=== PATIENT | male | born 1955 | race Caucasian/White ===

== ENCOUNTER 2017-03-25 19:41 | Inpatient (IN) ==
--- NOTE | 2017-03-25 19:48 | Emergency Department Note ---
Disposition Clinical Impression: Non-STEMI (non-ST elevated myocardial infarction) Disposition: Admitted As Inpatient Condition: Serious Referrals: Zackary Hale MD [Primary Care Provider] - Forms: Work/School Release, ED Satisfaction Letter Time of Disposition: 20:56 General Adult HPI - General Chief complaint: ED Abdominal Pain Stated complaint: Abdominal pain Time Seen by Provider: 03/25/17 19:43 Source: patient Mode of arrival: ambulatory Limitations: no limitations Nursing Notes Reviewed: Yes Vital Signs Reviewed: Yes - History of Present Illness HPI Narrative: 61-year-old male who comes in complaining of diaphoresis and cough and thinks he may have pneumonia. Patient also complains of abdominal pain however he says he's had that since 2004. Patient's had 3 hernia operations in the early 1999 and states he's had intermittent crampy abdominal pain since then. Patient was actually seen last PM and had a CT scan which was negative lab work was negative. Her for further evaluation. Pt Subjective Complaint: Diaphoresis cough Onset (ago): day(s) Pain Scale: 0 Consistency: constant Improves with: nothing Associated symptoms: Reports: fever/chills - Related Data Home Medications Medication Instructions Recorded Confirmed Albuterol Sulfate [Albuterol 0 puff IH Q4HR PRN 05/17/15 09/28/15 Inhaler] Amlodipine [Norvasc] 5 mg PO DAILY 05/17/15 09/28/15 Atorvastatin Calcium [Lipitor] 80 mg PO HS 05/17/15 09/28/15 Cholestyramine 4 gm PO BIDAC 05/17/15 09/28/15 Ezetimibe [Zetia] 10 mg PO DAILY 05/17/15 09/28/15 GlipiZIDE XL (24 HR) [Glucotrol XL] 10 mg PO BID 05/17/15 09/28/15 Lisinopril [Zestril] 20 mg PO DAILY 05/17/15 09/28/15 Metformin HCl [Glucophage] 1,000 mg PO BID 05/17/15 09/28/15 Pioglitazone [Actos] 45 mg PO 0800 05/17/15 09/28/15 Saxagliptin HCl [Onglyza] 5 mg PO DAILY 05/17/15 09/28/15 Tiotropium [Spiriva] 18 mcg IH 0700 05/17/15 09/28/15 Cyclobenzaprine [Flexeril] 10 mg PO BID PRN 09/28/15 09/28/15 Perphenazine [Trilafon] 8 mg PO DAILY 09/28/15 09/28/15 Previous Rx's Medication Instructions Recorded Cyclobenzaprine [Flexeril] 10 mg PO BID #10 tablet 05/02/15 Dicyclomine [Bentyl] 10 mg PO QID PRN #20 capsule 05/02/15 OxyCODONE/APAP 5/325 [Percocet 1 each PO Q6HR PRN #10 tablet 05/17/15 5/325 MG] Perphenazine [Trilafon] 8 mg PO HS #30 tablet 05/29/15 Azithromycin [Zithromax] 500 mg PO DAILY #10 tablet 10/01/15 Albuterol Sulfate [Albuterol 2 puff IH QID 2 Days 12/03/15 Inhaler] Azithromycin [Azithromycin 6-Tab 250 mg PO DAILY 5 Days 12/03/15 Pack] Benzonatate [Tessalon] 200 mg PO TID PRN #20 capsule 12/03/15 predniSONE [PredniSONE] 20 mg PO BID 5 Days 12/03/15 Allergies Allergy/AdvReac Type Severity Reaction Status Date / Time loxapine [From Loxitane] Allergy See Verified 09/27/15 23:44 Comments betamethasone AdvReac Hives Verified 09/27/15 23:44 [From Lotrisone] clotrimazole [From Lotrisone] AdvReac Hives Verified 09/27/15 23:44 Sulfa (Sulfonamide AdvReac Hives Verified 09/27/15 23:44 Antibiotics) All systems ED: reviewed and negative except as stated. Constitutional: Reports: fever, chills. Denies: weakness, weight change Eyes: Denies: eye pain, eye discharge, vision change ENT ED: Denies: ear pain, throat pain, dental pain, hearing loss, epistaxis, congestion, dysphagia Cardiovascular: Denies: chest pain, palpitations, dyspnea on exertion, edema, syncope Respiratory: Reports: cough. Denies: dyspnea, wheezes, hemoptysis, stridor Gastrointestinal: Reports: abdominal pain. Denies: nausea, vomiting, diarrhea, constipation, hematemesis, melena, hematochezia Genitourinary: Denies: urgency, dysuria, frequency, hematuria Musculoskeletal: Denies: back pain, neck pain, arthralgia, myalgia Integumentary: Denies: rash, abrasion, lesions Neurological: Denies: headache, weakness, numbness, paresthesias, confusion, abnormal gait, vertigo Psychiatric: Denies: anxiety, depression, suicidal thoughts, homicidal thoughts , auditory hallucinations, visual hallucinations Endocrine: Denies: fatigue Hematological/Lymphatic: Denies: easy bleeding, easy bruising Allergic/Immunologic: Denies: facial swelling, urticaria Past Medical History - Past Medical History Medical history: Reports: cancer, diabetes, other Surgical history: Reports: herniorrhaphy, other (orchiectomy) Psychiatric history: Reports: schizophrenia, other - Social History Smoking Status: Never smoker Smokeless Tobacco Status: No Alcohol use: Reports: none Drug use: Reports: none Physical Exam - General Limitations: no limitations General appearance: alert, in no apparent distress, other (Diaphoretic) - Head Head exam: atraumatic, normocephalic, normal inspection - Eye Eye exam: Present: normal appearance, PERRL, EOMI - ENT ENT exam: normal exam, normal oropharynx, mucous membranes moist - Neck Neck exam: Present: normal inspection, full ROM, trachea midline - Chest Chest inspection: Present: normal inspection, symmetric chest wall rise - Respiratory Respiratory exam: Present: normal lung sounds bilaterally - Cardiovascular Cardiovascular exam: Present: regular rate, normal rhythm, normal heart sounds - Abdominal Exam Abdominal exam: Present: soft, Non-Tender. Absent: tenderness, distention, guarding, rebound, rigidity - Extremities Exam Extremities exam: Present: normal inspection, full ROM. Absent: tenderness, pedal edema - Expanded Lower Extremity Exam Neurovascular/Tendon exam: Absent: motor deficit, sensory deficit, tendon deficit Gait: observed and normal - Back Exam Back exam: Present: normal inspection, full ROM. Absent: tenderness - Neurological Exam Neurological exam: Present: alert, oriented X3 - Psychiatric Psychiatric exam: Present: normal affect, normal mood - Skin Skin exam: Present: warm, intact, normal color, diaphoresis Course - Reevaluation(s) Reevaluation #1: 61-year-old who came in complaining of upper abdominal pain and thinking that he may have pneumonia with a cough and he he's been real sweaty and feeling like he's having a fever. Patient denied any chest pain EKG shows no acute change however his troponin came back at 11.7. Consultation obtained from cardiology who recommends heparin and admission for possible catheter. Time: 20:49 - Consultations Consultation #1: Discussed with Dr. Engle, heparinize if no contraindications admit to hospitalist. Time: 20:53 Consultation #2: Discussed with , admit. Time: 21:07 Vital Signs Temperature 98.3 F 03/25/17 19:44 Pulse Rate 92 03/25/17 19:44 Respiratory Rate 20 03/25/17 19:44 Blood Pressure 156/103 03/25/17 19:44 O2 Sat by Pulse Oximetry 95 03/25/17 19:44 Temperature 98.3 F 03/25/17 19:44 Pulse Rate 93 03/25/17 20:30 Respiratory Rate 20 03/25/17 20:30 Blood Pressure 131/70 03/25/17 20:30 O2 Sat by Pulse Oximetry 94 03/25/17 20:30 Oxygen Delivery Oxygen Delivery Room Air Medical Decision Making - Lab Data Lab results reviewed: Yes I reviewed the patient's lab results. Result diagrams: 03/25/17 20:03 03/25/17 20:03 Lab Results 03/25/17 03/25/17 03/25/17 Range/Units 20:03 20:03 20:03 WBC 15.3 H (4.3-11.1) K/mcL RBC 5.25 (4.19-5.50) M/mcL Hgb 16.4 (12.9-16.9) g/dL Hct 49.6 (37.5-50.1) % MCV 94.5 (83.0-100.0) fL MCH 31.2 (28.0-33.3) pg MCHC 33.1 (31.6-35.5) g/dL RDW 11.9 (11.5-14.5) % Plt Count 235 (140-400) K/mcL MPV 10.2 (9.4-12.4) fL Immature Gran % 0.4 (0-4) % Seg Neutrophils % 81.2 % Lymphocytes % 10.4 % Monocytes % 7.1 % Eosinophils % 0.6 % Basophils % 0.3 % Neutrophils # 12.4 H (1.6-8.9) K/mcL Lymphocytes # 1.6 (0.6-4.6) K/mcL Monocytes # 1.1 (0.0-1.3) K/mcL Eosinophils # 0.1 (0.0-0.6) K/mcL Basophils # 0.1 (0.0-0.2) K/mcL Sodium 135 L (136-145) mEq/L Potassium 4.3 (3.5-4.5) mEq/L Chloride 101 (98-109) mEq/L Carbon Dioxide 23 (19-29) mEq/L BUN 10 (8-26) mg/dL Creatinine 0.80 (0.72-1.25) mg/dL Est GFR ( Amer) > 60 (> 60) Est GFR (Non-Af Amer) > 60 (> 60) BUN/Creatinine Ratio 13 (6-26) Glucose 239 H (70-99) mg/dL Calculated Osmolality 287 (280-300) Lactic Acid 2.2 (0.5-2.2) mmol/L Calcium 9.2 (8.6-10.8) mg/dL Troponin I (0-0.03) ng/mL 03/25/17 Range/Units 20:03 WBC (4.3-11.1) K/mcL RBC (4.19-5.50) M/mcL Hgb (12.9-16.9) g/dL Hct (37.5-50.1) % MCV (83.0-100.0) fL MCH (28.0-33.3) pg MCHC (31.6-35.5) g/dL RDW (11.5-14.5) % Plt Count (140-400) K/mcL MPV (9.4-12.4) fL Immature Gran % (0-4) % Seg Neutrophils % % Lymphocytes % % Monocytes % % Eosinophils % % Basophils % % Neutrophils # (1.6-8.9) K/mcL Lymphocytes # (0.6-4.6) K/mcL Monocytes # (0.0-1.3) K/mcL Eosinophils # (0.0-0.6) K/mcL Basophils # (0.0-0.2) K/mcL Sodium (136-145) mEq/L Potassium (3.5-4.5) mEq/L Chloride (98-109) mEq/L Carbon Dioxide (19-29) mEq/L BUN (8-26) mg/dL Creatinine (0.72-1.25) mg/dL Est GFR ( Amer) (> 60) Est GFR (Non-Af Amer) (> 60) BUN/Creatinine Ratio (6-26) Glucose (70-99) mg/dL Calculated Osmolality (280-300) Lactic Acid (0.5-2.2) mmol/L Calcium (8.6-10.8) mg/dL Troponin I 11.73 H* (0-0.03) ng/mL - Radiology Data Radiology results reviewed: Yes I reviewed the patient's radiology results. Chest X-Ray 03/25/17 19:44 IMPRESSION: No evidence of acute cardiopulmonary disease. Mild bibasilar atelectasis. D/ / Kole Villatoro MD / Kole Villatoro MD Interpreting Provider: Kole Villatoro MD - EKG Data EKG #1 EKG attestation: Yes I reviewed and interpreted this EKG. EKG shows normal: sinus rhythm Rate: normal Rhythm: NSR Interpretation: no acute changes Critical Care Time Critical Care Time: Yes Total Critical Care Time: 30 Attestation: The high probability of a clinically significant, sudden or life threatening deterioration of the [cardiovascular] system(s) required my full and direct attention, intervention and personal management. The aggregate critical care time was [] minutes. This time is in addition to time spent performing reported procedures but includes the following: [x] Data Review and interpretation [x] Patient assessment and monitoring of vital signs [x] Documentation [x] Medication orders and management
[2017-03-25 20:12] LABS: Basophils # 0.1 K/mcL (0.0-0.2); Basophils % 0.3 %; Eosinophils # 0.1 K/mcL (0.0-0.6); Eosinophils % 0.6 %; Hematocrit 49.6 % (37.5-50.1); Hemoglobin 16.4 g/dL (12.9-16.9); Immature Granulocytes % 0.4 % (0-4); Lymphocytes # 1.6 K/mcL (0.6-4.6); Lymphocytes % 10.4 %; Mean Corpuscular HGB Conc 33.1 g/dL (31.6-35.5); Mean Corpuscular Hemoglobin 31.2 pg (28.0-33.3); Mean Corpuscular Volume 94.5 fL (83.0-100.0); Mean Platelet Volume 10.2 fL (9.4-12.4); Monocytes # 1.1 K/mcL (0.0-1.3); Monocytes % 7.1 %; Neutrophils # 12.4 K/mcL (1.6-8.9); Platelet Count 235 K/mcL (140-400); Red Blood Count 5.25 M/mcL (4.19-5.50); Red Cell Distribution Width 11.9 % (11.5-14.5); Segmented Neutrophils % 81.2 %
[2017-03-25 20:26] LABS: BUN/Creatinine Ratio 13 (6-26); Blood Urea Nitrogen 10 mg/dL (8-26); Calcium 9.2 mg/dL (8.6-10.8); Carbon Dioxide 23 mEq/L (19-29); Chloride 101 mEq/L (98-109); Glucose 239 mg/dL (70-99); Osmolality,Calculated 287 (280-300); Potassium 4.3 mEq/L (3.5-4.5); Sodium 135 mEq/L (136-145); eGFR For African Americans > 60 (> 60); eGFR For Non-African Americans > 60 (> 60)
[2017-03-25] MEDS ORDERED: *HR* Heparin 5,000 UNIT/ML VIAL IVP ONE (20:54)
[2017-03-25] MEDS ORDERED: *HR* Heparin 5,000 UNIT/ML VIAL IVP PRN (20:54)
[2017-03-25 21:14] LABS: Prothrombin Time 10.7 Seconds (9.4-12.1)
[2017-03-25 21:16] LABS: Activated Partial Thrombo Time 30.4 Seconds (26.0-36.0)
[2017-03-25] MEDS: Heparin 25,000 UNIT/500 ML D5W 25,000 UNIT/500 ML MLS IVC SCH (21:43)
[2017-03-25] MEDS ORDERED: Naloxone 0.4 MG/ML INJ IVP PRN (22:15)
[2017-03-25] MEDS ORDERED: *HR* HYDROcodone/Acet 5/325 mg TABLET PO PRN (22:15)
[2017-03-25] MEDS ORDERED: Acetaminophen 325 MG TABLET PO PRN (22:15)
[2017-03-25] MEDS ORDERED: Dextrose Gel 15 GM PO PRN ×2 (22:19)
[2017-03-25] MEDS ORDERED: *HR* Dextrose 50 % in Water (Syg) 50 ML SYRINGE IVP PRN (22:19)
[2017-03-25] MEDS ORDERED: D5% in Water 1,000 ML IVC PRN (22:19)
[2017-03-25] MEDS ORDERED: Ipratropium/Albuterol Neb 3 ML IH PRN (22:22)
[2017-03-25] MEDS: 0.9 % Sodium Chloride 1,000 ML IVC SCH (23:29)
[2017-03-25] MEDS: Insulin LISPRO 300 UNITS/3 ML VIAL SQ SCH (23:31)
[2017-03-26] MEDS: *HR* Morphine 2 MG/ML SYRINGE IVP PRN ×2 (01:57→06:28)
--- NOTE | 2017-03-26 05:22 | Internal Med History&Physical ---
Date of Encounter: 03/25/17 Time of Encounter: 21:00 Assessment and Plan (1) Non-STEMI (non-ST elevated myocardial infarction) Current visit: Yes Status: Acute Patient presented with abdominal pain, nausea, mild chest pain with shortness of breath. EKG shows no ST elevation. - Abdominal CT negative, patient does not have significant abdominal tenderness , rebound, or guarding. - Troponin dynamically increased. Consider NSTEMI. - Cardiology was consulted by ER. Recommend to start heparin drip. - Also placed pain medication for pain control. - Continuous cardiac monitoring. - Keep nothing by mouth at this point for possible a.m. procedure. Patient is at high risk because of his heparin drip, need close monitoring. (2) COPD (chronic obstructive pulmonary disease) Current visit: Yes Status: Acute Stable. Continue home medications 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 - Other emphysema (3) Diabetes Current visit: Yes Status: Acute We will cover patient with a sliding scale. 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 Emmanuel is a 61 year old male with history of COPD, diabetes, presented to emergency room for abdominal pain. Patient had abdominal CT, which is unremarkable. Patient was discharged home initially but still has pain. However, the pain persists and the patient came back to emergency room again. He has nausea but no vomiting. He has a mild chest pain with shortness of breath. Patient has diaphoresis. He was also found elevated troponin. He was admitted as NSTEMI. Past Med Surg Social Fam HX - Past Medical History Medical history: cancer, diabetes Psychiatric history: schizophrenia - Past Surgical History Surgical History: herniorrhaphy, other - Social History Smoking Status: Current every day smoker Packs per day: 1 Smokeless Tobacco Status: No Alcohol use: none Drug use: none - Family History Father Adopted: No Living Status: Age at : 64 Hx Family Cardiac Disorders: Yes Mother Living Status: Hx Family Cardiac Disorders: No Hx Family Respiratory Disorders: No Hx Family Cancer: Yes Internal Medicine - H&P: Meds Albuterol Sulfate [Albuterol Inhaler] 2 puff IH Q4HR PRN 05/17/15 [History] Amlodipine [Norvasc] 5 mg PO DAILY 05/17/15 [History] Atorvastatin Calcium [Lipitor] 80 mg PO HS 05/17/15 [History] Cholestyramine 4 gm PO BIDAC 05/17/15 [History] Ezetimibe [Zetia] 10 mg PO DAILY 05/17/15 [History] Lisinopril [Zestril] 20 mg PO DAILY 05/17/15 [History] Metformin HCl [Glucophage] 1,000 mg PO BID 05/17/15 [History] Pioglitazone [Actos] 45 mg PO 0800 05/17/15 [History] Tiotropium [Spiriva] 18 mcg IH 0700 05/17/15 [History] Perphenazine [Trilafon] 8 mg PO DAILY 09/28/15 [History] Fluticasone Propionate [Flovent Hfa] 1 puff IH DAILY 03/25/17 [History] SitaGLIPtin [Januvia] 100 mg PO DAILY 03/25/17 [History] glipiZIDE [Glipizide] 10 mg PO BID 03/25/17 [History] 3 Allergy/AdvReac Type Severity Reaction Status Date / Time loxapine [From Loxitane] Allergy See Verified 09/27/15 23:44 Comments betamethasone AdvReac Hives Verified 09/27/15 23:44 [From Lotrisone] clotrimazole [From Lotrisone] AdvReac Hives Verified 09/27/15 23:44 Sulfa (Sulfonamide AdvReac Hives Verified 09/27/15 23:44 Antibiotics) All Systems PM: A 10-system review of systems was performed and is negative for pertinent findings except as documented above in the HPI. - Constitutional Vitals: Temp Pulse Resp BP Pulse Ox 97.9 F 84 16 141/91 97 03/25/17 22:59 03/25/17 22:59 03/25/17 22:59 03/25/17 22:59 03/25/17 23:11 General appearance: Present: A&O X 3, no acute distress, answers questions appropriately - Head Head exam: Present: atraumatic, normocephalic - Eye Eye exam: Present: PERRL, conjuntiva pink, sclera anicteric Pupils: Present: PERRL - Neck Neck exam general surgery: Present: supple, trachea midline. Absent: lymphadenopathy - Respiratory Respiratory exam: Present: CTAB. Absent: accessory muscle use, rales, rhonchi, wheezes - Cardiovascular Cardiovascular exam: Present: RRR, +S1, +S2. Absent: diastolic murmur, gallop, rubs, systolic murmur - GI/Abdominal GI/Abdominal exam: Present: normal bowel sounds, soft, no peritoneal signs. Absent: distended, tenderness - Extremities Exam Extremities exam: Present: warm, radial pulses palpable and symmetrical. Absent : calf tenderness, cyanotic, pedal edema - Neurological Exam Neurological exam: Present: CN II-XII intact, oriented X3, no focal deficits. Absent: pronater drift, facial droop, speech deficit - Skin Skin exam: Present: dry, intact Internal Med - H&P Results - Labs CBC & Chem 7: 03/25/17 20:03 03/25/17 20:03 Labs: Cardiac Enzymes 03/25/17 Range/Units 22:49 Troponin I 20.83 H* (0-0.03) ng/mL - EKG Data -: EKG Interpreted by Myself EKG shows normal: sinus rhythm Rate: normal
[2017-03-26 05:42] LABS: Basophils % 0.3 %; Eosinophils # 0.1 K/mcL (0.0-0.6); Hematocrit 49.4 % (37.5-50.1); Hemoglobin 16.1 g/dL (12.9-16.9); Immature Granulocytes % 0.5 % (0-4); Lymphocytes % 15.9 %; Mean Corpuscular HGB Conc 32.6 g/dL (31.6-35.5); Mean Corpuscular Hemoglobin 31.1 pg (28.0-33.3); Mean Corpuscular Volume 95.4 fL (83.0-100.0); Mean Platelet Volume 10.8 fL (9.4-12.4); Monocytes # 1.4 K/mcL (0.0-1.3); Monocytes % 11.1 %; Neutrophils # 8.8 K/mcL (1.6-8.9); Platelet Count 203 K/mcL (140-400); Red Blood Count 5.18 M/mcL (4.19-5.50); Segmented Neutrophils % 71.2 %
[2017-03-26 05:55] LABS: BUN/Creatinine Ratio 10 (6-26); Blood Urea Nitrogen 8 mg/dL (8-26); Calcium 9.1 mg/dL (8.6-10.8); Carbon Dioxide 29 mEq/L (19-29); Chloride 100 mEq/L (98-109); Glucose 152 mg/dL (70-99); Magnesium 1.9 mg/dL (1.6-2.6); Osmolality,Calculated 287 (280-300); Sodium 138 mEq/L (136-145); eGFR For African Americans > 60 (> 60); eGFR For Non-African Americans > 60 (> 60)
[2017-03-26 05:56] LABS: Potassium 4.1 mEq/L (3.5-4.5)
[2017-03-26] MEDS: Insulin LISPRO 300 UNITS/3 ML VIAL SQ SCH ×4 (06:24→23:24)
[2017-03-26] MEDS: *HR* Heparin 5,000 UNIT/ML VIAL IVP PRN ×3 (06:34→23:27)
[2017-03-26 08:30] LABS: Cholesterol 223 mg/dL (< 200); HDL Cholesterol 37 mg/dL (40-59); Hemoglobin A1C 9.2 %; LDL Cholesterol,Calculated 149 mg/dL (0-99); Triglycerides 184 mg/dL (< 150)
[2017-03-26] MEDS: Aspirin Enteric Coated 81 MG Tablet PO SCH (09:48)
--- NOTE | 2017-03-26 11:04 | Internal Med Progress Note ---
<MonicaspencerpaulinaTucker moon - Last Filed: 03/26/17 16:39> Date of Encounter: 03/26/17 Time of Encounter: 09:15 - Assessment and plan (1) Non-STEMI (non-ST elevated myocardial infarction) Current Visit: Yes Status: Acute Assessment and plan: Patient has elevated troponins of 11.73, 20.83, 49.12, and >50. ST-depression in lateral leads of current ECG which can indicate lateral ischemia. Cardiology consult has been ordered. Plan to cath. Continue aspirin, metoprolol, and statin. Patient has risk factors for CAD including hyperlipidemia, diabetes, and history of smking. His ASVCD score is 36.6. His JOSUE score is 3. (2) COPD (chronic obstructive pulmonary disease) Current Visit: Yes Status: Acute Assessment and plan: Patient currently denies any shortness of breath. Admits to intermittent coughing. Continue with Duoneb. 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 - Other emphysema (3) Diabetes Current Visit: Yes Status: Acute Assessment and plan: On sliding scale. Qualifiers: Diabetes mellitus type: type 2 Diabetes mellitus complication status: without complication Diabetes mellitus half-way insulin use: without half-way use Qualified Code(s): E11.9 - Type 2 diabetes mellitus without complications (4) DVT prophylaxis Current Visit: Yes Status: Acute Assessment and plan: on heparin. - Subjective Interval history: Patient is a 62 YO M with a PMH of COPD and diabetes that came into the Ed yesterday for upper abdominal pain. He said that the pain was non-constant, non- radiating, lasted about a day before he came to the ED, and rates it as a 8/10. He said it occurred when he was taking out the trash yesterday. He says this had never happened before. He notes that for the past month, he has been having shortness of breath with exertion. He admits to productive coughing for the past month as well. He denies any fever, chills, or hematemesis. He describes numbness/tingling in his L arm at the time of his abdominal pain. On arrival to the ED, patient had an elevated troponin of 11.73 and an EKG with signs of ST- depression in the lateral leads consistent with possible lateral ischemia. He was admitted for an NSTEMI. When spoken to today, patient currently denies chest pain, shortness of breath, headaches, dizziness, syncope, nausea, or vomiting. - Constitutional Vitals: Temp Pulse Resp BP Pulse Ox 97.5 F L 70 20 118/73 93 03/26/17 06:51 03/26/17 06:51 03/26/17 06:51 03/26/17 06:51 03/26/17 06:51 General appearance: Present: A&O X 3, no acute distress, answers questions appropriately - Respiratory Respiratory exam: Present: CTAB. Absent: respiratory distress, rhonchi, wheezes , tachypnea - Cardiovascular Cardiovascular exam: Present: RRR, +S1, +S2. Absent: diastolic murmur, systolic murmur, tachycardia - GI/Abdominal GI/Abdominal exam: Present: normal bowel sounds, soft. Absent: guarding, pulsatile mass, rebound, tenderness - Extremities Exam Extremities exam: Present: radial pulses palpable and symmetrical. Absent: pedal edema Additional comments: Pedal pulses intact bilaterally. Internal Medicine: Result - Labs CBC & Chem 7: 03/26/17 04:44 03/26/17 04:44 Labs: Short CBC 03/26/17 Range/Units 04:44 WBC 12.4 H (4.3-11.1) K/mcL Hgb 16.1 (12.9-16.9) g/dL Hct 49.4 (37.5-50.1) % Plt Count 203 (140-400) K/mcL Neutrophils # 8.8 (1.6-8.9) K/mcL BMP 03/26/17 04:44 Sodium 138 Potassium 4.1 Chloride 100 Carbon Dioxide 29 BUN 8 Creatinine 0.79 Glucose 152 H Calcium 9.1 Cardiac Enzymes 03/25/17 03/25/17 03/26/17 20:03 22:49 04:44 Troponin I 11.73 H* 20.83 H* 49.12 H* 03/26/17 10:30 Troponin I > 50.00 H* - ABG Interpretation ABG results: PT/INR, D-dimer PT 10.7 Seconds (9.4-12.1) 03/25/17 20:03 - Prior EKG Data Prior EKG available for review: yes When compared to previous EKG: there are significant changes EKG comments: 03/26/17 11:17 ST depression in lateral leads of V4-V6 that were not present in EKG from 2016. Consult Discharge Plan - Plan Referrals: Zackary Hale MD [Primary Care Provider] - 04/06/17 9:00 am <Jad Mtaa - Last Filed: 03/26/17 17:29> Date of Encounter: 03/26/17 - Constitutional Vitals: Temp Pulse Resp BP Pulse Ox 97.8 F 75 16 114/62 96 03/26/17 16:30 03/26/17 16:30 03/26/17 16:30 03/26/17 16:30 03/26/17 16:30 Internal Medicine: Result - Labs CBC & Chem 7: 03/26/17 04:44 03/26/17 04:44 Labs: Short CBC 03/26/17 Range/Units 04:44 WBC 12.4 H (4.3-11.1) K/mcL Hgb 16.1 (12.9-16.9) g/dL Hct 49.4 (37.5-50.1) % Plt Count 203 (140-400) K/mcL Neutrophils # 8.8 (1.6-8.9) K/mcL BMP 03/26/17 04:44 Sodium 138 Potassium 4.1 Chloride 100 Carbon Dioxide 29 BUN 8 Creatinine 0.79 Glucose 152 H Calcium 9.1 Cardiac Enzymes 03/25/17 03/26/17 03/26/17 Range/Units 22:49 04:44 10:30 Troponin I 20.83 H* 49.12 H* > 50.00 H* (0-0.03) ng/mL - ABG Interpretation ABG results: PT/INR, D-dimer PT 10.7 Seconds (9.4-12.1) 03/25/17 20:03 - Attending Attestation I have independently seen and examined this patient on 03/26/17, reviewed the EMR and discussed plan of care with the patient and resident physician 61 M with Obesity, Uncontrolled DM, Tobacco abuse, HTN. He is admitted following complains of abdominal discomfort, nausea Work up on admission revealed ST depression in anteroseptal leads and peak troponi n>50 At time of review, patient denies chest pain, but has SOB and epigastric discomfort Cardiology had been consulted, and patient had been started on BB, ASA, Heparin , Statin, awaiting [facility] Physical exam: VSS, sitting up in bed, speaks full sentences appeared anxious, obese. Conjunctiva is not pale, oral mucosa is moist, no cyanosis, S1, S2, no m/ g/r, abdomen is soft and not tender, he has no pedal edema labs and Imaging reviewed: CBC WNL, Chem WNL, A1C 9.2, Lipid panel with elevated LDl, low HDL, EKG with ST depression and TWI in V4-V6, TWI in V2-V3. CXR is unremarkable A/P: NSTEMI. CMP. Cardio eval. Continue ASA, Heparin, BB, obtain ECHO, add ACEI. For [facility] today. Rest of details as in resident physician's documentaion
--- NOTE | 2017-03-26 12:39 | Cardiology Consult Note ---
Date of Encounter: 03/26/17 Time of Encounter: 12:30 Assessment and Plan (1) Non-STEMI (non-ST elevated myocardial infarction) Current Visit: Yes Status: Acute A/R/B of C discussed with him and he is aware and wishes to proceed. EF assessment to be completed and cardiac rehab consult. Symptoms are stable at this point. (2) HTN (hypertension) Current Visit: Yes Status: Acute Continue antiHTN Qualifiers: Hypertension type: essential hypertension Qualified Code(s): I10 - Essential (primary) hypertension (3) Diabetes Current Visit: Yes Status: Acute SSI QID FS Qualifiers: Diabetes mellitus type: type 2 Diabetes mellitus complication status: without complication Diabetes mellitus intermodal dispatcher insulin use: without intermodal dispatcher use Qualified Code(s): E11.9 - Type 2 diabetes mellitus without complications Discussion w patient/family: The assessment and plan as outlined above was discussed with the patient and/or family members who expressed understanding and agreement. All questions were answered. Thank you for involving us in the care of your patient. Please call with any questions. History of Present Illness Consult date: 03/26/17 History of present illness: Mr. Emmanuel is a 61 year old male smoker with no previous cardiac history with diabetes and HTN. He presented a couple of days with generalized abdominal pain to the ED ruled out for intraabdominal process with CT. He later developed left finger tingling and informed by his PCP to return to ED where his troponin was elevated. No acute EKG changes. He has associated dyspnea. Symptoms improved overnight with medical management and on heparin drip/oxygen. Past Med Surg Social Fam HX - Past Medical History Medical history: cancer, diabetes Psychiatric history: schizophrenia - Past Surgical History Surgical History: herniorrhaphy, other - Social History Smoking Status: Current every day smoker Packs per day: 1 Smokeless Tobacco Status: No Alcohol use: none Drug use: none - Family History Father Adopted: No Living Status: Age at : 66 Hx Family Cardiac Disorders: Yes Mother Living Status: Hx Family Cardiac Disorders: No Hx Family Respiratory Disorders: No Hx Family Cancer: Yes Medications and Allergies Albuterol Sulfate [Albuterol Inhaler] 2 puff IH Q4HR PRN 05/17/15 [History] Amlodipine [Norvasc] 5 mg PO DAILY 05/17/15 [History] Atorvastatin Calcium [Lipitor] 80 mg PO HS 05/17/15 [History] Cholestyramine 4 gm PO BIDAC 05/17/15 [History] Ezetimibe [Zetia] 10 mg PO DAILY 05/17/15 [History] Lisinopril [Zestril] 20 mg PO DAILY 05/17/15 [History] Metformin HCl [Glucophage] 1,000 mg PO BID 05/17/15 [History] Pioglitazone [Actos] 45 mg PO 0800 05/17/15 [History] Tiotropium [Spiriva] 18 mcg IH 0700 05/17/15 [History] Perphenazine [Trilafon] 8 mg PO DAILY 09/28/15 [History] Fluticasone Propionate [Flovent Hfa] 1 puff IH DAILY 03/25/17 [History] SitaGLIPtin [Januvia] 100 mg PO DAILY 03/25/17 [History] glipiZIDE [Glipizide] 10 mg PO BID 03/25/17 [History] 3 Allergy/AdvReac Type Severity Reaction Status Date / Time loxapine [From Loxitane] Allergy See Verified 09/27/15 23:44 Comments betamethasone AdvReac Hives Verified 09/27/15 23:44 [From Lotrisone] clotrimazole [From Lotrisone] AdvReac Hives Verified 09/27/15 23:44 Sulfa (Sulfonamide AdvReac Hives Verified 09/27/15 23:44 Antibiotics) All Systems Review: A 10-system review of systems was performed and is negative for pertinent findings except as documented above in the HPI. - Constitutional Constitutional: no chills, no fever(s) - EENT Eyes: no blurred vision, no loss of vision Nose, mouth and throat: no bleeding gums, no epistaxis - Cardiovascular Cardiovascular: no chest pain at rest, no chest pain with exertion - Respiratory Respiratory: dyspnea, no hemoptysis - Gastrointestinal Gastrointestinal: no hematemesis, no hematochezia - Genitourinary Genitourinary: no hematuria, no nocturia - Musculoskeletal Musculoskeletal: no arthralgias, no myalgias - Integumentary Integumentary: no rash, no unusual bruising - Neurological Neurological: no dizziness, no memory loss - Psychiatric Psychiatric: no hallucinations, no panic attacks - Hematological/Lymphatic Hematologic/Lymphatic: no easy bleeding, no easy bruising Physical Examination General: Conversant HEENT: Atraumatic Neck: No JVD Cardiac: Reg Rate and Rhythm Lungs: Other (bibasilar crackles) Neuro: Alert and responsive Abdomen: Soft Skin: No rashes noted on visualized skin Musculoskeletal: No Chest Wall Tenderness Extremities: No Edema Results 03/26/17 04:44 03/26/17 04:44 Lab Results 03/25/17 03/26/17 03/26/17 22:49 04:44 04:44 WBC 12.4 H Hgb 16.1 Hct 49.4 Plt Count 203 APTT Sodium 138 Potassium 4.1 Chloride 100 Carbon Dioxide 29 BUN 8 Creatinine 0.79 Glucose 152 H Calcium 9.1 Magnesium 1.9 Troponin I 20.83 H* 03/26/17 03/26/17 03/26/17 04:44 04:44 10:30 WBC Hgb Hct Plt Count APTT 57.9 H D Sodium Potassium Chloride Carbon Dioxide BUN Creatinine Glucose Calcium Magnesium Troponin I 49.12 H* > 50.00 H* - EKG Interpretation EKG results cardiology: personally reviewed, sinus rhythm, no diagnostic ischemia Consult Discharge Plan - Plan Referrals: Zackary Hale MD [Primary Care Provider] -
--- NOTE | 2017-03-26 13:01 | Pre-Sedation Evaluation ---
Pre-sedation evaluation - Pre-sedation checklist Date of procedure: 03/26/17 Procedure: LEFT HEART CATHETERIZATION Recent Vitals: Last Vital Signs Temp 97.5 F L 03/26/17 06:51 Pulse 70 03/26/17 06:51 Resp 20 03/26/17 06:51 BP 118/73 03/26/17 06:51 Pulse Ox 93 03/26/17 06:51 H&P (including ROS) documented in medical record: Yes Previous reaction to sedatives/anesthetics: No Dietary Status: NPO after Midnight Airway Assessment: Patient can open mouth completely, TMJ function normal, Micrognathia (under-bite, receding chin) absent, Neck with adequate range of motion Dentition: dentures removed Possible difficult airway: No ASA Classification *see protocol: CLASS II-Mild systemic disease Plan of Care: Pt appropriate candidate for procedure/moderate/conscious sedation , Risks/benefits of procedure/sedation discussed w/ patient/family
[2017-03-26] MEDS ORDERED: 0.9 % Sodium Chloride 1,000 ML ONE (13:43)
[2017-03-26] MEDS ORDERED: *HR* Midazolam HCl 5 MG/5 ML VIAL IVP ONE (13:43)
[2017-03-26] MEDS ORDERED: *HR* FentaNYL (PF) 100 MCG/2 ML VIAL ONE (13:43)
[2017-03-26] MEDS ORDERED: *HR* Heparin 10,000 UNIT/10 ML VIAL ONE (13:44)
[2017-03-26] MEDS ORDERED: Heparin 1,000 UNITS/500 mL NS 500 ML ONE (13:44)
[2017-03-26] MEDS ORDERED: Nitroglycerin 1,000 MCG/10 ML VIAL IV ONE (13:49)
[2017-03-26] MEDS ORDERED: Nitroglycerin 0.4 MG TAB.SUBL SL PRN (15:02)
--- NOTE | 2017-03-26 16:12 | Cardiothoracic Consult Note ---
Date of Encounter: 03/26/17 Time of Encounter: 16:09 Assessment and Plan (1) Non-STEMI (non-ST elevated myocardial infarction) Current Visit: Yes Status: Acute The assessment and plan as outlined above was discussed with the patient and/or family members who expressed understanding and agreement. All questions were answered. The patient has severe coronary artery disease with an ejection fraction of 10% . He is not a candidate for coronary artery bypass grafting at this time in my opinion. It is unclear whether the circumflex could be bypassed. The LAD could probably be bypassed but is quite a small vessel. Risks of surgery would be prohibitive due to the extremely poor ventricular function. If bypass surgery is planned, it would need to be done in [place] with LVAD backup. The prognosis is extremely guarded. - History of Present Illness Consult date: 03/26/17 History of present illness: Mr. Emmanuel is a 61 year old male History of present illness. The patient is a 61-year-old gentleman who originally presented with abdominal pain. Abdominal CT scan was negative. He came back with chest pain and shortness of breath. Troponin is presently over 50. No previous history of myocardial infarction. He has had some shortness of breath and dyspnea on exertion. Cardiac catheterization done today revealed an ejection fraction of 10%. He has a small nondominant right coronary artery which is free of disease. He has a subtotal occlusion of his LAD with a small distal vessel. He has 100% block in the obtuse marginal branch of the circumflex. The obtuse marginal branch fills very faintly. Past medical history is notable for diabetes. He takes oral agents, but has been recommended to go on insulin. He has a history of hypertension and hypercholesterolemia. He had testicular cancer many years ago. He had a diagnosis of schizophrenia many years ago but no problems recently. Social history. He lives in [place] with his who is had 2 strokes. He continues to smoke one pack of cigarettes per day AGAINST MEDICAL ADVICE. He does have history of COPD and has used oxygen in the past. Does not drink alcohol. Family history is positive for coronary artery disease in her brother. Review of systems is negative for stroke or TIA in the patient. Past Med Surg Social Fam HX - Past Medical History Medical history: cancer, diabetes Psychiatric history: schizophrenia - Past Surgical History Surgical History: herniorrhaphy, other - Social History Smoking Status: Current every day smoker Packs per day: 1 Smokeless Tobacco Status: No Alcohol use: none Drug use: none - Family History Father Adopted: No Living Status: Age at : 66 Hx Family Cardiac Disorders: Yes Mother Living Status: Hx Family Cardiac Disorders: No Hx Family Respiratory Disorders: No Hx Family Cancer: Yes Medications and Allergies Albuterol Sulfate [Albuterol Inhaler] 2 puff IH Q4HR PRN 05/17/15 [History] Amlodipine [Norvasc] 5 mg PO DAILY 05/17/15 [History] Atorvastatin Calcium [Lipitor] 80 mg PO HS 05/17/15 [History] Cholestyramine 4 gm PO BIDAC 05/17/15 [History] Ezetimibe [Zetia] 10 mg PO DAILY 05/17/15 [History] Lisinopril [Zestril] 20 mg PO DAILY 05/17/15 [History] Metformin HCl [Glucophage] 1,000 mg PO BID 05/17/15 [History] Pioglitazone [Actos] 45 mg PO 0800 05/17/15 [History] Tiotropium [Spiriva] 18 mcg IH 0700 05/17/15 [History] Perphenazine [Trilafon] 8 mg PO DAILY 09/28/15 [History] Fluticasone Propionate [Flovent Hfa] 1 puff IH DAILY 03/25/17 [History] SitaGLIPtin [Januvia] 100 mg PO DAILY 03/25/17 [History] glipiZIDE [Glipizide] 10 mg PO BID 03/25/17 [History] 3 Allergy/AdvReac Type Severity Reaction Status Date / Time loxapine [From Loxitane] Allergy See Verified 09/27/15 23:44 Comments betamethasone AdvReac Hives Verified 09/27/15 23:44 [From Lotrisone] clotrimazole [From Lotrisone] AdvReac Hives Verified 09/27/15 23:44 Sulfa (Sulfonamide AdvReac Hives Verified 09/27/15 23:44 Antibiotics) All Systems Review: A 10-system review of systems was performed and is negative for pertinent findings except as documented above in the HPI. Physical Examination The patient has bilateral cataracts. He is edentulous. Neck is supple. Trachea in the midline. No thyromegaly or carotid bruits. Lungs are clear to percussion and auscultation. Heart is in a regular rate and rhythm. No murmurs, gallops or rubs. Abdomen is benign. No tenderness, rebound or guarding. He is status post bilateral inguinal hernia repair. Extremities have 2+ pitting edema. Cranial nerves, motor and sensory are intact. Results 03/26/17 04:44 03/26/17 04:44 Lab Results, Last 24 hours 03/25/17 03/26/17 03/26/17 22:49 04:44 04:44 WBC 12.4 H Hgb 16.1 Hct 49.4 Plt Count 203 APTT Sodium 138 Potassium 4.1 Chloride 100 Carbon Dioxide 29 BUN 8 Creatinine 0.79 Glucose 152 H Calcium 9.1 Magnesium 1.9 Troponin I 20.83 H* 03/26/17 03/26/17 03/26/17 04:44 04:44 10:30 WBC Hgb Hct Plt Count APTT 57.9 H D Sodium Potassium Chloride Carbon Dioxide BUN Creatinine Glucose Calcium Magnesium Troponin I 49.12 H* > 50.00 H* 03/26/17 12:29 WBC Hgb Hct Plt Count APTT 69.3 H Sodium Potassium Chloride Carbon Dioxide BUN Creatinine Glucose Calcium Magnesium Troponin I Consult Discharge Plan - Plan Referrals: Alexia,Zackary Barth MD [Primary Care Provider] - 04/06/17 9:00 am
[2017-03-26] MEDS: 0.9 % Sodium Chloride 1,000 ML IVC SCH (16:58)
[2017-03-26] MEDS: Isosorbide MONOnitrate (24 HR) 30 MG TAB.ER.24H PO SCH (17:00)
--- NOTE | 2017-03-26 17:09 | Discharge Summary ---
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 Qualified Code(s): E11.9 - Type 2 diabetes mellitus without complications (4) DVT prophylaxis Priority: Primary Status: Acute - Discharge Medications Home Medications: Albuterol Sulfate [Albuterol Inhaler] 2 puff IH Q4HR PRN 05/17/15 [History] Amlodipine [Norvasc] 5 mg PO DAILY 05/17/15 [History] Atorvastatin Calcium [Lipitor] 80 mg PO HS 05/17/15 [History] Cholestyramine 4 gm PO BIDAC 05/17/15 [History] Ezetimibe [Zetia] 10 mg PO DAILY 05/17/15 [History] Lisinopril [Zestril] 20 mg PO DAILY 05/17/15 [History] Metformin HCl [Glucophage] 1,000 mg PO BID 05/17/15 [History] Pioglitazone [Actos] 45 mg PO 0800 05/17/15 [History] Tiotropium [Spiriva] 18 mcg IH 0700 05/17/15 [History] Perphenazine [Trilafon] 8 mg PO DAILY 09/28/15 [History] Fluticasone Propionate [Flovent Hfa] 1 puff IH DAILY 03/25/17 [History] SitaGLIPtin [Januvia] 100 mg PO DAILY 03/25/17 [History] glipiZIDE [Glipizide] 10 mg PO BID 03/25/17 [History] Allergies/Adverse Reactions: 3 Allergy/AdvReac Type Severity Reaction Status Date / Time loxapine [From Loxitane] Allergy See Verified 09/27/15 23:44 Comments betamethasone AdvReac Hives Verified 09/27/15 23:44 [From Lotrisone] clotrimazole [From Lotrisone] AdvReac Hives Verified 09/27/15 23:44 Sulfa (Sulfonamide AdvReac Hives Verified 09/27/15 23:44 Antibiotics) Procedures/tests Complete & Pending: Procedures Performed prior 72 hours Category Date Time Status Left Heart Cath [CL Cardiac Catheterization] [CL] Social Contact Worker 03/26/17 12:19 Ordered Routine ECG 12 lead ECG [ECG] Routine Y 03/26/17 12:12 Completed EV echocardiogram Routine Y 03/26/17 12:44 Ordered Date of admission: 03/25/17 21:33 Primary care physician: Zackary Hale MD Consults: 03/25/17 23:21 Consult to [facility] [CONS] Routine Reason for SW Consult: CURRENT [facility] 03/26/17 10:50 Consult to Cardiology [CONS] Stat Comment: Consulting Provider: Cardiology Silvia Reason for Consult: Elevated troponins x3 with ST-depression in lateral leads. Call Completed: No 03/26/17 15:38 Consult to Cardiothoracic Surgery [CONS] Routine Consulting Provider: Cardiothoracic Surgery Silvia Reason for Consult: eval for CABG Call Completed: Yes Discharging clinician: Jad Mata - Patient Status Disposition: Transfer Other Condition: Good - Discharge Instructions Instructions: Myocardial Infarction (DC), Heart Healthy Diet, Ship Loader ( GEN) Follow Up With: Zackary Hale MD [Primary Care Provider] - 04/06/17 9:00 am Additional Instructions: per [facility] - Diet and Activity Activity: as per the cardiac rehab Diet: low salt diet Interval History: Mr. Emmanuel is a 61 year old M with a PMH of COPD and diabetes that came into the Ed yesterday for upper abdominal pain. Hospital course: Mr. Emmanuel is a 61 year old M with a PMH of COPD and diabetes that came into the ED yesterday for upper abdominal pain. He said that the pain was non- constant, non-radiating, lasted about a day before he came to the ED, and rates it as a 8/10. He said it occurred when he was taking out the trash yesterday. He says this had never happened before. He notes that for the past month, he has been having shortness of breath with exertion. He admits to productive coughing for the past month as well. He denies any fever, chills, or hematemesis. He describes numbness/tingling in his L arm at the time of his abdominal pain. On arrival to the ED, patient had an elevated troponin of 11.73 and an EKG with signs of ST-depression in the lateral leads consistent with possible lateral ischemia. His follow-up troponins were 20.83, 49.12, and > 50. He was admitted for an NSTEMI. He subsequently underwent a cardiac catheterization procedure which revealed a double vessel coronary artery disease , subtotal chronic of ostial/proximal LAD, and an EF of 10%. Per cardiology, he is not a candidate for coronary artery bypass grafting. The risk of surgery would be very prohibitive given the due to the extremely poor ventricular function. If bypass is planned, it would need to be performed at a facility with LVAD backup. We have contacted [facility] and they have agreed to accept the patient as a transfer for possible CABG surgery either tonight or tomorrow. - Time Spent with Patient Total time spent providing and/or coordinating discharge services: Less than 30 minutes - Constitutional Vitals: Temp Pulse Resp BP Pulse Ox 97.8 F 75 16 114/62 96 03/26/17 16:30 03/26/17 16:30 03/26/17 16:30 03/26/17 16:30 03/26/17 16:30 General appearance: Present: A&O X 3, no acute distress, answers questions appropriately - Respiratory Respiratory exam: Present: CTAB. Absent: chest wall tenderness, respiratory distress, rhonchi, wheezes, tachypnea - Cardiovascular Cardiovascular exam: Present: RRR, +S1, +S2. Absent: diastolic murmur, systolic murmur, tachycardia - GI/Abdominal GI/Abdominal exam: Present: normal bowel sounds, soft. Absent: guarding, rebound, tenderness - Extremities Exam Extremities exam: Present: radial pulses palpable and symmetrical. Absent: cyanotic, pedal edema Additional comments: Pedal pulses intact bilaterally. <Jad Mata - Last Filed: 03/27/17 13:14> Date of Encounter: 03/27/17 - Discharge Diagnosis (1) Cardiomyopathy Priority: Primary Status: Acute Qualifiers: Cardiomyopathy type: ischemic Qualified Code(s): I25.5 - Ischemic cardiomyopathy (2) CHF (congestive heart failure) Priority: Primary Status: Acute Qualifiers: Congestive heart failure type: combined Congestive heart failure chronicity : acute Qualified Code(s): I50.41 - Acute combined systolic (congestive) and diastolic (congestive) heart failure (3) Non-STEMI (non-ST elevated myocardial infarction) Priority: Primary Status: Acute (4) COPD (chronic obstructive pulmonary disease) Priority: Secondary Status: Chronic 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 - Other emphysema (5) Diabetes Priority: Secondary Status: Chronic Qualifiers: Diabetes mellitus type: type 2 Diabetes mellitus complication status: without complication 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 insulin use: without longterm use Qualified Code(s): E11.9 - Type 2 diabetes mellitus without complications (6) DVT prophylaxis Status: Acute (7) HTN (hypertension) Status: Acute Qualifiers: Hypertension type: essential hypertension Qualified Code(s): I10 - Essential (primary) hypertension Procedures/tests Complete & Pending: Procedures Performed prior 72 hours Category Date Time Status Left Heart Cath [CL Cardiac Catheterization] [CL] Social Contact Worker 03/26/17 12:19 Ordered Routine ECG 12 lead ECG [ECG] Routine Y 03/26/17 12:12 Completed EV echocardiogram Routine Y 03/26/17 12:44 Completed Date of admission: 03/25/17 21:33 Primary care physician: Zackary Hale MD Consults: 03/25/17 23:21 Consult to [facility]eler [CONS] Routine Reason for SW Consult: CURRENT [facility] 03/26/17 10:50 Consult to Cardiology [CONS] Stat Comment: Consulting Provider: Cardiology Silvia Reason for Consult: Elevated troponins x3 with ST-depression in lateral leads. Call Completed: No 03/26/17 15:38 Consult to Cardiothoracic Surgery [CONS] Routine Consulting Provider: Cardiothoracic Surgery Silvia Reason for Consult: eval for CABG Call Completed: Yes Hospital course: Mr. Emmanuel is a 61 year old male Time spent discussing smoking cessation with patient: 3 to 10 minutes - Time Spent with Patient Total time spent providing and/or coordinating discharge services: Greater than 30 minutes (>50 minutes spent on patient encounter, med rec, arranging transfer, education and documentation) - Constitutional Vitals: Temp Pulse Resp BP Pulse Ox 98.4 F 72 16 96/57 93 03/27/17 07:52 03/27/17 07:52 03/27/17 07:52 03/27/17 07:52 03/27/17 07:52 - Head Head exam: Present: atraumatic, normocephalic - Eye Eye exam: Present: PERRL, conjuntiva pink, sclera anicteric Pupils: Present: PERRL - Attending Attestation Patient seen at the bedside with spouse this morning He denies chest pain Endorsed SOB, he is meant to be on home O2, but not complaint because he doesnt want to "blow up the house" He was admitted with NSTEMI with Ischemic CMP, CHFrEF, HLD, DM, HTN, Morbid Obesity LHC revealed severe disease and CTS had recommended transfer to [facility] for evaluation for CABG with LVAD due to severe low EF-10-15% On exam he is sitting up in bed, not in distress, speaks full sentences. Chest is CTAB, HS S1, S2 only, no m/g/r, abdomen is obese and not tender. LHC site on R groin is clean and dry, no hematoma. Extremities with no pedal edema Labs and Imaging reviewed Plan is to feed the patient and transfer to [facility] as soon as a bed is available Smoking cessation counselling done for 3 minutes
[2017-03-26] MEDS: Heparin 25,000 UNIT/500 ML D5W 25,000 UNIT/500 ML MLS IVC SCH (17:21)
[2017-03-27] MEDS: 0.9 % Sodium Chloride 1,000 ML IVC SCH (01:21)
[2017-03-27 05:52] LABS: BUN/Creatinine Ratio 12 (6-26); Basophils % 0.3 %; Blood Urea Nitrogen 8 mg/dL (8-26); Calcium 8.3 mg/dL (8.6-10.8); Carbon Dioxide 28 mEq/L (19-29); Chloride 102 mEq/L (98-109); Eosinophils % 0.3 %; Glucose 170 mg/dL (70-99); Hematocrit 42.3 % (37.5-50.1); Hemoglobin 13.9 g/dL (12.9-16.9); Immature Granulocytes % 0.3 % (0-4); Lymphocytes # 1.6 K/mcL (0.6-4.6); Lymphocytes % 13.4 %; Mean Corpuscular HGB Conc 32.9 g/dL (31.6-35.5); Mean Corpuscular Hemoglobin 31.5 pg (28.0-33.3); Mean Corpuscular Volume 95.9 fL (83.0-100.0); Mean Platelet Volume 10.4 fL (9.4-12.4); Monocytes # 1.5 K/mcL (0.0-1.3); Monocytes % 12.8 %; Neutrophils # 8.5 K/mcL (1.6-8.9); Osmolality,Calculated 286 (280-300); Platelet Count 171 K/mcL (140-400); Red Blood Count 4.41 M/mcL (4.19-5.50); Segmented Neutrophils % 72.9 %; Sodium 137 mEq/L (136-145); eGFR For African Americans > 60 (> 60); eGFR For Non-African Americans > 60 (> 60)
[2017-03-27] MEDS: Insulin LISPRO 300 UNITS/3 ML VIAL SQ SCH ×2 (05:57→12:18)
[2017-03-27] MEDS: Isosorbide MONOnitrate (24 HR) 30 MG TAB.ER.24H PO SCH (07:48)
[2017-03-27] MEDS: Aspirin Enteric Coated 81 MG Tablet PO SCH (07:49)
[2017-03-27] MEDS ORDERED: Spironolactone 25 MG TABLET PO SCH (09:00)
--- NOTE | 2017-03-27 09:41 | Event Note ---
Date of Encounter: 03/27/17 Time of Encounter: 09:41
[2017-03-27] MEDS: Heparin 25,000 UNIT/500 ML D5W 25,000 UNIT/500 ML MLS IVC SCH (10:31)
--- NOTE | 2017-03-27 10:32 | Cardiology Progress Note ---
Date of Encounter: 03/27/17 Time of Encounter: 10:15 Assessment and Plan (1) Non-STEMI (non-ST elevated myocardial infarction) Current Visit: Yes Status: Acute Per Cardiology: NSTEMI with peak trop over 50. S/p [facility] and seen by CT surgery with rec for CT eval at [facility]. DC pending today to [facility]. CP free, On asa, statin, BB, ACEI, Hep gtt. All questions answered. Cardiology will s/o, re-consult PRN, f/u scheduled. Has SW consult already for family needs. (2) Cardiomyopathy Current Visit: Yes Status: Acute Per Cardiology: Ef 15-20%, moderate diastolic dysfxn, no significant valvular dysfxn. IVF now off. Qualifiers: Cardiomyopathy type: ischemic Qualified Code(s): I25.5 - Ischemic cardiomyopathy Discussion w patient/family: The assessment and plan as outlined above was discussed with the patient and/or family members who expressed understanding and agreement. All questions were answered. Thank you for involving us in the care of your patient. Please call with any questions. Subjective Principal diagnosis: NSTEMI, CAD Interval history: Patient denies any chest pain overnight. Reports some mild shortness of breath. Denies any discomfort from his right groin site. Objective Vital Signs, Last 4 Hours Temp Pulse Resp BP Pulse Ox 03/27/17 07:52 98.4 F 72 16 96/57 93 General: Conversant, No Apparent Distress HEENT: Atraumatic, Normocephaly, Mucus Membranes Moist Neck: No JVD, Normal carotid pulses Cardiac: Reg Rate and Rhythm, Normal S1 and S2, No Murmur Lungs: Normal Breath Sounds, No Wheeze, Rales, Rhonchi, Other (diminished to bases) Neuro: Alert and responsive, No focal deficits noted Abdomen: Soft, Non-Tender Skin: No rashes noted on visualized skin, Other (Right groin site dry and intact , no hematoma, no ecchymosis, right dorsal pedis and posterior tibial pulses 1+ palpable) Musculoskeletal: No Chest Wall Tenderness Extremities: No Clubbing, No Cyanosis, No Edema, Normal Pulses Results 03/27/17 05:36 03/27/17 05:36 Lab Results Laboratory Tests 03/25/17 03/25/17 03/26/17 20:03 22:49 04:44 Troponin I 11.73 H* 20.83 H* LDL Cholesterol, Calc 149 H 03/26/17 03/26/17 04:44 10:30 Troponin I 49.12 H* > 50.00 H* LDL Cholesterol, Calc ITS Impressions Chest X-Ray 03/25/17 19:44 IMPRESSION: No evidence of acute cardiopulmonary disease. Mild bibasilar atelectasis. D/ / Kole Villatoro MD / Kole Villatoro MD Interpreting Provider: Kole Villatoro MD Active Medications Acetaminophen (Tylenol) 650 mg PO Q6HR PRN PRN Reason: Mild Pain (1-3) Stop: 09/24/17 22:16 Hydrocodone Bitart/Acetaminophen ([place] 5-325 Mg) 1 tab PO Q4HR PRN PRN Reason: Moderate Pain (4-6) Stop: 09/24/17 22:16 Last Admin: 03/25/17 23:32 Dose: 1 tab Albuterol/Ipratropium (Duoneb) 3 ml IH [id number] PRN PRN Reason: Shortness Of Breath/Wheezing Stop: 09/24/17 22:23 Aspirin (Aspirin Ec) 81 mg PO DAILY [facility] Stop: 09/25/17 09:01 Last Admin: 03/27/17 07:49 Dose: 81 mg Atorvastatin Calcium (Lipitor) 80 mg PO HS [facility] Stop: 09/25/17 21:01 Last Admin: 03/26/17 20:46 Dose: Not Given Carvedilol (Coreg) 3.125 mg PO BIDWM CHARMAINE PRN Reason: Protocol Stop: 09/25/17 17:01 Last Admin: 03/27/17 07:49 Dose: 3.125 mg Dextrose/Water (Dextrose 50% (Syg)) 25 ml IVP AD PRN PRN Reason: Hypoglycemia Stop: 09/24/17 22:20 Glucagon (Glucagen) 1 mg IM ONCE PRN PRN Reason: Hypoglycemia Stop: 09/24/17 22:20 Glucose (Gluctose) 15 gm PO ONCE PRN PRN Reason: Hypoglycemia Stop: 09/24/17 22:20 Glucose (Gluctose) 30 gm PO ONCE PRN PRN Reason: Hypoglycemia Stop: 09/24/17 22:20 Heparin Sodium (Porcine) (Heparin) 4,000 unit IVP Q6HR PRN PRN Reason: SEE COMMENTS Stop: 09/24/17 20:55 Heparin Sodium (Porcine) (Heparin) 2,000 unit IVP Q6H PRN PRN Reason: SEE COMMENTS Stop: 09/24/17 20:55 Last Admin: 03/26/17 23:27 Dose: 2,000 unit Heparin Sodium/Dextrose (Heparin 25,000 Unit/500 Ml D5w) 25,000 unit in 500 mls @ 27.216 mls/hr IVC .[id number] CHARMAINE; 12 UNIT/KG/HR PRN Reason: Protocol Stop: 09/24/17 21:01 Last Titration: 03/27/17 05:52 Dose: 14.55 unit/kg/hr, 33 mls/hr Dextrose (Dextrose 5%) 1,000 mls @ 100 mls/hr IVC .Q10H PRN PRN Reason: HYPOGLYCEMIA Stop: 09/24/17 22:20 Insulin Human Lispro (Humalog) 0 units SQ Q6HR CHARMAINE PRN Reason: Protocol Stop: 09/25/17 00:01 Last Admin: 03/27/17 05:57 Dose: 2 units Isosorbide Mononitrate (Imdur) 30 mg PO DAILY [facility] Stop: 09/25/17 15:16 Last Admin: 03/27/17 07:48 Dose: 30 mg Lisinopril (Zestril) 2.5 mg PO DAILY [facility] PRN Reason: Protocol Stop: 09/26/17 09:01 Last Admin: 03/27/17 07:49 Dose: 2.5 mg Morphine Sulfate (Morphine Sulfate) 2 mg IVP Q4HR PRN PRN Reason: Severe Pain (7-10) Stop: 09/24/17 22:16 Last Admin: 03/26/17 06:28 Dose: 2 mg Naloxone HCl (Narcan) 0.4 mg IVP Q2MIN PRN PRN Reason: Opioid Reversal Stop: 09/24/17 22:16 Nitroglycerin (Nitroglycerin) 0.4 mg SL Q5MIN PRN PRN Reason: Chest Pain Stop: 09/25/17 15:03 Spironolactone (Aldactone) 12.5 mg PO DAILY [facility] Stop: 09/26/17 09:01 Last Admin: 03/27/17 07:48 Dose: 12.5 mg - Imaging and Cardiology Echo: report reviewed Cardiac cath: report reviewed - EKG Interpretation EKG results cardiology: other (SR on tele) Consult Discharge Plan - Plan Referrals: Zackary Hale MD [Primary Care Provider] - 04/06/17 9:00 am
[2017-03-27 11:50] VITALS: BP 96/53
--- NOTE | 2017-03-30 07:55 | Electrocardiograph Report ---
[place] [address] Test Date: 2017-03-25 Pat Name: Deuce Emmanuel Department: 104 Room: 2N03 Gender: M Ux Designer: MELISSA : 1955 Requested By: Diony Larsen Order Number: [id number] Reading MD: Allen Chambers DO Measurements Intervals [place] Rate: 88 P: -49 SD: 155 QRS: 41 QRSD: 98 T: 91 QT: 357 QTc: 402 Interpretive Statements Sinus rhythm LOW QRS VOLTAGE ANTEROSEPTAL MYOCARDIAL INFARCTION, OF INDETERMINATE AGE Electronically Signed On 03-26-2017 16:58:38 EDT by Allen Chambers DO
--- NOTE | 2017-03-30 07:56 | Electrocardiograph Report ---
[address] [place] [address] Test Date: 2017-03-26 Pat Name: Deuce Emmanuel Department: 111 Room: 2N03 Gender: M Certified Coder: YESIKA : 1955 Requested By: Ry Evangelista Order Number: [id number] Reading MD: Allen Chambers DO Measurements Intervals [place] Rate: 68 P: 50 SC: 207 QRS: 5 QRSD: 119 T: 120 QT: 398 QTc: 415 Interpretive Statements SINUS RHYTHM LOW QRS VOLTAGE IN PRECORDIAL LEADS POSSIBLE ANTEROSEPTAL INFARCTION, AGE UNDETERMINED LATERAL ST-T CHANGES POSSIBLY DUE TO ISCHEMIA Electronically Signed On 03-26-2017 17:12:53 EDT by Allen Chambers DO
--- NOTE | 2017-03-30 14:41 | Invasive Diagnostic Lab Proc ---
Name: Deuce Emmanuel Date of Study: 03/26/2017 Date: 1955 Ht: 66.9in Medical Record#: [id number] Age: 61 Wt: 249.12lb Gender: Male BSA: 2.22 Order #: [id number] BMI: 39.1 Physicians Procedure Physician: Nancy Alejandro MD, [facility] Referring MD: Zackary Hale MD Referring MD: Staff Name Position Time In Jay Esparza RN Monitor 02:00 PM Will Mcclain RN City Maintenance Manager 02:00 PM Jay Esparza RN Monitor 02:00 PM Indications Indication Non-Stemi Procedures Performed Procedure L HRT ARTERY/VENTRICLE ANGIO Pre-Procedure Checklist Informed consent is complete signed and on chart. H&P is on chart. ID band is on and ID verified with patient. Patient NPO for procedure The procedure was described for the patient and questions were answered. Blood Pressure: 118/73 ECG is on chart. Rhythm: NSR Plan of Care Patient will tolerate the procedure without complications. Adequate level of comfort will be maintained. Hemodynamics will remain stable Patient will recover from procedure without complications. Respiratory function will be maintained. Cardiac rhythm will remain stable. Patient temperature will be maintained. Patient and/or family have verbalized understanding of the procedure. Patient Education Intravenous Access Time IV Size Location DC'd Fluid/Drip Rate Units RN 01:57 PM 20g 1 07/29" Patent On Arrival Lt Antecubital 0.9NaCl 25 ml/hr Will Mcclain RN Allergies loxapine Sulfa (Sulfonamide Antibiotics) betamethasone clotrimazole Vital Signs Time BP (mmHg) HR (bpm) O2 Sat. RR (bpm) LOC 01:57 PM 113 / 79 70 93 % 20 5 = Fully awake and oriented or at pre-proc level 02:04 PM / % 5 = Fully awake and oriented or at pre-proc level 02:04 PM / % 4 = Oriented but drowsy 02:00 PM 139 / 83 78 96 % 26 02:05 PM 133 / 80 70 96 % 38 02:10 PM 138 / 83 73 96 % 21 02:15 PM 127 / 74 73 94 % 25 02:20 PM 127 / 83 77 93 % 31 02:25 PM 132 / 74 74 95 % 23 02:19 PM / % 4 = Oriented but drowsy 02:42 PM 114 / 73 76 91 % 20 5 = Fully awake and oriented or at pre-proc level 02:55 PM 106 / 60 69 93 % 22 5 = Fully awake and oriented or at pre-proc level 03:04 PM 103 / 63 78 94 % 20 5 = Fully awake and oriented or at pre-proc level 03:15 PM 93 / 65 79 94 % 18 5 = Fully awake and oriented or at pre-proc level 03:29 PM 113 / 60 79 94 % 18 5 = Fully awake and oriented or at pre-proc level 03:52 PM 117 / 68 79 93 % 20 5 = Fully awake and oriented or at pre-proc level 04:04 PM 110 / 66 84 93 % 22 5 = Fully awake and oriented or at pre-proc level Procedural Medications Time Medication Dose Units Method Given By 02:00 PM Oxygen 2 L/min nasal cannula Will Mcclain RN 02:00 PM Versed 2 mg Intravenous Will Mcclain RN 02:00 PM Fentanyl 50 mcg Intravenous Will Mcclain RN 02:11 PM Lidocaine 2% 18 ml Subcutaneous Nancy Alejandro MD, [facility] ASA Classification: CLASS II- Mild systemic disease (i.e. well-controlled diabetes, hypertension, asthma, cigarette smoking) Paul Score Preprocedure Postprocedure Activity 2- Moves 4 extremities sustained head lift Activity 2- Moves 4 extremities sustained head lift Circulation 2- SBP +/= 20 points of pre-anesthetic level Circulation 2- SBP +/= 20 points of pre-anesthetic level Consciousness 2- Awake and alert oriented x 3 Consciousness 2- Awake and alert oriented x 3 O2 Saturation 2- Able to maintain O2 satruation of 92% on room air O2 Saturation 2- Able to maintain O2 satruation of 92% on room air Respiratory 2- Able to deep breathe and cough well Respiratory 2- Able to deep breathe and cough well Total Score 10 Total Score 10 Contrast Agent: Isovue Diagnostic Contrast: 61 ml Total Contrast: 61 ml Fluoro Dose: 348 mGy Procedure Log Time Note Enter By 01:56 PM CathStat 01:59 PM Case Start 01:59 PM Vitals capture started with the following parameters, Patient=Adult, Interval=5 min, Initial Ibcsekgc=024 mmHg, Deflation Rate=5 mmHg, Cuff placed on Right Arm 02:00 PM Pt arrived to labor trainer 2 at 14:00 csmith 02:00 PM Esparza, Jay RN Position: Monitor Time in: 14:00 csmith 02:00 PM Will Mcclain RN Position: City Maintenance Manager Time in: 14:00 csmith 02:00 PM Jay Esparza RN Position: Monitor Time in: 14:00 csmith 02:00 PM Patient charges- Angio tray pack, Navilyst 3mm J, Pulse Oximetry and ACIST tubing and transducer csmith 02:00 PM Hair removed from procedure site in procedure lab using clippers. Bilateral groin prepped with Chloraprep by Yecenia Cortes (R), safety strap applied then patient was draped. Skin intact. csmith 02:00 PM Physician arrived 14:00 csmith 02:00 PM ASA Class CLASS II- Mild systemic disease (i.e. well-controlled diabetes, hypertension, asthma, cigarette smoking) csmith 02:00 PM Meet and greet completed csmith 02:00 PM Sign in performed according to hospital policy. csmith 02:00 PM Procedure start 14:00 csmith 02:00 PM HR=78 bpm, KSPS=400/83 mmhg, SpO2=96.0 %, Resp=26 B/min, Comment=sr 02:00 PM Time: 14:00 Oxygen on at 2 L/min per nasal cannula by Will Mcclain RN csmith 02:00 PM Time: 14:00 Versed 2 mg Intravenous Given by Will Mcclain RN csmith 02:00 PM Time: 14:00 Fentanyl 50 mcg Intravenous Given by Will Mcclain RN csmith 02:02 PM Recorded ECG: HR=77 Condition=Condition 1 02:04 PM Time: 14:04 Patient comfortable and pain free: Yes csmith 02:04 PM Time: 14:04LOC: 5 = Fully awake and oriented or at pre-proc level csmith 02:05 PM HR=70 bpm, DOMB=614/80 mmhg, SpO2=96.0 %, Resp=38 B/min, Comment=sr 02:08 PM Time out performed according to hospital policy csmith 02:09 PM Pressure channel 3 zeroed. 02:10 PM HR=73 bpm, OJXT=204/83 mmhg, SpO2=96.0 %, Resp=21 B/min, Comment=sr 02:12 PM Time: 14:11 18 ml Lidocaine 2% to right groin Subcutaneous Given by Nancy Alejandro MD, [facility] csmith 02:12 PM Access obtained by percutaneous puncture. 5Fr 10cm Terumo [place] sheath placed in right Femoral artery. [id number] csmith 02:14 PM 5Fr FL 4 catheter inserted over the wire [facility] 02:14 PM 0.035 145cm Navilyst 3mmJ wire [id number] csmith 02:15 PM Recorded Pressure: Ao, HR=74, Condition=Condition 1 (Aorta) Ao 101/72/85 02:15 PM HR=73 bpm, IPBN=864/74 mmhg, SpO2=94.0 %, Resp=25 B/min, Comment=sr 02:15 PM LCA angiography performed in multiple views. csmith 02:17 PM Catheter removed csmith 02:17 PM 5Fr FR 4 catheter inserted over the wire [facility] 02:18 PM Recorded Pressure: Ao, HR=79, Condition=Condition 1 (Aorta) Ao 109/80/95 02:18 PM RCA angiography performed in [place]. csmith 02:19 PM [facility]ter [facility] 02:19 PM Time: 14:04 Patient comfortable and pain free: Yes csmith 02:19 PM Time: 14:04LOC: 4 = Oriented but drowsy csmith 02:20 PM HR=77 bpm, YXYV=187/83 mmhg, SpO2=93.0 %, Resp=31 B/min, Comment=sr 02:20 PM Pressure channel 3 zero failed. 02:20 PM Pressure channel 3 zeroed. 02:20 PM Recorded Pressure: LV, HR=79, Condition=Condition 1 (Left Ventricle) LV 92/31/32 02:21 PM Recorded Pressure: LV, Ao, HR=78, Condition=Condition 1 (Left Ventricle) LV 91/39/42, (Aorta) Ao 92/67/79 02:22 PM 5Fr Pigtail catheter inserted over the wire [facility] csmith 02:22 PM Catheter selectively placed in left ventricle csmith 02:22 PM Bolus angiogram of left Ventricle complete: 8 ml/sec for a total of 24 mls csmith 02:22 PM Catheter removed csmith 02:22 PM Wire removed csmith 02:24 PM Bolus angiogram of right Femoral complete: 4 ml/sec for a total of 7 mls csmith 02:25 PM HR=74 bpm, WKHJ=322/74 mmhg, SpO2=95.0 %, Resp=23 B/min, Comment=sr 02:27 PM Procedure completed at 14:27 csmith 02:29 PM Sign out completed: Radiation Dose 348 mGy Fluoro Time: 1.8 Isovue 370 - 200ml contrast 61 ml given by Nancy Alejandro MD, [facility]. Complications: NoneCardiac Rehab Consult needed: NoConfirmed administered medications: Yes csmith 02:29 PM Isovue 370 - 200ml,1 Bottle(s) used. csmith 02:29 PM Arterial sheath pulled, Mynx closure device used and was Successful [id number] S/N. csmith 02:30 PM Post ECG NSR csmith 02:30 PM Post Blood Pressure 132/74 csmith 02:30 PM 14:30 Post Pulses Bilateral DP 1+ csmith 02:30 PM Information taught Cardiac Cath and Mynx csmith 02:30 PM Education needs Responsibilities of Patient in Care csmith 02:30 PM Learning barriers :None csmith 02:30 PM Education Methods Verbal csmith 02:30 PM Education evaluation Needs further instruction csmith 02:31 PM Site status No bleeding/hematoma - Rt Groin as reported by Yecenia Cortes RT (R) at 14:30 csmith 02:31 PM Plavix, Effient or Brilinta given No csmith 02:31 PM Family placed in consult room. csmith 02:34 PM Time: 14:19LOC: 4 = Oriented but drowsy csmith 02:34 PM Time: 14:19 Patient comfortable and pain free: Yes csmith 02:36 PM Lesion found in Proximal LAD. Pre Stenosis: 99 Pre JOSUE Flow: 1: Slow Penetration without Perfusion csmith 02:36 PM Lesion found in Proximal Circumflex. Pre Stenosis: 30 Pre JOSUE Flow: 3: Complete and Brisk Flow/Perfusion csmith 02:36 PM Lesion found in Mid Circumflex. Pre Stenosis: 30 Pre JOSUE Flow: 3: Complete and Brisk Flow/Perfusion csmith 02:36 PM Lesion found in 1st Marginal. Pre Stenosis: 100 Pre JOSUE Flow: 0: No Flow/No perfusion csmith 02:36 PM Lesion found in Ramus. Pre Stenosis: 99 Pre JOSUE Flow: csmith 02:43 PM Pt resting comfortably, no complaints of pain. Has been instructed to hold pressure on groin if coughing. [email or web address] 03:53 PM Pt talking with Dr John banda 04:05 PM Pt resting comfortably, no complaints of pain. solo Complications Complication None Hemodynamics Pressures Site Systolic/A Wave Diastolic/V Wave Mean AO 101 72 85 AO 109 80 95 LV 92 31 32 LV 91 39 42 AO 92 67 79 Post Procedure Information Blood Pressure: 132/74 mmHg Rhythm: NSR Post procedural instructions were given Closure Device Time Device Success/Fail 03/26/2017 2:36:00 PM MynxGrip Successful Site Checks Time Location Status Staff Sheath In? Note 02:30 PM Rt Groin No bleeding/hematoma Yecenia Cortes RT (R) 02:42 PM Rt Groin No bleeding/ No Hematoma Yecenia Cortes RT (R) 02:54 PM Rt Groin No bleeding/ No Hematoma Nuzhat Vazquez RT 03:03 PM Rt Groin No bleeding/ No Hematoma Nuzhat Vazquez RT 03:03 PM Rt Groin No bleeding/ No Hematoma 03:14 PM Rt Groin No bleeding/ No Hematoma Sena Montes RN 03:52 PM Rt Groin No bleeding/ No Hematoma Yecenia Cortes RT (R) 04:04 PM Rt Groin No bleeding/ No Hematoma Yecenia Cortes RT (R) Pulses Time Site Pre-Procedure Post-Procedure Note 03/26/2017 1:57:00 PM Bilateral DP 2+ 2:30:00 PM Bilateral DP 1+ 03/26/2017 2:54:00 PM Bilateral DP 1+ 03/26/2017 3:03:00 PM Bilateral DP 1+ 03/26/2017 3:15:00 PM Bilateral DP 1+ 03/26/2017 3:29:00 PM Bilateral DP 1+ Updated by Veronica Shahid, RT(R) on 03/30/2017 2:34:51 PM electronically signed on 03/30/2017 2:35:43 PM with status of Final
== END 2017-03-27 12:45 | disposition other institution (70) | DRG 280 ==
LOC: EMEROO 19:41 → 2NENU 21:33 → 2NNU 03-26 16:06
PROVIDERS: ADMIT Internal Medicine; ATTEND Internal Medicine Sleep Medicine

== ENCOUNTER 2017-10-27 00:02 | Observation (INO) ==
[2017-10-27] MEDS ORDERED: *HR* HYDROcodone/Acet 5/325 mg TABLET PO ONE (00:44)
[2017-10-27] MEDS ORDERED: 0.9 % Sodium Chloride 500 ML IVC ONE (00:45)
--- NOTE | 2017-10-27 00:46 | Emergency Department Note ---
Disposition Clinical Impression: Acute pancreatitis Qualifiers: Pancreatitis type: unspecified pancreatitis type Acute pancreatitis complication: unspecified Qualified Code(s): K85.90 - Acute pancreatitis without necrosis or infection, unspecified Abdominal pain Qualifiers: Abdominal location: unspecified location Qualified Code(s): R10.9 - Unspecified abdominal pain Disposition: Admitted As Inpatient Condition: Fair Referrals: Zackary Hale MD [Primary Care Provider] - Forms: ED Satisfaction Letter, Work/School Release Time of Disposition: 03:48 General Adult HPI - General Chief complaint: ED Abdominal Pain Stated complaint: weakness Time Seen by Provider: 10/27/17 00:18 Source: patient, EMS Mode of arrival: ambulatory Limitations: no limitations Nursing Notes Reviewed: Yes Vital Signs Reviewed: Yes - History of Present Illness HPI Narrative: 62-year-old male with a history of COPD, CAD, diabetes presents for evaluation of weakness. Patient states he has been having weakness as well as abdominal pain for the past couple weeks. Abdominal pain is primarily lower abdomen. Patient states he has had hernia repair in 2004. Patient states he does not want any more hernia repairs or surgeries. Patient states he has been feeling nauseous without any vomiting. Denies any change in bowels or bladder. Patient urinating okay. Patient does note some shortness of breath. Patient denies any fevers or cough. Patient states that he does have nursing assistance at home and intermittently uses oxygen. Pain Scale: 0 - Related Data Home Medications Medication Instructions Recorded Confirmed Albuterol Sulfate [Albuterol 2 puff IH Q4HR PRN 05/17/15 03/25/17 Inhaler] Amlodipine [Norvasc] 5 mg PO DAILY 05/17/15 03/25/17 Atorvastatin Calcium [Lipitor] 80 mg PO HS 05/17/15 03/25/17 Cholestyramine 4 gm PO BIDAC 05/17/15 03/25/17 Ezetimibe [Zetia] 10 mg PO DAILY 05/17/15 03/25/17 Lisinopril [Zestril] 20 mg PO DAILY 05/17/15 03/25/17 Metformin HCl [Glucophage] 1,000 mg PO BID 05/17/15 03/25/17 Pioglitazone [Actos] 45 mg PO 0800 05/17/15 03/25/17 Tiotropium [Spiriva] 18 mcg IH 0700 05/17/15 03/25/17 Perphenazine [Trilafon] 8 mg PO DAILY 09/28/15 03/25/17 Fluticasone Propionate [Flovent 1 puff IH DAILY 03/25/17 03/25/17 Hfa] SitaGLIPtin [Januvia] 100 mg PO DAILY 03/25/17 03/25/17 glipiZIDE [Glipizide] 10 mg PO BID 03/25/17 03/25/17 Previous Rx's Medication Instructions Recorded Azithromycin [Azithromycin 6-Tab 250 mg PO PER PKG DI #6 tab 07/02/17 Pack] predniSONE [PredniSONE] 60 mg PO DAILY #15 tablet 08/14/17 Allergies Allergy/AdvReac Type Severity Reaction Status Date / Time loxapine [From Loxitane] Allergy See Verified 10/27/17 00:11 Comments betamethasone AdvReac Hives Verified 10/27/17 00:11 [From Lotrisone] clotrimazole [From Lotrisone] AdvReac Hives Verified 10/27/17 00:11 Sulfa (Sulfonamide AdvReac Hives Verified 10/27/17 00:11 Antibiotics) All systems ED: reviewed and negative except as stated. Constitutional: Denies: fever, chills Cardiovascular: Denies: chest pain Respiratory: Reports: cough, dyspnea Gastrointestinal: Reports: abdominal pain, nausea. Denies: vomiting, diarrhea, constipation Past Medical History - Past Medical History Source: patient Medical history: Reports: cancer, COPD, coronary artery disease, diabetes, myocardial infarction Surgical history: Reports: herniorrhaphy, other Psychiatric history: Reports: no psych history - Social History Smoking Status: Current some day smoker Smokeless Tobacco Status: No Alcohol use: Reports: none Drug use: Reports: none Physical Exam - General Limitations: no limitations General appearance: alert, in no apparent distress - Head Head exam: atraumatic, normocephalic, normal inspection - Eye Eye exam: Present: normal appearance, PERRL, EOMI - ENT ENT exam: normal exam, normal oropharynx, mucous membranes moist - Neck Neck exam: Present: normal inspection - Chest Chest inspection: Present: normal inspection, symmetric chest wall rise - Respiratory Respiratory exam: Present: normal lung sounds bilaterally. Absent: respiratory distress - Cardiovascular Cardiovascular exam: Present: regular rate, normal rhythm - Abdominal Exam Abdominal exam: Present: soft, Non-Tender, scar. Absent: distention, guarding, rebound - Extremities Exam Extremities exam: Present: normal inspection. Absent: pedal edema - Neurological Exam Neurological exam: Present: alert, oriented X3, CN II-XII intact - Skin Skin exam: Present: warm, dry, intact, normal color Course Course Narrative: Patient will get CT imaging of the chest abdomen and pelvis. Patient also get basic labs. Disposition pending. - Reevaluation(s) Reevaluation #1: Patient seen and examined. Patient sitting up in the chair. Patient's pain appears controlled. Patient was updated on likely pancreatitis. Patient denies history of call use. Says he still believes he has his gallbladder. Awaiting CT imaging. Time: 02:14 Reevaluation #2: Patient seen and examined. Patient appears resting comfortably. Patient denies any need for pain medication at this time. Time: 03:47 Vital Signs Temperature 98.0 F 10/27/17 00:11 Pulse Rate 97 10/27/17 00:11 Respiratory Rate 20 10/27/17 00:11 Blood Pressure 132/81 10/27/17 00:11 O2 Sat by Pulse Oximetry 92 10/27/17 00:11 Temperature 98.0 F 10/27/17 00:11 Pulse Rate 74 10/27/17 02:30 Respiratory Rate 16 10/27/17 02:30 Blood Pressure 105/69 10/27/17 02:30 O2 Sat by Pulse Oximetry 94 10/27/17 02:30 Oxygen Delivery Oxygen Delivery Room Air Medical Decision Making - [facility] Narrative Medical decision making narrative: Patient presents with concerns of generalized weakness as well as abdominal pain. Patient noted abdominal pain primarily in the lower abdomen or the past couple weeks. Patient prior hernias. Patient denies history of alcohol use. Patient states he still has his gallbladder. Patient was noted have a mild elevation in his lipase with imaging confirmation of pancreatitis. Patient also had CT of the chest which does not reveal any acute pulmonary embolism. Noted to be cardiomegaly. Patient's troponin was also noted to be mildly elevated at the patient denies any specific chest pain. Patient was given an aspirin. Patient symptoms like this with pancreatitis. Patient will need further evaluation with gallbladder ultrasound as well as symptom and treatment with antiemetics pain control and IV fluids. Disposition admission. - Lab Data Lab results reviewed: Yes I reviewed the patient's lab results. Result diagrams: 10/27/17 00:42 10/27/17 00:42 Lab Results 10/27/17 10/27/17 10/27/17 Range/Units 00:42 00:42 01:07 WBC 11.0 (4.3-11.1) K/mcL RBC 4.96 (4.19-5.50) M/mcL Hgb 15.2 (12.9-16.9) g/dL Hct 45.3 (37.5-50.1) % MCV 91.3 (83.0-100.0) fL MCH 30.6 (28.0-33.3) pg MCHC 33.6 (31.6-35.5) g/dL RDW 13.5 (11.5-14.5) % Plt Count 211 (140-400) K/mcL MPV 10.2 (9.4-12.4) fL Immature Gran % 0.5 (0-4) % Seg Neutrophils % 71.7 % Lymphocytes % 15.5 % Monocytes % 9.5 % Eosinophils % 2.3 % Basophils % 0.5 % Neutrophils # 7.9 (1.6-8.9) K/mcL Lymphocytes # 1.7 (0.6-4.6) K/mcL Monocytes # 1.0 (0.0-1.3) K/mcL Eosinophils # 0.3 (0.0-0.6) K/mcL Basophils # 0.1 (0.0-0.2) K/mcL Sodium 131 L (136-145) mEq/L Potassium 4.4 (3.5-5.1) mEq/L Chloride 98 (98-107) mEq/L Carbon Dioxide 28 (23-29) mEq/L BUN 12 (8-23) mg/dL Creatinine 0.80 (0.70-1.30) mg/dL Est GFR ( Amer) > 60 (> 60) Est GFR (Non-Af Amer) > 60 (> 60) BUN/Creatinine Ratio 15 (6-26) Glucose 230 H (70-105) mg/dL Calculated Osmolality 279 L (280-300) Lactic Acid 0.8 (0.5-2.2) mmol/L Calcium 9.1 (8.6-10.3) mg/dL Total Bilirubin 0.7 (0.3-1.0) mg/dL Direct Bilirubin 0.3 H (0.0-0.2) mg/dL Indirect Bilirubin 0.4 (0.0-1.2) mg/dL AST 11 L (13-39) Units/L ALT 8 (7-52) Units/L Alkaline Phosphatase 73 (34-104) Units/L Troponin I 0.05 H* (< 0.04) ng/mL Serum Total Protein 6.9 (6.4-8.9) g/dL Albumin 4.1 (3.5-5.7) g/dL Globulin 2.8 (2.4-3.5) g/dL Albumin/Globulin Ratio 1.5 (1.1-2.2) Triglycerides 100 (< 150) mg/dL Cholesterol 143 (< 200) mg/dL LDL Cholesterol, Calc 88 (0-99) mg/dL VLDL Cholesterol, Calc 20 (< 31) mg/dL HDL Cholesterol 35 L (40-59) mg/dL Cholesterol/HDL Ratio 4.1 (0-4.9) Lipase 338 H (11-82) Units/L Urine Color (Yellow) Urine Clarity (Clear) Urine pH (5.0-8.0) pH Units Ur Specific [place] (1.010-1.025) Urine Protein (Neg-Trace) mg/dL Urine Glucose (UA) (Normal) mg/dL Urine Ketones (Negative) mg/dL Urine Blood (Negative) Urine Nitrite (Negative) Urine Bilirubin (Negative) Urine Urobilinogen (Normal) mg/dL Ur Leukocyte Esterase (Negative) Ur Culture Indicated? (NO) 10/27/17 Range/Units 01:10 WBC (4.3-11.1) K/mcL RBC (4.19-5.50) M/mcL Hgb (12.9-16.9) g/dL Hct (37.5-50.1) % MCV (83.0-100.0) fL MCH (28.0-33.3) pg MCHC (31.6-35.5) g/dL RDW (11.5-14.5) % Plt Count (140-400) K/mcL MPV (9.4-12.4) fL Immature Gran % (0-4) % Seg Neutrophils % % Lymphocytes % % Monocytes % % Eosinophils % % Basophils % % Neutrophils # (1.6-8.9) K/mcL Lymphocytes # (0.6-4.6) K/mcL Monocytes # (0.0-1.3) K/mcL Eosinophils # (0.0-0.6) K/mcL Basophils # (0.0-0.2) K/mcL Sodium (136-145) mEq/L Potassium (3.5-5.1) mEq/L Chloride (98-107) mEq/L Carbon Dioxide (23-29) mEq/L BUN (8-23) mg/dL Creatinine (0.70-1.30) mg/dL Est GFR ( Amer) (> 60) Est GFR (Non-Af Amer) (> 60) BUN/Creatinine Ratio (6-26) Glucose (70-105) mg/dL Calculated Osmolality (280-300) Lactic Acid (0.5-2.2) mmol/L Calcium (8.6-10.3) mg/dL Total Bilirubin (0.3-1.0) mg/dL Direct Bilirubin (0.0-0.2) mg/dL Indirect Bilirubin (0.0-1.2) mg/dL AST (13-39) Units/L ALT (7-52) Units/L Alkaline Phosphatase (34-104) Units/L Troponin I (< 0.04) ng/mL Serum Total Protein (6.4-8.9) g/dL Albumin (3.5-5.7) g/dL Globulin (2.4-3.5) g/dL Albumin/Globulin Ratio (1.1-2.2) Triglycerides (< 150) mg/dL Cholesterol (< 200) mg/dL LDL Cholesterol, Calc (0-99) mg/dL VLDL Cholesterol, Calc (< 31) mg/dL HDL Cholesterol (40-59) mg/dL Cholesterol/HDL Ratio (0-4.9) Lipase (11-82) Units/L Urine Color Yellow (Yellow) Urine Clarity Clear (Clear) Urine pH 6.0 (5.0-8.0) pH Units Ur Specific [place] 1.012 (1.010-1.025) Urine Protein Negative (Neg-Trace) mg/dL Urine Glucose (UA) Normal (Normal) mg/dL Urine Ketones Negative (Negative) mg/dL Urine Blood Negative (Negative) Urine Nitrite Negative (Negative) Urine Bilirubin Negative (Negative) Urine Urobilinogen Normal (Normal) mg/dL Ur Leukocyte Esterase Negative (Negative) Ur Culture Indicated? NO (NO) - Radiology Data Radiology results reviewed: Yes I reviewed the patient's radiology results. Chest CTA 10/27/17 00:43 IMPRESSION: 1. No evidence of pulmonary embolism or acute pulmonary abnormality. 2. Findings suggestive pancreatitis. No loculated fluid collection. 3. Cardiomegaly. D/ / Ajay Alvarado MD / Ajay Alvarado MD Interpreting Provider: Ajay Alvarado MD Abdomen/Pelvis CT 10/27/17 00:47 IMPRESSION: 1. No evidence of pulmonary embolism or acute pulmonary abnormality. 2. Findings suggestive pancreatitis. No loculated fluid collection. 3. Cardiomegaly. D/ / Ajay Alvarado MD / Ajay Alvarado MD Interpreting Provider: Ajay Alvarado MD - EKG Data EKG #1 EKG attestation: Yes I reviewed and interpreted this EKG. EKG shows normal: sinus rhythm Rate: normal Rhythm: NSR [place]/QRS: normal Ectopy: PAC Interpretation: no acute changes, nonspecific ST-T wave changes S.B.A.R. - S.B.A.RMae Situation: Demographics Background: Presenting Complaint Assessment: Vital Signs Recommendation: Barrier(s) to disposition, Recommendation based on pending studies, treatments, or consults S.B.A.RMae Report Given to: Dr. Maldonado S.B.ANaz Repor Time: 04:02 Attestation Statement - Attestation Attestation: I examined this patient and my medical decision-making was reviewed with the Resident Physician. I agree with the documented findings, disposition and treatment plan as described except to the extent set forth below. Findings consistent with pancreatitis. IV fluids, will admit for further workup and US of gallbladder. LFTs and bilirubin are normal. White blood cell count is not elevated. Patient has not peritoneal abdominal examination.
[2017-10-27] MEDS ORDERED: *HR* FentaNYL (PF) 100 MCG/2 ML VIAL IVP ONE (00:48)
[2017-10-27 01:19] LABS: Basophils # 0.1 K/mcL (0.0-0.2); Basophils % 0.5 %; Eosinophils # 0.3 K/mcL (0.0-0.6); Eosinophils % 2.3 %; Hematocrit 45.3 % (37.5-50.1); Hemoglobin 15.2 g/dL (12.9-16.9); Immature Granulocytes % 0.5 % (0-4); Lymphocytes # 1.7 K/mcL (0.6-4.6); Lymphocytes % 15.5 %; Mean Corpuscular HGB Conc 33.6 g/dL (31.6-35.5); Mean Corpuscular Hemoglobin 30.6 pg (28.0-33.3); Mean Corpuscular Volume 91.3 fL (83.0-100.0); Mean Platelet Volume 10.2 fL (9.4-12.4); Monocytes % 9.5 %; Neutrophils # 7.9 K/mcL (1.6-8.9); Platelet Count 211 K/mcL (140-400); Red Blood Count 4.96 M/mcL (4.19-5.50); Red Cell Distribution Width 13.5 % (11.5-14.5); Segmented Neutrophils % 71.7 %
[2017-10-27 01:24] LABS: Bilirubin,Urine Negative (Negative); Blood,Urine Negative (Negative); Clarity,Urine Clear (Clear); Color,Urine Yellow (Yellow); Glucose,Urine (UA) Normal (Normal); Ketones,Urine Negative (Negative); Leukocyte Esterase,Urine Negative (Negative); Nitrite,Urine Negative (Negative); Protein,Urine Negative (Neg-Trace); Specific Gravity,Urine 1.012 (1.010-1.025); Urobilinogen,Urine Normal (Normal)
[2017-10-27 01:39] LABS: Alanine Aminotransferase 8 Units/L (7-52); Albumin 4.1 g/dL (3.5-5.7); Albumin/Globulin Ratio 1.5 (1.1-2.2); Alkaline Phosphatase 73 Units/L (34-104); Aspartate Amino Transferase 11 Units/L (13-39); BUN/Creatinine Ratio 15 (6-26); Bilirubin,Direct 0.3 mg/dL (0.0-0.2); Bilirubin,Indirect 0.4 mg/dL (0.0-1.2); Bilirubin,Total 0.7 mg/dL (0.3-1.0); Blood Urea Nitrogen 12 mg/dL (8-23); Calcium 9.1 mg/dL (8.6-10.3); Carbon Dioxide 28 mEq/L (23-29); Chloride 98 mEq/L (98-107); Globulin 2.8 g/dL (2.4-3.5); Glucose 230 mg/dL (70-105); Lipase 338 Units/L (11-82); Osmolality,Calculated 279 (280-300); Potassium 4.4 mEq/L (3.5-5.1); Sodium 131 mEq/L (136-145); Total Protein 6.9 g/dL (6.4-8.9); eGFR For African Americans > 60 (> 60); eGFR For Non-African Americans > 60 (> 60)
[2017-10-27 01:48] LABS: Troponin I 0.05 ng/mL (< 0.04)
[2017-10-27] MEDS ORDERED: Aspirin 81 MG TAB.CHEW PO ONE (02:07)
[2017-10-27 04:00] LABS: Chol/HDL Ratio 4.1 (0-4.9); Cholesterol 143 mg/dL (< 200); HDL Cholesterol 35 mg/dL (40-59); LDL Cholesterol,Calculated 88 mg/dL (0-99); Triglycerides 100 mg/dL (< 150)
[2017-10-27] MEDS ORDERED: *HR* HYDROcodone/Acet 5/325 mg TABLET PO PRN (04:01)
[2017-10-27] MEDS ORDERED: Naloxone 0.4 MG/ML INJ IVP PRN (04:01)
[2017-10-27] MEDS ORDERED: *HR* OxyCODONE Immed Rel 5 MG TABLET PO PRN (04:01)
[2017-10-27] MEDS ORDERED: Acetaminophen 325 MG TABLET PO PRN (04:01)
--- NOTE | 2017-10-27 04:58 | Internal Med History&Physical ---
Date of Encounter: 10/27/17 Time of Encounter: 04:30 Internal Medicine - H&P: HPI Chief complaint: Abdominal pain Admitted From: Emergency Dept Plans for Post Hospital Care: Home History of present illness: Mr. Emmanuel is a 62 year old male with known past medical history of COPD, CAD , and diabetes presented to ER with lower abdomen pain and generalized weakness. Patient states he has been having weakness as well as abdominal pain for the past couple weeks. He does have nausea, but denied any active vomiting. Abdominal pain is primarily lower abdomen. Patient states he has had hernia repair in 2004. He denied any constipation / diarrhea. Denied any CP Past Med Surg Social Fam HX - Past Medical History Medical history: cancer, COPD, coronary artery disease, diabetes, myocardial infarction Psychiatric history: no psych history - Past Surgical History Surgical History: herniorrhaphy, other - Social History Smoking Status: Current some day smoker Smokeless Tobacco Status: No Alcohol use: none Drug use: none - Family History Father Adopted: No Living Status: Hx Family Cardiac Disorders: Yes Mother Living Status: Hx Family Cardiac Disorders: No Hx Family Respiratory Disorders: No Hx Family Cancer: Yes Internal Medicine - H&P: Meds Albuterol Sulfate [Albuterol Inhaler] 2 puff IH Q4HR PRN 05/17/15 [History] Amlodipine [Norvasc] 5 mg PO DAILY 05/17/15 [History] Atorvastatin Calcium [Lipitor] 80 mg PO HS 05/17/15 [History] Cholestyramine 4 gm PO BIDAC 05/17/15 [History] Ezetimibe [Zetia] 10 mg PO DAILY 05/17/15 [History] Lisinopril [Zestril] 20 mg PO DAILY 05/17/15 [History] Metformin HCl [Glucophage] 1,000 mg PO BID 05/17/15 [History] Pioglitazone [Actos] 45 mg PO 0800 05/17/15 [History] Tiotropium [Spiriva] 18 mcg IH 0700 05/17/15 [History] Perphenazine [Trilafon] 8 mg PO DAILY 09/28/15 [History] Fluticasone Propionate [Flovent Hfa] 1 puff IH DAILY 03/25/17 [History] SitaGLIPtin [Januvia] 100 mg PO DAILY 03/25/17 [History] glipiZIDE [Glipizide] 10 mg PO BID 03/25/17 [History] Azithromycin [Azithromycin 6-Tab Pack] 250 mg PO PER PKG DI #6 tab 07/02/17 [Rx] predniSONE [PredniSONE] 60 mg PO DAILY #15 tablet 08/14/17 [Rx] 3 Allergy/AdvReac Type Severity Reaction Status Date / Time loxapine [From Loxitane] Allergy See Verified 10/27/17 00:11 Comments betamethasone AdvReac Hives Verified 10/27/17 00:11 [From Lotrisone] clotrimazole [From Lotrisone] AdvReac Hives Verified 10/27/17 00:11 Sulfa (Sulfonamide AdvReac Hives Verified 10/27/17 00:11 Antibiotics) All Systems PM: A 10-system review of systems was performed and is negative for pertinent findings except as documented above in the HPI. Review of systems: All the systems are reviewed everything is benign except the systems and symptoms I mentioned in the history of present illness - Constitutional Vitals: Temp Pulse Resp BP Pulse Ox 98.0 F 74 18 93/61 94 10/27/17 00:11 10/27/17 02:30 10/27/17 04:51 10/27/17 04:51 10/27/17 02:30 General appearance: Present: cooperative, A&O X 3, answers questions appropriately - Head Head exam: Present: atraumatic, normal inspection - Neck Neck exam general surgery: Present: supple - Respiratory Respiratory exam: Present: decreased breath sounds. Absent: rales, respiratory distress, rhonchi, wheezes - Cardiovascular Cardiovascular exam: Present: RRR, +S1, +S2. Absent: tachycardia - GI/Abdominal GI/Abdominal exam: Present: normal bowel sounds, soft, tenderness (mild discomfort in lower abdomen region where he had hernia repair before. ). Absent : rebound, rigid - Extremities Exam Extremities exam: Absent: calf tenderness, pedal edema, tenderness - Back Exam Back exam: Absent: CVA tenderness (L), CVA tenderness (R) - Neurological Exam Neurological exam: Present: alert, oriented X3 - Psychiatric Psychiatric exam: Present: normal affect, normal mood - Skin Skin exam: Absent: rash Internal Med - H&P Results - Labs CBC & Chem 7: 10/27/17 00:42 10/27/17 00:42 - Assessment and plan (1) Acute pancreatitis Current Visit: Yes Status: Acute Assessment and plan: place the pt into Med Surg for observation Reviewed CT of Abd showed acute pancreatitis His Lipase level elevated @ 338 No cholelithiasis noticed on Ct of Abd no clear etiology for pancreatitis will check FLP now Clear liquid diet Analgesics PRN trend on Lipase IV hydration will get U/S of RUQ Qualifiers: Pancreatitis type: unspecified pancreatitis type Acute pancreatitis complication: unspecified Qualified Code(s): K85.90 - Acute pancreatitis without necrosis or infection, unspecified (2) Abdominal pain Current Visit: Yes Status: Acute Assessment and plan: no signs of incarcerated hernia could be msuculoskeletal cont close monitoring Qualifiers: Abdominal location: lower abdomen, unspecified Qualified Code(s): R10.30 - Lower abdominal pain, unspecified (3) HTN (hypertension) Current Visit: No Status: Acute Assessment and plan: resumed all home meds Qualifiers: Hypertension type: essential hypertension Qualified Code(s): I10 - Essential (primary) hypertension (4) COPD (chronic obstructive pulmonary disease) Current Visit: No Status: Chronic Assessment and plan: stable not in exacerbation resumed all home regimen 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 - Other emphysema (5) Diabetes Current Visit: No Status: Chronic Assessment and plan: Held PO meds on ISS Qualifiers: Diabetes mellitus type: type 2 Diabetes mellitus lobsterman insulin use: without lobsterman use Diabetes mellitus complication status: without complication Qualified Code(s): E11.9 - Type 2 diabetes mellitus without complications - Time Spent With Patient Total time spent is greater than 50% in coordination of care (as documented) at patient's floor/unit and/or counseling patient:
[2017-10-27] MEDS: 0.9 % Sodium Chloride 1,000 ML IVC SCH ×2 (06:01→20:22)
--- NOTE | 2017-10-27 12:40 | Internal Med Progress Note ---
Date of Encounter: 10/27/17 Time of Encounter: 12:40 - Assessment and plan (1) COPD (chronic obstructive pulmonary disease) Current Visit: Yes Status: Chronic Assessment and plan: stable not in exacerbation continue current management 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 - Other emphysema (2) Diabetes Current Visit: Yes Status: Chronic Assessment and plan: Continue to hold po meds, resume insulin, correctional dose Qualifiers: Diabetes mellitus type: type 2 Diabetes mellitus jail insulin use: without jail use Diabetes mellitus complication status: without complication Qualified Code(s): E11.9 - Type 2 diabetes mellitus without complications (3) HTN (hypertension) Current Visit: Yes Status: Chronic Assessment and plan: continue home meds Qualifiers: Hypertension type: essential hypertension Qualified Code(s): I10 - Essential (primary) hypertension (4) Acute pancreatitis Current Visit: Yes Status: Suspected Assessment and plan: CT of Abd showed acute pancreatitis His Lipase level elevated @ 338 No cholelithiasis noticed on Ct of Abd no clear etiology for pancreatitis Lipid panel WNL RUQ USS WNL Patient is asymptomatic Advance diet, ambulate Qualifiers: Pancreatitis type: unspecified pancreatitis type Acute pancreatitis complication: unspecified Qualified Code(s): K85.90 - Acute pancreatitis without necrosis or infection, unspecified (5) Abdominal pain Current Visit: Yes Status: Acute Assessment and plan: no signs of incarcerated hernia could be msuculoskeletal cont close monitoring Qualifiers: Abdominal location: lower abdomen, unspecified Qualified Code(s): R10.30 - Lower abdominal pain, unspecified - Time Spent With Patient Total time spent is greater than 50% in coordination of care (as documented) at patient's floor/unit and/or counseling patient: - Subjective Interval history: Seen and evaluated at the bedside He presented with RL groin region pain, he denies epigastric or upper abdominal pain. He has had hernia repairs in the past and didnt want any more. Work up showed pancreatitis on CT scan, Lipid panel negative, no gall stones on USS, no cholecystitis Patient is completely asymptomatic at this time of review - Constitutional Vitals: Temp Pulse Resp BP Pulse Ox 98 F 85 16 112/78 95 10/27/17 11:40 10/27/17 11:40 10/27/17 11:40 10/27/17 11:40 10/27/17 11:40 General appearance: Present: cooperative, A&O X 3, pleasant, obese, answers questions appropriately - Head Head exam: Present: atraumatic, normocephalic - Eye Eye exam: Present: PERRL, conjuntiva pink, sclera anicteric Pupils: Present: PERRL - Neck Neck exam general surgery: Present: supple, trachea midline. Absent: lymphadenopathy - Respiratory Respiratory exam: Present: CTAB. Absent: accessory muscle use, rales, rhonchi, wheezes - Cardiovascular Cardiovascular exam: Present: RRR, +S1, +S2. Absent: diastolic murmur, gallop, rubs, systolic murmur - GI/Abdominal GI/Abdominal exam: Present: normal bowel sounds, soft, no peritoneal signs. Absent: distended, tenderness - Extremities Exam Extremities exam: Present: warm, radial pulses palpable and symmetrical. Absent : calf tenderness, cyanotic, pedal edema - Neurological Exam Neurological exam: Present: alert, CN II-XII intact, oriented X3, no focal deficits. Absent: pronater drift, facial droop, speech deficit - Skin Skin exam: Present: dry, intact Internal Medicine: Result - Labs CBC & Chem 7: 10/27/17 00:42 10/27/17 00:42 - Impressions Impressions Abdomen Ultrasound 10/27/17 08:00 IMPRESSION: Unremarkable right upper quadrant ultrasound. D/ / Ramiro Chaves MD / Ramiro Chaves MD Interpreting Provider: Ramiro Chaves MD Consult Discharge Plan - Plan Referrals: [facility] [place],Zackary Barth MD [Primary Care Provider] -
[2017-10-27] MEDS ORDERED: Dextrose Gel 15 GM/37.5 ML TUBE PO PRN ×2 (14:06)
[2017-10-27] MEDS ORDERED: D5% in Water 1,000 ML IVC PRN (14:06)
[2017-10-27] MEDS ORDERED: *HR* Dextrose 50 % in Water (Syg) 50 ML SYRINGE IVP PRN (14:06)
[2017-10-27] MEDS: Insulin LISPRO 300 UNITS/3 ML VIAL SQ SCH (17:09)
[2017-10-27] MEDS: *HR* Heparin 5,000 UNIT/ML VIAL SQ SCH (18:47)
--- NOTE | 2017-10-27 20:00 | Electrocardiograph Report ---
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
[2017-10-27] MEDS ORDERED: Insulin LISPRO 300 UNITS/3 ML VIAL SQ SCH (21:00)
[2017-10-28] MEDS: *HR* Heparin 5,000 UNIT/ML VIAL SQ SCH (05:11)
[2017-10-28 06:11] LABS: Basophils % 0.4 %; Eosinophils # 0.3 K/mcL (0.0-0.6); Eosinophils % 3.2 %; Hematocrit 44.4 % (37.5-50.1); Hemoglobin 14.6 g/dL (12.9-16.9); Immature Granulocytes % 0.2 % (0-4); Lymphocytes # 1.5 K/mcL (0.6-4.6); Lymphocytes % 15.6 %; Mean Corpuscular HGB Conc 32.9 g/dL (31.6-35.5); Mean Corpuscular Hemoglobin 30.5 pg (28.0-33.3); Mean Corpuscular Volume 92.7 fL (83.0-100.0); Mean Platelet Volume 10.3 fL (9.4-12.4); Monocytes # 0.8 K/mcL (0.0-1.3); Monocytes % 8.5 %; Neutrophils # 6.9 K/mcL (1.6-8.9); Platelet Count 197 K/mcL (140-400); Red Blood Count 4.79 M/mcL (4.19-5.50); Red Cell Distribution Width 13.5 % (11.5-14.5); Segmented Neutrophils % 72.1 %
[2017-10-28 06:23] LABS: Alanine Aminotransferase 8 Units/L (7-52); Albumin 3.6 g/dL (3.5-5.7); Albumin/Globulin Ratio 1.3 (1.1-2.2); Alkaline Phosphatase 69 Units/L (34-104); Aspartate Amino Transferase 11 Units/L (13-39); BUN/Creatinine Ratio 13 (6-26); Bilirubin,Total 0.9 mg/dL (0.3-1.0); Blood Urea Nitrogen 8 mg/dL (8-23); Calcium 8.7 mg/dL (8.6-10.3); Carbon Dioxide 29 mEq/L (23-29); Chloride 105 mEq/L (98-107); Globulin 2.7 g/dL (2.4-3.5); Glucose 191 mg/dL (70-105); Lipase 175 Units/L (11-82); Magnesium 2.1 mg/dL (1.6-2.6); Osmolality,Calculated 285 (280-300); Potassium 4.5 mEq/L (3.5-5.1); Sodium 136 mEq/L (136-145); Total Protein 6.3 g/dL (6.4-8.9); eGFR For African Americans > 60 (> 60); eGFR For Non-African Americans > 60 (> 60)
[2017-10-28] MEDS ORDERED: Perphenazine 8 MG TABLET PO SCH (09:00)
[2017-10-28] MEDS: Insulin LISPRO 300 UNITS/3 ML VIAL SQ SCH (09:17)
[2017-10-28] MEDS ORDERED: Tiotropium 18 MCG inhalation IH SCH (10:00)
--- NOTE | 2017-10-28 10:31 | Discharge Summary ---
- NOTES TO OUTPATIENT PROVIDER Notes to Outpatient Provider: Admitted for L groin pain, negative work up, except slightly elevated lipase levels. Patient has been stable and is ready to be discharged home. No change in his medications. Date of Encounter: 10/28/17 Time of Encounter: 09:10 - Discharge Diagnosis (1) COPD (chronic obstructive pulmonary disease) Priority: Secondary Status: Chronic 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 - Other emphysema (2) Diabetes Priority: Secondary Status: Chronic Qualifiers: Diabetes mellitus type: type 2 Diabetes mellitus snf insulin use: without snf use Diabetes mellitus complication status: without complication Qualified Code(s): E11.9 - Type 2 diabetes mellitus without complications (3) HTN (hypertension) Priority: Secondary Status: Chronic Qualifiers: Hypertension type: essential hypertension Qualified Code(s): I10 - Essential (primary) hypertension (4) Acute pancreatitis Priority: Primary Status: Resolved Qualifiers: Pancreatitis type: unspecified pancreatitis type Acute pancreatitis complication: unspecified Qualified Code(s): K85.90 - Acute pancreatitis without necrosis or infection, unspecified (5) Abdominal pain Priority: Primary Status: Resolved Qualifiers: Abdominal location: lower abdomen, unspecified Qualified Code(s): R10.30 - Lower abdominal pain, unspecified (6) Obesity (BMI 35.0-39.9 without comorbidity) Priority: Secondary Status: Chronic Hospital course: Mr. Emmanuel is a 62 year old male with medical hx of COPD, coronary artery disease, diabetes, hypertension, and obesity. The patient presented to the ER with generalized weakness as well as right lower groin pain He has had hernia repairs in the past and didn't want any more. However, he had no signs or symptoms of incarcerated hernia. He did have nausea but denied any vomiting. No constipation or diarrhea, no chest pain. Work up showed pancreatitis on CT scan,No cholelithiasis noticed on Ct of Abd, Lipid panel negative, no gall stones on USS, no cholecystitis, admitting Lipase level elevated @ 338. Patient is completely asymptomatic at the time of review by the secondd ay after supportive care. His abdominal pain is resolved since admission. He is tolerating regular diet and denies epigastric or RUQ pain. He is ambulatory without assistance, denies any CP or SOB. His Troponin was midly elevated at 0.05, adynamic, no EKG changes-EKG was sinus rhythm with frequent PVCs ST segment changes. He has an appointment with his primary care doctor on 11/03/17, and is recommended to follow up with the same. 3 mins spent on tobacco cessation counseling. Discharge discussed with: patient, nurse, case management Time spent discussing smoking cessation with patient: 3 to 10 minutes - Time Spent with Patient Total time spent providing and/or coordinating discharge services: Less than 30 minutes - Discharge Medications Home Medications: Albuterol Sulfate [Albuterol Inhaler] 2 puff IH Q4HR PRN 05/17/15 [History] Atorvastatin Calcium [Lipitor] 80 mg PO HS 05/17/15 [History] Cholestyramine 4 gm PO BIDAC 05/17/15 [History] Ezetimibe [Zetia] 10 mg PO DAILY 05/17/15 [History] Metformin HCl [Glucophage] 1,000 mg PO BID 05/17/15 [History] Tiotropium [Spiriva] 18 mcg IH 0700 05/17/15 [History] Perphenazine [Trilafon] 8 mg PO DAILY 09/28/15 [History] glipiZIDE [Glipizide] 10 mg PO BID 03/25/17 [History] Clopidogrel [Plavix] 75 mg PO DAILY 10/27/17 [History] Furosemide [Lasix] 20 mg PO DAILY 10/27/17 [History] Lisinopril [Zestril] 2.5 mg PO DAILY 10/27/17 [History] Metoprolol Succinate [Toprol Xl] 25 mg PO DAILY 10/27/17 [History] amLODIPine [Norvasc] 5 mg PO DAILY 10/27/17 [History] Allergies/Adverse Reactions: 3 Allergy/AdvReac Type Severity Reaction Status Date / Time loxapine [From Loxitane] Allergy See Verified 10/27/17 10:42 Comments betamethasone AdvReac Hives Verified 10/27/17 10:42 [From Lotrisone] clotrimazole [From Lotrisone] AdvReac Hives Verified 10/27/17 10:42 Sulfa (Sulfonamide AdvReac Hives Verified 10/27/17 10:42 Antibiotics) Date of admission: 10/27/17 04:36 Primary care physician: Zackary Hale MD Consults: 10/27/17 08:19 Consult to Nurse Navigator [CONS] Routine Comment: CHF education Discharging clinician: Jad Mata Anticipated date of discharge: 10/28/17 - Constitutional Vitals: Temp Pulse Resp BP Pulse Ox 97.9 F 83 18 157/89 97 10/28/17 07:18 10/28/17 07:18 10/28/17 07:18 10/28/17 07:18 10/28/17 07:18 General appearance: Present: cooperative, A&O X 3, pleasant, obese, answers questions appropriately - Head Head exam: Present: atraumatic, normocephalic - Eye Eye exam: Present: PERRL, conjuntiva pink, sclera anicteric Pupils: Present: PERRL - Neck Neck exam general surgery: Present: supple, trachea midline. Absent: lymphadenopathy - Respiratory Respiratory exam: Present: CTAB. Absent: accessory muscle use, rales, rhonchi, wheezes - Cardiovascular Cardiovascular exam: Present: RRR, +S1, +S2. Absent: diastolic murmur, gallop, rubs, systolic murmur - GI/Abdominal GI/Abdominal exam: Present: normal bowel sounds, soft, no peritoneal signs. Absent: distended, tenderness - Extremities Exam Extremities exam: Present: warm, radial pulses palpable and symmetrical. Absent : calf tenderness, cyanotic, pedal edema - Neurological Exam Neurological exam: Present: alert, CN II-XII intact, oriented X3, no focal deficits. Absent: pronater drift, facial droop, speech deficit - Skin Skin exam: Present: dry, intact - Patient Status Disposition: Home Health Service Condition: Fair Functional capacity at discharge: independent ambulation Overall status at discharge: patient is back to baseline - Discharge Instructions Follow Up With: Zackary Hale MD [Primary Care Provider] - - Diet and Activity Activity: resume usual activities as tolerated Diet: diabetic diet, low fat, low cholesterol, low salt diet
--- NOTE | 2017-10-28 10:33 | Physician Discharge Referral ---
Home Health/Hosp Referral Info Transfer to: Home Health Attending Provider: Kolton Mata Provider in Charge Post Discharge: PCP - Diagnosis (1) COPD (chronic obstructive pulmonary disease) Priority: Secondary Status: Chronic (2) Diabetes Priority: Secondary Status: Chronic (3) HTN (hypertension) Priority: Secondary Status: Chronic (4) Acute pancreatitis Status: Resolved (5) Abdominal pain Priority: Primary Status: Resolved - Respiratory Orders Smoking Cessation: Smoking cessation has been advised. For more information, call the [place] Tobacco Quit Line at 2-350-DZHR-NOW. - Diet/Nutrition Diet/Nutrition Orders: Cardiac, No Concentrated Sweets - Activity Activity Orders: Up ad karthik - Services Needed Following services are medically necessary services: Home Health Aide - Transfer Medications Home Medications: Albuterol Sulfate [Albuterol Inhaler] 2 puff IH Q4HR PRN 05/17/15 [History] Atorvastatin Calcium [Lipitor] 80 mg PO HS 05/17/15 [History] Cholestyramine 4 gm PO BIDAC 05/17/15 [History] Ezetimibe [Zetia] 10 mg PO DAILY 05/17/15 [History] Metformin HCl [Glucophage] 1,000 mg PO BID 05/17/15 [History] Tiotropium [Spiriva] 18 mcg IH 0700 05/17/15 [History] Perphenazine [Trilafon] 8 mg PO DAILY 09/28/15 [History] glipiZIDE [Glipizide] 10 mg PO BID 03/25/17 [History] Clopidogrel [Plavix] 75 mg PO DAILY 10/27/17 [History] Furosemide [Lasix] 20 mg PO DAILY 10/27/17 [History] Lisinopril [Zestril] 2.5 mg PO DAILY 10/27/17 [History] Metoprolol Succinate [Toprol Xl] 25 mg PO DAILY 10/27/17 [History] amLODIPine [Norvasc] 5 mg PO DAILY 10/27/17 [History] Allergies/Adverse Reactions: 3 Allergy/AdvReac Type Severity Reaction Status Date / Time loxapine [From Loxitane] Allergy See Verified 10/27/17 10:42 Comments betamethasone AdvReac Hives Verified 10/27/17 10:42 [From Lotrisone] clotrimazole [From Lotrisone] AdvReac Hives Verified 10/27/17 10:42 Sulfa (Sulfonamide AdvReac Hives Verified 10/27/17 10:42 Antibiotics) Certification: Further, I certify that my clinical findings support that this patient is homebound (i.e. absences from home require considerable and taxing effort and are for medical reasons or moravian services or infrequently or short duration when for other reasons) because: Homebound Reason: Patient requires assistance of a person or device to safely leave home Attestation: My signature below is to certify that this patient is under my care and that I, or nurse practitioner, or a physician's occupational therapy assistant working with me, has a face-to -face encounter with this patient.
[2017-10-28 10:37] VITALS: BP 104/64
== END 2017-10-28 12:57 | disposition home health service (06) ==
LOC: 3ANU 00:02 → EMEROO 00:02 → 3ANU 04:52
PROVIDERS: ADMIT Family Medicine; ATTEND Internal Medicine

== ENCOUNTER 2017-10-30 12:42 | Observation (INO) ==
[2017-10-30] MEDS ORDERED: 0.9 % Sodium Chloride 1,000 ML IVC ONE (13:13)
[2017-10-30] MEDS ORDERED: Pantoprazole 40 MG VIAL IVP ONE (13:14)
[2017-10-30] MEDS ORDERED: Ondansetron 4 MG/2 ML VIAL IVP ONE (13:14)
[2017-10-30] MEDS ORDERED: *HR* FentaNYL (PF) 100 MCG/2 ML VIAL IVP ONE (13:14)
[2017-10-30 14:18] LABS: Basophils % 0.4 %; Eosinophils # 0.1 K/mcL (0.0-0.6); Eosinophils % 1.3 %; Hematocrit 44.4 % (37.5-50.1); Immature Granulocytes % 0.4 % (0-4); Lymphocytes # 0.8 K/mcL (0.6-4.6); Mean Corpuscular HGB Conc 33.8 g/dL (31.6-35.5); Mean Corpuscular Hemoglobin 30.9 pg (28.0-33.3); Mean Corpuscular Volume 91.5 fL (83.0-100.0); Mean Platelet Volume 10.8 fL (9.4-12.4); Monocytes # 0.8 K/mcL (0.0-1.3); Monocytes % 7.3 %; Neutrophils # 8.6 K/mcL (1.6-8.9); Platelet Count 211 K/mcL (140-400); Red Blood Count 4.85 M/mcL (4.19-5.50); Red Cell Distribution Width 13.3 % (11.5-14.5); Segmented Neutrophils % 82.6 %
[2017-10-30 14:26] LABS: Alanine Aminotransferase 11 Units/L (7-52); Albumin 3.8 g/dL (3.5-5.7); Albumin/Globulin Ratio 1.2 (1.1-2.2); Alkaline Phosphatase 77 Units/L (34-104); Aspartate Amino Transferase 11 Units/L (13-39); BUN/Creatinine Ratio 13 (6-26); Bilirubin,Direct 0.3 mg/dL (0.0-0.2); Bilirubin,Indirect 0.3 mg/dL (0.0-1.2); Bilirubin,Total 0.6 mg/dL (0.3-1.0); Blood Urea Nitrogen 9 mg/dL (8-23); Calcium 9.4 mg/dL (8.6-10.3); Carbon Dioxide 29 mEq/L (23-29); Chloride 96 mEq/L (98-107); Globulin 3.1 g/dL (2.4-3.5); Glucose 314 mg/dL (70-105); Lipase 399 Units/L (11-82); Osmolality,Calculated 289 (280-300); Potassium 3.9 mEq/L (3.5-5.1); Sodium 134 mEq/L (136-145); Total Protein 6.9 g/dL (6.4-8.9); eGFR For African Americans > 60 (> 60); eGFR For Non-African Americans > 60 (> 60)
[2017-10-30 14:32] LABS: Troponin I 0.04 ng/mL (< 0.04)
--- NOTE | 2017-10-30 15:10 | Emergency Department Note ---
Disposition Clinical Impression: Pancreatitis Qualifiers: Chronicity: acute Pancreatitis type: unspecified pancreatitis type Acute pancreatitis complication: unspecified Qualified Code(s): K85.90 - Acute pancreatitis without necrosis or infection, unspecified Disposition: Admitted As Inpatient Condition: Fair Referrals: Zackary Hale MD [Primary Care Provider] - Forms: ED Satisfaction Letter, Work/School Release Time of Disposition: 15:15 General Adult HPI - General Chief complaint: ED Abdominal Pain Stated complaint: abd pain-dx pancreatitis Time Seen by Provider: 10/30/17 12:58 Source: patient, EMS Mode of arrival: ambulatory Limitations: no limitations Nursing Notes Reviewed: Yes Vital Signs Reviewed: Yes - History of Present Illness HPI Narrative: Patient is a 62-year-old male with a past medical history of COPD, CAD, DM, [place] and pancreatitis presenting to the emergency department with presentation of epigastric abdominal pain has been going on for the past week. The patient states that this is associated with nausea and vomiting. He describes the pain as a constant moderate stabbing pain. No radiation. States he has not had any vomiting just nausea. He denies any diarrhea, hematochezia or melena. Patient states he was recently discharged from the hospital which she was admitted for pancreatitis. Pain Scale: 10 - Related Data Home Medications Medication Instructions Recorded Confirmed Albuterol Sulfate [Albuterol 2 puff IH Q4HR PRN 05/17/15 10/27/17 Inhaler] Atorvastatin Calcium [Lipitor] 80 mg PO HS 05/17/15 10/27/17 Cholestyramine 4 gm PO BIDAC 05/17/15 10/27/17 Ezetimibe [Zetia] 10 mg PO DAILY 05/17/15 10/27/17 Metformin HCl [Glucophage] 1,000 mg PO BID 05/17/15 10/27/17 Tiotropium [Spiriva] 18 mcg IH 0700 05/17/15 10/27/17 Perphenazine [Trilafon] 8 mg PO DAILY 09/28/15 10/27/17 glipiZIDE [Glipizide] 10 mg PO BID 03/25/17 10/27/17 Clopidogrel [Plavix] 75 mg PO DAILY 10/27/17 10/27/17 Furosemide [Lasix] 20 mg PO DAILY 10/27/17 10/27/17 Lisinopril [Zestril] 2.5 mg PO DAILY 10/27/17 10/27/17 Metoprolol Succinate [Toprol Xl] 25 mg PO DAILY 10/27/17 10/27/17 amLODIPine [Norvasc] 5 mg PO DAILY 10/27/17 10/27/17 Allergies Allergy/AdvReac Type Severity Reaction Status Date / Time loxapine [From Loxitane] Allergy See Verified 10/30/17 12:49 Comments betamethasone AdvReac Hives Verified 10/30/17 12:49 [From Lotrisone] clotrimazole [From Lotrisone] AdvReac Hives Verified 10/30/17 12:49 Sulfa (Sulfonamide AdvReac Hives Verified 10/30/17 12:49 Antibiotics) All systems ED: reviewed and negative except as stated. Review of Systems: As Per HPI Constitutional: Denies: fever, chills Cardiovascular: Denies: chest pain, palpitations Respiratory: Denies: cough, dyspnea Gastrointestinal: Reports: abdominal pain, nausea. Denies: vomiting, diarrhea, hematemesis, melena, hematochezia Genitourinary: Denies: urgency, dysuria Musculoskeletal: Denies: back pain, neck pain Integumentary: Denies: rash Neurological: Denies: headache Past Medical History - Past Medical History Attestation: Yes The following information was validated with the patient. Medical history: Reports: cancer, COPD, coronary artery disease, diabetes, myocardial infarction, other Surgical history: Reports: herniorrhaphy, other Psychiatric history: Reports: no psych history - Social History Smoking Status: Current every day smoker Smokeless Tobacco Status: No Alcohol use: Reports: none Drug use: Reports: none Physical Exam CONSTITUTIONAL: Alert and oriented X3, well-nourished, well appearing, in no apparent distress HEAD: Normocephalic; atraumatic. EYES: PERRL, no scleral icterus. NOSE: The nose is normal in appearance without rhinorrhea RESP: Normal chest excursion with respiration; breath sounds clear and equal bilaterally; no wheezes, rhonchi, or rales CARD: Regular rhythm, without murmurs, rub or gallop ABD: Non-distended; moderate epigastric tenderness without rigidity, rebound or guarding SKIN: Normal for age and race; warm and dry; no apparent lesions - General Limitations: no limitations General appearance: alert Course Course Narrative: Patient was recently discharged from the hospital after he is being treated for respiratory complaints as well as acute pancreatitis. Patient states that since being discharged he has had a progressing epigastric abdominal pain that feels similar to when he was recently in the hospital for his pancreatitis. The patient denies any alcohol use. Denies any bilious vomiting. Plan at this time is to treat the patient's pain we will also order a CT of abdomen and pelvis as well as basic labs to evaluate for possible gallstones versus pancreatitis and etiology of the patient's pain. Given that his pain is epigastric and he does have a history of stents we will also order a troponin, EKG and chest x-ray to make sure that this pain is not of a cardiac etiology. - Reevaluation(s) Reevaluation #1: Patient CT scan does show evidence according to radiologist's report of acute pancreatitis with surrounding fat stranding and inflammation that is worsened from prior study. Patient also has an elevation of his lipase that is 399 which is the highest level and he has had on record here at this hospital. Does appear that the patient did have a thorough workup for his pancreatitis on his prior visit with no obvious etiology. Plan at this time is to continue the patient with nothing by mouth, IV fluids the patient states his pain is currently well controlled with the pain medication administered. Patient will be admitted to the hospital for pancreatitis. He did have a slight elevation in his troponin however given his pain symptoms and his prior troponins this is not appear to be in acute elevation. Most likely his baseline and his EKG does not show ischemic changes at this time. Time: 15:14 Reevaluation #2: Patient accepted to Dr. Schulte for acute pancreatitis. Time: 15:19 Vital Signs Temperature 98.1 F 10/30/17 12:50 Pulse Rate 97 10/30/17 12:50 Respiratory Rate 20 10/30/17 12:50 Blood Pressure 131/97 10/30/17 12:50 O2 Sat by Pulse Oximetry 97 10/30/17 12:50 Temperature 98.1 F 10/30/17 12:50 Pulse Rate 97 10/30/17 12:50 Respiratory Rate 20 10/30/17 12:50 Blood Pressure 131/97 10/30/17 12:50 O2 Sat by Pulse Oximetry 97 10/30/17 12:50 Oxygen Delivery Oxygen Delivery Room Air Medical Decision Making - Medical Records Medical records reviewed: Yes I reviewed the patient's medical records. - Lab Data Lab results reviewed: Yes I reviewed the patient's lab results. Result diagrams: 10/30/17 13:32 10/30/17 13:32 Lab Results 10/30/17 10/30/17 Range/Units 13:32 13:32 WBC 10.4 (4.3-11.1) K/mcL RBC 4.85 (4.19-5.50) M/mcL Hgb 15.0 (12.9-16.9) g/dL Hct 44.4 (37.5-50.1) % MCV 91.5 (83.0-100.0) fL MCH 30.9 (28.0-33.3) pg MCHC 33.8 (31.6-35.5) g/dL RDW 13.3 (11.5-14.5) % Plt Count 211 (140-400) K/mcL MPV 10.8 (9.4-12.4) fL Immature Gran % 0.4 (0-4) % Seg Neutrophils % 82.6 % Lymphocytes % 8.0 % Monocytes % 7.3 % Eosinophils % 1.3 % Basophils % 0.4 % Neutrophils # 8.6 (1.6-8.9) K/mcL Lymphocytes # 0.8 (0.6-4.6) K/mcL Monocytes # 0.8 (0.0-1.3) K/mcL Eosinophils # 0.1 (0.0-0.6) K/mcL Basophils # 0.0 (0.0-0.2) K/mcL Sodium 134 L (136-145) mEq/L Potassium 3.9 (3.5-5.1) mEq/L Chloride 96 L (98-107) mEq/L Carbon Dioxide 29 (23-29) mEq/L BUN 9 (8-23) mg/dL Creatinine 0.71 (0.70-1.30) mg/dL Est GFR ( Amer) > 60 (> 60) Est GFR (Non-Af Amer) > 60 (> 60) BUN/Creatinine Ratio 13 (6-26) Glucose 314 H (70-105) mg/dL Calculated Osmolality 289 (280-300) Calcium 9.4 (8.6-10.3) mg/dL Total Bilirubin 0.6 (0.3-1.0) mg/dL Direct Bilirubin 0.3 H (0.0-0.2) mg/dL Indirect Bilirubin 0.3 (0.0-1.2) mg/dL AST 11 L (13-39) Units/L ALT 11 (7-52) Units/L Alkaline Phosphatase 77 (34-104) Units/L Troponin I 0.04 H* (< 0.04) ng/mL Serum Total Protein 6.9 (6.4-8.9) g/dL Albumin 3.8 (3.5-5.7) g/dL Globulin 3.1 (2.4-3.5) g/dL Albumin/Globulin Ratio 1.2 (1.1-2.2) Lipase 399 H (11-82) Units/L - Radiology Data Radiology results reviewed: Yes I reviewed the patient's radiology results. Abdomen/Pelvis CT 10/30/17 13:15 IMPRESSION: Evidence of acute pancreatitis ; peripancreatic fat stranding/ inflammation is slightly increased since the prior study. D/ / Helena Adams Cha, MD / Helena Adams Cha, MD Interpreting Provider: Helena Adams Cha, MD Chest X-Ray 10/30/17 13:15 IMPRESSION: Stable chest with cardiomegaly. No acute cardiopulmonary process. D/ / Alex Becerra MD / Alex Becerra MD Interpreting Provider: Alex Becerra MD - EKG Data EKG #1 EKG attestation: Yes I reviewed and interpreted this EKG. EKG results narrative: EKG done at 13:23 shows sinus rhythm at a rate of 88 bpm. Normal axis. [place] is 135, QRS is 102, QT is 350 and QTc is 396 and these are within normal limits. No signs of ST elevation, ST depression or Q waves present at this time. No old EKG for comparison. Critical Care Time Critical Care Time: Yes Total Critical Care Time: 35 Attestation: Critical care time 35 minutes managing patient's acute pancreatitis and elevated troponin. Attestation Statement - Attestation Attestation: Patient was seen with resident physician. I reviewed the history, physical, assessment and plan, and agree with the findings. I also personally evaluated this patient and had [id number] time with this patient. 62-year-old male presents emergency department with worsening mid epigastric abdominal pain. Patient describes it as a sharp nagging pain that has been going for approximately a week. He was in the hospital for pancreatitis recently and he says it feels very similar to that. He has had nausea without vomiting no diarrhea or other complaints. No chest pain. On exam vital signs were stable ENT is unremarkable. Heart regular rhythm and rate. Lungs clear. Abdomen obese tender in the midepigastric and left and right upper quadrants. There is no guarding rigidity. No palpable masses. Extremities unremarkable. Neurologically alert and oriented. Skin no rashes. Psych normal. ED course patient was worked up for pancreatitis and found to have a slightly elevated troponin, but more concerning was the lipase which was almost 400. This is the highest it has been. EKG did not show any acute ischemic changes. CT scan the abdomen and pelvis also demonstrated acute pancreatitis The patient was started on IV fluids. We will manage his discomfort and will admit to the hospitalist service for further evaluation and treatment. We did contact the hospitalist agreed to accept the patient for admission. Critical care time for this patient was 35 minutes.
[2017-10-30 15:49] LABS: Bilirubin,Urine Negative (Negative); Blood,Urine Negative (Negative); Clarity,Urine Cloudy (Clear); Color,Urine Yellow (Yellow); Glucose,Urine (UA) 500 mg/dL (Normal); Ketones,Urine Negative (Negative); Leukocyte Esterase,Urine Negative (Negative); Nitrite,Urine Negative (Negative); PH,Urine 5.5 pH Units (5.0-8.0); Protein,Urine Trace mg/dL (Neg-Trace); Specific Gravity,Urine 1.022 (1.010-1.025); Urobilinogen,Urine Normal (Normal)
[2017-10-30 15:52] LABS: Bacteria,Urine None Seen per hpf (None-Few); Hyaline Casts,Urine None Seen per lpf (None-Few); Squamous Epithelial Cell,Urine Few per lpf (None-Few); WBC,Urine 0-3 per hpf (0-3)
[2017-10-30] MEDS ORDERED: Ketorolac 15 MG/ML VIAL IVP PRN (17:17)
[2017-10-30] MEDS ORDERED: *HR* FentaNYL (PF) 100 MCG/2 ML VIAL IVP PRN (17:19)
[2017-10-30] MEDS ORDERED: *HR* Promethazine 25 MG/ML VIAL IVP PRN (17:20)
[2017-10-30] MEDS ORDERED: D5% in Water 1,000 ML IVC PRN (17:25)
[2017-10-30] MEDS ORDERED: Dextrose Gel 15 GM/37.5 ML TUBE PO PRN ×2 (17:25)
[2017-10-30] MEDS ORDERED: *HR* Dextrose 50 % in Water (Syg) 50 ML SYRINGE IVP PRN (17:25)
--- NOTE | 2017-10-30 17:30 | Internal Med History&Physical ---
Date of Encounter: 10/30/17 Time of Encounter: 17:00 Internal Medicine - H&P: HPI History of present illness: Mr. Emmanuel is a 62 year old male Past Med Surg Social Fam HX - Past Medical History Medical history: cancer, COPD, coronary artery disease, diabetes, myocardial infarction, other Psychiatric history: no psych history - Past Surgical History Surgical History: herniorrhaphy, other - Social History Smoking Status: Current every day smoker Smokeless Tobacco Status: No Alcohol use: none Drug use: none - Family History Father Adopted: No Living Status: Hx Family Cardiac Disorders: Yes Mother Living Status: Hx Family Cardiac Disorders: No Hx Family Respiratory Disorders: No Hx Family Cancer: Yes Internal Medicine - H&P: Meds Albuterol Sulfate [Albuterol Inhaler] 2 puff IH Q4HR PRN 05/17/15 [History] Atorvastatin Calcium [Lipitor] 80 mg PO HS 05/17/15 [History] Cholestyramine 4 gm PO BIDAC 05/17/15 [History] Ezetimibe [Zetia] 10 mg PO DAILY 05/17/15 [History] Metformin HCl [Glucophage] 1,000 mg PO BID 05/17/15 [History] Tiotropium [Spiriva] 18 mcg IH DAILY 05/17/15 [History] Perphenazine [Trilafon] 8 mg PO DAILY 09/28/15 [History] glipiZIDE [Glipizide] 10 mg PO BID 03/25/17 [History] Clopidogrel [Plavix] 75 mg PO DAILY 10/27/17 [History] Furosemide [Lasix] 20 mg PO DAILY 10/27/17 [History] Lisinopril [Zestril] 2.5 mg PO DAILY 10/27/17 [History] Metoprolol Succinate [Toprol Xl] 25 mg PO DAILY 10/27/17 [History] SitaGLIPtin [Januvia] 100 mg PO DAILY 10/30/17 [History] 3 Allergy/AdvReac Type Severity Reaction Status Date / Time loxapine [From Loxitane] Allergy See Verified 10/30/17 12:49 Comments betamethasone AdvReac Hives Verified 10/30/17 12:49 [From Lotrisone] clotrimazole [From Lotrisone] AdvReac Hives Verified 10/30/17 12:49 Sulfa (Sulfonamide AdvReac Hives Verified 10/30/17 12:49 Antibiotics) All Systems PM: A 10-system review of systems was performed and is negative for pertinent findings except as documented above in the HPI. - Constitutional Constitutional: no chills, no fever(s), no lethargy - EENT Eyes: no change in vision, no diplopia, no itchy eyes Nose, mouth and throat: no bleeding gums, no dry mouth, no nasal discharge, no sinus pressure - Cardiovascular Cardiovascular ROS IM: no chest pain, no irregular heart rhythm, no syncope - Respiratory Respiratory: no cough, no dyspnea, no snoring - Gastrointestinal Gastrointestinal: abdominal pain, constipation, no diarrhea, no dysphagia, no hematemesis, no hematochezia, no melena, no odynophagia - Musculoskeletal Musculoskeletal ROS IM: no atrophy, no muscle cramps, no muscle weakness - Neurological Neurological ROS: no confusion, no convulsions, no dizziness, no paresthesias, no radicular pain - Constitutional Vitals: Temp Pulse Resp BP Pulse Ox 98.1 F 97 20 131/97 97 10/30/17 12:50 10/30/17 12:50 10/30/17 12:50 10/30/17 12:50 10/30/17 12:50 General appearance: Present: cooperative, A&O X 3, pleasant, obese - Head Head exam: Present: atraumatic, normocephalic - Eye Eye exam: Present: EOMI, PERRL, conjuntiva pink, sclera anicteric Pupils: Present: PERRL - Neck Neck exam general surgery: Present: supple, trachea midline. Absent: lymphadenopathy - Respiratory Respiratory exam: Present: CTAB. Absent: accessory muscle use, rales, rhonchi, wheezes - Cardiovascular Cardiovascular exam: Present: RRR, +S1, +S2. Absent: diastolic murmur, gallop, rubs, systolic murmur - GI/Abdominal GI/Abdominal exam: Present: normal bowel sounds, soft, no peritoneal signs. Absent: distended, tenderness - Extremities Exam Extremities exam: Present: warm, radial pulses palpable and symmetrical. Absent : calf tenderness, cyanotic, pedal edema - Neurological Exam Neurological exam: Present: CN II-XII intact, oriented X3, no focal deficits. Absent: facial droop, speech deficit - Skin Skin exam: Present: dry, intact Internal Med - H&P Results - Labs CBC & Chem 7: 10/30/17 13:32 10/30/17 13:32 Labs: Short CBC 10/30/17 Range/Units 13:32 WBC 10.4 (4.3-11.1) K/mcL Hgb 15.0 (12.9-16.9) g/dL Hct 44.4 (37.5-50.1) % Plt Count 211 (140-400) K/mcL Neutrophils # 8.6 (1.6-8.9) K/mcL BMP 10/30/17 13:32 Sodium 134 L Potassium 3.9 Chloride 96 L Carbon Dioxide 29 BUN 9 Creatinine 0.71 Glucose 314 H Calcium 9.4 Cardiac Enzymes 10/30/17 Range/Units 13:32 Troponin I 0.04 H* (< 0.04) ng/mL Liver Function 10/30/17 Range/Units 13:32 Total Bilirubin 0.6 (0.3-1.0) mg/dL Direct Bilirubin 0.3 H (0.0-0.2) mg/dL AST 11 L (13-39) Units/L ALT 11 (7-52) Units/L Alkaline Phosphatase 77 (34-104) Units/L Albumin 3.8 (3.5-5.7) g/dL Urine 10/30/17 Range/Units 15:30 Urine Color Yellow (Yellow) Urine Clarity Cloudy A (Clear) Urine pH 5.5 (5.0-8.0) pH Units Ur Specific [place] 1.022 (1.010-1.025) Urine Protein Trace (Neg-Trace) mg/dL Urine Glucose (UA) 500 H (Normal) mg/dL - Impressions ITS Impressions Abdomen/Pelvis CT 10/30/17 13:15 IMPRESSION: Evidence of acute pancreatitis ; peripancreatic fat stranding/ inflammation is slightly increased since the prior study. D/ / Helena Adams Cha, MD / Helena Adams Cha, MD Interpreting Provider: Helena Adams Cha, MD Chest X-Ray 10/30/17 13:15 IMPRESSION: Stable chest with cardiomegaly. No acute cardiopulmonary process. D/ / Alex Becerra MD / Alex Becerra MD Interpreting Provider: Alex Becerra MD - Assessment and plan (1) Acute pancreatitis Current Visit: Yes Status: Acute Assessment and plan: Discharge yesterday after extensive negative w/u for cause of pancreatitis Pt. advanced his diet from clears to general diet and then began have recurrence of his previous symptoms Lipase is higher than previous admission RUQ now very tender. Previous RUQ U/S unrevealing. Given severe RUQ pain a RUQ U/S will be repeated NPO IVF LR at 125 Toradol and Fentanyl for pain Recent (days ago) RUQ U/S, CT-ABd/Pelvis and TG (lipid panel) were all unrevealing as to etiology ETOH level checked Repeat Lipase and CMP in am Zofran and phenergan for n/v Qualifiers: Acute pancreatitis complication: unspecified Qualified Code(s): K85.90 - Acute pancreatitis without necrosis or infection, unspecified (2) Abdominal pain Current Visit: Yes Status: Acute Assessment and plan: Secondary to acute on chronic pancreatitis Pain mgt as noted above Qualifiers: Abdominal location: right upper quadrant Qualified Code(s): R10.11 - Right upper quadrant pain (3) COPD without exacerbation Current Visit: No Status: Chronic Assessment and plan: Continue home bronchodilators (4) Diabetes Current Visit: Yes Status: Acute Assessment and plan: Hold oral antihyperglycemic while NPO and start Q6 low-SSI AccuChecks q6 while NPO Qualifiers: Diabetes mellitus type: type 2 Diabetes mellitus mcfp insulin use: without mcfp use Diabetes mellitus complication status: with other specified complication Qualified Code(s): E11.69 - Type 2 diabetes mellitus with other specified complication (5) DVT prophylaxis Current Visit: No Status: Chronic Assessment and plan: sq heparin (6) HTN (hypertension) Current Visit: No Status: Chronic Assessment and plan: Continue home medications. Qualifiers: Hypertension type: essential hypertension Qualified Code(s): I10 - Essential (primary) hypertension - Time Spent With Patient Total time spent is greater than 50% in coordination of care (as documented) at patient's floor/unit and/or counseling patient:
[2017-10-30 19:10] LABS: Amphetamine Screen,Urine Negative ng/mL (Cutoff=1000); Barbiturate Screen,Urine Negative ng/mL (Cutoff=200); Benzodiazepines Screen,Urine Negative ng/mL (Cutoff=200); Cannabinoid Screen,Urine Negative ng/mL (Cutoff = 50); Cocaine Screen,Urine Negative ng/mL (Cutoff= 300); Opiate Screen,Urine Negative ng/mL (Cutoff=300); Phencyclidine Screen,Urine Negative ng/mL (Cutoff=25)
[2017-10-30] MEDS: Ringers Solution, Lactated 1,000 ML IVC SCH (20:00)
[2017-10-30] MEDS: Insulin LISPRO 300 UNITS/3 ML VIAL SQ SCH (20:01)
[2017-10-30] MEDS: Tiotropium 18 MCG inhalation IH SCH (20:24)
[2017-10-30] MEDS ORDERED: OXYCODONE Oral CONC 10 MG/0.5 ML ORAL.SYG SL PRN (23:42)
[2017-10-31] MEDS: Insulin LISPRO 300 UNITS/3 ML VIAL SQ SCH ×5 (02:54→23:38)
[2017-10-31] MEDS: Ringers Solution, Lactated 1,000 ML IVC SCH ×2 (03:46→09:00)
[2017-10-31 05:04] LABS: Basophils # 0.1 K/mcL (0.0-0.2); Basophils % 0.6 %; Eosinophils # 0.3 K/mcL (0.0-0.6); Hematocrit 45.2 % (37.5-50.1); Hemoglobin 14.4 g/dL (12.9-16.9); Immature Granulocytes % 0.4 % (0-4); Lymphocytes # 1.4 K/mcL (0.6-4.6); Lymphocytes % 16.8 %; Mean Corpuscular HGB Conc 31.9 g/dL (31.6-35.5); Mean Corpuscular Hemoglobin 30.4 pg (28.0-33.3); Mean Corpuscular Volume 95.4 fL (83.0-100.0); Mean Platelet Volume 10.4 fL (9.4-12.4); Monocytes # 0.8 K/mcL (0.0-1.3); Monocytes % 9.2 %; Neutrophils # 5.9 K/mcL (1.6-8.9); Platelet Count 202 K/mcL (140-400); Red Blood Count 4.74 M/mcL (4.19-5.50); Red Cell Distribution Width 13.5 % (11.5-14.5)
[2017-10-31 05:09] LABS: Alanine Aminotransferase 9 Units/L (7-52); Albumin 3.7 g/dL (3.5-5.7); Albumin/Globulin Ratio 1.4 (1.1-2.2); Alkaline Phosphatase 71 Units/L (34-104); Aspartate Amino Transferase 10 Units/L (13-39); BUN/Creatinine Ratio 10 (6-26); Bilirubin,Total 0.7 mg/dL (0.3-1.0); Blood Urea Nitrogen 8 mg/dL (8-23); Calcium 9.3 mg/dL (8.6-10.3); Carbon Dioxide 35 mEq/L (23-29); Chloride 99 mEq/L (98-107); Globulin 2.6 g/dL (2.4-3.5); Glucose 143 mg/dL (70-105); Lipase 162 Units/L (11-82); Osmolality,Calculated 285 (280-300); Potassium 4.5 mEq/L (3.5-5.1); Sodium 137 mEq/L (136-145); Total Protein 6.3 g/dL (6.4-8.9); eGFR For African Americans > 60 (> 60); eGFR For Non-African Americans > 60 (> 60)
[2017-10-31] MEDS: Tiotropium 18 MCG inhalation IH SCH (07:48)
[2017-10-31] MEDS ORDERED: 0.9 % Sodium Chloride 1,000 ML IVC SCH (08:30)
[2017-10-31] MEDS ORDERED: Furosemide 20 MG TABLET PO SCH (09:00)
[2017-10-31] MEDS: *HR* SitaGLIPtin 100 MG TABLET PO SCH (09:06)
[2017-10-31] MEDS: Metoprolol XL (24 HR) Succ 25 MG TAB.ER.24H PO SCH (09:07)
[2017-10-31] MEDS: Cholestyramine 4 GM POWD.PACK PO SCH ×2 (09:07→17:41)
[2017-10-31] MEDS: (Ezetimibe [Zetia] 10 MG) PO SCH (09:07)
--- NOTE | 2017-10-31 12:51 | Internal Med Progress Note ---
Date of Encounter: 10/31/17 Time of Encounter: 10:50 - Assessment and plan (1) DVT prophylaxis Current Visit: Yes Status: Chronic Assessment and plan: sq heparin (2) HTN (hypertension) Current Visit: Yes Status: Chronic Assessment and plan: Continue home medications. Qualifiers: Hypertension type: essential hypertension Qualified Code(s): I10 - Essential (primary) hypertension (3) Acute pancreatitis Current Visit: Yes Status: Acute Assessment and plan: Recurrent Discharged 10/29 after extensive negative w/u for cause of pancreatitis He was discharged tolerating regular diet He however represented with abdominal pain in his LLq , and with lipase is higher than previous admission RUQ was tender. Previous RUQ U/S unrevealing. RUQ USS was unremarkable in prior admission, repeated, report is pending LFT is WNL Patient denies alcohol intake Continue pain control , Keep NPO for now Zofran and phenergan for n/v Qualifiers: Acute pancreatitis complication: unspecified Qualified Code(s): K85.90 - Acute pancreatitis without necrosis or infection, unspecified (4) Abdominal pain Current Visit: Yes Status: Acute Assessment and plan: Secondary to acute on chronic pancreatitis Pain mgt as noted above Qualifiers: Abdominal location: right upper quadrant Qualified Code(s): R10.11 - Right upper quadrant pain (5) COPD without exacerbation Current Visit: Yes Status: Chronic Assessment and plan: Continue home bronchodilators (6) Diabetes Current Visit: Yes Status: Chronic Assessment and plan: FS q6h KEep NPO Sliding scale Q6H Qualifiers: Diabetes mellitus type: type 2 Diabetes mellitus joint terminal attack controller insulin use: without joint terminal attack controller use Diabetes mellitus complication status: with other specified complication Qualified Code(s): E11.69 - Type 2 diabetes mellitus with other specified complication (7) Obesity Current Visit: Yes Status: Chronic Assessment and plan: lifestyle modification Qualifiers: Obesity classification: adult class 3 (BMI >= 40) Serious obesity comorbidity presence: without serious comorbidity Body mass index: BMI 40.0- 44.9 Qualified Code(s): E66.9 - Obesity, unspecified; Z68.41 - Body mass index (BMI) 40.0-44.9, adult; Z68.41 - Body mass index (BMI) 40.0-44.9, adult; Z68.41 - Body mass index (BMI) 40.0-44.9, adult; Z68.41 - Body mass index (BMI) 40.0-44.9, adult (8) CHF (congestive heart failure) Current Visit: Yes Status: Chronic Assessment and plan: EF 20-25% ECHO from 07/2017 noted CMP due to IHD Euvolemic at this time Discontinue IVF Monitor resp status Qualifiers: Heart failure type: systolic Heart failure chronicity: chronic Qualified Code(s): I50.22 - Chronic systolic (congestive) heart failure (9) Elevated troponin Current Visit: Yes Status: Acute Assessment and plan: chronic on trend no chest pain continue to monitor - Time Spent With Patient Total time spent is greater than 50% in coordination of care (as documented) at patient's floor/unit and/or counseling patient: - Subjective Interval history: 62 M readmitted for recurrent pancreatitis He reports his abdominal pain is minimally imprved And requesting for something to drink or eat He is hemodynamically stable - Constitutional Vitals: Temp Pulse Resp BP Pulse Ox 98.0 F 66 16 99/70 97 10/31/17 12:12 10/31/17 12:12 10/31/17 12:12 10/31/17 12:12 10/31/17 12:12 General appearance: Present: cooperative, A&O X 3, morbidly obese, pleasant - Head Head exam: Present: atraumatic, normocephalic - Eye Eye exam: Present: PERRL, conjuntiva pink, sclera anicteric Pupils: Present: PERRL - Neck Neck exam general surgery: Present: supple, trachea midline. Absent: lymphadenopathy - Respiratory Respiratory exam: Present: CTAB. Absent: accessory muscle use, rales, rhonchi, wheezes - Cardiovascular Cardiovascular exam: Present: RRR, +S1, +S2. Absent: diastolic murmur, gallop, rubs, systolic murmur - GI/Abdominal GI/Abdominal exam: Present: normal bowel sounds, soft, no peritoneal signs. Absent: distended, tenderness - Extremities Exam Extremities exam: Present: warm, radial pulses palpable and symmetrical. Absent : calf tenderness, cyanotic, pedal edema - Neurological Exam Neurological exam: Present: alert, CN II-XII intact, oriented X3, no focal deficits. Absent: pronater drift, facial droop, speech deficit - Skin Skin exam: Present: dry, intact Internal Medicine: Result - Labs CBC & Chem 7: 10/31/17 04:00 10/31/17 04:00 Labs: Short CBC 10/31/17 Range/Units 04:00 WBC 8.4 (4.3-11.1) K/mcL Hgb 14.4 (12.9-16.9) g/dL Hct 45.2 (37.5-50.1) % Plt Count 202 (140-400) K/mcL Neutrophils # 5.9 (1.6-8.9) K/mcL BMP 10/31/17 04:00 Sodium 137 Potassium 4.5 Chloride 99 Carbon Dioxide 35 H BUN 8 Creatinine 0.77 Glucose 143 H Calcium 9.3 Cardiac Enzymes 10/30/17 10/31/17 Range/Units 22:32 04:00 Troponin I 0.05 H* 0.04 H* (< 0.04) ng/mL Liver Function 10/31/17 Range/Units 04:00 Total Bilirubin 0.7 (0.3-1.0) mg/dL AST 10 L (13-39) Units/L ALT 9 (7-52) Units/L Alkaline Phosphatase 71 (34-104) Units/L Albumin 3.7 (3.5-5.7) g/dL Consult Discharge Plan - Plan Referrals: Zackary Hale MD [Primary Care Provider] -
[2017-11-01] MEDS: Insulin LISPRO 300 UNITS/3 ML VIAL SQ SCH ×3 (05:58→18:02)
[2017-11-01] MEDS: (Ezetimibe [Zetia] 10 MG) PO SCH (08:03)
[2017-11-01] MEDS: Tiotropium 18 MCG inhalation IH SCH (08:16)
[2017-11-01] MEDS: Cholestyramine 4 GM POWD.PACK PO SCH (08:33)
[2017-11-01] MEDS: *HR* SitaGLIPtin 100 MG TABLET PO SCH (08:34)
[2017-11-01] MEDS: Metoprolol XL (24 HR) Succ 25 MG TAB.ER.24H PO SCH (10:19)
--- NOTE | 2017-11-01 13:09 | Internal Med Progress Note ---
<CarlitosadelinaJonathan Campos - Last Filed: 11/01/17 14:03> Date of Encounter: 11/01/17 Time of Encounter: 11:00 - Assessment and plan (1) Acute pancreatitis Current Visit: Yes Status: Acute Assessment and plan: Recurrent CT abdomen has findings of Acute Pancreatitis RUQ was tender. Previous RUQ U/S unrevealing. RUQ u/s demonstrated no significant findings LFT is WNL Lipase trending down from 399->162 Patient denies alcohol intake, hx of gallstones or drug use. - No prior episodes of pancreatitis prior to the last month. Continue pain control Discontinue Sitagliptin (Januvia) which increases risk for pancreatitis. Clear liquids with advances in diet slowly Zofran and phenergan for n/v Qualifiers: Acute pancreatitis complication: unspecified Qualified Code(s): K85.90 - Acute pancreatitis without necrosis or infection, unspecified (2) Systolic heart failure Current Visit: Yes Status: Acute Assessment and plan: EF 20-25% ECHO from 07/2017: LVEF 20-25%, Small mobile thrombus in LV apex measuring 1.0x1.0cm, improved from 10% in 04/11 Euvolemic at this time No need for IV fluids at this time. Monitor resp status - Continue Atorvastatin, Plavix, Toprolol XL, ACEI (3) Type II diabetes mellitus Current Visit: Yes Status: Acute Assessment and plan: Type II DM with complications - Hold Januvia - Continue inpatient sliding scale - Monitor Q4hrs (4) Obesity (BMI 35.0-39.9 without comorbidity) Current Visit: No Status: Chronic Assessment and plan: Likely contributing to the patients multiple medical problems. Recommend dietary and exercise improvements. - Time Spent With Patient Total time spent is greater than 50% in coordination of care (as documented) at patient's floor/unit and/or counseling patient: - Subjective Interval history: Mr. Emmanuel has been seen and evaluated at patient bedside. He has some mild abdominal pain, denies n/v/d/c. He would like to advance his diet if tolerated. Denies any other concerning symptoms at this time. - Constitutional Vitals: Temp Pulse Resp BP Pulse Ox 97.6 F 71 20 103/67 98 11/01/17 10:52 11/01/17 10:52 11/01/17 10:52 11/01/17 10:52 11/01/17 10:52 General appearance: Present: cooperative, A&O X 3, morbidly obese, pleasant Exam: HEENT: NC/AT, PERRLA, Moist mucous membranes. Chest: symmetric bilateral correlating with respiratory effort Resp: CTABL Cardiac: RRR, +S1,+S2. Abdomen: distended, mild tenderness to palpation, + BS, no bruising or eccymosis Extremities: trace edema in bilateral LE Internal Medicine: Result - Labs CBC & Chem 7: 10/31/17 04:00 10/31/17 04:00 - Impressions Impressions Gallbladder Ultrasound 11/01/17 10:00 IMPRESSION: 1. Coarse liver echotexture, nonspecific. Recommend correlation with LFTs. 2. Otherwise unremarkable right upper quadrant ultrasound. D/ / 11/01/2017 10:24:40 Jessica Velez MD / gerald Interpreting Provider: Jessica Velez MD Consult Discharge Plan - Plan [facility] [place] [facility] - <Jad Mata T - Last Filed: 11/01/17 16:05> Date of Encounter: 11/01/17 - Assessment and plan (1) DVT prophylaxis Current Visit: Yes Status: Chronic (2) HTN (hypertension) Current Visit: Yes Status: Chronic Qualifiers: Hypertension type: essential hypertension Qualified Code(s): I10 - Essential (primary) hypertension (3) Acute pancreatitis Current Visit: Yes Status: Acute Qualifiers: Acute pancreatitis complication: unspecified Qualified Code(s): K85.90 - Acute pancreatitis without necrosis or infection, unspecified (4) Abdominal pain Current Visit: Yes Status: Acute Qualifiers: Abdominal location: right upper quadrant Qualified Code(s): R10.11 - Right upper quadrant pain (5) COPD without exacerbation Current Visit: Yes Status: Chronic (6) Diabetes Current Visit: Yes Status: Chronic Qualifiers: Diabetes mellitus type: type 2 Diabetes mellitus senior living insulin use: without long term care social worker use Diabetes mellitus complication status: with other specified complication Qualified Code(s): E11.69 - Type 2 diabetes mellitus with other specified complication (7) Obesity Current Visit: Yes Status: Chronic Qualifiers: Obesity classification: adult class 3 (BMI >= 40) Serious obesity comorbidity presence: without serious comorbidity Body mass index: BMI 40.0- 44.9 Qualified Code(s): E66.9 - Obesity, unspecified; Z68.41 - Body mass index (BMI) 40.0-44.9, adult; Z68.41 - Body mass index (BMI) 40.0-44.9, adult; Z68.41 - Body mass index (BMI) 40.0-44.9, adult; Z68.41 - Body mass index (BMI) 40.0-44.9, adult (8) CHF (congestive heart failure) Current Visit: Yes Status: Chronic Qualifiers: Heart failure type: systolic Heart failure chronicity: chronic Qualified Code(s): I50.22 - Chronic systolic (congestive) heart failure (9) Elevated troponin Current Visit: Yes Status: Acute - Time Spent With Patient Total time spent is greater than 50% in coordination of care (as documented) at patient's floor/unit and/or counseling patient: - Constitutional Vitals: Temp Pulse Resp BP Pulse Ox 98.6 F 71 18 116/72 98 11/01/17 14:58 11/01/17 14:58 11/01/17 14:58 11/01/17 14:58 11/01/17 14:58 Internal Medicine: Result - Labs CBC & Chem 7: 10/31/17 04:00 10/31/17 04:00 - Impressions Impressions Gallbladder Ultrasound 11/01/17 10:00 IMPRESSION: 1. Coarse liver echotexture, nonspecific. Recommend correlation with LFTs. 2. Otherwise unremarkable right upper quadrant ultrasound. D/ / 11/01/2017 10:24:40 Jessica Velez MD / nury Interpreting Provider: Jessica Velez MD - Attending Attestation Seen and examined at the bedside Fully dressed , asking to be given something to eat, and asking to be discharged He is just s/p RUQ USS: Unremarkable Physical exam is unremarkable It is likely his pancreatitis is due to medications, discontinue Januvia If recurrent after this episode consider autoimmune pancreatitis Patient with severly decreased EF-20%, refusing AICD-educated , follow up with PCP Continue other management
[2017-11-01] MEDS ORDERED: Sennosides/Docusate Sodium TABLET PO PRN (19:16)
[2017-11-01] MEDS ORDERED: Insulin DETEMIR 100 UNIT/ML X5UNITS SQ SCH (21:00)
[2017-11-02] MEDS: Insulin LISPRO 300 UNITS/3 ML VIAL SQ SCH ×2 (01:15→05:24)
[2017-11-02] MEDS: Metoprolol XL (24 HR) Succ 25 MG TAB.ER.24H PO SCH (07:48)
[2017-11-02] MEDS: Tiotropium 18 MCG inhalation IH SCH (07:55)
[2017-11-02] MEDS ORDERED: Furosemide 20 MG TABLET PO SCH (09:00)
[2017-11-02] MEDS ORDERED: Perphenazine 8 MG TABLET PO SCH (09:00)
--- NOTE | 2017-11-02 09:04 | Discharge Summary ---
<Jonathan Major - Last Filed: 11/02/17 10:36> Date of Encounter: 11/02/17 Time of Encounter: 08:56 - Discharge Diagnosis (1) Acute pancreatitis Priority: Primary Status: Acute Qualifiers: Acute pancreatitis complication: unspecified (2) Systolic heart failure Priority: Secondary Status: Acute (3) Type II diabetes mellitus Priority: Secondary Status: Acute (4) Obesity (BMI 35.0-39.9 without comorbidity) Priority: Secondary Status: Chronic Hospital course: Mr. Emmanuel is a 62 year old male with significant past medical history of systolic heart failure with ejection fraction 30-35%, uncontrolled type 2 diabetes, hypertension, DE, recent admission for pancreatitis was admitted for pancreatitis on 10/30/2017. In the emergency department he had a CT of the abdomen performed that demonstrated pancreatitis with surrounding fat stranding. He will lipase of 399 was started on IV fluids, kept nothing by mouth and admitted to the general medical floor. His symptoms steadily improved resolution of his abdominal pain and he was started on clear liquid diet on 11/11/2017. He underwent ultrasound of his right upper quadrant that did not demonstrate any cholelithiasis or choledocholithiasis. Patient denies any alcohol abuse. Review of his home medications demonstrates Januvia which she started roughly one month ago. He has no history of prior pancreatitis prior to the last month and this medication was stopped and patient. Symptoms steadily improved throughout inpatient stay, he tolerated advancement in his diet. 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 Mr. Emmanuel was seen and evaluated on 11/02/2017 deemed stable for discharge home, recommended bland diet and improvement in his overall dietary intake. His Januvia and glipizide were held he was started on Amaryl and Glucophage. He is to follow-up with his primary care provider for reevaluation. - Time Spent with Patient Total time spent providing and/or coordinating discharge services: - Discharge Medications Prescriptions: Glimepiride [Amaryl] 2 mg PO 0800 15 Days #15 tablet Home Medications: Albuterol Sulfate [Albuterol Inhaler] 2 puff IH Q4HR PRN 05/17/15 [History] Atorvastatin Calcium [Lipitor] 80 mg PO HS 05/17/15 [History] Cholestyramine 4 gm PO BIDAC 05/17/15 [History] Ezetimibe [Zetia] 10 mg PO DAILY 05/17/15 [History] Metformin HCl [Glucophage] 1,000 mg PO BID 05/17/15 [History] Tiotropium [Spiriva] 18 mcg IH DAILY 05/17/15 [History] Perphenazine [Trilafon] 8 mg PO DAILY 09/28/15 [History] Clopidogrel [Plavix] 75 mg PO DAILY 10/27/17 [History] Furosemide [Lasix] 20 mg PO DAILY 10/27/17 [History] Lisinopril [Zestril] 2.5 mg PO DAILY 10/27/17 [History] Metoprolol Succinate [Toprol Xl] 25 mg PO DAILY 10/27/17 [History] Glimepiride [Amaryl] 2 mg PO 0800 15 Days #15 tablet 11/02/17 [Rx] Allergies/Adverse Reactions: 3 Allergy/AdvReac Type Severity Reaction Status Date / Time loxapine [From Loxitane] Allergy See Verified 10/30/17 12:49 Comments betamethasone AdvReac Hives Verified 10/30/17 12:49 [From Lotrisone] clotrimazole [From Lotrisone] AdvReac Hives Verified 10/30/17 12:49 Sulfa (Sulfonamide AdvReac Hives Verified 10/30/17 12:49 Antibiotics) Date of admission: 10/30/17 18:18 Primary care physician: Zackary Hale MD Discharging clinician: Jonathan Major Anticipated date of discharge: 11/02/17 - Constitutional Vitals: Temp Pulse Resp BP Pulse Ox 98.3 F 98 16 105/68 97 11/02/17 07:07 11/02/17 07:07 11/02/17 07:07 11/02/17 07:07 11/02/17 07:51 General appearance: Present: cooperative, A&O X 3, morbidly obese, pleasant Exam: General: Patient alert, awake, oriented 3, interactive, in no acute distress HEENT: Normocephalic, atraumatic, oral mucosa moist, uvula midline, neck supple trachea midline no palpable lymphadenopathy, no thyromegaly. Chest: Symmetric bilateral correlating with respiratory effort, effort nonlabored. Cardiac: Regular rate and rhythm, positive S1 and S2. no bruits appreciated bilateral carotids, Radial pulses 2+ bilateral, posterior tibial and dorsal pedal pulses 2+ bilateral. Respiratory: Clear to auscultation all lung ball Abdomen: Soft, obese, nontender, positive bowel sounds, no palpable masses appreciated on examination Extremities: Symmetric bilateral, bilateral lower extremities without erythema or edema patient moving all 4 extremities spontaneously. Neurologic: No focal deficits appreciated on examination. Face symmetric, muscle strength symmetric bilateral upper and lower extremities. - Patient Status Disposition: Home, Self-Care Condition: Fair Functional capacity at discharge: independent ambulation Overall status at discharge: patient is progressing back to baseline - Discharge Instructions Instructions: Glimepiride (By mouth), Pacemaker (DC), Pancreatitis (DC), Diabetes Mellitus Type 2 in Adults (DC), Chronic Hypertension (DC) Follow Up With: Zackary Hale MD [Primary Care Provider] - 11/05/17 3:30 pm Additional Instructions: 1. Follow-up with your primary care provider in the next 3-5 days 2. Take all prescriptions as prescribed, any concerns or questions contact her primary care provider. 3. Return to the emergency department if: Recurrent abdominal pain, abdominal distention, fevers, chills, diaphoresis or any other concerning medical signs or symptoms. - Diet and Activity Activity: increase activity as tolerated Diet: diabetic diet, low fat, low cholesterol, low salt diet <Kareem Tobias H - Last Filed: 11/02/17 12:52> Date of Encounter: 11/02/17 - Discharge Diagnosis (1) DVT prophylaxis Status: Chronic (2) HTN (hypertension) Status: Chronic Qualifiers: Hypertension type: essential hypertension Qualified Code(s): I10 - Essential (primary) hypertension (3) Acute pancreatitis Status: Acute Qualifiers: Acute pancreatitis complication: unspecified (4) Abdominal pain Status: Acute Qualifiers: Abdominal location: right upper quadrant Qualified Code(s): R10.11 - Right upper quadrant pain (5) COPD without exacerbation Status: Chronic (6) Diabetes Status: Chronic Qualifiers: Diabetes mellitus type: type 2 Diabetes mellitus senior living insulin use: without computer terminal operator use Diabetes mellitus complication status: with other specified complication Qualified Code(s): E11.69 - Type 2 diabetes mellitus with other specified complication (7) Obesity Status: Chronic Qualifiers: Obesity classification: adult class 3 (BMI >= 40) Serious obesity comorbidity presence: without serious comorbidity Body mass index: BMI 40.0- 44.9 Qualified Code(s): E66.9 - Obesity, unspecified; Z68.41 - Body mass index (BMI) 40.0-44.9, adult; Z68.41 - Body mass index (BMI) 40.0-44.9, adult; Z68.41 - Body mass index (BMI) 40.0-44.9, adult; Z68.41 - Body mass index (BMI) 40.0-44.9, adult (8) CHF (congestive heart failure) Status: Chronic Qualifiers: Heart failure type: systolic Heart failure chronicity: chronic Qualified Code(s): I50.22 - Chronic systolic (congestive) heart failure (9) Elevated troponin Status: Acute Hospital course: Mr. Emmanuel is a 62 year old male - Time Spent with Patient Total time spent providing and/or coordinating discharge services: Date of admission: 10/30/17 18:18 Primary care physician: Zackary Hale MD - Constitutional Vitals: Temp Pulse Resp BP Pulse Ox 98.2 F 71 16 106/69 94 11/02/17 10:12 11/02/17 10:12 11/02/17 10:12 11/02/17 10:12 11/02/17 10:12 - Attending Attestation acute pancreatitis likely caused by Januvia time spent : 40 min I examined this patient and my medical decision-making was reviewed with the Resident Physician. I agree with the documented findings, disposition and treatment plan as described except to the extent set forth below.
[2017-11-02 10:17] VITALS: BP 106/69
--- NOTE | 2017-11-03 00:32 | Electrocardiograph Report ---
[place] [id number] Test Date: 2017-10-30 Pat Name: Deuce Emmanuel Department: 102 Room: 3A45 Gender: M Director Call: : [id number] Requested By: Solo Madera Order Number: [id number] Reading MD: Nancy Alejandro Measurements Intervals [place] Rate: 88 P: 20 LA: 185 QRS: 76 QRSD: 102 T: 111 QT: 350 QTc: 396 Interpretive Statements SINUS RHYTHM WITH OCCASIONAL SUPRAVENTRICULAR PREMATURE COMPLEXES POOR R WAVE PROGRESSION IN PRECORDIAL LEADS Electronically Signed On 11-03-2017 0:30:24 EDT by Nancy Alejandro
== END 2017-11-02 11:41 | disposition home health service (06) ==
LOC: 3ANU 12:42 → EMEROO 12:42 → 3ANU 18:28
PROVIDERS: ADMIT Internal Medicine; ATTEND Internal Medicine

== ENCOUNTER 2017-11-10 03:09 | Inpatient (IN) ==
[2017-11-10 03:52] LABS: Basophils # 0.1 K/mcL (0.0-0.2); Basophils % 0.5 %; Eosinophils # 0.2 K/mcL (0.0-0.6); Eosinophils % 2.4 %; Immature Granulocytes % 0.2 % (0-4); Lymphocytes # 1.4 K/mcL (0.6-4.6); Lymphocytes % 14.7 %; Mean Corpuscular HGB Conc 32.6 g/dL (31.6-35.5); Mean Corpuscular Hemoglobin 30.4 pg (28.0-33.3); Mean Corpuscular Volume 93.1 fL (83.0-100.0); Mean Platelet Volume 9.9 fL (9.4-12.4); Monocytes # 0.8 K/mcL (0.0-1.3); Monocytes % 8.5 %; Neutrophils # 7.2 K/mcL (1.6-8.9); Platelet Count 251 K/mcL (140-400); Red Blood Count 4.94 M/mcL (4.19-5.50); Red Cell Distribution Width 13.4 % (11.5-14.5); Segmented Neutrophils % 73.7 %
[2017-11-10 04:17] LABS: Alanine Aminotransferase 9 Units/L (7-52); Albumin 3.9 g/dL (3.5-5.7); Albumin/Globulin Ratio 1.3 (1.1-2.2); Alkaline Phosphatase 76 Units/L (34-104); Amylase 95 Units/L (29-103); Aspartate Amino Transferase 11 Units/L (13-39); BUN/Creatinine Ratio 13 (6-26); Bilirubin,Direct 0.3 mg/dL (0.0-0.2); Bilirubin,Indirect 0.4 mg/dL (0.0-1.2); Bilirubin,Total 0.7 mg/dL (0.3-1.0); Blood Urea Nitrogen 9 mg/dL (8-23); Calcium 9.4 mg/dL (8.6-10.3); Carbon Dioxide 31 mEq/L (23-29); Chloride 97 mEq/L (98-107); Globulin 3.1 g/dL (2.4-3.5); Glucose 264 mg/dL (70-105); Lipase 323 Units/L (11-82); Osmolality,Calculated 284 (280-300); Potassium 4.2 mEq/L (3.5-5.1); Sodium 133 mEq/L (136-145); eGFR For African Americans > 60 (> 60); eGFR For Non-African Americans > 60 (> 60)
--- NOTE | 2017-11-10 04:50 | Emergency Department Note ---
Disposition Clinical Impression: Pancreatitis Qualifiers: Chronicity: chronic Pancreatitis type: unspecified pancreatitis type Qualified Code(s): K86.1 - Other chronic pancreatitis Abdominal pain Qualifiers: Abdominal location: generalized Qualified Code(s): R10.84 - Generalized abdominal pain Disposition: Admitted As Inpatient Condition: Good Referrals: Zackary Hale MD [Primary Care Provider] - Forms: ED Satisfaction Letter, Work/School Release Time of Disposition: 06:15 Abdominal Pain HPI - General Chief Complaint: ED Abdominal Pain Stated Complaint: abdominal pain Time Seen by Provider: 11/10/17 03:11 Source: patient Nursing Notes Reviewed: Yes Vital Signs Reviewed: Yes - History of Present Illness HPI Narrative: 62-year-old male presents with pain that he relates his pancreatitis. He mentions he has been evaluated before, pain is been some been unable to sleep and he denies any fevers, chills, chest pain, shortness of breath. Pain Scale: 10 - Related Data Home Medications Medication Instructions Recorded Confirmed Albuterol Sulfate [Albuterol 2 puff IH Q4HR PRN 05/17/15 10/30/17 Inhaler] Atorvastatin Calcium [Lipitor] 80 mg PO HS 05/17/15 10/30/17 Cholestyramine 4 gm PO BIDAC 05/17/15 10/30/17 Ezetimibe [Zetia] 10 mg PO DAILY 05/17/15 10/30/17 Metformin HCl [Glucophage] 1,000 mg PO BID 05/17/15 10/30/17 Tiotropium [Spiriva] 18 mcg IH DAILY 05/17/15 10/30/17 Perphenazine [Trilafon] 8 mg PO DAILY 09/28/15 10/30/17 Clopidogrel [Plavix] 75 mg PO DAILY 10/27/17 10/30/17 Furosemide [Lasix] 20 mg PO DAILY 10/27/17 10/30/17 Lisinopril [Zestril] 2.5 mg PO DAILY 10/27/17 10/30/17 Metoprolol Succinate [Toprol Xl] 25 mg PO DAILY 10/27/17 10/30/17 Previous Rx's Medication Instructions Recorded Glimepiride [Amaryl] 2 mg PO 0800 15 Days #15 tablet 11/02/17 Allergies Allergy/AdvReac Type Severity Reaction Status Date / Time loxapine [From Loxitane] Allergy See Verified 10/30/17 12:49 Comments betamethasone AdvReac Hives Verified 10/30/17 12:49 [From Lotrisone] clotrimazole [From Lotrisone] AdvReac Hives Verified 10/30/17 12:49 Sulfa (Sulfonamide AdvReac Hives Verified 10/30/17 12:49 Antibiotics) Review of Systems: All systems ED: reviewed and negative except as stated. Constitutional: Denies: fever, chills ENT ED: Denies: throat pain Cardiovascular: Denies: chest pain, palpitations Respiratory: Denies: dyspnea, wheezes Gastrointestinal: Denies: nausea, vomiting Musculoskeletal: Denies: back pain, neck pain Integumentary: Denies: rash Neurological: Denies: headache, weakness Endocrine: Denies: fatigue Hematological/Lymphatic: Denies: easy bleeding Allergic/Immunologic: Denies: facial swelling All systems ED: reviewed and negative except as stated. Review of Systems: As Per HPI Abdominal Pain PMH - Past Medical History Medical history: Reports: cancer, COPD, coronary artery disease, diabetes, myocardial infarction, other Male Surgical History: Reports: angioplasty/stent, herniorrhaphy, other Psychiatric history: Reports: no psych history - Social History Smoking status: Current every day smoker Alcohol use: Reports: none Drug use: Reports: none Physical Exam - General Limitations: no limitations General appearance: alert, in no apparent distress - Head Head exam: normocephalic - Eye Eye exam: Present: EOMI - ENT ENT exam: mucous membranes moist - Neck Neck exam: Present: full ROM - Chest Chest inspection: Present: symmetric chest wall rise - Respiratory Respiratory exam: Present: normal lung sounds bilaterally. Absent: respiratory distress - Cardiovascular Cardiovascular exam: Present: regular rate, normal rhythm - Abdominal Exam Abdominal exam: Present: soft, tenderness Abdominal tenderness: Present: diffuse - Extremities Exam Extremities exam: Present: normal inspection, full ROM, normal capillary refill - Neurological Exam Neurological exam: Present: alert - Psychiatric Psychiatric exam: Present: normal affect, normal mood - Skin Skin exam: Present: warm, dry, intact, normal color. Absent: rash, cyanosis, diaphoresis Course - Reevaluation(s) Reevaluation #1: CT findings consistent with acute pancreatitis or possible cholecystitis. Patient will likely benefit from a gallbladder ultrasound. Patient was discussed with Dr. Hunter who had face time with patient and agreed with workup and advised for admission. Patient's symptoms did not improve after [place]. His vitals remain stable. Patient was discussed with dayshift provider Radha Cardoza CNP, who due to shift change, will take over care of the patient and will arrange for admission.. Please see her documentation for details. Time: 06:14 Vital Signs Temperature 97.3 F L 11/10/17 03:16 Pulse Rate 115 11/10/17 03:16 Respiratory Rate 20 11/10/17 03:16 Blood Pressure 153/106 11/10/17 03:16 O2 Sat by Pulse Oximetry 93 11/10/17 03:16 Temperature 97.3 F L 11/10/17 03:16 Pulse Rate 82 11/10/17 06:01 Respiratory Rate 20 11/10/17 06:01 Blood Pressure 103/81 11/10/17 06:01 O2 Sat by Pulse Oximetry 93 11/10/17 03:16 Oxygen Delivery Oxygen Delivery Room Air Abdominal Pain - MDM Narrative Medical decision making narrative: Laboratory Tests 11/10/17 11/10/17 11/10/17 03:40 03:40 04:56 WBC 9.7 RBC 4.94 Hgb 15.0 Hct 46.0 MCV 93.1 MCH 30.4 MCHC 32.6 RDW 13.4 Plt Count 251 MPV 9.9 Immature Gran % 0.2 Seg Neutrophils % 73.7 Lymphocytes % 14.7 Monocytes % 8.5 Eosinophils % 2.4 Basophils % 0.5 Neutrophils # 7.2 Lymphocytes # 1.4 Monocytes # 0.8 Eosinophils # 0.2 Basophils # 0.1 Sodium 133 L Potassium 4.2 Chloride 97 L Carbon Dioxide 31 H BUN 9 Creatinine 0.72 Est GFR ( Amer) > 60 Est GFR (Non-Af Amer) > 60 BUN/Creatinine Ratio 13 Glucose 264 H Calculated Osmolality 284 Calcium 9.4 Total Bilirubin 0.7 Direct Bilirubin 0.3 H Indirect Bilirubin 0.4 AST 11 L ALT 9 Alkaline Phosphatase 76 Serum Total Protein 7.0 Albumin 3.9 Globulin 3.1 Albumin/Globulin Ratio 1.3 Triglycerides 96 Cholesterol 114 LDL Cholesterol, Calc 60 VLDL Cholesterol, Calc 19 HDL Cholesterol 35 L Cholesterol/HDL Ratio 3.3 Amylase 95 Lipase 323 H Urine Color Yellow Urine Clarity Clear Urine pH 6.0 Ur Specific [place] 1.021 Urine Protein Trace Urine Glucose (UA) 100 H Urine Ketones Negative Urine Blood Negative Urine Nitrite Negative Urine Bilirubin Negative Urine Urobilinogen Normal Ur Leukocyte Esterase Negative Urine Microscopic RBC 0-3 Urine Microscopic WBC 0-3 Ur Squamous Epith Cells Few Calcium Oxalate Crystal Present Urine Bacteria Few Hyaline Casts None Seen Urine Mucus Few Urine Yeast Few H Ur Culture Indicated? NO Abdomen/Pelvis CT 11/10/17 04:56 IMPRESSION: Acute pancreatitis. Inflammatory stranding adjacent to the gallbladder could also be due to pancreatitis though acute cholecystitis would have a similar appearance. D/ / Hola Bello MD / Hola Bello MD Interpreting Provider: Hola Bello MD - Medical Records Medical records reviewed: Yes I reviewed the patient's medical records. - Lab Data Lab results reviewed: Yes I reviewed the patient's lab results. Result diagrams: 11/10/17 03:40 11/10/17 03:40 Lab Results 11/10/17 11/10/17 11/10/17 Range/Units 03:40 03:40 04:56 WBC 9.7 (4.3-11.1) K/mcL RBC 4.94 (4.19-5.50) M/mcL Hgb 15.0 (12.9-16.9) g/dL Hct 46.0 (37.5-50.1) % MCV 93.1 (83.0-100.0) fL MCH 30.4 (28.0-33.3) pg MCHC 32.6 (31.6-35.5) g/dL RDW 13.4 (11.5-14.5) % Plt Count 251 (140-400) K/mcL MPV 9.9 (9.4-12.4) fL Immature Gran % 0.2 (0-4) % Seg Neutrophils % 73.7 % Lymphocytes % 14.7 % Monocytes % 8.5 % Eosinophils % 2.4 % Basophils % 0.5 % Neutrophils # 7.2 (1.6-8.9) K/mcL Lymphocytes # 1.4 (0.6-4.6) K/mcL Monocytes # 0.8 (0.0-1.3) K/mcL Eosinophils # 0.2 (0.0-0.6) K/mcL Basophils # 0.1 (0.0-0.2) K/mcL Sodium 133 L (136-145) mEq/L Potassium 4.2 (3.5-5.1) mEq/L Chloride 97 L (98-107) mEq/L Carbon Dioxide 31 H (23-29) mEq/L BUN 9 (8-23) mg/dL Creatinine 0.72 (0.70-1.30) mg/dL Est GFR ( Amer) > 60 (> 60) Est GFR (Non-Af Amer) > 60 (> 60) BUN/Creatinine Ratio 13 (6-26) Glucose 264 H (70-105) mg/dL Calculated Osmolality 284 (280-300) Calcium 9.4 (8.6-10.3) mg/dL Total Bilirubin 0.7 (0.3-1.0) mg/dL Direct Bilirubin 0.3 H (0.0-0.2) mg/dL Indirect Bilirubin 0.4 (0.0-1.2) mg/dL AST 11 L (13-39) Units/L ALT 9 (7-52) Units/L Alkaline Phosphatase 76 (34-104) Units/L Serum Total Protein 7.0 (6.4-8.9) g/dL Albumin 3.9 (3.5-5.7) g/dL Globulin 3.1 (2.4-3.5) g/dL Albumin/Globulin Ratio 1.3 (1.1-2.2) Triglycerides 96 (< 150) mg/dL Cholesterol 114 (< 200) mg/dL LDL Cholesterol, Calc 60 (0-99) mg/dL VLDL Cholesterol, Calc 19 (< 31) mg/dL HDL Cholesterol 35 L (40-59) mg/dL Cholesterol/HDL Ratio 3.3 (0-4.9) Amylase 95 (29-103) Units/L Lipase 323 H (11-82) Units/L Urine Color Yellow (Yellow) Urine Clarity Clear (Clear) Urine pH 6.0 (5.0-8.0) pH Units Ur Specific [place] 1.021 (1.010-1.025) Urine Protein Trace (Neg-Trace) mg/dL Urine Glucose (UA) 100 H (Normal) mg/dL Urine Ketones Negative (Negative) mg/dL Urine Blood Negative (Negative) Urine Nitrite Negative (Negative) Urine Bilirubin Negative (Negative) Urine Urobilinogen Normal (Normal) mg/dL Ur Leukocyte Esterase Negative (Negative) Urine Microscopic RBC 0-3 (0-3) per hpf Urine Microscopic WBC 0-3 (0-3) per hpf Ur Squamous Epith Cells Few (None-Few) per lpf Calcium Oxalate Crystal Present Urine Bacteria Few (None-Few) per hpf Hyaline Casts None Seen (None-Few) per lpf Urine Mucus Few (Few) Urine Yeast Few H (None Seen) per hpf Ur Culture Indicated? NO (NO) - Radiology Data Radiology results reviewed: Yes I reviewed the patient's radiology results.
[2017-11-10] MEDS ORDERED: *HR* HYDROcodone/Acet 5/325 mg TABLET PO ONE (05:09)
[2017-11-10 05:11] LABS: Bilirubin,Urine Negative (Negative); Blood,Urine Negative (Negative); Clarity,Urine Clear (Clear); Color,Urine Yellow (Yellow); Glucose,Urine (UA) 100 mg/dL (Normal); Ketones,Urine Negative (Negative); Leukocyte Esterase,Urine Negative (Negative); Nitrite,Urine Negative (Negative); Protein,Urine Trace mg/dL (Neg-Trace); Specific Gravity,Urine 1.021 (1.010-1.025); Urobilinogen,Urine Normal (Normal)
[2017-11-10 05:14] LABS: Hyaline Casts,Urine None Seen per lpf (None-Few); RBC,Urine 0-3 per hpf (0-3); Squamous Epithelial Cell,Urine Few per lpf (None-Few); WBC,Urine 0-3 per hpf (0-3)
[2017-11-10 05:26] LABS: Bacteria,Urine Few per hpf (None-Few); Calcium Oxalate Crystals,Urine Present; Mucus,Urine Few (Few); Yeast,Urine Few per hpf (None Seen)
[2017-11-10 05:46] LABS: Chol/HDL Ratio 3.3 (0-4.9); Cholesterol 114 mg/dL (< 200); HDL Cholesterol 35 mg/dL (40-59); LDL Cholesterol,Calculated 60 mg/dL (0-99); Triglycerides 96 mg/dL (< 150)
--- NOTE | 2017-11-10 06:14 | Emergency Department Note ---
Disposition Clinical Impression: Pancreatitis Qualifiers: Chronicity: chronic Pancreatitis type: unspecified pancreatitis type Qualified Code(s): K86.1 - Other chronic pancreatitis Disposition: Home, Self-Care Referrals: Zackary Hale MD [Primary Care Provider] - Forms: ED Satisfaction Letter, Work/School Release General Adult HPI - General Chief complaint: ED Abdominal Pain Stated complaint: abdominal pain Time Seen by Provider: 11/10/17 03:11 Source: patient - History of Present Illness Pain Scale: 10 - Related Data Home Medications Medication Instructions Recorded Confirmed Albuterol Sulfate [Albuterol 2 puff IH Q4HR PRN 05/17/15 10/30/17 Inhaler] Atorvastatin Calcium [Lipitor] 80 mg PO HS 05/17/15 10/30/17 Cholestyramine 4 gm PO BIDAC 05/17/15 10/30/17 Ezetimibe [Zetia] 10 mg PO DAILY 05/17/15 10/30/17 Metformin HCl [Glucophage] 1,000 mg PO BID 05/17/15 10/30/17 Tiotropium [Spiriva] 18 mcg IH DAILY 05/17/15 10/30/17 Perphenazine [Trilafon] 8 mg PO DAILY 09/28/15 10/30/17 Clopidogrel [Plavix] 75 mg PO DAILY 10/27/17 10/30/17 Furosemide [Lasix] 20 mg PO DAILY 10/27/17 10/30/17 Lisinopril [Zestril] 2.5 mg PO DAILY 10/27/17 10/30/17 Metoprolol Succinate [Toprol Xl] 25 mg PO DAILY 10/27/17 10/30/17 Previous Rx's Medication Instructions Recorded Glimepiride [Amaryl] 2 mg PO 0800 15 Days #15 tablet 11/02/17 Allergies Allergy/AdvReac Type Severity Reaction Status Date / Time loxapine [From Loxitane] Allergy See Verified 10/30/17 12:49 Comments betamethasone AdvReac Hives Verified 10/30/17 12:49 [From Lotrisone] clotrimazole [From Lotrisone] AdvReac Hives Verified 10/30/17 12:49 Sulfa (Sulfonamide AdvReac Hives Verified 10/30/17 12:49 Antibiotics) Past Medical History - Past Medical History Medical history: Reports: cancer, COPD, coronary artery disease, diabetes, myocardial infarction, other Surgical history: Reports: cataract, herniorrhaphy, other Psychiatric history: Reports: no psych history - Social History Smoking Status: Current every day smoker Smokeless Tobacco Status: No Alcohol use: Reports: none Drug use: Reports: none Physical Exam - General General appearance: alert, in no apparent distress Course Vital Signs Temperature 97.3 F L 11/10/17 03:16 Pulse Rate 115 11/10/17 03:16 Respiratory Rate 20 11/10/17 03:16 Blood Pressure 153/106 11/10/17 03:16 O2 Sat by Pulse Oximetry 93 11/10/17 03:16 Temperature 97.3 F L 11/10/17 03:16 Pulse Rate 82 11/10/17 06:01 Respiratory Rate 20 11/10/17 06:01 Blood Pressure 103/81 11/10/17 06:01 O2 Sat by Pulse Oximetry 93 11/10/17 03:16 Oxygen Delivery Oxygen Delivery Room Air Medical Decision Making - Lab Data Result diagrams: 11/10/17 03:40 11/10/17 03:40 Lab Results 11/10/17 11/10/17 11/10/17 Range/Units 03:40 03:40 04:56 WBC 9.7 (4.3-11.1) K/mcL RBC 4.94 (4.19-5.50) M/mcL Hgb 15.0 (12.9-16.9) g/dL Hct 46.0 (37.5-50.1) % MCV 93.1 (83.0-100.0) fL MCH 30.4 (28.0-33.3) pg MCHC 32.6 (31.6-35.5) g/dL RDW 13.4 (11.5-14.5) % Plt Count 251 (140-400) K/mcL MPV 9.9 (9.4-12.4) fL Immature Gran % 0.2 (0-4) % Seg Neutrophils % 73.7 % Lymphocytes % 14.7 % Monocytes % 8.5 % Eosinophils % 2.4 % Basophils % 0.5 % Neutrophils # 7.2 (1.6-8.9) K/mcL Lymphocytes # 1.4 (0.6-4.6) K/mcL Monocytes # 0.8 (0.0-1.3) K/mcL Eosinophils # 0.2 (0.0-0.6) K/mcL Basophils # 0.1 (0.0-0.2) K/mcL Sodium 133 L (136-145) mEq/L Potassium 4.2 (3.5-5.1) mEq/L Chloride 97 L (98-107) mEq/L Carbon Dioxide 31 H (23-29) mEq/L BUN 9 (8-23) mg/dL Creatinine 0.72 (0.70-1.30) mg/dL Est GFR ( Amer) > 60 (> 60) Est GFR (Non-Af Amer) > 60 (> 60) BUN/Creatinine Ratio 13 (6-26) Glucose 264 H (70-105) mg/dL Calculated Osmolality 284 (280-300) Calcium 9.4 (8.6-10.3) mg/dL Total Bilirubin 0.7 (0.3-1.0) mg/dL Direct Bilirubin 0.3 H (0.0-0.2) mg/dL Indirect Bilirubin 0.4 (0.0-1.2) mg/dL AST 11 L (13-39) Units/L ALT 9 (7-52) Units/L Alkaline Phosphatase 76 (34-104) Units/L Serum Total Protein 7.0 (6.4-8.9) g/dL Albumin 3.9 (3.5-5.7) g/dL Globulin 3.1 (2.4-3.5) g/dL Albumin/Globulin Ratio 1.3 (1.1-2.2) Triglycerides 96 (< 150) mg/dL Cholesterol 114 (< 200) mg/dL LDL Cholesterol, Calc 60 (0-99) mg/dL VLDL Cholesterol, Calc 19 (< 31) mg/dL HDL Cholesterol 35 L (40-59) mg/dL Cholesterol/HDL Ratio 3.3 (0-4.9) Amylase 95 (29-103) Units/L Lipase 323 H (11-82) Units/L Urine Color Yellow (Yellow) Urine Clarity Clear (Clear) Urine pH 6.0 (5.0-8.0) pH Units Ur Specific [place] 1.021 (1.010-1.025) Urine Protein Trace (Neg-Trace) mg/dL Urine Glucose (UA) 100 H (Normal) mg/dL Urine Ketones Negative (Negative) mg/dL Urine Blood Negative (Negative) Urine Nitrite Negative (Negative) Urine Bilirubin Negative (Negative) Urine Urobilinogen Normal (Normal) mg/dL Ur Leukocyte Esterase Negative (Negative) Urine Microscopic RBC 0-3 (0-3) per hpf Urine Microscopic WBC 0-3 (0-3) per hpf Ur Squamous Epith Cells Few (None-Few) per lpf Calcium Oxalate Crystal Present Urine Bacteria Few (None-Few) per hpf Hyaline Casts None Seen (None-Few) per lpf Urine Mucus Few (Few) Urine Yeast Few H (None Seen) per hpf Ur Culture Indicated? NO (NO) Attestation Statement - Attestation Attestation: I examined this patient and my medical decision-making was reviewed with the Resident Physician. I agree with the documented findings, disposition and treatment plan as described except to the extent set forth below. Findings consistent with acute pancreatitis. We will admit for gallbladder ultrasound, pain control, IV fluids, further management of pancreatitis.
[2017-11-10 07:14] LABS: Troponin I 0.05 ng/mL (< 0.04)
--- NOTE | 2017-11-10 08:32 | Emergency Department Note ---
Disposition Clinical Impression: Pancreatitis Qualifiers: Chronicity: chronic Pancreatitis type: unspecified pancreatitis type Qualified Code(s): K86.1 - Other chronic pancreatitis Abdominal pain Qualifiers: Abdominal location: generalized Qualified Code(s): R10.84 - Generalized abdominal pain Disposition: Admitted As Inpatient Condition: Good Referrals: Zackary Hale MD [Primary Care Provider] - Forms: ED Satisfaction Letter, Work/School Release General Adult HPI - General Chief complaint: ED Abdominal Pain Stated complaint: abdominal pain Time Seen by Provider: 11/10/17 03:11 Source: patient Limitations: no limitations - History of Present Illness Pain Scale: 10 - Related Data Home Medications Medication Instructions Recorded Confirmed Albuterol Sulfate [Albuterol 2 puff IH Q4HR PRN 05/17/15 11/10/17 Inhaler] Atorvastatin Calcium [Lipitor] 80 mg PO HS 05/17/15 11/10/17 Cholestyramine 4 gm PO BIDAC 05/17/15 11/10/17 Ezetimibe [Zetia] 10 mg PO DAILY 05/17/15 11/10/17 Metformin HCl [Glucophage] 1,000 mg PO BID 05/17/15 11/10/17 Tiotropium [Spiriva] 18 mcg IH DAILY 05/17/15 11/10/17 Perphenazine [Trilafon] 8 mg PO DAILY 09/28/15 11/10/17 Clopidogrel [Plavix] 75 mg PO DAILY 10/27/17 11/10/17 Furosemide [Lasix] 20 mg PO DAILY 10/27/17 11/10/17 Lisinopril [Zestril] 2.5 mg PO DAILY 10/27/17 11/10/17 Metoprolol Succinate [Toprol Xl] 25 mg PO DAILY 10/27/17 11/10/17 Lipase/Protease/Amylase [Creon Dr 1 cap PO BID 11/10/17 11/10/17 12,000 Units Capsule] Promethazine [Phenergan] 25 mg PO BID 11/10/17 11/10/17 Warfarin [Coumadin] 7.5 mg PO DAILY 11/10/17 11/10/17 Previous Rx's Medication Instructions Recorded Glimepiride [Amaryl] 2 mg PO 0800 15 Days #15 tablet 11/02/17 Allergies Allergy/AdvReac Type Severity Reaction Status Date / Time loxapine [From Loxitane] Allergy See Verified 10/30/17 12:49 Comments betamethasone AdvReac Hives Verified 10/30/17 12:49 [From Lotrisone] clotrimazole [From Lotrisone] AdvReac Hives Verified 10/30/17 12:49 Sulfa (Sulfonamide AdvReac Hives Verified 10/30/17 12:49 Antibiotics) Past Medical History - Past Medical History Medical history: Reports: cancer, COPD, coronary artery disease, diabetes, myocardial infarction, other Surgical history: Reports: cataract, herniorrhaphy, other Psychiatric history: Reports: no psych history - Social History Smoking Status: Current every day smoker Smokeless Tobacco Status: No Alcohol use: Reports: none Drug use: Reports: none Physical Exam - General Limitations: no limitations General appearance: alert, in no apparent distress Course Vital Signs Temperature 97.3 F L 11/10/17 03:16 Pulse Rate 115 11/10/17 03:16 Respiratory Rate 20 11/10/17 03:16 Blood Pressure 153/106 11/10/17 03:16 O2 Sat by Pulse Oximetry 93 11/10/17 03:16 Temperature 97.3 F L 11/10/17 03:16 Pulse Rate 82 11/10/17 07:57 Respiratory Rate 18 11/10/17 07:57 Blood Pressure 108/72 11/10/17 07:57 O2 Sat by Pulse Oximetry 95 11/10/17 07:57 Oxygen Delivery Oxygen Delivery Nasal Cannula Medical Decision Making - [facility] Narrative Medical decision making narrative: 62 year old male with history of diabetes and PA presents with constant upper abdominal pain since this morning. Physical exam: upper abd tender. Labs: slightly elevated lipase, slightly elevated Troponin. EKG unremarkable. Abdomen ct indicated acute pancreatitis. Pt will be admit to hospital for acute pancreatitis, cardiology consulted, will see the patient in hospital. - Lab Data Lab results reviewed: Yes I reviewed the patient's lab results. Result diagrams: 11/10/17 03:40 11/10/17 03:40 Lab Results 11/10/17 11/10/17 11/10/17 Range/Units 03:40 03:40 04:56 WBC 9.7 (4.3-11.1) K/mcL RBC 4.94 (4.19-5.50) M/mcL Hgb 15.0 (12.9-16.9) g/dL Hct 46.0 (37.5-50.1) % MCV 93.1 (83.0-100.0) fL MCH 30.4 (28.0-33.3) pg MCHC 32.6 (31.6-35.5) g/dL RDW 13.4 (11.5-14.5) % Plt Count 251 (140-400) K/mcL MPV 9.9 (9.4-12.4) fL Immature Gran % 0.2 (0-4) % Seg Neutrophils % 73.7 % Lymphocytes % 14.7 % Monocytes % 8.5 % Eosinophils % 2.4 % Basophils % 0.5 % Neutrophils # 7.2 (1.6-8.9) K/mcL Lymphocytes # 1.4 (0.6-4.6) K/mcL Monocytes # 0.8 (0.0-1.3) K/mcL Eosinophils # 0.2 (0.0-0.6) K/mcL Basophils # 0.1 (0.0-0.2) K/mcL Sodium 133 L (136-145) mEq/L Potassium 4.2 (3.5-5.1) mEq/L Chloride 97 L (98-107) mEq/L Carbon Dioxide 31 H (23-29) mEq/L BUN 9 (8-23) mg/dL Creatinine 0.72 (0.70-1.30) mg/dL Est GFR ( Amer) > 60 (> 60) Est GFR (Non-Af Amer) > 60 (> 60) BUN/Creatinine Ratio 13 (6-26) Glucose 264 H (70-105) mg/dL Calculated Osmolality 284 (280-300) Calcium 9.4 (8.6-10.3) mg/dL Total Bilirubin 0.7 (0.3-1.0) mg/dL Direct Bilirubin 0.3 H (0.0-0.2) mg/dL Indirect Bilirubin 0.4 (0.0-1.2) mg/dL AST 11 L (13-39) Units/L ALT 9 (7-52) Units/L Alkaline Phosphatase 76 (34-104) Units/L Troponin I 0.05 H* (< 0.04) ng/mL Serum Total Protein 7.0 (6.4-8.9) g/dL Albumin 3.9 (3.5-5.7) g/dL Globulin 3.1 (2.4-3.5) g/dL Albumin/Globulin Ratio 1.3 (1.1-2.2) Triglycerides 96 (< 150) mg/dL Cholesterol 114 (< 200) mg/dL LDL Cholesterol, Calc 60 (0-99) mg/dL VLDL Cholesterol, Calc 19 (< 31) mg/dL HDL Cholesterol 35 L (40-59) mg/dL Cholesterol/HDL Ratio 3.3 (0-4.9) Amylase 95 (29-103) Units/L Lipase 323 H (11-82) Units/L Urine Color Yellow (Yellow) Urine Clarity Clear (Clear) Urine pH 6.0 (5.0-8.0) pH Units Ur Specific [place] 1.021 (1.010-1.025) Urine Protein Trace (Neg-Trace) mg/dL Urine Glucose (UA) 100 H (Normal) mg/dL Urine Ketones Negative (Negative) mg/dL Urine Blood Negative (Negative) Urine Nitrite Negative (Negative) Urine Bilirubin Negative (Negative) Urine Urobilinogen Normal (Normal) mg/dL Ur Leukocyte Esterase Negative (Negative) Urine Microscopic RBC 0-3 (0-3) per hpf Urine Microscopic WBC 0-3 (0-3) per hpf Ur Squamous Epith Cells Few (None-Few) per lpf Calcium Oxalate Crystal Present Urine Bacteria Few (None-Few) per hpf Hyaline Casts None Seen (None-Few) per lpf Urine Mucus Few (Few) Urine Yeast Few H (None Seen) per hpf Ur Culture Indicated? NO (NO) - Radiology Data Radiology results reviewed: Yes I reviewed the patient's radiology results.
[2017-11-10] MEDS ORDERED: Naloxone 0.4 MG/ML INJ IVP PRN (09:44)
[2017-11-10] MEDS ORDERED: D5% in Water 1,000 ML IVC PRN (09:51)
[2017-11-10] MEDS ORDERED: Dextrose Gel 15 GM/37.5 ML TUBE PO PRN ×2 (09:51)
[2017-11-10] MEDS ORDERED: *HR* Dextrose 50 % in Water (Syg) 50 ML SYRINGE IVP PRN (09:51)
[2017-11-10] MEDS ORDERED: 0.9 % Sodium Chloride 1,000 ML IVC SCH (10:00)
[2017-11-10 10:26] LABS: INR 1.3; Prothrombin Time 13.7 Seconds (9.4-12.1)
[2017-11-10] MEDS: Insulin LISPRO 300 UNITS/3 ML VIAL SQ SCH ×2 (13:56→17:55)
[2017-11-10] MEDS: Cholestyramine 4 GM POWD.PACK PO SCH ×2 (13:56→16:08)
[2017-11-10] MEDS: Metoprolol XL (24 HR) Succ 25 MG TAB.ER.24H PO SCH (14:22)
[2017-11-10] MEDS: *HR* HYDROcodone/Acet 5/325 mg TABLET PO PRN ×2 (14:22→23:09)
--- NOTE | 2017-11-10 14:33 | Internal Med History&Physical ---
Date of Encounter: 11/10/17 Time of Encounter: 10:00 Internal Medicine - H&P: HPI Chief complaint: Abdominal pain Admitted From: Emergency Dept History of present illness: Mr. Emmanuel is a 62 year old male with past medical history of diabetes mellitus, hypertension, history of prior myocardial infarction and history of prior pancreatitis episode who presents to the ER with chief complaint of diffuse abdominal that started bothering him over the last 24-48 hours. Patient states that he has had multiple abdominal surgeries including hernia repairs in the past and this abdominal pain reminds him of pancreatitis. The patient states that the patient's pain is diffuse and is about 8/10 in severity , described as sharp and colicky, does not radiate to the back, was not relieved with [id number] Tylenol or Motrin and hence he decided to come into the hospital. He states that he has felt some nausea but has not really thrown up and has been able to keep oral medications down. He feels he got in or call in the ER department which really helped his pain and he would like to continue the same. He denies any fever or chills. The ER the patient had an elevated lipase of [address] scan evidence of acute pancreatitis. He has been admitted for further management of this diagnosis Past Med Surg Social Fam HX - Past Medical History Medical history: cancer, COPD, coronary artery disease, diabetes, myocardial infarction, other Psychiatric history: no psych history - Past Surgical History Surgical History: angioplasty/stent, cataract, herniorrhaphy, other - Social History Smoking Status: Current every day smoker Packs per day: 1 pack/day Smokeless Tobacco Status: No Alcohol use: none Drug use: none - Family History Father Adopted: No Living Status: Hx Family Cardiac Disorders: Yes Mother Living Status: Hx Family Cardiac Disorders: No Hx Family Respiratory Disorders: No Hx Family Cancer: Yes Internal Medicine - H&P: Meds Albuterol Sulfate [Albuterol Inhaler] 2 puff IH Q4HR PRN 05/17/15 [History] Atorvastatin Calcium [Lipitor] 80 mg PO HS 05/17/15 [History] Cholestyramine 4 gm PO BIDAC 05/17/15 [History] Ezetimibe [Zetia] 10 mg PO DAILY 05/17/15 [History] Metformin HCl [Glucophage] 1,000 mg PO BID 05/17/15 [History] Tiotropium [Spiriva] 18 mcg IH DAILY 05/17/15 [History] Perphenazine [Trilafon] 8 mg PO DAILY 09/28/15 [History] Clopidogrel [Plavix] 75 mg PO DAILY 10/27/17 [History] Furosemide [Lasix] 20 mg PO DAILY 10/27/17 [History] Lisinopril [Zestril] 2.5 mg PO DAILY 10/27/17 [History] Metoprolol Succinate [Toprol Xl] 25 mg PO DAILY 10/27/17 [History] Glimepiride [Amaryl] 2 mg PO 0800 15 Days #15 tablet 11/02/17 [Rx] Lipase/Protease/Amylase [Omid Dr 12,000 Units Capsule] 1 cap PO BID 11/10/17 [ History] Promethazine [Phenergan] 25 mg PO BID 11/10/17 [History] Warfarin [Coumadin] 7.5 mg PO DAILY 11/10/17 [History] 3 Allergy/AdvReac Type Severity Reaction Status Date / Time loxapine [From Loxitane] Allergy See Verified 10/30/17 12:49 Comments betamethasone AdvReac Hives Verified 10/30/17 12:49 [From Lotrisone] clotrimazole [From Lotrisone] AdvReac Hives Verified 10/30/17 12:49 Sulfa (Sulfonamide AdvReac Hives Verified 10/30/17 12:49 Antibiotics) All Systems PM: A 10-system review of systems was performed and is negative for pertinent findings except as documented above in the HPI. - Constitutional Vitals: Temp Pulse Resp BP Pulse Ox 97.3 F L 85 14 104/72 98 11/10/17 03:16 11/10/17 10:26 11/10/17 10:26 11/10/17 10:26 11/10/17 10:40 Exam: GENERAL: Alert, moderate distress, cooperative EYES: PERRLA, EOMI EARS: External ears normal, canals clear OROPHARYNX: Lips, mucosa, and tongue normal. Teeth and gums normal. Oropharynx normal. NECK: No jugulovenous distention, No carotid bruits, Carotid pulse normal contour, Supple LUNGS: Lungs clear to auscultation, Good diaphragmatic excursion CARDIAC: Normal S1 and S2; no rubs, murmurs, or gallops ABDOMEN: Abdomen soft, diffusely tender to palpation but no guarding or rigidity. Bowel sounds heard., Does have left inguinal hernia which is reducible EXTREMITIES: Extremities normal, no deformities, edema, clubbing or skin discoloration. Good capillary refill., No ulcers NEURO: Gait normal. Reflexes normal and symmetric. Sensation grossly intact, Cranial nerves II-XII intact PULSES: 2+ radial, 2+ carotid Rest of the exam is non contributory Internal Med - H&P Results - Labs CBC & Chem 7: 11/10/17 03:40 11/10/17 03:40 Labs: Cardiac Enzymes 11/10/17 Range/Units 10:09 Troponin I 0.05 H* (< 0.04) ng/mL - Impressions ITS Impressions Gallbladder Ultrasound 11/10/17 10:50 IMPRESSION: Sludge within the gallbladder. No sonographic evidence of acute cholecystitis. D/ / 11/10/2017 12:47:11 Franco Dodd MD / [facility] Interpreting Provider: Franco Dodd MD - VTE Reasons for not Prescribing Prophylaxis: Not indicated-Anticoagulated or INR therapeutic - Assessment and plan (1) Acute pancreatitis Current Visit: Yes Status: Acute Assessment and plan: Most likely acute pancreatitis from gallbladder etiology. There is some evidence of pericholecystic inflammation as well on the CAT scan and we will obtain a gallbladder ultrasound to better delineate this. He may benefit from a surgical opinion should there be evidence of gallbladder stones The patient nothing by mouth at this time except medications. Continue hydration with normal saline. We will start with clear liquids later on tonight or tomorrow depending on how his pain is tolerated. Pain control seems appropriate with oral opiates and we will continue the same at this point. Qualifiers: Pancreatitis type: unspecified pancreatitis type Acute pancreatitis complication: unspecified Qualified Code(s): K85.90 - Acute pancreatitis without necrosis or infection, unspecified (2) Type II diabetes mellitus Current Visit: Yes Status: Acute Assessment and plan: Hold oral hypoglycemics. 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 insulin use: with termite renewal inspector use Diabetes mellitus complication status: without complication Qualified Code(s): E11.9 - Type 2 diabetes mellitus without complications; Z79.4 - termite treater helper (current) use of insulin; Z79.4 - [facility] (current) use of insulin; Z79.4 - [facility] ( current) use of insulin; Z79.4 - termite treater helper (current) use of insulin (3) Obesity (BMI 35.0-39.9 without comorbidity) Current Visit: No Status: Chronic Assessment and plan: Dietary education given to the patient (4) CAD (coronary artery disease) Current Visit: Yes Status: Acute Assessment and plan: Stable coronary artery disease history. Continue anticoagulation, Plavix aspirin Initial troponin was 0.05 and repeat is also the same. Doubt acute coronary syndrome going on at this point. Patient denies any chest pain, shortness of breath at this point. Qualifiers: Coronary Disease-Associated Artery/Lesion type: [place] artery [place] vs. transplanted heart: [place] heart Associated angina: without angina Qualified Code(s): I25.10 - Atherosclerotic heart disease of [place] coronary artery without angina pectoris - Time Spent With Patient Total time spent is greater than 50% in coordination of care (as documented) at patient's floor/unit and/or counseling patient: Greater than 35 minutes
[2017-11-10] MEDS ORDERED: *HR* Warfarin 7.5 MG TABLET PO SCH (18:00)
[2017-11-10 20:08] LABS: Estimated Average Glucose 209 mg/dl; Hemoglobin A1C 8.9 %
[2017-11-11] MEDS: Insulin LISPRO 300 UNITS/3 ML VIAL SQ SCH ×3 (00:10→17:29)
[2017-11-11 01:28] LABS: Hematocrit 42.2 % (37.5-50.1); Hemoglobin 13.5 g/dL (12.9-16.9); Mean Corpuscular Volume 93.8 fL (83.0-100.0); Mean Platelet Volume 10.1 fL (9.4-12.4); Platelet Count 234 K/mcL (140-400); Red Cell Distribution Width 13.6 % (11.5-14.5)
[2017-11-11 01:49] LABS: BUN/Creatinine Ratio 14 (6-26); Blood Urea Nitrogen 9 mg/dL (8-23); Calcium 8.8 mg/dL (8.6-10.3); Carbon Dioxide 30 mEq/L (23-29); Chloride 101 mEq/L (98-107); Glucose 125 mg/dL (70-105); Osmolality,Calculated 284 (280-300); Potassium 4.2 mEq/L (3.5-5.1); Sodium 137 mEq/L (136-145); eGFR For African Americans > 60 (> 60); eGFR For Non-African Americans > 60 (> 60)
[2017-11-11] MEDS: Tiotropium 18 MCG inhalation IH SCH (08:17)
[2017-11-11] MEDS: Furosemide 20 MG TABLET PO SCH (08:18)
[2017-11-11] MEDS: Metoprolol XL (24 HR) Succ 25 MG TAB.ER.24H PO SCH (08:18)
[2017-11-11] MEDS: Cholestyramine 4 GM POWD.PACK PO SCH ×2 (08:18→17:34)
[2017-11-11 08:40] LABS: Amylase 55 Units/L (29-103); Lipase 138 Units/L (11-82)
[2017-11-11] MEDS ORDERED: Insulin LISPRO 300 UNITS/3 ML VIAL SQ SCH ×3 (11:30→21:00)
[2017-11-11] MEDS: *HR* HYDROcodone/Acet 5/325 mg TABLET PO PRN ×2 (15:31→21:10)
--- NOTE | 2017-11-11 16:21 | Internal Med Progress Note ---
Date of Encounter: 11/11/17 Time of Encounter: 16:19 - Assessment and plan (1) Acute pancreatitis Current Visit: Yes Status: Acute Assessment and plan: Improving clinically. Pain is better controlled. Will start patient on clears and advance diet as tolerated. Ultrasound of the gallbladder does not show any gallstones. Mild biliary sludge present. Discussed with surgery. Given that he does not have any gallstones, they did not recommend any urgent laparoscopic cholecystectomy. Patient can be evaluated as outpatient. Will place referral at time of discharge. Other possible cause for acute pancreatitis include chronic statin therapy. Patient is on Lipitor. His lipid profile shows a total cholesterol of 114 with LDL of 60. As such recommend stopping Lipitor as it can cause pancreatitis. Qualifiers: Pancreatitis type: idiopathic Acute pancreatitis complication: no infection or necrosis Qualified Code(s): K85.00 - Idiopathic acute pancreatitis without necrosis or infection (2) Obesity (BMI 35.0-39.9 without comorbidity) Current Visit: Yes Status: Chronic (3) Type II diabetes mellitus Current Visit: Yes Status: Chronic Assessment and plan: Blood sugars were well controlled this morning. As the patient is started on diet, will place him diabetic diet. We will increase insulin regimen accordingly. Qualifiers: Diabetes mellitus terminal block assembler insulin use: without longterm use Diabetes mellitus complication status: without complication Qualified Code(s): E11.9 - Type 2 diabetes mellitus without complications (4) CAD (coronary artery disease) Current Visit: Yes Status: Chronic Assessment and plan: Continue Plavix, Toprol Qualifiers: Coronary Disease-Associated Artery/Lesion type: [place] artery [place] vs. transplanted heart: [place] heart Associated angina: without angina Qualified Code(s): I25.10 - Atherosclerotic heart disease of [place] coronary artery without angina pectoris - Time Spent With Patient Total time spent is greater than 50% in coordination of care (as documented) at patient's floor/unit and/or counseling patient: - Subjective Interval history: Patient is awake and alert. He evaluated him earlier today and he was feeling better. Pain in his abdomen had improved. No longer having nausea or vomiting. He was requiring oral pain medications to control his pain. - Constitutional Vitals: Temp Pulse Resp BP Pulse Ox 97.7 F 67 18 118/77 98 11/11/17 15:31 11/11/17 15:31 11/11/17 15:31 11/11/17 15:31 11/11/17 15:31 General appearance: Present: cooperative, A&O X 3, pleasant, obese, answers questions appropriately - Neck Neck exam general surgery: Present: supple, trachea midline. Absent: lymphadenopathy - Respiratory Respiratory exam: Present: CTAB. Absent: accessory muscle use, rales, rhonchi, wheezes - Cardiovascular Cardiovascular exam: Present: RRR, +S1, +S2. Absent: diastolic murmur, gallop, rubs, systolic murmur - GI/Abdominal GI/Abdominal exam: Present: normal bowel sounds, soft, no peritoneal signs. Absent: distended, tenderness - Extremities Exam Extremities exam: Present: warm, radial pulses palpable and symmetrical. Absent : calf tenderness, cyanotic, pedal edema - Neurological Exam Neurological exam: Present: CN II-XII intact, oriented X3, no focal deficits. Absent: facial droop, speech deficit - Skin Skin exam: Present: dry, intact Internal Medicine: Result - Labs CBC & Chem 7: 11/11/17 00:49 11/11/17 00:49 Labs: Short CBC 11/11/17 Range/Units 00:49 WBC 8.4 (4.3-11.1) K/mcL Hgb 13.5 D (12.9-16.9) g/dL Hct 42.2 (37.5-50.1) % Plt Count 234 (140-400) K/mcL [facility] 11/11/17 00:49 Sodium 137 Potassium 4.2 Chloride 101 Carbon Dioxide 30 H BUN 9 Creatinine 0.65 L Glucose 125 H Calcium 8.8 Cardiac Enzymes 11/10/17 11/10/17 Range/Units 15:53 22:21 Troponin I 0.05 H* 0.04 H* (< 0.04) ng/mL - ABG Interpretation ABG results: PT/INR, D-dimer PT 13.7 Seconds (9.4-12.1) H 11/10/17 10:09 - VTE Reasons for not Prescribing Prophylaxis: Not indicated-Anticoagulated or INR therapeutic Consult Discharge Plan - Plan Referrals: Zackary Hale MD [Primary Care Provider] -
[2017-11-11] MEDS ORDERED: Warfarin perPT PO PRN (18:00)
[2017-11-11 18:25] LABS: INR 1.4; Prothrombin Time 15.5 Seconds (9.4-12.1)
[2017-11-11] MEDS ORDERED: Insulin DETEMIR 100 UNIT/ML X5UNITS SQ SCH (21:00)
[2017-11-11] MEDS ORDERED: *HR* Warfarin 7.5 MG TABLET PO ONE (22:30)
[2017-11-12 06:02] LABS: INR 1.5; Prothrombin Time 16.6 Seconds (9.4-12.1)
[2017-11-12] MEDS: Tiotropium 18 MCG inhalation IH SCH (07:43)
[2017-11-12] MEDS: Furosemide 20 MG TABLET PO SCH (08:51)
[2017-11-12] MEDS: Cholestyramine 4 GM POWD.PACK PO SCH (08:52)
[2017-11-12] MEDS: Metoprolol XL (24 HR) Succ 25 MG TAB.ER.24H PO SCH (08:52)
[2017-11-12] MEDS: Insulin LISPRO 300 UNITS/3 ML VIAL SQ SCH ×2 (08:52→11:18)
[2017-11-12 11:08] VITALS: BP 104/71
--- NOTE | 2017-11-12 11:46 | Discharge Summary ---
- NOTES TO OUTPATIENT PROVIDER Notes to Outpatient Provider: Patient admitted with acute pancreatitis. Etiology uncertain. Patient is on statin with normal lipid profile. As such we will hold this medication as it can cause pancreatitis. Patient will follow- up with surgery as outpatient as this is his second bout of pancreatitis within this past month. No gallstones. Orders not resulted at time of discharge: Pending orders 11/13/17 04:00 INR/PT [Prothrombin Time INR] [COAG] AM 0400 11/14/17 04:00 INR/PT [Prothrombin Time INR] [COAG] AM 0400 Date of Encounter: 11/12/17 Time of Encounter: 11:43 - Discharge Diagnosis (1) Acute pancreatitis Priority: Primary Status: Acute Qualifiers: Pancreatitis type: idiopathic Acute pancreatitis complication: no infection or necrosis Qualified Code(s): K85.00 - Idiopathic acute pancreatitis without necrosis or infection (2) Obesity (BMI 35.0-39.9 without comorbidity) Priority: Secondary Status: Chronic (3) Type II diabetes mellitus Priority: Secondary Status: Chronic Qualifiers: Diabetes mellitus ad terminal makeup operator insulin use: without ad terminal makeup operator use Diabetes mellitus complication status: without complication Qualified Code(s): E11.9 - Type 2 diabetes mellitus without complications (4) CAD (coronary artery disease) Priority: Secondary Status: Chronic Qualifiers: Coronary Disease-Associated Artery/Lesion type: [place] artery [place] vs. transplanted heart: [place] heart Associated angina: without angina Qualified Code(s): I25.10 - Atherosclerotic heart disease of [place] coronary artery without angina pectoris Hospital course: Mr. Emmanuel is a 62 year old male Patient with history of diabetes mellitus, hypertension, prior [place] and was admitted here with acute pancreatitis. Etiology uncertain. This is his second episode within the past month. He may have underlying chronic pancreatitis with intermittent flareup. Patient does take statin for coronary artery disease. Statins can cause acute pancreatitis answer as such I will hold this medication at this time. He does have a normal lipid profile. Ultrasound of the gallbladder did not show any gallstones. However I discussed his case with surgery and they recommended outpatient follow -up as this is his second bout of pancreatitis within this past month. Patient does take cholestyramine which can interact and decrease absorption of common in. As such I recommend taking Coumadin at least 1-2 hours prior to taking cholestyramine. Discharge discussed with: patient, nurse - Time Spent with Patient Total time spent providing and/or coordinating discharge services: Less than 30 minutes (25 min) - Discharge Medications Home Medications: Albuterol Sulfate [Albuterol Inhaler] 2 puff IH Q4HR PRN 05/17/15 [History] Cholestyramine 4 gm PO BIDAC 05/17/15 [History] Ezetimibe [Zetia] 10 mg PO DAILY 05/17/15 [History] Metformin HCl [Glucophage] 1,000 mg PO BID 05/17/15 [History] Tiotropium [Spiriva] 18 mcg IH DAILY 05/17/15 [History] Perphenazine [Trilafon] 8 mg PO DAILY 09/28/15 [History] Clopidogrel [Plavix] 75 mg PO DAILY 10/27/17 [History] Furosemide [Lasix] 20 mg PO DAILY 10/27/17 [History] Lisinopril [Zestril] 2.5 mg PO DAILY 10/27/17 [History] Metoprolol Succinate [Toprol Xl] 25 mg PO DAILY 10/27/17 [History] Glimepiride [Amaryl] 2 mg PO 0800 15 Days #15 tablet 11/02/17 [Rx] Lipase/Protease/Amylase [Creon Dr 12,000 Units Capsule] 1 cap PO BID 11/10/17 [ History] Promethazine [Phenergan] 25 mg PO BID 11/10/17 [History] Warfarin [Coumadin] 7.5 mg PO DAILY #0 11/12/17 [Rx] Allergies/Adverse Reactions: 3 Allergy/AdvReac Type Severity Reaction Status Date / Time loxapine [From Loxitane] Allergy See Verified 10/30/17 12:49 Comments betamethasone AdvReac Hives Verified 10/30/17 12:49 [From Lotrisone] clotrimazole [From Lotrisone] AdvReac Hives Verified 10/30/17 12:49 Sulfa (Sulfonamide AdvReac Hives Verified 10/30/17 12:49 Antibiotics) Date of admission: 11/11/17 16:25 Primary care physician: Zackary Hale MD Consults: 11/12/17 10:28 Consult to Fire Assistant [CONS] Routine Reason for SW Consult: discharge planning Discharging clinician: Srujan Ameda Anticipated date of discharge: 11/12/17 - Constitutional Vitals: Temp Pulse Resp BP Pulse Ox 98.3 F 71 16 104/71 99 11/12/17 11:04 11/12/17 11:04 11/12/17 11:04 11/12/17 11:04 11/12/17 11:04 General appearance: Present: cooperative, A&O X 3, pleasant, obese, answers questions appropriately - Neck Neck exam general surgery: Present: supple, trachea midline. Absent: lymphadenopathy - Respiratory Respiratory exam: Present: CTAB. Absent: accessory muscle use, rales, rhonchi, wheezes - Cardiovascular Cardiovascular exam: Present: RRR, +S1, +S2. Absent: diastolic murmur, gallop, rubs, systolic murmur - GI/Abdominal GI/Abdominal exam: Present: normal bowel sounds, soft, no peritoneal signs. Absent: distended, tenderness - Extremities Exam Extremities exam: Present: warm, radial pulses palpable and symmetrical. Absent : calf tenderness, cyanotic, pedal edema - Neurological Exam Neurological exam: Present: CN II-XII intact, oriented X3, no focal deficits. Absent: facial droop, speech deficit - Patient Status Disposition: Home, Self-Care Condition: Good Functional capacity at discharge: independent ambulation Overall status at discharge: patient is progressing back to baseline - Discharge Instructions Instructions: Pancreatitis (DC) Follow Up With: Zackary Hale MD [Primary Care Provider] - (in 1-2 weeks. office closed 4-20 ) Hesham Ventura MD [Partnered Physician] - (Follow-up with surgery in 1-2 weeks for possible elective cholecystectomy regarding recurrent pancreatitis) - Diet and Activity Activity: increase activity as tolerated Diet: diabetic diet, low fat, low cholesterol, low salt diet - VTE Reasons for not Prescribing Prophylaxis: Not indicated-Anticoagulated or INR therapeutic
[2017-11-12] MEDS ORDERED: *HR* Warfarin 7.5 MG TABLET PO ONE (18:00)
== END 2017-11-12 13:20 | disposition home or self-care (01) | DRG 440 ==
LOC: SUATTDRO → EMEROO 03:09 → 2SOUTHHOLD 03:09 → SUATTDRO 09:22 → 3NENU 11:31
PROVIDERS: ADMIT Internal Medicine; ATTEND Internal Medicine

== ENCOUNTER 2018-01-24 19:19 | Inpatient (IN) ==
[2018-01-24] MEDS ORDERED: methylPREDNISolone 125 MG/2 ML VIAL IVP ONE (19:32)
[2018-01-24] MEDS ORDERED: Ipratropium/Albuterol Neb 3 ML IH ONE (19:32)
--- NOTE | 2018-01-24 19:35 | Emergency Department Note ---
Disposition Clinical Impression: CHF (congestive heart failure) Qualifiers: Heart failure type: systolic Heart failure chronicity: chronic Qualified Code(s ): I50.22 - Chronic systolic (congestive) heart failure Pulmonary embolism Qualifiers: Pulmonary embolism type: other Chronicity: acute Acute cor pulmonale presence: without acute cor pulmonale Qualified Code(s): I26.99 - Other pulmonary embolism without acute cor pulmonale Disposition: Admitted As Inpatient Condition: Fair Time of Disposition: 23:30 General Adult HPI - General Chief complaint: ED Shortness of Breath/Dyspnea Stated complaint: SoB Time Seen by Provider: 01/24/18 19:29 Source: patient, EMS Mode of arrival: ambulatory Limitations: no limitations Nursing Notes Reviewed: Yes Vital Signs Reviewed: Yes - History of Present Illness HPI Narrative: Patient is a 62-year-old male with a past medical history of diabetes, hypertension, CAD, cardiac stents, CHF and COPD requiring 2 L nasal cannula since emergency Department department for evaluation of shortness of breath has been going on for the past 3 days and worsening. Patient mixed a productive sputum. Denies fevers, chest pain, back pain, abdominal pain, nausea, vomiting or calf tenderness. The patient states he feels that his legs are retaining fluid. He thinks his symptoms at this time related to CHF. He takes 40 mg of Lasix by mouth daily. Is also a chronic coagulation with Coumadin patient states because of a blood clot near his heart. Patient goes to [facility] for cardiac care. - Related Data Home Medications Medication Instructions Recorded Confirmed Albuterol Sulfate [Albuterol 2 puff IH Q4HR PRN 05/17/15 01/24/18 Inhaler] Ezetimibe [Zetia] 10 mg PO DAILY 05/17/15 01/24/18 Metformin HCl [Glucophage] 1,000 mg PO BID 05/17/15 01/24/18 Tiotropium [Spiriva] 18 mcg IH DAILY 05/17/15 01/24/18 Clopidogrel [Plavix] 75 mg PO DAILY 10/27/17 01/24/18 Furosemide [Lasix] 20 mg PO DAILY 10/27/17 01/24/18 Lisinopril [Zestril] 2.5 mg PO DAILY 10/27/17 01/24/18 Metoprolol Succinate [Toprol Xl] 25 mg PO DAILY 10/27/17 01/24/18 Lipase/Protease/Amylase [Omid Dr 1 cap PO BID 11/10/17 01/24/18 12,000 Units Capsule] Promethazine [Phenergan] 25 mg PO BID 11/10/17 01/24/18 Cholestyramine [Cholestyramine] 4 g PO BID 01/24/18 01/24/18 Perphenazine [Trilafon] 8 mg PO DAILY 01/24/18 01/24/18 Warfarin Sodium [Warfarin Sodium] 9 mg PO DAILY 01/24/18 01/24/18 Previous Rx's Medication Instructions Recorded Glimepiride [Amaryl] 2 mg PO 0800 15 Days #15 tablet 11/02/17 Morphine Immed Rel [Morphine 15 mg PO Q4HR PRN 3 Days #10 tab 11/13/17 Sulfate] Allergies Allergy/AdvReac Type Severity Reaction Status Date / Time loxapine [From Loxitane] Allergy See Verified 01/24/18 19:21 Comments betamethasone AdvReac Hives Verified 01/24/18 19:21 [From Lotrisone] clotrimazole [From Lotrisone] AdvReac Hives Verified 01/24/18 19:21 Sulfa (Sulfonamide AdvReac Hives Verified 01/24/18 19:21 Antibiotics) All systems ED: reviewed and negative except as stated. Review of Systems: As Per HPI Constitutional: Denies: fever, chills ENT ED: Denies: congestion Cardiovascular: Reports: chest pain, dyspnea on exertion, edema. Denies: palpitations, syncope Respiratory: Reports: cough, dyspnea, wheezes, sputum production Gastrointestinal: Denies: abdominal pain, nausea, vomiting Genitourinary: Denies: dysuria Musculoskeletal: Denies: back pain Integumentary: Denies: rash Neurological: Denies: weakness, numbness, paresthesias Past Medical History - Past Medical History Attestation: Yes The following information was validated with the patient. Medical history: Reports: cancer, COPD, coronary artery disease, diabetes, myocardial infarction, other Surgical history: Reports: angioplasty/stent, cataract, herniorrhaphy, other Psychiatric history: Reports: no psych history - Social History Smoking Status: Current every day smoker Smokeless Tobacco Status: No Alcohol use: Reports: none Drug use: Reports: none Physical Exam CONSTITUTIONAL: Obese male that appears to be in mild respiratory distress; A&O X 3, oxygen saturation is 98% on 3 L nasal cannula. Patient is tachycardic and afebrile. HEAD: Normocephalic; atraumatic EYES: PERRL, no scleral icterus NOSE: The nose is normal in appearance without rhinorrhea NECK: No JVD or distended neck veins RESP: Breath sounds are diminished bilaterally. Mild inspiratory and expiratory wheezing bilaterally. Slight rales in the bases bilaterally. CARD: Regular rhythm, without murmurs, rub or gallop ABD: Non-distended; non-tender, soft, without rigidity, rebound or guarding,no pulsatile mass CHEST: No pain with palpation SKIN: Normal for age and race; warm and dry without diaphoresis ; no apparent lesions. Patient has what appears to be chronic skin changes over his bilateral lower extremities consistent with chronic edema with mild erythema and small blistering. EXTREMITIES: Pulses are 2 plus and equal times 4 extremities, +1 pitting edema bilaterally. Course Course Narrative: Plan at this time is to evaluate the patient for his shortness of breath which will include a d-dimer for PE, chest x-ray EKG and troponin for cardiac ideology as well as BNP to evaluate for CHF exacerbation. Patient will be treated with a breathing treatment. We will reevaluate patient after the breathing treatments and pending treatments will depend further results from labs and plain films. - Reevaluation(s) Reevaluation #1: Patient's d-dimer was elevated greater than 1000. His BNP was also greater than 1000 which is a new finding for him. His last echo did show an ejection fraction of about 25%. He also had an intramural thrombus which is currently Y is anticoagulated with Coumadin. The patient's chest x-ray shows a new right- sided pleural effusion with superimposed mild pulmonary vascular congestion with concerns for pneumonia versus pneumonitis. Patient will undergo a CT of the chest to rule out pulmonary embolism and we initiated on IV antibiotics pneumonia. Patient remains stable at this time is sitting up in a chair in his room in no acute distress. Time: 20:46 Reevaluation #2: Patient's CTA of the chest came back with concerns for indeterminate whether there is a PE present or not. Discussed this with the hospitalist on-call decided to go forward with heparinization given that he is subtherapeutic on his Coumadin at this time as well. Patient will be admitted to the hospital. Time: 23:30 Vital Signs Temperature 97.4 F L 01/24/18 19:26 Pulse Rate 101 01/24/18 19:26 Respiratory Rate 20 01/24/18 19:26 Blood Pressure 134/84 01/24/18 19:26 O2 Sat by Pulse Oximetry 95 01/24/18 19:26 Temperature 98.1 F 01/25/18 04:36 Pulse Rate 77 01/25/18 04:36 Respiratory Rate 16 01/25/18 04:36 Blood Pressure 107/63 01/25/18 04:36 O2 Sat by Pulse Oximetry 93 01/25/18 04:36 Oxygen Delivery Oxygen Delivery Nasal Cannula Medical Decision Making - Medical Records Medical records reviewed: Yes I reviewed the patient's medical records. - Lab Data Lab results reviewed: Yes I reviewed the patient's lab results. Result diagrams: 01/24/18 19:36 01/24/18 19:36 Lab Results 01/24/18 01/24/18 01/24/18 Range/Units 19:36 19:36 19:36 WBC 9.2 (4.3-11.1) K/mcL RBC 4.73 (4.19-5.50) M/mcL Hgb 14.1 (12.9-16.9) g/dL Hct 45.0 (37.5-50.1) % MCV 95.1 (83.0-100.0) fL MCH 29.8 (28.0-33.3) pg MCHC 31.3 L (31.6-35.5) g/dL RDW 14.5 (11.5-14.5) % Plt Count 260 (140-400) K/mcL MPV 9.9 (9.4-12.4) fL Immature Gran % 0.3 (0-4) % Seg Neutrophils % 71.1 % Lymphocytes % 15.0 % Monocytes % 10.7 % Eosinophils % 2.2 % Basophils % 0.7 % Neutrophils # 6.5 (1.6-8.9) K/mcL Lymphocytes # 1.4 (0.6-4.6) K/mcL Monocytes # 1.0 (0.0-1.3) K/mcL Eosinophils # 0.2 (0.0-0.6) K/mcL Basophils # 0.1 (0.0-0.2) K/mcL PT 14.0 H (9.4-12.1) Seconds INR 1.2 APTT 28.2 (26.0-36.0) Seconds D-Dimer 1021 H (0-500) ng/mLFEU Sodium 130 L (136-145) mEq/L Potassium 4.8 (3.5-5.1) mEq/L Chloride 95 L (98-107) mEq/L Carbon Dioxide 26 (23-29) mEq/L BUN 26 H (8-23) mg/dL Creatinine 1.04 (0.70-1.30) mg/dL Est GFR ( Amer) > 60 (> 60) Est GFR (Non-Af Amer) > 60 (> 60) BUN/Creatinine Ratio 25 (6-26) Glucose 189 H (70-105) mg/dL Calculated Osmolality 280 (280-300) Lactic Acid (0.5-2.2) mmol/L Calcium 9.4 (8.6-10.3) mg/dL Total Bilirubin 0.8 (0.3-1.0) mg/dL Direct Bilirubin 0.3 H (0.0-0.2) mg/dL Indirect Bilirubin 0.5 (0.0-1.2) mg/dL AST 14 (13-39) Units/L ALT 12 (7-52) Units/L Alkaline Phosphatase 87 (34-104) Units/L Troponin I 0.05 H* (< 0.04) ng/mL B-Natriuretic Peptide (Less than 100) pg/mL Serum Total Protein 6.8 (6.4-8.9) g/dL Albumin 3.9 (3.5-5.7) g/dL Globulin 2.9 (2.4-3.5) g/dL Albumin/Globulin Ratio 1.3 (1.1-2.2) Urine Color (Yellow) Urine Clarity (Clear) Urine pH (5.0-8.0) pH Units Ur Specific [place] (1.010-1.025) Urine Protein (Neg-Trace) mg/dL Urine Glucose (UA) (Normal) mg/dL Urine Ketones (Negative) mg/dL Urine Blood (Negative) Urine Nitrite (Negative) Urine Bilirubin (Negative) Urine Urobilinogen (Normal) mg/dL Ur Leukocyte Esterase (Negative) Urine Microscopic RBC (0-3) per hpf Urine Microscopic WBC (0-3) per hpf Ur Squamous Epith Cells (None-Few) per lpf Urine Bacteria (None-Few) per hpf Hyaline Casts (None-Few) per lpf Ur Culture Indicated? (NO) 01/24/18 01/24/18 01/24/18 Range/Units 19:36 19:36 19:58 WBC (4.3-11.1) K/mcL RBC (4.19-5.50) M/mcL Hgb (12.9-16.9) g/dL Hct (37.5-50.1) % MCV (83.0-100.0) fL MCH (28.0-33.3) pg MCHC (31.6-35.5) g/dL RDW (11.5-14.5) % Plt Count (140-400) K/mcL MPV (9.4-12.4) fL Immature Gran % (0-4) % Seg Neutrophils % % Lymphocytes % % Monocytes % % Eosinophils % % Basophils % % Neutrophils # (1.6-8.9) K/mcL Lymphocytes # (0.6-4.6) K/mcL Monocytes # (0.0-1.3) K/mcL Eosinophils # (0.0-0.6) K/mcL Basophils # (0.0-0.2) K/mcL PT (9.4-12.1) Seconds INR APTT (26.0-36.0) Seconds D-Dimer (0-500) ng/mLFEU Sodium (136-145) mEq/L Potassium (3.5-5.1) mEq/L Chloride (98-107) mEq/L Carbon Dioxide (23-29) mEq/L BUN (8-23) mg/dL Creatinine (0.70-1.30) mg/dL Est GFR ( Amer) (> 60) Est GFR (Non-Af Amer) (> 60) BUN/Creatinine Ratio (6-26) Glucose (70-105) mg/dL Calculated Osmolality (280-300) Lactic Acid 1.2 (0.5-2.2) mmol/L Calcium (8.6-10.3) mg/dL Total Bilirubin (0.3-1.0) mg/dL Direct Bilirubin (0.0-0.2) mg/dL Indirect Bilirubin (0.0-1.2) mg/dL AST (13-39) Units/L ALT (7-52) Units/L Alkaline Phosphatase (34-104) Units/L Troponin I (< 0.04) ng/mL B-Natriuretic Peptide 1191 H (Less than 100) pg/mL Serum Total Protein (6.4-8.9) g/dL Albumin (3.5-5.7) g/dL Globulin (2.4-3.5) g/dL Albumin/Globulin Ratio (1.1-2.2) Urine Color Dark Yellow (Yellow) Urine Clarity Cloudy A (Clear) Urine pH 5.5 (5.0-8.0) pH Units Ur Specific [place] 1.023 (1.010-1.025) Urine Protein 30 H (Neg-Trace) mg/dL Urine Glucose (UA) Normal (Normal) mg/dL Urine Ketones Negative (Negative) mg/dL Urine Blood Negative (Negative) Urine Nitrite Negative (Negative) Urine Bilirubin Small H (Negative) Urine Urobilinogen 2.0 H (Normal) mg/dL Ur Leukocyte Esterase Negative (Negative) Urine Microscopic RBC 0-3 (0-3) per hpf Urine Microscopic WBC 3-5 H (0-3) per hpf Ur Squamous Epith Cells Moderate H (None-Few) per lpf Urine Bacteria None Seen (None-Few) per hpf Hyaline Casts Few (None-Few) per lpf Ur Culture Indicated? NO (NO) - Radiology Data Radiology results reviewed: Yes I reviewed the patient's radiology results. Chest X-Ray 01/24/18 19:32 IMPRESSION: 1. Right-sided pleural effusion with associated airspace disease may reflect atelectasis or pneumonia. Dedicated two view chest x-ray when patient can tolerate is recommended for further evaluation. 2. Findings appear to be superimposed on mild vascular congestion and/or chronic interstitial and emphysematous changes. A component of atypical pneumonitis is not excluded. Nonemergent pulmonary function testing is recommended. D/ / Mariano Nelson / Mariano Nelson Interpreting Provider: Mariano Neslon Chest CTA 01/24/18 20:44 IMPRESSION: Limited exam due to motion related artifact. The right middle lower lung zone pulmonary arterial branches to not opacify as well at the same level arteries on the left however there are no discrete filling defects on comparison chest CT exams, these vessels did opacify. . Pulmonary emboli in these branches should be considered although no discrete filling defects are noted. There is reflux of contrast into the inferior vena cava and hepatic veins raising the question of right heart pressure elevation Right-sided pleural effusion with multifocal airspace disease. This is indeterminate may represent atelectasis or pneumonia. Ascites Stranding in the fat near the splenic flexure. This is likely due to the ascites. Peritoneal implants would be difficult to exclude Multiple small retroperitoneal and retrocrural nodes. D/ / Bronson Ornelas / Bronson Ornelas Interpreting Provider: Bronson Ornelas - EKG Data EKG #1 EKG attestation: Yes I reviewed and interpreted this EKG. EKG results narrative: EKG done in 19:27 shows sinus tachycardia rate 107 bpm. Normal axis. [place] is 198 , QRS is 97, QT is 367 and QTc is 430 these are within normal limits. No signs of ST elevation, ST depression or Q waves. Patient does have 2 PVC's. No signs of ischemia.
[2018-01-24 20:00] LABS: Basophils # 0.1 K/mcL (0.0-0.2); Basophils % 0.7 %; Eosinophils # 0.2 K/mcL (0.0-0.6); Eosinophils % 2.2 %; Hemoglobin 14.1 g/dL (12.9-16.9); Immature Granulocytes % 0.3 % (0-4); Lymphocytes # 1.4 K/mcL (0.6-4.6); Mean Corpuscular HGB Conc 31.3 g/dL (31.6-35.5); Mean Corpuscular Hemoglobin 29.8 pg (28.0-33.3); Mean Corpuscular Volume 95.1 fL (83.0-100.0); Mean Platelet Volume 9.9 fL (9.4-12.4); Monocytes % 10.7 %; Neutrophils # 6.5 K/mcL (1.6-8.9); Platelet Count 260 K/mcL (140-400); Red Blood Count 4.73 M/mcL (4.19-5.50); Red Cell Distribution Width 14.5 % (11.5-14.5); Segmented Neutrophils % 71.1 %
[2018-01-24 20:07] LABS: Bilirubin,Urine Small (Negative); Blood,Urine Negative (Negative); Clarity,Urine Cloudy (Clear); Color,Urine Dark Yellow (Yellow); Glucose,Urine (UA) Normal (Normal); Ketones,Urine Negative (Negative); Leukocyte Esterase,Urine Negative (Negative); Nitrite,Urine Negative (Negative); PH,Urine 5.5 pH Units (5.0-8.0); Protein,Urine 30 mg/dL (Neg-Trace); Specific Gravity,Urine 1.023 (1.010-1.025)
[2018-01-24 20:09] LABS: Bacteria,Urine None Seen per hpf (None-Few); Hyaline Casts,Urine Few per lpf (None-Few); Squamous Epithelial Cell,Urine Moderate per lpf (None-Few)
[2018-01-24 20:09] LABS: INR 1.2
[2018-01-24 20:17] LABS: Alanine Aminotransferase 12 Units/L (7-52); Albumin 3.9 g/dL (3.5-5.7); Albumin/Globulin Ratio 1.3 (1.1-2.2); Alkaline Phosphatase 87 Units/L (34-104); Aspartate Amino Transferase 14 Units/L (13-39); BUN/Creatinine Ratio 25 (6-26); Bilirubin,Direct 0.3 mg/dL (0.0-0.2); Bilirubin,Indirect 0.5 mg/dL (0.0-1.2); Bilirubin,Total 0.8 mg/dL (0.3-1.0); Blood Urea Nitrogen 26 mg/dL (8-23); Calcium 9.4 mg/dL (8.6-10.3); Carbon Dioxide 26 mEq/L (23-29); Chloride 95 mEq/L (98-107); Globulin 2.9 g/dL (2.4-3.5); Glucose 189 mg/dL (70-105); Osmolality,Calculated 280 (280-300); Potassium 4.8 mEq/L (3.5-5.1); Sodium 130 mEq/L (136-145); Total Protein 6.8 g/dL (6.4-8.9); eGFR For African Americans > 60 (> 60); eGFR For Non-African Americans > 60 (> 60)
[2018-01-24 20:18] LABS: Troponin I 0.05 ng/mL (< 0.04)
[2018-01-24 20:19] LABS: RBC,Urine 0-3 per hpf (0-3)
[2018-01-24] MEDS ORDERED: Furosemide 40 MG in 0.9 % Sodium Chloride 50 ML IVPB ONE (20:40)
--- NOTE | 2018-01-24 20:41 | Emergency Department Note ---
Disposition Clinical Impression: CHF (congestive heart failure), Pulmonary embolism Disposition: Admitted As Inpatient Condition: Fair General Adult HPI - General Chief complaint: ED Shortness of Breath/Dyspnea Stated complaint: SoB Time Seen by Provider: 01/24/18 19:29 Source: patient, EMS Mode of arrival: ambulatory Limitations: no limitations Nursing Notes Reviewed: Yes Vital Signs Reviewed: Yes - History of Present Illness Pain Scale: 0 - Related Data Home Medications Medication Instructions Recorded Confirmed Albuterol Sulfate [Albuterol 2 puff IH Q4HR PRN 05/17/15 01/24/18 Inhaler] Ezetimibe [Zetia] 10 mg PO DAILY 05/17/15 01/24/18 Metformin HCl [Glucophage] 1,000 mg PO BID 05/17/15 01/24/18 Tiotropium [Spiriva] 18 mcg IH DAILY 05/17/15 01/24/18 Clopidogrel [Plavix] 75 mg PO DAILY 10/27/17 01/24/18 Furosemide [Lasix] 20 mg PO DAILY 10/27/17 01/24/18 Lisinopril [Zestril] 2.5 mg PO DAILY 10/27/17 01/24/18 Metoprolol Succinate [Toprol Xl] 25 mg PO DAILY 10/27/17 01/24/18 Lipase/Protease/Amylase [[place] Dr 1 cap PO BID 11/10/17 01/24/18 12,000 Units Capsule] Promethazine [Phenergan] 25 mg PO BID 11/10/17 01/24/18 Cholestyramine [Cholestyramine] 4 g PO BID 01/24/18 01/24/18 Perphenazine [Trilafon] 8 mg PO DAILY 01/24/18 01/24/18 Warfarin Sodium [Warfarin Sodium] 9 mg PO DAILY 01/24/18 01/24/18 Previous Rx's Medication Instructions Recorded Glimepiride [Amaryl] 2 mg PO 0800 15 Days #15 tablet 11/02/17 Morphine Immed Rel [Morphine 15 mg PO Q4HR PRN 3 Days #10 tab 11/13/17 Sulfate] Allergies Allergy/AdvReac Type Severity Reaction Status Date / Time loxapine [From Loxitane] Allergy See Verified 01/24/18 19:21 Comments betamethasone AdvReac Hives Verified 01/24/18 19:21 [From Lotrisone] clotrimazole [From Lotrisone] AdvReac Hives Verified 01/24/18 19:21 Sulfa (Sulfonamide AdvReac Hives Verified 01/24/18 19:21 Antibiotics) Constitutional: Denies: fever, chills ENT ED: Denies: congestion Cardiovascular: Reports: chest pain, dyspnea on exertion, edema. Denies: palpitations, syncope Respiratory: Reports: cough, dyspnea, wheezes, sputum production Gastrointestinal: Denies: abdominal pain, nausea, vomiting Genitourinary: Denies: dysuria Musculoskeletal: Denies: back pain Integumentary: Denies: rash Neurological: Denies: weakness, numbness, paresthesias Past Medical History - Past Medical History Medical history: Reports: cancer, COPD, coronary artery disease, diabetes, myocardial infarction, other Surgical history: Reports: angioplasty/stent, cataract, herniorrhaphy, other Psychiatric history: Reports: no psych history - Social History Smoking Status: Current every day smoker Smokeless Tobacco Status: No Alcohol use: Reports: none Drug use: Reports: none Physical Exam - General Limitations: no limitations General appearance: alert Course Vital Signs Temperature 97.4 F L 01/24/18 19:26 Pulse Rate 101 01/24/18 19:26 Respiratory Rate 20 01/24/18 19:26 Blood Pressure 134/84 01/24/18 19:26 O2 Sat by Pulse Oximetry 95 01/24/18 19:26 Temperature 98.2 F 01/25/18 00:32 Pulse Rate 83 01/25/18 00:32 Respiratory Rate 16 01/25/18 00:32 Blood Pressure 104/76 01/25/18 00:32 O2 Sat by Pulse Oximetry 94 01/25/18 00:45 Oxygen Delivery Oxygen Delivery Nasal Cannula Medical Decision Making - Lab Data Result diagrams: 01/24/18 19:36 01/24/18 19:36 Lab Results 01/24/18 01/24/18 01/24/18 Range/Units 19:36 19:36 19:36 WBC 9.2 (4.3-11.1) K/mcL RBC 4.73 (4.19-5.50) M/mcL Hgb 14.1 (12.9-16.9) g/dL Hct 45.0 (37.5-50.1) % MCV 95.1 (83.0-100.0) fL MCH 29.8 (28.0-33.3) pg MCHC 31.3 L (31.6-35.5) g/dL RDW 14.5 (11.5-14.5) % Plt Count 260 (140-400) K/mcL MPV 9.9 (9.4-12.4) fL Immature Gran % 0.3 (0-4) % Seg Neutrophils % 71.1 % Lymphocytes % 15.0 % Monocytes % 10.7 % Eosinophils % 2.2 % Basophils % 0.7 % Neutrophils # 6.5 (1.6-8.9) K/mcL Lymphocytes # 1.4 (0.6-4.6) K/mcL Monocytes # 1.0 (0.0-1.3) K/mcL Eosinophils # 0.2 (0.0-0.6) K/mcL Basophils # 0.1 (0.0-0.2) K/mcL PT 14.0 H (9.4-12.1) Seconds INR 1.2 APTT 28.2 (26.0-36.0) Seconds D-Dimer 1021 H (0-500) ng/mLFEU Sodium 130 L (136-145) mEq/L Potassium 4.8 (3.5-5.1) mEq/L Chloride 95 L (98-107) mEq/L Carbon Dioxide 26 (23-29) mEq/L BUN 26 H (8-23) mg/dL Creatinine 1.04 (0.70-1.30) mg/dL Est GFR ( Amer) > 60 (> 60) Est GFR (Non-Af Amer) > 60 (> 60) BUN/Creatinine Ratio 25 (6-26) Glucose 189 H (70-105) mg/dL Calculated Osmolality 280 (280-300) Lactic Acid (0.5-2.2) mmol/L Calcium 9.4 (8.6-10.3) mg/dL Total Bilirubin 0.8 (0.3-1.0) mg/dL Direct Bilirubin 0.3 H (0.0-0.2) mg/dL Indirect Bilirubin 0.5 (0.0-1.2) mg/dL AST 14 (13-39) Units/L ALT 12 (7-52) Units/L Alkaline Phosphatase 87 (34-104) Units/L Troponin I 0.05 H* (< 0.04) ng/mL B-Natriuretic Peptide (Less than 100) pg/mL Serum Total Protein 6.8 (6.4-8.9) g/dL Albumin 3.9 (3.5-5.7) g/dL Globulin 2.9 (2.4-3.5) g/dL Albumin/Globulin Ratio 1.3 (1.1-2.2) Urine Color (Yellow) Urine Clarity (Clear) Urine pH (5.0-8.0) pH Units Ur Specific [place] (1.010-1.025) Urine Protein (Neg-Trace) mg/dL Urine Glucose (UA) (Normal) mg/dL Urine Ketones (Negative) mg/dL Urine Blood (Negative) Urine Nitrite (Negative) Urine Bilirubin (Negative) Urine Urobilinogen (Normal) mg/dL Ur Leukocyte Esterase (Negative) Urine Microscopic RBC (0-3) per hpf Urine Microscopic WBC (0-3) per hpf Ur Squamous Epith Cells (None-Few) per lpf Urine Bacteria (None-Few) per hpf Hyaline Casts (None-Few) per lpf Ur Culture Indicated? (NO) 01/24/18 01/24/18 01/24/18 Range/Units 19:36 19:36 19:58 WBC (4.3-11.1) K/mcL RBC (4.19-5.50) M/mcL Hgb (12.9-16.9) g/dL Hct (37.5-50.1) % MCV (83.0-100.0) fL MCH (28.0-33.3) pg MCHC (31.6-35.5) g/dL RDW (11.5-14.5) % Plt Count (140-400) K/mcL MPV (9.4-12.4) fL Immature Gran % (0-4) % Seg Neutrophils % % Lymphocytes % % Monocytes % % Eosinophils % % Basophils % % Neutrophils # (1.6-8.9) K/mcL Lymphocytes # (0.6-4.6) K/mcL Monocytes # (0.0-1.3) K/mcL Eosinophils # (0.0-0.6) K/mcL Basophils # (0.0-0.2) K/mcL PT (9.4-12.1) Seconds INR APTT (26.0-36.0) Seconds D-Dimer (0-500) ng/mLFEU Sodium (136-145) mEq/L Potassium (3.5-5.1) mEq/L Chloride (98-107) mEq/L Carbon Dioxide (23-29) mEq/L BUN (8-23) mg/dL Creatinine (0.70-1.30) mg/dL Est GFR ( Amer) (> 60) Est GFR (Non-Af Amer) (> 60) BUN/Creatinine Ratio (6-26) Glucose (70-105) mg/dL Calculated Osmolality (280-300) Lactic Acid 1.2 (0.5-2.2) mmol/L Calcium (8.6-10.3) mg/dL Total Bilirubin (0.3-1.0) mg/dL Direct Bilirubin (0.0-0.2) mg/dL Indirect Bilirubin (0.0-1.2) mg/dL AST (13-39) Units/L ALT (7-52) Units/L Alkaline Phosphatase (34-104) Units/L Troponin I (< 0.04) ng/mL B-Natriuretic Peptide 1191 H (Less than 100) pg/mL Serum Total Protein (6.4-8.9) g/dL Albumin (3.5-5.7) g/dL Globulin (2.4-3.5) g/dL Albumin/Globulin Ratio (1.1-2.2) Urine Color Dark Yellow (Yellow) Urine Clarity Cloudy A (Clear) Urine pH 5.5 (5.0-8.0) pH Units Ur Specific [place] 1.023 (1.010-1.025) Urine Protein 30 H (Neg-Trace) mg/dL Urine Glucose (UA) Normal (Normal) mg/dL Urine Ketones Negative (Negative) mg/dL Urine Blood Negative (Negative) Urine Nitrite Negative (Negative) Urine Bilirubin Small H (Negative) Urine Urobilinogen 2.0 H (Normal) mg/dL Ur Leukocyte Esterase Negative (Negative) Urine Microscopic RBC 0-3 (0-3) per hpf Urine Microscopic WBC 3-5 H (0-3) per hpf Ur Squamous Epith Cells Moderate H (None-Few) per lpf Urine Bacteria None Seen (None-Few) per hpf Hyaline Casts Few (None-Few) per lpf Ur Culture Indicated? NO (NO) Critical Care Time Critical Care Time: Yes Total Critical Care Time: 40 Attestation: Critical care performed: Time is exclusive of separately billable procedures. Time includes: direct patient care, patient reassessment, coordination of patient care, interpretation of data (laboratory data, radiology data, and respiratory data), review of patient's medical records, medical consultation and documentation of patient care. Procedures included in critical care time: Procedures excluded from critical care time: Attestation Statement - Attestation Attestation: I, Raul Grayson MD, personally evaluated this patient and discussed their management with the resident physician. I reviewed the resident's note and agree with the documented findings, medical decision making, and plan of care. 62-year-old male presents to the emergency department by EMS for a complaint of increasing shortness of breath over the past 3 days. Patient has a history of CHF as well as COPD. He is on home oxygen at 2 L/m by nasal cannula. EMS reports his oxygen saturation on their arrival was 77% on room air. He was placed on a nonrebreather at 10 L and increased up to the mid 90s. On arrival here patient was placed back on nasal cannula at 3 L/m and maintained an oxygen saturation in the upper 90s. Patient denies any chest pain. He does admit to some cough with some thick white sputum production. No fever. Shortness of breath is worse with exertion. He also complains of increased swelling of his abdomen and lower extremities. He complains of weight gain. On examination patient is a well-developed obese male in no acute distress. He is mildly tachypneic but speaks in full sentences. There is no cyanosis or diaphoresis. He is alert and oriented 3. Chest is nontender to palpation. Breath sounds are markedly decreased bilaterally with a few moist rales in the bases bilaterally. Heart is regular with a mild tachycardia. Abdomen is distended but soft and nontender with present bowel bilaterally as well as the abdominal wall. EKG shows a sinus tachycardia with ventricular rate of 107 with a PVC. No acute ST segment elevation or depression. Chest x-ray shows a right pleural effusion and pulmonary vascular congestion. Some right lower lobe air space disease, atelectasis versus pneumonia. Labs reviewed. D-dimer 1021. BNP 1191. Previous BNP was less than 100. Troponin 0.05 but this appears to be patient's baseline. CTA of the chest obtained and inconclusive as to pulmonary emboli. No definite filling defects. Patient was started on heparin infusion at the request of the hospitalist. The hospitalist, Dr. Webb, was consulted and accepted admission of the patient.
[2018-01-24] MEDS ORDERED: Isovue-370 500 ML INFUS..BTL IV ONE (20:44)
[2018-01-24] MEDS ORDERED: Furosemide 40 MG TABLET PO ONE (20:58)
[2018-01-24] MEDS: Levofloxacin 750 MG/150 ML 750 MG/150 ML BAG IVPB SCH (21:41)
--- NOTE | 2018-01-24 23:20 | Internal Med History&Physical ---
Date of Encounter: 01/24/18 Time of Encounter: 10:55 Internal Medicine - H&P: HPI History of present illness: Patient is a 62-year-old male with a past medical history of diabetes, hypertension, CAD, cardiac stents, CHF and COPD requiring 2 L nasal cannula presented to emergency Department for evaluation of 3 days history of shortness of breath has been going on for the past 3 days associated with productive cough sputum. Denies any chest pain. He stated that he follow-up with [facility] for his cardiac care, he believes that he is been active bleeding fluid lately and that his home dose of diuretics which is 40 mg of Lasix daily is not diuresing him. He stated that lately he noted progressive worsening over lower extremity edema. He was admitted for further evaluation and management of congestive heart failure exacerbation Past Med Surg Social Fam HX - Past Medical History Medical history: cancer, COPD, coronary artery disease, diabetes, myocardial infarction, other Additional medical history: pancreatitis Psychiatric history: no psych history - Past Surgical History Surgical History: angioplasty/stent, cataract, herniorrhaphy, other Additional surgical history: x3 stents - Social History Smoking Status: Current every day smoker Smokeless Tobacco Status: No Alcohol use: none Drug use: none - Family History Father Adopted: No Living Status: Hx Family Cardiac Disorders: Yes Hx Family Respiratory Disorders: Yes Hx Family Cancer: Yes Hx Family GI Disorders: No Hx Family Endocrine Disorder: No Hx Family Neuromuscular Disorders: No Hx Family Neurologic Disorders: No Hx Family HEENT Disorders: No Hx Family Autoimmune Disorders: No Mother Adopted: No Family Member Ethnicity: Non- Living Status: Hx Family Cardiac Disorders: No Hx Family Respiratory Disorders: Yes Hx Family Cancer: Yes Hx Family GI Disorders: No Hx Family Endocrine Disorder: Yes Hx Family Neuromuscular Disorders: No Hx Family Neurologic Disorders: No Hx Family HEENT Disorders: No Hx Family Autoimmune Disorders: No Internal Medicine - H&P: Meds Albuterol Sulfate [Albuterol Inhaler] 2 puff IH Q4HR PRN 05/17/15 [History] Ezetimibe [Zetia] 10 mg PO DAILY 05/17/15 [History] Metformin HCl [Glucophage] 1,000 mg PO BID 05/17/15 [History] Tiotropium [Spiriva] 18 mcg IH DAILY 05/17/15 [History] Clopidogrel [Plavix] 75 mg PO DAILY 10/27/17 [History] Furosemide [Lasix] 20 mg PO DAILY 10/27/17 [History] Lisinopril [Zestril] 2.5 mg PO DAILY 10/27/17 [History] Metoprolol Succinate [Toprol Xl] 25 mg PO DAILY 10/27/17 [History] Glimepiride [Amaryl] 2 mg PO 0800 15 Days #15 tablet 11/02/17 [Rx] Lipase/Protease/Amylase [Creon Dr 12,000 Units Capsule] 1 cap PO BID 11/10/17 [ History] Promethazine [Phenergan] 25 mg PO BID 11/10/17 [History] Morphine Immed Rel [Morphine Sulfate] 15 mg PO Q4HR PRN 3 Days #10 tab 11/13/17 [Rx] Cholestyramine [Cholestyramine] 4 g PO BID 01/24/18 [History] Perphenazine [Trilafon] 8 mg PO DAILY 01/24/18 [History] Warfarin Sodium [Warfarin Sodium] 9 mg PO DAILY 01/24/18 [History] 3 Allergy/AdvReac Type Severity Reaction Status Date / Time loxapine [From Loxitane] Allergy See Verified 01/24/18 19:21 Comments betamethasone AdvReac Hives Verified 01/24/18 19:21 [From Lotrisone] clotrimazole [From Lotrisone] AdvReac Hives Verified 01/24/18 19:21 Sulfa (Sulfonamide AdvReac Hives Verified 01/24/18 19:21 Antibiotics) All Systems PM: A 10-system review of systems was performed and is negative for pertinent findings except as documented above in the HPI. - Constitutional Vitals: Temp Pulse Resp BP Pulse Ox 97.4 F L 81 17 115/73 97 01/24/18 19:26 01/24/18 22:50 01/24/18 22:50 01/24/18 22:50 01/24/18 22:50 Internal Med - H&P Results - Labs CBC & Chem 7: 01/24/18 19:36 01/24/18 19:36 - Assessment and plan (1) Acute exacerbation of congestive heart failure Current Visit: Yes Status: Acute Assessment and plan: ASSESSMENT: - SOB due to *CHF exacerbation PLAN: - CPP x 1 more, 8 hr after the 1st one - EKG in AM - ASA - O2 to keep SpO2 > 92% - Lasix 40 mg IV BID - 2D Echo - CBCD, BMP in AM - Fasting lipids - Tylenol 650 mg PO q 4-6 hr PRN pain - Home meds - Heparin 5000 U SQ BID (2) Diabetes Current Visit: No Status: Chronic Assessment and plan: We will continue home medication and start insulin sliding scale with moderate coverage Qualifiers: Diabetes mellitus type: type 2 Diabetes mellitus halfway insulin use: without halfway use Diabetes mellitus complication status: without complication Qualified Code(s): E11.9 - Type 2 diabetes mellitus without complications (3) HTN (hypertension) Current Visit: No Status: Chronic Qualifiers: Hypertension type: essential hypertension Qualified Code(s): I10 - Essential (primary) hypertension (4) Obesity Current Visit: No Status: Chronic Qualifiers: Obesity classification: adult class 3 (BMI >= 40) Serious obesity comorbidity presence: without serious comorbidity Body mass index: BMI 40.0- 44.9 (5) CAD (coronary artery disease) Current Visit: No Status: Chronic Assessment and plan: Patient has history of coronary artery disease and follow-up with [facility] for his cardiac care Qualifiers: Coronary Disease-Associated Artery/Lesion type: [place] artery [place] vs. transplanted heart: [place] heart Associated angina: without angina Qualified Code(s): I25.10 - Atherosclerotic heart disease of [place] coronary artery without angina pectoris (6) DVT prophylaxis Current Visit: No Status: Acute (7) COPD (chronic obstructive pulmonary disease) Current Visit: No Status: Chronic 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 - Other emphysema - Time Spent With Patient Total time spent is greater than 50% in coordination of care (as documented) at patient's floor/unit and/or counseling patient:
[2018-01-24] MEDS ORDERED: *HR* Heparin 5,000 UNIT/ML VIAL IVP ONE (23:28)
[2018-01-24] MEDS ORDERED: *HR* Heparin 5,000 UNIT/ML VIAL IVP PRN (23:28)
[2018-01-24 23:54] LABS: Activated Partial Thrombo Time 28.2 Seconds (26.0-36.0)
[2018-01-25] MEDS: Heparin 25,000 UNIT/500 ML D5W 25,000 UNIT/500 ML BAG IVC SCH ×2 (00:04→18:55)
[2018-01-25] MEDS ORDERED: *HR* Morphine Immed Rel 30 MG TABLET PO PRN (00:31)
[2018-01-25] MEDS: Cholestyramine 4 GM POWD.PACK PO SCH ×2 (06:18→15:48)
[2018-01-25 06:55] LABS: Activated Partial Thrombo Time 151.8 Seconds (26.0-36.0); Heparin anti-factor XA UFH 1.13 IU/mL (0.30-0.70)
[2018-01-25] MEDS: Tiotropium 18 MCG inhalation IH SCH (07:56)
[2018-01-25] MEDS ORDERED: *HR* Glimepiride 2 MG TABLET PO SCH (08:00)
[2018-01-25] MEDS ORDERED: *HR* Metformin 500 MG TABLET PO SCH (08:00)
[2018-01-25] MEDS: Levofloxacin 750 MG/150 ML 750 MG/150 ML BAG IVPB SCH (09:16)
[2018-01-25] MEDS: Metoprolol XL (24 HR) Succ 25 MG TAB.ER.24H PO SCH (09:16)
[2018-01-25] MEDS: Perphenazine 8 MG TABLET PO SCH (09:23)
[2018-01-25] MEDS ORDERED: *HR* Dextrose 50 % in Water (Syg) 50 ML SYRINGE IVP PRN (11:18)
[2018-01-25] MEDS ORDERED: Dextrose Gel 15 GM/37.5 ML TUBE PO PRN ×2 (11:18)
[2018-01-25] MEDS ORDERED: D5% in Water 1,000 ML IVC PRN (11:18)
[2018-01-25] MEDS: Furosemide 40 MG/4 ML VIAL IVP SCH (12:10)
[2018-01-25] MEDS: Insulin LISPRO 300 UNITS/3 ML VIAL SQ SCH ×3 (12:10→23:05)
--- NOTE | 2018-01-25 17:04 | Internal Med Progress Note ---
<AlexanderSanti Rocio - Last Filed: 01/25/18 18:05> Date of Encounter: 01/25/18 Time of Encounter: 17:02 - Assessment and plan (1) Pulmonary embolism Current Visit: Yes Status: Acute Assessment and plan: Can not rule out pulmonary embolism based on CTA at admission. The patient is not currently in respiratory distress. I will attempt to schedule the patient for a VQ scan, or if not repeat a CTA once the patient has had some of his CHF fluid pulled off. Qualifiers: Pulmonary embolism type: other Chronicity: acute Acute cor pulmonale presence: without acute cor pulmonale Qualified Code(s): I26.99 - Other pulmonary embolism without acute cor pulmonale (2) COPD (chronic obstructive pulmonary disease) Current Visit: No Status: Chronic Assessment and plan: The patients chronic COPD is currently controlled with albuterol and spiriva. 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 - Other emphysema (3) Diabetes Current Visit: No Status: Chronic Assessment and plan: Patients chronic diabetes is currently controlled with sliding scale insulin. Qualifiers: Diabetes mellitus type: type 2 Diabetes mellitus terminal worker insulin use: without penitentiary use Diabetes mellitus complication status: without complication Qualified Code(s): E11.9 - Type 2 diabetes mellitus without complications (4) HTN (hypertension) Current Visit: No Status: Chronic Assessment and plan: Patient has controlled chronic hypertension, we have continued his home lisinopril. Qualifiers: Hypertension type: essential hypertension Qualified Code(s): I10 - Essential (primary) hypertension (5) DVT prophylaxis Current Visit: No Status: Acute Assessment and plan: Patient is currently on heparin drip. (6) Obesity Current Visit: No Status: Chronic Qualifiers: Obesity classification: adult class 3 (BMI >= 40) Serious obesity comorbidity presence: without serious comorbidity Body mass index: BMI 40.0- 44.9 Qualified Code(s): E66.9 - Obesity, unspecified; Z68.41 - Body mass index (BMI) 40.0-44.9, adult (7) CAD (coronary artery disease) Current Visit: No Status: Chronic Assessment and plan: Patient has controlled chronic coronary artery disease, he is currently on heparin drip. Qualifiers: Coronary Disease-Associated Artery/Lesion type: [place] artery [place] vs. transplanted heart: [place] heart Associated angina: without angina Qualified Code(s): I25.10 - Atherosclerotic heart disease of [place] coronary artery without angina pectoris (8) Acute exacerbation of congestive heart failure Current Visit: Yes Status: Acute Assessment and plan: This is an acute exacerbation of this patient's chronic congestive heart failure. The patient's Lasix was increased in the hospital to attempt to decrease his fluid overload. The patient had an echocardiogram in July of this year showing 20-25% EF left systolic dysfunction. I will consult cardiology in the morning to question what more can be done for this patients CHF. Qualifiers: Heart failure type: systolic Qualified Code(s): I50.23 - Acute on chronic systolic (congestive) heart failure - Time Spent With Patient Total time spent is greater than 50% in coordination of care (as documented) at patient's floor/unit and/or counseling patient: - Subjective Interval history: Patient seen and examined this morning. Sitting comfortably in chair. Denies shortness of breath or chest pain or headache, nausea, vomiting. He is satting at 100% on 2 L nasal cannula. - Constitutional Vitals: Temp Pulse Resp BP Pulse Ox 98.6 F 87 16 95/60 99 01/25/18 11:21 01/25/18 15:58 01/25/18 15:58 01/25/18 15:58 01/25/18 15:58 General appearance: Present: cooperative, A&O X 3, pleasant, no acute distress, answers questions appropriately - Head Head exam: Present: atraumatic, normocephalic - Respiratory Respiratory exam: Present: decreased breath sounds, CTAB Additional comments: Breath sounds are distant but without adventitia. - Cardiovascular Cardiovascular exam: Present: RRR, +S1, +S2. Absent: diastolic murmur, gallop, rubs, systolic murmur - GI/Abdominal GI/Abdominal exam: Present: normal bowel sounds, tenderness Additional comments: Patient tender to palpation in lower abdomen where he states he has had multiple herniorrhaphies. Patient is otherwise nontender - Extremities Exam Extremities exam: Present: pedal edema Additional comments: Bilateral lower extremities exhibit nonpitting edema. Legs were not erythematous or tender. Negative Carmen signs bilaterally. Internal Medicine: Result - Labs CBC & Chem 7: 01/24/18 19:36 01/24/18 19:36 Labs: Cardiac Enzymes 01/25/18 Range/Units 07:40 Troponin I 0.04 H* (< 0.04) ng/mL - ABG Interpretation ABG results: PT/INR, D-dimer PT 14.0 Seconds (9.4-12.1) H 01/24/18 19:36 D-Dimer 1021 ng/mLFEU (0-500) H 01/24/18 19:36 - Diagnostic Studies CT scan - chest Additional comments: CT/CT angio chest IMPRESSION: Limited exam due to motion related artifact. The right middle lower lung zone pulmonary arterial branches to not opacify as well at the same level arteries on the left however there are no discrete filling defects on comparison chest CT exams, these vessels did opacify. . Pulmonary emboli in these branches should be considered although no discrete filling defects are noted. I discussed this chest CT with radiology. They stated that they could not confidently rule out pulmonary embolism. Consult Discharge Plan - 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 - Other emphysema (2) Diabetes Current Visit: No Status: Chronic Qualifiers: Diabetes mellitus type: type 2 Diabetes mellitus terminal worker insulin use: without penitentiary use Diabetes mellitus complication status: without complication Qualified Code(s): E11.9 - Type 2 diabetes mellitus without complications (3) HTN (hypertension) Current Visit: No Status: Chronic Qualifiers: Hypertension type: essential hypertension Qualified Code(s): I10 - Essential (primary) hypertension (4) DVT prophylaxis Current Visit: No Status: Acute (5) Obesity Current Visit: No Status: Chronic Qualifiers: Obesity classification: adult class 3 (BMI >= 40) Serious obesity comorbidity presence: without serious comorbidity Body mass index: BMI 40.0- 44.9 Qualified Code(s): E66.9 - Obesity, unspecified; Z68.41 - Body mass index (BMI) 40.0-44.9, adult (6) CAD (coronary artery disease) Current Visit: No Status: Chronic Qualifiers: Coronary Disease-Associated Artery/Lesion type: [place] artery [place] vs. transplanted heart: [place] heart Associated angina: without angina Qualified Code(s): I25.10 - Atherosclerotic heart disease of [place] coronary artery without angina pectoris (7) Pulmonary embolism Current Visit: Yes Status: Acute Qualifiers: Pulmonary embolism type: other Chronicity: acute Acute cor pulmonale presence: without acute cor pulmonale Qualified Code(s): I26.99 - Other pulmonary embolism without acute cor pulmonale (8) Acute exacerbation of congestive heart failure Current Visit: Yes Status: Acute Qualifiers: Heart failure type: systolic Qualified Code(s): I50.23 - Acute on chronic systolic (congestive) heart failure - Time Spent With Patient Total time spent is greater than 50% in coordination of care (as documented) at patient's floor/unit and/or counseling patient: - Constitutional Vitals: Temp Pulse Resp BP Pulse Ox 98.2 F 83 16 105/68 97 01/25/18 19:43 01/25/18 19:43 01/25/18 19:43 01/25/18 19:43 01/25/18 19:43 Internal Medicine: Result - Labs CBC & Chem 7: 01/24/18 19:36 01/24/18 19:36 Labs: Cardiac Enzymes 01/25/18 Range/Units 07:40 Troponin I 0.04 H* (< 0.04) ng/mL - ABG Interpretation ABG results: PT/INR, D-dimer PT 14.0 Seconds (9.4-12.1) H 01/24/18 19:36 D-Dimer 1021 ng/mLFEU (0-500) H 01/24/18 19:36 - Attending Attestation I examined this patient and my medical decision-making was reviewed with the Resident Physician. I agree with the documented findings, disposition and treatment plan as described except to the extent set forth below. Patient is currently in no acute distress, sitting in chair conversing without issue. Abdomen appears soft but distended with normal bowel sounds, bipedal 2+ pitting edema, poor air exchange of lung bases with poor inspiratory effort, no wheezing. CVS: RRR, no murmurs. EF in Jul 2017 was 20-25%, Cardiac cath in 2017 showed EF 10% with global LV dysfunction. Sodium 130, INR is < 2.0. Unsure why patient is on coumadin at home. Will need outside records, he was recently seen by [facility]. Continue heparin drip until then. Will need to evaluate echocardiogram and continue to try to rule out PE since CTA was not able to clearly rule in or rule out PE. If patient were more stable, could consider a V /Q scan or repeating CTA chest. Echocardiogram pending. Subtherapeutic INR questions compliance. If this patient needs anticoagulation upon discharge, will need to consider other anticoagulant vs resuming coumadin. In regards to acute decompensated heart failure, he will need aggressive diuresis, he is on MARILYNN inh and BB. Cardiology will be consulted in AM, appreciate recommendations.
--- NOTE | 2018-01-25 19:57 | Electrocardiograph Report ---
[address] [address] Test Date: 2018-01-24 Pat Name: Deuce Emmanuel Department: 103 Room: 2NE24 Gender: M Sfdc Consultant: DAWNA : [id number] Requested By: Solo Madera Order Number: [id number] Reading MD: Dilip Hooker Measurements Intervals [place] Rate: 107 P: 85 ME: 198 QRS: -29 QRSD: 97 T: 100 QT: 367 QTc: 430 Interpretive Statements SINUS TACHYCARDIA WITH 1ST AV BLOCK WITH OCCASIONAL VENTRICULAR PREMATURE COMPLEXES INDETERMINATE AXIS LOW QRS VOLTAGE IN PRECORDIAL LEADS Poor R wave progression Electronically Signed On 01-25-2018 19:56:02 EDT by Dilip Hooker
[2018-01-26 04:01] LABS: Basophils # 0.1 K/mcL (0.0-0.2); Basophils % 0.8 %; Eosinophils # 0.3 K/mcL (0.0-0.6); Eosinophils % 2.8 %; Hematocrit 42.6 % (37.5-50.1); Hemoglobin 13.2 g/dL (12.9-16.9); Immature Granulocytes % 0.3 % (0-4); Lymphocytes # 1.6 K/mcL (0.6-4.6); Mean Corpuscular Hemoglobin 29.4 pg (28.0-33.3); Mean Corpuscular Volume 94.9 fL (83.0-100.0); Monocytes # 1.1 K/mcL (0.0-1.3); Monocytes % 12.7 %; Neutrophils # 5.8 K/mcL (1.6-8.9); Platelet Count 211 K/mcL (140-400); Red Blood Count 4.49 M/mcL (4.19-5.50); Red Cell Distribution Width 14.6 % (11.5-14.5); Segmented Neutrophils % 65.4 %
[2018-01-26 04:26] LABS: BUN/Creatinine Ratio 28 (6-26); Blood Urea Nitrogen 26 mg/dL (8-23); Calcium 9.2 mg/dL (8.6-10.3); Carbon Dioxide 32 mEq/L (23-29); Chloride 95 mEq/L (98-107); Glucose 94 mg/dL (70-105); Osmolality,Calculated 281 (280-300); Potassium 4.5 mEq/L (3.5-5.1); Sodium 133 mEq/L (136-145); eGFR For African Americans > 60 (> 60); eGFR For Non-African Americans > 60 (> 60)
[2018-01-26] MEDS: *HR* Heparin 5,000 UNIT/ML VIAL IVP PRN ×2 (04:49→19:34)
[2018-01-26] MEDS: Perphenazine 8 MG TABLET PO SCH (08:23)
[2018-01-26] MEDS: Metoprolol XL (24 HR) Succ 25 MG TAB.ER.24H PO SCH (08:23)
[2018-01-26] MEDS: Levofloxacin 750 MG/150 ML 750 MG/150 ML BAG IVPB SCH (08:23)
[2018-01-26] MEDS: Insulin LISPRO 300 UNITS/3 ML VIAL SQ SCH ×4 (08:24→22:42)
[2018-01-26] MEDS: Cholestyramine 4 GM POWD.PACK PO SCH ×2 (08:24→17:36)
[2018-01-26] MEDS: Tiotropium 18 MCG inhalation IH SCH (10:56)
[2018-01-26] MEDS: Furosemide 40 MG/4 ML VIAL IVP SCH (11:49)
[2018-01-26 12:04] LABS: Activated Partial Thrombo Time 114.7 Seconds (26.0-36.0)
[2018-01-26 12:24] LABS: Heparin anti-factor XA UFH 0.6 IU/mL (0.30-0.70)
--- NOTE | 2018-01-26 14:29 | Internal Med Progress Note ---
<Santi Alexander - Last Filed: 01/26/18 14:25> Date of Encounter: 01/26/18 Time of Encounter: 14:30 - Assessment and plan (1) Pulmonary embolism Current Visit: Yes Status: Suspected Assessment and plan: Pulmonary embolism could not be ruled out on patients CTA, however he is not clinically significant for this. Patient is currently on heparin drip, which we will transition to warfarin which the patient takes at home for blood clot prophylaxis. We will also order a lower extremity doppler. Qualifiers: Pulmonary embolism type: other Chronicity: acute Acute cor pulmonale presence: without acute cor pulmonale Qualified Code(s): I26.99 - Other pulmonary embolism without acute cor pulmonale (2) COPD (chronic obstructive pulmonary disease) Current Visit: No Status: Chronic Assessment and plan: chronic controlled COPD, we have the patient on his home meds 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 - Other emphysema (3) Diabetes Current Visit: No Status: Chronic Assessment and plan: chronic controlled diabetes, patient is on sliding scale insulin here Qualifiers: Diabetes mellitus type: type 2 Diabetes mellitus long term care social worker insulin use: without nursing home use Diabetes mellitus complication status: without complication Qualified Code(s): E11.9 - Type 2 diabetes mellitus without complications (4) HTN (hypertension) Current Visit: No Status: Chronic Assessment and plan: chronic controlled hypertension, on home metoprolol and lisinopril during admission Qualifiers: Hypertension type: essential hypertension Qualified Code(s): I10 - Essential (primary) hypertension (5) DVT prophylaxis Current Visit: No Status: Acute Assessment and plan: patient on heparin but will transition to warfarin (6) Obesity Current Visit: No Status: Chronic Assessment and plan: education Qualifiers: Obesity classification: adult class 3 (BMI >= 40) Serious obesity comorbidity presence: without serious comorbidity Body mass index: BMI 40.0- 44.9 Qualified Code(s): E66.9 - Obesity, unspecified; Z68.41 - Body mass index (BMI) 40.0-44.9, adult (7) CAD (coronary artery disease) Current Visit: No Status: Chronic Assessment and plan: chronic CAD controlled on metoprolol/lisinopril Qualifiers: Coronary Disease-Associated Artery/Lesion type: grindstone artery [place] vs. transplanted heart: grindstone heart Associated angina: without angina Qualified Code(s): I25.10 - Atherosclerotic heart disease of grindstone coronary artery without angina pectoris (8) Acute exacerbation of congestive heart failure Current Visit: Yes Status: Acute Assessment and plan: This patient presented for an acute exacerbation of his chronic systolic dysfunction EF20-25% CHF. He is still retaining fluid, we are going to increase his lasix and consult cardiology. He has been seen for this at [facility], he has refused surgical intervention. Qualifiers: Heart failure type: systolic Qualified Code(s): I50.23 - Acute on chronic systolic (congestive) heart failure - Time Spent With Patient Total time spent is greater than 50% in coordination of care (as documented) at patient's floor/unit and/or counseling patient: - Subjective Interval history: Patient sitting comfortably, denies shortness of breath, chest pain, dysuria, constipation, headache fever or chills. No acute events overnight. - Constitutional Vitals: Temp Pulse Resp BP Pulse Ox 97.7 F 71 18 93/60 98 01/26/18 11:13 01/26/18 11:13 01/26/18 11:13 01/26/18 11:13 01/26/18 12:08 General appearance: Present: cooperative, A&O X 3, pleasant, no acute distress, answers questions appropriately Exam: On exam patient is sitting in chair with nasal cannula. Alert and oriented x3 heart regular rate and rhythm with systolic ejection murmur but no rub or ping lungs clear to auscultation bilaterally abdomen soft and non tender except over site of previous herniorraphy, regular bowel sounds Bilateral lower extremities are significantly edematous without pitting with edema extending up to the groin, no signs of erythema or cellulitis Internal Medicine: Result - Labs CBC & Chem 7: 01/26/18 03:23 01/26/18 03:23 Labs: Short CBC 01/26/18 Range/Units 03:23 WBC 8.8 (4.3-11.1) K/mcL Hgb 13.2 (12.9-16.9) g/dL Hct 42.6 (37.5-50.1) % Plt Count 211 (140-400) K/mcL Neutrophils # 5.8 (1.6-8.9) K/mcL BMP 01/26/18 03:23 Sodium 133 L Potassium 4.5 Chloride 95 L Carbon Dioxide 32 H BUN 26 H Creatinine 0.94 Glucose 94 Calcium 9.2 - ABG Interpretation ABG results: PT/INR, D-dimer PT 14.0 Seconds (9.4-12.1) H 01/24/18 19:36 D-Dimer 1021 ng/mLFEU (0-500) H 01/24/18 19:36 Consult Discharge Plan - Plan Referrals: Zackary Hael MD [Primary Care Provider] - <Ag Fletcher - Last Filed: 01/26/18 18:17> Date of Encounter: 01/26/18 - Assessment and plan (1) COPD (chronic obstructive pulmonary disease) Current Visit: No Status: Chronic 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 - Other emphysema (2) Diabetes Current Visit: No Status: Chronic Qualifiers: Diabetes mellitus type: type 2 Diabetes mellitus long term care social worker insulin use: without long term care social worker use Diabetes mellitus complication status: without complication Qualified Code(s): E11.9 - Type 2 diabetes mellitus without complications (3) HTN (hypertension) Current Visit: No Status: Chronic Qualifiers: Hypertension type: essential hypertension Qualified Code(s): I10 - Essential (primary) hypertension (4) DVT prophylaxis Current Visit: No Status: Acute (5) Obesity Current Visit: No Status: Chronic Qualifiers: Obesity classification: adult class 3 (BMI >= 40) Serious obesity comorbidity presence: without serious comorbidity Body mass index: BMI 40.0- 44.9 Qualified Code(s): E66.9 - Obesity, unspecified; Z68.41 - Body mass index (BMI) 40.0-44.9, adult (6) CAD (coronary artery disease) Current Visit: No Status: Chronic Qualifiers: Coronary Disease-Associated Artery/Lesion type: grindstone artery [place] vs. transplanted heart: grindstone heart Associated angina: without angina Qualified Code(s): I25.10 - Atherosclerotic heart disease of [place]stone coronary artery without angina pectoris (7) Pulmonary embolism Current Visit: Yes Status: Suspected Qualifiers: Pulmonary embolism type: other Chronicity: acute Acute cor pulmonale presence: without acute cor pulmonale Qualified Code(s): I26.99 - Other pulmonary embolism without acute cor pulmonale (8) Acute exacerbation of congestive heart failure Current Visit: Yes Status: Acute Qualifiers: Heart failure type: systolic Qualified Code(s): I50.23 - Acute on chronic systolic (congestive) heart failure - Time Spent With Patient Total time spent is greater than 50% in coordination of care (as documented) at patient's floor/unit and/or counseling patient: - Constitutional Vitals: Temp Pulse Resp BP Pulse Ox 97.8 F 76 18 81/56 98 01/26/18 15:51 01/26/18 15:51 01/26/18 15:51 01/26/18 15:51 01/26/18 15:51 Internal Medicine: Result - Labs CBC & Chem 7: 01/26/18 03:23 01/26/18 03:23 Labs: Short CBC 01/26/18 Range/Units 03:23 WBC 8.8 (4.3-11.1) K/mcL Hgb 13.2 (12.9-16.9) g/dL Hct 42.6 (37.5-50.1) % Plt Count 211 (140-400) K/mcL Neutrophils # 5.8 (1.6-8.9) K/mcL BMP 01/26/18 03:23 Sodium 133 L Potassium 4.5 Chloride 95 L Carbon Dioxide 32 H BUN 26 H Creatinine 0.94 Glucose 94 Calcium 9.2 - ABG Interpretation ABG results: PT/INR, D-dimer PT 14.0 Seconds (9.4-12.1) H 01/24/18 19:36 D-Dimer 1021 ng/mLFEU (0-500) H 01/24/18 19:36 - Attending Attestation I examined this patient and my medical decision-making was reviewed with the Resident Physician. I agree with the documented findings, disposition and treatment plan as described except to the extent set forth below. Today patient breathing and edema relatively unchanged. He states he is in no acute distress. I appreciate bipedal pitting edema bilaterally on exam, 2+ and only slightly better since yesterdays exam 1. Acute decompensated systolic heart failure 2. Acute respiratory failure - likely heart failure, rule out PE. 3. History of LV thrombus - on coumadin which is subtherapeutic 4. CAD 5. DM type II 6. history of AK 7. Essential hypertension (history of) 8. COPD - not in acute exacerbation - continue fluid restriction, currently on IV Lasix but he is hypotensive currently. Will need to hold tomorrow dose of Lasix IV if no improvement in BP. - Patient has BP running 81/56 w HR 76. Hold parameters for Toprol. Discontinue Lisinopril. - Cardiology consulted, recommendations apprecaited - Echocardiogram pending. - Bridge coumadin to therapeutic level while on heparin drip - If this is thought to be from pulmonary embolism, will need echo verify no heart strain. May need repeat CTA chest when edema in lungs improve. He cannot tolerate laying flat for V/Q scan. Lower extremity U/S now to eval for DVT. - BIPAP prn dyspnea
[2018-01-26] MEDS ORDERED: Warfarin perPT PO PRN (18:00)
[2018-01-26] MEDS ORDERED: *HR* Warfarin 3 MG TABLET PO ONE (18:00)
[2018-01-26] MEDS: Heparin 25,000 UNIT/500 ML D5W 25,000 UNIT/500 ML BAG IVC SCH (18:11)
[2018-01-27 01:54] LABS: Basophils # 0.1 K/mcL (0.0-0.2); Basophils % 0.8 %; Eosinophils # 0.3 K/mcL (0.0-0.6); Eosinophils % 4.3 %; Hematocrit 40.4 % (37.5-50.1); Hemoglobin 12.4 g/dL (12.9-16.9); Immature Granulocytes % 0.1 % (0-4); Lymphocytes # 1.3 K/mcL (0.6-4.6); Mean Corpuscular HGB Conc 30.7 g/dL (31.6-35.5); Mean Corpuscular Hemoglobin 29.2 pg (28.0-33.3); Mean Corpuscular Volume 95.1 fL (83.0-100.0); Mean Platelet Volume 9.8 fL (9.4-12.4); Monocytes % 12.7 %; Platelet Count 182 K/mcL (140-400); Red Blood Count 4.25 M/mcL (4.19-5.50); Red Cell Distribution Width 14.6 % (11.5-14.5); Segmented Neutrophils % 65.1 %
[2018-01-27 02:13] LABS: BUN/Creatinine Ratio 31 (6-26); Blood Urea Nitrogen 25 mg/dL (8-23); Calcium 9.2 mg/dL (8.6-10.3); Carbon Dioxide 30 mEq/L (23-29); Chloride 96 mEq/L (98-107); Glucose 138 mg/dL (70-105); Osmolality,Calculated 277 (280-300); Potassium 4.6 mEq/L (3.5-5.1); Sodium 130 mEq/L (136-145); eGFR For African Americans > 60 (> 60); eGFR For Non-African Americans > 60 (> 60)
[2018-01-27 03:17] LABS: Activated Partial Thrombo Time 108.8 Seconds (26.0-36.0); INR 1.4; Prothrombin Time 15.2 Seconds (9.4-12.1)
[2018-01-27] MEDS ORDERED: Perflutren Lipid Microsphere 1.3 ML in 0.9 % Sodium Chloride 8.7 ML IVP ONE (07:53)
[2018-01-27] MEDS: Insulin LISPRO 300 UNITS/3 ML VIAL SQ SCH ×4 (09:44→20:11)
[2018-01-27] MEDS: Perphenazine 8 MG TABLET PO SCH (09:49)
[2018-01-27] MEDS: Metoprolol XL (24 HR) Succ 25 MG TAB.ER.24H PO SCH (09:49)
[2018-01-27] MEDS: Furosemide 40 MG/4 ML VIAL IVP SCH ×2 (09:49→20:09)
[2018-01-27] MEDS: Cholestyramine 4 GM POWD.PACK PO SCH ×2 (09:49→16:27)
[2018-01-27] MEDS: Tiotropium 18 MCG inhalation IH SCH (10:32)
--- NOTE | 2018-01-27 11:23 | Cardiology Consult Note ---
Date of Encounter: 01/27/18 Time of Encounter: 10:30 Assessment and Plan (1) Systolic heart failure Current Visit: Yes Status: Acute Acute on chronic CHF; reports NYHA class III-IV symptoms. Suspect possible fluid /dietary non-compliance. Hx of ICMP. LHC at [facility] 03/2017--s/p high risk PCI to prox and mid LAD and PTCA of diag. Repeat TTE this admission shows LVEF, 20-20%. 24 I&O: +900 mL; reports nearly 40 lb weight gain over the past 2 months. Patient reports abdominal distention has worsened since admission. Will increase Lasix to 40 mg BID, may need to continue to increase throughout hospitalization. Monitor kidney function/electrolytes closely. Continue betablocker, will hold MARILYNN-i given marginal BP as we are diuresing. Strict I&Os, daily weights (Standing), and Na/fluid restriction diet. Wrap LE with marilynn bandages. Will continue to follow. Has followed with EP in the outpatient setting, refused AICD; continues to refuse today. Recommend palliative care consult to discuss CODE status. Qualifiers: Heart failure chronicity: acute on chronic Qualified Code(s): I50.23 - Acute on chronic systolic (congestive) heart failure (2) Ischemic cardiomyopathy Current Visit: Yes Status: Acute As above. Hx of NSTEMI 03/2017--transfer to [facility] for CABG vs. high risk PCI given CMP. s/p high-risk PCI to LAD, PTCA diagonal. Continue plavix, BB, statin. (3) LV (left ventricular) mural thrombus Current Visit: Yes Status: Acute On Coumadin, INR followed by PCP. Continue heparin gtt for goal INR 2-3. (4) CAD (coronary artery disease) Current Visit: No Status: Chronic As above. No chest pain reported. Qualifiers: Coronary Disease-Associated Artery/Lesion type: resighini artery [place] vs. transplanted heart: res[place]ini heart Associated angina: without angina Qualified Code(s): I25.10 - Atherosclerotic heart disease of [place] coronary artery without angina pectoris Discussion w patient/family: The assessment and plan as outlined above was discussed with the patient and/or family members who expressed understanding and agreement. All questions were answered. Thank you for involving us in the care of your patient. Please call with any questions. The patient will be discussed and reviewed with Dr. Zackary Alejandro; changes to be made accordingly. History of Present Illness Consult date: 01/27/18 Requesting physician: Ag Fletcher Consult reason: CHF Chief complaint: Shortness of breath, LE edema History of present illness: Mr. Emmanuel is a 62 year old male with PMHx significant for ischemic cardiomyopathy with LVEF ~15-20%, LV thrombus on Coumadin, CAD s/p PCI, COPD, HTN, and DMII who presented to the ED with complaints of worsening shortness of breath, lower extremity edema, and increase in abdominal girth that has been ongoing for the past 2 months. Reports 40 lb weight gain as well in that time. States he follows strict diet at home including Na and fluid restricted. Reports compliance with all medications including coumadin (followed by PCP) and plavix. He denies chest pain or discomfort; denies dizziness or syncope. Cardiology consulted today for CHF. Has been admitted for several days, felt to have a possible PE. Prior CV testing: [facility] 03/2017: severe double vessel CAD, EF 10%--transferred to [facility] for high risk PCI TTE 07/2017: LVEF 20-25%, moderately dilated LV, severe global and segmental LV dysfunction, mobile thrombus seen in LV apex TTE 01/27/18: LVEF 20-25%, severe global diastolic dysfunction, severe global systolic dysfunction, mild PH Past Med Surg Social Fam HX - Past Medical History Attestation: Yes The following information was validated with the patient. Source: patient Medical history: cancer, COPD, coronary artery disease, diabetes, myocardial infarction, other Additional medical history: pancreatitis Psychiatric history: no psych history - Past Surgical History Surgical History: angioplasty/stent, cataract, herniorrhaphy, other Additional surgical history: x3 stents - Social History Smoking Status: Current every day smoker Smokeless Tobacco Status: No Alcohol use: none Drug use: none - Family History Father Adopted: No Living Status: Hx Family Cardiac Disorders: Yes Hx Family Respiratory Disorders: Yes Hx Family Cancer: Yes Hx Family GI Disorders: No Hx Family Endocrine Disorder: No Hx Family Neuromuscular Disorders: No Hx Family Neurologic Disorders: No Hx Family HEENT Disorders: No Hx Family Autoimmune Disorders: No Mother Adopted: No Family Member Ethnicity: Non- Living Status: Hx Family Cardiac Disorders: No Hx Family Respiratory Disorders: Yes Hx Family Cancer: Yes Hx Family GI Disorders: No Hx Family Endocrine Disorder: Yes Hx Family Neuromuscular Disorders: No Hx Family Neurologic Disorders: No Hx Family HEENT Disorders: No Hx Family Autoimmune Disorders: No Medications and Allergies Albuterol Sulfate [Albuterol Inhaler] 2 puff IH Q4HR PRN 05/17/15 [History] Ezetimibe [Zetia] 10 mg PO DAILY 05/17/15 [History] Metformin HCl [Glucophage] 1,000 mg PO BID 05/17/15 [History] Tiotropium [Spiriva] 18 mcg IH DAILY 05/17/15 [History] Clopidogrel [Plavix] 75 mg PO DAILY 10/27/17 [History] Furosemide [Lasix] 20 mg PO DAILY 10/27/17 [History] Lisinopril [Zestril] 2.5 mg PO DAILY 10/27/17 [History] Metoprolol Succinate [Toprol Xl] 25 mg PO DAILY 10/27/17 [History] Glimepiride [Amaryl] 2 mg PO 0800 15 Days #15 tablet 11/02/17 [Rx] Lipase/Protease/Amylase [Creon Dr 12,000 Units Capsule] 1 cap PO BID 11/10/17 [ History] Promethazine [Phenergan] 25 mg PO BID 11/10/17 [History] Morphine Immed Rel [Morphine Sulfate] 15 mg PO Q4HR PRN 3 Days #10 tab 11/13/17 [Rx] Cholestyramine [Cholestyramine] 4 g PO BID 01/24/18 [History] Perphenazine [Trilafon] 8 mg PO DAILY 01/24/18 [History] Warfarin Sodium [Warfarin Sodium] 9 mg PO DAILY 01/24/18 [History] 3 Allergy/AdvReac Type Severity Reaction Status Date / Time loxapine [From Loxitane] Allergy See Verified 01/24/18 19:21 Comments betamethasone AdvReac Hives Verified 01/24/18 19:21 [From Lotrisone] clotrimazole [From Lotrisone] AdvReac Hives Verified 01/24/18 19:21 Sulfa (Sulfonamide AdvReac Hives Verified 01/24/18 19:21 Antibiotics) All Systems Review: The remainder of the systems were reviewed and are negative - Cardiovascular Cardiovascular: as per HPI Physical Examination Vital Signs, Last 4 Hours Pulse Resp BP Pulse Ox 01/27/18 07:29 70 15 100/79 97 General: Conversant, No Apparent Distress HEENT: Atraumatic, Normocephaly, Mucus Membranes Moist Cardiac: Reg Rate and Rhythm, Normal S1 and S2 Lungs: Other (Decreased) Neuro: Alert and responsive Abdomen: Soft, Other (distended) Skin: No rashes noted on visualized skin Musculoskeletal: No Chest Wall Tenderness Extremities: Other (significant LE edema +2-3 ) Results 01/27/18 01:36 01/27/18 01:36 Lab Results 01/26/18 01/26/18 01/27/18 11:11 17:54 01:36 WBC 7.7 Hgb 12.4 L Hct 40.4 Plt Count 182 INR APTT 114.7 H* D 51.4 H D Sodium Potassium Chloride Carbon Dioxide BUN Creatinine Glucose Calcium 01/27/18 01/27/18 01:36 02:44 WBC Hgb Hct Plt Count INR 1.4 APTT 108.8 H D Sodium 130 L Potassium 4.6 Chloride 96 L Carbon Dioxide 30 H BUN 25 H Creatinine 0.81 Glucose 138 H Calcium 9.2 Active Medications Albuterol Sulfate (Albuterol Inhaler) 2 puff IH Q4HR PRN PRN Reason: Shortness Of Breath Stop: 07/27/18 00:32 Lipase/Protease/Amylase (Creon Dr 6,000 Units Capsule) 2 each PO BID [facility] Stop: 07/27/18 09:01 Last Admin: 01/27/18 09:49 Dose: 2 each Cholestyramine Resin (Cholestyramine) 4 gm PO BIDAC [facility] Stop: 07/27/18 07:31 Last Admin: 01/27/18 09:49 Dose: 4 gm Clopidogrel Bisulfate (Plavix) 75 mg PO DAILY [facility] Stop: 07/27/18 09:01 Last Admin: 01/27/18 09:49 Dose: 75 mg Dextrose/Water (Dextrose 50% (Syg)) 25 ml IVP AD PRN PRN Reason: Hypoglycemia Stop: 07/27/18 11:19 Furosemide (Lasix) 40 mg IVP BID [facility] Stop: 07/29/18 21:01 Glucagon (Glucagen) 1 mg IM ONCE PRN PRN Reason: Hypoglycemia Stop: 07/27/18 11:19 Glucose (Gluctose) 15 gm PO ONCE PRN PRN Reason: Hypoglycemia Stop: 07/27/18 11:19 Glucose (Gluctose) 30 gm PO ONCE PRN PRN Reason: Hypoglycemia Stop: 07/27/18 11:19 Heparin Sodium (Porcine) (Heparin) 8,800 unit 70 unit/kg (8800 unit) IVP Q6HR PRN PRN Reason: SEE COMMENTS Stop: 07/26/18 23:29 Heparin Sodium (Porcine) (Heparin) 4,400 unit 35 unit/kg (4400 unit) IVP Q6H PRN PRN Reason: SEE COMMENTS Stop: 07/26/18 23:29 Last Admin: 01/27/18 12:23 Dose: 4,400 unit Heparin Sodium/Dextrose (Heparin 25,000 Unit/500 Ml D5w) 25,000 unit in 500 mls @ 35.053 mls/hr IVC .[id number] CHARMAINE; 14 UNIT/KG/HR PRN Reason: Protocol Stop: 07/26/18 23:31 Last Titration: 01/27/18 12:24 Dose: 9.94 unit/kg/hr, 24.9 mls/hr Dextrose (Dextrose 5%) 1,000 mls @ 100 mls/hr IVC .Q10H PRN PRN Reason: HYPOGLYCEMIA Stop: 07/27/18 11:19 Insulin Human Lispro (Humalog) 0 units SQ HS CHARMAINE PRN Reason: Protocol Stop: 07/27/18 21:01 Last Admin: 01/26/18 22:42 Dose: Not Given Insulin Human Lispro (Humalog) 0 units SQ TIDAC [facility] PRN Reason: Protocol Stop: 07/27/18 11:31 Last Admin: 01/27/18 12:18 Dose: Not Given Metoprolol Succinate (Toprol Xl) 25 mg PO DAILY [facility] Stop: 07/27/18 09:01 Last Admin: 01/27/18 09:49 Dose: 25 mg Morphine Sulfate (Morphine Sulfate) 15 mg PO Q4HR PRN PRN Reason: Pain Stop: 07/27/18 00:32 Perphenazine (Trilafon) 8 mg PO DAILY [facility] Stop: 07/27/18 09:01 Last Admin: 01/27/18 09:49 Dose: 8 mg Pharmacy Profile Note (Patient Taking Own Medication) 1 each PO DAILY [facility] Stop: 07/27/18 09:01 Last Admin: 01/27/18 09:50 Dose: Not Given Promethazine HCl (Phenergan) 25 mg PO BID [facility] Stop: 07/27/18 09:01 Last Admin: 01/27/18 09:49 Dose: 25 mg Tiotropium [place] (Spiriva) 18 mcg IH DAILYR [facility] Stop: 07/27/18 10:01 Last Admin: 01/27/18 10:32 Dose: 18 mcg Warfarin Sodium (Coumadin Perpt) 1 each PO DAILY@1800 PRN PRN Reason: SEE COMMENTS Stop: 07/28/18 18:01 - Imaging and Cardiology Echo: report reviewed Other Results: 12 hour tele: avg HR=75 SR. - EKG Interpretation EKG results cardiology: personally reviewed Consult Discharge Plan - Plan Referrals: Ucci,Zackary Barth MD [Primary Care Provider] -
[2018-01-27] MEDS: *HR* Heparin 5,000 UNIT/ML VIAL IVP PRN (12:23)
--- NOTE | 2018-01-27 14:42 | Internal Med Progress Note ---
<Santi Alexander - Last Filed: 01/27/18 15:06> Date of Encounter: 01/27/18 Time of Encounter: 14:37 - Assessment and plan (1) Acute exacerbation of congestive heart failure Current Visit: Yes Status: Acute Assessment and plan: Patient is being diuresed with lasix 40mg, cardiology is involved, patient looking much better today, echocardiogram showed EF 20-25% severe diastolic and systolic failure, we will continue to stabilize and monitor fluid status Qualifiers: Heart failure type: systolic Qualified Code(s): I50.23 - Acute on chronic systolic (congestive) heart failure (2) Pulmonary embolism Current Visit: Yes Status: Suspected Assessment and plan: Venous doppler was negative for thrombus lowering suspicion of PE, patient is not having any clinical signs or symptoms of PE, he cannot lay flat for a VQ scan and CTA on admission was inconclusive, will continue to monitor at this time Qualifiers: Pulmonary embolism type: other Chronicity: acute Acute cor pulmonale presence: without acute cor pulmonale Qualified Code(s): I26.99 - Other pulmonary embolism without acute cor pulmonale (3) COPD (chronic obstructive pulmonary disease) Current Visit: No Status: Chronic Assessment and plan: chronic and controlled, home meds continued 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 - Other emphysema (4) Diabetes Current Visit: No Status: Chronic Assessment and plan: chronic and controlled, sliding scale insulin Qualifiers: Diabetes mellitus type: type 2 Diabetes mellitus intermission coordinator insulin use: without skilled nursing use Diabetes mellitus complication status: without complication Qualified Code(s): E11.9 - Type 2 diabetes mellitus without complications (5) HTN (hypertension) Current Visit: No Status: Chronic Assessment and plan: chronic and controlled on home medications, home meds discontinued for the time being due to hypotension during diuresis Qualifiers: Hypertension type: essential hypertension Qualified Code(s): I10 - Essential (primary) hypertension (6) DVT prophylaxis Current Visit: No Status: Acute Assessment and plan: patient is being bridged to warfarin, he has been covered by heparin since admission (7) Obesity Current Visit: No Status: Chronic Assessment and plan: patient educated on diabetic and heart failure diet Qualifiers: Obesity classification: adult class 3 (BMI >= 40) Serious obesity comorbidity presence: without serious comorbidity Body mass index: BMI 40.0- 44.9 Qualified Code(s): E66.9 - Obesity, unspecified (8) CAD (coronary artery disease) Current Visit: No Status: Chronic Assessment and plan: chronic and controlled on home meds, patient has refused AICD and surgical intervention Qualifiers: Coronary Disease-Associated Artery/Lesion type: [place] artery [place] vs. transplanted heart: [place] heart Associated angina: without angina Qualified Code(s): I25.10 - Atherosclerotic heart disease of [place] coronary artery without angina pectoris (9) Intertriginous dermatitis associated with moisture Current Visit: Yes Status: Acute Assessment and plan: Communicated with nurse about hygiene assisstance, Nystatin powder ordered - Time Spent With Patient Total time spent is greater than 50% in coordination of care (as documented) at patient's floor/unit and/or counseling patient: - Subjective Interval history: Patient has no acute complaints this morning, nursing reports no acute events overnight. He denies shortness of breath or chest pain, nausea or vomiting. He does complain of intertriginous pannus irritation which he normally treats at home. - Constitutional Vitals: Temp Pulse Resp BP Pulse Ox 97.7 F 70 16 100/79 98 01/27/18 05:14 01/27/18 07:29 01/27/18 10:32 01/27/18 07:29 01/27/18 10:32 General appearance: Present: cooperative, A&O X 3, pleasant, no acute distress, answers questions appropriately Exam: Patient in no acute distress alert and oriented x3 heart regular rate and rhythm with systolic ejection murmur lungs clear to auscultation bilaterally abdomen soft, tender inferiorly due to hernia/previous hernia surgery intertriginous area under pannus is erythematous and tender but not open bilateral lower extremity edema without tenderness or excessive warmth Internal Medicine: Result - Labs CBC & Chem 7: 01/27/18 01:36 01/27/18 01:36 Labs: Short CBC 01/27/18 Range/Units 01:36 WBC 7.7 (4.3-11.1) K/mcL Hgb 12.4 L (12.9-16.9) g/dL Hct 40.4 (37.5-50.1) % Plt Count 182 (140-400) K/mcL Neutrophils # 5.0 (1.6-8.9) K/mcL BMP 01/27/18 01:36 Sodium 130 L Potassium 4.6 Chloride 96 L Carbon Dioxide 30 H BUN 25 H Creatinine 0.81 Glucose 138 H Calcium 9.2 - ABG Interpretation ABG results: PT/INR, D-dimer PT 15.2 Seconds (9.4-12.1) H 01/27/18 02:44 D-Dimer 1021 ng/mLFEU (0-500) H 01/24/18 19:36 - Impressions Impressions Echocardiogram 01/27/18 16:35 Impressions: LVEF 20-25%. Severe left ventricular diastolic dysfunction. Severe global left ventricular systolic dysfunction. Mild pulmonary hypertension. Moderately dilated left atrium. Findings: Right Atrium * Normal right atrial size. Interatrial Septum * No evidence of PFO by color Doppler. Aorta * Normally sized aortic root. Pericardium * The pericardium appears normal. Study Quality * Technically sub-optimal due to body habitus. Left Ventricle * Mild concentric left ventricular hypertrophy. * Severe left ventricular diastolic dysfunction. * LVEF 20-25%. * Severe global left ventricular systolic dysfunction. * There is no LV thrombus. * Definity echo contrast was used. Pulmonic Valve * No pulmonic stenosis. * Pulmonic valve not well visualized. * Mild pulmonic regurgitation. Aortic Valve * No aortic regurgitation. * No aortic stenosis. * Aortic valve not well visualized. Tricuspid Valve * Estimated RVSP is 37 mmHg. * Estimated RA pressure is 0-5 mmHg. * Mild pulmonary hypertension. * Trace tricuspid regurgitation. * No tricuspid stenosis. Mitral Valve * Normal mitral valve structure. * No mitral stenosis. * Mild mitral regurgitation. Left Atrium * Moderately dilated left atrium. Right Ventricle * poorly visualized, appears to be hypokinetic IVC * Normal IVC dimensions and inspiratory collapse. - Diagnostic Studies Venous US Additional comments: Findings Venous Duplex Results: Right: Venous imaging of the lower extremity reveals full patency and normal vessel compressibility of the right distal iliac, right common femoral, right superficial femoral, right popliteal, right posterior tibial, right peroneal, right great saphenous and right lesser saphenous. Doppler signals in the evaluated veins were normal. Left: Venous imaging of the lower extremity reveals full patency and normal vessel compressibility of the left distal iliac, left common femoral, left superficial femoral, left popliteal, left posterior tibial, left peroneal, left great saphenous and left lesser saphenous. Doppler signals in the evaluated veins were normal. Other Images Additional comments: EV/EV echocardiogram w enhance Impressions: LVEF 20-25%. Severe left ventricular diastolic dysfunction. Severe global left ventricular systolic dysfunction. Mild pulmonary hypertension. Moderately dilated left atrium. Consult Discharge Plan - Plan Referrals: Zackary Hale MD [Primary Care Provider] - <Ag Fletcher - Last Filed: 01/27/18 17:34> Date of Encounter: 01/27/18 - Assessment and plan (1) COPD (chronic obstructive pulmonary disease) Current Visit: No Status: Chronic 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 - Other emphysema (2) Diabetes Current Visit: No Status: Chronic Qualifiers: Diabetes mellitus type: type 2 Diabetes mellitus skilled nursing insulin use: without intermission coordinator use Diabetes mellitus complication status: without complication Qualified Code(s): E11.9 - Type 2 diabetes mellitus without complications (3) HTN (hypertension) Current Visit: No Status: Chronic Qualifiers: Hypertension type: essential hypertension Qualified Code(s): I10 - Essential (primary) hypertension (4) DVT prophylaxis Current Visit: No Status: Acute (5) Obesity Current Visit: No Status: Chronic Qualifiers: Obesity classification: adult class 3 (BMI >= 40) Serious obesity comorbidity presence: without serious comorbidity Body mass index: BMI 40.0- 44.9 (6) CAD (coronary artery disease) Current Visit: No Status: Chronic Qualifiers: Coronary Disease-Associated Artery/Lesion type: [place] artery [place] vs. transplanted heart: [place] heart Associated angina: without angina Qualified Code(s): I25.10 - Atherosclerotic heart disease of [place] coronary artery without angina pectoris (7) Pulmonary embolism Current Visit: Yes Status: Suspected Qualifiers: Pulmonary embolism type: other Chronicity: acute Acute cor pulmonale presence: without acute cor pulmonale Qualified Code(s): I26.99 - Other pulmonary embolism without acute cor pulmonale (8) Acute exacerbation of congestive heart failure Current Visit: Yes Status: Acute Qualifiers: Heart failure type: systolic Qualified Code(s): I50.23 - Acute on chronic systolic (congestive) heart failure (9) Intertriginous dermatitis associated with moisture Current Visit: Yes Status: Acute - Time Spent With Patient Total time spent is greater than 50% in coordination of care (as documented) at patient's floor/unit and/or counseling patient: - Constitutional Vitals: Temp Pulse Resp BP Pulse Ox 97.7 F 70 16 100/79 98 01/27/18 05:14 01/27/18 07:29 01/27/18 10:32 01/27/18 07:29 01/27/18 10:32 Internal Medicine: Result - Labs CBC & Chem 7: 01/27/18 01:36 01/27/18 01:36 Labs: Short CBC 01/27/18 Range/Units 01:36 WBC 7.7 (4.3-11.1) K/mcL Hgb 12.4 L (12.9-16.9) g/dL Hct 40.4 (37.5-50.1) % Plt Count 182 (140-400) K/mcL Neutrophils # 5.0 (1.6-8.9) K/mcL BMP 01/27/18 01:36 Sodium 130 L Potassium 4.6 Chloride 96 L Carbon Dioxide 30 H BUN 25 H Creatinine 0.81 Glucose 138 H Calcium 9.2 - ABG Interpretation ABG results: PT/INR, D-dimer PT 15.2 Seconds (9.4-12.1) H 01/27/18 02:44 D-Dimer 1021 ng/mLFEU (0-500) H 01/24/18 19:36 - Impressions Impressions Echocardiogram 01/27/18 16:35 Impressions: LVEF 20-25%. Severe left ventricular diastolic dysfunction. Severe global left ventricular systolic dysfunction. Mild pulmonary hypertension. Moderately dilated left atrium. Findings: Right Atrium * Normal right atrial size. Interatrial Septum * No evidence of PFO by color Doppler. Aorta * Normally sized aortic root. Pericardium * The pericardium appears normal. Study Quality * Technically sub-optimal due to body habitus. Left Ventricle * Mild concentric left ventricular hypertrophy. * Severe left ventricular diastolic dysfunction. * LVEF 20-25%. * Severe global left ventricular systolic dysfunction. * There is no LV thrombus. * Definity echo contrast was used. Pulmonic Valve * No pulmonic stenosis. * Pulmonic valve not well visualized. * Mild pulmonic regurgitation. Aortic Valve * No aortic regurgitation. * No aortic stenosis. * Aortic valve not well visualized. Tricuspid Valve * Estimated RVSP is 37 mmHg. * Estimated RA pressure is 0-5 mmHg. * Mild pulmonary hypertension. * Trace tricuspid regurgitation. * No tricuspid stenosis. Mitral Valve * Normal mitral valve structure. * No mitral stenosis. * Mild mitral regurgitation. Left Atrium * Moderately dilated left atrium. Right Ventricle * poorly visualized, appears to be hypokinetic IVC * Normal IVC dimensions and inspiratory collapse. - Attending Attestation I examined this patient and my medical decision-making was reviewed with the Resident Physician. I agree with the documented findings, disposition and treatment plan as described except to the extent set forth below. Patient states he is feeling better. Edema today does show improvement from my exam yesterday. Resp exam shows rales and poor inspiratory effort with decreased breath sounds at bases. Sodium level noted 130, was 133 yesterday, possibly from fluid overload. BP more stable today. Continue Diuresis with caution to BP Cardiology consulted and recommendations appreciated Continue to bridge to heparin History of LV thrombus - on coumadin Possible PE (though not absolutely certain) - on coumadin DC heparin drip with therapeutic
[2018-01-27] MEDS: Heparin 25,000 UNIT/500 ML D5W 25,000 UNIT/500 ML BAG IVC SCH (16:27)
[2018-01-27] MEDS: Nystatin POWDER 30 GM BOTTLE TP SCH ×2 (16:28→20:12)
[2018-01-27] MEDS ORDERED: *HR* Warfarin 3 MG TABLET PO ONE (18:00)
[2018-01-28 01:08] LABS: Basophils % 0.5 %; Eosinophils # 0.3 K/mcL (0.0-0.6); Hematocrit 41.8 % (37.5-50.1); Immature Granulocytes % 0.3 % (0-4); Lymphocytes # 1.2 K/mcL (0.6-4.6); Lymphocytes % 15.2 %; Mean Corpuscular HGB Conc 31.1 g/dL (31.6-35.5); Mean Corpuscular Volume 96.3 fL (83.0-100.0); Mean Platelet Volume 9.9 fL (9.4-12.4); Monocytes % 12.7 %; Neutrophils # 5.1 K/mcL (1.6-8.9); Platelet Count 185 K/mcL (140-400); Red Blood Count 4.34 M/mcL (4.19-5.50); Red Cell Distribution Width 14.5 % (11.5-14.5); Segmented Neutrophils % 67.3 %
[2018-01-28 01:15] LABS: INR 1.4; Prothrombin Time 16.1 Seconds (9.4-12.1)
[2018-01-28 01:18] LABS: Activated Partial Thrombo Time 68.1 Seconds (26.0-36.0)
[2018-01-28 05:04] LABS: BUN/Creatinine Ratio 28 (6-26); Blood Urea Nitrogen 22 mg/dL (8-23); Calcium 8.7 mg/dL (8.6-10.3); Carbon Dioxide 33 mEq/L (23-29); Chloride 97 mEq/L (98-107); Glucose 138 mg/dL (70-105); Osmolality,Calculated 282 (280-300); Potassium 4.5 mEq/L (3.5-5.1); Sodium 133 mEq/L (136-145); eGFR For African Americans > 60 (> 60); eGFR For Non-African Americans > 60 (> 60)
[2018-01-28] MEDS: Tiotropium 18 MCG inhalation IH SCH (07:57)
[2018-01-28] MEDS: Insulin LISPRO 300 UNITS/3 ML VIAL SQ SCH ×4 (09:48→21:54)
[2018-01-28] MEDS: Metoprolol XL (24 HR) Succ 25 MG TAB.ER.24H PO SCH (09:56)
[2018-01-28] MEDS: Nystatin POWDER 30 GM BOTTLE TP SCH ×2 (09:56→22:09)
[2018-01-28] MEDS: Perphenazine 8 MG TABLET PO SCH (09:56)
[2018-01-28] MEDS: Cholestyramine 4 GM POWD.PACK PO SCH ×2 (09:56→16:45)
[2018-01-28] MEDS: Furosemide 40 MG/4 ML VIAL IVP SCH ×2 (09:57→21:53)
--- NOTE | 2018-01-28 10:23 | Cardiology Progress Note ---
Date of Encounter: 01/28/18 Time of Encounter: 08:30 Assessment and Plan (1) Systolic heart failure Current Visit: Yes Status: Acute Acute on chronic CHF; reports NYHA class III-IV symptoms. Suspect possible fluid /dietary non-compliance. Hx of ICMP. [facility] 03/2017--s/p high risk PCI to prox and mid LAD and PTCA of diag. Repeat TTE this admission shows LVEF, 20-20%. 24 I&O: +1094 mL; weight up 0.5 kg per I&Os. Still with significant volume overload on exam. reports nearly 40 lb weight gain over the past 2 months. Patient reports abdominal distention has worsened since admission. Continue BID IV Lasix, discussed with Dr. Elkins, will add Zaroxolyn x1 dose today, may need to continue to increase throughout hospitalization. Monitor kidney function/electrolytes closely. Continue betablocker, will hold MARILYNN-i given marginal BP as we are diuresing. Strict I&Os, daily weights (Standing), and Na/fluid restriction diet. Wrap LE with marilynn bandages. Will continue to follow. Has followed with EP in the outpatient setting, refused AICD; continues to refuse today. Recommend palliative care consult to discuss CODE status. Qualifiers: Heart failure chronicity: acute on chronic Qualified Code(s): I50.23 - Acute on chronic systolic (congestive) heart failure (2) Ischemic cardiomyopathy Current Visit: Yes Status: Acute As above. Hx of NSTEMI 03/2017--transfer to [facility] for CABG vs. high risk PCI given CMP. s/p high-risk PCI to LAD, PTCA diagonal. Continue plavix, BB, statin. (3) LV (left ventricular) mural thrombus Current Visit: Yes Status: Acute On Coumadin, INR followed by PCP. Continue heparin gtt for goal INR 2-3. (4) CAD (coronary artery disease) Current Visit: No Status: Chronic As above. No chest pain reported. Qualifiers: Coronary Disease-Associated Artery/Lesion type: [place] artery [place] vs. transplanted heart: [place] heart Associated angina: without angina Qualified Code(s): I25.10 - Atherosclerotic heart disease of [place] coronary artery without angina pectoris Discussion w patient/family: The assessment and plan as outlined above was discussed with the patient and/or family members who expressed understanding and agreement. All questions were answered. Thank you for involving us in the care of your patient. Please call with any questions. The patient will be discussed and reviewed with Dr. Elkins; changes to be made accordingly. Subjective Principal diagnosis: ICMP Interval history: Seen and examined. Reports he feels better today. Still with significant volume overload upon exam. No chest pain reported. Objective Vital Signs, Last 4 Hours Temp Pulse Resp BP Pulse Ox 01/28/18 07:58 18 96 01/28/18 07:20 97.6 F 72 18 94/59 97 General: Conversant, No Apparent Distress, Other (morbidly obese) Cardiac: Reg Rate and Rhythm, Normal S1 and S2 Lungs: Other (Decreased bibasilar) Neuro: Alert and responsive Abdomen: Other (large, distended) Skin: No rashes noted on visualized skin Musculoskeletal: No Chest Wall Tenderness Extremities: Other (+2-3 BLE edema to knees) Results 01/28/18 00:50 01/28/18 04:10 Lab Results 01/27/18 01/27/18 01/28/18 11:16 18:17 00:50 WBC 7.6 Hgb 13.0 Hct 41.8 Plt Count 185 INR APTT 44.9 H D 66.2 H Sodium Potassium Chloride Carbon Dioxide BUN Creatinine Glucose Calcium 01/28/18 01/28/18 00:50 04:10 WBC Hgb Hct Plt Count INR 1.4 APTT 68.1 H Sodium 133 L Potassium 4.5 Chloride 97 L Carbon Dioxide 33 H BUN 22 Creatinine 0.79 Glucose 138 H Calcium 8.7 Active Medications Albuterol Sulfate (Albuterol Inhaler) 2 puff IH Q4HR PRN PRN Reason: Shortness Of Breath Stop: 07/27/18 00:32 Lipase/Protease/Amylase (Omid Chakraborty 6,000 Units Capsule) 2 each PO BID CHARMAINE Stop: 07/27/18 09:01 Last Admin: 01/28/18 09:56 Dose: 2 each Cholestyramine Resin (Cholestyramine) 4 gm PO BIDAC CHARMAINE Stop: 07/27/18 07:31 Last Admin: 01/28/18 09:56 Dose: 4 gm Clopidogrel Bisulfate (Plavix) 75 mg PO DAILY CHARMAINE Stop: 07/27/18 09:01 Last Admin: 01/28/18 09:56 Dose: 75 mg Dextrose/Water (Dextrose 50% (Syg)) 25 ml IVP AD PRN PRN Reason: Hypoglycemia Stop: 07/27/18 11:19 Furosemide (Lasix) 40 mg IVP BID CHARMAINE Stop: 07/29/18 21:01 Last Admin: 01/28/18 09:57 Dose: 40 mg Glucagon (Glucagen) 1 mg IM ONCE PRN PRN Reason: Hypoglycemia Stop: 07/27/18 11:19 Glucose (Gluctose) 15 gm PO ONCE PRN PRN Reason: Hypoglycemia Stop: 07/27/18 11:19 Glucose (Gluctose) 30 gm PO ONCE PRN PRN Reason: Hypoglycemia Stop: 07/27/18 11:19 Heparin Sodium (Porcine) (Heparin) 8,800 unit 70 unit/kg (8800 unit) IVP Q6HR PRN PRN Reason: SEE COMMENTS Stop: 07/26/18 23:29 Heparin Sodium (Porcine) (Heparin) 4,400 unit 35 unit/kg (4400 unit) IVP Q6H PRN PRN Reason: SEE COMMENTS Stop: 07/26/18 23:29 Last Admin: 01/27/18 12:23 Dose: 4,400 unit Heparin Sodium/Dextrose (Heparin 25,000 Unit/500 Ml D5w) 25,000 unit in 500 mls @ 35.053 mls/hr IVC .[id number] CHARMAINE; 14 UNIT/KG/HR PRN Reason: Protocol Stop: 07/26/18 23:31 Last Titration: 01/27/18 19:07 Dose: 9.94 unit/kg/hr, 24.9 mls/hr Dextrose (Dextrose 5%) 1,000 mls @ 100 mls/hr IVC .Q10H PRN PRN Reason: HYPOGLYCEMIA Stop: 07/27/18 11:19 Insulin Human Lispro (Humalog) 0 units SQ HS [facility] PRN Reason: Protocol Stop: 07/27/18 21:01 Last Admin: 01/27/18 20:11 Dose: Not Given Insulin Human Lispro (Humalog) 0 units SQ TIDAC [facility] PRN Reason: Protocol Stop: 07/27/18 11:31 Last Admin: 01/28/18 09:48 Dose: Not Given Metolazone (Zaroxolyn) 2.5 mg PO ONCE ONE Stop: 01/28/18 10:31 Metoprolol Succinate (Toprol Xl) 25 mg PO DAILY [facility] Stop: 07/27/18 09:01 Last Admin: 01/28/18 09:56 Dose: 25 mg Morphine Sulfate (Morphine Sulfate) 15 mg PO Q4HR PRN PRN Reason: Pain Stop: 07/27/18 00:32 Nystatin (Nystop) 1 appl TP BID [facility] Stop: 07/29/18 13:31 Last Admin: 01/28/18 09:56 Dose: 1 appl Perphenazine (Trilafon) 8 mg PO DAILY CHARMAINE Stop: 07/27/18 09:01 Last Admin: 01/28/18 09:56 Dose: 8 mg Pharmacy Profile Note (Patient Taking Own Medication) 1 each PO DAILY [facility] Stop: 07/27/18 09:01 Last Admin: 01/27/18 09:50 Dose: Not Given Promethazine HCl (Phenergan) 25 mg PO BID [facility] Stop: 07/27/18 09:01 Last Admin: 01/28/18 09:56 Dose: 25 mg Tiotropium [place] (Spiriva) 18 mcg IH DAILYR [facility] Stop: 07/27/18 10:01 Last Admin: 01/28/18 07:57 Dose: 18 mcg Warfarin Sodium (Coumadin Perpt) 1 each PO DAILY@1800 PRN PRN Reason: SEE COMMENTS Stop: 07/28/18 18:01 - Imaging and Cardiology Echo: report reviewed Cardiac cath: report reviewed Other Results: 12 hour tele: avg HR=76 SR. - EKG Interpretation EKG results cardiology: personally reviewed Consult Discharge Plan - Plan Referrals: [facility] – [place], [place],Zackary Barth MD [Primary Care Provider] -
[2018-01-28] MEDS ORDERED: metOLazone 2.5 MG TABLET PO ONE (10:30)
[2018-01-28 10:48] LABS: Magnesium 1.8 mg/dL (1.6-2.6)
--- NOTE | 2018-01-28 13:49 | Internal Med Progress Note ---
<Santi Alexander - Last Filed: 01/28/18 13:46> Date of Encounter: 01/28/18 Time of Encounter: 13:46 - Assessment and plan (1) Acute exacerbation of congestive heart failure Current Visit: Yes Status: Acute Assessment and plan: The plan is to continue to diurese this patient with iv Lasix 40mg BID to relieve his fluid overload. He has made significant progress but will likely need several more days of diuresis. Cardiology has been involved as well as palliative care, to determine with the patient his care goals. His lisinopril is being held because of issues with hypotension during his diuresis. We are getting daily labs to monitor his electrolytes and kidney function. Qualifiers: Heart failure type: systolic Qualified Code(s): I50.23 - Acute on chronic systolic (congestive) heart failure (2) Pulmonary embolism Current Visit: Yes Status: Suspected Assessment and plan: Pulmonary embolism was suspected in this patient based on unspecific filling defects on CTA at admission. The patient could not lie flat for VQ scan, but he had negative bilateral lower extremity dopplers and is currently anticoagulated on heparin, bridging to warfarin. He does not exhibit PE symtoms and is not clinically significant for PE signs. We will continue to monitor. Qualifiers: Pulmonary embolism type: other Chronicity: acute Acute cor pulmonale presence: without acute cor pulmonale Qualified Code(s): I26.99 - Other pulmonary embolism without acute cor pulmonale (3) COPD (chronic obstructive pulmonary disease) Current Visit: No Status: Chronic Assessment and plan: Chronic and controlled on home meds. The patient has been well maintained on 2L nasal cannula during admission without issues. 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 - Other emphysema (4) Diabetes Current Visit: No Status: Chronic Assessment and plan: chronic, patient is on sliding scale insulin during admission Qualifiers: Diabetes mellitus type: type 2 Diabetes mellitus terminal press operator insulin use: without terminal press operator use Diabetes mellitus complication status: without complication Qualified Code(s): E11.9 - Type 2 diabetes mellitus without complications (5) HTN (hypertension) Current Visit: No Status: Chronic Assessment and plan: Chronic and controlled on home meds, lisinopril is being held here due to hypotension during diuresis Qualifiers: Hypertension type: essential hypertension Qualified Code(s): I10 - Essential (primary) hypertension (6) DVT prophylaxis Current Visit: No Status: Acute Assessment and plan: Patient anticoagulated on heparin, bridging to warfarin (7) Obesity Current Visit: No Status: Chronic Assessment and plan: Chronic, patient has difficulty with diet education Qualifiers: Obesity classification: adult class 3 (BMI >= 40) Serious obesity comorbidity presence: without serious comorbidity Body mass index: BMI 40.0- 44.9 Qualified Code(s): E66.9 - Obesity, unspecified; Z68.41 - Body mass index (BMI) 40.0-44.9, adult (8) CAD (coronary artery disease) Current Visit: No Status: Chronic Assessment and plan: chronic and controlled on home medications Qualifiers: Coronary Disease-Associated Artery/Lesion type: [place] artery [place] vs. transplanted heart: [place] heart Associated angina: without angina Qualified Code(s): I25.10 - Atherosclerotic heart disease of [place] coronary artery without angina pectoris (9) Intertriginous dermatitis associated with moisture Current Visit: Yes Status: Chronic Assessment and plan: Patient chronically has this issue at home, we are treating with nystatin powder BID - Time Spent With Patient Total time spent is greater than 50% in coordination of care (as documented) at patient's floor/unit and/or counseling patient: - Subjective Interval history: No acute events overnight. Had long discussion with patient about his disease process and attempted to educate him about his course of care. He seemed to understand the severity of his heart failure, and agreed to a palliative care consult.. Cardiology has also discussed this with him and recommended a palliative care consult, and discussed the idea of AICD implantation, which he still seems to refuse. He denied any chest pain, shortness of breath, nausea/ vomiting/diarrhea today. - Constitutional Vitals: Temp Pulse Resp BP Pulse Ox 97.8 F 71 18 88/59 98 01/28/18 11:49 01/28/18 11:49 01/28/18 11:49 01/28/18 11:49 01/28/18 11:49 General appearance: Present: cooperative, A&O X 3, pleasant, no acute distress, answers questions appropriately Exam: Patient in no acute distress Alert and oriented x 3 Mucous membranes moist Skin warm and dry heart regualr rate and rhythm, no murmur lungs clear to auscultation abdomen obese, soft, tender to lower midline lower extremities edematous, skin tight, no new erythema, non tender to palpation, not indicative of cellulitis Internal Medicine: Result - Labs CBC & Chem 7: 01/28/18 00:50 01/28/18 04:10 Labs: Short CBC 01/28/18 Range/Units 00:50 WBC 7.6 (4.3-11.1) K/mcL Hgb 13.0 (12.9-16.9) g/dL Hct 41.8 (37.5-50.1) % Plt Count 185 (140-400) K/mcL Neutrophils # 5.1 (1.6-8.9) K/mcL BMP 01/28/18 04:10 Sodium 133 L Potassium 4.5 Chloride 97 L Carbon Dioxide 33 H BUN 22 Creatinine 0.79 Glucose 138 H Calcium 8.7 - ABG Interpretation ABG results: PT/INR, D-dimer PT 16.1 Seconds (9.4-12.1) H 01/28/18 00:50 D-Dimer 1021 ng/mLFEU (0-500) H 01/24/18 19:36 Consult Discharge Plan - Plan [facility] [place] [facility] Provider[facility] - <Ag Fletcher - Last Filed: 01/28/18 18:44> Date of Encounter: 01/28/18 - Assessment and plan (1) COPD (chronic obstructive pulmonary disease) Current Visit: No Status: Chronic 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 - Other emphysema (2) Diabetes Current Visit: No Status: Chronic Qualifiers: Diabetes mellitus type: type 2 Diabetes mellitus terminal press operator insulin use: without longterm use Diabetes mellitus complication status: without complication Qualified Code(s): E11.9 - Type 2 diabetes mellitus without complications (3) HTN (hypertension) Current Visit: No Status: Chronic Qualifiers: Hypertension type: essential hypertension Qualified Code(s): I10 - Essential (primary) hypertension (4) DVT prophylaxis Current Visit: No Status: Acute (5) Obesity Current Visit: No Status: Chronic Qualifiers: Obesity classification: adult class 3 (BMI >= 40) Serious obesity comorbidity presence: without serious comorbidity Body mass index: BMI 40.0- 44.9 Qualified Code(s): E66.9 - Obesity, unspecified; Z68.41 - Body mass index (BMI) 40.0-44.9, adult (6) CAD (coronary artery disease) Current Visit: No Status: Chronic Qualifiers: Coronary Disease-Associated Artery/Lesion type: [place] artery [place] vs. transplanted heart: [place] heart Associated angina: without angina Qualified Code(s): I25.10 - Atherosclerotic heart disease of [place] coronary artery without angina pectoris (7) Pulmonary embolism Current Visit: Yes Status: Suspected Qualifiers: Pulmonary embolism type: other Chronicity: acute Acute cor pulmonale presence: without acute cor pulmonale Qualified Code(s): I26.99 - Other pulmonary embolism without acute cor pulmonale (8) Acute exacerbation of congestive heart failure Current Visit: Yes Status: Acute Qualifiers: Heart failure type: systolic Qualified Code(s): I50.23 - Acute on chronic systolic (congestive) heart failure (9) Intertriginous dermatitis associated with moisture Current Visit: Yes Status: Chronic - Time Spent With Patient Total time spent is greater than 50% in coordination of care (as documented) at patient's floor/unit and/or counseling patient: - Constitutional Vitals: Temp Pulse Resp BP Pulse Ox 98.5 F 76 18 104/67 98 01/28/18 15:49 01/28/18 15:49 01/28/18 15:49 01/28/18 15:49 01/28/18 15:49 Internal Medicine: Result - Labs CBC & Chem 7: 01/28/18 00:50 01/28/18 04:10 Labs: Short CBC 01/28/18 Range/Units 00:50 WBC 7.6 (4.3-11.1) K/mcL Hgb 13.0 (12.9-16.9) g/dL Hct 41.8 (37.5-50.1) % Plt Count 185 (140-400) K/mcL Neutrophils # 5.1 (1.6-8.9) K/mcL BMP 01/28/18 04:10 Sodium 133 L Potassium 4.5 Chloride 97 L Carbon Dioxide 33 H BUN 22 Creatinine 0.79 Glucose 138 H Calcium 8.7 - ABG Interpretation ABG results: PT/INR, D-dimer PT 16.1 Seconds (9.4-12.1) H 01/28/18 00:50 D-Dimer 1021 ng/mLFEU (0-500) H 01/24/18 19:36 - Attending Attestation I examined this patient and my medical decision-making was reviewed with the Resident Physician. I agree with the documented findings, disposition and treatment plan as described except to the extent set forth below. We had extensive discussion over past several days of the severity of heart failure and risks with non-compliance. Today patient was open to a Palliative consult to aid with establishing goals of care during this time of treatment.
[2018-01-28] MEDS: Heparin 25,000 UNIT/500 ML D5W 25,000 UNIT/500 ML BAG IVC SCH (14:03)
[2018-01-28] MEDS: Magnesium Oxide 400 MG TABLET PO SCH ×2 (14:03→21:53)
--- NOTE | 2018-01-28 16:59 | Palliative - Consult Note ---
Date of Encounter: 01/28/18 Time of Encounter: 17:00 - Assessment and Plan (1) Dyspnea Current Visit: Yes Status: Acute Assessment and plan: He continues on diuretic therapy per cardiology. as well as beta blockers/ oxygen support, received Zaroxolyn today. Cardiology notes reviewed. Evaluate again on Wednesday and continue goals of care discussion. Qualifiers: Dyspnea type: unspecified Qualified Code(s): R06.00 - Dyspnea, unspecified (2) Advance care planning Current Visit: Yes Status: Acute Assessment and plan: Discussed with pt at length. He lives with and 24 y/o grandson with bipolar disorder. Has oxygen at home through company in [place], but does not utilize any other DME's. [employer] provides services for him and his (she had CVA) and they receive 2 hours of care a week, and 6 hours on Wednesday. He understands that his heart is very weak, and that this is life limiting. He also enjoys eating and drinking what he wants and struggles with diet compliance. He states that he does not desire life prolonging interventions, and "when its my time to go, just let me go". He does not want cardiac resuscitation, and does not want to be placed on life support. Discussed that he is a candidate for hospice, if he desires comfort care only, and wants to be managed at home, rather than continuing to come back to hospital. He verbalized understanding, but wants to speak with his . He struggles some with comprehension of medical information. I spoke with his over the phone , she also struggles with medical information. She plans on contacting me Wednesday to hopefully meet. I did inform her of pt wishes to not have cardiac resuscitation and intubation, and she acknowledged understanding. Code status change to DNR/DNI at this time, but will require ongoing discussions. Palliative does not have coverage this weekend, is supposed to call me Wednesday am with meeting time. (3) COPD (chronic obstructive pulmonary disease) Current Visit: No Status: Chronic 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 - Other emphysema (4) Cardiomyopathy Current Visit: No Status: Chronic Qualifiers: Cardiomyopathy type: ischemic Qualified Code(s): I25.5 - Ischemic cardiomyopathy (5) CHF (congestive heart failure) Current Visit: No Status: Chronic Qualifiers: Qualified Code(s): I50.41 - Acute combined systolic (congestive) and diastolic (congestive) heart failure Palliative-CN HPI - Data of Consult Requesting Physician: Ethel Webb Primary Care Provider: Zackary Hale MD - Consult Narrative History of present illness: Mr. Emmanuel is a 62 year old male who presented to ED with increasing shortness of breath, increasing lower extremity edema, and abdominal distention. He has PMH pertinent for ischemic cardiomyopathy, LV thrombus, CAD s/p PCI, COPD, HTN, and DM type II. Cardiology has been consulted and their noted reviewed. Patient has been resistant to consider AICD. PE was suspected , however, he was unable to lie flat for imaging. Cardiology consulted today for CHF. Has been admitted for several days, felt to have a possible PE. Echocardiogram completed yesterday demonstrated LVEF 20-25% , Severe left ventricular diastolic dysfunction, Severe global left ventricular systolic dysfunction, mild pulmonary hypertension, and moderately dilated left atrium. Upon my visit, he is up in chair, watching television. Denies pain, but states distended abd is causing some discomfort, and appears short of breath with conversation. Appetite is good. States feels little better than on admission. CC: Ethel Webb Past Med Surg Social Fam HX - Past Medical History Medical history: cancer, COPD, coronary artery disease, diabetes, myocardial infarction, other Additional medical history: pancreatitis Psychiatric history: no psych history - Past Surgical History Surgical History: angioplasty/stent, cataract, herniorrhaphy, other Additional surgical history: x3 stents - Social History Smoking Status: Current every day smoker Smokeless Tobacco Status: No Alcohol use: none Drug use: none - Family History Father Adopted: No Living Status: Hx Family Cardiac Disorders: Yes Hx Family Respiratory Disorders: Yes Hx Family Cancer: Yes Hx Family GI Disorders: No Hx Family Endocrine Disorder: No Hx Family Neuromuscular Disorders: No Hx Family Neurologic Disorders: No Hx Family HEENT Disorders: No Hx Family Autoimmune Disorders: No Mother Adopted: No Family Member Ethnicity: Non- Living Status: Hx Family Cardiac Disorders: No Hx Family Respiratory Disorders: Yes Hx Family Cancer: Yes Hx Family GI Disorders: No Hx Family Endocrine Disorder: Yes Hx Family Neuromuscular Disorders: No Hx Family Neurologic Disorders: No Hx Family HEENT Disorders: No Hx Family Autoimmune Disorders: No Medications and Allergies Albuterol Sulfate [Albuterol Inhaler] 2 puff IH Q4HR PRN 05/17/15 [History] Ezetimibe [Zetia] 10 mg PO DAILY 05/17/15 [History] Metformin HCl [Glucophage] 1,000 mg PO BID 05/17/15 [History] Tiotropium [Spiriva] 18 mcg IH DAILY 05/17/15 [History] Clopidogrel [Plavix] 75 mg PO DAILY 10/27/17 [History] Furosemide [Lasix] 20 mg PO DAILY 10/27/17 [History] Lisinopril [Zestril] 2.5 mg PO DAILY 10/27/17 [History] Metoprolol Succinate [Toprol Xl] 25 mg PO DAILY 10/27/17 [History] Glimepiride [Amaryl] 2 mg PO 0800 15 Days #15 tablet 11/02/17 [Rx] Lipase/Protease/Amylase [Creon Dr 12,000 Units Capsule] 1 cap PO BID 11/10/17 [ History] Promethazine [Phenergan] 25 mg PO BID 11/10/17 [History] Morphine Immed Rel [Morphine Sulfate] 15 mg PO Q4HR PRN 3 Days #10 tab 11/13/17 [Rx] Cholestyramine [Cholestyramine] 4 g PO BID 01/24/18 [History] Perphenazine [Trilafon] 8 mg PO DAILY 01/24/18 [History] Warfarin Sodium [Warfarin Sodium] 9 mg PO DAILY 01/24/18 [History] 3 Allergy/AdvReac Type Severity Reaction Status Date / Time loxapine [From Loxitane] Allergy See Verified 01/24/18 19:21 Comments betamethasone AdvReac Hives Verified 01/24/18 19:21 [From Lotrisone] clotrimazole [From Lotrisone] AdvReac Hives Verified 01/24/18 19:21 Sulfa (Sulfonamide AdvReac Hives Verified 01/24/18 19:21 Antibiotics) All systems: reviewed and no additional remarkable complaints except as stated ( shortness of breath, edematous legs, abd swelling, weakness) Palliative Care-Exam - Constitutional Vitals: Temp Pulse Resp BP Pulse Ox 98.5 F 76 18 104/67 98 01/28/18 15:49 01/28/18 15:49 01/28/18 15:49 01/28/18 15:49 01/28/18 15:49 General appearance: Present: morbidly obese - Head Head Exam: Present: normal inspection, normocephalic - Eye Eye exam: Present: normal appearance, PERRL - Respiratory Respiratory exam: Present: decreased breath sounds, CTAB - Cardiovascular Cardiovascular exam: Present: +S1, +S2 - GI/Abdominal Exam GI/Abdominal exam: Present: distended, normal bowel sounds, soft - Extremities Exam Additional comments: 3+ edema to bilateral lower extremities - Neurological Exam Neurological exam: Present: alert, oriented X3, strengths equal and symetr throughout - Skin Skin exam: Present: dry, pallor, warm Internal Medicine - CN: Reslt - Labs CBC & Chem 7: 01/28/18 00:50 01/28/18 04:10 Labs: Short CBC 01/28/18 Range/Units 00:50 WBC 7.6 (4.3-11.1) K/mcL Hgb 13.0 (12.9-16.9) g/dL Hct 41.8 (37.5-50.1) % Plt Count 185 (140-400) K/mcL Neutrophils # 5.1 (1.6-8.9) K/mcL BMP 01/28/18 04:10 Sodium 133 L Potassium 4.5 Chloride 97 L Carbon Dioxide 33 H BUN 22 Creatinine 0.79 Glucose 138 H Calcium 8.7 - ABG Interpretation ABG results: PT/INR, D-dimer PT 16.1 Seconds (9.4-12.1) H 01/28/18 00:50 D-Dimer 1021 ng/mLFEU (0-500) H 01/24/18 19:36 Consult Discharge Plan - Plan Referrals: [facility] [place],Zackary Barth MD [Primary Care Provider] - Palliative Quality Palliative Quality: Screen for Code Status: Yes, Screen for Goals of Care: Yes, Screen for Pain: Yes, If Pain Regimen Started, Initiate Bowel Regimen: NA, Screen for Nausea/Vomitting: Yes
[2018-01-28] MEDS ORDERED: *HR* Warfarin 10 MG TABLET PO ONE (18:00)
[2018-01-29 01:07] LABS: INR 1.8; Prothrombin Time 20.4 Seconds (9.4-12.1)
[2018-01-29] MEDS ORDERED: Regadenoson 0.4 MG/5 ML SYRINGE IVP ONE (07:35)
[2018-01-29] MEDS: Tiotropium 18 MCG inhalation IH SCH (07:50)
[2018-01-29] MEDS: Perphenazine 8 MG TABLET PO SCH (08:30)
[2018-01-29] MEDS: Cholestyramine 4 GM POWD.PACK PO SCH ×2 (08:30→17:49)
[2018-01-29] MEDS: Insulin LISPRO 300 UNITS/3 ML VIAL SQ SCH ×3 (08:30→17:50)
[2018-01-29] MEDS: Furosemide 40 MG/4 ML VIAL IVP SCH ×2 (08:30→17:49)
[2018-01-29] MEDS: Nystatin POWDER 30 GM BOTTLE TP SCH ×2 (08:31→20:22)
[2018-01-29 08:34] LABS: Basophils % 0.5 %; Eosinophils # 0.4 K/mcL (0.0-0.6); Eosinophils % 4.7 %; Hematocrit 40.5 % (37.5-50.1); Hemoglobin 12.7 g/dL (12.9-16.9); Immature Granulocytes % 0.3 % (0-4); Lymphocytes % 12.4 %; Mean Corpuscular HGB Conc 31.4 g/dL (31.6-35.5); Mean Corpuscular Hemoglobin 30.2 pg (28.0-33.3); Mean Corpuscular Volume 96.4 fL (83.0-100.0); Mean Platelet Volume 10.5 fL (9.4-12.4); Neutrophils # 5.3 K/mcL (1.6-8.9); Platelet Count 181 K/mcL (140-400); Red Cell Distribution Width 14.7 % (11.5-14.5); Segmented Neutrophils % 69.1 %
[2018-01-29 08:38] LABS: BUN/Creatinine Ratio 25 (6-26); Blood Urea Nitrogen 23 mg/dL (8-23); Calcium 9.1 mg/dL (8.6-10.3); Carbon Dioxide 31 mEq/L (23-29); Chloride 94 mEq/L (98-107); Glucose 185 mg/dL (70-105); Osmolality,Calculated 282 (280-300); Potassium 4.5 mEq/L (3.5-5.1); Sodium 132 mEq/L (136-145); eGFR For African Americans > 60 (> 60); eGFR For Non-African Americans > 60 (> 60)
[2018-01-29] MEDS: Heparin 25,000 UNIT/500 ML D5W 25,000 UNIT/500 ML BAG IVC SCH (08:38)
[2018-01-29] MEDS: Metoprolol XL (24 HR) Succ 25 MG TAB.ER.24H PO SCH (11:38)
--- NOTE | 2018-01-29 12:45 | Cardiology Progress Note ---
Date of Encounter: 01/29/18 Time of Encounter: 08:45 Assessment and Plan (1) Systolic heart failure Current Visit: Yes Status: Acute Per caridology: -Acute on chronic CHF; reports NYHA class III-IV symptoms. Suspect possible fluid/dietary non-compliance. -Hx of ICMP. LHC at [facility] 03/2017--s/p high risk PCI to prox and mid LAD and PTCA of diag. -Repeat TTE this admission shows LVEF, 20-20%. -Net positive 2500ml since admission. -Still with significant volume overload on exam. reports nearly 40 lb weight gain over the past 2 months. Patient reports abdominal distention has worsened since admission. -Continue betablocker, will hold MARILYNN-i given marginal BP as we are diuresing. -Discussed and reviewed with , will increase IV lasix and will start metalazone daily. -Strict I&Os, daily weights (Standing), and Na/fluid restriction diet. Wrap LE with marilynn bandages. -Will continue to follow. Qualifiers: Heart failure chronicity: acute on chronic Qualified Code(s): I50.23 - Acute on chronic systolic (congestive) heart failure (2) Ischemic cardiomyopathy Current Visit: Yes Status: Acute Per cardiology: -As above. -Hx of NSTEMI 03/2017--transfer to [facility] for CABG vs. high risk PCI given CMP. -s/p high-risk PCI to LAD, PTCA diagonal. -Continue plavix, BB, statin. -OF note, had been recommended for ICD in outpateint setting, patient refused. Discussed at length with patient who is now agreeable for re-evaluation for ICD, -PLan for EP consult Wednesday. (3) CAD (coronary artery disease) Current Visit: No Status: Chronic Per cardiology: -As above. No chest pain reported. -Stress with Medium sized, moderate-severe intensity partially fixed perfusion defect involving the mid to distal anterior wall, apex and apical inferior wall. There is worsening of perfusion in this area during stress. Findings likely represent infarct with dalton-infarct ischemia. Perfusion defect involving the inferolateral wall representing infarct. -Discussed with , stress results correlate to last [facility]. -Continue current regimen. Qualifiers: Coronary Disease-Associated Artery/Lesion type: [place] artery [place] vs. transplanted heart: [place] heart Associated angina: angina presence unspecified Qualified Code(s): I25.10 - Atherosclerotic heart disease of [place] coronary artery without angina pectoris (4) Non-sustained ventricular tachycardia Current Visit: Yes Status: Acute Per cardiology: -Had episode of long non-sustained VT on Wednesday. -On BB, unable to titrate further due to hypotension. -Keep K >4, Mg > 2. -No significant non-sustained runs of VT overnight. -PLan for EP evaluation Wednesday for possible ICD. -Continue close telemetry monitoring. (5) LV (left ventricular) mural thrombus Current Visit: Yes Status: Acute Per cardiology: -On Coumadin, INR followed by PCP. -Continue heparin gtt for goal INR 2-3. Discussion w patient/family: The assessment and plan as outlined above was discussed with the patient who expressed understanding and agreement. All questions were answered. Thank you for involving us in the care of your patient. Please call with any questions. Discussed and reviewed with . Subjective Principal diagnosis: ICMP Interval history: Patient states still short of breath. Reports edema is about the same. Denies chest pain. Denies palpitations or fluttering. Objective Vital Signs Temperature 97.4 F L 01/24/18 19:26 Pulse Rate 101 01/24/18 19:26 Respiratory Rate 20 01/24/18 19:26 Blood Pressure 134/84 01/24/18 19:26 O2 Sat by Pulse Oximetry 95 01/24/18 19:26 Temperature 98.8 F 01/29/18 07:07 Pulse Rate 66 01/29/18 07:07 Respiratory Rate 20 01/29/18 07:50 Blood Pressure 97/64 01/29/18 07:07 O2 Sat by Pulse Oximetry 99 01/29/18 07:50 Oxygen Delivery Oxygen Delivery Nasal Cannula General: Conversant, No Apparent Distress HEENT: Atraumatic, Normocephaly, Mucus Membranes Moist Neck: No JVD, Normal carotid pulses Cardiac: Reg Rate and Rhythm, Normal S1 and S2, No Murmur Lungs: Normal Breath Sounds, No Wheeze, Rales, Rhonchi Neuro: Alert and responsive, No focal deficits noted Abdomen: Soft, Non-Tender Skin: No rashes noted on visualized skin Musculoskeletal: No Chest Wall Tenderness Extremities: No Clubbing, No Cyanosis, Normal Pulses, Other (3+ bilateral pitting edema noted to bilateral lower extremities. Noted up to thighs. ) Results 01/29/18 00:39 01/29/18 00:39 Lab Results Active Medications Albuterol Sulfate (Albuterol Inhaler) 2 puff IH Q4HR PRN PRN Reason: Shortness Of Breath Stop: 07/27/18 00:32 Lipase/Protease/Amylase (Creon Dr 6,000 Units Capsule) 2 each PO BID [facility] Stop: 07/27/18 09:01 Last Admin: 01/29/18 08:29 Dose: 2 each Cholestyramine Resin (Cholestyramine) 4 gm PO BIDAC [facility] Stop: 07/27/18 07:31 Last Admin: 01/29/18 08:30 Dose: 4 gm Clopidogrel Bisulfate (Plavix) 75 mg PO DAILY [facility] Stop: 07/27/18 09:01 Last Admin: 01/29/18 08:30 Dose: 75 mg Dextrose/Water (Dextrose 50% (Syg)) 25 ml IVP AD PRN PRN Reason: Hypoglycemia Stop: 07/27/18 11:19 Furosemide (Lasix) 60 mg IVP BID [facility] Stop: 07/31/18 21:01 Glucagon (Glucagen) 1 mg IM ONCE PRN PRN Reason: Hypoglycemia Stop: 07/27/18 11:19 Glucose (Gluctose) 15 gm PO ONCE PRN PRN Reason: Hypoglycemia Stop: 07/27/18 11:19 Glucose (Gluctose) 30 gm PO ONCE PRN PRN Reason: Hypoglycemia Stop: 07/27/18 11:19 Heparin Sodium (Porcine) (Heparin) 8,800 unit 70 unit/kg (8800 unit) IVP Q6HR PRN PRN Reason: SEE COMMENTS Stop: 07/26/18 23:29 Heparin Sodium (Porcine) (Heparin) 4,400 unit 35 unit/kg (4400 unit) IVP Q6H PRN PRN Reason: SEE COMMENTS Stop: 07/26/18 23:29 Last Admin: 01/27/18 12:23 Dose: 4,400 unit Heparin Sodium/Dextrose (Heparin 25,000 Unit/500 Ml D5w) 25,000 unit in 500 mls @ 35.053 mls/hr IVC .[id number] [facility]MAINE; 14 UNIT/KG/HR PRN Reason: Protocol Stop: 07/26/18 23:31 Last Admin: 07/07/18 08:38 Dose: 9.94 unit/kg/hr, 24.9 mls/hr Dextrose (Dextrose 5%) 1,000 mls @ 100 mls/hr IVC .Q10H PRN PRN Reason: HYPOGLYCEMIA Stop: 07/27/18 11:19 Insulin Human Lispro (Humalog) 0 units SQ HS [facility] PRN Reason: Protocol Stop: 07/27/18 21:01 Last Admin: 01/28/18 21:54 Dose: Not Given Insulin Human Lispro (Humalog) 0 units SQ TIDAC [facility] PRN Reason: Protocol Stop: 07/27/18 11:31 Last Admin: 01/29/18 12:25 Dose: Not Given Metolazone (Zaroxolyn) 5 mg PO DAILY [facility] Stop: 07/31/18 12:46 Metoprolol Succinate (Toprol Xl) 25 mg PO DAILY [facility] Stop: 07/27/18 09:01 Last Admin: 01/29/18 11:38 Dose: 25 mg Morphine Sulfate (Morphine Sulfate) 15 mg PO Q4HR PRN PRN Reason: Pain Stop: 07/27/18 00:32 Nystatin (Nystop) 1 appl TP BID [facility] Stop: 07/29/18 13:31 Last Admin: 01/29/18 08:31 Dose: 1 appl Perphenazine (Trilafon) 8 mg PO DAILY [facility] Stop: 07/27/18 09:01 Last Admin: 01/29/18 08:30 Dose: 8 mg Pharmacy Profile Note (Patient Taking Own Medication) 1 each PO DAILY [facility] Stop: 07/27/18 09:01 Last Admin: 01/29/18 08:14 Dose: Not Given Promethazine HCl (Phenergan) 25 mg PO BID [facility] Stop: 07/27/18 09:01 Last Admin: 01/29/18 08:30 Dose: 25 mg Tiotropium [place] (Spiriva) 18 mcg IH DAILYR [facility] Stop: 07/27/18 10:01 Last Admin: 01/29/18 07:50 Dose: 18 mcg Warfarin Sodium (Coumadin Perpt) 1 each PO DAILY@1800 PRN PRN Reason: SEE COMMENTS Stop: 07/28/18 18:01 Laboratory Tests 01/29/18 01/29/18 01/29/18 00:39 00:39 00:39 Hgb 12.7 L INR 1.8 Potassium 4.5 Creatinine 0.91 - Imaging and Cardiology Chest Xray: report reviewed Stress Test: report reviewed Echo: report reviewed - EKG Interpretation EKG results cardiology: other (Telemetry reviewed with averager HR previous 12 hours noted to be 80, SR. PVCs, couplets noted. PAC noted.) - VTE Documentation of Mechanical Device: Graduated compression elastic hosiery Consult Discharge Plan - Plan Referrals: Alexia,Zackary Barth MD [Primary Care Provider] -
[2018-01-29] MEDS: metOLazone 5 MG TABLET PO SCH (13:36)
--- NOTE | 2018-01-29 16:08 | Internal Med Progress Note ---
Date of Encounter: 01/29/18 Time of Encounter: 16:08 - Assessment and plan (1) Acute exacerbation of congestive heart failure Current Visit: Yes Status: Acute Assessment and plan: The plan is to continue to diurese this patient with iv Lasix 40mg BID to relieve his fluid overload. He has made significant progress but will likely need several more days of diuresis. Cardiology has been involved as well as palliative care, to determine with the patient his care goals. His lisinopril is being held because of issues with hypotension during his diuresis. We are getting daily labs to monitor his electrolytes and kidney function. Continue diuresis with IV Lasix, and metolazone will be added as well BIPAP prn dyspnea fluid restriction Qualifiers: Heart failure type: systolic Qualified Code(s): I50.23 - Acute on chronic systolic (congestive) heart failure (2) COPD (chronic obstructive pulmonary disease) Current Visit: No Status: Chronic Assessment and plan: Chronic and controlled on home meds. The patient has been well maintained on 2L nasal cannula during admission without issues. 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 - Other emphysema (3) Diabetes Current Visit: No Status: Chronic Assessment and plan: Continue ISS and cardiac/diabetic diet Qualifiers: Diabetes mellitus type: type 2 Diabetes mellitus shelter insulin use: without grounds manager use Diabetes mellitus complication status: without complication Qualified Code(s): E11.9 - Type 2 diabetes mellitus without complications (4) HTN (hypertension) Current Visit: No Status: Chronic Assessment and plan: Chronic and controlled on home meds, lisinopril is being held here due to hypotension Qualifiers: Hypertension type: essential hypertension Qualified Code(s): I10 - Essential (primary) hypertension (5) DVT prophylaxis Current Visit: No Status: Acute Assessment and plan: Patient anticoagulated on heparin, bridging to warfarin (6) Obesity Current Visit: No Status: Chronic Assessment and plan: Chronic, patient has difficulty with diet education Qualifiers: Obesity type: due to excess calories Obesity classification: adult class 3 (BMI >= 40) Serious obesity comorbidity presence: without serious comorbidity Body mass index: BMI 40.0-44.9 Qualified Code(s): E66.01 - Morbid (severe) obesity due to excess calories; Z68.41 - Body mass index (BMI) 40.0-44.9, adult (7) CAD (coronary artery disease) Current Visit: No Status: Chronic Assessment and plan: chronic and controlled on home medications Qualifiers: Coronary Disease-Associated Artery/Lesion type: [place] artery [place] vs. transplanted heart: [place] heart Associated angina: angina presence unspecified Qualified Code(s): I25.10 - Atherosclerotic heart disease of [place] coronary artery without angina pectoris (8) Intertriginous dermatitis associated with moisture Current Visit: Yes Status: Chronic - Time Spent With Patient Total time spent is greater than 50% in coordination of care (as documented) at patient's floor/unit and/or counseling patient: - Subjective Interval history: Patient has no acute events overnight, no acute SOB or chest pain. - Constitutional Vitals: Temp Pulse Resp BP Pulse Ox 98.8 F 66 20 97/64 99 01/29/18 07:07 01/29/18 07:07 01/29/18 07:50 01/29/18 07:07 01/29/18 07:50 General appearance: Present: cooperative, A&O X 3, morbidly obese, pleasant, no acute distress, answers questions appropriately - Head Head exam: Present: atraumatic, normocephalic - Eye Eye exam: Present: PERRL, conjuntiva pink, sclera anicteric Pupils: Present: PERRL - Neck Neck exam general surgery: Present: supple, trachea midline. Absent: lymphadenopathy - Respiratory Respiratory exam: Present: decreased breath sounds, rales. Absent: accessory muscle use, rhonchi, wheezes - Cardiovascular Cardiovascular exam: Present: RRR, +S1, +S2. Absent: diastolic murmur, gallop, rubs, systolic murmur - GI/Abdominal GI/Abdominal exam: Present: normal bowel sounds, soft, no peritoneal signs. Absent: distended, tenderness - Extremities Exam Extremities exam: Present: pedal edema, warm, radial pulses palpable and symmetrical. Absent: calf tenderness, cyanotic - Neurological Exam Neurological exam: Present: CN II-XII intact, oriented X3, no focal deficits. Absent: pronater drift, facial droop, speech deficit - Skin Skin exam: Present: dry, intact Internal Medicine: Result - Labs CBC & Chem 7: 01/29/18 00:39 01/29/18 00:39 Labs: Short CBC 01/29/18 Range/Units 00:39 WBC 7.7 (4.3-11.1) K/mcL Hgb 12.7 L (12.9-16.9) g/dL Hct 40.5 (37.5-50.1) % Plt Count 181 (140-400) K/mcL Neutrophils # 5.3 (1.6-8.9) K/mcL BMP 01/29/18 00:39 Sodium 132 L Potassium 4.5 Chloride 94 L Carbon Dioxide 31 H BUN 23 Creatinine 0.91 Glucose 185 H Calcium 9.1 - ABG Interpretation ABG results: PT/INR, D-dimer PT 20.4 Seconds (9.4-12.1) H 01/29/18 00:39 D-Dimer 1021 ng/mLFEU (0-500) H 01/24/18 19:36 - VTE Documentation of Mechanical Device: Graduated compression elastic hosiery Consult Discharge Plan - Plan Referrals: Zackary Hale MD [Primary Care Provider] -
[2018-01-29] MEDS ORDERED: *HR* Warfarin 4 MG TABLET PO ONE (18:00)
[2018-01-30] MEDS: Insulin LISPRO 300 UNITS/3 ML VIAL SQ SCH ×5 (00:14→22:16)
[2018-01-30 01:33] LABS: Basophils % 0.6 %; Eosinophils # 0.4 K/mcL (0.0-0.6); Eosinophils % 6.2 %; Hemoglobin 12.6 g/dL (12.9-16.9); Immature Granulocytes % 0.1 % (0-4); Lymphocytes # 1.1 K/mcL (0.6-4.6); Mean Corpuscular HGB Conc 31.5 g/dL (31.6-35.5); Mean Corpuscular Hemoglobin 29.9 pg (28.0-33.3); Mean Corpuscular Volume 94.8 fL (83.0-100.0); Mean Platelet Volume 10.1 fL (9.4-12.4); Monocytes # 0.9 K/mcL (0.0-1.3); Monocytes % 13.3 %; Neutrophils # 4.6 K/mcL (1.6-8.9); Platelet Count 157 K/mcL (140-400); Red Blood Count 4.22 M/mcL (4.19-5.50); Red Cell Distribution Width 14.4 % (11.5-14.5); Segmented Neutrophils % 64.8 %
[2018-01-30 01:40] LABS: INR 2.4; Prothrombin Time 26.7 Seconds (9.4-12.1)
[2018-01-30 01:50] LABS: BUN/Creatinine Ratio 28 (6-26); Blood Urea Nitrogen 22 mg/dL (8-23); Calcium 9.1 mg/dL (8.6-10.3); Carbon Dioxide 40 mEq/L (23-29); Chloride 89 mEq/L (98-107); Glucose 171 mg/dL (70-105); Osmolality,Calculated 283 (280-300); Potassium 4.3 mEq/L (3.5-5.1); Sodium 133 mEq/L (136-145); eGFR For African Americans > 60 (> 60); eGFR For Non-African Americans > 60 (> 60)
[2018-01-30] MEDS: Heparin 25,000 UNIT/500 ML D5W 25,000 UNIT/500 ML BAG IVC SCH (05:15)
[2018-01-30] MEDS: Tiotropium 18 MCG inhalation IH SCH (08:06)
[2018-01-30] MEDS: Furosemide 40 MG/4 ML VIAL IVP SCH ×2 (08:41→22:17)
[2018-01-30] MEDS: Perphenazine 8 MG TABLET PO SCH (08:41)
[2018-01-30] MEDS: Cholestyramine 4 GM POWD.PACK PO SCH ×2 (08:41→17:27)
[2018-01-30] MEDS: Metoprolol XL (24 HR) Succ 25 MG TAB.ER.24H PO SCH (08:41)
[2018-01-30] MEDS: metOLazone 5 MG TABLET PO SCH (08:41)
[2018-01-30] MEDS: Nystatin POWDER 30 GM BOTTLE TP SCH ×2 (08:42→22:17)
--- NOTE | 2018-01-30 12:14 | Internal Med Progress Note ---
Date of Encounter: 01/30/18 Time of Encounter: 12:14 - Assessment and plan (1) Acute exacerbation of congestive heart failure Current Visit: Yes Status: Acute Qualifiers: Heart failure type: systolic Qualified Code(s): I50.23 - Acute on chronic systolic (congestive) heart failure (2) COPD (chronic obstructive pulmonary disease) Current Visit: No Status: Chronic 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 - Other emphysema (3) Diabetes Current Visit: No Status: Chronic Qualifiers: Diabetes mellitus type: type 2 Diabetes mellitus shelter insulin use: without generating plant superintendent use Diabetes mellitus complication status: without complication Qualified Code(s): E11.9 - Type 2 diabetes mellitus without complications (4) HTN (hypertension) Current Visit: No Status: Chronic Qualifiers: Hypertension type: essential hypertension Qualified Code(s): I10 - Essential (primary) hypertension (5) DVT prophylaxis Current Visit: No Status: Acute (6) Obesity Current Visit: No Status: Chronic Qualifiers: Obesity type: due to excess calories Obesity classification: adult class 3 (BMI >= 40) Serious obesity comorbidity presence: without serious comorbidity Body mass index: BMI 40.0-44.9 Qualified Code(s): E66.01 - Morbid (severe) obesity due to excess calories; Z68.41 - Body mass index (BMI) 40.0-44.9, adult (7) CAD (coronary artery disease) Current Visit: No Status: Chronic Qualifiers: Coronary Disease-Associated Artery/Lesion type: [place] artery [place] vs. transplanted heart: [place] heart Associated angina: angina presence unspecified Qualified Code(s): I25.10 - Atherosclerotic heart disease of [place] coronary artery without angina pectoris (8) Intertriginous dermatitis associated with moisture Current Visit: Yes Status: Chronic - Time Spent With Patient Total time spent is greater than 50% in coordination of care (as documented) at patient's floor/unit and/or counseling patient: - Subjective Interval history: Patient has no acute events overnight, no acute SOB or chest pain. - Constitutional Vitals: Temp Pulse Resp BP Pulse Ox 98.1 F 85 18 103/64 98 01/30/18 03:15 01/30/18 07:07 01/30/18 08:06 01/30/18 07:07 01/30/18 08:06 General appearance: Present: cooperative, A&O X 3, morbidly obese, pleasant, no acute distress, answers questions appropriately Internal Medicine: Result - Labs CBC & Chem 7: 01/30/18 01:03 01/30/18 01:03 Labs: Short CBC 01/30/18 Range/Units 01:03 WBC 7.1 (4.3-11.1) K/mcL Hgb 12.6 L (12.9-16.9) g/dL Hct 40.0 (37.5-50.1) % Plt Count 157 (140-400) K/mcL Neutrophils # 4.6 (1.6-8.9) K/mcL BMP 01/30/18 01:03 Sodium 133 L Potassium 4.3 Chloride 89 L Carbon Dioxide 40 H* BUN 22 Creatinine 0.80 Glucose 171 H Calcium 9.1 - ABG Interpretation ABG results: PT/INR, D-dimer PT 26.7 Seconds (9.4-12.1) H 01/30/18 01:03 D-Dimer 1021 ng/mLFEU (0-500) H 01/24/18 19:36 - VTE Documentation of Mechanical Device: Graduated compression elastic hosiery Consult Discharge Plan - Plan Referrals: Zackary Hale MD [Primary Care Provider] -
--- NOTE | 2018-01-30 13:41 | Cardiology Progress Note ---
Date of Encounter: 01/30/18 Time of Encounter: 10:00 Assessment and Plan (1) Systolic heart failure Current Visit: Yes Status: Acute Per caridology: -Acute on chronic CHF; reports NYHA class III-IV symptoms. Suspect possible fluid/dietary non-compliance. -Hx of ICMP. LHC at [facility] 03/2017--s/p high risk PCI to prox and mid LAD and PTCA of diag. -Repeat TTE this admission shows LVEF, 20-20%. -Net positive 215ml since admission, much improved from yesterday. -Still with significant volume overload on exam. reports nearly 40 lb weight gain over the past 2 months. -Continue betablocker, will hold MARILYNN-i given marginal BP as we are diuresing. -ON IV lasix 60mg BID and metalazone 5mg daily. -Discussed and reviewed with , will increase IV lasix. -Strict I&Os, daily weights (Standing), and Na/fluid restriction diet. Wrap LE with marilynn bandages. -Will continue to follow. Qualifiers: Heart failure chronicity: acute on chronic Qualified Code(s): I50.23 - Acute on chronic systolic (congestive) heart failure (2) Ischemic cardiomyopathy Current Visit: Yes Status: Acute Per cardiology: -As above. -Hx of NSTEMI 03/2017--transfer to [facility] for CABG vs. high risk PCI given CMP. -s/p high-risk PCI to LAD, PTCA diagonal. -Continue plavix, BB, statin. -OF note, had been recommended for ICD in outpateint setting, patient refused. Discussed at length with patient who is now agreeable for re-evaluation for ICD, -PLan for EP consult Wednesday. (3) CAD (coronary artery disease) Current Visit: No Status: Chronic Per cardiology: -As above. No chest pain reported. -Stress with Medium sized, moderate-severe intensity partially fixed perfusion defect involving the mid to distal anterior wall, apex and apical inferior wall. There is worsening of perfusion in this area during stress. Findings likely represent infarct with dal[place]-infarct ischemia. Perfusion defect involving the inferolateral wall representing infarct. -Discussed with , stress results correlate to last [facility]. -Continue current regimen. Qualifiers: Coronary Disease-Associated Artery/Lesion type: [place] artery [place] vs. transplanted heart: [place] heart Associated angina: angina presence unspecified Qualified Code(s): I25.10 - Atherosclerotic heart disease of [place] coronary artery without angina pectoris (4) Non-sustained ventricular tachycardia Current Visit: Yes Status: Acute Per cardiology: -Had episode of long non-sustained VT on Wednesday. -On BB, unable to titrate further due to hypotension. -Keep K >4, Mg > 2. -No significant non-sustained runs of VT overnight. -PLan for EP evaluation Wednesday for possible ICD. -Continue close telemetry monitoring. (5) LV (left ventricular) mural thrombus Current Visit: Yes Status: Acute Per cardiology: -On Coumadin, INR followed by PCP. -INR therpeutic today. Discussion w patient/family: The assessment and plan as outlined above was discussed with the patient who expressed understanding and agreement. All questions were answered. Thank you for involving us in the care of your patient. Please call with any questions. Discussed and reviewed with . Subjective Principal diagnosis: ICMP Interval history: Patient states he feels mildly better than yesterday. States he was able to lay in bed some last night. Objective Vital Signs Temperature 97.4 F L 01/24/18 19:26 Pulse Rate 101 01/24/18 19:26 Respiratory Rate 20 01/24/18 19:26 Blood Pressure 134/84 01/24/18 19:26 O2 Sat by Pulse Oximetry 95 01/24/18 19:26 Temperature 98.1 F 01/30/18 03:15 Pulse Rate 85 01/30/18 07:07 Respiratory Rate 18 01/30/18 08:06 Blood Pressure 103/64 01/30/18 07:07 O2 Sat by Pulse Oximetry 98 01/30/18 08:06 Oxygen Delivery Oxygen Delivery Nasal Cannula General: Conversant, No Apparent Distress HEENT: Atraumatic, Normocephaly, Mucus Membranes Moist Neck: No JVD, Normal carotid pulses Cardiac: Reg Rate and Rhythm, Normal S1 and S2, No Murmur Lungs: Normal Breath Sounds, No Wheeze, Rales, Rhonchi Neuro: Alert and responsive, No focal deficits noted Abdomen: Soft, Non-Tender Skin: No rashes noted on visualized skin Musculoskeletal: No Chest Wall Tenderness Extremities: No Clubbing, No Cyanosis, Normal Pulses, Other (3+ bilateral lower extremity pitting edema noted. ) Results 01/30/18 01:03 07/08/18 01:03 Lab Results Active Medications Albuterol Sulfate (Albuterol Inhaler) 2 puff IH Q4HR PRN PRN Reason: Shortness Of Breath Stop: 07/27/18 00:32 Lipase/Protease/Amylase (Creon Dr 6,000 Units Capsule) 2 each PO BID [facility] Stop: 07/27/18 09:01 Last Admin: 01/30/18 08:41 Dose: 2 each Cholestyramine Resin (Cholestyramine) 4 gm PO BIDAC [facility] Stop: 07/27/18 07:31 Last Admin: 01/30/18 08:41 Dose: 4 gm Clopidogrel Bisulfate (Plavix) 75 mg PO DAILY [facility] Stop: 07/27/18 09:01 Last Admin: 01/30/18 08:41 Dose: 75 mg Dextrose/Water (Dextrose 50% (Syg)) 25 ml IVP AD PRN PRN Reason: Hypoglycemia Stop: 07/27/18 11:19 Furosemide (Lasix) 80 mg IVP BID [facility] Stop: 08/01/18 21:01 Glucagon (Glucagen) 1 mg IM ONCE PRN PRN Reason: Hypoglycemia Stop: 07/27/18 11:19 Glucose (Gluctose) 15 gm PO ONCE PRN PRN Reason: Hypoglycemia Stop: 07/27/18 11:19 Glucose (Gluctose) 30 gm PO ONCE PRN PRN Reason: Hypoglycemia Stop: 07/27/18 11:19 Heparin Sodium (Porcine) (Heparin) 8,800 unit 70 unit/kg (8800 unit) IVP Q6HR PRN PRN Reason: SEE COMMENTS Stop: 07/26/18 23:29 Dextrose (Dextrose 5%) 1,000 mls @ 100 mls/hr IVC .Q10H PRN PRN Reason: HYPOGLYCEMIA Stop: 07/27/18 11:19 Insulin Human Lispro (Humalog) 0 units SQ HS [facility] PRN Reason: Protocol Stop: 07/27/18 21:01 Last Admin: 01/30/18 00:14 Dose: Not Given Insulin Human Lispro (Humalog) 0 units SQ TIDAC [facility] PRN Reason: Protocol Stop: 07/27/18 11:31 Last Admin: 01/30/18 11:53 Dose: 4 units Metolazone (Zaroxolyn) 5 mg PO DAILY [facility] Stop: 07/31/18 12:46 Last Admin: 01/30/18 08:41 Dose: 5 mg Metoprolol Succinate (Toprol Xl) 25 mg PO DAILY [facility] Stop: 07/27/18 09:01 Last Admin: 01/30/18 08:41 Dose: 25 mg Morphine Sulfate (Morphine Sulfate) 15 mg PO Q4HR PRN PRN Reason: Pain Stop: 07/27/18 00:32 Nystatin (Nystop) 1 appl TP BID [facility] Stop: 07/29/18 13:31 Last Admin: 01/30/18 08:42 Dose: 1 appl Perphenazine (Trilafon) 8 mg PO DAILY [facility] Stop: 07/27/18 09:01 Last Admin: 01/30/18 08:41 Dose: 8 mg Pharmacy Profile Note (Patient Taking Own Medication) 1 each PO DAILY [facility] Stop: 07/27/18 09:01 Last Admin: 01/30/18 08:44 Dose: Not Given Promethazine HCl (Phenergan) 25 mg PO BID [facility] Stop: 07/27/18 09:01 Last Admin: 01/30/18 08:41 Dose: 25 mg Tiotropium [place] (Spiriva) 18 mcg IH DAILYR [facility] Stop: 07/27/18 10:01 Last Admin: 01/30/18 08:06 Dose: 18 mcg Warfarin Sodium (Coumadin Perpt) 1 each PO DAILY@1800 PRN PRN Reason: SEE COMMENTS Stop: 07/28/18 18:01 Laboratory Tests 01/30/18 01/30/18 01/30/18 01:03 01:03 01:03 Hgb 12.6 L INR 2.4 Creatinine 0.80 - Imaging and Cardiology Chest Xray: report reviewed Stress Test: report reviewed Echo: report reviewed - EKG Interpretation EKG results cardiology: other (Telemetry reviewed with average HR previous 12 hours noted to be 84, SR. PVCs, couplets, and PACs noted.) - VTE Documentation of Mechanical Device: Graduated compression elastic hosiery Consult Discharge Plan - Plan Referrals: Ucci,Zackary Barth MD [Primary Care Provider] -
--- NOTE | 2018-01-30 15:20 | Internal Med Progress Note ---
<Santi Alexander - Last Filed: 01/30/18 15:17> Date of Encounter: 01/30/18 Time of Encounter: 15:17 - Assessment and plan (1) Acute exacerbation of congestive heart failure Current Visit: Yes Status: Acute Assessment and plan: Patient is making progress with diuresis, will continue with lasix and metolazone Will increase lasix per cardiology recommendation BIPAP prn dyspnea fluid restriction Qualifiers: Heart failure type: systolic Qualified Code(s): I50.23 - Acute on chronic systolic (congestive) heart failure (2) COPD (chronic obstructive pulmonary disease) Current Visit: No Status: Chronic Assessment and plan: Chronic and controlled on home meds. The patient has been well maintained on 2L nasal cannula during admission without issues. 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: without detention use Diabetes mellitus complication status: without complication Qualified Code(s): E11.9 - Type 2 diabetes mellitus without complications (4) HTN (hypertension) Current Visit: No Status: Chronic Assessment and plan: Chronic and controlled on home meds, lisinopril is being held here due to hypotension Qualifiers: Hypertension type: essential hypertension Qualified Code(s): I10 - Essential (primary) hypertension (5) DVT prophylaxis Current Visit: No Status: Acute Assessment and plan: Patient anticoagulated on heparin, bridging to warfarin (6) Obesity Current Visit: No Status: Chronic Assessment and plan: Chronic, patient has difficulty with diet education Qualifiers: Obesity type: due to excess calories Obesity classification: adult class 3 (BMI >= 40) Serious obesity comorbidity presence: without serious comorbidity Body mass index: BMI 40.0-44.9 Qualified Code(s): E66.01 - Morbid (severe) obesity due to excess calories; Z68.41 - Body mass index (BMI) 40.0-44.9, adult (7) CAD (coronary artery disease) Current Visit: No Status: Chronic Assessment and plan: chronic and controlled on home medications Qualifiers: Coronary Disease-Associated Artery/Lesion type: [place] artery [place] vs. transplanted heart: [place] heart Associated angina: angina presence unspecified Qualified Code(s): I25.10 - Atherosclerotic heart disease of [place] coronary artery without angina pectoris (8) Intertriginous dermatitis associated with moisture Current Visit: Yes Status: Chronic Assessment and plan: Patient chronically has this issue at home, we are treating with nystatin powder BID (9) Metabolic alkalosis Current Visit: Yes Status: Suspected Assessment and plan: Patient CO2 increased to 40, Chloride decreased to 89 Likely contraction alkalosis due to diuresis Patient not currently symptomatic Will continue to monitor with labs Will monitor patient clinical disposition for compensation - Time Spent With Patient Total time spent is greater than 50% in coordination of care (as documented) at patient's floor/unit and/or counseling patient: - Subjective Interval history: No acute events overnight. Patient informed that he is still being diuresed and the plan of care is to do that until he is stable. Patient denies chest pain, shortness of breath, fever or chills, nausea, vomiting, or diarrhea. He does complain of his remaining abdominal swelling. - Constitutional Vitals: Temp Pulse Resp BP Pulse Ox 98.1 F 85 18 103/64 98 01/30/18 03:15 01/30/18 07:07 01/30/18 08:06 01/30/18 07:07 01/30/18 08:06 General appearance: Present: cooperative, A&O X 3, morbidly obese, pleasant, no acute distress, answers questions appropriately Exam: No acute distress Alert and Oriented x3 Skin warm and dry Heart regular rate and rhythm Lungs clear to auscultation Abdomen obese and soft, mildly tender to palpation Legs edematous but compressible, without tenderness or heat Internal Medicine: Result - Labs CBC & Chem 7: 01/30/18 01:03 01/30/18 01:03 Labs: Short CBC 01/30/18 Range/Units 01:03 WBC 7.1 (4.3-11.1) K/mcL Hgb 12.6 L (12.9-16.9) g/dL Hct 40.0 (37.5-50.1) % Plt Count 157 (140-400) K/mcL Neutrophils # 4.6 (1.6-8.9) K/mcL BMP 01/30/18 01:03 Sodium 133 L Potassium 4.3 Chloride 89 L Carbon Dioxide 40 H* BUN 22 Creatinine 0.80 Glucose 171 H Calcium 9.1 - ABG Interpretation ABG results: PT/INR, D-dimer PT 26.7 Seconds (9.4-12.1) H 01/30/18 01:03 D-Dimer 1021 ng/mLFEU (0-500) H 01/24/18 19:36 - Diagnostic Studies Other Images Additional comments: Stress Test Impression: Medium sized, moderate-severe intensity partially fixed perfusion defect involving the mid to distal anterior wall, apex and apical inferior wall. There is worsening of perfusion in this area during stress. Findings likely represent infarct with [place]-infarct ischemia. Perfusion defect involving the inferolateral wall representing infarct. Pharmacologic stress ECG is negative for ischemia at level of heart rate achieved. No appreciable change from baseline ECG. Occasional PACs, occasional PVCs during testing. Infrequent short runs of NSVT. Low blood pressure starting the test, 92/52 mmHg. Very mild decrease with pharmacologic stress which can be a normal finding. Gated EF = 33%. The left ventricle is dilated. Findings communicated to ordering provider. 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 use: without detention use Diabetes mellitus complication status: without complication Qualified Code(s): E11.9 - Type 2 diabetes mellitus without complications (3) HTN (hypertension) Current Visit: No Status: Chronic Qualifiers: Hypertension type: essential hypertension Qualified Code(s): I10 - Essential (primary) hypertension (4) DVT prophylaxis Current Visit: No Status: Acute (5) Obesity Current Visit: No Status: Chronic Qualifiers: Obesity type: due to excess calories Obesity classification: adult class 3 (BMI >= 40) Serious obesity comorbidity presence: without serious comorbidity Body mass index: BMI 40.0-44.9 Qualified Code(s): E66.01 - Morbid (severe) obesity due to excess calories; Z68.41 - Body mass index (BMI) 40.0-44.9, adult (6) CAD (coronary artery disease) Current Visit: No Status: Chronic Qualifiers: Coronary Disease-Associated Artery/Lesion type: [place] artery [place] vs. transplanted heart: [place] heart Associated angina: angina presence unspecified Qualified Code(s): I25.10 - Atherosclerotic heart disease of [place] coronary artery without angina pectoris (7) Acute exacerbation of congestive heart failure Current Visit: Yes Status: Acute Qualifiers: Heart failure type: systolic Qualified Code(s): I50.23 - Acute on chronic systolic (congestive) heart failure (8) Intertriginous dermatitis associated with moisture Current Visit: Yes Status: Chronic (9) Metabolic alkalosis Current Visit: Yes Status: Suspected - Time Spent With Patient Total time spent is greater than 50% in coordination of care (as documented) at patient's floor/unit and/or counseling patient: - Constitutional Vitals: Temp Pulse Resp BP Pulse Ox 98.2 F 87 18 95/77 96 01/30/18 15:31 01/30/18 15:31 01/30/18 15:31 01/30/18 15:31 01/30/18 15:31 Internal Medicine: Result - Labs CBC & Chem 7: 01/30/18 01:03 01/30/18 01:03 Labs: Short CBC 01/30/18 Range/Units 01:03 WBC 7.1 (4.3-11.1) K/mcL Hgb 12.6 L (12.9-16.9) g/dL Hct 40.0 (37.5-50.1) % Plt Count 157 (140-400) K/mcL Neutrophils # 4.6 (1.6-8.9) K/mcL BMP 01/30/18 01:03 Sodium 133 L Potassium 4.3 Chloride 89 L Carbon Dioxide 40 H* BUN 22 Creatinine 0.80 Glucose 171 H Calcium 9.1 - ABG Interpretation ABG results: PT/INR, D-dimer PT 26.7 Seconds (9.4-12.1) H 01/30/18 01:03 D-Dimer 1021 ng/mLFEU (0-500) H 01/24/18 19:36 - Attending Attestation I examined this patient and my medical decision-making was reviewed with the Resident Physician. I agree with the documented findings, disposition and treatment plan as described except to the extent set forth below.
--- NOTE | 2018-01-30 18:09 | Event Note ---
Date of Encounter: 01/30/18 Time of Encounter: 18:08 Patient has changed his code status to full code.
[2018-01-31 05:17] LABS: Basophils % 0.6 %; Eosinophils # 0.4 K/mcL (0.0-0.6); Eosinophils % 5.5 %; Hematocrit 39.7 % (37.5-50.1); Hemoglobin 12.7 g/dL (12.9-16.9); Immature Granulocytes % 0.2 % (0-4); Lymphocytes # 0.9 K/mcL (0.6-4.6); Lymphocytes % 13.8 %; Mean Corpuscular Hemoglobin 30.1 pg (28.0-33.3); Mean Corpuscular Volume 94.1 fL (83.0-100.0); Mean Platelet Volume 10.1 fL (9.4-12.4); Monocytes % 14.7 %; Neutrophils # 4.3 K/mcL (1.6-8.9); Platelet Count 148 K/mcL (140-400); Red Blood Count 4.22 M/mcL (4.19-5.50); Red Cell Distribution Width 14.6 % (11.5-14.5); Segmented Neutrophils % 65.2 %
[2018-01-31 05:24] LABS: INR 1.9; Prothrombin Time 21.5 Seconds (9.4-12.1)
[2018-01-31 05:34] LABS: BUN/Creatinine Ratio 29 (6-26); Blood Urea Nitrogen 19 mg/dL (8-23); Calcium 9.1 mg/dL (8.6-10.3); Carbon Dioxide 40 mEq/L (23-29); Chloride 89 mEq/L (98-107); Glucose 128 mg/dL (70-105); Osmolality,Calculated 280 (280-300); Potassium 4.2 mEq/L (3.5-5.1); Sodium 133 mEq/L (136-145); eGFR For African Americans > 60 (> 60); eGFR For Non-African Americans > 60 (> 60)
[2018-01-31] MEDS: Tiotropium 18 MCG inhalation IH SCH (07:44)
[2018-01-31] MEDS: Metoprolol XL (24 HR) Succ 25 MG TAB.ER.24H PO SCH (08:48)
[2018-01-31] MEDS: Perphenazine 8 MG TABLET PO SCH (08:48)
[2018-01-31] MEDS: metOLazone 5 MG TABLET PO SCH (08:48)
[2018-01-31] MEDS: Cholestyramine 4 GM POWD.PACK PO SCH ×2 (08:48→18:13)
[2018-01-31] MEDS: Nystatin POWDER 30 GM BOTTLE TP SCH ×2 (08:49→21:14)
[2018-01-31] MEDS: Furosemide 40 MG/4 ML VIAL IVP SCH ×2 (08:49→21:15)
[2018-01-31] MEDS: Insulin LISPRO 300 UNITS/3 ML VIAL SQ SCH ×4 (08:49→21:16)
--- NOTE | 2018-01-31 10:28 | Event Note ---
Date of Encounter: 01/31/18 Time of Encounter: 10:15 Weekend events noted - pt has decided to pursue full aggressive treatment and desires AICD. He is up in chair during my visit and is at bedside. He changed code status back to FULL CODE, and still desires this. D/W Dr. Fletcher, Palliative will sign off. Please reconsult if needed.
--- NOTE | 2018-01-31 12:01 | Cardiology Progress Note ---
Date of Encounter: 01/31/18 Time of Encounter: 10:15 Assessment and Plan (1) Ischemic cardiomyopathy Current Visit: Yes Status: Acute Per cardiology: History of NSTEMI 03/2017--s/p high-risk PCI to LAD, PTCA diagonal at [facility] Continue asa,plavix, BB, statin. Previously recommended to have ICD placed and declined in the past. He now agrees to proceed. He did have 25 beat run NSVT during stay. Discussed with electrophysiology. Plan for possible ICD placement tomorrow after further review. (2) CAD (coronary artery disease) Current Visit: No Status: Chronic Per cardiology: Stress test completed during stay. There was a medium sized, moderate-severe intensity partially fixed perfusion defect involving the mid to distal anterior wall, apex and apical inferior wall. There is worsening of perfusion in this area during stress. Findings likely represent infarct with [place]-infarct ischemia. Perfusion defect involving the inferolateral wall representing infarct. Stress test was discussed with , stress results correlate to last [facility]. Continued medical management recommended. He denies chest pain. Qualifiers: Coronary Disease-Associated Artery/Lesion type: [place] artery [place] vs. transplanted heart: [place] heart Associated angina: angina presence unspecified Qualified Code(s): I25.10 - Atherosclerotic heart disease of [place] coronary artery without angina pectoris (3) Non-sustained ventricular tachycardia Current Visit: Yes Status: Acute Per cardiology: 25 beat run NSVT seen 01/28/18. On BB, unable to titrate further due to hypotension. Keep K >4, Mg > 2. No significant non-sustained runs over the weekend. Possible ICD placement tomorrow. (4) Systolic heart failure Current Visit: Yes Status: Acute Per caridology: Acute on chronic CHF; reported NYHA class III-IV symptoms on admit. Suspect possible fluid/dietary non-compliance. Reported 40 lb weight gain. Hx of ICMP. LHC at [facility] 03/2017--s/p high risk PCI to prox and mid LAD and PTCA of diag, and PCI to the OM. Repeat TTE this admission shows LVEF, 20-20%. Net negative 2515ml during stay and improving. Continue betablocker, will hold MARILYNN-i given marginal BP as we are diuresing. ON IV lasix 80mg BID and metalazone 5mg daily. Kidney function remains stable. Strict I&Os, daily weights (Standing), and Na/fluid restriction diet. BLE leg wraps. Continue diuresis. Qualifiers: Heart failure chronicity: acute on chronic Qualified Code(s): I50.23 - Acute on chronic systolic (congestive) heart failure Discussion w patient/family: The assessment and plan as outlined above was discussed with the patient and/or family members who expressed understanding and agreement. All questions were answered. Thank you for involving us in the care of your patient. Please call with any questions. Subjective [facility] Interval history: Mr Emmanuel is sitting in his chair with no complaints. He states that his legs feel better. Objective General: Conversant, No Apparent Distress HEENT: Atraumatic, Normocephaly, Mucus Membranes Moist Neck: No JVD, Normal carotid pulses Cardiac: Reg Rate and Rhythm, Normal S1 and S2, No Murmur Lungs: Normal Breath Sounds, No Wheeze, Rales, Rhonchi, Other (diminished bases) Neuro: Alert and responsive, No focal deficits noted Abdomen: Soft, Non-Tender Skin: No rashes noted on visualized skin Musculoskeletal: No Chest Wall Tenderness Extremities: No Clubbing, No Cyanosis, Normal Pulses, Other (2+ pitting edema up to knees. abdomen soft with no pitting. ) Results 01/31/18 04:50 01/31/18 04:50 Lab Results 01/31/18 01/31/18 01/31/18 04:50 04:50 04:50 WBC 6.5 Hgb 12.7 L Hct 39.7 Plt Count 148 INR 1.9 Sodium 133 L Potassium 4.2 Chloride 89 L Carbon Dioxide 40 H* BUN 19 Creatinine 0.65 L Glucose 128 H Calcium 9.1 - Imaging and Cardiology Echo: report reviewed - EKG Interpretation EKG results cardiology: personally reviewed - VTE Documentation of Mechanical Device: Graduated compression elastic hosiery Consult Discharge Plan - Plan Referrals: [facility] [place],Zackary Barth MD [Primary Care Provider] -
[2018-01-31 15:19] LABS: INR 1.8; Prothrombin Time 20.4 Seconds (9.4-12.1)
[2018-01-31] MEDS ORDERED: *HR* Heparin 5,000 UNIT/ML VIAL IVP ONE (17:10)
[2018-01-31] MEDS ORDERED: *HR* Heparin 5,000 UNIT/ML VIAL IVP PRN ×2 (17:10)
--- NOTE | 2018-01-31 17:20 | Internal Med Progress Note ---
<Santi Alexander - Last Filed: 01/31/18 17:17> Date of Encounter: 01/31/18 Time of Encounter: 17:18 - Assessment and plan (1) Acute exacerbation of congestive heart failure Current Visit: Yes Status: Acute Assessment and plan: Patient is making progress with diuresis, will continue with lasix and metolazone BIPAP prn dyspnea fluid restriction ECP tentatively planing ICD for tomorrow Coumadin held Heparin started, will hold in AM Qualifiers: Heart failure type: systolic Qualified Code(s): I50.23 - Acute on chronic systolic (congestive) heart failure (2) COPD (chronic obstructive pulmonary disease) Current Visit: No Status: Chronic Assessment and plan: Chronic and controlled on home meds. The patient has been well maintained on 2L nasal cannula during admission without issues. 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 nursing home use Diabetes mellitus complication status: without complication Qualified Code(s): E11.9 - Type 2 diabetes mellitus without complications (4) HTN (hypertension) Current Visit: No Status: Chronic Assessment and plan: Chronic and controlled on home meds, lisinopril is being held here due to hypotension Qualifiers: Hypertension type: essential hypertension Qualified Code(s): I10 - Essential (primary) hypertension (5) DVT prophylaxis Current Visit: No Status: Acute Assessment and plan: Patient anticoagulated on heparin (6) Obesity Current Visit: No Status: Chronic Assessment and plan: Chronic, patient has difficulty with diet education Qualifiers: Obesity type: due to excess calories Obesity classification: adult class 3 (BMI >= 40) Serious obesity comorbidity presence: without serious comorbidity Body mass index: BMI 40.0-44.9 Qualified Code(s): E66.01 - Morbid (severe) obesity due to excess calories; Z68.41 - Body mass index (BMI) 40.0-44.9, adult (7) CAD (coronary artery disease) Current Visit: No Status: Chronic Assessment and plan: chronic and controlled on home medications Qualifiers: Coronary Disease-Associated Artery/Lesion type: [place] artery [place] vs. transplanted heart: [place] heart Associated angina: angina presence unspecified Qualified Code(s): I25.10 - Atherosclerotic heart disease of [place] coronary artery without angina pectoris (8) Intertriginous dermatitis associated with moisture Current Visit: Yes Status: Chronic Assessment and plan: Patient chronically has this issue at home, we are treating with nystatin powder BID (9) Metabolic alkalosis Current Visit: Yes Status: Suspected Assessment and plan: Patient CO2 increased to 40, Chloride decreased to 89 Likely contraction alkalosis due to diuresis Patient not currently symptomatic Will continue to monitor with labs Will monitor patient clinical disposition for compensation - Time Spent With Patient Total time spent is greater than 50% in coordination of care (as documented) at patient's floor/unit and/or counseling patient: - Subjective Interval history: No acute events overnight. Patient informed that he is still being diuresed and the plan of care is to do that until he is stable. Patient denies chest pain, shortness of breath, fever or chills, nausea, vomiting, or diarrhea. He does complain of his remaining abdominal swelling. - Constitutional Vitals: Temp Pulse Resp BP Pulse Ox 97.9 F 79 17 104/68 97 01/31/18 17:01 01/31/18 17:01 01/31/18 17:01 01/31/18 17:01 01/31/18 17:01 General appearance: Present: cooperative, A&O X 3, morbidly obese, pleasant, no acute distress, answers questions appropriately Exam: No acute distress Alert and oriented x 3 Abdomen soft and non tender except for lower abdomen near previous hernia legs edematous but without tenderness, compressible heart regular rate and rhythm without murmur, rub, or ping lungs clear to auscultation Internal Medicine: Result - Labs CBC & Chem 7: 01/31/18 04:50 01/31/18 04:50 Labs: Short CBC 01/31/18 Range/Units 04:50 WBC 6.5 (4.3-11.1) K/mcL Hgb 12.7 L (12.9-16.9) g/dL Hct 39.7 (37.5-50.1) % Plt Count 148 (140-400) K/mcL Neutrophils # 4.3 (1.6-8.9) K/mcL BMP 01/31/18 04:50 Sodium 133 L Potassium 4.2 Chloride 89 L Carbon Dioxide 40 H* BUN 19 Creatinine 0.65 L Glucose 128 H Calcium 9.1 - ABG Interpretation ABG results: PT/INR, D-dimer PT 20.4 Seconds (9.4-12.1) H 01/31/18 14:56 D-Dimer 1021 ng/mLFEU (0-500) H 01/24/18 19:36 - VTE Documentation of Mechanical Device: Graduated compression elastic hosiery Consult Discharge Plan - Plan Referrals: [facility] [place],Zackary Barth MD [Primary Care Provider] - <Ag Fletcher - Last Filed: 01/31/18 17:53> Date of Encounter: 01/31/18 - Assessment and plan (1) COPD (chronic obstructive pulmonary disease) Current Visit: No Status: Chronic 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 - Other emphysema (2) Diabetes Current Visit: No Status: Chronic Qualifiers: Diabetes mellitus type: type 2 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: without nursing home use Diabetes mellitus complication status: without complication Qualified Code(s): E11.9 - Type 2 diabetes mellitus without complications (3) HTN (hypertension) Current Visit: No Status: Chronic Qualifiers: Hypertension type: essential hypertension Qualified Code(s): I10 - Essential (primary) hypertension (4) DVT prophylaxis Current Visit: No Status: Acute (5) Obesity Current Visit: No Status: Chronic Qualifiers: Obesity type: due to excess calories Obesity classification: adult class 3 (BMI >= 40) Serious obesity comorbidity presence: without serious comorbidity Body mass index: BMI 40.0-44.9 Qualified Code(s): E66.01 - Morbid (severe) obesity due to excess calories; Z68.41 - Body mass index (BMI) 40.0-44.9, adult (6) CAD (coronary artery disease) Current Visit: No Status: Chronic Qualifiers: Coronary Disease-Associated Artery/Lesion type: [place] artery [place] vs. transplanted heart: [place] heart Associated angina: angina presence unspecified Qualified Code(s): I25.10 - Atherosclerotic heart disease of [place] coronary artery without angina pectoris (7) Acute exacerbation of congestive heart failure Current Visit: Yes Status: Acute Qualifiers: Heart failure type: systolic Qualified Code(s): I50.23 - Acute on chronic systolic (congestive) heart failure (8) Intertriginous dermatitis associated with moisture Current Visit: Yes Status: Chronic (9) Metabolic alkalosis Current Visit: Yes Status: Suspected - Time Spent With Patient Total time spent is greater than 50% in coordination of care (as documented) at patient's floor/unit and/or counseling patient: - Constitutional Vitals: Temp Pulse Resp BP Pulse Ox 97.9 F 79 17 104/68 97 01/31/18 17:01 01/31/18 17:01 01/31/18 17:01 01/31/18 17:01 01/31/18 17:01 Internal Medicine: Result - Labs CBC & Chem 7: 01/31/18 04:50 01/31/18 04:50 Labs: Short CBC 01/31/18 Range/Units 04:50 WBC 6.5 (4.3-11.1) K/mcL Hgb 12.7 L (12.9-16.9) g/dL Hct 39.7 (37.5-50.1) % Plt Count 148 (140-400) K/mcL Neutrophils # 4.3 (1.6-8.9) K/mcL BMP 01/31/18 04:50 Sodium 133 L Potassium 4.2 Chloride 89 L Carbon Dioxide 40 H* BUN 19 Creatinine 0.65 L Glucose 128 H Calcium 9.1 - ABG Interpretation ABG results: PT/INR, D-dimer PT 20.4 Seconds (9.4-12.1) H 01/31/18 14:56 D-Dimer 1021 ng/mLFEU (0-500) H 01/24/18 19:36 - Attending Attestation I examined this patient and my medical decision-making was reviewed with the Resident Physician. I agree with the documented findings, disposition and treatment plan as described except to the extent set forth below. Patient doing better today. at bedside. EP consulted likely will have ICD placed. Today lung sounds shows better air exchange at bases and less rales. CVS unremarkable. Ext: edema improving. Continue Diuresis and follow-up EP recommendations.
[2018-01-31] MEDS ORDERED: *HR* Warfarin 3 MG TABLET PO SCH (18:00)
[2018-01-31] MEDS: Heparin 25,000 UNIT/500 ML D5W 25,000 UNIT/500 ML BAG IVC SCH (18:13)
[2018-02-01 01:52] LABS: Basophils # 0.1 K/mcL (0.0-0.2); Basophils % 0.9 %; Eosinophils # 0.5 K/mcL (0.0-0.6); Hematocrit 38.6 % (37.5-50.1); Hemoglobin 11.9 g/dL (12.9-16.9); INR 1.9; Immature Granulocytes % 0.3 % (0-4); Lymphocytes % 15.7 %; Mean Corpuscular HGB Conc 30.8 g/dL (31.6-35.5); Mean Corpuscular Volume 93.9 fL (83.0-100.0); Mean Platelet Volume 10.5 fL (9.4-12.4); Monocytes # 0.9 K/mcL (0.0-1.3); Monocytes % 13.7 %; Neutrophils # 4.1 K/mcL (1.6-8.9); Platelet Count 153 K/mcL (140-400); Prothrombin Time 21.2 Seconds (9.4-12.1); Red Blood Count 4.11 M/mcL (4.19-5.50); Red Cell Distribution Width 14.5 % (11.5-14.5); Segmented Neutrophils % 62.4 %
[2018-02-01 02:06] LABS: BUN/Creatinine Ratio 27 (6-26); Blood Urea Nitrogen 22 mg/dL (8-23); Calcium 9.4 mg/dL (8.6-10.3); Carbon Dioxide 45 mEq/L (23-29); Chloride 86 mEq/L (98-107); Glucose 139 mg/dL (70-105); Osmolality,Calculated 284 (280-300); Potassium 3.9 mEq/L (3.5-5.1); Sodium 134 mEq/L (136-145); eGFR For African Americans > 60 (> 60); eGFR For Non-African Americans > 60 (> 60)
[2018-02-01 02:10] LABS: Heparin anti-factor XA UFH 0.63 IU/mL (0.30-0.70)
[2018-02-01] MEDS: Tiotropium 18 MCG inhalation IH SCH (07:45)
--- NOTE | 2018-02-01 09:41 | Internal Med Progress Note ---
<Santi Alexander - Last Filed: 02/01/18 13:28> Date of Encounter: 02/01/18 Time of Encounter: 09:36 - Assessment and plan (1) Acute exacerbation of congestive heart failure Current Visit: Yes Status: Acute Assessment and plan: Patient is making progress with diuresis, will continue with lasix and metolazone, lasix decreased to 40 mg IV BID due to worsening contraction alkalosis BIPAP prn dyspnea fluid restriction AICD implantation planned for this afternoon, patient NPO Coumadin held, heparin started to be held for surgery Qualifiers: Heart failure type: systolic Qualified Code(s): I50.23 - Acute on chronic systolic (congestive) heart failure (2) COPD (chronic obstructive pulmonary disease) Current Visit: No Status: Chronic Assessment and plan: Chronic and controlled on home meds. The patient has been well maintained on 2L nasal cannula during admission without issues. 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 - Other emphysema (3) Diabetes Current Visit: No Status: Chronic Assessment and plan: Continue ISS and cardiac/diabetic diet Qualifiers: Diabetes mellitus type: type 2 Diabetes mellitus intermediate school teacher insulin use: without intermediate school teacher use Diabetes mellitus complication status: without complication Qualified Code(s): E11.9 - Type 2 diabetes mellitus without complications (4) HTN (hypertension) Current Visit: No Status: Chronic Assessment and plan: Chronic and controlled on home meds, lisinopril is being held here due to hypotension Qualifiers: Hypertension type: essential hypertension Qualified Code(s): I10 - Essential (primary) hypertension (5) DVT prophylaxis Current Visit: No Status: Acute Assessment and plan: Patient anticoagulated on heparin (6) Obesity Current Visit: No Status: Chronic Assessment and plan: Chronic, patient has difficulty with diet education Qualifiers: Obesity type: due to excess calories Obesity classification: adult class 3 (BMI >= 40) Serious obesity comorbidity presence: without serious comorbidity Body mass index: BMI 40.0-44.9 Qualified Code(s): E66.01 - Morbid (severe) obesity due to excess calories; Z68.41 - Body mass index (BMI) 40.0-44.9, adult (7) CAD (coronary artery disease) Current Visit: No Status: Chronic Assessment and plan: chronic and controlled on home medications Qualifiers: Coronary Disease-Associated Artery/Lesion type: [place]las artery [place] vs. transplanted heart: douglas heart Associated angina: angina presence unspecified Qualified Code(s): I25.10 - Atherosclerotic heart disease of douglas coronary artery without angina pectoris (8) Intertriginous dermatitis associated with moisture Current Visit: Yes Status: Chronic Assessment and plan: Patient chronically has this issue at home, we are treating with nystatin powder BID (9) Metabolic alkalosis Current Visit: Yes Status: Suspected Assessment and plan: Patient CO2 increased to 45, Chloride decreased to 86 Likely contraction alkalosis due to diuresis Patient not currently symptomatic Will continue to monitor with labs Lasix decreased to 40mg IV BID Will monitor patient clinical disposition for compensation - Time Spent With Patient Total time spent is greater than 50% in coordination of care (as documented) at patient's floor/unit and/or counseling patient: - Subjective Interval history: No acute events overnight. Patient informed that we are still diuresisng him and that he is scheduled for ICD placement this afternoon. Patient denies chest pain, shortness of breath, fever or chills, nausea, vomiting, or diarrhea. He does complain of his remaining abdominal swelling, but admits it has decreased. - Constitutional Vitals: Temp Pulse Resp BP Pulse Ox 98.6 F 69 18 106/67 96 02/01/18 07:39 02/01/18 07:39 02/01/18 07:39 02/01/18 07:39 02/01/18 03:50 General appearance: Present: cooperative, A&O X 3, morbidly obese, pleasant, no acute distress, answers questions appropriately Exam: Patient in no acute distress, resting comfortably Alert and oriented x 3 Heart in regular rate and rhythm without murmur, rub, or ping Lungs clear to auscultation, poor respiratory effort Abdomen obese but soft, edematous but improved Lower extremities edematous but improved, no skin changes, shwetha wraps on Intertriginous area under pannus erythematous and tender but improved Internal Medicine: Result - Labs CBC & Chem 7: 02/01/18 00:47 02/01/18 00:47 Labs: Short CBC 02/01/18 Range/Units 00:47 WBC 6.6 (4.3-11.1) K/mcL Hgb 11.9 L (12.9-16.9) g/dL Hct 38.6 (37.5-50.1) % Plt Count 153 (140-400) K/mcL Neutrophils # 4.1 (1.6-8.9) K/mcL BMP 02/01/18 00:47 Sodium 134 L Potassium 3.9 Chloride 86 L Carbon Dioxide 45 H* BUN 22 Creatinine 0.83 Glucose 139 H Calcium 9.4 - ABG Interpretation ABG results: PT/INR, D-dimer PT 21.2 Seconds (9.4-12.1) H 02/01/18 00:47 D-Dimer 1021 ng/mLFEU (0-500) H 01/24/18 19:36 - VTE Documentation of Mechanical Device: Graduated compression elastic hosiery Consult Discharge Plan - Plan Referrals: Zackary fonseca MD [Primary Care Provider] - <Ag Fletcher - Last Filed: 02/02/18 00:01> Date of Encounter: 02/01/18 - Assessment and plan (1) COPD (chronic obstructive pulmonary disease) Current Visit: No Status: Chronic 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 - Other emphysema (2) Diabetes Current Visit: No Status: Chronic Qualifiers: Diabetes mellitus type: type 2 Diabetes mellitus assisted insulin use: without assisted use Diabetes mellitus complication status: without complication Qualified Code(s): E11.9 - Type 2 diabetes mellitus without complications (3) HTN (hypertension) Current Visit: No Status: Chronic Qualifiers: Hypertension type: essential hypertension Qualified Code(s): I10 - Essential (primary) hypertension (4) DVT prophylaxis Current Visit: No Status: Acute (5) Obesity Current Visit: No Status: Chronic Qualifiers: Obesity type: due to excess calories Obesity classification: adult class 3 (BMI >= 40) Serious obesity comorbidity presence: without serious comorbidity Body mass index: BMI 40.0-44.9 Qualified Code(s): E66.01 - Morbid (severe) obesity due to excess calories; Z68.41 - Body mass index (BMI) 40.0-44.9, adult (6) CAD (coronary artery disease) Current Visit: No Status: Chronic Qualifiers: Coronary Disease-Associated Artery/Lesion type: d[place]las artery [place] vs. transplanted heart: douglas heart Associated angina: angina presence unspecified Qualified Code(s): I25.10 - Atherosclerotic heart disease of douglas coronary artery without angina pectoris (7) Acute exacerbation of congestive heart failure Current Visit: Yes Status: Acute Qualifiers: Heart failure type: systolic Qualified Code(s): I50.23 - Acute on chronic systolic (congestive) heart failure (8) Intertriginous dermatitis associated with moisture Current Visit: Yes Status: Chronic (9) Metabolic alkalosis Current Visit: Yes Status: Suspected - Time Spent With Patient Total time spent is greater than 50% in coordination of care (as documented) at patient's floor/unit and/or counseling patient: - Constitutional Vitals: Temp Pulse Resp BP Pulse Ox 98.0 F 90 17 98/59 94 02/01/18 21:19 02/01/18 21:19 02/01/18 21:19 02/01/18 21:19 02/01/18 21:19 Internal Medicine: Result - Labs CBC & Chem 7: 02/01/18 00:47 02/01/18 00:47 Labs: Short CBC 02/01/18 Range/Units 00:47 WBC 6.6 (4.3-11.1) K/mcL Hgb 11.9 L (12.9-16.9) g/dL Hct 38.6 (37.5-50.1) % Plt Count 153 (140-400) K/mcL Neutrophils # 4.1 (1.6-8.9) K/mcL BMP 02/01/18 00:47 Sodium 134 L Potassium 3.9 Chloride 86 L Carbon Dioxide 45 H* BUN 22 Creatinine 0.83 Glucose 139 H Calcium 9.4 - ABG Interpretation ABG results: PT/INR, D-dimer PT 21.2 Seconds (9.4-12.1) H 02/01/18 00:47 D-Dimer 1021 ng/mLFEU (0-500) H 01/24/18 19:36 - Impressions Impressions Chest X-Ray 02/01/18 14:21 IMPRESSION: No acute process. Stable cardiomegaly D/ / Sj Barton MD / Sj Barton MD Interpreting Provider: Sj Barton MD - Attending Attestation I examined this patient and my medical decision-making was reviewed with the Resident Physician. I agree with the documented findings, disposition and treatment plan as described except to the extent set forth below. Patient had ICD placed today. He is doing well. Edema had slight improvement today compared to yesterday. Lung sounds more clear and gives better respiratory effort. Edema of lower extremities 2+ up to thighs equal bilaterally. No JVD appreciated. Lowering Lasix dose today. Resume anticoagulation because of history of LV thrombus. Patient is high risk and should probably be bridged with heparin until therapeutic INR.
[2018-02-01] MEDS ORDERED: *HR* Warfarin 10 MG TABLET PO ONE (10:24)
[2018-02-01] MEDS: Cholestyramine 4 GM POWD.PACK PO SCH ×2 (11:08→17:49)
[2018-02-01] MEDS: Insulin LISPRO 300 UNITS/3 ML VIAL SQ SCH ×4 (11:08→21:47)
[2018-02-01] MEDS: Perphenazine 8 MG TABLET PO SCH (11:09)
[2018-02-01] MEDS: metOLazone 5 MG TABLET PO SCH (11:10)
[2018-02-01] MEDS: Metoprolol XL (24 HR) Succ 25 MG TAB.ER.24H PO SCH (11:10)
[2018-02-01] MEDS: Furosemide 40 MG/4 ML VIAL IVP SCH ×2 (11:10→17:50)
[2018-02-01] MEDS: Nystatin POWDER 30 GM BOTTLE TP SCH ×2 (11:18→21:48)
--- NOTE | 2018-02-01 12:20 | Event Note ---
Date of Encounter: 02/01/18 Time of Encounter: 12:17 - Cardiology Event Note PLan for ICD today for cardiomyopathy, non-sustained VT. RIsks versus benefits of ICD placement explained to pateint and who are agreeable to proceed. Patient now diursing well. Net neagtive 3+ liters. Edema imrpoved. Able to tolerate laying flat. Of note, has history of LV thrombus. Recommended continuing coumadin. Heparin for bridging was started yesterday, currently heparin drip on hold for ICD placement. Further recommendations pending ICD placement.
[2018-02-01] MEDS ORDERED: Water for inj. (sterile) 10 ML IV ONE (12:38)
[2018-02-01] MEDS ORDERED: 0.9 % Sodium Chloride 500 ML ONE (12:38)
[2018-02-01] MEDS ORDERED: 0.9 % Sodium Chloride 1,000 ML ONE (12:52)
--- NOTE | 2018-02-01 12:52 | Pre-Sedation Evaluation ---
Pre-sedation evaluation - Pre-sedation checklist Date of procedure: 02/01/18 Procedure: icd placenment Recent Vitals: Last Vital Signs Temp 98.9 F 02/01/18 11:00 Pulse 75 02/01/18 11:00 Resp 18 02/01/18 11:00 BP 102/64 02/01/18 11:00 Pulse Ox 95 02/01/18 11:00 H&P (including ROS) documented in medical record: Yes Previous reaction to sedatives/anesthetics: No Dietary Status: NPO after Midnight Airway Assessment: Patient can open mouth completely, TMJ function normal, Micrognathia (under-bite, receding chin) absent Dentition: No loose teeth or bridges Possible difficult airway: No ASA Classification *see protocol: CLASS II-Mild systemic disease Plan of Care: Pt appropriate candidate for procedure/moderate/conscious sedation , Risks/benefits of procedure/sedation discussed w/ patient/family Cardiac Registry (Cardio Only) - Functional Capacity - Clincal Frailty Scale
[2018-02-01] MEDS ORDERED: *HR* FentaNYL (PF) 100 MCG/2 ML VIAL ONE (13:23)
[2018-02-01] MEDS ORDERED: *HR* Midazolam HCl 2 MG/2 ML VIAL ONE ×2 (13:24→13:55)
[2018-02-01] MEDS ORDERED: Warfarin perPT PO PRN (18:00)
[2018-02-01] MEDS: Heparin 25,000 UNIT/500 ML D5W 25,000 UNIT/500 ML BAG IVC SCH (22:18)
[2018-02-02 06:13] LABS: INR 1.6; Prothrombin Time 17.6 Seconds (9.4-12.1)
[2018-02-02] MEDS: Tiotropium 18 MCG inhalation IH SCH (07:46)
--- NOTE | 2018-02-02 08:52 | Internal Med Progress Note ---
<Nancy Benton N - Last Filed: 02/02/18 18:42> Date of Encounter: 02/02/18 Time of Encounter: 08:51 - Assessment and plan (1) Metabolic alkalosis Current Visit: Yes Status: Suspected Assessment and plan: Patient has contraction alkalosis due to lasix diuresis. CO2 remains elevated. Decreased lasix to 20mg IVP BID and discontinued metalozone. Added acetazolamide 250mg BID to his medication regimen. Plan to continue monitoring of labs with cautious diuresis. (2) Acute exacerbation of congestive heart failure Current Visit: Yes Status: Acute Assessment and plan: Diuresis with lasix and acetazolamide. Patient denies symptoms. He does have 1+ pitting edema in bilateral lower extremities. Plan to continue diuresis. Qualifiers: Heart failure type: systolic Qualified Code(s): I50.23 - Acute on chronic systolic (congestive) heart failure (3) COPD (chronic obstructive pulmonary disease) Current Visit: No Status: Chronic Assessment and plan: Chronic and controlled on home medications. Patient does not appear to be having a COPD exacerbation. 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 - Other emphysema (4) CAD (coronary artery disease) Current Visit: No Status: Chronic Assessment and plan: Stable. Continue home medication regimen. Qualifiers: Coronary Disease-Associated Artery/Lesion type: [place] artery [place] vs. transplanted heart: [place] heart Associated angina: angina presence unspecified Qualified Code(s): I25.10 - Atherosclerotic heart disease of [place] coronary artery without angina pectoris (5) Diabetes Current Visit: No Status: Chronic Assessment and plan: Continue accuchecks and sliding scale insulin per protocol. Patient should maintain a cardiac/diabetic diet Qualifiers: Diabetes mellitus type: type 2 Diabetes mellitus senior living insulin use: without senior living use Diabetes mellitus complication status: without complication Qualified Code(s): E11.9 - Type 2 diabetes mellitus without complications (6) HTN (hypertension) Current Visit: No Status: Chronic Assessment and plan: Blood pressure is within normal limits. Plan to continue home regimen. Qualifiers: Hypertension type: essential hypertension Qualified Code(s): I10 - Essential (primary) hypertension (7) DVT prophylaxis Current Visit: No Status: Acute Assessment and plan: Patient is anticoagulated with heparin. - Time Spent With Patient Total time spent is greater than 50% in coordination of care (as documented) at patient's floor/unit and/or counseling patient: - Subjective Interval history: Mr. Emmanuel was admitted to the hospital with a CHF exacerbation. He received aggressive diuresis with lasix. He developed contracture alkalosis, which required slower diuresis. He is currently 1 day s/p AICD placement. He voices that he would like to go home. He denies any fevers, shortness of breath, chest pain, or arrhythmia. - Constitutional Vitals: Temp Pulse Resp BP Pulse Ox 98.5 F 80 16 109/76 99 02/02/18 06:48 02/02/18 06:48 02/02/18 07:46 02/02/18 06:48 02/02/18 07:46 Exam: Patient is awake and alert. He is sitting in the chair in no acute distress. - Head Additional comments: Atraumatic and normocephalic. - Respiratory Additional comments: Occasional crackles. Diffusely decreased lung sounds. - Cardiovascular Additional comments: Regular rate and rhythm. No gallops, murmurs, or rubs. - Extremities Exam Additional comments: 1+ pitting edema in bilateral lower extremities. Patient moves all extremities easily and without restriction. Internal Medicine: Result - Labs CBC & Chem 7: 02/02/18 09:30 02/02/18 09:30 - ABG Interpretation ABG results: PT/INR, D-dimer PT 17.6 Seconds (9.4-12.1) H 02/02/18 05:35 D-Dimer 1021 ng/mLFEU (0-500) H 01/24/18 19:36 - Impressions Impressions Chest X-Ray 02/01/18 14:21 IMPRESSION: No acute process. Stable cardiomegaly D/ / Sj Barton MD / Sj Barton MD Interpreting Provider: Sj Barton MD - VTE Documentation of Mechanical Device: Graduated compression elastic hosiery Consult Discharge Plan - Plan Instructions: Meal Planning with Diabetes Exchanges (DC), Low Sodium Diet (DC) [facility] [facility] - 02/18/18 4:30 pm (office said this is the earliest appointment they had) <Elmira Maldonado - Last Filed: 02/03/18 07:46> Date of Encounter: 02/02/18 - Assessment and plan (1) COPD (chronic obstructive pulmonary disease) Current Visit: No Status: Chronic 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 - Other emphysema (2) Diabetes Current Visit: No Status: Chronic Qualifiers: Diabetes mellitus type: type 2 Diabetes mellitus senior living insulin use: without terminal system operator use Diabetes mellitus complication status: without complication Qualified Code(s): E11.9 - Type 2 diabetes mellitus without complications (3) HTN (hypertension) Current Visit: No Status: Chronic Qualifiers: Hypertension type: essential hypertension Qualified Code(s): I10 - Essential (primary) hypertension (4) DVT prophylaxis Current Visit: No Status: Acute (5) CAD (coronary artery disease) Current Visit: No Status: Chronic Qualifiers: Coronary Disease-Associated Artery/Lesion type: [place] artery [place] vs. transplanted heart: [place] heart Associated angina: angina presence unspecified Qualified Code(s): I25.10 - Atherosclerotic heart disease of [place] coronary artery without angina pectoris (6) Acute exacerbation of congestive heart failure Current Visit: Yes Status: Acute Qualifiers: Heart failure type: systolic Qualified Code(s): I50.23 - Acute on chronic systolic (congestive) heart failure (7) Metabolic alkalosis Current Visit: Yes Status: Suspected - Time Spent With Patient Total time spent is greater than 50% in coordination of care (as documented) at patient's floor/unit and/or counseling patient: - Constitutional Vitals: Temp Pulse Resp BP Pulse Ox 98.1 F 87 19 120/84 98 02/02/18 16:23 02/02/18 16:23 02/02/18 16:23 02/02/18 16:23 02/02/18 16:23 Internal Medicine: Result - Labs CBC & Chem 7: 02/03/18 03:03 02/03/18 03:03 Labs: Short CBC 02/02/18 Range/Units 09:30 WBC 7.1 (4.3-11.1) K/mcL Hgb 12.9 (12.9-16.9) g/dL Hct 40.3 (37.5-50.1) % Plt Count 155 (140-400) K/mcL Neutrophils # 5.2 (1.6-8.9) K/mcL BMP 02/02/18 09:30 Sodium 135 L Potassium 4.0 Chloride 84 L Carbon Dioxide 44 H* BUN 18 Creatinine 0.81 Glucose 300 H Calcium 9.6 - ABG Interpretation ABG results: PT/INR, D-dimer PT 17.6 Seconds (9.4-12.1) H 02/02/18 05:35 D-Dimer 1021 ng/mLFEU (0-500) H 01/24/18 19:36 - Impressions Impressions Chest X-Ray 02/02/18 06:00 IMPRESSION: Pacemaker. Stable cardiomegaly. Atelectasis or infiltrates in the lung bases with bilateral pleural effusions. Follow up to resolution is suggested. D/ / 02/02/2018 10:27:40 Susan Betancourt MD / nury Interpreting Provider: Susan Betancourt MD - Attending Attestation I examined this patient and my medical decision-making was reviewed with the Resident Physician Dr. Benton. I agree with the documented findings, disposition and treatment plan as described except to the extent set forth below. Mr. Emmanuel is a 62 y/o M with known PMH of ischemic cardiomyopathy with LVEF ~15-20%, LV thrombus on Coumadin, CAD s/p PCI, COPD, HTN, and DMII who presented to the ED with complaints of worsening shortness of breath, lower extremity edema, and increase in abdominal girth that has been ongoing for the past 2 months. Pt was started on aggressive IV diuresis with Lasix 40 BID + Metolazone. He was started on heparin gtt and did placed AICD y/d. Today pt denied any CP. Still has some SOB and MEYER. Currently on 3 lit O2. Gen: A, A< O x 3 Chest: Diminished BS b/l , mild crackles. , rales + Heart: S1S2+ RRR, no murmurs Abd: Soft Ext: 2+ pitting edema A/P 1. Acute on chronic systolic CHF exacerbation cont diuresis.. will cut back on Lasix dose due to worsening metabolic alkalosis 2. Acute on chronic hypoxic resp failure due to CHF eacerbation cont diuresis cont close monitoring may need home O2 eval.. he does have 2 lit O2 as needed at bed time only 3. Metabolic alkalosis mostly due to aggresive diuresis will cut back on lasix and dc metolazone started on Acetazolamide
[2018-02-02 09:48] LABS: Basophils % 0.6 %; Eosinophils # 0.3 K/mcL (0.0-0.6); Eosinophils % 4.4 %; Hematocrit 40.3 % (37.5-50.1); Hemoglobin 12.9 g/dL (12.9-16.9); Immature Granulocytes % 0.3 % (0-4); Lymphocytes # 0.7 K/mcL (0.6-4.6); Lymphocytes % 9.9 %; Mean Corpuscular Hemoglobin 30.1 pg (28.0-33.3); Mean Corpuscular Volume 94.2 fL (83.0-100.0); Mean Platelet Volume 10.5 fL (9.4-12.4); Monocytes # 0.8 K/mcL (0.0-1.3); Neutrophils # 5.2 K/mcL (1.6-8.9); Platelet Count 155 K/mcL (140-400); Red Blood Count 4.28 M/mcL (4.19-5.50); Red Cell Distribution Width 14.5 % (11.5-14.5); Segmented Neutrophils % 73.8 %
[2018-02-02 10:11] LABS: Activated Partial Thrombo Time 123.9 Seconds (26.0-36.0)
[2018-02-02 10:15] LABS: BUN/Creatinine Ratio 22 (6-26); Blood Urea Nitrogen 18 mg/dL (8-23); Calcium 9.6 mg/dL (8.6-10.3); Carbon Dioxide 44 mEq/L (23-29); Chloride 84 mEq/L (98-107); Glucose 300 mg/dL (70-105); Osmolality,Calculated 293 (280-300); Sodium 135 mEq/L (136-145); eGFR For African Americans > 60 (> 60); eGFR For Non-African Americans > 60 (> 60)
[2018-02-02 10:17] LABS: Heparin anti-factor XA UFH 0.54 IU/mL (0.30-0.70)
[2018-02-02] MEDS: Insulin LISPRO 300 UNITS/3 ML VIAL SQ SCH ×4 (10:32→21:42)
[2018-02-02] MEDS: Perphenazine 8 MG TABLET PO SCH (10:34)
[2018-02-02] MEDS: Cholestyramine 4 GM POWD.PACK PO SCH ×2 (10:35→16:50)
[2018-02-02] MEDS: Nystatin POWDER 30 GM BOTTLE TP SCH ×2 (10:38→21:42)
[2018-02-02] MEDS: Metoprolol XL (24 HR) Succ 25 MG TAB.ER.24H PO SCH (10:41)
[2018-02-02] MEDS: Furosemide 40 MG/4 ML VIAL IVP SCH ×2 (10:42→16:50)
[2018-02-02] MEDS: metOLazone 5 MG TABLET PO SCH (10:42)
[2018-02-02] MEDS ORDERED: Ipratropium/Albuterol Neb 3 ML IH PRN (11:34)
[2018-02-02] MEDS: acetaZOLAMIDE 250 MG TABLET PO SCH ×2 (12:28→21:42)
--- NOTE | 2018-02-02 13:45 | Cardiology Progress Note ---
Date of Encounter: 02/02/18 Time of Encounter: 10:30 Assessment and Plan (1) Systolic heart failure Current Visit: Yes Status: Acute Per caridology: Acute on chronic CHF; reported NYHA class III-IV symptoms on admit. Suspect possible fluid/dietary non-compliance. Reported 40 lb weight gain. Hx of ICMP. LHC at [facility] 03/2017--s/p high risk PCI to prox and mid LAD and PTCA of diag, and PCI to the OM. Repeat TTE this admission shows LVEF, 20-20%. Net negative 5983ml during stay and improving. Continue betablocker, will hold MARILYNN-i given marginal BP as we are diuresing. ON IV lasix 40mg BID and metalazone Kidney function remains stable. Strict I&Os, daily weights (Standing), and Na/fluid restriction diet. BLE leg wraps. Continue diuresis. Recommend continuing diuresis until euvolemic. Edema improving. Cardiology will sign off and will follow in outpatient setting. Follow up set. Qualifiers: Heart failure chronicity: acute on chronic Qualified Code(s): I50.23 - Acute on chronic systolic (congestive) heart failure (2) Ischemic cardiomyopathy Current Visit: Yes Status: Acute Per cardiology: History of NSTEMI 03/2017--s/p high-risk PCI to LAD, PTCA diagonal at [facility] Continue asa,plavix, BB, statin. Previously recommended to have ICD placed and declined in the past. He now agrees to proceed. He did have 25 beat run NSVT during stay. S/p ICD yesterday. Device check Normal functioning, no events. Chest x-ray without pneumothorax. Post device implantation education reviewed with patient. (3) CAD (coronary artery disease) Current Visit: No Status: Chronic Per cardiology: Stress test completed during stay. There was a medium sized, moderate-severe intensity partially fixed perfusion defect involving the mid to distal anterior wall, apex and apical inferior wall. There is worsening of perfusion in this area during stress. Findings likely represent infarct with dalton-infarct ischemia. Perfusion defect involving the inferolateral wall representing infarct. Stress test was discussed with , stress results correlate to last LHC. Continued medical management recommended. He denies chest pain. Qualifiers: Coronary Disease-Associated Artery/Lesion type: [place] artery [place] vs. transplanted heart: [place] heart Associated angina: angina presence unspecified Qualified Code(s): I25.10 - Atherosclerotic heart disease of [place] coronary artery without angina pectoris (4) Non-sustained ventricular tachycardia Current Visit: Yes Status: Acute Per cardiology: 25 beat run NSVT seen 01/28/18. On BB, unable to titrate further due to hypotension. Keep K >4, Mg > 2. No significant non-sustained runs. (5) LV (left ventricular) mural thrombus Current Visit: Yes Status: Acute Per cardiology: INR 1.6 today. Recommend continuing to bridge with heparin until INR therapeutic 2.0-3.0. INRs followed by PCP. Discussion w patient/family: The assessment and plan as outlined above was discussed with the patient who expressed understanding and agreement. All questions were answered. Thank you for involving us in the care of your patient. Please call with any questions. Discussed and reviewed with . Subjective Principal diagnosis: ICMP Interval history: Patient anxious for discharge home, States "I have things to do at home." Objective Vital Signs Temperature 97.4 F L 01/24/18 19:26 Pulse Rate 101 01/24/18 19:26 Respiratory Rate 20 01/24/18 19:26 Blood Pressure 134/84 01/24/18 19:26 O2 Sat by Pulse Oximetry 95 01/24/18 19:26 Temperature 98.5 F 02/02/18 06:48 Pulse Rate 80 02/02/18 06:48 Respiratory Rate 16 02/02/18 07:46 Blood Pressure 109/76 02/02/18 06:48 O2 Sat by Pulse Oximetry 99 02/02/18 07:46 Oxygen Delivery Oxygen Delivery Nasal Cannula General: Conversant, No Apparent Distress HEENT: Atraumatic, Normocephaly, Mucus Membranes Moist Neck: No JVD, Normal carotid pulses Cardiac: Reg Rate and Rhythm, Normal S1 and S2, No Murmur Lungs: Normal Breath Sounds, No Wheeze, Rales, Rhonchi Neuro: Alert and responsive, No focal deficits noted Abdomen: Soft, Non-Tender Skin: No rashes noted on visualized skin Musculoskeletal: Other (Left chest wall steri-strips intact. Mild bruising noted. ) Extremities: No Clubbing, No Cyanosis, Normal Pulses, Other (1+ bilateral lower extremity pitting edema to knees. ) Results 02/02/18 09:30 02/02/18 09:30 Lab Results Impressions Chest X-Ray 02/01/18 14:21 IMPRESSION: No acute process. Stable cardiomegaly D/ / Sj Barton MD / Sj Barton MD Interpreting Provider: Sj Barton MD Chest X-Ray 02/02/18 06:00 IMPRESSION: Pacemaker. Stable cardiomegaly. Atelectasis or infiltrates in the lung bases with bilateral pleural effusions. Follow up to resolution is suggested. D/ / 02/02/2018 10:27:40 Susan Betancourt MD / nury Interpreting Provider: Susan Betancourt MD Active Medications Acetazolamide (Diamox) 250 mg PO BID CHARMAINE PRN Reason: Protocol Stop: 08/04/18 11:46 Last Admin: 02/02/18 12:28 Dose: 250 mg Albuterol Sulfate (Albuterol Inhaler) 2 puff IH Q4HR PRN PRN Reason: Shortness Of Breath Stop: 07/27/18 00:32 Albuterol/Ipratropium (Duoneb) 3 ml IH [id number] CHARMAINE Stop: 08/04/18 12:01 Albuterol/Ipratropium (Duoneb) 3 ml IH [id number] PRN PRN Reason: Shortness Of Breath/Wheezing Stop: 08/04/18 11:35 Lipase/Protease/Amylase (Creon Dr 6,000 Units Capsule) 2 each PO BID CHARMAINE Stop: 07/27/18 09:01 Last Admin: 02/02/18 10:32 Dose: 2 each Cholestyramine Resin (Cholestyramine) 4 gm PO BIDAC CHARMAINE Stop: 07/27/18 07:31 Last Admin: 02/02/18 10:35 Dose: 4 gm Clopidogrel Bisulfate (Plavix) 75 mg PO DAILY CHARMAINE Stop: 07/27/18 09:01 Last Admin: 02/02/18 10:34 Dose: 75 mg Dextrose/Water (Dextrose 50% (Syg)) 25 ml IVP AD PRN PRN Reason: Hypoglycemia Stop: 07/27/18 11:19 Furosemide (Lasix) 40 mg IVP BIDDIURETIC [facility] Stop: 08/03/18 08:10 Last Admin: 02/02/18 10:42 Dose: 40 mg Glucagon (Glucagen) 1 mg IM ONCE PRN PRN Reason: Hypoglycemia Stop: 07/27/18 11:19 Glucose (Gluctose) 15 gm PO ONCE PRN PRN Reason: Hypoglycemia Stop: 07/27/18 11:19 Glucose (Gluctose) 30 gm PO ONCE PRN PRN Reason: Hypoglycemia Stop: 07/27/18 11:19 Heparin Sodium (Porcine) (Heparin) 8,400 unit 70 unit/kg (8400 unit) IVP Q6HR PRN PRN Reason: SEE COMMENTS Stop: 08/02/18 17:11 Heparin Sodium (Porcine) (Heparin) 4,200 unit 35 unit/kg (4200 unit) IVP Q6H PRN PRN Reason: SEE COMMENTS Stop: 08/02/18 17:11 Last Admin: 02/01/18 23:58 Dose: 4,200 unit Dextrose (Dextrose 5%) 1,000 mls @ 100 mls/hr IVC .Q10H PRN PRN Reason: HYPOGLYCEMIA Stop: 07/27/18 11:19 Heparin Sodium/Dextrose (Heparin 25,000 Unit/500 Ml D5w) 25,000 unit in 500 mls @ 33.432 mls/hr IVC .[id number] CHARMAINE; 14 UNIT/KG/HR PRN Reason: Protocol Stop: 08/02/18 17:16 Last Titration: 02/02/18 13:03 Dose: 13.01 unit/kg/hr, 31.068 mls/hr Insulin Human Lispro (Humalog) 0 units SQ HS [facility] PRN Reason: Protocol Stop: 07/27/18 21:01 Last Admin: 02/01/18 21:47 Dose: Not Given Insulin Human Lispro (Humalog) 0 units SQ TIDAC [facility] PRN Reason: Protocol Stop: 07/27/18 11:31 Last Admin: 02/02/18 12:28 Dose: 10 units Metolazone (Zaroxolyn) 5 mg PO DAILY [facility] Stop: 07/31/18 12:46 Last Admin: 02/02/18 10:42 Dose: 5 mg Metoprolol Succinate (Toprol Xl) 25 mg PO DAILY [facility] Stop: 07/27/18 09:01 Last Admin: 02/02/18 10:41 Dose: 25 mg Morphine Sulfate (Morphine Sulfate) 15 mg PO Q4HR PRN PRN Reason: Pain Stop: 07/27/18 00:32 Nystatin (Nystop) 1 appl TP BID [facility] Stop: 07/29/18 13:31 Last Admin: 02/02/18 10:38 Dose: 1 appl Perphenazine (Trilafon) 8 mg PO DAILY [facility] Stop: 07/27/18 09:01 Last Admin: 02/02/18 10:34 Dose: 8 mg Pharmacy Profile Note (Patient Taking Own Medication) 1 each PO DAILY [facility] Stop: 07/27/18 09:01 Last Admin: 02/02/18 10:32 Dose: Not Given Promethazine HCl (Phenergan) 25 mg PO BID [facility] Stop: 07/27/18 09:01 Last Admin: 02/02/18 10:41 Dose: 25 mg Tiotropium Sharon (Spiriva) 18 mcg IH DAILYR [facility] Stop: 07/27/18 10:01 Last Admin: 02/02/18 07:46 Dose: 18 mcg Warfarin Sodium (Coumadin Perpt) 1 each PO DAILY@1800 PRN PRN Reason: SEE COMMENTS Stop: 08/03/18 18:01 Warfarin Sodium (Coumadin) 10 mg PO 1800 ONE Stop: 02/02/18 18:01 Laboratory Tests 02/02/18 02/02/18 02/02/18 05:35 09:30 09:30 Hgb 12.9 INR 1.6 Creatinine 0.81 - Imaging and Cardiology Chest Xray: report reviewed Stress Test: report reviewed Echo: report reviewed - EKG Interpretation EKG results cardiology: other (Telemetry reviewed with average HR previous 12 hours noted to be 88, SR. PVCs, couplets noted. PACs noted.) - VTE Documentation of Mechanical Device: Graduated compression elastic hosiery Consult Discharge Plan - Plan Instructions: Meal Planning with Diabetes Exchanges (DC), Low Sodium Diet (DC) Referrals: Zackary Hale MD [Primary Care Provider] - 02/18/18 4:30 pm (office said this is the earliest appointment they had)
[2018-02-02] MEDS: Ipratropium/Albuterol Neb 3 ML IH SCH ×4 (15:40→23:17)
[2018-02-02] MEDS: Heparin 25,000 UNIT/500 ML D5W 25,000 UNIT/500 ML BAG IVC SCH ×2 (16:29)
[2018-02-02] MEDS ORDERED: Furosemide 40 MG/4 ML VIAL IVP SCH (17:26)
[2018-02-02] MEDS ORDERED: *HR* Warfarin 10 MG TABLET PO ONE (18:00)
[2018-02-03 03:15] LABS: Basophils # 0.1 K/mcL (0.0-0.2); Basophils % 0.7 %; Eosinophils # 0.5 K/mcL (0.0-0.6); Hematocrit 41.7 % (37.5-50.1); Hemoglobin 13.4 g/dL (12.9-16.9); Immature Granulocytes % 0.2 % (0-4); Lymphocytes % 11.3 %; Mean Corpuscular HGB Conc 32.1 g/dL (31.6-35.5); Mean Corpuscular Hemoglobin 29.7 pg (28.0-33.3); Mean Corpuscular Volume 92.5 fL (83.0-100.0); Mean Platelet Volume 10.7 fL (9.4-12.4); Monocytes # 1.2 K/mcL (0.0-1.3); Monocytes % 13.5 %; Neutrophils # 6.3 K/mcL (1.6-8.9); Platelet Count 171 K/mcL (140-400); Red Blood Count 4.51 M/mcL (4.19-5.50); Red Cell Distribution Width 14.4 % (11.5-14.5); Segmented Neutrophils % 69.3 %
[2018-02-03 03:24] LABS: INR 1.7; Prothrombin Time 19.3 Seconds (9.4-12.1)
[2018-02-03 03:31] LABS: BUN/Creatinine Ratio 21 (6-26); Blood Urea Nitrogen 18 mg/dL (8-23); Carbon Dioxide 38 mEq/L (23-29); Chloride 84 mEq/L (98-107); Glucose 220 mg/dL (70-105); Osmolality,Calculated 281 (280-300); Potassium 3.6 mEq/L (3.5-5.1); Sodium 131 mEq/L (136-145); eGFR For African Americans > 60 (> 60); eGFR For Non-African Americans > 60 (> 60)
[2018-02-03] MEDS: Ipratropium/Albuterol Neb 3 ML IH SCH ×6 (03:34→23:43)
--- NOTE | 2018-02-03 08:59 | Discharge Summary ---
<Nancy Benton N - Last Filed: 02/04/18 16:13> - NOTES TO OUTPATIENT PROVIDER Notes to Outpatient Provider: Patient presented to the ED with increasing SOB and worsening lower extremity edema and was admitted for a CHF exacerbation. He was diuresed with lasix and metalazone. He developed contraction alkalosis during this admission, which has been addressed, with marked improvement in CO2 levels prior to discharge. Mr. Emmanuel agreed to AICD placement for chronic arrhythmias, which he had previously declined. He developed a hematoma under the AICD on post-op day 1, which was monitored for 24 hours prior to discharge. Patient had acute urinary rentention, initially requiring straight catheterization; however, he required boo catheter placement prior to discharge. MARGARET was not performed due to the patient being on anticoagulants. Started tamsulosin 0.4mg PO daily. Patient was discharged with boo catheter in place and instructed to follow up with urology. Orders not resulted at time of discharge: Pending orders 01/29/18 07:00 NM guy perf SPECT multi [NM] Routine 02/01/18 12:17 CL Insert ICD [CL] Routine 02/03/18 08:14 Hemoglobin and Hematocrit [HEME] Routine PTT [Activated Partial Thrombo Time] [COAG] Routine 02/03/18 11:40 Heparin anti-factor XA UFH [COAG] Timed 02/04/18 04:00 PT/INR [Prothrombin Time INR] [COAG] AM 0400 Date of Encounter: 02/04/18 Time of Encounter: 08:59 - Discharge Diagnosis (1) COPD (chronic obstructive pulmonary disease) Priority: Secondary Status: Chronic 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 - Other emphysema (2) Diabetes Priority: Secondary Status: Chronic Qualifiers: Diabetes mellitus type: type 2 Diabetes mellitus intermediate frame tender insulin use: without intermediate frame tender use Diabetes mellitus complication status: without complication Qualified Code(s): E11.9 - Type 2 diabetes mellitus without complications (3) HTN (hypertension) Priority: Secondary Status: Chronic Qualifiers: Hypertension type: essential hypertension Qualified Code(s): I10 - Essential (primary) hypertension (4) DVT prophylaxis Priority: Secondary Status: Acute (5) CAD (coronary artery disease) Priority: Secondary Status: Chronic Qualifiers: Coronary Disease-Associated Artery/Lesion type: [place] artery [place] vs. transplanted heart: [place] heart Associated angina: angina presence unspecified Qualified Code(s): I25.10 - Atherosclerotic heart disease of [place] coronary artery without angina pectoris (6) Acute exacerbation of congestive heart failure Priority: Primary Status: Acute Qualifiers: Heart failure type: systolic Qualified Code(s): I50.23 - Acute on chronic systolic (congestive) heart failure (7) Metabolic alkalosis Priority: Secondary Status: Suspected Hospital course: Mr. Emmanuel is a 62 year old male who presented to the ED with increasing SOB and worsening lower extremity edema. He was admitted for a CHF exacerbation and received diuresis with lasix and metalazone. He developed contraction alkalosis during this admission, which has been addressed, with marked improvement in CO2 levels prior to discharge. Mr. Emmanuel agreed to AICD placement for chronic arrhythmias, which he had previously declined. He developed a hematoma under the AICD on post-op day 1, which was monitored for 24 hours prior to discharge. Patient had acute urinary rentention, initially requiring straight catheterization; however, he required boo catheter placement prior to discharge. MARGARET was not performed due to the patient being on anticoagulants. Started tamsulosin 0.4mg PO daily. Patient was discharged with boo catheter in place and instructed to follow up with urology. - Time Spent with Patient Total time spent providing and/or coordinating discharge services: - Discharge Medications Prescriptions: acetaZOLAMIDE [Diamox] 250 mg PO BID #3 tablet Furosemide [Lasix] 40 mg PO DAILY #30 tablet Tamsulosin [Flomax] 0.4 mg PO DAILY #30 capsule Home Medications: Albuterol Sulfate [Albuterol Inhaler] 2 puff IH Q4HR PRN 05/17/15 [History] Ezetimibe [Zetia] 10 mg PO DAILY 05/17/15 [History] Metformin HCl [Glucophage] 1,000 mg PO BID 05/17/15 [History] Tiotropium [Spiriva] 18 mcg IH DAILY 05/17/15 [History] Clopidogrel [Plavix] 75 mg PO DAILY 10/27/17 [History] Lisinopril [Zestril] 2.5 mg PO DAILY 10/27/17 [History] Metoprolol Succinate [Toprol Xl] 25 mg PO DAILY 10/27/17 [History] Glimepiride [Amaryl] 2 mg PO 0800 15 Days #15 tablet 11/02/17 [Rx] Lipase/Protease/Amylase [Omid Chakraborty 12,000 Units Capsule] 1 cap PO BID 11/10/17 [ History] Promethazine [Phenergan] 25 mg PO BID 11/10/17 [History] Morphine Immed Rel [Morphine Sulfate] 15 mg PO Q4HR PRN 3 Days #10 tab 11/13/17 [Rx] Cholestyramine 4 g PO BID 01/24/18 [History] Perphenazine [Trilafon] 8 mg PO DAILY 01/24/18 [History] Warfarin Sodium 9 mg PO DAILY 01/24/18 [History] Furosemide [Lasix] 40 mg PO DAILY #30 tablet 02/04/18 [Rx] Tamsulosin [Flomax] 0.4 mg PO DAILY #30 capsule 02/04/18 [Rx] acetaZOLAMIDE [Diamox] 250 mg PO BID #3 tablet 02/04/18 [Rx] Allergies/Adverse Reactions: 3 Allergy/AdvReac Type Severity Reaction Status Date / Time loxapine [From Loxitane] Allergy See Verified 01/24/18 19:21 Comments betamethasone AdvReac Hives Verified 01/24/18 19:21 [From Lotrisone] clotrimazole [From Lotrisone] AdvReac Hives Verified 01/24/18 19:21 Sulfa (Sulfonamide AdvReac Hives Verified 01/24/18 19:21 Antibiotics) Date of admission: 01/25/18 19:16 Primary care physician: Zackary Hale MD Consults: 01/26/18 17:56 Consult to Cardiology [CONS] Routine Comment: Consulting Provider: Cardiology Silvia Reason for Consult: CHF exacerbation Call Completed: Yes 01/27/18 10:08 Consult to Occupational Therapy [CONS] Routine Comment: Evaluate, develop and implement POC Reason for Consult: weakness Does patient have active BEDREST order?: No Is patient medically & hemodynamically stable?: Yes Patient assessed for mobility or mobilized this visit?: Yes Consult to Physical Therapy [CONS] Routine Comment: Evaluate, develop and implement POC Reason for Consult: weakness Does patient have active BEDREST order?: No Is patient medically & hemodynamically stable?: Yes Patient assessed for mobility or mobilized this visit?: Yes 01/28/18 09:41 Consult to Palliative Care [CONS] Routine Comment: Consulting Provider: Palliative Care Silvia Reason for Consult: Goals of care Call Completed: No 02/01/18 11:36 Consult to Electrophysiology (EP) [CONS] Routine Consulting Provider: Electrophysiology Silvia Reason for Consult: Acute CHF exacerbation and ICD placement Call Completed: Yes Discharging clinician: Nancy Benton Anticipated date of discharge: 02/04/18 - Constitutional Vitals: Temp Pulse Resp BP Pulse Ox 98.9 F 92 18 103/63 94 02/03/18 07:16 02/03/18 07:16 02/03/18 07:28 02/03/18 07:16 02/03/18 07:28 General appearance: Present: cooperative, A&O X 3, morbidly obese, pleasant, no acute distress, answers questions appropriately - Head Head exam: Present: atraumatic, normal inspection, normocephalic - Respiratory Respiratory exam: Present: CTAB. Absent: accessory muscle use, rales, respiratory distress, rhonchi, wheezes - Cardiovascular Cardiovascular exam: Present: RRR, +S1, +S2. Absent: diastolic murmur, gallop, rubs, systolic murmur - Extremities Exam Extremities exam: Present: pedal edema (Minimal bilateral LE edema), warm, radial pulses palpable and symmetrical. Absent: calf tenderness, cyanotic - Patient Status Disposition: Home, Self-Care Condition: Fair Functional capacity at discharge: independent ambulation Overall status at discharge: patient is progressing back to baseline - Discharge Instructions Instructions: Meal Planning with Diabetes Exchanges (DC), Low Sodium Diet (DC) Follow Up With: Pee Frank MD [Partnered Physician] - 02/22/18 1:15 pm Zackary Hale MD [Primary Care Provider] - 02/18/18 4:30 pm (office said this is the earliest appointment they had) Sammi Childs CNP [Advanced Practice Nurse] - (office will call patient at home with appointment date and time) Additional Instructions: Continue home medications. You have three new prescriptions: 1. Diamox (acetazolamide) 250mg - take one daily for three days 2. Lasix (furosemide) 40mg - take one tablet daily 3. Flomax (tamsulosin) 0.4mg - take one tablet daily Have PT/INR evaluated February 07. Follow up with your family doctor in 3-5 days. Discuss request for recliner at home with PCP, as they are the best person to set that in place for you. You are being discharged with your boo catheter in place due to urine retention. Follow up with urology as scheduled for further evaluation and possible removal of catheter. Begin taking tamsulosin for suspected BPH. Follow up with cardiology as scheduled for further management of AICD and cardiac problems. Use home oxygen as needed for shortness of breath. Return to the emergency department if you have fever, chills, or other signs of infections. Return if symptoms recur or if new concerns arise. 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 - Other emphysema (2) Diabetes Status: Chronic Qualifiers: Diabetes mellitus type: type 2 Diabetes mellitus intermediate frame tender insulin use: without intermediate frame tender use Diabetes mellitus complication status: without complication Qualified Code(s): E11.9 - Type 2 diabetes mellitus without complications (3) HTN (hypertension) Status: Chronic Qualifiers: Hypertension type: essential hypertension Qualified Code(s): I10 - Essential (primary) hypertension (4) DVT prophylaxis Status: Acute (5) CAD (coronary artery disease) Status: Chronic Qualifiers: Coronary Disease-Associated Artery/Lesion type: [place] artery [place] vs. transplanted heart: [place] heart Associated angina: angina presence unspecified Qualified Code(s): I25.10 - Atherosclerotic heart disease of [place] coronary artery without angina pectoris (6) Acute exacerbation of congestive heart failure Status: Acute Qualifiers: Heart failure type: systolic Qualified Code(s): I50.23 - Acute on chronic systolic (congestive) heart failure (7) Metabolic alkalosis Status: Suspected Hospital course: Mr. Emmanuel is a 62 year old male - Time Spent with Patient Total time spent providing and/or coordinating discharge services: Date of admission: 01/25/18 19:16 Primary care physician: Zackary Hale MD Consults: 01/26/18 17:56 Consult to Cardiology [CONS] Routine Comment: Consulting Provider: Cardiology Silvia Reason for Consult: CHF exacerbation Call Completed: Yes 01/27/18 10:08 Consult to Occupational Therapy [CONS] Routine Comment: Evaluate, develop and implement POC Reason for Consult: weakness Does patient have active BEDREST order?: No Is patient medically & hemodynamically stable?: Yes Patient assessed for mobility or mobilized this visit?: Yes Consult to Physical Therapy [CONS] Routine Comment: Evaluate, develop and implement POC Reason for Consult: weakness Does patient have active BEDREST order?: No Is patient medically & hemodynamically stable?: Yes Patient assessed for mobility or mobilized this visit?: Yes 01/28/18 09:41 Consult to Palliative Care [CONS] Routine Comment: Consulting Provider: Palliative Care Silvia Reason for Consult: Goals of care Call Completed: No 02/01/18 11:36 Consult to Electrophysiology (EP) [CONS] Routine Consulting Provider: Electrophysiology Silvia Reason for Consult: Acute CHF exacerbation and ICD placement Call Completed: Yes 02/03/18 09:50 Consult to Cardiology [CONS] Routine Comment: Consulting Provider: Cardiology Silvia Reason for Consult: Hematoma at site of AICD placement Time Notified: 09:51 Call Completed: Yes - Constitutional Vitals: Temp Pulse Resp BP Pulse Ox 97.8 F 82 18 94/62 95 02/04/18 11:51 02/04/18 11:51 02/04/18 15:50 02/04/18 11:51 02/04/18 15:50 - Attending Attestation I examined this patient and my medical decision-making was reviewed with the Resident Physician Dr. Benton. I agree with the documented findings, disposition and treatment plan as described except to the extent set forth below. Mr. Emmanuel is a 62 y/o M with known PMH of ischemic cardiomyopathy with LVEF ~15-20%, LV thrombus on Coumadin, CAD s/p PCI, COPD, HTN, and DMII who presented to the ED with complaints of worsening shortness of breath, lower extremity edema, and increase in abdominal girth that has been ongoing for the past 2 months. Pt was started on aggressive IV diuresis with Lasix 40 BID + Metolazone. He was started on heparin gtt and did placed AICD on 02/01/18. Today pt denied any CP. Still has some SOB and MEYER. Currently on 3 lit O2. His hematoma / swelling around the AICD site improved today Gen: A, A< O x 3 Chest: Diminished BS b/l , mild crackles. , rales + Heart: S1S2+ RRR, no murmurs Abd: Soft Ext: 2+ pitting edema A/P 1. Acute on chronic systolic CHF exacerbation cont diuresis 2. Acute on chronic hypoxic resp failure due to CHF eacerbation cont diuresis cont close monitoring 3. Metabolic alkalosis mostly due to aggressive diuresis improving cut back on lasix and dc metolazone Cont on Acetazolamide for 3 more days 4. Left atrial thrombi On Coumadin.INR 2.0 today 5. Acute hematoma over Left chest wall Improved stable Hb Medically stable to d/c home today
[2018-02-03] MEDS: Cholestyramine 4 GM POWD.PACK PO SCH ×2 (09:27→16:11)
[2018-02-03] MEDS: Metoprolol XL (24 HR) Succ 25 MG TAB.ER.24H PO SCH (09:28)
[2018-02-03] MEDS: Insulin LISPRO 300 UNITS/3 ML VIAL SQ SCH ×4 (09:28→22:10)
[2018-02-03] MEDS: acetaZOLAMIDE 250 MG TABLET PO SCH ×2 (09:28→21:55)
[2018-02-03] MEDS: Perphenazine 8 MG TABLET PO SCH (09:28)
[2018-02-03] MEDS: Nystatin POWDER 30 GM BOTTLE TP SCH ×2 (09:29→21:56)
[2018-02-03 09:46] LABS: Hematocrit 42.1 % (37.5-50.1); Hemoglobin 13.5 g/dL (12.9-16.9)
--- NOTE | 2018-02-03 11:27 | Event Note ---
Date of Encounter: 02/03/18 Time of Encounter: 11:20 - Cardiology Event Note Laboratory Tests 02/03/18 02/03/18 03:03 03:03 Hgb 13.4 Hct 41.7 INR 1.7 Active Medications Acetazolamide (Diamox) 250 mg PO BID CHARMAINE PRN Reason: Protocol Stop: 08/04/18 11:46 Last Admin: 02/03/18 09:28 Dose: 250 mg Albuterol Sulfate (Albuterol Inhaler) 2 puff IH Q4HR PRN PRN Reason: Shortness Of Breath Stop: 07/27/18 00:32 Albuterol/Ipratropium (Duoneb) 3 ml IH [id number] CHARMAINE Stop: 08/04/18 12:01 Last Admin: 02/03/18 11:10 Dose: 3 ml Albuterol/Ipratropium (Duoneb) 3 ml IH [id number] PRN PRN Reason: Shortness Of Breath/Wheezing Stop: 08/04/18 11:35 Lipase/Protease/Amylase (Creon Dr 6,000 Units Capsule) 2 each PO BID CHARMAINE Stop: 07/27/18 09:01 Last Admin: 02/03/18 09:29 Dose: 2 each Cholestyramine Resin (Cholestyramine) 4 gm PO BIDAC CHARMAINE Stop: 07/27/18 07:31 Last Admin: 02/03/18 09:27 Dose: 4 gm Clopidogrel Bisulfate (Plavix) 75 mg PO DAILY CHARMAINE Stop: 07/27/18 09:01 Last Admin: 02/03/18 09:27 Dose: 75 mg Dextrose/Water (Dextrose 50% (Syg)) 25 ml IVP AD PRN PRN Reason: Hypoglycemia Stop: 07/27/18 11:19 Furosemide (Lasix) 20 mg IVP BIDDIURETIC CHARMAINE Stop: 08/04/18 17:27 Last Admin: 02/03/18 09:27 Dose: 20 mg Glucagon (Glucagen) 1 mg IM ONCE PRN PRN Reason: Hypoglycemia Stop: 07/27/18 11:19 Glucose (Gluctose) 15 gm PO ONCE PRN PRN Reason: Hypoglycemia Stop: 07/27/18 11:19 Glucose (Gluctose) 30 gm PO ONCE PRN PRN Reason: Hypoglycemia Stop: 07/27/18 11:19 Heparin Sodium (Porcine) (Heparin) 8,400 unit 70 unit/kg (8400 unit) IVP Q6HR PRN PRN Reason: SEE COMMENTS Stop: 08/02/18 17:11 Heparin Sodium (Porcine) (Heparin) 4,200 unit 35 unit/kg (4200 unit) IVP Q6H PRN PRN Reason: SEE COMMENTS Stop: 08/02/18 17:11 Last Admin: 02/01/18 23:58 Dose: 4,200 unit Dextrose (Dextrose 5%) 1,000 mls @ 100 mls/hr IVC .Q10H PRN PRN Reason: HYPOGLYCEMIA Stop: 07/27/18 11:19 Heparin Sodium/Dextrose (Heparin 25,000 Unit/500 Ml D5w) 25,000 unit in 500 mls @ 33.432 mls/hr IVC .[id number] CHARMAINE; 14 UNIT/KG/HR PRN Reason: Protocol Stop: 08/02/18 17:16 Last Titration: 02/03/18 02:44 Dose: 0 unit/kg/hr, 0 mls/hr Insulin Human Lispro (Humalog) 0 units SQ HS CHARMAINE PRN Reason: Protocol Stop: 07/27/18 21:01 Last Admin: 02/02/18 21:42 Dose: 3 units Insulin Human Lispro (Humalog) 0 units SQ TIDAC CHARMAINE PRN Reason: Protocol Stop: 07/27/18 11:31 Last Admin: 02/03/18 09:28 Dose: 2 units Metoprolol Succinate (Toprol Xl) 25 mg PO DAILY [facility] Stop: 07/27/18 09:01 Last Admin: 02/03/18 09:28 Dose: 25 mg Nystatin (Nystop) 1 appl TP BID [facility] Stop: 07/29/18 13:31 Last Admin: 02/03/18 09:29 Dose: 1 appl Perphenazine (Trilafon) 8 mg PO DAILY [facility] Stop: 07/27/18 09:01 Last Admin: 02/03/18 09:28 Dose: 8 mg Pharmacy Profile Note (Patient Taking Own Medication) 1 each PO DAILY [facility] Stop: 07/27/18 09:01 Last Admin: 02/03/18 09:29 Dose: Not Given Promethazine HCl (Phenergan) 25 mg PO BID [facility] Stop: 07/27/18 09:01 Last Admin: 02/03/18 09:28 Dose: 25 mg Warfarin Sodium (Coumadin Perpt) 1 each PO DAILY@1800 PRN PRN Reason: SEE COMMENTS Stop: 08/03/18 18:01 Asked by primary service to evaluate ICD hematoma. Patient noted to have small- moderate hematoma above ICD site, no bleeding, no ecchymosis, slightly tender. Patient noted to be on Plavix-- had History of NSTEMI 03/2017--s/p high-risk PCI to LAD, PTCA diagonal at [facility]-- cannot discontinue. Off asa. Additionally, on IV heparin drip for bridging for LV thrombus on echo and on Coumadin with current H&H stable. Additionally, see previous recommendations regarding INR and IV bridging -- recs. to continue IV heparin drip if INR less than 1.8, today is 1.7. Recommendation to monitor today/overnight and continue IV heparin drip until INR therapeutic. Suspect hematoma will improve over time. Please re-consult if any worsening of site. Discussed and reviewed with Dr. Zackary Alejandro.
--- NOTE | 2018-02-03 11:50 | Internal Med Progress Note ---
<Nancy Benton N - Last Filed: 02/03/18 15:21> Date of Encounter: 02/03/18 Time of Encounter: 11:49 - Assessment and plan (1) Acute exacerbation of congestive heart failure Current Visit: Yes Status: Acute Assessment and plan: Diuresis with lasix and acetazolamide. Patient denies symptoms. He does have 1+ pitting edema in bilateral lower extremities. Plan to continue diuresis. 02/03 - Patient's lower extremity edema is improved today. Plan to continue diuesis with lasix and acetazolamide, with discontinuation of metolazone. Patient denies any cardiac symptoms. Due to the overnight development of a moderate hematoma at the site of AICD placement, will consider echocardiogram tomorrow if that area worsens. Expect that he will likely be discharged tomorrow. Qualifiers: Heart failure type: systolic Qualified Code(s): I50.23 - Acute on chronic systolic (congestive) heart failure (2) Metabolic alkalosis Current Visit: Yes Status: Suspected Assessment and plan: Patient has contraction alkalosis due to lasix diuresis. CO2 remains elevated. Decreased lasix to 20mg IVP BID and discontinued metalozone. Added acetazolamide 250mg BID to his medication regimen. Plan to continue monitoring of labs with cautious diuresis. 02/03 - Patient had improvement in CO2 overnight with the addition of acetazolamide. Plan to continue that medication today, with discontinuation tomorrow if labs continue to improve. (3) COPD (chronic obstructive pulmonary disease) Current Visit: No Status: Chronic Assessment and plan: Chronic and controlled on home medications. Patient does not appear to be having a COPD exacerbation. 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 - Other emphysema (4) Diabetes Current Visit: No Status: Chronic Assessment and plan: Continue accuchecks and sliding scale insulin per protocol. Patient should maintain a cardiac/diabetic diet Qualifiers: Diabetes mellitus type: type 2 Diabetes mellitus vp compliance insulin use: without vp compliance use Diabetes mellitus complication status: without complication Qualified Code(s): E11.9 - Type 2 diabetes mellitus without complications (5) HTN (hypertension) Current Visit: No Status: Chronic Assessment and plan: Blood pressure is within normal limits. Plan to continue home regimen. Qualifiers: Hypertension type: essential hypertension Qualified Code(s): I10 - Essential (primary) hypertension (6) CAD (coronary artery disease) Current Visit: No Status: Chronic Assessment and plan: Stable. Continue home medication regimen. Qualifiers: Coronary Disease-Associated Artery/Lesion type: [place] artery [place] vs. transplanted heart: [place] heart Associated angina: angina presence unspecified Qualified Code(s): I25.10 - Atherosclerotic heart disease of [place] coronary artery without angina pectoris (7) DVT prophylaxis Current Visit: No Status: Acute Assessment and plan: Patient is anticoagulated with heparin and coumadin. We will continue those medications and stop the patient's heparin drip per cardiology recommendation. (8) Hematoma Current Visit: Yes Status: Acute Assessment and plan: Cardiology was consulted regarding this problem. Following their evaluation, they expressed that they would like to discontinue the patient's heparin drip, with continuation of the patient's current plavix and coumadin regimen. As they expect the hematoma to resolve with time, they signed off on the patient and recommended discharge tomorrow as long as patient continued to improve. Appreciate cardiology assistance with management of this problem. - Time Spent With Patient Total time spent is greater than 50% in coordination of care (as documented) at patient's floor/unit and/or counseling patient: - Subjective Interval history: Mr. Emmanuel was admitted to the hospital with a CHF exacerbation. He received aggressive diuresis with lasix. He developed contracture alkalosis, which required slower diuresis. He is currently 1 day s/p AICD placement. He voices that he would like to go home. He denies any fevers, shortness of breath, chest pain, or arrhythmia. 02/03 - Patient developed a hematoma under his AICD overnight. Nursing staff marked the borders of the hematoma. On exam this morning, the hematoma does not appear to have expanded outside the previous marked border. Patient reports some tenderness in that area to light touch, but denies any chest pain, arrhythmia, or shortness of breath. He expresses that he would like to go home today. He states that he qualifies for a recliner to have at home so he can sit with his feet up, and states that it should be covered via Medicare. He would like to have this set up for him prior to discharge. - Constitutional Vitals: Temp Pulse Resp BP Pulse Ox 98.9 F 92 16 103/63 93 02/03/18 07:16 02/03/18 07:16 02/03/18 11:10 02/03/18 07:16 02/03/18 11:10 Exam: Patient is alert and sitting in the chair at the bedside in no acute distress. He responds appropriately to questions. - Head Additional comments: Atraumatic and normocephalic. - Respiratory Additional comments: Decreased breath sounds bilaterally. - Cardiovascular Additional comments: Regular rate and rhythm. No gallops, murmurs, or rubs. Hematoma present under AICD, which was placed on Wednesday. It appears to be within the original border that was marked upon discovery. - Extremities Exam Additional comments: Improved lower extremity edema. Compression wraps are present on bilateral legs. Internal Medicine: Result - Labs CBC & Chem 7: 02/03/18 09:34 02/03/18 03:03 Labs: Short CBC 02/03/18 02/03/18 Range/Units 03:03 09:34 WBC 9.1 (4.3-11.1) K/mcL Hgb 13.4 13.5 (12.9-16.9) g/dL Hct 41.7 42.1 (37.5-50.1) % Plt Count 171 (140-400) K/mcL Neutrophils # 6.3 (1.6-8.9) K/mcL BMP 02/03/18 03:03 Sodium 131 L Potassium 3.6 Chloride 84 L Carbon Dioxide 38 H BUN 18 Creatinine 0.86 Glucose 220 H Calcium 10.0 - ABG Interpretation ABG results: PT/INR, D-dimer PT 19.3 Seconds (9.4-12.1) H 02/03/18 03:03 D-Dimer 1021 ng/mLFEU (0-500) H 01/24/18 19:36 - Impressions Impressions Chest X-Ray 02/03/18 02:49 IMPRESSION: Improving bibasilar airspace disease. Otherwise no change. D/ / Hola Bello MD / Hola Bello MD Interpreting Provider: Hola Bello MD - VTE Documentation of Mechanical Device: Graduated compression elastic hosiery Consult Discharge Plan - Plan Instructions: Meal Planning with Diabetes Exchanges (DC), Low Sodium Diet (DC) Referrals: Zackary fonseca MD [Primary Care Provider] - 02/18/18 4:30 pm (office said this is the earliest appointment they had) <Elmira Maldonado - Last Filed: 02/03/18 17:38> Date of Encounter: 02/03/18 - Assessment and plan (1) COPD (chronic obstructive pulmonary disease) Current Visit: No Status: Chronic 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 - Other emphysema (2) Diabetes Current Visit: No Status: Chronic Qualifiers: Diabetes mellitus type: type 2 Diabetes mellitus vp compliance insulin use: without skilled nursing use Diabetes mellitus complication status: without complication Qualified Code(s): E11.9 - Type 2 diabetes mellitus without complications (3) HTN (hypertension) Current Visit: No Status: Chronic Qualifiers: Hypertension type: essential hypertension Qualified Code(s): I10 - Essential (primary) hypertension (4) DVT prophylaxis Current Visit: No Status: Acute (5) CAD (coronary artery disease) Current Visit: No Status: Chronic Qualifiers: Coronary Disease-Associated Artery/Lesion type: [place] artery [place] vs. transplanted heart: [place] heart Associated angina: angina presence unspecified Qualified Code(s): I25.10 - Atherosclerotic heart disease of [place] coronary artery without angina pectoris (6) Acute exacerbation of congestive heart failure Current Visit: Yes Status: Acute Qualifiers: Heart failure type: systolic Qualified Code(s): I50.23 - Acute on chronic systolic (congestive) heart failure (7) Metabolic alkalosis Current Visit: Yes Status: Suspected (8) Hematoma Current Visit: Yes Status: Acute - Time Spent With Patient Total time spent is greater than 50% in coordination of care (as documented) at patient's floor/unit and/or counseling patient: - Constitutional Vitals: Temp Pulse Resp BP Pulse Ox 97.4 F L 68 16 108/84 100 02/03/18 16:22 02/03/18 16:22 02/03/18 16:22 02/03/18 16:22 02/03/18 16:22 Internal Medicine: Result - Labs CBC & Chem 7: 02/03/18 09:34 02/03/18 03:03 Labs: Short CBC 02/03/18 02/03/18 Range/Units 03:03 09:34 WBC 9.1 (4.3-11.1) K/mcL Hgb 13.4 13.5 (12.9-16.9) g/dL Hct 41.7 42.1 (37.5-50.1) % Plt Count 171 (140-400) K/mcL Neutrophils # 6.3 (1.6-8.9) K/mcL BMP 02/03/18 03:03 Sodium 131 L Potassium 3.6 Chloride 84 L Carbon Dioxide 38 H BUN 18 Creatinine 0.86 Glucose 220 H Calcium 10.0 - ABG Interpretation ABG results: PT/INR, D-dimer PT 19.3 Seconds (9.4-12.1) H 02/03/18 03:03 D-Dimer 1021 ng/mLFEU (0-500) H 01/24/18 19:36 - Impressions Impressions Chest X-Ray 02/03/18 02:49 IMPRESSION: Improving bibasilar airspace disease. Otherwise no change. D/ / Hola Bello MD / Hola Bello MD Interpreting Provider: Hola Bello MD - Attending Attestation I examined this patient and my medical decision-making was reviewed with the Resident Physician Dr. Benton. I agree with the documented findings, disposition and treatment plan as described except to the extent set forth below. Mr. Emmanuel is a 62 y/o M with known PMH of ischemic cardiomyopathy with LVEF ~15-20%, LV thrombus on Coumadin, CAD s/p PCI, COPD, HTN, and DMII who presented to the ED with complaints of worsening shortness of breath, lower extremity edema, and increase in abdominal girth that has been ongoing for the past 2 months. Pt was started on aggressive IV diuresis with Lasix 40 BID + Metolazone. He was started on heparin gtt and did placed AICD on 02/01/18. Today pt denied any CP. Still has some SOB and MEYER. Currently on 3 lit O2. He did develop small hemaotma around the AICD site. Gen: A, A< O x 3 Chest: Diminished BS b/l , mild crackles. , rales + Heart: S1S2+ RRR, no murmurs Abd: Soft Ext: 2+ pitting edema A/P 1. Acute on chronic systolic CHF exacerbation cont diuresis 2. Acute on chronic hypoxic resp failure due to CHF eacerbation cont diuresis cont close monitoring may need home O2 eval.. he does have 2 lit O2 as needed at bed time only 3. Metabolic alkalosis mostly due to aggressive diuresis improving cut back on lasix and dc metolazone Cont on Acetazolamide 4. Left atrial thrombi On Coumadin 5. Acute hematoma over Left chest wall will defer to cardiology regarding further care
--- NOTE | 2018-02-03 12:18 | Event Note ---
Date of Encounter: 02/03/18 Time of Encounter: 12:15 - Cardiology Event Note Clarification: discussed again with Dr. Zackary Alejandro, he did not wish to proceed with Hep. gtt bridging. Rec stopping now-- will stop. Ok to proceed with DC to home-- has appt in [facility] for wound check.
[2018-02-03] MEDS: Furosemide 40 MG TABLET PO SCH (16:10)
[2018-02-03] MEDS ORDERED: *HR* Warfarin 10 MG TABLET PO ONE (18:00)
[2018-02-04] MEDS: Ipratropium/Albuterol Neb 3 ML IH SCH ×4 (03:34→15:50)
[2018-02-04 04:28] LABS: Basophils % 0.5 %; Eosinophils # 0.5 K/mcL (0.0-0.6); Hematocrit 41.2 % (37.5-50.1); Hemoglobin 13.2 g/dL (12.9-16.9); Immature Granulocytes % 0.4 % (0-4); Lymphocytes # 1.2 K/mcL (0.6-4.6); Lymphocytes % 13.6 %; Mean Corpuscular Hemoglobin 29.5 pg (28.0-33.3); Mean Corpuscular Volume 92.2 fL (83.0-100.0); Mean Platelet Volume 10.7 fL (9.4-12.4); Monocytes # 1.2 K/mcL (0.0-1.3); Neutrophils # 5.5 K/mcL (1.6-8.9); Platelet Count 161 K/mcL (140-400); Prothrombin Time 22.7 Seconds (9.4-12.1); Red Blood Count 4.47 M/mcL (4.19-5.50); Red Cell Distribution Width 14.4 % (11.5-14.5); Segmented Neutrophils % 65.5 %
[2018-02-04 04:36] LABS: BUN/Creatinine Ratio 27 (6-26); Blood Urea Nitrogen 20 mg/dL (8-23); Calcium 9.7 mg/dL (8.6-10.3); Carbon Dioxide 33 mEq/L (23-29); Chloride 92 mEq/L (98-107); Glucose 184 mg/dL (70-105); Osmolality,Calculated 283 (280-300); Potassium 3.3 mEq/L (3.5-5.1); Sodium 133 mEq/L (136-145); eGFR For African Americans > 60 (> 60); eGFR For Non-African Americans > 60 (> 60)
[2018-02-04] MEDS: Insulin LISPRO 300 UNITS/3 ML VIAL SQ SCH ×2 (08:40→12:31)
[2018-02-04] MEDS: Metoprolol XL (24 HR) Succ 25 MG TAB.ER.24H PO SCH (08:40)
[2018-02-04] MEDS: acetaZOLAMIDE 250 MG TABLET PO SCH (08:40)
[2018-02-04] MEDS: Cholestyramine 4 GM POWD.PACK PO SCH (08:40)
[2018-02-04] MEDS: Perphenazine 8 MG TABLET PO SCH (08:40)
[2018-02-04] MEDS: Furosemide 40 MG TABLET PO SCH (08:40)
[2018-02-04] MEDS: Nystatin POWDER 30 GM BOTTLE TP SCH (08:41)
[2018-02-04 11:52] VITALS: BP 94/62
--- NOTE | 2018-02-04 14:08 | Physician Discharge Referral ---
Home Health/Hosp Referral Info Transfer to: Home Health Provider in Charge Post Discharge: PCP - Diagnosis (1) COPD (chronic obstructive pulmonary disease) Priority: Secondary Status: Chronic (2) Diabetes Priority: Secondary Status: Chronic (3) HTN (hypertension) Priority: Secondary Status: Chronic (4) DVT prophylaxis Priority: Secondary Status: Acute (5) CAD (coronary artery disease) Priority: Secondary Status: Chronic (6) Acute exacerbation of congestive heart failure Priority: Primary Status: Acute (7) Metabolic alkalosis Priority: Secondary Status: Suspected - Respiratory Orders Oxygen / L per min Smoking Cessation: Smoking cessation has been advised. For more information, call the [place] Tobacco Quit Line at 9-484-KKBP-NOW. - Services Needed Following services are medically necessary services: Nursing, Home Health Aide, Physical Therapy, Occupational Therapy - Transfer Medications Prescriptions: acetaZOLAMIDE [Diamox] 250 mg PO BID #3 tablet Furosemide [Lasix] 40 mg PO DAILY #30 tablet Tamsulosin [Flomax] 0.4 mg PO DAILY #30 capsule Home Medications: Albuterol Sulfate [Albuterol Inhaler] 2 puff IH Q4HR PRN 05/17/15 [History] Ezetimibe [Zetia] 10 mg PO DAILY 05/17/15 [History] Metformin HCl [Glucophage] 1,000 mg PO BID 05/17/15 [History] Tiotropium [Spiriva] 18 mcg IH DAILY 05/17/15 [History] Clopidogrel [Plavix] 75 mg PO DAILY 10/27/17 [History] Lisinopril [Zestril] 2.5 mg PO DAILY 10/27/17 [History] Metoprolol Succinate [Toprol Xl] 25 mg PO DAILY 10/27/17 [History] Glimepiride [Amaryl] 2 mg PO 0800 15 Days #15 tablet 11/02/17 [Rx] Lipase/Protease/Amylase [Creon Dr 12,000 Units Capsule] 1 cap PO BID 11/10/17 [ History] Promethazine [Phenergan] 25 mg PO BID 11/10/17 [History] Morphine Immed Rel [Morphine Sulfate] 15 mg PO Q4HR PRN 3 Days #10 tab 11/13/17 [Rx] Cholestyramine 4 g PO BID 01/24/18 [History] Perphenazine [Trilafon] 8 mg PO DAILY 01/24/18 [History] Warfarin Sodium 9 mg PO DAILY 01/24/18 [History] Furosemide [Lasix] 40 mg PO DAILY #30 tablet 02/04/18 [Rx] Tamsulosin [Flomax] 0.4 mg PO DAILY #30 capsule 02/04/18 [Rx] acetaZOLAMIDE [Diamox] 250 mg PO BID #3 tablet 02/04/18 [Rx] Allergies/Adverse Reactions: 3 Allergy/AdvReac Type Severity Reaction Status Date / Time loxapine [From Loxitane] Allergy See Verified 01/24/18 19:21 Comments betamethasone AdvReac Hives Verified 01/24/18 19:21 [From Lotrisone] clotrimazole [From Lotrisone] AdvReac Hives Verified 01/24/18 19:21 Sulfa (Sulfonamide AdvReac Hives Verified 01/24/18 19:21 Antibiotics) Certification: Further, I certify that my clinical findings support that this patient is homebound (i.e. absences from home require considerable and taxing effort and are for medical reasons or jehovah's witness services or infrequently or short duration when for other reasons) because: Homebound Reason: Patient requires assistance of a person or device to safely leave home Attestation: My signature below is to certify that this patient is under my care and that I, or nurse practitioner, or a physician's legal administrative assistant working with me, has a face-to -face encounter with this patient.
[2018-02-04] MEDS ORDERED: *HR* Warfarin 3 MG TABLET PO SCH (18:00)
== END 2018-02-04 16:11 | disposition home or self-care (01) | DRG 226 ==
LOC: 2NENU 19:19 → EMEROO 19:19 → 2NENU 01-25 00:22
PROVIDERS: ADMIT Internal Medicine Nephrology; ATTEND Internal Medicine Nephrology

== ENCOUNTER 2018-03-17 12:08 | Inpatient (IN) ==
[2018-03-17 12:45] LABS: Basophils % 0.4 %; Eosinophils # 0.1 K/mcL (0.0-0.6); Eosinophils % 0.7 %; Hematocrit 41.9 % (37.5-50.1); Immature Granulocytes % 0.1 % (0-4); Lymphocytes # 1.6 K/mcL (0.6-4.6); Lymphocytes % 17.7 %; Mean Corpuscular Hemoglobin 29.9 pg (28.0-33.3); Mean Corpuscular Volume 96.3 fL (83.0-100.0); Mean Platelet Volume 10.1 fL (9.4-12.4); Monocytes # 0.9 K/mcL (0.0-1.3); Monocytes % 10.4 %; Neutrophils # 6.3 K/mcL (1.6-8.9); Platelet Count 250 K/mcL (140-400); Red Blood Count 4.35 M/mcL (4.19-5.50); Red Cell Distribution Width 17.4 % (11.5-14.5); Segmented Neutrophils % 70.7 %
[2018-03-17 12:53] LABS: Activated Partial Thrombo Time 44.5 Seconds (26.0-36.0)
[2018-03-17 13:01] LABS: Prothrombin Time 75.7 Seconds (9.4-12.1)
[2018-03-17 13:02] LABS: INR 6.7
[2018-03-17 13:14] LABS: Alanine Aminotransferase 17 Units/L (7-52); Albumin 4.3 g/dL (3.5-5.7); Albumin/Globulin Ratio 1.4 (1.1-2.2); Alkaline Phosphatase 105 Units/L (34-104); Aspartate Amino Transferase 19 Units/L (13-39); BUN/Creatinine Ratio 25 (6-26); Bilirubin,Direct 0.5 mg/dL (0.0-0.2); Bilirubin,Indirect 0.8 mg/dL (0.0-1.2); Bilirubin,Total 1.3 mg/dL (0.3-1.0); Blood Urea Nitrogen 33 mg/dL (8-23); Calcium 9.2 mg/dL (8.6-10.3); Carbon Dioxide 28 mEq/L (23-29); Chloride 98 mEq/L (98-107); Globulin 3.1 g/dL (2.4-3.5); Glucose 145 mg/dL (70-105); Osmolality,Calculated 296 (280-300); Potassium 4.4 mEq/L (3.5-5.1); Sodium 138 mEq/L (136-145); Total Protein 7.4 g/dL (6.4-8.9); eGFR For Non-African Americans 55 (> 60)
[2018-03-17 13:19] LABS: Troponin I 0.05 ng/mL (< 0.04)
[2018-03-17 13:33] LABS: Bilirubin,Urine Small (Negative); Blood,Urine Small (Negative); Color,Urine Dark Yellow (Yellow); Glucose,Urine (UA) Normal (Normal); Ketones,Urine Negative (Negative); Leukocyte Esterase,Urine Large (Negative); Nitrite,Urine Positive (Negative); PH,Urine 5.5 pH Units (5.0-8.0); Protein,Urine 30 mg/dL (Neg-Trace); Specific Gravity,Urine 1.019 (1.010-1.025); Urobilinogen,Urine Normal (Normal)
[2018-03-17 13:35] LABS: Bacteria,Urine Many per hpf (None-Few); Hyaline Casts,Urine Few per lpf (None-Few); Squamous Epithelial Cell,Urine Moderate per lpf (None-Few); WBC,Urine TNTC per hpf (0-3)
[2018-03-17 13:38] LABS: Clarity,Urine Clear (Clear)
--- NOTE | 2018-03-17 13:44 | Emergency Department Note ---
Disposition Clinical Impression: Acute cystitis, Anasarca, Elevated lactic acid level, Pleural effusion, right, SOB (shortness of breath), Orthopnea, Elevated INR Disposition: Admitted As Inpatient Referrals: Zackary Hale MD [Primary Care Provider] - Forms: ED Satisfaction Letter Time of Disposition: 15:45 SOB HPI - General Chief Complaint: ED Shortness of Breath/Dyspnea Stated Complaint: HADLEY Time Seen by Provider: 03/17/18 12:26 Source: EMS Limitations: no limitations Nursing Notes Reviewed: Yes Vital Signs Reviewed: Yes - History of Present Illness 62-year-old male present emergency room for increasing abdominal distention and shortness of breath and swelling. States he is gained 18 pounds in the past week. He states his abdomen has doubled in size. He feels short of breath. He is unable to lie flat secondary to all the fluid in his abdomen. He denies any history of liver disease. No history of hepatitis or cirrhosis. He does not drink alcohol. He denies chest pain. He does admit to the dyspnea. Denies any significant abdominal pain. No fevers or chills. No other complaints at this time. - Related Data Home Medications Medication Instructions Recorded Confirmed Albuterol Sulfate [Albuterol 2 puff IH Q4HR PRN 05/17/15 01/24/18 Inhaler] Ezetimibe [Zetia] 10 mg PO DAILY 05/17/15 01/24/18 Metformin HCl [Glucophage] 1,000 mg PO BID 05/17/15 01/24/18 Tiotropium [Spiriva] 18 mcg IH DAILY 05/17/15 01/24/18 Clopidogrel [Plavix] 75 mg PO DAILY 10/27/17 01/24/18 Lisinopril [Zestril] 2.5 mg PO DAILY 10/27/17 01/24/18 Metoprolol Succinate [Toprol Xl] 25 mg PO DAILY 10/27/17 01/24/18 Lipase/Protease/Amylase [Creon Dr 1 cap PO BID 11/10/17 01/24/18 12,000 Units Capsule] Promethazine [Phenergan] 25 mg PO BID 11/10/17 01/24/18 Cholestyramine 4 g PO BID 01/24/18 01/24/18 Perphenazine [Trilafon] 8 mg PO DAILY 01/24/18 01/24/18 Warfarin Sodium 9 mg PO DAILY 01/24/18 01/24/18 Previous Rx's Medication Instructions Recorded Glimepiride [Amaryl] 2 mg PO 0800 15 Days #15 tablet 11/02/17 Morphine Immed Rel [Morphine 15 mg PO Q4HR PRN 3 Days #10 tab 11/13/17 Sulfate] Furosemide [Lasix] 40 mg PO DAILY #30 tablet 02/04/18 Tamsulosin [Flomax] 0.4 mg PO DAILY #30 capsule 02/04/18 acetaZOLAMIDE [Diamox] 250 mg PO BID #3 tablet 02/04/18 Allergies Allergy/AdvReac Type Severity Reaction Status Date / Time loxapine [From Loxitane] Allergy See Verified 01/24/18 19:21 Comments betamethasone AdvReac Hives Verified 01/24/18 19:21 [From Lotrisone] clotrimazole [From Lotrisone] AdvReac Hives Verified 01/24/18 19:21 Sulfa (Sulfonamide AdvReac Hives Verified 01/24/18 19:21 Antibiotics) Constitutional: Reports: as per HPI. Denies: fever, chills Eyes: Reports: as per HPI ENT ED: Reports: as per HPI Cardiovascular: Reports: dyspnea on exertion, orthopnea, edema. Denies: chest pain, syncope Respiratory: Reports: as per HPI Gastrointestinal: Reports: as per HPI, other (Abdominal distention) Genitourinary: Reports: as per HPI Musculoskeletal: Reports: as per HPI Integumentary: Reports: as per HPI Neurological: Reports: as per HPI Psychiatric: Reports: as per HPI Hematological/Lymphatic: Reports: as per HPI Allergic/Immunologic: Reports: as per HPI Past Medical History - Past Medical History Medical history: Reports: cancer, COPD, coronary artery disease, diabetes, myocardial infarction, other Surgical history: Reports: angioplasty/stent, cataract, herniorrhaphy, other Psychiatric history: Reports: no psych history - Social History Smoking Status: Current every day smoker Smokeless Tobacco Status: No Alcohol use: Reports: none Drug use: Reports: none Physical Exam - General Limitations: no limitations General appearance: alert, in no apparent distress - Head Head exam: atraumatic, normocephalic - Eye Eye exam: Present: normal appearance - ENT ENT exam: normal exam - Neck Neck exam: Present: normal inspection - Chest Chest inspection: Present: normal inspection, other (Decreased breath sounds bilaterally in the bases.) - Respiratory Respiratory exam: Present: normal lung sounds bilaterally, other (Decreased breath sounds in the bases bilaterally.) - Cardiovascular Cardiovascular exam: Present: regular rate, normal rhythm, normal heart sounds. Absent: bradycardia, tachycardia - Abdominal Exam Abdominal exam: Present: soft, tenderness, distention, diminished bowel sounds - Extremities Exam Extremities exam: Present: normal inspection - Expanded Lower Extremity Exam Hip/Pelvis exam: Present: normal inspection - Back Exam Back exam: Present: normal inspection - Neurological Exam Neurological exam: Present: alert, oriented X3 - Psychiatric Psychiatric exam: Present: normal affect - Skin Skin exam: Present: warm, dry, intact Course Vital Signs Temperature 97.6 F 03/17/18 12:10 Pulse Rate 93 03/17/18 12:10 Respiratory Rate 23 03/17/18 12:10 Blood Pressure 115/68 03/17/18 12:10 O2 Sat by Pulse Oximetry 98 03/17/18 12:10 Temperature 97.6 F 03/17/18 12:10 Pulse Rate 73 03/17/18 15:21 Respiratory Rate 18 03/17/18 15:21 Blood Pressure 105/58 03/17/18 15:21 O2 Sat by Pulse Oximetry 100 03/17/18 15:21 Oxygen Delivery Oxygen Delivery Room Air Shortness of Breath/Dyspnea - [facility] Narrative Medical decision making narrative: Chest x-ray shows concerns for right lower lobe infiltrate. I did order blood cultures and started him on Rocephin and Zithromax. His INR was 6.7. He does take Coumadin. Patient's CT shows evidence of diffuse anasarca. I have ordered him some more IV Lasix. His albumin is normal. I ordered him 40 mg of Lasix. I did speak with Dr. mulligan with general surgery due to the CT findings for possible cholecystitis with duodenitis versus pancreatitis. His lipase is normal. His LFTs are normal. I feel that this nonspecific swelling and edema in this area secondary to the anasarca. Patient will need to be worked up for this diffuse swelling and third spacing of fluid. His UTI was treated with Rocephin as mentioned earlier. No critical care time. - Medical Records Medical records reviewed: Yes I reviewed the patient's medical records. - Lab Data Lab results reviewed: Yes I reviewed the patient's lab results. Result diagrams: 03/17/18 12:32 03/17/18 12:32 Lab Results 03/17/18 03/17/18 03/17/18 Range/Units 12:32 12:32 12:32 WBC 9.0 (4.3-11.1) K/mcL RBC 4.35 (4.19-5.50) M/mcL Hgb 13.0 (12.9-16.9) g/dL Hct 41.9 (37.5-50.1) % MCV 96.3 (83.0-100.0) fL MCH 29.9 (28.0-33.3) pg MCHC 31.0 L (31.6-35.5) g/dL RDW 17.4 H (11.5-14.5) % Plt Count 250 (140-400) K/mcL MPV 10.1 (9.4-12.4) fL Immature Gran % 0.1 (0-4) % Seg Neutrophils % 70.7 % Lymphocytes % 17.7 % Monocytes % 10.4 % Eosinophils % 0.7 % Basophils % 0.4 % Neutrophils # 6.3 (1.6-8.9) K/mcL Lymphocytes # 1.6 (0.6-4.6) K/mcL Monocytes # 0.9 (0.0-1.3) K/mcL Eosinophils # 0.1 (0.0-0.6) K/mcL Basophils # 0.0 (0.0-0.2) K/mcL PT 75.7 H* (9.4-12.1) Seconds INR 6.7 H* APTT 44.5 H (26.0-36.0) Seconds Sodium 138 (136-145) mEq/L Potassium 4.4 (3.5-5.1) mEq/L Chloride 98 (98-107) mEq/L Carbon Dioxide 28 (23-29) mEq/L BUN 33 H (8-23) mg/dL Creatinine 1.32 H (0.70-1.30) mg/dL Est GFR ( Amer) > 60 (> 60) Est GFR (Non-Af Amer) 55 L (> 60) BUN/Creatinine Ratio 25 (6-26) Glucose 145 H (70-105) mg/dL Calculated Osmolality 296 (280-300) Lactic Acid (0.5-2.2) mmol/L Calcium 9.2 (8.6-10.3) mg/dL Total Bilirubin 1.3 H (0.3-1.0) mg/dL Direct Bilirubin 0.5 H (0.0-0.2) mg/dL Indirect Bilirubin 0.8 (0.0-1.2) mg/dL AST 19 (13-39) Units/L ALT 17 (7-52) Units/L Alkaline Phosphatase 105 H (34-104) Units/L Troponin I 0.05 H* (< 0.04) ng/mL B-Natriuretic Peptide (Less than 100) pg/mL Serum Total Protein 7.4 (6.4-8.9) g/dL Albumin 4.3 (3.5-5.7) g/dL Globulin 3.1 (2.4-3.5) g/dL Albumin/Globulin Ratio 1.4 (1.1-2.2) Lipase 29 (11-82) Units/L Urine Color (Yellow) Urine Clarity (Clear) Urine pH (5.0-8.0) pH Units Ur Specific [place] (1.010-1.025) Urine Protein (Neg-Trace) mg/dL Urine Glucose (UA) (Normal) mg/dL Urine Ketones (Negative) mg/dL Urine Blood (Negative) Urine Nitrite (Negative) Urine Bilirubin (Negative) Urine Urobilinogen (Normal) mg/dL Ur Leukocyte Esterase (Negative) Urine Microscopic RBC (0-3) per hpf Urine Microscopic WBC (0-3) per hpf Ur Squamous Epith Cells (None-Few) per lpf Urine Bacteria (None-Few) per hpf Hyaline Casts (None-Few) per lpf Ur Culture Indicated? (NO) 03/17/18 03/17/18 03/17/18 Range/Units 12:32 12:32 13:20 WBC (4.3-11.1) K/mcL RBC (4.19-5.50) M/mcL Hgb (12.9-16.9) g/dL Hct (37.5-50.1) % MCV (83.0-100.0) fL MCH (28.0-33.3) pg MCHC (31.6-35.5) g/dL RDW (11.5-14.5) % Plt Count (140-400) K/mcL MPV (9.4-12.4) fL Immature Gran % (0-4) % Seg Neutrophils % % Lymphocytes % % Monocytes % % Eosinophils % % Basophils % % Neutrophils # (1.6-8.9) K/mcL Lymphocytes # (0.6-4.6) K/mcL Monocytes # (0.0-1.3) K/mcL Eosinophils # (0.0-0.6) K/mcL Basophils # (0.0-0.2) K/mcL PT (9.4-12.1) Seconds INR APTT (26.0-36.0) Seconds Sodium (136-145) mEq/L Potassium (3.5-5.1) mEq/L Chloride (98-107) mEq/L Carbon Dioxide (23-29) mEq/L BUN (8-23) mg/dL Creatinine (0.70-1.30) mg/dL Est GFR ( Amer) (> 60) Est GFR (Non-Af Amer) (> 60) BUN/Creatinine Ratio (6-26) Glucose (70-105) mg/dL Calculated Osmolality (280-300) Lactic Acid 4.2 H* (0.5-2.2) mmol/L Calcium (8.6-10.3) mg/dL Total Bilirubin (0.3-1.0) mg/dL Direct Bilirubin (0.0-0.2) mg/dL Indirect Bilirubin (0.0-1.2) mg/dL AST (13-39) Units/L ALT (7-52) Units/L Alkaline Phosphatase (34-104) Units/L Troponin I (< 0.04) ng/mL B-Natriuretic Peptide 2355 H (Less than 100) pg/mL Serum Total Protein (6.4-8.9) g/dL Albumin (3.5-5.7) g/dL Globulin (2.4-3.5) g/dL Albumin/Globulin Ratio (1.1-2.2) Lipase (11-82) Units/L Urine Color Dark Yellow (Yellow) Urine Clarity Clear (Clear) Urine pH 5.5 (5.0-8.0) pH Units Ur Specific [place] 1.019 (1.010-1.025) Urine Protein 30 H (Neg-Trace) mg/dL Urine Glucose (UA) Normal (Normal) mg/dL Urine Ketones Negative (Negative) mg/dL Urine Blood Small H (Negative) Urine Nitrite Positive A (Negative) Urine Bilirubin Small H (Negative) Urine Urobilinogen Normal (Normal) mg/dL Ur Leukocyte Esterase Large H (Negative) Urine Microscopic RBC 5-15 H (0-3) per hpf Urine Microscopic WBC TNTC H (0-3) per hpf Ur Squamous Epith Cells Moderate H (None-Few) per lpf Urine Bacteria Many H (None-Few) per hpf Hyaline Casts Few (None-Few) per lpf Ur Culture Indicated? YES A (NO) - Radiology Data Radiology results reviewed: Yes I reviewed the patient's radiology results. - EKG Data EKG attestation: Yes I reviewed and interpreted this EKG. EKG results narrative: EKG shows a rate of 88. No sinus rhythm. [place]. [place] interval 203. QRS 116. QTC 471. No signs of acute ischemia. Sinus arrhythmia present
[2018-03-17] MEDS ORDERED: cefTRIAXone 1,000 MG in Water for inj. (sterile) 20 ML 10 ML IVP ONE (14:00)
[2018-03-17] MEDS ORDERED: Azithromycin 500 MG in D5% in Water 250 ML IVPB ONE (14:00)
[2018-03-17 15:13] LABS: Lipase 29 Units/L (11-82)
[2018-03-17] MEDS ORDERED: Furosemide 40 MG/4 ML VIAL IVP ONE (15:24)
[2018-03-17] MEDS ORDERED: Acetaminophen 325 MG TABLET PO PRN (16:10)
[2018-03-17] MEDS ORDERED: Naloxone 0.4 MG/ML INJ IVP PRN (16:10)
--- NOTE | 2018-03-17 16:19 | Internal Med History&Physical ---
Date of Encounter: 03/17/18 Time of Encounter: 16:16 Internal Medicine - H&P: HPI Chief complaint: Shortness of breath, weight gain Admitted From: Emergency Dept Plans for Post Hospital Care: Home History of present illness: Mr. Emmanuel is a 62 year old male patient with a history of cardiomyopathy with EF of 20-25%, coronary artery disease, status post AICD placement 1 month back, diabetes, hypertension, COPD and chronic respiratory failure on 2 L nasal cannula, chronic pancreatitis presented to the ER with complaints of shortness of breath. Present both at rest and with mild exertion, does have significant orthopnea to the point where he does not lie down on his back at all. He has also been having increasing swelling in his lower extremities and around his abdomen and he has had about 18 pounds of weight gain over the past couple of weeks. She denies any chest pain or palpitations. Denies any dizziness or lightheadedness. No nausea or vomiting. He denies any decrease in his urine output. He been told he had BPH and previously had a urinary catheter placed but he currently does not have any trouble urinating. He denies any dysuria. No fevers or chills. He is reports that he has been taking his medications as prescribed. No fever or change in cough/sputum production. Patient also states that he had cellulitis before in both lower extremities which was treated with antibiotics and has not improved. Patient does not have any abdominal pain. Past Med Surg Social Fam HX - Past Medical History Attestation: Yes The following information was validated with the patient. Source: patient, old records reviewed Medical history: cancer, cardiomyopathy, COPD, coronary artery disease, diabetes , myocardial infarction, other (Chronic pancreatitis) Additional medical history: pancreatitis Psychiatric history: no psych history - Past Surgical History Surgical History: angioplasty/stent, cataract, herniorrhaphy, other Additional surgical history: x3 stents - Social History Smoking Status: Current every day smoker Smokeless Tobacco Status: No Alcohol use: none Drug use: none - Family History Father Adopted: No Living Status: Hx Family Cardiac Disorders: Yes Hx Family Respiratory Disorders: Yes Hx Family Cancer: Yes Hx Family GI Disorders: No Hx Family Endocrine Disorder: No Hx Family Neuromuscular Disorders: No Hx Family Neurologic Disorders: No Hx Family HEENT Disorders: No Hx Family Autoimmune Disorders: No Mother Adopted: No Family Member Ethnicity: Non- Living Status: Hx Family Cardiac Disorders: No Hx Family Respiratory Disorders: Yes Hx Family Cancer: Yes Hx Family GI Disorders: No Hx Family Endocrine Disorder: Yes Hx Family Neuromuscular Disorders: No Hx Family Neurologic Disorders: No Hx Family HEENT Disorders: No Hx Family Autoimmune Disorders: No Internal Medicine - H&P: Meds Albuterol Sulfate [Albuterol Inhaler] 2 puff IH Q4HR PRN 05/17/15 [History] Ezetimibe [Zetia] 10 mg PO DAILY 05/17/15 [History] Metformin HCl [Glucophage] 1,000 mg PO BID 05/17/15 [History] Tiotropium [Spiriva] 18 mcg IH DAILY 05/17/15 [History] Clopidogrel [Plavix] 75 mg PO DAILY 10/27/17 [History] Lisinopril [Zestril] 2.5 mg PO DAILY 10/27/17 [History] Metoprolol Succinate [Toprol Xl] 25 mg PO DAILY 10/27/17 [History] Glimepiride [Amaryl] 2 mg PO 0800 15 Days #15 tablet 11/02/17 [Rx] Lipase/Protease/Amylase [Creon Dr 12,000 Units Capsule] 1 cap PO BID 11/10/17 [ History] Promethazine [Phenergan] 25 mg PO BID 11/10/17 [History] Morphine Immed Rel [Morphine Sulfate] 15 mg PO Q4HR PRN 3 Days #10 tab 11/13/17 [Rx] Cholestyramine 4 g PO BID 01/24/18 [History] Perphenazine [Trilafon] 8 mg PO DAILY 01/24/18 [History] Warfarin Sodium 9 mg PO DAILY 01/24/18 [History] Furosemide [Lasix] 40 mg PO DAILY #30 tablet 02/04/18 [Rx] Tamsulosin [Flomax] 0.4 mg PO DAILY #30 capsule 02/04/18 [Rx] acetaZOLAMIDE [Diamox] 250 mg PO BID #3 tablet 02/04/18 [Rx] 3 Allergy/AdvReac Type Severity Reaction Status Date / Time loxapine [From Loxitane] Allergy See Verified 01/24/18 19:21 Comments betamethasone AdvReac Hives Verified 01/24/18 19:21 [From Lotrisone] clotrimazole [From Lotrisone] AdvReac Hives Verified 01/24/18 19:21 Sulfa (Sulfonamide AdvReac Hives Verified 01/24/18 19:21 Antibiotics) All Systems PM: A 10-system review of systems was performed and is negative for pertinent findings except as documented above in the HPI. - Constitutional Constitutional: fatigue, malaise - EENT Eyes: no change in vision, no discharge, no pain, no photophobia Ears: no ear discharge, no ear pain, no tinnitus Nose, mouth and throat: no dysphagia, no nasal discharge, no neck pain, no sore throat - Cardiovascular Cardiovascular ROS IM: dyspnea, dyspnea on exertion, edema, orthopnea, no chest pain, no diaphoresis, no lightheadedness, no palpitations, no syncope - Respiratory Respiratory: dyspnea, no cough, no wheezing, no excessive phlegm production - Gastrointestinal Gastrointestinal: no abdominal pain, no diarrhea, no hematemesis, no hematochezia, no melena, no nausea, no vomiting - Musculoskeletal Musculoskeletal ROS IM: no numbness, no tingling - Integumentary Integumentary IM: no rash, no unusual bruising - Neurological Neurological ROS: no confusion, no convulsions, no focal weakness, no numbness, no tingling, no tremor(s) - Hematologic/Lymphatic Hematologic/Lymphatic: no easy bruising - Constitutional Vitals: Temp Pulse Resp BP Pulse Ox 97.6 F 73 18 105/58 100 03/17/18 12:10 03/17/18 15:21 03/17/18 15:21 03/17/18 15:21 03/17/18 15:21 General appearance: Present: cooperative, disheveled, A&O X 3, answers questions appropriately Exam: . - Neck Neck exam general surgery: Present: supple, trachea midline. Absent: lymphadenopathy - Respiratory Respiratory exam: Present: prolonged expiratory phase. Absent: accessory muscle use, rales, rhonchi, wheezes Additional comments: Basal crackles - Cardiovascular Cardiovascular exam: Present: RRR, +S1, +S2. Absent: diastolic murmur, gallop, rubs, systolic murmur - GI/Abdominal GI/Abdominal exam: Present: distended, normal bowel sounds, soft, no peritoneal signs. Absent: tenderness Additional comments: No tenderness. - Extremities Exam Extremities exam: Present: pedal edema, warm, radial pulses palpable and symmetrical. Absent: calf tenderness, cyanotic Additional comments: Both extremities bandaged over the lower legs. - Neurological Exam Neurological exam: Present: alert, oriented X3, no focal deficits, strengths equal and symetr throughout. Absent: facial droop, speech deficit - Skin Skin exam: Present: dry, intact Internal Med - H&P Results - Labs CBC & Chem 7: 03/17/18 12:32 03/17/18 12:32 Labs: Short CBC 03/17/18 Range/Units 12:32 WBC 9.0 (4.3-11.1) K/mcL Hgb 13.0 (12.9-16.9) g/dL Hct 41.9 (37.5-50.1) % Plt Count 250 (140-400) K/mcL Neutrophils # 6.3 (1.6-8.9) K/mcL BMP 03/17/18 12:32 Sodium 138 Potassium 4.4 Chloride 98 Carbon Dioxide 28 BUN 33 H Creatinine 1.32 H Glucose 145 H Calcium 9.2 Cardiac Enzymes 03/17/18 Range/Units 12:32 Troponin I 0.05 H* (< 0.04) ng/mL Liver Function 03/17/18 Range/Units 12:32 Total Bilirubin 1.3 H (0.3-1.0) mg/dL Direct Bilirubin 0.5 H (0.0-0.2) mg/dL AST 19 (13-39) Units/L ALT 17 (7-52) Units/L Alkaline Phosphatase 105 H (34-104) Units/L Albumin 4.3 (3.5-5.7) g/dL Urine 03/17/18 Range/Units 13:20 Urine Color Dark Yellow (Yellow) Urine Clarity Clear (Clear) Urine pH 5.5 (5.0-8.0) pH Units Ur Specific [place] 1.019 (1.010-1.025) Urine Protein 30 H (Neg-Trace) mg/dL Urine Glucose (UA) Normal (Normal) mg/dL - EKG Data -: EKG Interpreted by Myself EKG shows normal: sinus rhythm - EKG Data EKG comments: 03/17/18 16:26 Sinus rhythm with PVCs. - Impressions ITS Impressions Chest X-Ray 03/17/18 12:26 IMPRESSION: Vascular congestion without overt edema. New focal rounded consolidative airspace disease in the right lung base is most likely pneumonia or atelectasis although follow-up to ensure resolution is recommended to exclude neoplasm. A chest x-ray 2 weeks after after treatment is recommended. D/ / Kole Shahid MD / Kole Shahid MD Interpreting Provider: Kole Shahid MD Abdomen/Pelvis CT 03/17/18 13:11 IMPRESSION: As seen on the previous examination, there are mild inflammatory changes seen in the region of the gallbladder, duodenum as well as pancreas. Correlate for possible pancreatitis/duodenitis/and/or cholecystitis. Diffuse anasarca, with edematous changes seen within the mesentery as well as in the right upper quadrant as described on the above impression. There is also a small volume of abdominal and pelvic ascites, changes of which may be related to third spacing. Cardiomegaly, with low attenuation in the cardiac chambers suggesting anemia. Moderate to large right pleural effusion. Atherosclerotic disease. Wall thickening in the bladder with adjacent stranding. This could be related to third spacing with decreased bladder distention, however wall thickening related to acute cystitis would be in the differential. D/ / 03/17/2018 14:56:32 Brandt Marshall MD / jethro Interpreting Provider: Brandt Marshall MD - Assessment and plan (1) CHF (congestive heart failure) Current Visit: Yes Status: Acute Assessment and plan: Patient presenting with acute congestive heart failure. Has been gaining weight and has exertional dyspnea and pedal edema and generalized anasarca. Will place him on IV Lasix. Monitor renal function closely. Daily weights. Monitor input and output. He did have an echocardiogram done last month which showed EF of 20-25%. High risk for complications. Patient has mild troponin elevation which appears to be chronic for him. BNP is elevated above his baseline at 2355. Qualifiers: Qualified Code(s): I50.41 - Acute combined systolic (congestive) and diastolic (congestive) heart failure (2) Acute cystitis Current Visit: Yes Status: Acute Assessment and plan: Urinalysis suggests UTI. Will treat with IV Rocephin. Follow culture results. Patient does have elevated lactic acid levels but this could be related to metformin use as patient does not have any other signs of sepsis. We will hold metformin. Follow lactic acid levels. Qualifiers: Hematuria presence: without hematuria Qualified Code(s): N30.00 - Acute cystitis without hematuria (3) CAD (coronary artery disease) Current Visit: Yes Status: Chronic Assessment and plan: Continue home medications. Patient not having any chest pain Qualifiers: Coronary Disease-Associated Artery/Lesion type: [place] artery [place] vs. transplanted heart: [place] heart Associated angina: angina presence unspecified Qualified Code(s): I25.10 - Atherosclerotic heart disease of [place] coronary artery without angina pectoris (4) COPD (chronic obstructive pulmonary disease) Current Visit: Yes Status: Chronic Assessment and plan: With chronic respiratory failure. Will place him on bronchodilators as needed. Continue O2 supplementation 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 - Other emphysema (5) Acute kidney injury Current Visit: Yes Status: Acute Assessment and plan: Patient has acute kidney injury with creatinine of 1.32. Could be from cardiorenal syndrome. Will give Lasix for now and follow renal function and urine output closely. If renal function worsens, consult nephrology. (6) Lactic acidosis Current Visit: Yes Status: Acute Assessment and plan: Patient has lactic acidosis with lactic acid level of 4.2. No clear signs of sepsis. Could be related to metformin use in the setting of acute kidney injury. We will follow lactic acid levels. He will receive antibiotics for UTI. (7) Type II diabetes mellitus Current Visit: Yes Status: Chronic Assessment and plan: Will place patient on sliding scale insulin. Diabetic diet. Monitor blood sugars. Qualifiers: Diabetes mellitus care home insulin use: without care home use Diabetes mellitus complication status: with circulatory complication Diabetes mellitus complication detail: with other circulatory complications Qualified Code(s): E11.59 - Type 2 diabetes mellitus with other circulatory complications (8) Elevated INR Current Visit: Yes Status: Acute Assessment and plan: INR is supratherapeutic. Hold Coumadin until INR less than 4 and resume per pharmacy recommendations. Target INR 2-3. On Coumadin for left ventricular mural thrombosis. (9) LV (left ventricular) mural thrombus Current Visit: Yes Status: Chronic Assessment and plan: History of left ventricular mural thrombus. On Coumadin. Currently INR is supratherapeutic. We will target INR of 2-3. - Time Spent With Patient Total time spent is greater than 50% in coordination of care (as documented) at patient's floor/unit and/or counseling patient:
[2018-03-17] MEDS ORDERED: Ipratropium/Albuterol Neb 3 ML IH PRN (16:34)
[2018-03-17] MEDS ORDERED: Warfarin perPT PO PRN (18:00)
[2018-03-17] MEDS: Cholestyramine 4 GM POWD.PACK PO SCH (22:13)
[2018-03-17] MEDS: Perphenazine 8 MG TABLET PO SCH (22:13)
[2018-03-18 04:48] LABS: Basophils # 0.1 K/mcL (0.0-0.2); Basophils % 0.6 %; Eosinophils # 0.2 K/mcL (0.0-0.6); Hematocrit 37.5 % (37.5-50.1); Hemoglobin 11.6 g/dL (12.9-16.9); Immature Granulocytes % 0.3 % (0-4); Lymphocytes # 1.6 K/mcL (0.6-4.6); Lymphocytes % 20.3 %; Mean Corpuscular HGB Conc 30.9 g/dL (31.6-35.5); Mean Corpuscular Hemoglobin 29.7 pg (28.0-33.3); Mean Corpuscular Volume 96.2 fL (83.0-100.0); Mean Platelet Volume 10.1 fL (9.4-12.4); Monocytes # 1.1 K/mcL (0.0-1.3); Monocytes % 14.2 %; Neutrophils # 4.9 K/mcL (1.6-8.9); Platelet Count 213 K/mcL (140-400); Red Cell Distribution Width 17.5 % (11.5-14.5); Segmented Neutrophils % 62.6 %
[2018-03-18 05:06] LABS: BUN/Creatinine Ratio 31 (6-26); Blood Urea Nitrogen 37 mg/dL (8-23); Calcium 8.7 mg/dL (8.6-10.3); Carbon Dioxide 30 mEq/L (23-29); Chloride 101 mEq/L (98-107); Chol/HDL Ratio 4.6 (0-4.9); Cholesterol 129 mg/dL (< 200); Glucose 134 mg/dL (70-105); HDL Cholesterol 28 mg/dL (40-59); LDL Cholesterol,Calculated 80 mg/dL (0-99); Osmolality,Calculated 299 (280-300); Potassium 4.2 mEq/L (3.5-5.1); Sodium 139 mEq/L (136-145); Triglycerides 104 mg/dL (< 150); eGFR For Non-African Americans > 60 (> 60)
[2018-03-18 05:13] LABS: Thyroid Stimulating Hormone 2.349 mcIU/mL (0.340-5.600)
[2018-03-18] MEDS: Tiotropium 18 MCG inhalation IH SCH (07:55)
[2018-03-18] MEDS: Cholestyramine 4 GM POWD.PACK PO SCH ×2 (08:56→21:03)
[2018-03-18] MEDS: ZETIA 10 MG PO SCH (08:57)
[2018-03-18] MEDS: Metoprolol XL (24 HR) Succ 25 MG TAB.ER.24H PO SCH (08:57)
[2018-03-18] MEDS ORDERED: cefTRIAXone 1,000 MG in 0.9 % Sodium Chloride Mini Bag 100 ML IVPB SCH (09:00)
[2018-03-18] MEDS ORDERED: Furosemide 40 MG/4 ML VIAL IVP SCH ×2 (09:00→17:00)
--- NOTE | 2018-03-18 10:14 | Internal Med Progress Note ---
Hospitalist Progress Note - Encounter Date of Encounter: 03/18/18 Time of Encounter: 10:11 - Subjective Interval History: Patient with history of severe cardiomyopathy, AICD, CAD, diabetes, hypertension , COPD, chronic respiratory failure on 2 L of oxygen, chronic pancreatitis patient was admitted with shortness of breath PND and orthopnea and lower extremity edema with a 18 pounds of weight gain also diagnosed with a UTI BNP was 2355 Patient received diuresis he first better - Exam Vitals: Temp Pulse Resp BP Pulse Ox 97.8 F 79 16 100/87 96 03/18/18 07:15 03/18/18 07:15 03/18/18 07:55 03/18/18 07:15 03/18/18 07:55 Exam: . - Assessment and Plan (1) Acute exacerbation of chronic obstructive airways disease Current Visit: No Status: Acute Assessment and Plan: Contribution of congestive heart failure (2) COPD (chronic obstructive pulmonary disease) Current Visit: Yes Status: Chronic Assessment and Plan: No active wheezing at this point (3) Diabetes Current Visit: No Status: Chronic Assessment and Plan: Continue on sliding scale (4) HTN (hypertension) Current Visit: No Status: Chronic Assessment and Plan: Chronic and well controlled (5) Obesity Current Visit: No Status: Chronic (6) Type II diabetes mellitus Current Visit: Yes Status: Chronic (7) CAD (coronary artery disease) Current Visit: Yes Status: Chronic Assessment and Plan: No chest pain (8) CHF (congestive heart failure) Current Visit: No Status: Chronic Assessment and Plan: reason for admission will continue on iv diuresis - Time Spent with Patient Total time spent is greater than 50% in coordination of care (as documented) at patient's floor/unit and/or counseling patient: Internal Medicine: Result - Labs CBC & Chem 7: 03/18/18 04:17 03/18/18 04:17 Labs: Short CBC 03/18/18 Range/Units 04:17 WBC 7.9 (4.3-11.1) K/mcL Hgb 11.6 L (12.9-16.9) g/dL Hct 37.5 (37.5-50.1) % Plt Count 213 (140-400) K/mcL Neutrophils # 4.9 (1.6-8.9) K/mcL BMP 03/18/18 04:17 Sodium 139 Potassium 4.2 Chloride 101 Carbon Dioxide 30 H BUN 37 H Creatinine 1.21 Glucose 134 H Calcium 8.7 - ABG Interpretation ABG results: PT/INR, D-dimer PT 75.7 Seconds (9.4-12.1) H* 03/17/18 12:32 Consult Discharge Plan - Plan Referrals: [facility] – [place],Zackary Barth MD [Primary Care Provider] - (2) COPD (chronic obstructive pulmonary disease) 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 - Other emphysema (3) Diabetes Qualifiers: Diabetes mellitus type: type 2 Diabetes mellitus medical terminologist insulin use: without shelter use Diabetes mellitus complication status: without complication Qualified Code(s): E11.9 - Type 2 diabetes mellitus without complications (4) HTN (hypertension) Qualifiers: Hypertension type: essential hypertension Qualified Code(s): I10 - Essential (primary) hypertension (5) Obesity Qualifiers: Obesity type: due to excess calories Obesity classification: adult class 3 ( BMI >= 40) Serious obesity comorbidity presence: without serious comorbidity Body mass index: BMI 40.0-44.9 Qualified Code(s): E66.01 - Morbid (severe) obesity due to excess calories; Z68.41 - Body mass index (BMI) 40.0-44.9, adult (6) Type II diabetes mellitus Qualifiers: Diabetes mellitus medical terminologist insulin use: without medical terminologist use Diabetes mellitus complication status: with circulatory complication Diabetes mellitus complication detail: with other circulatory complications Qualified Code(s): E11.59 - Type 2 diabetes mellitus with other circulatory complications (7) CAD (coronary artery disease) Qualifiers: Coronary Disease-Associated Artery/Lesion type: [place] artery [place] vs. transplanted heart: [place] heart Associated angina: angina presence unspecified Qualified Code(s): I25.10 - Atherosclerotic heart disease of [place] coronary artery without angina pectoris (8) CHF (congestive heart failure) Qualifiers: Heart failure type: systolic Heart failure chronicity: chronic Qualified Code(s): I50.22 - Chronic systolic (congestive) heart failure
--- NOTE | 2018-03-18 14:39 | General Surgery Consult Note ---
Date of Encounter: 03/18/18 Time of Encounter: 14:39 Past Med Surg Social Fam HX - Past Medical History Medical history: cancer, cardiomyopathy, COPD, coronary artery disease, diabetes , myocardial infarction, other Additional medical history: pancreatitis Psychiatric history: no psych history - Past Surgical History Surgical History: angioplasty/stent, cataract, herniorrhaphy, other Additional surgical history: x3 stents - Social History Smoking Status: Current every day smoker Smokeless Tobacco Status: No Alcohol use: none Drug use: none - Family History Father Adopted: No Living Status: Age at : 64 Cause of : lung cancer Hx Family Cardiac Disorders: No Hx Family Respiratory Disorders: Yes Hx Family Cancer: Yes Hx Family GI Disorders: No Hx Family Endocrine Disorder: No Hx Family Neuromuscular Disorders: No Hx Family Neurologic Disorders: No Hx Family HEENT Disorders: No Hx Family Autoimmune Disorders: No Hx Family Medical Disorders: Yes Mother Adopted: No Family Member Ethnicity: Non- Living Status: Hx Family Cardiac Disorders: No Hx Family Respiratory Disorders: Yes Hx Family Cancer: Yes Hx Family GI Disorders: No Hx Family Endocrine Disorder: Yes Hx Family Neuromuscular Disorders: No Hx Family Neurologic Disorders: No Hx Family HEENT Disorders: No Hx Family Autoimmune Disorders: No Medications and Allergies Albuterol Sulfate [Albuterol Inhaler] 2 puff IH Q4HR PRN 05/17/15 [History] Ezetimibe [Zetia] 10 mg PO DAILY 05/17/15 [History] Metformin HCl [Glucophage] 1,000 mg PO BID 05/17/15 [History] Tiotropium [Spiriva] 18 mcg IH DAILY 05/17/15 [History] Clopidogrel [Plavix] 75 mg PO DAILY 10/27/17 [History] Lisinopril [Zestril] 2.5 mg PO DAILY 10/27/17 [History] Metoprolol Succinate [Toprol Xl] 25 mg PO DAILY 10/27/17 [History] Lipase/Protease/Amylase [Creon Dr 12,000 Units Capsule] 1 cap PO BID 11/10/17 [ History] Promethazine [Phenergan] 25 mg PO BID PRN 11/10/17 [History] Cholestyramine 4 g PO BID 01/24/18 [History] Perphenazine [Trilafon] 8 mg PO HS 01/24/18 [History] Furosemide [Lasix] 40 mg PO DAILY #30 tablet 02/04/18 [Rx] Tamsulosin [Flomax] 0.4 mg PO DAILY #30 capsule 02/04/18 [Rx] Warfarin Sodium [Warfarin Sodium] 2.5 mg PO HS 03/17/18 [History] Warfarin Sodium [Warfarin Sodium] 6 mg PO HS 03/17/18 [History] 3 Allergy/AdvReac Type Severity Reaction Status Date / Time loxapine [From Loxitane] Allergy See Verified 01/24/18 19:21 Comments betamethasone AdvReac Hives Verified 01/24/18 19:21 [From Lotrisone] clotrimazole [From Lotrisone] AdvReac Hives Verified 01/24/18 19:21 Sulfa (Sulfonamide AdvReac Hives Verified 01/24/18 19:21 Antibiotics) Review of Systems All systems PM: The remainder of the systems were reviewed and are negative General Surgery Exam Initial Vital Signs Temp Pulse Resp BP Pulse Ox 97.6 F 93 23 115/68 98 03/17/18 12:10 03/17/18 12:10 03/17/18 12:10 03/17/18 12:10 03/17/18 12:10 Exam Initial Vital Signs Temp Pulse Resp BP Pulse Ox 97.6 F 93 23 115/68 98 03/17/18 12:10 03/17/18 12:10 03/17/18 12:10 03/17/18 12:10 03/17/18 12:10 Results - Labs 03/18/18 04:17 03/18/18 04:17 Abnormal lab results RBC 3.90 M/mcL (4.19-5.50) L 03/18/18 04:17 Hgb 11.6 g/dL (12.9-16.9) L 03/18/18 04:17 MCHC 30.9 g/dL (31.6-35.5) L 03/18/18 04:17 RDW 17.5 % (11.5-14.5) H 03/18/18 04:17 PT 75.7 Seconds (9.4-12.1) H* 03/17/18 12:32 INR 6.7 H* 03/17/18 12:32 APTT 44.5 Seconds (26.0-36.0) H 03/17/18 12:32 Carbon Dioxide 30 mEq/L (23-29) H 03/18/18 04:17 BUN 37 mg/dL (8-23) H 03/18/18 04:17 BUN/Creatinine Ratio 31 (6-26) H 03/18/18 04:17 Glucose 134 mg/dL (70-105) H 03/18/18 04:17 POC Glucose 151 mg/dL (70-99) H 03/17/18 20:53 Total Bilirubin 1.3 mg/dL (0.3-1.0) H 03/17/18 12:32 Direct Bilirubin 0.5 mg/dL (0.0-0.2) H 03/17/18 12:32 Alkaline Phosphatase 105 Units/L (34-104) H 03/17/18 12:32 Troponin I 0.05 ng/mL (< 0.04) H* 03/17/18 12:32 B-Natriuretic Peptide 2355 pg/mL (Less than 100) H 03/17/18 12:32 HDL Cholesterol 28 mg/dL (40-59) L 03/18/18 04:17 Urine Protein 30 mg/dL (Neg-Trace) H 03/17/18 13:20 Urine Blood Small (Negative) H 03/17/18 13:20 Urine Nitrite Positive (Negative) A 03/17/18 13:20 Urine Bilirubin Small (Negative) H 03/17/18 13:20 Ur Leukocyte Esterase Large (Negative) H 03/17/18 13:20 Urine Microscopic RBC 5-15 per hpf (0-3) H 03/17/18 13:20 Urine Microscopic WBC TNTC per hpf (0-3) H 03/17/18 13:20 Ur Squamous Epith Cells Moderate per lpf (None-Few) H 03/17/18 13:20 Urine Bacteria Many per hpf (None-Few) H 03/17/18 13:20 Ur Culture Indicated? YES (NO) A 03/17/18 13:20 Diabetes panel 03/18/18 Range/Units 04:17 Sodium 139 (136-145) mEq/L Potassium 4.2 (3.5-5.1) mEq/L Chloride 101 (98-107) mEq/L Carbon Dioxide 30 H (23-29) mEq/L BUN 37 H (8-23) mg/dL Creatinine 1.21 (0.70-1.30) mg/dL Glucose 134 H (70-105) mg/dL Calcium 8.7 (8.6-10.3) mg/dL Triglycerides 104 (< 150) mg/dL HDL Cholesterol 28 L (40-59) mg/dL Thyroid panel 03/18/18 Range/Units 04:17 TSH 2.349 (0.340-5.600) mcIU/mL Calcium panel 03/18/18 Range/Units 04:17 Calcium 8.7 (8.6-10.3) mg/dL Pituitary panel 03/18/18 Range/Units 04:17 Sodium 139 (136-145) mEq/L Potassium 4.2 (3.5-5.1) mEq/L Chloride 101 (98-107) mEq/L Carbon Dioxide 30 H (23-29) mEq/L BUN 37 H (8-23) mg/dL Creatinine 1.21 (0.70-1.30) mg/dL Glucose 134 H (70-105) mg/dL Calcium 8.7 (8.6-10.3) mg/dL TSH 2.349 (0.340-5.600) mcIU/mL Adrenal panel 03/18/18 Range/Units 04:17 Sodium 139 (136-145) mEq/L Potassium 4.2 (3.5-5.1) mEq/L Chloride 101 (98-107) mEq/L Carbon Dioxide 30 H (23-29) mEq/L BUN 37 H (8-23) mg/dL Creatinine 1.21 (0.70-1.30) mg/dL Glucose 134 H (70-105) mg/dL Calcium 8.7 (8.6-10.3) mg/dL All other labs normal. Consult Discharge Plan - Plan Referrals: [facility] [place],Zackary Barth MD [Primary Care Provider] -
--- NOTE | 2018-03-18 14:50 | Event Note ---
Date of Encounter: 03/18/18 Time of Encounter: 14:49 Went to see patient to evaluate for abdominal pain. Patient reports that Dr. Rucker has operated on him in the past and he would like Dr. Rucker to see him. Surgery will sign off at this time. Please consult Dr. Rucker if concern for surgical abdomen.
[2018-03-18] MEDS: cefTRIAXone 1,000 MG in Water for inj. (sterile) 20 ML 10 ML IVP SCH (14:55)
[2018-03-18 15:54] LABS: Prothrombin Time 74.6 Seconds (9.4-12.1)
[2018-03-18 15:55] LABS: INR 6.6
[2018-03-18] MEDS: Perphenazine 8 MG TABLET PO SCH (21:03)
[2018-03-18] MEDS ORDERED: 0.9 % Sodium Chloride 250 ML IVC ONE (21:24)
[2018-03-19] MEDS ORDERED: 0.9 % Sodium Chloride 1,000 ML IVC ONE (01:05)
[2018-03-19] MEDS ORDERED: Albumin 25% 25gram/100mL 25 GM/100 ML IV.SOLN IVPB ONE (01:12)
[2018-03-19] MEDS ORDERED: 0.9 % Sodium Chloride 500 ML IVC ONE (04:54)
[2018-03-19 05:27] LABS: INR 6.2; Prothrombin Time 69.7 Seconds (9.4-12.1)
--- NOTE | 2018-03-19 08:47 | Electrocardiograph Report ---
[address] [address] Test Date: 2018-03-17 Pat Name: Deuce Emmanuel Department: EXAM7 Room: 2NE32 Gender: M Quality Control Checker: : 1955 Requested By: Nabil Esparza Order Number: [id number] Reading MD: Allen Chambers Measurements Intervals [place] Rate: 88 P: 28 AL: 203 QRS: 4 QRSD: 116 T: 102 QT: 389 QTc: 471 Interpretive Statements Sinus rhythm PVCs Incomplete right bundle branch block Low voltage, precordial leads Nonspecific T abnormalities, lateral leads Electronically Signed On 03-19-2018 8:45:56 EDT by Allen Chambers
[2018-03-19 09:01] LABS: Hematocrit 39.5 % (37.5-50.1); Hemoglobin 11.8 g/dL (12.9-16.9); Mean Corpuscular HGB Conc 29.9 g/dL (31.6-35.5); Mean Corpuscular Hemoglobin 30.4 pg (28.0-33.3); Mean Corpuscular Volume 101.8 fL (83.0-100.0); Mean Platelet Volume 9.7 fL (9.4-12.4); Platelet Count 175 K/mcL (140-400); Red Blood Count 3.88 M/mcL (4.19-5.50); Red Cell Distribution Width 17.2 % (11.5-14.5)
--- NOTE | 2018-03-19 09:01 | Internal Med Progress Note ---
Hospitalist Progress Note - Encounter Date of Encounter: 03/19/18 Time of Encounter: 11:00 - Subjective Interval History: no chest pain, dyspnea or dizziness INR 6.7 --> 3.7 on 2 l/nc no orthopnea Abd US negative for cholecystitis - Exam Vitals: Temp Pulse Resp BP Pulse Ox 97.5 F L 55 16 76/55 98 03/19/18 07:20 03/19/18 07:20 03/19/18 07:20 03/19/18 07:20 03/19/18 07:20 Exam: awake, alert, no distress no icterus moist oral mucosa S1, S2, no MRG Decreased breath sounds at bases 2-3+ LE edema Soft, distended with some ascites, NT, no guarding or rebound No dysarthria, no facial droop normal mood and behavior - Assessment and Plan (1) Anasarca Current Visit: Yes Status: Acute (2) CHF (congestive heart failure) Current Visit: Yes Status: Acute (3) COPD (chronic obstructive pulmonary disease) Current Visit: Yes Status: Chronic (4) Type II diabetes mellitus Current Visit: Yes Status: Chronic (5) Acute exacerbation of chronic obstructive airways disease Current Visit: No Status: Acute (6) Acute exacerbation of congestive heart failure Current Visit: No Status: Acute (7) HTN (hypertension) Current Visit: No Status: Chronic - Summary of Assessment and Plan Summary of Assessment and Plan: 62M with cardiomyopathy EF 20-25%, coronary artery disease, s/p AICD placement, diabetes, hypertension, COPD and chronic respiratory failure on 2 L nasal cannula, chronic pancreatitis presented to the ER due to dyspnea, orthopnea, lower extremity edema and 18 pounds weight gain without chest pain or palpitations. # Volume overload / anasarca - unclear situation. His S/S/baseline EF suggested left heart failure with Randa due to possible cardiorenal syndrome (Cr. 0.7 --> 1.3). He received one dose of Lasix 40 mg IV followed by hypotension for which he received IVF (1750 ml) with overall mild pre-enal azotemia and ? contraction alkalosis. Clinically his symptoms have improved after Lasix followed by IV fluids, and is able to lie flat for me without orthopnea and dyspnea. That being said, his weight gain, ascites and peripheral edema suggest volume overload. Abd US suggests CLD. Could this be right heart failure and cardiac ascites with right sided pleural effusion? Could elevated INR be due to liver congestion from right heart failure ? # Shock - hypotension, lactic acid of 4.2 on admission and cold extremities suggested shock, though lactic acidosis could be due to metformin as well and has resolved. The etiology of shock could be cardiogenic (weight gain, reduced EF) or septic (GNR UTI) or mixed. Cholecystitis ruled out by US and abdominal exam. Dpubt PE due to supratherapeutic INR. No confusion during my assessment. - if decompensates overnight based on bedside clinical assessment, broaden antibiotics, start low dose norepinephrine and dobutamine gtt # HFrEF, POA - possible acute decompensation - considering possibility of shock, will hold beta sage - hold Lasix at the moment due to low BP and unclear picture - cont lisinopril for afterload reduction despite mild RANDA for now - check echocardiogram, assess right heart function - cardiology consult in AM, to consider right heart cath # CAD s/p high risk PCI 03/2017 - Cont Plavix - No chest pain, initial EKG without ischemia - Initial troponin 0.05, check a second one # Hx LV mural thrombus: - Supratherapeutic INR on admission treated with vitamin K, now therapeutic INR - Resume Coumadin tomorrow if no procedures planned # GNR UTI - cont ceftriaxone - follow cultures # COPD: stable, no exacerbation, cont nebs # RANDA: can't rul eout cardiorenal, avoid nephrotoxic # DM2: SSI # VTE prophylaxis: therapeutic INR - Time Spent with Patient Total time spent is greater than 50% in coordination of care (as documented) at patient's floor/unit and/or counseling patient: Internal Medicine: Result - Labs CBC & Chem 7: 03/19/18 08:49 03/19/18 08:49 - ABG Interpretation ABG results: PT/INR, D-dimer PT 69.7 Seconds (9.4-12.1) H* 03/19/18 04:56 Consult Discharge Plan - Plan Referrals: Zackary Hale MD [Primary Care Provider] - (3) COPD (chronic obstructive pulmonary disease) 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 - Other emphysema (4) Type II diabetes mellitus Qualifiers: Diabetes mellitus nursing home insulin use: without intermission coordinator use Diabetes mellitus complication status: with circulatory complication Diabetes mellitus complication detail: with other circulatory complications Qualified Code(s): E11.59 - Type 2 diabetes mellitus with other circulatory complications (6) Acute exacerbation of congestive heart failure Qualifiers: Heart failure type: systolic Qualified Code(s): I50.23 - Acute on chronic systolic (congestive) heart failure (7) HTN (hypertension) Qualifiers: Hypertension type: essential hypertension Qualified Code(s): I10 - Essential (primary) hypertension
[2018-03-19 09:05] LABS: INR 3.7; Prothrombin Time 41.5 Seconds (9.4-12.1)
[2018-03-19 09:20] LABS: Alanine Aminotransferase 13 Units/L (7-52); Albumin 3.8 g/dL (3.5-5.7); Albumin/Globulin Ratio 1.5 (1.1-2.2); Alkaline Phosphatase 77 Units/L (34-104); Aspartate Amino Transferase 13 Units/L (13-39); BUN/Creatinine Ratio 29 (6-26); Bilirubin,Total 0.7 mg/dL (0.3-1.0); Blood Urea Nitrogen 40 mg/dL (8-23); Calcium 8.5 mg/dL (8.6-10.3); Carbon Dioxide 32 mEq/L (23-29); Chloride 106 mEq/L (98-107); Globulin 2.5 g/dL (2.4-3.5); Glucose 117 mg/dL (70-105); Osmolality,Calculated 295 (280-300); Potassium 4.1 mEq/L (3.5-5.1); Sodium 137 mEq/L (136-145); Total Protein 6.3 g/dL (6.4-8.9); eGFR For Non-African Americans 53 (> 60)
[2018-03-19] MEDS: Cholestyramine 4 GM POWD.PACK PO SCH ×2 (10:31→20:22)
[2018-03-19] MEDS: Tiotropium 18 MCG inhalation IH SCH (10:32)
[2018-03-19] MEDS: ZETIA 10 MG PO SCH (10:39)
[2018-03-19] MEDS: Metoprolol XL (24 HR) Succ 25 MG TAB.ER.24H PO SCH (10:40)
[2018-03-19] MEDS: cefTRIAXone 1,000 MG in Water for inj. (sterile) 20 ML 10 ML IVP SCH (13:55)
[2018-03-19] MEDS: Perphenazine 8 MG TABLET PO SCH (20:22)
[2018-03-19] MEDS: Nystatin Cream 15 GM TUBE TP SCH (23:56)
[2018-03-20 06:01] LABS: INR 1.4; Prothrombin Time 16.3 Seconds (9.4-12.1)
[2018-03-20] MEDS: Tiotropium 18 MCG inhalation IH SCH (08:00)
[2018-03-20 08:07] LABS: Hematocrit 40.2 % (37.5-50.1); Hemoglobin 12.3 g/dL (12.9-16.9); Mean Corpuscular HGB Conc 30.6 g/dL (31.6-35.5); Mean Corpuscular Hemoglobin 30.8 pg (28.0-33.3); Mean Corpuscular Volume 100.5 fL (83.0-100.0); Mean Platelet Volume 9.9 fL (9.4-12.4); Platelet Count 173 K/mcL (140-400)
[2018-03-20 08:23] LABS: BUN/Creatinine Ratio 30 (6-26); Blood Urea Nitrogen 39 mg/dL (8-23); Calcium 8.7 mg/dL (8.6-10.3); Carbon Dioxide 32 mEq/L (23-29); Chloride 101 mEq/L (98-107); Glucose 135 mg/dL (70-105); Magnesium 2.2 mg/dL (1.6-2.6); Osmolality,Calculated 297 (280-300); Potassium 4.5 mEq/L (3.5-5.1); Sodium 138 mEq/L (136-145); eGFR For Non-African Americans 56 (> 60)
[2018-03-20] MEDS: Cholestyramine 4 GM POWD.PACK PO SCH ×2 (09:56→20:42)
[2018-03-20] MEDS: ZETIA 10 MG PO SCH (09:57)
[2018-03-20] MEDS: Nystatin Cream 15 GM TUBE TP SCH ×2 (09:58→21:39)
--- NOTE | 2018-03-20 11:50 | Internal Med Progress Note ---
Hospitalist Progress Note - Encounter Date of Encounter: 03/20/18 Time of Encounter: 09:00 - Subjective Interval History: feeling much better than yesterday looks better too, able to stand up on his own no chest pain, dyspnea or dizziness INR 6.7 --> 1.4 on 2 l/nc - Exam Vitals: Temp Pulse Resp BP Pulse Ox 97.8 F 82 16 118/74 100 03/20/18 07:42 03/20/18 07:42 03/20/18 08:00 03/20/18 07:42 03/20/18 08:00 Exam: awake, alert, no distress, sitting in chair no icterus moist oral mucosa JVP difficult to assess due to body habitus S1, S2, no MRG Good breath sounds, no rales or wheezing 3+ LE edema with clear fluid filled blisters Soft, distended with ascites, NT, no guarding or rebound No dysarthria, no facial droop normal mood and behavior - Assessment and Plan (1) Anasarca Current Visit: Yes Status: Acute (2) CHF (congestive heart failure) Current Visit: Yes Status: Acute (3) COPD (chronic obstructive pulmonary disease) Current Visit: Yes Status: Chronic (4) Type II diabetes mellitus Current Visit: Yes Status: Chronic (5) Acute exacerbation of chronic obstructive airways disease Current Visit: No Status: Acute (6) Acute exacerbation of congestive heart failure Current Visit: No Status: Acute (7) HTN (hypertension) Current Visit: No Status: Chronic - Summary of Assessment and Plan Summary of Assessment and Plan: 62M with cardiomyopathy EF 20-25%, coronary artery disease, s/p AICD placement, diabetes, hypertension, COPD and chronic respiratory failure on 2 L nasal cannula, chronic pancreatitis presented to the ER due to dyspnea, orthopnea, lower extremity edema and 18 pounds weight gain without chest pain or palpitations. # Volume overload / anasarca - unclear situation. His S/S/baseline EF suggested left heart failure with RANDA due to possible cardiorenal syndrome (Cr. 0.7 --> 1.3) on admission. He received one dose of Lasix 40 mg IV followed by hypotension for which he received IVF (1750 ml). Clinically he improved after Lasix followed by IV fluids , and is able to lie flat without orthopnea and dyspnea. That being said, his weight gain, ascites and peripheral edema suggest volume overload. Abd US suggests CLD. Could this be right heart failure and cardiac ascites with right sided pleural effusion and elevated INR due to liver congestion? # Shock, resolved - hypotension, lactic acid of 4.2 on admission and cold extremities suggested shock, though lactic acidosis could be due to metformin as well and has resolved. The etiology of shock could have been cardiogenic (weight gain, reduced EF) or septic (UTI) or mixed. Cholecystitis ruled out by US and abdominal exam. Doubt PE due to supratherapeutic INR. No confusion during my assessment. # HFrEF, POA - possible acute decompensation - considering initial shock, will hold beta sage, and consider starting gradually on 03/21 if stable - hold Lasix at the moment due to low BP and unclear picture - cont lisinopril for afterload reduction - check echocardiogram, assess right heart function - cardiology consult requested to consider right heart cath and guide management ; if no procedure planned, will restart Coumadin # CAD s/p high risk PCI 03/2017 - Cont Plavix - No chest pain, initial EKG without ischemia, serial troponin negative # Hx LV mural thrombus: - Supratherapeutic INR on admission treated with vitamin K, now sub-therapeutic INR - Resume Coumadin if no procedures planned y cardiology # Citrobacter UTI - cont ceftriaxone # COPD: stable, no exacerbation, cont nebs # RANDA: can't rule out cardiorenal, avoid nephrotoxic # DM2: SSI # VTE prophylaxis: start heparin SubQ intil INR is therapeutic again - Time Spent with Patient Total time spent is greater than 50% in coordination of care (as documented) at patient's floor/unit and/or counseling patient: Greater than 35 minutes Internal Medicine: Result - Labs CBC & Chem 7: 03/20/18 07:55 03/20/18 07:55 Labs: Short CBC 03/20/18 Range/Units 07:55 WBC 7.6 (4.3-11.1) K/mcL Hgb 12.3 L (12.9-16.9) g/dL Hct 40.2 (37.5-50.1) % Plt Count 173 (140-400) K/mcL BMP 03/20/18 07:55 Sodium 138 Potassium 4.5 Chloride 101 Carbon Dioxide 32 H BUN 39 H Creatinine 1.30 Glucose 135 H Calcium 8.7 Cardiac Enzymes 03/20/18 Range/Units 00:44 Troponin I 0.04 H* (< 0.04) ng/mL - ABG Interpretation ABG results: PT/INR, D-dimer PT 16.3 Seconds (9.4-12.1) H D 03/20/18 05:03 - Impressions Impressions Abdomen Ultrasound 03/19/18 11:00 IMPRESSION: No ultrasound evidence of acute cholecystitis. Evidence of hepatic steatosis and ascites. Chronic liver disease is suspected. D/ / Ezra Contreras MD / Ezra Contreras MD Interpreting Provider: Ezra Contreras MD Consult Discharge Plan - Plan Referrals: Zackary Hale MD [Primary Care Provider] - (3) COPD (chronic obstructive pulmonary disease) 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 - Other emphysema (4) Type II diabetes mellitus Qualifiers: Diabetes mellitus intermediate designer insulin use: without mcfp use Diabetes mellitus complication status: with circulatory complication Diabetes mellitus complication detail: with other circulatory complications Qualified Code(s): E11.59 - Type 2 diabetes mellitus with other circulatory complications (6) Acute exacerbation of congestive heart failure Qualifiers: Heart failure type: systolic Qualified Code(s): I50.23 - Acute on chronic systolic (congestive) heart failure (7) HTN (hypertension) Qualifiers: Hypertension type: essential hypertension Qualified Code(s): I10 - Essential (primary) hypertension
[2018-03-20] MEDS: *HR* Heparin 5,000 UNIT/ML VIAL SQ SCH ×2 (13:41→20:42)
[2018-03-20] MEDS: cefTRIAXone 1,000 MG in Water for inj. (sterile) 20 ML 10 ML IVP SCH (13:42)
--- NOTE | 2018-03-20 14:20 | Cardiology Consult Note ---
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 Suspect possible fluid/dietary non-compliance, also non-compliant with calling cardiology with wieght gain. . Reported 40 lb weight gain. -Hx of ICMP. LHC at [facility] 03/2017--s/p high risk PCI to prox and mid LAD and PTCA of diag, and PCI to the OM. -TTE 01/2018 with LVEF 20-25%, also RV not well visualized, appears hypokinetic. -Currently net negative 200ml. Lasix had been on hold due to hypotension. BP mildly improved currently. -On BB (currently on hold), and marilynn-inhibitor. -BNP 2200s. Chest x-ray with vascular congestion, without overt edema. -Will hold MARILYNN-i given marginal BP. Consider resuming BB and MARILYNN-i prior to discharge. -Will resume IV lasix at 20mg BID. Can consider inotropic support if unable to diuresis with marginal BPs. -Strict I&Os, daily weights (Standing), and Na/fluid restriction diet. -At this point, do not suspect RHC would be of benefit. -Will continue to monitor. (2) Elevated troponin Current Visit: No Status: Acute Per cardiology: -Troponins 0.05, 0.04 in the setting of CHF. -Denies chest pain. -ECG with no acute ichemic changes. -On plavix, coumadin, BB(currently held), statin in outpatient setting. -Recent TTE 01/2018 with LVEF unchanged from previous. -Do not suspect NSTEMI, suspect demand ischemia related to above. NO cardiac rehab consult warranted. (3) CAD (coronary artery disease) Current Visit: Yes Status: Chronic Per cardiology: -Known CAD s/p PCI [facility] 03/2017. -STRESS TEST 01/25/18: Perfusion defect in the inferolateral wall representing prior infarct. Medium sized, moderate- severe intensity partially fixed defect in the mid-distal anterior wall, apex, and apical inferior wall with some areas worsening with stress, Findings likely represent [place]-infarct ischemia. AT that time, stress was thought to correlate to previous C. -ON plavix, statin, BB. Not on asa to prevent triple therapy. Qualifiers: Coronary Disease-Associated Artery/Lesion type: [place] artery [place] vs. transplanted heart: [place] heart Associated angina: without angina Qualified Code(s): I25.10 - Atherosclerotic heart disease of [place] coronary artery without angina pectoris (4) LV (left ventricular) mural thrombus Current Visit: Yes Status: Chronic Per cardiology: -Known history of LV thrombus. -Was noted on TTE 07/2017. -Has been on coumdain for >3 months. -TTE 01/2018 without evidence of LV thrombus. -With resolution of LV thrombus per echocardiogram and concern for possible non- compliance (INR 6.7 on admission). Can consider discontinuation of coumadin prior to discharge. Will decide pending clinical course. -Will continue to monitor. Discussion w patient/family: The assessment and plan as outlined above was discussed with the patient who expressed understanding and agreement. All questions were answered. Thank you for involving us in the care of your patient. Please call with any questions. Discussed and reviewed with . History of Present Illness Consult date: 03/19/18 Requesting physician: Blayne Jean Baptiste Consult reason: CHF Chief complaint: increased abdominal girth History of present illness: Mr. Emmanuel is a 62 year old male with PMHx significant for ischemic cardiomyopathy with LVEF ~15-20%, AICD, LV thrombus on Coumadin, CAD s/p PCI, COPD, HTN, and DMII who presented to [facility] with complaints of increased abdominal girth and wieght gain. Patient states his weight is up about 42 pounds at home. Denies shortness of breath. Denies lower extremity edema. Denies ICD shocks. Denies chest pain. Denies bleeding or blood loss. Patient reports complaince with fluid, sodium restriction and daily weights at home. Past Med Surg Social Fam HX - Past Medical History Attestation: Yes The following information was validated with the patient. Source: patient, old records reviewed Medical history: cancer, cardiomyopathy, COPD, coronary artery disease, diabetes , hyperlipidemia, hypertension, myocardial infarction, other Additional medical history: pancreatitis Psychiatric history: no psych history - Past Surgical History Surgical History: angioplasty/stent, cataract, herniorrhaphy, other Additional surgical history: x3 stents - Social History Smoking Status: Current every day smoker Smokeless Tobacco Status: No Alcohol use: none Drug use: none - Family History Father Adopted: No Living Status: Age at : 64 Cause of : lung cancer Hx Family Cardiac Disorders: No Hx Family Respiratory Disorders: Yes Hx Family Cancer: Yes Hx Family GI Disorders: No Hx Family Endocrine Disorder: No Hx Family Neuromuscular Disorders: No Hx Family Neurologic Disorders: No Hx Family HEENT Disorders: No Hx Family Autoimmune Disorders: No Hx Family Medical Disorders: Yes Mother Adopted: No Family Member Ethnicity: Non- Living Status: Hx Family Cardiac Disorders: No Hx Family Respiratory Disorders: Yes Hx Family Cancer: Yes Hx Family GI Disorders: No Hx Family Endocrine Disorder: Yes Hx Family Neuromuscular Disorders: No Hx Family Neurologic Disorders: No Hx Family HEENT Disorders: No Hx Family Autoimmune Disorders: No Medications and Allergies Albuterol Sulfate [Albuterol Inhaler] 2 puff IH Q4HR PRN 05/17/15 [History] Ezetimibe [Zetia] 10 mg PO DAILY 05/17/15 [History] Metformin HCl [Glucophage] 1,000 mg PO BID 05/17/15 [History] Tiotropium [Spiriva] 18 mcg IH DAILY 05/17/15 [History] Clopidogrel [Plavix] 75 mg PO DAILY 10/27/17 [History] Lisinopril [Zestril] 2.5 mg PO DAILY 10/27/17 [History] Metoprolol Succinate [Toprol Xl] 25 mg PO DAILY 10/27/17 [History] Lipase/Protease/Amylase [Creon Dr 12,000 Units Capsule] 1 cap PO BID 11/10/17 [ History] Promethazine [Phenergan] 25 mg PO BID PRN 11/10/17 [History] Cholestyramine 4 g PO BID 01/24/18 [History] Perphenazine [Trilafon] 8 mg PO HS 01/24/18 [History] Furosemide [Lasix] 40 mg PO DAILY #30 tablet 02/04/18 [Rx] Tamsulosin [Flomax] 0.4 mg PO DAILY #30 capsule 02/04/18 [Rx] Warfarin Sodium [Warfarin Sodium] 2.5 mg PO HS 03/17/18 [History] Warfarin Sodium [Warfarin Sodium] 6 mg PO HS 03/17/18 [History] 3 Allergy/AdvReac Type Severity Reaction Status Date / Time loxapine [From Loxitane] Allergy See Verified 01/24/18 19:21 Comments betamethasone AdvReac Hives Verified 01/24/18 19:21 [From Lotrisone] clotrimazole [From Lotrisone] AdvReac Hives Verified 01/24/18 19:21 Sulfa (Sulfonamide AdvReac Hives Verified 01/24/18 19:21 Antibiotics) All Systems Review: The remainder of the systems were reviewed and are negative - Constitutional Constitutional: weight gain - Cardiovascular Cardiovascular: as per HPI Physical Examination Vital Signs Temperature 97.6 F 03/17/18 12:10 Pulse Rate 93 03/17/18 12:10 Respiratory Rate 23 03/17/18 12:10 Blood Pressure 115/68 03/17/18 12:10 O2 Sat by Pulse Oximetry 98 03/17/18 12:10 Temperature 97.8 F 03/20/18 07:42 Pulse Rate 82 03/20/18 07:42 Respiratory Rate 16 03/20/18 08:00 Blood Pressure 118/74 03/20/18 07:42 O2 Sat by Pulse Oximetry 100 03/20/18 08:00 Oxygen Delivery Oxygen Delivery Nasal Cannula General: Conversant, No Apparent Distress HEENT: Atraumatic, Normocephaly, Mucus Membranes Moist Neck: No JVD, Normal carotid pulses Cardiac: Reg Rate and Rhythm, Normal S1 and S2, No Murmur Lungs: Normal Breath Sounds, No Wheeze, Rales, Rhonchi Neuro: Alert and responsive, No focal deficits noted Abdomen: Non-Tender, Other (Somewhat firm, distended) Skin: No rashes noted on visualized skin Musculoskeletal: No Chest Wall Tenderness Extremities: No Clubbing, No Cyanosis, No Edema, Normal Pulses Results 03/20/18 07:55 03/20/18 07:55 Lab Results Active Medications Acetaminophen (Tylenol) 650 mg PO Q6HR PRN PRN Reason: Mild Pain/Fever Stop: 09/16/18 16:11 Albuterol Sulfate (Albuterol Inhaler) 2 puff IH [id number] PRN PRN Reason: SHORTNESS OF BREATH Stop: 09/16/18 17:03 Lipase/Protease/Amylase (Creon Dr 6,000 Units Capsule) 2 each PO BIDWM CHARMAINE Stop: 09/16/18 21:01 Last Admin: 03/20/18 09:55 Dose: 2 each Cholestyramine Resin (Cholestyramine) 4 gm PO BID [facility] Stop: 09/16/18 21:01 Last Admin: 03/20/18 09:56 Dose: 4 gm Clopidogrel Bisulfate (Plavix) 75 mg PO DAILY [facility] Stop: 09/17/18 09:01 Last Admin: 03/20/18 09:55 Dose: 75 mg Furosemide (Lasix) 20 mg IVP BID [facility] Stop: 09/19/18 14:31 Heparin Sodium (Porcine) (Heparin) 5,000 unit SQ Q8HCO [facility] Stop: 09/19/18 14:01 Last Admin: 03/20/18 13:41 Dose: 5,000 unit Ceftriaxone Sodium 1,000 mg/ (Sterile Water) 10 mls @ 600 mls/hr IVP Q24H [facility] Stop: 09/17/18 14:01 Last Admin: 03/20/18 13:42 Dose: 600 mls/hr Lisinopril (Zestril) 2.5 mg PO DAILY [facility] PRN Reason: Protocol Stop: 09/17/18 09:01 Last Admin: 03/20/18 09:55 Dose: 2.5 mg Metoprolol Succinate (Toprol Xl) 25 mg PO DAILY [facility] Stop: 09/17/18 09:01 Last Admin: 03/19/18 10:40 Dose: Not Given Naloxone HCl (Narcan) 0.4 mg IVP Q2MIN PRN PRN Reason: SEE COMMENTS Stop: 09/16/18 16:11 Nystatin (Mycostatin Cream) 1 appl TP BID [facility] Stop: 09/18/18 21:46 Last Admin: 03/20/18 09:58 Dose: 1 appl Perphenazine (Trilafon) 8 mg PO HS [facility] Stop: 09/16/18 21:01 Last Admin: 03/19/18 20:22 Dose: 8 mg Pharmacy Profile Note (Patient Taking Own Medication) 1 each PO DAILY [facility] Stop: 09/17/18 09:01 Last Admin: 03/20/18 09:57 Dose: Not Given Promethazine HCl (Phenergan) 25 mg PO BID PRN PRN Reason: Nausea Stop: 09/16/18 17:03 Tamsulosin HCl (Flomax) 0.4 mg PO DAILY [facility] PRN Reason: Protocol Stop: 09/17/18 09:01 Last Admin: 03/20/18 09:55 Dose: 0.4 mg Tiotropium Sig[place] (Spiriva) 18 mcg IH DAILY CHARMAINE Stop: 09/17/18 09:01 Last Admin: 03/20/18 08:00 Dose: 18 mcg Warfarin Sodium (Coumadin Perpt) 1 each PO DAILY@1800 PRN PRN Reason: SEE COMMENTS Stop: 09/16/18 18:01 Warfarin Sodium (Coumadin) 9 mg PO 1800 ONE Stop: 03/20/18 18:01 Laboratory Tests 03/17/18 03/17/18 03/19/18 12:32 12:32 08:49 Hgb INR Creatinine 1.36 H Troponin I 0.05 H* B-Natriuretic Peptide 2355 H 03/20/18 03/20/18 03/20/18 00:44 05:03 07:55 Hgb 12.3 L INR 1.4 D Creatinine Troponin I 0.04 H* B-Natriuretic Peptide 03/20/18 07:55 Hgb INR Creatinine 1.30 Troponin I B-Natriuretic Peptide - Imaging and Cardiology Chest Xray: report reviewed Stress Test: report reviewed Echo: report reviewed Cardiac cath: report reviewed - EKG Interpretation EKG results cardiology: personally reviewed (ECG with SR, HR 88, PVC noted.), other (Telemetry reviewed with average HR previous 12 hours noted to be 82, SR. Intermittent paced rhythm noted. PVCs and PACs noted.) Consult Discharge Plan - Plan [facility]: [facility] [place] [Primary Care Provider] - <Liv Engle - Last Filed: 03/20/18 15:45> Date of Encounter: 03/20/18 - Attending Attestation I personally interviewed and examined this patient. I have reviewed all the pertinent clinical, radiologic and laboratory findings. I agree with the findings, assessment and plan as outlined by the nurse practitioner with the following additional comments: 62 M presenting with acute on chronic systolic CHF. Has known ICM with severe LV systolic dysfunction, EF 20-25% and is s/p AICD. Echo recently reported hypokinetic RV. History taking suggests noncompliance with diet and medications. Comfortable at bedside in NAD. Vital signs with borderline BPs. Afebrile. Exam with mild BLE edema, abdominal distention/edema. CXR with pulmonary congestion. BNP elevated. Troponins flat and adynamic. No acute ECG findings. Impression/Plan: 1. Probable biventricular heart failure - Echo recently suggested RV hypokinesis and has known ICM. Patient complaints of abdominal distention. Mild elevation of Tbili noted. At this time, we recommend gentle diuresis with IV lasix. If BP does not cooperate, may need to consider inotropic therapy to help guide diuresis. Right heart catheterization does not appear indicated at this time. 2. History of LV thrombus - Noted on TTE 07/2017. No residual thrombus documented on TTE in January 2018. Awaiting repeat echo. May consider stopping coumadin given concern for noncompliance - INR supratherapeutic on admission. 3. CAD - continue plavix, statin (last C with PCI [facility] 03/2017). On low dose BB. Assessment and Plan Discussion w patient/family: The assessment and plan as outlined above was discussed with the patient and/or family members who expressed understanding and agreement. All questions were answered. Thank you for involving us in the care of your patient. Please call with any questions. History of Present Illness History of present illness: Mr. Emmanuel is a 62 year old male All Systems Review: The remainder of the systems were reviewed and are negative Results 03/20/18 07:55 03/20/18 07:55 Lab Results 03/20/18 03/20/18 03/20/18 00:44 05:03 07:55 WBC 7.6 Hgb 12.3 L Hct 40.2 Plt Count 173 INR 1.4 D Sodium Potassium Chloride Carbon Dioxide BUN Creatinine Glucose Calcium Magnesium Troponin I 0.04 H* 03/20/18 07:55 WBC Hgb Hct Plt Count INR Sodium 138 Potassium 4.5 Chloride 101 Carbon Dioxide 32 H BUN 39 H Creatinine 1.30 Glucose 135 H Calcium 8.7 Magnesium 2.2 Troponin I
[2018-03-20] MEDS: Furosemide 20 MG/2 ML VIAL IVP SCH ×2 (15:52→20:42)
[2018-03-20] MEDS ORDERED: *HR* Warfarin 3 MG TABLET PO ONE (18:00)
[2018-03-20] MEDS: Perphenazine 8 MG TABLET PO SCH (20:42)
[2018-03-21 05:21] LABS: INR 1.3; Prothrombin Time 14.3 Seconds (9.4-12.1)
[2018-03-21] MEDS: *HR* Heparin 5,000 UNIT/ML VIAL SQ SCH ×3 (05:28→21:28)
[2018-03-21 05:35] LABS: BUN/Creatinine Ratio 33 (6-26); Blood Urea Nitrogen 34 mg/dL (8-23); Calcium 8.8 mg/dL (8.6-10.3); Carbon Dioxide 35 mEq/L (23-29); Chloride 102 mEq/L (98-107); Glucose 154 mg/dL (70-105); Magnesium 2.1 mg/dL (1.6-2.6); Osmolality,Calculated 301 (280-300); Potassium 4.3 mEq/L (3.5-5.1); Sodium 140 mEq/L (136-145); eGFR For Non-African Americans > 60 (> 60)
[2018-03-21] MEDS: Tiotropium 18 MCG inhalation IH SCH (07:43)
[2018-03-21] MEDS: Nystatin Cream 15 GM TUBE TP SCH ×2 (09:07→21:29)
[2018-03-21] MEDS: Cholestyramine 4 GM POWD.PACK PO SCH ×2 (09:07→21:28)
[2018-03-21] MEDS: Furosemide 20 MG/2 ML VIAL IVP SCH ×2 (09:07→16:48)
[2018-03-21] MEDS: ZETIA 10 MG PO SCH (09:08)
--- NOTE | 2018-03-21 09:50 | Cardiology Progress Note ---
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 Suspect possible fluid/dietary non-compliance, also non-compliant with calling cardiology with weight gain. Reported 40 lb weight gain. -BNP 2200s. Chest x-ray with vascular congestion, without overt edema. -Hx of ICMP. last LHC at [facility] 03/2017--s/p high risk PCI to prox and mid LAD and PTCA of diag, and PCI to the OM. -TTE 01/2018 with LVEF 20-25%, also RV not well visualized, appears hypokinetic. - TTE this admission sjows EF 20-25%, severely dilated LV. Onward not well visualized. Moderatley reduced RV function. -Currently net negative 1240ml. -AceI on hold to allow room for IV diuretic. -Continue lasix. Out-put improved. -Strict I&Os, daily weights (Standing), and Na/fluid restriction diet. -At this point, do not suspect RHC would be of benefit. -Will continue to monitor. (2) LV (left ventricular) mural thrombus Current Visit: Yes Status: Chronic Per cardiology: -Known history of LV thrombus. -Was noted on TTE 07/2017. -TTE this admit LV apex not well visualized. I will order TTE with definity. -Has been on coumdain for >3 months. INR 6.7 on admit. Concern for non- compliance with monitoring and dosing. Concern for patients education status, inability to follow monitoring and dose change direction. -TTE 01/2018 without evidence of LV thrombus. -With resolution of LV thrombus per echocardiogram and concern for possible non- compliance (INR 6.7 on admission). Can consider discontinuation of coumadin prior to discharge. Will decide pending clinical course. -Will continue to monitor. (3) Elevated INR Current Visit: Yes Status: Acute INR back to normal. Goal INR 2.0-3.). Consider holding coumadin at d/c. (4) CAD (coronary artery disease) Current Visit: Yes Status: Chronic Per cardiology: -Known CAD s/p PCI [facility] 03/2017. -STRESS TEST 01/25/18: Perfusion defect in the inferolateral wall representing prior infarct. Medium sized, moderate- severe intensity partially fixed defect in the mid-distal anterior wall, apex, and apical inferior wall with some areas worsening with stress, Findings likely represent [place]-infarct ischemia. AT that time, stress was thought to correlate to previous LHC. -ON plavix, statin, BB. Not on asa to prevent triple therapy. - Denies chest pain. Continue to monitor. EF unchanged. Qualifiers: Coronary Disease-Associated Artery/Lesion type: [place] artery [place] vs. transplanted heart: [place] heart Associated angina: without angina Qualified Code(s): I25.10 - Atherosclerotic heart disease of [place] coronary artery without angina pectoris Discussion w patient/family: The assessment and plan as outlined above was discussed with the patient and/or family members who expressed understanding and agreement. All questions were answered. Thank you for involving us in the care of your patient. Please call with any questions. Subjective Principal diagnosis: acute on chronic CHFrEF Interval history: Mr. Emmanuel is sitting comfortably in the bedside chair. Denies significant SOB this mornig. Denies chest pain. Poor historian. When asked if he could lay flat in the bed he states that he just sat in his chair. Nurse notes he was in bed all night. Objective Vital Signs, Last 4 Hours Temp Pulse Resp BP Pulse Ox 03/21/18 07:47 18 95 03/21/18 07:28 97.8 F 92 18 101/72 95 General: No Apparent Distress, Other (Does not conversate, short responses only) HEENT: Atraumatic, Normocephaly, Mucus Membranes Moist Neck: No JVD, Normal carotid pulses Cardiac: Reg Rate and Rhythm, Normal S1 and S2, No Murmur Lungs: Normal Breath Sounds, No Wheeze, Rales, Rhonchi Neuro: Alert and responsive, No focal deficits noted Abdomen: Soft, Non-Tender, Other (Abdomen distended) Skin: Other (BLE extremities with redness and blisters. ) Musculoskeletal: No Chest Wall Tenderness Extremities: No Clubbing, No Cyanosis, Normal Pulses, Other (1+ BLE edema) Results 03/20/18 07:55 03/21/18 04:23 Lab Results 03/21/18 03/21/18 04:23 04:23 INR 1.3 Sodium 140 Potassium 4.3 Chloride 102 Carbon Dioxide 35 H BUN 34 H Creatinine 1.04 Glucose 154 H Calcium 8.8 Magnesium 2.1 - Imaging and Cardiology Echo: report reviewed - EKG Interpretation EKG results cardiology: personally reviewed Consult Discharge Plan - Plan Referrals: Zackary Hale MD [Primary Care Provider] -
--- NOTE | 2018-03-21 12:30 | Internal Med Progress Note ---
Hospitalist Progress Note - Encounter Date of Encounter: 03/21/18 Time of Encounter: 12:28 - Subjective Interval History: Pt asking to go home but still requiring oxygen at 2L NC. He states he is on oxygen at home however, he is on 2L NC as needed at home. He denies chest pain. He still has 4+ edema and B/L LE blisters. Still has some orthopnea. He denies cough or sputum. Denies fever, chills, N/V or diarrhea. - Exam Vitals: Temp Pulse Resp BP Pulse Ox 98.5 F 86 18 108/67 100 03/21/18 11:42 03/21/18 11:42 03/21/18 11:42 03/21/18 11:42 03/21/18 11:42 Exam: awake, alert, no distress, sitting in chair no icterus moist oral mucosa JVP difficult to assess due to body habitus S1, S2, no MRG Good breath sounds, no rales or wheezing 3+ LE edema with clear fluid filled blisters Soft, distended with ascites, NT, no guarding or rebound No dysarthria, no facial droop normal mood and behavior - Assessment and Plan (1) Acute on chronic systolic (congestive) heart failure Current Visit: Yes Status: Acute Assessment and Plan: Cardiology evaluated the pt and resumed Lasix 20 mg IV BID. Acute on chronic CHF; reported NYHA class III symptoms on admit. Suspect possible fluid/dietary non-compliance, also non-compliant with calling cardiology with weight gain. Reported 40 lb weight gain. S/P LHC at [facility] 03/2017-- s/p high risk PCI to prox and mid LAD and PTCA of diag, and PCI to the OM. TTE January 2018 abnormal. Holding BB and MARILYNN inhibitor. Cardiology would like those resumed at discharge. Strict I&Os, daily weights (Standing), and Na/fluid restriction diet. (2) Anasarca Current Visit: Yes Status: Acute Assessment and Plan: Likely multifactorial, from volume overload due to decompensated CHF and or liver cirrhosis. EF of 20 -25%, RANDA on admission with possible cardiorenal syndrome. He developed hypotension following Lasix 40 mg IV x one dose. He ws given fluids and clinically improved. Abdominal US showing cirrhotic liver disease. Pt is back on Lasix 20 mg IV BID and will recommend continue for few more days with close monitoring of his BP/ fluid balance and daily weights. (3) Type II diabetes mellitus Current Visit: Yes Status: Chronic Assessment and Plan: Glucose has been stable on SSI. Will continue to monitor. Will check Hgb A1C if not already done. (4) Acute cystitis without hematuria Current Visit: Yes Status: Acute Assessment and Plan: acute cystitis due to Citrobacter Freundii. Pt has been on Rocephin. Will switch to Omnicef. (5) LV (left ventricular) mural thrombus Current Visit: Yes Status: Chronic Assessment and Plan: Known history of LV thrombus. TTE 07/2017. Has been on Coumadin for > 3 months. Due to resolution of LV thrombus and pt's possible non-compliance, cardiology considering discontinuing coumadin prior to discharge. (6) CAD (coronary artery disease) Current Visit: Yes Status: Chronic Assessment and Plan: On Plavix and will continue. Last heart cath 2017 at [facility] as described above. (7) HTN (hypertension) Current Visit: No Status: Chronic Assessment and Plan: Hypotensive at the moment so BP meds on hold. (8) COPD (chronic obstructive pulmonary disease) Current Visit: Yes Status: Chronic Assessment and Plan: Continue current respiratory regimen. - Time Spent with Patient Total time spent is greater than 50% in coordination of care (as documented) at patient's floor/unit and/or counseling patient: less than 15 minutes Plan of Care Discussed with: patient Internal Medicine: Result - Labs CBC & Chem 7: 03/20/18 07:55 03/21/18 04:23 Labs: BMP 03/21/18 04:23 Sodium 140 Potassium 4.3 Chloride 102 Carbon Dioxide 35 H BUN 34 H Creatinine 1.04 Glucose 154 H Calcium 8.8 - ABG Interpretation ABG results: PT/INR, D-dimer PT 14.3 Seconds (9.4-12.1) H 03/21/18 04:23 - Impressions Impressions Echocardiogram Limited Views 03/20/18 18:44 Impressions: LVEF 20-25%. Severely dilated left ventricle. LV apex is not well visualized on this study. Definity echo contrast was not used. RV is mildly dilated by basal dimension. Grossly it demonstrates moderate to severe reduction in function. Consider repeat limited study with imaging enhancement for better visualization of the LV apex. Left Ventricular Wall Motion: Rest Echo Findings The apex, apical inferior, mid inferior, basal inferior, apical anterior, mid anterior, basal anterior, apical septal, mid inferior septal, basal inferior septal, apical lateral, mid anterior lateral, basal anterior lateral, mid anterior septal, mid inferior lateral, basal anterior septal and basal inferior lateral [place] were hypokinetic. Findings: Study Quality * Technically adequate exam. ECG Findings * Normal sinus rhythm. Left Ventricle * LVEF 20-25%. * Severely dilated left ventricle. * Definity echo contrast was not used. Right Ventricle * RV is mildly dilated by basal dimension. Grossly it demonstrates moderate to severe reduction in function. Aorta * Normally sized aortic root. Pericardium * There is no pericardial effusion present. Device lead * A device lead was visualized in the right atrium and right ventricle. IVC * The IVC is not dilated. * < 50% respiratory change. Consult Discharge Plan - Plan Referrals: Zackary Hale MD [Primary Care Provider] - (3) Type II diabetes mellitus Qualifiers: Diabetes mellitus advanced analytics associate insulin use: without advanced analytics associate use Diabetes mellitus complication status: with circulatory complication Diabetes mellitus complication detail: with other circulatory complications Qualified Code(s): E11.59 - Type 2 diabetes mellitus with other circulatory complications (6) CAD (coronary artery disease) Qualifiers: Coronary Disease-Associated Artery/Lesion type: [place] artery [place] vs. transplanted heart: [place] heart Associated angina: without angina Qualified Code(s): I25.10 - Atherosclerotic heart disease of [place] coronary artery without angina pectoris (7) HTN (hypertension) Qualifiers: Hypertension type: essential hypertension Qualified Code(s): I10 - Essential (primary) hypertension (8) COPD (chronic obstructive pulmonary disease) 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 - Other emphysema
[2018-03-21] MEDS ORDERED: D5% in Water 1,000 ML IVC PRN (13:05)
[2018-03-21] MEDS ORDERED: *HR* Dextrose 50 % in Water (Syg) 50 ML SYRINGE IVP PRN (13:05)
[2018-03-21] MEDS ORDERED: Dextrose Gel 15 GM/37.5 ML TUBE PO PRN ×2 (13:05)
[2018-03-21] MEDS: cefTRIAXone 1,000 MG in Water for inj. (sterile) 20 ML 10 ML IVP SCH (13:24)
[2018-03-21] MEDS ORDERED: Perflutren Lipid Microsphere 1.3 ML in 0.9 % Sodium Chloride 8.7 ML IVP ONE (13:31)
[2018-03-21 14:20] LABS: Estimated Average Glucose 174 mg/dl; Hemoglobin A1C 7.7 %
[2018-03-21] MEDS: Insulin LISPRO 300 UNITS/3 ML VIAL SQ SCH (16:47)
[2018-03-21] MEDS ORDERED: *HR* Warfarin 4 MG TABLET PO SCH (18:00)
[2018-03-21] MEDS: Perphenazine 8 MG TABLET PO SCH (21:29)
[2018-03-22] MEDS: *HR* Heparin 5,000 UNIT/ML VIAL SQ SCH ×3 (05:26→21:49)
[2018-03-22 05:33] LABS: INR 1.6; Prothrombin Time 18.2 Seconds (9.4-12.1)
[2018-03-22 05:48] LABS: % Iron Saturation 16 % (20-55); Albumin 3.7 g/dL (3.5-5.7); BUN/Creatinine Ratio 31 (6-26); Blood Urea Nitrogen 27 mg/dL (8-23); Carbon Dioxide 35 mEq/L (23-29); Chloride 102 mEq/L (98-107); Glucose 138 mg/dL (70-105); Iron 80 mcg/dL (65-175); Osmolality,Calculated 301 (280-300); Phosphorous 2.9 mg/dL (2.7-4.5); Potassium 4.5 mEq/L (3.5-5.1); Sodium 142 mEq/L (136-145); Transferrin 368 mg/dL (203-362); eGFR For Non-African Americans > 60 (> 60)
[2018-03-22 06:03] LABS: Ferritin 42 ng/mL (20-250)
[2018-03-22 06:08] LABS: Folate 7.1 ng/mL (3.0-16.0)
[2018-03-22] MEDS: Tiotropium 18 MCG inhalation IH SCH (07:44)
[2018-03-22] MEDS: Insulin LISPRO 300 UNITS/3 ML VIAL SQ SCH ×3 (09:12→16:17)
[2018-03-22] MEDS: Furosemide 20 MG/2 ML VIAL IVP SCH ×2 (09:14→15:48)
[2018-03-22] MEDS: Nystatin Cream 15 GM TUBE TP SCH ×2 (09:15→21:50)
[2018-03-22] MEDS: Cholestyramine 4 GM POWD.PACK PO SCH ×2 (09:15→21:50)
[2018-03-22] MEDS: ZETIA 10 MG PO SCH (09:16)
--- NOTE | 2018-03-22 09:45 | Internal Med Progress Note ---
Hospitalist Progress Note - Encounter Date of Encounter: 03/22/18 Time of Encounter: 09:00 - Exam Vitals: Temp Pulse Resp BP Pulse Ox 98.3 F 103 17 102/67 96 03/22/18 07:39 03/22/18 07:39 03/22/18 07:45 03/22/18 07:39 03/22/18 07:45 Exam: awake, alert, no distress, sitting in chair no icterus moist oral mucosa JVP difficult to assess due to body habitus S1, S2, no MRG Good breath sounds, no rales or wheezing 3+ LE edema with clear fluid filled blisters Soft, distended with ascites, NT, no guarding or rebound No dysarthria, no facial droop normal mood and behavior - Assessment and Plan (1) Acute on chronic systolic (congestive) heart failure Current Visit: Yes Status: Acute Assessment and Plan: Pt came in with SOb and bilateral lower extremity edema. Echo showed global hypokinesis with EF 20-25%. Cardiology following. Continue IV lasix BID (2) LV (left ventricular) mural thrombus Current Visit: Yes Status: Chronic Assessment and Plan: History of left ventricular mural thrombus. Was on coumadin at home. Per cardiology most recent echo done on this admission showed resolution of LV thrombus. Cardiology monitoring and want coumadin possibly discontinued prior to discharge. Will follow cardiology recs (3) COPD (chronic obstructive pulmonary disease) Current Visit: Yes Status: Chronic Assessment and Plan: With chronic respiratory failure. Will place him on bronchodilators as needed. Continue O2 supplementation (4) Type II diabetes mellitus Current Visit: Yes Status: Chronic Assessment and Plan: Will place patient on sliding scale insulin. Diabetic diet. Monitor blood sugars. (5) CAD (coronary artery disease) Current Visit: Yes Status: Chronic Assessment and Plan: Continue home medications. Patient not having any chest pain (6) Acute cystitis Current Visit: Yes Status: Acute Assessment and Plan: Urine cultures positive for citrobacter. Continue on ceftriaxone (7) Elevated INR Current Visit: Yes Status: Acute Assessment and Plan: INR was supratherapeutic on admission. Was on coumadin due to LV thrombus. Cardiology following and think coumadin can be discontinued on discharge due to resolution of thrombus on echo (8) Acute kidney injury Current Visit: Yes Status: Acute Assessment and Plan: Patient has acute kidney injury with creatinine of 1.32. Likely 2/2 to poor perfusion from acute CHF. Has improved with iV lasix (9) Lactic acidosis Current Visit: Yes Status: Acute Assessment and Plan: Patient has lactic acidosis with lactic acid level of 4.2. No clear signs of sepsis. Could be related to metformin use in the setting of acute kidney injury. We will follow lactic acid levels. He will receive antibiotics for UTI. DVT Prophylaxis: Is on coumadin - Time Spent with Patient Total time spent is greater than 50% in coordination of care (as documented) at patient's floor/unit and/or counseling patient: Internal Medicine: Result - Labs CBC & Chem 7: 03/20/18 07:55 03/22/18 04:42 Labs: BMP 03/22/18 04:42 Sodium 142 Potassium 4.5 Chloride 102 Carbon Dioxide 35 H BUN 27 H Creatinine 0.87 Glucose 138 H Calcium 9.0 Liver Function 03/22/18 Range/Units 04:42 Albumin 3.7 (3.5-5.7) g/dL - ABG Interpretation ABG results: PT/INR, D-dimer PT 18.2 Seconds (9.4-12.1) H 03/22/18 04:42 - Impressions Impressions Echocardiogram Limited Views 03/20/18 16:56 Impressions: LVEF 20-25%. Severely dilated left ventricle. Severe global left ventricular systolic dysfunction. There is no LV thrombus. Limited study for LV thrombus. Valves not assessed. Left Ventricular Wall Motion: Rest Echo Findings The apex, apical inferior, mid inferior, basal inferior, apical anterior, mid anterior, basal anterior, apical septal, mid inferior septal, basal inferior septal, apical lateral, mid anterior lateral, basal anterior lateral, mid anterior septal, mid inferior lateral, basal anterior septal and basal inferior lateral [place] were hypokinetic. Findings: Study Quality * Technically adequate exam. ECG Findings * Normal sinus rhythm. Left Ventricle * LVEF 20-25%. * Severely dilated left ventricle. * Severe global left ventricular systolic dysfunction. * There is no LV thrombus. Consult Discharge Plan - Plan Referrals: Zackary Hale MD [Primary Care Provider] - (3) COPD (chronic obstructive pulmonary disease) 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 - Other emphysema (4) Type II diabetes mellitus Qualifiers: Diabetes mellitus senior living insulin use: without senior living use Diabetes mellitus complication status: with circulatory complication Diabetes mellitus complication detail: with other circulatory complications Qualified Code(s): E11.59 - Type 2 diabetes mellitus with other circulatory complications (5) CAD (coronary artery disease) Qualifiers: Coronary Disease-Associated Artery/Lesion type: [place] artery [place] vs. transplanted heart: [place] heart Associated angina: without angina Qualified Code(s): I25.10 - Atherosclerotic heart disease of [place] coronary artery without angina pectoris (6) Acute cystitis Qualifiers: Hematuria presence: without hematuria Qualified Code(s): N30.00 - Acute cystitis without hematuria
[2018-03-22] MEDS: cefTRIAXone 1,000 MG in Water for inj. (sterile) 20 ML 10 ML IVP SCH (13:49)
--- NOTE | 2018-03-22 16:23 | Cardiology Progress Note ---
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 Suspect possible fluid/dietary non-compliance, also non-compliant with calling cardiology with weight gain. Reported 40 lb weight gain. -BNP 2200s. Chest x-ray with vascular congestion, without overt edema. -Hx of ICMP. last LHC at [facility] 03/2017--s/p high risk PCI to prox and mid LAD and PTCA of diag, and PCI to the OM. - TTE this admission sjows EF 20-25%, severely dilated LV. [place] not well visualized. Moderatley reduced RV function. - Repeat TTE yesterday shows EF 20-25%, global systolic dysfunction and no LV thrombus. -Currently net negative 3335ml. -AceI on hold to allow room for IV diuretic. -Continue lasix. Out-put improved. -suspect at least 24 more hours of IV diuresis. Restart aceI at d/c. -Strict I&Os, daily weights (Standing), and Na/fluid restriction diet. -At this point, do not suspect RHC would be of benefit. -CHF education reviewed with patient and family. Educational barrier noted. -Close out-pt f/u with cardiology after d/c. Continue diuresis until near euvolemic. Cardiology will sign off. (2) LV (left ventricular) mural thrombus Current Visit: Yes Status: Chronic Per cardiology: -Known history of LV thrombus. -Was noted on TTE 07/2017. -TTE this admit LV apex not well visualized. -Repeat TTE with no LV thrombus. Discussed with Dr. Hooker. Janie to stop coumadin therapy at this time. concern for compliance. Patient on coumadin for 8 months. (3) CAD (coronary artery disease) Current Visit: Yes Status: Chronic Per cardiology: -Known CAD s/p PCI [facility] 03/2017. -STRESS TEST 01/25/18: Perfusion defect in the inferolateral wall representing prior infarct. Medium sized, moderate- severe intensity partially fixed defect in the mid-distal anterior wall, apex, and apical inferior wall with some areas worsening with stress, Findings likely represent [place]-infarct ischemia. AT that time, stress was thought to correlate to previous [facility]. -ON plavix, statin, BB, restart asa. - Denies chest pain. Continue to monitor. EF unchanged. Qualifiers: Coronary Disease-Associated Artery/Lesion type: [place] artery [place] vs. transplanted heart: [place] heart Associated angina: without angina Qualified Code(s): I25.10 - Atherosclerotic heart disease of [place] coronary artery without angina pectoris Discussion w patient/family: The assessment and plan as outlined above was discussed with the patient and/or family members who expressed understanding and agreement. All questions were answered. Thank you for involving us in the care of your patient. Please call with any questions. Subjective Principal diagnosis: acute on chronic CHFrEF Interval history: Mr. Emmanuel is sitting comfortably in the bedside chair. Denies significant SOB this morning. Denies chest pain. Poor historian. Asking when he can go home. Asking if he can do some walking instead of taking his medications. Objective Vital Signs, Last 4 Hours Temp Pulse Resp BP Pulse Ox 03/22/18 16:11 97.4 F L 90 18 113/79 93 General: Conversant, No Apparent Distress HEENT: Atraumatic, Normocephaly, Mucus Membranes Moist Neck: No JVD, Normal carotid pulses Cardiac: Reg Rate and Rhythm Lungs: Normal Breath Sounds, No Wheeze, Rales, Rhonchi Neuro: Alert and responsive, No focal deficits noted Abdomen: Soft, Non-Tender Skin: No rashes noted on visualized skin Musculoskeletal: No Chest Wall Tenderness Extremities: No Clubbing, No Cyanosis, Normal Pulses, Other (1+ pitting edema up to knees. Increased abdominal girth. ) Results 03/20/18 07:55 03/22/18 04:42 Lab Results 03/22/18 03/22/18 04:42 04:42 INR 1.6 Sodium 142 Potassium 4.5 Chloride 102 Carbon Dioxide 35 H BUN 27 H Creatinine 0.87 Glucose 138 H Calcium 9.0 - Imaging and Cardiology Echo: report reviewed - EKG Interpretation EKG results cardiology: personally reviewed Consult Discharge Plan - Plan Referrals: [facility] [place],Zackary Barth MD [Primary Care Provider] -
[2018-03-22] MEDS: Aspirin Enteric Coated 81 MG Tablet PO SCH (21:49)
[2018-03-22] MEDS: Perphenazine 8 MG TABLET PO SCH (21:49)
[2018-03-23] MEDS: *HR* Heparin 5,000 UNIT/ML VIAL SQ SCH (06:03)
[2018-03-23 07:10] LABS: Prothrombin Time 22.6 Seconds (9.4-12.1)
[2018-03-23] MEDS: Insulin LISPRO 300 UNITS/3 ML VIAL SQ SCH ×2 (08:01→11:33)
[2018-03-23] MEDS: Aspirin Enteric Coated 81 MG Tablet PO SCH (08:04)
[2018-03-23] MEDS: Furosemide 20 MG/2 ML VIAL IVP SCH (08:06)
[2018-03-23] MEDS: Cholestyramine 4 GM POWD.PACK PO SCH (08:06)
[2018-03-23] MEDS: Nystatin Cream 15 GM TUBE TP SCH ×2 (10:14→11:56)
[2018-03-23] MEDS: ZETIA 10 MG PO SCH (10:15)
[2018-03-23 11:24] VITALS: BP 123/72
[2018-03-23] MEDS: Tiotropium 18 MCG inhalation IH SCH (11:29)
--- NOTE | 2018-03-23 11:54 | Discharge Summary ---
Orders not resulted at time of discharge: Pending orders 03/21/18 23:50 Culture,Wound [RM] Routine 03/24/18 04:00 PT/INR [Prothrombin Time INR] [COAG] AM 0400 03/25/18 04:00 PT/INR [Prothrombin Time INR] [COAG] AM 0400 Date of Encounter: 03/23/18 Time of Encounter: 11:40 - Discharge Diagnosis (1) Acute on chronic systolic (congestive) heart failure Priority: Primary Status: Acute Assessment and Plan: 62 year old male patient with a history of cardiomyopathy with EF of 20-25%, coronary artery disease, status post AICD placement 1 month back, diabetes, hypertension, COPD and chronic respiratory failure on 2 L nasal cannula, chronic pancreatitis presented to the ER with complaints of shortness of breath. Present both at rest and with mild exertion, does have significant orthopnea to the point where he does not lie down on his back at all. He has also been having increasing swelling in his lower extremities and around his abdomen and he has had about 18 pounds of weight gain over the past couple of weeks. He was assessed with acute worsening of chronic systolic CHF and anasarca and started on diuresis with IV lasix. He had a repeat echo done on this admission showing global hypokinesis with EF 20-25%. He improved with IV lasix . He was also seenby cardiology who agreed with the plan of care. Patient had also been on coumadin outpatient for history of LV mural thrombus. Repeat echo done on this admission showed no evidence of thrombus and cardiology recommended discontinuing his anticoagulation. He also completed a course of ceftriaxone for citrobacter UTI. His left leg wound was cultured here and grew psedomonas. He will be discharged home with home health care for wound dressing changes and levaquin for 7 days. He was discharged in a stable condition. His dose of lasix was increased to 40mg po BID on discharge. 35 minutes was spent discharging this patient. (2) LV (left ventricular) mural thrombus Priority: Secondary Status: Chronic (3) COPD (chronic obstructive pulmonary disease) Priority: Secondary Status: Chronic 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 - Other emphysema (4) Type II diabetes mellitus Priority: Secondary Status: Chronic Qualifiers: Diabetes mellitus custodial insulin use: without custodial use Diabetes mellitus complication status: with circulatory complication Diabetes mellitus complication detail: with other circulatory complications Qualified Code(s): E11.59 - Type 2 diabetes mellitus with other circulatory complications (5) CAD (coronary artery disease) Priority: Secondary Status: Chronic Qualifiers: Coronary Disease-Associated Artery/Lesion type: [place] artery [place] vs. transplanted heart: [place] heart Associated angina: without angina Qualified Code(s): I25.10 - Atherosclerotic heart disease of [place] coronary artery without angina pectoris (6) Acute cystitis Priority: Secondary Status: Acute Qualifiers: Hematuria presence: without hematuria Qualified Code(s): N30.00 - Acute cystitis without hematuria (7) Elevated INR Priority: Secondary Status: Acute (8) Acute kidney injury Priority: Secondary Status: Acute (9) Lactic acidosis Priority: Secondary Status: Acute Hospital course: Mr. Emmanuel is a 62 year old male - Time Spent with Patient Total time spent providing and/or coordinating discharge services: - Discharge Medications Prescriptions: Aspirin Enteric Coated [Aspirin EC] 81 mg PO DAILY #30 tablet. Bacitracin OINT [Ak-Tracin] 1 appl TP BID 30 Days #1 tube Furosemide [Lasix] 40 mg PO BID #60 tablet levoFLOXacin [Levaquin] 750 mg PO DAILY 7 Days #7 tablet Nystatin Cream [Mycostatin Cream] 1 appl TP BID 30 Days #1 tube Home Medications: Albuterol Sulfate [Albuterol Inhaler] 2 puff IH Q4HR PRN 05/17/15 [History] Ezetimibe [Zetia] 10 mg PO DAILY 05/17/15 [History] Metformin HCl [Glucophage] 1,000 mg PO BID 05/17/15 [History] Tiotropium [Spiriva] 18 mcg IH DAILY 05/17/15 [History] Clopidogrel [Plavix] 75 mg PO DAILY 10/27/17 [History] Lisinopril [Zestril] 2.5 mg PO DAILY 10/27/17 [History] Metoprolol Succinate [Toprol Xl] 25 mg PO DAILY 10/27/17 [History] Lipase/Protease/Amylase [Omid Chakraborty 12,000 Units Capsule] 1 cap PO BID 11/10/17 [ History] Promethazine [Phenergan] 25 mg PO BID PRN 11/10/17 [History] Cholestyramine 4 g PO BID 01/24/18 [History] Perphenazine [Trilafon] 8 mg PO HS 01/24/18 [History] Tamsulosin [Flomax] 0.4 mg PO DAILY #30 capsule 02/04/18 [Rx] Aspirin Enteric Coated [Aspirin EC] 81 mg PO DAILY #30 tablet. 03/23/18 [Rx] Bacitracin OINT [Ak-Tracin] 1 appl TP BID 30 Days #1 tube 03/23/18 [Rx] Furosemide [Lasix] 40 mg PO BID #60 tablet 03/23/18 [Rx] Nystatin Cream [Mycostatin Cream] 1 appl TP BID 30 Days #1 tube 03/23/18 [Rx] levoFLOXacin [Levaquin] 750 mg PO DAILY 7 Days #7 tablet 03/23/18 [Rx] Allergies/Adverse Reactions: 3 Allergy/AdvReac Type Severity Reaction Status Date / Time loxapine [From Loxitane] Allergy See Verified 01/24/18 19:21 Comments betamethasone AdvReac Hives Verified 01/24/18 19:21 [From Lotrisone] clotrimazole [From Lotrisone] AdvReac Hives Verified 01/24/18 19:21 Sulfa (Sulfonamide AdvReac Hives Verified 01/24/18 19:21 Antibiotics) Date of admission: 03/17/18 16:34 Primary care physician: Zackary Hale MD Consults: 03/17/18 17:01 Consult to Surgery [CONS] Routine Consulting Provider: [facility] Reason for Consult: ABnormal CT findings possible estefani. But patient not symptomatic; ED doc spoke [facility] Dr. [place] Call Completed: Yes 03/17/18 18:04 Consult to Rim Fire Charger Operator [CONS] Routine Reason for SW Consult: [facility] home oxygen out of [place] 03/18/18 15:58 Consult to Physician [CONS] Routine Consulting Provider: Luis Rucker Reason for Consult: abd pain gallstone Time Notified: 15:59 Call Completed: No 03/19/18 18:45 Consult to Cardiology [CONS] Routine Comment: Consulting Provider: Cardiology Silvia Reason for Consult: Volume overload, RANDA, hypotension, lactic acidosis, ascites, peripheral edema. Could this be right heart failure? Would he benefit from RHC? Call Completed: No 03/21/18 22:19 Consult to Wound Care [CONS] Routine Reason for Consult: bilateral rico open wounds Call Completed: No - Constitutional Vitals: Temp Pulse Resp BP Pulse Ox 98.3 F 90 18 123/72 98 03/23/18 11:20 03/23/18 11:20 03/23/18 11:20 03/23/18 11:20 03/23/18 11:20 General appearance: Present: cooperative, disheveled, A&O X 3, answers questions appropriately Exam: awake, alert, no distress, sitting in chair no icterus moist oral mucosa JVP difficult to assess due to body habitus S1, S2, no MRG Good breath sounds, no rales or wheezing 3+ LE edema with clear fluid filled blisters Soft, distended with ascites, NT, no guarding or rebound No dysarthria, no facial droop normal mood and behavior - Patient Status Disposition: Home Health Service Condition: Good - Discharge Instructions Instructions: Furosemide (By mouth), Aspirin (By mouth), Levofloxacin (By mouth ), Heart Failure (DC), Wound Infection (GEN), Heart Healthy Diet (DC), Meal Planning with Diabetes Exchanges (DC) Follow Up With: Zackary Hale MD [Primary Care Provider] -
--- NOTE | 2018-03-23 12:01 | Physician Discharge Referral ---
Home Health/Hosp Referral Info Transfer to: Home Health - Diagnosis (1) Acute on chronic systolic (congestive) heart failure Priority: Primary Status: Acute (2) LV (left ventricular) mural thrombus Priority: Primary Status: Chronic (3) COPD (chronic obstructive pulmonary disease) Priority: Primary Status: Chronic (4) Type II diabetes mellitus Priority: Primary Status: Chronic (5) CAD (coronary artery disease) Status: Chronic (6) Acute cystitis Status: Acute (7) Elevated INR Status: Acute (8) Acute kidney injury Status: Acute (9) Lactic acidosis Status: Acute - Respiratory Orders Smoking Cessation: Smoking cessation has been advised. For more information, call the [place] Tobacco Quit Line at 2-705-VFOJ-NOW. - Diet/Nutrition Diet/Nutrition Orders: Cardiac - Activity Activity Orders: Ambulate - Services Needed Following services are medically necessary services: Nursing, Home Health Aide, Physical Therapy Home Care Orders: Wound Care. Pt needs daily wound care with wound dressing changes Other Treatments: Wound care with daily wound dressing - Transfer Medications Prescriptions: Aspirin Enteric Coated [Aspirin EC] 81 mg PO DAILY #30 tablet. Bacitracin OINT [Ak-Tracin] 1 appl TP BID 30 Days #1 tube Furosemide [Lasix] 40 mg PO BID #60 tablet levoFLOXacin [Levaquin] 750 mg PO DAILY 7 Days #7 tablet Nystatin Cream [Mycostatin Cream] 1 appl TP BID 30 Days #1 tube Home Medications: Albuterol Sulfate [Albuterol Inhaler] 2 puff IH Q4HR PRN 05/17/15 [History] Ezetimibe [Zetia] 10 mg PO DAILY 05/17/15 [History] Metformin HCl [Glucophage] 1,000 mg PO BID 05/17/15 [History] Tiotropium [Spiriva] 18 mcg IH DAILY 05/17/15 [History] Clopidogrel [Plavix] 75 mg PO DAILY 10/27/17 [History] Lisinopril [Zestril] 2.5 mg PO DAILY 10/27/17 [History] Metoprolol Succinate [Toprol Xl] 25 mg PO DAILY 10/27/17 [History] Lipase/Protease/Amylase [Omid Chakraborty 12,000 Units Capsule] 1 cap PO BID 11/10/17 [ History] Promethazine [Phenergan] 25 mg PO BID PRN 11/10/17 [History] Cholestyramine 4 g PO BID 01/24/18 [History] Perphenazine [Trilafon] 8 mg PO HS 01/24/18 [History] Tamsulosin [Flomax] 0.4 mg PO DAILY #30 capsule 02/04/18 [Rx] Aspirin Enteric Coated [Aspirin EC] 81 mg PO DAILY #30 tablet. 03/23/18 [Rx] Bacitracin OINT [Ak-Tracin] 1 appl TP BID 30 Days #1 tube 03/23/18 [Rx] Furosemide [Lasix] 40 mg PO BID #60 tablet 03/23/18 [Rx] Nystatin Cream [Mycostatin Cream] 1 appl TP BID 30 Days #1 tube 03/23/18 [Rx] levoFLOXacin [Levaquin] 750 mg PO DAILY 7 Days #7 tablet 03/23/18 [Rx] Allergies/Adverse Reactions: 3 Allergy/AdvReac Type Severity Reaction Status Date / Time loxapine [From Loxitane] Allergy See Verified 01/24/18 19:21 Comments betamethasone AdvReac Hives Verified 01/24/18 19:21 [From Lotrisone] clotrimazole [From Lotrisone] AdvReac Hives Verified 01/24/18 19:21 Sulfa (Sulfonamide AdvReac Hives Verified 01/24/18 19:21 Antibiotics) Certification: Further, I certify that my clinical findings support that this patient is homebound (i.e. absences from home require considerable and taxing effort and are for medical reasons or christian services or infrequently or short duration when for other reasons) because: Homebound Reason: Patient requires assistance of a person or device to safely leave home Attestation: My signature below is to certify that this patient is under my care and that I, or nurse practitioner, or a physician's placement assistant working with me, has a face-to -face encounter with this patient.
== END 2018-03-23 13:18 | disposition home health service (06) | DRG 291 ==
LOC: EMEROOARM 12:08 → SUATTDRO 16:34 → 2NENU 16:34
PROVIDERS: ADMIT Internal Medicine; ATTEND Student in an Organized Health Care Education/Training Program

== ENCOUNTER 2018-04-08 19:04 | Inpatient (IN) ==
--- NOTE | 2018-04-08 19:17 | Emergency Department Note ---
Disposition Clinical Impression: Elevated troponin, Lower extremity edema CHF exacerbation Qualifiers: Heart failure type: unspecified Qualified Code(s): I50.9 - Heart failure, unspecified Disposition: Admitted As Inpatient Condition: Fair Time of Disposition: 20:45 General Adult HPI - General Stated complaint: Abdominal Pain Time Seen by Provider: 04/08/18 19:12 Source: patient, EMS Mode of arrival: EMS Limitations: no limitations Nursing Notes Reviewed: Yes Vital Signs Reviewed: Yes - History of Present Illness HPI Narrative: Patient is a 62-year-old male with a past medical history of CAD, CHF with ejection fraction of 20-25%, recent AICD placement approximately 1.5 months ago at [facility], diabetes, hypertension, COPD on 2 L nasal cannula and with chronic pancreatitis presents emergency department for the complaint of dyspnea as well as intermittent chest pain has been going on since this morning. Patient denies fevers, chills, productive cough, back pain, nausea, vomiting, dysuria or diarrhea. He does complain of swelling in his bilateral lower extremities as well as some new sores that are present on bilateral lower extremities. States that he lives at home is evident difficult time getting around his home due to his dyspnea. - Related Data Home Medications Medication Instructions Recorded Confirmed Albuterol Sulfate [Albuterol 2 puff IH Q4HR PRN 05/17/15 03/17/18 Inhaler] Ezetimibe [Zetia] 10 mg PO DAILY 05/17/15 03/17/18 Metformin HCl [Glucophage] 1,000 mg PO BID 05/17/15 03/17/18 Tiotropium [Spiriva] 18 mcg IH DAILY 05/17/15 03/17/18 Clopidogrel [Plavix] 75 mg PO DAILY 10/27/17 03/17/18 Lisinopril [Zestril] 2.5 mg PO DAILY 10/27/17 03/17/18 Metoprolol Succinate [Toprol Xl] 25 mg PO DAILY 10/27/17 03/17/18 Lipase/Protease/Amylase [Creon Dr 1 cap PO BID 11/10/17 03/17/18 12,000 Units Capsule] Promethazine [Phenergan] 25 mg PO BID PRN 11/10/17 03/17/18 Cholestyramine 4 g PO BID 01/24/18 03/17/18 Perphenazine [Trilafon] 8 mg PO HS 01/24/18 03/17/18 Previous Rx's Medication Instructions Recorded Tamsulosin [Flomax] 0.4 mg PO DAILY #30 capsule 02/04/18 Aspirin Enteric Coated [Aspirin EC] 81 mg PO DAILY #30 tablet. 03/23/18 Bacitracin OINT [Ak-Tracin] 1 appl TP BID 30 Days #1 tube 03/23/18 Furosemide [Lasix] 40 mg PO BID #60 tablet 03/23/18 Nystatin Cream [Mycostatin Cream] 1 appl TP BID 30 Days #1 tube 03/23/18 levoFLOXacin [Levaquin] 750 mg PO DAILY 7 Days #7 tablet 03/23/18 Allergies Allergy/AdvReac Type Severity Reaction Status Date / Time loxapine [From Loxitane] Allergy See Verified 01/24/18 19:21 Comments betamethasone AdvReac Hives Verified 01/24/18 19:21 [From Lotrisone] clotrimazole [From Lotrisone] AdvReac Hives Verified 01/24/18 19:21 Sulfa (Sulfonamide AdvReac Hives Verified 01/24/18 19:21 Antibiotics) All systems ED: reviewed and negative except as stated. Review of Systems: As Per HPI Constitutional: Denies: fever, chills Cardiovascular: Reports: chest pain, dyspnea on exertion, edema. Denies: palpitations, syncope Respiratory: Reports: cough, dyspnea. Denies: wheezes, hemoptysis, sputum production Gastrointestinal: Denies: abdominal pain, nausea, vomiting, constipation, hematemesis Genitourinary: Denies: urgency, dysuria, frequency Musculoskeletal: Denies: back pain, neck pain Integumentary: Denies: rash Neurological: Denies: headache, weakness, numbness, paresthesias, confusion Past Medical History - Past Medical History Attestation: Yes The following information was validated with the patient. Medical history: Reports: cancer, cardiomyopathy, COPD, coronary artery disease , diabetes, hyperlipidemia, hypertension, myocardial infarction, other Surgical history: Reports: angioplasty/stent, cataract, herniorrhaphy, other Psychiatric history: Reports: no psych history - Social History Smoking Status: Current every day smoker Smokeless Tobacco Status: No Alcohol use: Reports: none Drug use: Reports: none Physical Exam - General Limitations: no limitations General appearance: alert, in no apparent distress - Head Head exam: atraumatic, normocephalic, normal inspection - Eye Eye exam: Present: normal appearance, PERRL, EOMI - ENT ENT exam: normal exam, normal oropharynx, mucous membranes moist, mucous membranes dry - Neck Neck exam: Present: normal inspection, full ROM, trachea midline - Chest Chest inspection: Present: normal inspection, symmetric chest wall rise. Absent : tenderness - Respiratory Respiratory exam: Present: other (rales in the bases bilaterally). Absent: respiratory distress, wheezes, accessory muscle use - Cardiovascular Cardiovascular exam: Present: regular rate, normal rhythm, normal heart sounds, +S1, +S2 - Abdominal Exam Abdominal exam: Present: soft, Non-Tender, distention, normal bowel sounds - Extremities Exam Extremities exam: Present: pedal edema, other (bilateral 2+ edema. Small areas of open skin that are 2x2cm appear to be open blisters with no surrounding inflammation or drainage. No induration or fluctuance. ) - Neurological Exam Neurological exam: Present: alert, oriented X3 - Psychiatric Psychiatric exam: Present: normal affect, normal mood - Skin Skin exam: Present: warm, dry, normal color, rash Course Vital Signs Temperature 97.4 F L 04/08/18 19:18 Pulse Rate 100 04/08/18 19:18 Respiratory Rate 20 04/08/18 19:18 Blood Pressure 128/80 04/08/18 19:18 O2 Sat by Pulse Oximetry 100 04/08/18 19:18 Temperature 97.4 F L 04/08/18 19:18 Pulse Rate 102 04/08/18 20:53 Respiratory Rate 18 04/08/18 20:53 Blood Pressure 104/78 04/08/18 20:53 O2 Sat by Pulse Oximetry 91 04/08/18 20:53 Oxygen Delivery Oxygen Delivery Nasal Cannula Medical Decision Making - Medical Records Medical records reviewed: Yes I reviewed the patient's medical records. - Lab Data Lab results reviewed: Yes I reviewed the patient's lab results. Result diagrams: 04/08/18 20:00 04/08/18 20:00 Lab Results 04/08/18 04/08/18 04/08/18 Range/Units 20:00 20:00 20:00 WBC 9.0 (4.3-11.1) K/mcL RBC 4.21 (4.19-5.50) M/mcL Hgb 12.8 L (12.9-16.9) g/dL Hct 41.2 (37.5-50.1) % MCV 97.9 (83.0-100.0) fL MCH 30.4 (28.0-33.3) pg MCHC 31.1 L (31.6-35.5) g/dL RDW 17.2 H (11.5-14.5) % Plt Count 218 (140-400) K/mcL MPV 10.0 (9.4-12.4) fL Immature Gran % 0.3 (0-4) % Seg Neutrophils % 73.9 % Lymphocytes % 12.0 % Monocytes % 11.7 % Eosinophils % 1.8 % Basophils % 0.3 % Neutrophils # 6.7 (1.6-8.9) K/mcL Lymphocytes # 1.1 (0.6-4.6) K/mcL Monocytes # 1.1 (0.0-1.3) K/mcL Eosinophils # 0.2 (0.0-0.6) K/mcL Basophils # 0.0 (0.0-0.2) K/mcL Sodium 136 (136-145) mEq/L Potassium 4.2 (3.5-5.1) mEq/L Chloride 98 (98-107) mEq/L Carbon Dioxide 32 H (23-29) mEq/L BUN 44 H (8-23) mg/dL Creatinine 1.27 (0.70-1.30) mg/dL Est GFR ( Amer) > 60 (> 60) Est GFR (Non-Af Amer) 57 L (> 60) BUN/Creatinine Ratio 35 H (6-26) Glucose 153 H (70-105) mg/dL Calculated Osmolality 296 (280-300) Calcium 9.1 (8.6-10.3) mg/dL Total Bilirubin 0.9 (0.3-1.0) mg/dL Direct Bilirubin 0.5 H (0.0-0.2) mg/dL Indirect Bilirubin 0.4 (0.0-1.2) mg/dL AST 16 (13-39) Units/L ALT 13 (7-52) Units/L Alkaline Phosphatase 85 (34-104) Units/L Troponin I 0.07 H* (< 0.04) ng/mL B-Natriuretic Peptide 1566 H (Less than 100) pg/mL Serum Total Protein 6.6 (6.4-8.9) g/dL Albumin 3.7 (3.5-5.7) g/dL Globulin 2.9 (2.4-3.5) g/dL Albumin/Globulin Ratio 1.3 (1.1-2.2) Lipase 47 (11-82) Units/L - Radiology Data Radiology results reviewed: Yes I reviewed the patient's radiology results. Chest X-Ray 04/08/18 19:14 IMPRESSION: Pulmonary vascular congestion. Correlate with clinical evidence of developing pulmonary edema. D/ / Jamel Green MD / Jamel Green MD Interpreting Provider: Jamel Green MD - EKG Data EKG #1 EKG attestation: Yes I reviewed and interpreted this EKG. EKG results narrative: EKG done at 19:20 shows atrial flutter at 109 bpm. Normal axis. No signs of ST elevation, ST depression or Q waves present.
[2018-04-08 20:14] LABS: Basophils % 0.3 %; Eosinophils # 0.2 K/mcL (0.0-0.6); Eosinophils % 1.8 %; Hematocrit 41.2 % (37.5-50.1); Hemoglobin 12.8 g/dL (12.9-16.9); Immature Granulocytes % 0.3 % (0-4); Lymphocytes # 1.1 K/mcL (0.6-4.6); Mean Corpuscular HGB Conc 31.1 g/dL (31.6-35.5); Mean Corpuscular Hemoglobin 30.4 pg (28.0-33.3); Mean Corpuscular Volume 97.9 fL (83.0-100.0); Monocytes # 1.1 K/mcL (0.0-1.3); Monocytes % 11.7 %; Neutrophils # 6.7 K/mcL (1.6-8.9); Platelet Count 218 K/mcL (140-400); Red Blood Count 4.21 M/mcL (4.19-5.50); Red Cell Distribution Width 17.2 % (11.5-14.5); Segmented Neutrophils % 73.9 %
[2018-04-08 20:35] LABS: Alanine Aminotransferase 13 Units/L (7-52); Albumin 3.7 g/dL (3.5-5.7); Albumin/Globulin Ratio 1.3 (1.1-2.2); Alkaline Phosphatase 85 Units/L (34-104); Aspartate Amino Transferase 16 Units/L (13-39); BUN/Creatinine Ratio 35 (6-26); Bilirubin,Direct 0.5 mg/dL (0.0-0.2); Bilirubin,Indirect 0.4 mg/dL (0.0-1.2); Bilirubin,Total 0.9 mg/dL (0.3-1.0); Blood Urea Nitrogen 44 mg/dL (8-23); Calcium 9.1 mg/dL (8.6-10.3); Carbon Dioxide 32 mEq/L (23-29); Chloride 98 mEq/L (98-107); Globulin 2.9 g/dL (2.4-3.5); Glucose 153 mg/dL (70-105); Lipase 47 Units/L (11-82); Osmolality,Calculated 296 (280-300); Potassium 4.2 mEq/L (3.5-5.1); Sodium 136 mEq/L (136-145); Total Protein 6.6 g/dL (6.4-8.9); eGFR For Non-African Americans 57 (> 60)
[2018-04-08 20:38] LABS: Troponin I 0.07 ng/mL (< 0.04)
[2018-04-08] MEDS ORDERED: Aspirin 325 MG TABLET PO ONE (20:39)
--- NOTE | 2018-04-08 20:44 | Emergency Department Note ---
Disposition Clinical Impression: CHF exacerbation, Elevated troponin, Lower extremity edema Disposition: Admitted As Inpatient Condition: Fair General Adult HPI - General Chief complaint: ED Chest Pain Stated complaint: Abdominal Pain Time Seen by Provider: 04/08/18 19:12 Source: patient, EMS Mode of arrival: EMS Limitations: no limitations - History of Present Illness Pain Scale: 0 - Related Data Home Medications Medication Instructions Recorded Confirmed Albuterol Sulfate [Albuterol 2 puff IH Q4HR PRN 05/17/15 03/17/18 Inhaler] Ezetimibe [Zetia] 10 mg PO DAILY 05/17/15 03/17/18 Metformin HCl [Glucophage] 1,000 mg PO BID 05/17/15 03/17/18 Tiotropium [Spiriva] 18 mcg IH DAILY 05/17/15 03/17/18 Clopidogrel [Plavix] 75 mg PO DAILY 10/27/17 03/17/18 Lisinopril [Zestril] 2.5 mg PO DAILY 10/27/17 03/17/18 Metoprolol Succinate [Toprol Xl] 25 mg PO DAILY 10/27/17 03/17/18 Lipase/Protease/Amylase [Creon Dr 1 cap PO BID 11/10/17 03/17/18 12,000 Units Capsule] Promethazine [Phenergan] 25 mg PO BID PRN 11/10/17 03/17/18 Cholestyramine 4 g PO BID 01/24/18 03/17/18 Perphenazine [Trilafon] 8 mg PO HS 01/24/18 03/17/18 Previous Rx's Medication Instructions Recorded Tamsulosin [Flomax] 0.4 mg PO DAILY #30 capsule 02/04/18 Aspirin Enteric Coated [Aspirin EC] 81 mg PO DAILY #30 tablet. 03/23/18 Bacitracin OINT [Ak-Tracin] 1 appl TP BID 30 Days #1 tube 03/23/18 Furosemide [Lasix] 40 mg PO BID #60 tablet 03/23/18 Nystatin Cream [Mycostatin Cream] 1 appl TP BID 30 Days #1 tube 03/23/18 levoFLOXacin [Levaquin] 750 mg PO DAILY 7 Days #7 tablet 03/23/18 Allergies Allergy/AdvReac Type Severity Reaction Status Date / Time loxapine [From Loxitane] Allergy See Verified 07/02/18 19:21 Comments betamethasone AdvReac Hives Verified 01/24/18 19:21 [From Lotrisone] clotrimazole [From Lotrisone] AdvReac Hives Verified 01/24/18 19:21 Sulfa (Sulfonamide AdvReac Hives Verified 01/24/18 19:21 Antibiotics) Constitutional: Denies: fever, chills Cardiovascular: Reports: chest pain, dyspnea on exertion, edema. Denies: palpitations, syncope Respiratory: Reports: cough, dyspnea. Denies: wheezes, hemoptysis, sputum production Gastrointestinal: Denies: abdominal pain, nausea, vomiting, constipation, hematemesis Genitourinary: Denies: urgency, dysuria, frequency Musculoskeletal: Denies: back pain, neck pain Integumentary: Denies: rash Neurological: Denies: headache, weakness, numbness, paresthesias, confusion Past Medical History - Past Medical History Medical history: Reports: cancer, cardiomyopathy, COPD, coronary artery disease , diabetes, hyperlipidemia, hypertension, myocardial infarction, other Surgical history: Reports: angioplasty/stent, cataract, herniorrhaphy, other Psychiatric history: Reports: no psych history - Social History Smoking Status: Current every day smoker Smokeless Tobacco Status: No Alcohol use: Reports: none Drug use: Reports: none Physical Exam - General Limitations: no limitations General appearance: alert, in no apparent distress Course Vital Signs Temperature 97.4 F L 04/08/18 19:18 Pulse Rate 100 04/08/18 19:18 Respiratory Rate 20 04/08/18 19:18 Blood Pressure 128/80 04/08/18 19:18 O2 Sat by Pulse Oximetry 100 04/08/18 19:18 Temperature 97.4 F L 04/08/18 19:18 Pulse Rate 102 04/08/18 20:53 Respiratory Rate 18 04/08/18 20:53 Blood Pressure 104/78 04/08/18 20:53 O2 Sat by Pulse Oximetry 91 04/08/18 20:53 Oxygen Delivery Oxygen Delivery Nasal Cannula Medical Decision Making - Lab Data Result diagrams: 04/08/18 20:00 04/08/18 20:00 Lab Results 04/08/18 04/08/18 04/08/18 Range/Units 20:00 20:00 20:00 WBC 9.0 (4.3-11.1) K/mcL RBC 4.21 (4.19-5.50) M/mcL Hgb 12.8 L (12.9-16.9) g/dL Hct 41.2 (37.5-50.1) % MCV 97.9 (83.0-100.0) fL MCH 30.4 (28.0-33.3) pg MCHC 31.1 L (31.6-35.5) g/dL RDW 17.2 H (11.5-14.5) % Plt Count 218 (140-400) K/mcL MPV 10.0 (9.4-12.4) fL Immature Gran % 0.3 (0-4) % Seg Neutrophils % 73.9 % Lymphocytes % 12.0 % Monocytes % 11.7 % Eosinophils % 1.8 % Basophils % 0.3 % Neutrophils # 6.7 (1.6-8.9) K/mcL Lymphocytes # 1.1 (0.6-4.6) K/mcL Monocytes # 1.1 (0.0-1.3) K/mcL Eosinophils # 0.2 (0.0-0.6) K/mcL Basophils # 0.0 (0.0-0.2) K/mcL Sodium 136 (136-145) mEq/L Potassium 4.2 (3.5-5.1) mEq/L Chloride 98 (98-107) mEq/L Carbon Dioxide 32 H (23-29) mEq/L BUN 44 H (8-23) mg/dL Creatinine 1.27 (0.70-1.30) mg/dL Est GFR ( Amer) > 60 (> 60) Est GFR (Non-Af Amer) 57 L (> 60) BUN/Creatinine Ratio 35 H (6-26) Glucose 153 H (70-105) mg/dL Calculated Osmolality 296 (280-300) Calcium 9.1 (8.6-10.3) mg/dL Total Bilirubin 0.9 (0.3-1.0) mg/dL Direct Bilirubin 0.5 H (0.0-0.2) mg/dL Indirect Bilirubin 0.4 (0.0-1.2) mg/dL AST 16 (13-39) Units/L ALT 13 (7-52) Units/L Alkaline Phosphatase 85 (34-104) Units/L Troponin I 0.07 H* (< 0.04) ng/mL B-Natriuretic Peptide 1566 H (Less than 100) pg/mL Serum Total Protein 6.6 (6.4-8.9) g/dL Albumin 3.7 (3.5-5.7) g/dL Globulin 2.9 (2.4-3.5) g/dL Albumin/Globulin Ratio 1.3 (1.1-2.2) Lipase 47 (11-82) Units/L Critical Care Time Critical Care Time: Yes Total Critical Care Time: 35 Attestation: Critical care performed: Time is exclusive of separately billable procedures. Time includes: direct patient care, patient reassessment, coordination of patient care, interpretation of data (laboratory data, radiology data, and respiratory data), review of patient's medical records, medical consultation and documentation of patient care. Procedures included in critical care time: Procedures excluded from critical care time: Attestation Statement - Attestation Attestation: I examined this patient and my medical decision-making was reviewed with the Resident Physician. I agree with the documented findings, disposition and treatment plan as described except to the extent set forth below. Patient to the ED with shortness of breath. Abdominal swelling. Patient requesting have his abdomen drained. Patient is a history of heart disease. He is a low ejection fraction and a recent AICD placement. He has never had a paracentesis, but states that they have talked about it. On examination he appears mildly dyspneic. Tachypneic. Abdomen swollen but not distended. Decreased breath sounds in the bases. Plan. Patient with acute decompensated heart failure. We will give IV Lasix. No indication for emergent paracentesis. Troponin elevated likely secondary to his to Compazine of her failure. Chest X-Ray 04/08/18 19:14 IMPRESSION: Pulmonary vascular congestion. Correlate with clinical evidence of developing pulmonary edema. D/ / Jamel Green MD / Jamel Green MD Interpreting Provider: Jamel Green MD
[2018-04-08] MEDS ORDERED: Furosemide 20 MG/2 ML VIAL IVP ONE (20:45)
[2018-04-08] MEDS ORDERED: Furosemide 40 MG/4 ML VIAL IVP ONE (20:46)
[2018-04-08] MEDS ORDERED: Dextrose Gel 15 GM/37.5 ML TUBE PO PRN ×2 (21:37)
[2018-04-08] MEDS ORDERED: Albuterol 2.5 MG/3 ML NEBULIZER IH PRN (21:38)
--- NOTE | 2018-04-08 21:52 | Internal Med History&Physical ---
Date of Encounter: 04/08/18 Time of Encounter: 20:00 Internal Medicine - H&P: HPI Chief complaint: Leg swelling Admitted From: Home Plans for Post Hospital Care: Home History of present illness: 62 year old male patient with a history of ischemic cardiomyopathy with EF of 20 -25%, coronary artery disease, status post AICD placement 2 months ago, diabetes , hypertension, COPD and chronic respiratory failure on 2 L nasal cannula, chronic pancreatitis presented to the ER with complaints of shortness of breath. Present both at rest and with mild exertion, does have significant orthopnea to the point where he does not lie down on his back at all. He has also been having increasing swelling in his lower extremities and around his abdomen and he has had about 30 pounds of weight gain over the past couple of weeks. Of note he was previously on warfarin for an LV thrombus however during his last admission an echo was seen which showed resolution of the thrombus and warfarin was discontinued and he has since been on dual antiplatelet therapy. Right now he says his chief complaint is his abdominal girth that has significantly increased as well as bilateral leg swelling and now increasing shortness of breath that impedes him from ambulating properly. He denies any chest pain, fever or chills. He denies any dizziness, headaches or loss of consciousness. Past Med Surg Social Fam HX - Past Medical History Medical history: cancer, cardiomyopathy, COPD, coronary artery disease, diabetes , hyperlipidemia, hypertension, myocardial infarction, other Additional medical history: pancreatitis Psychiatric history: no psych history - Past Surgical History Surgical History: angioplasty/stent, cataract, herniorrhaphy, other Additional surgical history: x3 stents - Social History Smoking Status: Current every day smoker Smokeless Tobacco Status: No Alcohol use: none Drug use: none - Family History Father Adopted: No Living Status: Hx Family Cardiac Disorders: No Hx Family Respiratory Disorders: Yes Hx Family Cancer: Yes Hx Family GI Disorders: No Hx Family Endocrine Disorder: No Hx Family Neuromuscular Disorders: No Hx Family Neurologic Disorders: No Hx Family HEENT Disorders: No Hx Family Autoimmune Disorders: No Mother Adopted: No Family Member Ethnicity: Non- Living Status: Hx Family Cardiac Disorders: No Hx Family Respiratory Disorders: Yes Hx Family Cancer: Yes Hx Family GI Disorders: No Hx Family Endocrine Disorder: Yes Hx Family Neuromuscular Disorders: No Hx Family Neurologic Disorders: No Hx Family HEENT Disorders: No Hx Family Autoimmune Disorders: No Internal Medicine - H&P: Meds Albuterol Sulfate [Albuterol Inhaler] 2 puff IH Q4HR PRN 05/17/15 [History] Ezetimibe [Zetia] 10 mg PO DAILY 05/17/15 [History] Metformin HCl [Glucophage] 1,000 mg PO BID 05/17/15 [History] Tiotropium [Spiriva] 18 mcg IH DAILY 05/17/15 [History] Clopidogrel [Plavix] 75 mg PO DAILY 10/27/17 [History] Lisinopril [Zestril] 2.5 mg PO DAILY 10/27/17 [History] Metoprolol Succinate [Toprol Xl] 25 mg PO DAILY 10/27/17 [History] Lipase/Protease/Amylase [Omid Chakraborty 12,000 Units Capsule] 1 cap PO BID 11/10/17 [ History] Promethazine [Phenergan] 25 mg PO BID PRN 11/10/17 [History] Cholestyramine 4 g PO BID 01/24/18 [History] Perphenazine [Trilafon] 8 mg PO HS 01/24/18 [History] Tamsulosin [Flomax] 0.4 mg PO DAILY #30 capsule 02/04/18 [Rx] Aspirin Enteric Coated [Aspirin EC] 81 mg PO DAILY #30 tablet. 03/23/18 [Rx] Bacitracin OINT [Ak-Tracin] 1 appl TP BID 30 Days #1 tube 03/23/18 [Rx] Furosemide [Lasix] 40 mg PO BID #60 tablet 03/23/18 [Rx] Nystatin Cream [Mycostatin Cream] 1 appl TP BID 30 Days #1 tube 03/23/18 [Rx] levoFLOXacin [Levaquin] 750 mg PO DAILY 7 Days #7 tablet 03/23/18 [Rx] 3 Allergy/AdvReac Type Severity Reaction Status Date / Time loxapine [From Loxitane] Allergy See Verified 01/24/18 19:21 Comments betamethasone AdvReac Hives Verified 01/24/18 19:21 [From Lotrisone] clotrimazole [From Lotrisone] AdvReac Hives Verified 01/24/18 19:21 Sulfa (Sulfonamide AdvReac Hives Verified 01/24/18 19:21 Antibiotics) All Systems PM: A 10-system review of systems was performed and is negative for pertinent findings except as documented above in the HPI. - Constitutional Vitals: Temp Pulse Resp BP Pulse Ox 97.4 F L 101 21 121/72 98 04/08/18 19:18 04/08/18 21:31 04/08/18 21:31 04/08/18 21:31 04/08/18 21:31 Exam: Vitals: Reviewed General: Obese male sitting up in bed in no acute distress Skin: Pinkish skin in his lower extremities with blisters that are wrapped with clean dry gauze HEENT: Moist mucous membranes. No conjunctivae pallor. Neck: No lymphadenopathy. Positive JVD. d. Chest: Diminished thoracic expansion with reduced breath sounds in both lower lung ball with fine rales auscultated. Heart: Normal S1 & S2; irregularly irregular. Abdomen: Medically distended with abdominal wall pitting edema but no tenderness to palpation of peritoneal reaction. Extremities: 2+ pitting edema bilaterally. Neurological: Awake, alert and oriented to person, place and time. No focal deficits. Psych: Affect appropriate. Internal Med - H&P Results - Labs CBC & Chem 7: 04/08/18 20:00 04/08/18 20:00 - Assessment and plan (1) Acute on chronic systolic (congestive) heart failure Current Visit: Yes Status: Acute Assessment and plan: He did have a significant elevation in his BNP and his clinical symptoms are consistent with an acute episode of heart failure likely secondary to nonadherence and his dietary habits have been poor as confirmed by him and his . High dose Lasix to begin with and can reduce rates with positive response. Continue beta sage and MARILYNN inhibitor. (2) Elevated troponin Current Visit: Yes Status: Acute Assessment and plan: In the setting of acute systolic failure likely secondary to myocardial strain and demand ischemia. Records reviewed show that he has always had positive troponins. Currently no clinical or electrocardiographic signs of acute ischemic disease. We will obtain another troponin for evaluation however at this time there is no role for anticoagulation. (3) Lower extremity edema Current Visit: Yes Status: Acute Assessment and plan: Secondary to venous stasis and congestive heart failure. Advise to keep legs elevated and we will administer diuretics (4) 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 Current Visit: Yes Status: Acute Assessment and plan: AICD in place that has not fired. Beta sage and MARILYNN inhibitor to be continued. May need consideration for potassium sparing diuretic as well. (5) CAD (coronary artery disease) Current Visit: Yes Status: Chronic Assessment and plan: Stable. Continue dual antiplatelet therapy. Qualifiers: Coronary Disease-Associated Artery/Lesion type: [place] artery [place] vs. transplanted heart: [place] heart Associated angina: without angina Qualified Code(s): I25.10 - Atherosclerotic heart disease of [place] coronary artery without angina pectoris (6) Diabetes Current Visit: Yes Status: Chronic Assessment and plan: Hold metformin for now and place on insulin sliding scale with frequent Accu- Cheks. Qualifiers: Diabetes mellitus type: type 2 Diabetes mellitus intermediate project manager insulin use: without intermediate project manager use Diabetes mellitus complication status: with other specified complication Qualified Code(s): E11.69 - Type 2 diabetes mellitus with other specified complication (7) HTN (hypertension) Current Visit: Yes Status: Chronic Assessment and plan: Well-controlled for now we will resume his home oral antihypertensives. Qualifiers: Hypertension type: essential hypertension Qualified Code(s): I10 - Essential (primary) hypertension (8) Obesity Current Visit: Yes Status: Chronic Assessment and plan: He will benefit from nutrition consultation. Qualifiers: Obesity type: due to excess calories Obesity classification: adult class 3 (BMI >= 40) Serious obesity comorbidity presence: without serious comorbidity Body mass index: BMI 40.0-44.9 Qualified Code(s): E66.01 - Morbid (severe) obesity due to excess calories; Z68.41 - Body mass index (BMI) 40.0-44.9, adult (9) DVT prophylaxis Current Visit: Yes Status: Acute Assessment and plan: Subcutaneous heparin ordered. - Time Spent With Patient Total time spent is greater than 50% in coordination of care (as documented) at patient's floor/unit and/or counseling patient: Greater than 35 minutes
[2018-04-09] MEDS: *HR* Heparin 5,000 UNIT/ML VIAL SQ SCH ×4 (00:46→21:41)
[2018-04-09 05:04] LABS: Basophils % 0.5 %; Eosinophils # 0.2 K/mcL (0.0-0.6); Eosinophils % 2.1 %; Hematocrit 40.4 % (37.5-50.1); Hemoglobin 12.5 g/dL (12.9-16.9); Immature Granulocytes % 0.5 % (0-4); Lymphocytes # 1.1 K/mcL (0.6-4.6); Lymphocytes % 13.3 %; Mean Corpuscular HGB Conc 30.9 g/dL (31.6-35.5); Mean Corpuscular Hemoglobin 30.8 pg (28.0-33.3); Mean Corpuscular Volume 99.5 fL (83.0-100.0); Monocytes # 1.1 K/mcL (0.0-1.3); Monocytes % 12.8 %; Neutrophils # 5.8 K/mcL (1.6-8.9); Platelet Count 197 K/mcL (140-400); Red Blood Count 4.06 M/mcL (4.19-5.50); Red Cell Distribution Width 17.2 % (11.5-14.5); Segmented Neutrophils % 70.8 %
[2018-04-09 05:23] LABS: BUN/Creatinine Ratio 38 (6-26); Blood Urea Nitrogen 43 mg/dL (8-23); Calcium 8.7 mg/dL (8.6-10.3); Carbon Dioxide 30 mEq/L (23-29); Chloride 97 mEq/L (98-107); Glucose 233 mg/dL (70-105); Osmolality,Calculated 292 (280-300); Potassium 4.3 mEq/L (3.5-5.1); Sodium 132 mEq/L (136-145); eGFR For Non-African Americans > 60 (> 60)
[2018-04-09 05:35] LABS: Troponin I 0.07 ng/mL (< 0.04)
[2018-04-09] MEDS: Tiotropium 18 MCG inhalation IH SCH (07:57)
[2018-04-09] MEDS: Insulin LISPRO 300 UNITS/3 ML VIAL SQ SCH ×4 (08:34→20:20)
[2018-04-09] MEDS: Aspirin Enteric Coated 81 MG Tablet PO SCH (10:36)
[2018-04-09] MEDS: Metoprolol XL (24 HR) Succ 25 MG TAB.ER.24H PO SCH (10:36)
[2018-04-09] MEDS: Furosemide 40 MG/4 ML VIAL IVP SCH ×2 (10:38→20:31)
[2018-04-09] MEDS: (Ezetimibe [Zetia] 10 MG) PO SCH (10:48)
--- NOTE | 2018-04-09 13:40 | Internal Med Progress Note ---
Hospitalist Progress Note - Encounter Date of Encounter: 04/09/18 Time of Encounter: 13:40 - Subjective Interval History: Patient seen and examined at bedside. Patient sitting in chair. Patient states that he is breathing much better than when he arrived to the emergency department. Patient denies any chest pain denies any palpitations, nausea, vomiting, diarrhea. Patient states that his abdomen is still very swollen but seems a little bit smaller than yesterday. - Exam Vitals: Temp Pulse Resp BP Pulse Ox 98.4 F 85 18 98/66 100 04/09/18 11:58 04/09/18 11:58 04/09/18 11:58 04/09/18 11:58 04/09/18 11:58 Exam: Constitutional: No acute distress, Alert Psych: AAO x 3 HEENT: NCAT, EOMI Neck: supple Cardio: regular rate and rhythm, +s1s2, no murmurs/rubs/gallops, positive JVD Resp: Decreased breath sounds with rales in bases Abd: Protuberant; soft, nontender, no guarding rebound or rigidity Extremities: Significant pitting edema in bilateral lower extremity is with chronic venous stasis Neuro: no focal deficits appreciated - Assessment and Plan (1) Acute on chronic systolic (congestive) heart failure Current Visit: Yes Status: Acute Assessment and Plan: He did have a significant elevation in his BNP and his clinical symptoms are consistent with an acute episode of heart failure likely secondary to nonadherence and his dietary habits have been poor as confirmed by him and his . 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 -Beta sage and MARILYNN inhibitor to be continued. -May need consideration for potassium sparing diuretic (3) HTN (hypertension) Current Visit: Yes Status: Chronic Assessment and Plan: Well-controlled -continue home meds (4) Diabetes Current Visit: Yes Status: Chronic Assessment and Plan: -Hold metformin for now -insulin sliding scale -Accu-Cheks. (5) Obesity Current Visit: Yes Status: Chronic Assessment and Plan: -nutrition consultation. (6) Elevated troponin Current Visit: Yes Status: Acute Assessment and Plan: In the setting of acute systolic failure likely secondary to myocardial strain and demand ischemia -Records reviewed show that he chronically has elevated troponins -Currently no clinical or electrocardiographic signs of acute ischemic disease -repeat troponin not rising, will stop trending (7) CAD (coronary artery disease) Current Visit: Yes Status: Chronic Assessment and Plan: -Stable. -Continue dual antiplatelet therapy. (8) Lower extremity edema Current Visit: Yes Status: Acute Assessment and Plan: -Secondary to venous stasis and congestive heart failure. -continue diuresis (9) DVT prophylaxis Current Visit: Yes Status: Acute Assessment and Plan: Subcutaneous heparin DVT Prophylaxis: hep sq - Summary of Assessment and Plan Summary of Assessment and Plan: continue diuresis - Time Spent with Patient Total time spent is greater than 50% in coordination of care (as documented) at patient's floor/unit and/or counseling patient: 25 - 35 minutes Plan of Care Discussed with: patient Internal Medicine: Result - Labs CBC & Chem 7: 04/09/18 04:40 04/09/18 04:40 Labs: Short CBC 04/09/18 Range/Units 04:40 WBC 8.2 (4.3-11.1) K/mcL Hgb 12.5 L (12.9-16.9) g/dL Hct 40.4 (37.5-50.1) % Plt Count 197 (140-400) K/mcL Neutrophils # 5.8 (1.6-8.9) K/mcL BMP 04/09/18 04:40 Sodium 132 L Potassium 4.3 Chloride 97 L Carbon Dioxide 30 H BUN 43 H Creatinine 1.13 Glucose 233 H Calcium 8.7 Cardiac Enzymes 04/09/18 Range/Units 04:40 Troponin I 0.07 H* (< 0.04) ng/mL Consult Discharge Plan - Plan (3) HTN (hypertension) Qualifiers: Hypertension type: essential hypertension Qualified Code(s): I10 - Essential (primary) hypertension (4) Diabetes Qualifiers: Diabetes mellitus type: type 2 Diabetes mellitus care home insulin use: without terminal supervisor use Diabetes mellitus complication status: with other specified complication Qualified Code(s): E11.69 - Type 2 diabetes mellitus with other specified complication (5) Obesity Qualifiers: Obesity type: due to excess calories Obesity classification: adult class 3 ( BMI >= 40) Serious obesity comorbidity presence: without serious comorbidity Body mass index: BMI 40.0-44.9 Qualified Code(s): E66.01 - Morbid (severe) obesity due to excess calories; Z68.41 - Body mass index (BMI) 40.0-44.9, adult (7) CAD (coronary artery disease) Qualifiers: Coronary Disease-Associated Artery/Lesion type: [place] artery [place] vs. transplanted heart: [place] heart Associated angina: without angina Qualified Code(s): I25.10 - Atherosclerotic heart disease of [place] coronary artery without angina pectoris
[2018-04-09] MEDS: Perphenazine 8 MG TABLET PO SCH (20:31)
[2018-04-10] MEDS: *HR* Heparin 5,000 UNIT/ML VIAL SQ SCH ×3 (05:45→20:49)
[2018-04-10] MEDS: Tiotropium 18 MCG inhalation IH SCH (07:32)
[2018-04-10 07:52] LABS: Basophils % 0.4 %; Eosinophils # 0.2 K/mcL (0.0-0.6); Hematocrit 42.1 % (37.5-50.1); Hemoglobin 12.9 g/dL (12.9-16.9); Immature Granulocytes % 0.3 % (0-4); Lymphocytes # 0.9 K/mcL (0.6-4.6); Lymphocytes % 11.2 %; Mean Corpuscular HGB Conc 30.6 g/dL (31.6-35.5); Mean Corpuscular Hemoglobin 30.8 pg (28.0-33.3); Mean Corpuscular Volume 100.5 fL (83.0-100.0); Mean Platelet Volume 10.3 fL (9.4-12.4); Monocytes # 0.9 K/mcL (0.0-1.3); Monocytes % 11.2 %; Neutrophils # 5.9 K/mcL (1.6-8.9); Platelet Count 183 K/mcL (140-400); Red Blood Count 4.19 M/mcL (4.19-5.50); Red Cell Distribution Width 16.9 % (11.5-14.5); Segmented Neutrophils % 74.9 %
[2018-04-10] MEDS: Metoprolol XL (24 HR) Succ 25 MG TAB.ER.24H PO SCH (08:30)
[2018-04-10] MEDS: Aspirin Enteric Coated 81 MG Tablet PO SCH (08:30)
[2018-04-10] MEDS: (Ezetimibe [Zetia] 10 MG) PO SCH (08:30)
[2018-04-10] MEDS: Furosemide 40 MG/4 ML VIAL IVP SCH (08:30)
[2018-04-10] MEDS: Insulin LISPRO 300 UNITS/3 ML VIAL SQ SCH ×4 (08:31→20:50)
[2018-04-10 09:19] LABS: BUN/Creatinine Ratio 34 (6-26); Blood Urea Nitrogen 46 mg/dL (8-23); Calcium 9.1 mg/dL (8.6-10.3); Carbon Dioxide 31 mEq/L (23-29); Chloride 96 mEq/L (98-107); Glucose 132 mg/dL (70-105); Osmolality,Calculated 294 (280-300); Phosphorous 5.1 mg/dL (2.7-4.5); Potassium 4.9 mEq/L (3.5-5.1); Sodium 135 mEq/L (136-145); eGFR For Non-African Americans 53 (> 60)
--- NOTE | 2018-04-10 09:22 | Internal Med Progress Note ---
Hospitalist Progress Note - Encounter Date of Encounter: 04/10/18 Time of Encounter: 09:18 - Subjective Interval History: Patient seen and examined at bedside. Patient sitting in onset of bed. Patient states that his breathing is improved and has swelling in his abdomen and lower extremities is improved. Patient states that his breathing is almost back to normal. Patient denies any chest pain, palpitations, nausea, vomiting, diarrhea. She has been afebrile. - Exam Vitals: Temp Pulse Resp BP Pulse Ox 98.1 F 83 19 96/55 98 04/10/18 06:46 04/10/18 06:46 04/10/18 06:46 04/10/18 06:46 04/10/18 06:46 Exam: Constitutional: No acute distress, Alert Psych: AAO x 3 HEENT: NCAT, EOMI Neck: supple Cardio: regular rate and rhythm, +s1s2, no murmurs/rubs/gallops, positive JVD Resp: Decreased breath sounds with rales in bases Abd: Protuberant; soft, nontender, no guarding rebound or rigidity, less abdominal edema today Extremities: Significant pitting edema in bilateral lower extremity is with chronic venous stasis; edema is improved from yesterday Neuro: no focal deficits appreciated - Assessment and Plan (1) Acute on chronic systolic (congestive) heart failure Current Visit: Yes Status: Acute Assessment and Plan: He did have a significant elevation in his BNP and his clinical symptoms are consistent with an acute episode of heart failure likely secondary to nonadherence and his dietary habits have been poor as confirmed by him and his . 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 -Beta sage and MARILYNN inhibitor to be continued. -May need consideration for potassium sparing diuretic but bp low normal currently (3) HTN (hypertension) Current Visit: Yes Status: Chronic Assessment and Plan: Well-controlled -continue home meds (4) Diabetes Current Visit: Yes Status: Chronic Assessment and Plan: -Hold metformin for now -insulin sliding scale -Accu-Cheks. (5) Obesity Current Visit: Yes Status: Chronic Assessment and Plan: -nutrition consultation. (6) Elevated troponin Current Visit: Yes Status: Acute Assessment and Plan: In the setting of acute systolic failure likely secondary to myocardial strain and demand ischemia -Records reviewed show that he chronically has elevated troponins -Currently no clinical or electrocardiographic signs of acute ischemic disease -repeat troponin not rising, will stop trending (7) CAD (coronary artery disease) Current Visit: Yes Status: Chronic Assessment and Plan: -Stable. -Continue dual antiplatelet therapy. (8) Lower extremity edema Current Visit: Yes Status: Acute Assessment and Plan: -Secondary to venous stasis and congestive heart failure. -continue diuresis -elevate LE when in bed (9) DVT prophylaxis Current Visit: Yes Status: Acute Assessment and Plan: Subcutaneous heparin DVT Prophylaxis: hep sq - Summary of Assessment and Plan Summary of Assessment and Plan: heart failure improving, continue diuresis; change to daily; follow up on am renal function and adjust as needed - Time Spent with Patient Total time spent is greater than 50% in coordination of care (as documented) at patient's floor/unit and/or counseling patient: 25 - 35 minutes Plan of Care Discussed with: patient Internal Medicine: Result - Labs CBC & Chem 7: 04/10/18 07:32 04/09/18 04:40 Labs: Short CBC 04/10/18 Range/Units 07:32 WBC 7.9 (4.3-11.1) K/mcL Hgb 12.9 (12.9-16.9) g/dL Hct 42.1 (37.5-50.1) % Plt Count 183 (140-400) K/mcL Neutrophils # 5.9 (1.6-8.9) K/mcL Consult Discharge Plan - Plan Referrals: Zackary Hale MD [Primary Care Provider] - (3) HTN (hypertension) Qualifiers: Hypertension type: essential hypertension Qualified Code(s): I10 - Essential (primary) hypertension (4) Diabetes Qualifiers: Diabetes mellitus type: type 2 Diabetes mellitus alf insulin use: without alf use Diabetes mellitus complication status: with other specified complication Qualified Code(s): E11.69 - Type 2 diabetes mellitus with other specified complication (5) Obesity Qualifiers: Obesity type: due to excess calories Obesity classification: adult class 3 ( BMI >= 40) Serious obesity comorbidity presence: without serious comorbidity Body mass index: BMI 40.0-44.9 Qualified Code(s): E66.01 - Morbid (severe) obesity due to excess calories; Z68.41 - Body mass index (BMI) 40.0-44.9, adult (7) CAD (coronary artery disease) Qualifiers: Coronary Disease-Associated Artery/Lesion type: [place] artery [place] vs. transplanted heart: [place] heart Associated angina: without angina Qualified Code(s): I25.10 - Atherosclerotic heart disease of [place] coronary artery without angina pectoris
[2018-04-10] MEDS: Perphenazine 8 MG TABLET PO SCH (20:50)
[2018-04-11] MEDS: *HR* Heparin 5,000 UNIT/ML VIAL SQ SCH ×3 (05:23→21:44)
[2018-04-11 08:09] LABS: Basophils % 0.5 %; Eosinophils # 0.2 K/mcL (0.0-0.6); Eosinophils % 2.4 %; Immature Granulocytes % 0.1 % (0-4); Lymphocytes # 0.9 K/mcL (0.6-4.6); Lymphocytes % 12.3 %; Mean Corpuscular HGB Conc 30.8 g/dL (31.6-35.5); Mean Corpuscular Hemoglobin 30.5 pg (28.0-33.3); Mean Platelet Volume 10.4 fL (9.4-12.4); Monocytes # 0.9 K/mcL (0.0-1.3); Monocytes % 11.8 %; Neutrophils # 5.4 K/mcL (1.6-8.9); Platelet Count 182 K/mcL (140-400); Red Blood Count 3.94 M/mcL (4.19-5.50); Red Cell Distribution Width 16.5 % (11.5-14.5); Segmented Neutrophils % 72.9 %
[2018-04-11] MEDS: Metoprolol XL (24 HR) Succ 25 MG TAB.ER.24H PO SCH (08:51)
[2018-04-11] MEDS: Aspirin Enteric Coated 81 MG Tablet PO SCH (08:51)
[2018-04-11] MEDS: Furosemide 40 MG/4 ML VIAL IVP SCH (08:51)
[2018-04-11] MEDS ORDERED: Lactulose Oral Soln 20 GM/30 ML UDC PO ONE (08:57)
[2018-04-11] MEDS: Insulin LISPRO 300 UNITS/3 ML VIAL SQ SCH ×4 (08:58→21:39)
[2018-04-11 09:49] LABS: BUN/Creatinine Ratio 38 (6-26); Blood Urea Nitrogen 48 mg/dL (8-23); Carbon Dioxide 36 mEq/L (23-29); Chloride 96 mEq/L (98-107); Glucose 173 mg/dL (70-105); Osmolality,Calculated 297 (280-300); Phosphorous 4.3 mg/dL (2.7-4.5); Potassium 4.7 mEq/L (3.5-5.1); Sodium 135 mEq/L (136-145); eGFR For Non-African Americans 57 (> 60)
--- NOTE | 2018-04-11 09:57 | Internal Med Progress Note ---
Hospitalist Progress Note - Encounter Date of Encounter: 04/11/18 Time of Encounter: 09:55 - Subjective Interval History: Patient seen and examined at bedside. Patient sitting in chair. He states that his breathing is improving however he is still very short of breath with exertion. Patient states that his abdomen seems to be getting smaller. Discussed paracentesis with patient but he would like to wait currently. Patient denies any chest pain, cough, nausea, vomiting, diarrhea. Patient is having constipation and lactulose given this morning. - Exam Vitals: Temp Pulse Resp BP Pulse Ox 97.9 F 87 18 119/78 100 04/11/18 07:40 04/11/18 07:40 04/11/18 07:40 04/11/18 07:40 04/11/18 07:40 Exam: Constitutional: No acute distress, Alert Psych: AAO x 3 HEENT: NCAT, EOMI Neck: supple Cardio: regular rate and rhythm, +s1s2, no murmurs/rubs/gallops, positive JVD Resp: Decreased breath sounds with rales in bases Abd: Protuberant; soft, nontender, no guarding rebound or rigidity, less abdominal edema today Extremities: 2+ pitting edema in bilateral lower extremity is with chronic venous stasis; right lower extremity with several ulcerations/popped blisters, right lower extrermity wtih 2 fluid filled blisters; no cellulitis Neuro: no focal deficits appreciated - Assessment and Plan (1) Acute on chronic systolic (congestive) heart failure Current Visit: Yes Status: Acute Assessment and Plan: He did have a significant elevation in his BNP and his clinical symptoms are consistent with an acute episode of heart failure likely secondary to nonadherence and his dietary habits have been poor as confirmed by him and his . 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 -Beta sage and MARILYNN inhibitor to be continued. -May need consideration for potassium sparing diuretic prior to dc -low normal bp yesterday; improved today (3) HTN (hypertension) Current Visit: Yes Status: Chronic Assessment and Plan: Well-controlled -continue home meds (4) Diabetes Current Visit: Yes Status: Chronic Assessment and Plan: -Hold metformin for now -insulin sliding scale -Accu-Cheks. (5) Obesity Current Visit: Yes Status: Chronic Assessment and Plan: -nutrition consultation. (6) Elevated troponin Current Visit: Yes Status: Acute Assessment and Plan: In the setting of acute systolic failure likely secondary to myocardial strain and demand ischemia -Records reviewed show that he chronically has elevated troponins -Currently no clinical or electrocardiographic signs of acute ischemic disease -repeat troponin not rising, will stop trending (7) CAD (coronary artery disease) Current Visit: Yes Status: Chronic Assessment and Plan: -Stable -Continue dual antiplatelet therapy (8) Lower extremity edema Current Visit: Yes Status: Acute Assessment and Plan: -Secondary to venous stasis and congestive heart failure. -continue diuresis -elevate LE when in bed -pt with ulcerations and blisters of lower extremities -consult wound care for recs (9) DVT prophylaxis Current Visit: Yes Status: Acute Assessment and Plan: Subcutaneous heparin DVT Prophylaxis: hep sq - Summary of Assessment and Plan Summary of Assessment and Plan: heart failure improving, continue daily diuresis, need strict Intake and output - Time Spent with Patient Total time spent is greater than 50% in coordination of care (as documented) at patient's floor/unit and/or counseling patient: 25 - 35 minutes Plan of Care Discussed with: patient Internal Medicine: Result - Labs CBC & Chem 7: 04/11/18 07:25 04/11/18 08:45 Labs: Short CBC 04/11/18 Range/Units 07:25 WBC 7.4 (4.3-11.1) K/mcL Hgb 12.0 L (12.9-16.9) g/dL Hct 39.0 (37.5-50.1) % Plt Count 182 (140-400) K/mcL Neutrophils # 5.4 (1.6-8.9) K/mcL BMP 04/11/18 08:45 Sodium 135 L Potassium 4.7 Chloride 96 L Carbon Dioxide 36 H BUN 48 H Creatinine 1.27 Glucose 173 H Calcium 9.0 Consult Discharge Plan - Plan Referrals: Alexia,Zackary Barth MD [Primary Care Provider] - (3) HTN (hypertension) Qualifiers: Hypertension type: essential hypertension Qualified Code(s): I10 - Essential (primary) hypertension (4) Diabetes Qualifiers: Diabetes mellitus type: type 2 Diabetes mellitus skilled nursing insulin use: without technician terminal and repeater use Diabetes mellitus complication status: with other specified complication Qualified Code(s): E11.69 - Type 2 diabetes mellitus with other specified complication (5) Obesity Qualifiers: Obesity type: due to excess calories Obesity classification: adult class 3 ( BMI >= 40) Serious obesity comorbidity presence: without serious comorbidity Body mass index: BMI 40.0-44.9 Qualified Code(s): E66.01 - Morbid (severe) obesity due to excess calories; Z68.41 - Body mass index (BMI) 40.0-44.9, adult (7) CAD (coronary artery disease) Qualifiers: Coronary Disease-Associated Artery/Lesion type: [place] artery [place] vs. transplanted heart: [place] heart Associated angina: without angina Qualified Code(s): I25.10 - Atherosclerotic heart disease of [place] coronary artery without angina pectoris
[2018-04-11] MEDS: Perphenazine 8 MG TABLET PO SCH (21:44)
--- NOTE | 2018-04-11 22:23 | Electrocardiograph Report ---
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
[2018-04-12] MEDS: *HR* Heparin 5,000 UNIT/ML VIAL SQ SCH ×3 (06:04→22:00)
[2018-04-12] MEDS: Aspirin Enteric Coated 81 MG Tablet PO SCH (08:13)
[2018-04-12] MEDS: Furosemide 40 MG/4 ML VIAL IVP SCH (08:13)
[2018-04-12] MEDS: Metoprolol XL (24 HR) Succ 25 MG TAB.ER.24H PO SCH (08:13)
[2018-04-12] MEDS: Insulin LISPRO 300 UNITS/3 ML VIAL SQ SCH ×4 (08:14→21:00)
[2018-04-12 10:56] LABS: INR 1.2; Prothrombin Time 13.8 Seconds (9.4-12.1)
[2018-04-12 11:03] LABS: Albumin 3.6 g/dL (3.5-5.7); Albumin/Globulin Ratio 1.3 (1.1-2.2); Globulin 2.7 g/dL (2.4-3.5); Total Protein 6.3 g/dL (6.4-8.9)
--- NOTE | 2018-04-12 13:50 | Internal Med Progress Note ---
Hospitalist Progress Note - Encounter Date of Encounter: 04/12/18 Time of Encounter: 09:50 - Subjective Interval History: Patient is sitting up in chair. Family present at bedside. They have noticed that he has been increasingly sleepy all through the day. At home he seems to be getting up at night and sitting up in his chair. Has not previously had workup done for sleep apnea. Also complains of increased abdominal distention and would want paracentesis done. - Exam Vitals: Temp Pulse Resp BP Pulse Ox 97.5 F L 89 18 124/83 100 04/12/18 11:31 04/12/18 11:31 04/12/18 11:31 04/12/18 11:31 04/12/18 11:31 Exam: General: Patient is somnolent but easily awakes no acute distress, oriented x 3 Chest: normal inspection, symmetric chest rise Respiratory: Good respiratory effort. Decreased breath sounds in both bases No wheezing or crackles. Cardiovascular: Regular rate and rhythm. s1 and s2 normal bilateral pedal edema Abdomen: Abdomen is soft, distended. nontender. Ascites present. Bowel sounds are present Musculoskeletal: Spontaneously moving all extremities Skin: warm, dry, intact. Neuro: Somnolent but easily awakes, normal cranial nerves, no focal deficits Psych: Patient's affect is flat - Assessment and Plan (1) Acute on chronic systolic (congestive) heart failure Current Visit: Yes Status: Acute Assessment and Plan: Continue Lasix intravenously. Urine output not accurately documented. Will monitor closely from now. Daily weights. Moderate risk for complications. (2) HTN (hypertension) Current Visit: Yes Status: Chronic Assessment and Plan: Well-controlled. Continue current medications (3) Diabetes Current Visit: Yes Status: Chronic Assessment and Plan: Blood sugars intermittently elevated. We will increase sliding scale regimen. (4) DVT prophylaxis Current Visit: Yes Status: Acute Assessment and Plan: Subcutaneous heparin (5) Obesity Current Visit: Yes Status: Chronic (6) Elevated troponin Current Visit: Yes Status: Acute Assessment and Plan: Believed to be due to demand ischemia. (7) CAD (coronary artery disease) Current Visit: Yes Status: Chronic Assessment and Plan: Continue aspirin, Plavix (8) 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 Current Visit: Yes Status: Acute (9) Lower extremity edema Current Visit: Yes Status: Acute Assessment and Plan: Continue Lasix. (10) Ascites Current Visit: Yes Status: Acute Assessment and Plan: Possibly from chronic heart failure. IR consulted for paracentesis. (11) Obstructive sleep apnea Current Visit: Yes Status: Suspected Assessment and Plan: Patient has symptoms of sleep apnea. Would recommend outpatient sleep study. CPAP use here when patient is lying down if tolerated. - Time Spent with Patient Total time spent is greater than 50% in coordination of care (as documented) at patient's floor/unit and/or counseling patient: Internal Medicine: Result - Labs CBC & Chem 7: 04/11/18 07:25 04/11/18 08:45 Labs: Liver Function 04/12/18 Range/Units 10:29 Albumin 3.6 (3.5-5.7) g/dL - ABG Interpretation ABG results: PT/INR, D-dimer PT 13.8 Seconds (9.4-12.1) H 04/12/18 10:31 Consult Discharge Plan - Plan Referrals: Ucci,Zackary Barth MD [Primary Care Provider] - (2) HTN (hypertension) Qualifiers: Hypertension type: essential hypertension Qualified Code(s): I10 - Essential (primary) hypertension (3) Diabetes Qualifiers: Diabetes mellitus type: type 2 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: without fpc use Diabetes mellitus complication status: with other specified complication Qualified Code(s): E11.69 - Type 2 diabetes mellitus with other specified complication (5) Obesity Qualifiers: Obesity type: due to excess calories Obesity classification: adult class 3 ( BMI >= 40) Serious obesity comorbidity presence: without serious comorbidity Body mass index: BMI 40.0-44.9 Qualified Code(s): E66.01 - Morbid (severe) obesity due to excess calories; Z68.41 - Body mass index (BMI) 40.0-44.9, adult (7) CAD (coronary artery disease) Qualifiers: Coronary Disease-Associated Artery/Lesion type: [place] artery [place] vs. transplanted heart: [place] heart Associated angina: without angina Qualified Code(s): I25.10 - Atherosclerotic heart disease of [place] coronary artery without angina pectoris (10) Ascites Qualifiers: Ascites type: other type Qualified Code(s): R18.8 - Other ascites
[2018-04-12] MEDS: Perphenazine 8 MG TABLET PO SCH (19:42)
[2018-04-13] MEDS: *HR* Heparin 5,000 UNIT/ML VIAL SQ SCH ×3 (05:11→21:03)
[2018-04-13 06:46] LABS: Basophils % 0.4 %; Eosinophils # 0.3 K/mcL (0.0-0.6); Eosinophils % 3.6 %; Hematocrit 40.6 % (37.5-50.1); Hemoglobin 12.2 g/dL (12.9-16.9); Immature Granulocytes % 0.3 % (0-4); Lymphocytes # 0.7 K/mcL (0.6-4.6); Lymphocytes % 9.4 %; Mean Corpuscular Hemoglobin 30.4 pg (28.0-33.3); Mean Corpuscular Volume 101.2 fL (83.0-100.0); Mean Platelet Volume 10.1 fL (9.4-12.4); Monocytes # 0.8 K/mcL (0.0-1.3); Monocytes % 11.3 %; Neutrophils # 5.2 K/mcL (1.6-8.9); Platelet Count 165 K/mcL (140-400); Red Blood Count 4.01 M/mcL (4.19-5.50); Red Cell Distribution Width 16.6 % (11.5-14.5)
[2018-04-13 07:06] LABS: BUN/Creatinine Ratio 38 (6-26); Blood Urea Nitrogen 42 mg/dL (8-23); Calcium 9.1 mg/dL (8.6-10.3); Carbon Dioxide 36 mEq/L (23-29); Chloride 98 mEq/L (98-107); Glucose 141 mg/dL (70-105); Osmolality,Calculated 301 (280-300); Potassium 4.8 mEq/L (3.5-5.1); Sodium 139 mEq/L (136-145); eGFR For Non-African Americans > 60 (> 60)
[2018-04-13] MEDS: Insulin LISPRO 300 UNITS/3 ML VIAL SQ SCH ×4 (07:52→20:59)
[2018-04-13] MEDS ORDERED: Furosemide 40 MG/4 ML VIAL IVP SCH (09:00)
[2018-04-13] MEDS: Aspirin Enteric Coated 81 MG Tablet PO SCH (09:57)
[2018-04-13] MEDS: Metoprolol XL (24 HR) Succ 25 MG TAB.ER.24H PO SCH (09:57)
[2018-04-13] MEDS: Furosemide 40 MG/4 ML VIAL IVP SCH ×2 (10:27→17:44)
--- NOTE | 2018-04-13 15:13 | Internal Med Progress Note ---
Hospitalist Progress Note - Encounter Date of Encounter: 04/13/18 Time of Encounter: 09:45 - Subjective Interval History: Patient is awake and alert. Sitting up in chair. Complains of distended abdomen. Does continue to have bilateral lower extremity swelling. The paracentesis was attempted yesterday but patient did not have enough ascites fluid so procedure was canceled. He has not had a bowel movement for the past 2 -3 days. Denies any chest pain or shortness of breath at this time. - Exam Vitals: Temp Pulse Resp BP Pulse Ox 96.9 F L 103 18 136/81 99 04/13/18 11:48 04/13/18 11:48 04/13/18 11:48 04/13/18 11:48 04/13/18 11:48 Exam: General: Patient is awake and alert. Mild distress. Respiratory: Good respiratory effort. Decreased breath sounds in both bases No wheezing or crackles. Cardiovascular: Regular rate and rhythm. s1 and s2 normal . Patient has bilateral pedal edema with blister on the dorsum of left foot. Abdomen: Abdomen is soft, distended. nontender. Ascites present. Bowel sounds are present Musculoskeletal: Spontaneously moving all extremities Skin: warm, dry, intact. Neuro: normal cranial nerves, no focal deficits Psych: Patient's affect is flat - Assessment and Plan (1) Acute on chronic systolic (congestive) heart failure Current Visit: Yes Status: Acute Assessment and Plan: Will increase Lasix dose as patient continues to have bilateral lower extremity swelling. Unable to obtain accurate I&O's because patient noncompliant. We will monitor daily weights. Patient remains fluid overloaded at this time. (2) HTN (hypertension) Current Visit: Yes Status: Chronic Assessment and Plan: Blood pressure is well controlled at this time. Continue metoprolol (3) Diabetes Current Visit: Yes Status: Chronic Assessment and Plan: Slightly elevated. Will add long-acting insulin (4) DVT prophylaxis Current Visit: Yes Status: Acute Assessment and Plan: On subcutaneous heparin (5) Obesity Current Visit: Yes Status: Chronic (6) Elevated troponin Current Visit: Yes Status: Acute Assessment and Plan: Chronic adynamic troponin elevation. No further workup needed at this time (7) CAD (coronary artery disease) Current Visit: Yes Status: Chronic Assessment and Plan: On aspirin, Plavix (8) 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 Current Visit: Yes Status: Acute Assessment and Plan: Management as above (9) Lower extremity edema Current Visit: Yes Status: Acute Assessment and Plan: Will increase Lasix dose to 40 mg twice daily. (10) Ascites Current Visit: Yes Status: Acute (11) Obstructive sleep apnea Current Visit: Yes Status: Suspected Assessment and Plan: recommend outpatient sleep study. - Time Spent with Patient Total time spent is greater than 50% in coordination of care (as documented) at patient's floor/unit and/or counseling patient: Internal Medicine: Result - Labs CBC & Chem 7: 04/13/18 06:12 04/13/18 06:12 Labs: Short CBC 04/13/18 Range/Units 06:12 WBC 6.9 (4.3-11.1) K/mcL Hgb 12.2 L (12.9-16.9) g/dL Hct 40.6 (37.5-50.1) % Plt Count 165 (140-400) K/mcL Neutrophils # 5.2 (1.6-8.9) K/mcL BMP 04/13/18 06:12 Sodium 139 Potassium 4.8 Chloride 98 Carbon Dioxide 36 H BUN 42 H Creatinine 1.10 Glucose 141 H Calcium 9.1 - ABG Interpretation ABG results: PT/INR, D-dimer PT 13.8 Seconds (9.4-12.1) H 04/12/18 10:31 Consult Discharge Plan - Plan Referrals: Ucci,Zackary Barth MD [Primary Care Provider] - (2) HTN (hypertension) Qualifiers: Hypertension type: essential hypertension Qualified Code(s): I10 - Essential (primary) hypertension (3) Diabetes Qualifiers: Diabetes mellitus type: type 2 Diabetes mellitus nursing home insulin use: without long term care pharmacist use Diabetes mellitus complication status: with other specified complication Qualified Code(s): E11.69 - Type 2 diabetes mellitus with other specified complication (5) Obesity Qualifiers: Obesity type: due to excess calories Obesity classification: adult class 3 ( BMI >= 40) Serious obesity comorbidity presence: without serious comorbidity Body mass index: BMI 40.0-44.9 Qualified Code(s): E66.01 - Morbid (severe) obesity due to excess calories; Z68.41 - Body mass index (BMI) 40.0-44.9, adult (7) CAD (coronary artery disease) Qualifiers: Coronary Disease-Associated Artery/Lesion type: [place] artery [place] vs. transplanted heart: [place] heart Associated angina: without angina Qualified Code(s): I25.10 - Atherosclerotic heart disease of [place] coronary artery without angina pectoris (10) Ascites Qualifiers: Ascites type: other type Qualified Code(s): R18.8 - Other ascites
[2018-04-13] MEDS ORDERED: Metoprolol XL (24 HR) Succ 25 MG TAB.ER.24H PO ONE (15:24)
[2018-04-13] MEDS: Perphenazine 8 MG TABLET PO SCH (21:02)
[2018-04-13] MEDS: Lactulose Oral Soln 20 GM/30 ML UDC PO SCH (21:03)
[2018-04-14] MEDS: *HR* Heparin 5,000 UNIT/ML VIAL SQ SCH ×2 (04:18→14:16)
[2018-04-14 05:56] LABS: Basophils # 0.1 K/mcL (0.0-0.2); Basophils % 0.8 %; Eosinophils # 0.2 K/mcL (0.0-0.6); Eosinophils % 2.7 %; Hematocrit 37.4 % (37.5-50.1); Hemoglobin 11.3 g/dL (12.9-16.9); Immature Granulocytes % 0.3 % (0-4); Lymphocytes # 0.9 K/mcL (0.6-4.6); Lymphocytes % 12.8 %; Mean Corpuscular HGB Conc 30.2 g/dL (31.6-35.5); Mean Corpuscular Hemoglobin 29.5 pg (28.0-33.3); Mean Corpuscular Volume 97.7 fL (83.0-100.0); Mean Platelet Volume 10.4 fL (9.4-12.4); Monocytes # 0.7 K/mcL (0.0-1.3); Monocytes % 10.8 %; Neutrophils # 4.8 K/mcL (1.6-8.9); Platelet Count 182 K/mcL (140-400); Red Blood Count 3.83 M/mcL (4.19-5.50); Red Cell Distribution Width 16.6 % (11.5-14.5); Segmented Neutrophils % 72.6 %
[2018-04-14 06:55] LABS: BUN/Creatinine Ratio 39 (6-26); Blood Urea Nitrogen 43 mg/dL (8-23); Carbon Dioxide 34 mEq/L (23-29); Chloride 99 mEq/L (98-107); Glucose 115 mg/dL (70-105); Osmolality,Calculated 302 (280-300); Potassium 4.9 mEq/L (3.5-5.1); Sodium 140 mEq/L (136-145); eGFR For Non-African Americans > 60 (> 60)
[2018-04-14 08:20] LABS: Calcium 9.1 mg/dL (8.6-10.3)
[2018-04-14] MEDS: Insulin LISPRO 300 UNITS/3 ML VIAL SQ SCH ×2 (08:43→12:24)
[2018-04-14] MEDS: Aspirin Enteric Coated 81 MG Tablet PO SCH (08:56)
[2018-04-14] MEDS: Furosemide 40 MG/4 ML VIAL IVP SCH (08:58)
[2018-04-14] MEDS: Lactulose Oral Soln 20 GM/30 ML UDC PO SCH (08:59)
[2018-04-14] MEDS ORDERED: Metoprolol XL (24 HR) Succ 25 MG TAB.ER.24H PO SCH (09:00)
--- NOTE | 2018-04-14 11:33 | Discharge Summary ---
- NOTES TO OUTPATIENT PROVIDER Notes to Outpatient Provider: Patient was hospitalized here with acute on chronic systolic congestive heart failure with fluid overload and lower extremity edema. He was treated with IV diuretics. He also had mildly elevated troponin which was likely related to demand ischemia. Patient has had good diuresis here although he is an improvement in his lower extremity edema. He did have abdominal distention but ultrasound of the abdomen did not show any significant ascites. He has now improved and is stable to be discharged home. He will continue to have home health and nurse visits to help manage his congestive heart failure. Patient also has underlying hepatic encephalopathy and has been placed on lactulose. Patient will follow up with cardiology and his primary care provider for further management of his CHF. Orders not resulted at time of discharge: Pending orders 04/12/18 10:16 Amylase,Peritoneal Fluid [BF] Stat Cell Cnt w Dif, Peritoneal Fl [BF] Stat Glucose,Peritoneal Fluid [BF] Stat LDH,Peritoneal Fluid [BF] Stat Total Protein,Peritoneal Fluid [BF] Stat 04/12/18 10:18 Albumin,Body Fluid Stat Date of Encounter: 04/14/18 Time of Encounter: 11:30 - Discharge Diagnosis (1) Acute on chronic systolic (congestive) heart failure Priority: Primary Status: Acute (2) HTN (hypertension) Priority: Secondary Status: Chronic Qualifiers: Hypertension type: essential hypertension Qualified Code(s): I10 - Essential (primary) hypertension (3) Diabetes Priority: Secondary Status: Chronic Qualifiers: Diabetes mellitus type: type 2 Diabetes mellitus custodial insulin use: without terminal make up operator use Diabetes mellitus complication status: with other specified complication Qualified Code(s): E11.69 - Type 2 diabetes mellitus with other specified complication (4) DVT prophylaxis Priority: Secondary Status: Acute (5) Obesity Priority: Secondary Status: Chronic Qualifiers: Obesity type: due to excess calories Obesity classification: adult class 3 (BMI >= 40) Serious obesity comorbidity presence: without serious comorbidity Body mass index: BMI 40.0-44.9 Qualified Code(s): E66.01 - Morbid (severe) obesity due to excess calories; Z68.41 - Body mass index (BMI) 40.0-44.9, adult (6) Elevated troponin Priority: Secondary Status: Acute (7) CAD (coronary artery disease) Priority: Secondary Status: Chronic Qualifiers: Coronary Disease-Associated Artery/Lesion type: [place] artery [place] vs. transplanted heart: [place] heart Associated angina: without angina Qualified Code(s): I25.10 - Atherosclerotic heart disease of [place] coronary artery without angina pectoris (8) 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 Priority: Secondary Status: Acute (9) Lower extremity edema Priority: Secondary Status: Acute (10) Ascites Priority: Secondary Status: Acute Qualifiers: Ascites type: other type Qualified Code(s): R18.8 - Other ascites (11) Obstructive sleep apnea Priority: Secondary Status: Suspected Hospital course: Mr. Emmanuel is a 62 year old male Patient with history of cardiomyopathy with AICD, diabetes, hypertension, COPD and chronic respiratory failure on 2 L nasal cannula who was hospitalized here with acute on chronic systolic congestive heart failure with fluid overload and lower extremity edema. He was treated with IV diuretics. He also had mildly elevated troponin which was likely related to demand ischemia. Patient has had good diuresis here although he is an improvement in his lower extremity edema. He did have abdominal distention but ultrasound of the abdomen did not show any significant ascites. He has now improved and is stable to be discharged home. He will continue to have home health and nurse visits to help manage his congestive heart failure. Patient also has underlying hepatic encephalopathy and has been placed on lactulose. Patient will follow up with cardiology and his primary care provider for further management of his CHF. Patient has been having recurrent hospital admissions from CHF most likely due to poor education and compliance with fluid restriction and medication management. He needs close follow-up with his primary care provider. He may also have underlying sleep apnea and would benefit from sleep study which will be arranged as outpatient. Discharge discussed with: patient, family, nurse - Time Spent with Patient Total time spent providing and/or coordinating discharge services: Greater than 30 minutes (45 min) - Discharge Medications Prescriptions: Lactulose 20 gm PO BID #60 [facility] [place] Home Medications: Albuterol Sulfate [Albuterol Inhaler] 2 puff IH Q4HR PRN 05/17/15 [History] Ezetimibe [Zetia] 10 mg PO DAILY 05/17/15 [History] Metformin HCl [Glucophage] 1,000 mg PO BID 05/17/15 [History] Tiotropium [Spiriva] 18 mcg IH DAILY 05/17/15 [History] Clopidogrel [Plavix] 75 mg PO DAILY 10/27/17 [History] Lisinopril [Zestril] 2.5 mg PO DAILY PRN 10/27/17 [History] Metoprolol Succinate [Toprol Xl] 25 mg PO DAILY 10/27/17 [History] Lipase/Protease/Amylase [Omid Dr 12,000 Units Capsule] 1 cap PO BIDWM 11/10/17 [History] Cholestyramine 4 g PO BID 01/24/18 [History] Perphenazine [Trilafon] 8 mg PO HS 01/24/18 [History] Tamsulosin [Flomax] 0.4 mg PO DAILY #30 capsule 02/04/18 [Rx] Bacitracin OINT [Ak-Tracin] 1 appl TP BID 30 Days #1 tube 03/23/18 [Rx] Nystatin Cream [Mycostatin Cream] 1 appl TP BID 30 Days #1 tube 03/23/18 [Rx] Aspirin [Lo-Dose Aspirin EC] 81 mg PO DAILY 04/09/18 [History] Furosemide [Lasix] 40 mg PO BID 04/09/18 [History] Lactulose 20 gm PO BID #60 udc 04/14/18 [Rx] Allergies/Adverse Reactions: 3 Allergy/AdvReac Type Severity Reaction Status Date / Time loxapine [From Loxitane] Allergy See Verified 04/08/18 22:12 Comments betamethasone AdvReac Hives Verified 04/08/18 22:12 [From Lotrisone] clotrimazole [From Lotrisone] AdvReac Hives Verified 04/08/18 22:12 Sulfa (Sulfonamide AdvReac Hives Verified 04/08/18 22:12 Antibiotics) Date of admission: 04/10/18 10:43 Primary care physician: Zackary Hale MD Consults: 04/11/18 10:04 Consult to Wound Care [CONS] Routine Reason for Consult: bilateral lower leg wounds Call Completed: No 04/14/18 09:03 Consult to Occupational Therapy [CONS] Routine Comment: Evaluate, develop and implement POC Reason for Consult: weakness, safe to d/c home Does patient have active BEDREST order?: No Is patient medically & hemodynamically stable?: Yes Consult to Physical Therapy [CONS] Routine Comment: Evaluate, develop and implement POC Reason for Consult: weakness, safe to d/c home Does patient have active BEDREST order?: No Is patient medically & hemodynamically stable?: Yes Discharging clinician: Chacho Martinez Anticipated date of discharge: 04/14/18 - Constitutional Vitals: Temp Pulse Resp BP Pulse Ox 98.0 F 98 17 115/76 99 04/14/18 07:04 04/14/18 07:04 04/14/18 07:04 04/14/18 07:04 04/14/18 07:04 General appearance: Present: cooperative, A&O X 3, answers questions appropriately Exam: General: Patient is alert, no acute distress, oriented x 3 Respiratory: Good respiratory effort. Normal breath sounds. No wheezing or crackles. Cardiovascular: Regular rate and rhythm. s1 and s2 normal No clicks, rubs, gallops, or murmurs. Bilateral pitting pedal edema improving Abdomen: Abdomen is soft, nontender. Bowel sounds are present Musculoskeletal: Spontaneously moving all extremities Skin: warm, dry, intact. Neuro: Alert oriented x 3 normal cranial nerves, no focal deficits - Patient Status Disposition: Home Health Service Condition: Good Functional capacity at discharge: uses cane/walker Overall status at discharge: patient is progressing back to baseline - Discharge Instructions Instructions: Heart Failure (DC), Chronic Hypertension (DC), Diabetes Mellitus Type 2 in Adults (DC) Follow Up With: Zackary Hale MD [Primary Care Provider] - 04/21/18 9:00 am (Please follow up as schedule...) Zackary Alejandro MD [Partnered Physician] - (In 1 week) Forms: ED Satisfaction Letter - Diet and Activity Activity: increase activity as tolerated, wear oxygen at all times Diet: diabetic diet, low fat, low cholesterol, low salt diet, other (Strict fluid restriction to 1.5 L per day)
[2018-04-14 11:37] VITALS: BP 119/68
--- NOTE | 2018-04-14 11:42 | Physician Discharge Referral ---
Home Health/Hosp Referral Info Transfer to: Home Health Provider in Charge Post Discharge: PCP - Diagnosis (1) Acute on chronic systolic (congestive) heart failure Priority: Primary Status: Acute (2) HTN (hypertension) Priority: Secondary Status: Chronic (3) Diabetes Priority: Secondary Status: Chronic (4) DVT prophylaxis Priority: Secondary Status: Acute (5) Obesity Priority: Secondary Status: Chronic (6) Elevated troponin Priority: Secondary Status: Acute (7) CAD (coronary artery disease) Priority: Secondary Status: Chronic (8) 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 Priority: Secondary Status: Acute (9) Lower extremity edema Priority: Secondary Status: Acute (10) Ascites Priority: Secondary Status: Acute (11) Obstructive sleep apnea Priority: Secondary Status: Suspected - Respiratory Orders Oxygen / L per min (2) Smoking Cessation: Smoking cessation has been advised. For more information, call the [place] [employer] Line at [phone]-NOW. - Diet/Nutrition Diet/Nutrition Orders: No Added Salt (EDGAR), Cardiac Diet/Nutrition: List: Strict fluid restriction to 1.5 L per day - Activity Activity Orders: Walker - Services Needed Following services are medically necessary services: Nursing, Home Health Aide, Physical Therapy, Occupational Therapy Home Care Orders: Monitor weight - Transfer Medications Prescriptions: Lactulose 20 gm PO BID #60 udc Home Medications: Albuterol Sulfate [Albuterol Inhaler] 2 puff IH Q4HR PRN 05/17/15 [History] Ezetimibe [Zetia] 10 mg PO DAILY 05/17/15 [History] Metformin HCl [Glucophage] 1,000 mg PO BID 05/17/15 [History] Tiotropium [Spiriva] 18 mcg IH DAILY 05/17/15 [History] Clopidogrel [Plavix] 75 mg PO DAILY 10/27/17 [History] Lisinopril [Zestril] 2.5 mg PO DAILY PRN 10/27/17 [History] Metoprolol Succinate [Toprol Xl] 25 mg PO DAILY 10/27/17 [History] Lipase/Protease/Amylase [[place] Dr 12,000 Units Capsule] 1 cap PO BIDWM 11/10/17 [History] Cholestyramine 4 g PO BID 01/24/18 [History] Perphenazine [Trilafon] 8 mg PO HS 01/24/18 [History] Tamsulosin [Flomax] 0.4 mg PO DAILY #30 capsule 02/04/18 [Rx] Bacitracin OINT [Ak-Tracin] 1 appl TP BID 30 Days #1 tube 03/23/18 [Rx] Nystatin Cream [Mycostatin Cream] 1 appl TP BID 30 Days #1 tube 03/23/18 [Rx] Aspirin [Lo-Dose Aspirin EC] 81 mg PO DAILY 04/09/18 [History] Furosemide [Lasix] 40 mg PO BID 04/09/18 [History] Lactulose 20 gm PO BID #60 udc 04/14/18 [Rx] Allergies/Adverse Reactions: 3 Allergy/AdvReac Type Severity Reaction Status Date / Time loxapine [From Loxitane] Allergy See Verified 04/08/18 22:12 Comments betamethasone AdvReac Hives Verified 04/08/18 22:12 [From Lotrisone] clotrimazole [From Lotrisone] AdvReac Hives Verified 04/08/18 22:12 Sulfa (Sulfonamide AdvReac Hives Verified 04/08/18 22:12 Antibiotics) Certification: Further, I certify that my clinical findings support that this patient is homebound (i.e. absences from home require considerable and taxing effort and are for medical reasons or [facility] services or infrequently or short duration when for other reasons) because: Homebound Reason: Patient requires assistance of a person or device to safely leave home Attestation: My signature below is to certify that this patient is under my care and that I, or nurse practitioner, or a physician's trust manager assistant working with me, has a face-to -face encounter with this patient.
== END 2018-04-14 14:30 | disposition home health service (06) | DRG 292 ==
LOC: EMEROOARM 19:04 → 2ANU 19:04 → SUATTDRO 04-10 10:43
PROVIDERS: ADMIT Internal Medicine; ATTEND Internal Medicine

== ENCOUNTER 2018-04-16 10:45 | Inpatient (IN) ==
[2018-04-16] MEDS ORDERED: Ipratropium/Albuterol Neb 3 ML IH ONE (11:04)
[2018-04-16] MEDS ORDERED: Isovue-370 500 ML INFUS..BTL IV ONE (11:04)
--- NOTE | 2018-04-16 11:21 | Emergency Department Note ---
Disposition Clinical Impression: Hepatic encephalopathy, Acute kidney injury, Elevated troponin, Hyperkalemia CHF exacerbation Qualifiers: Heart failure type: unspecified Qualified Code(s): I50.9 - Heart failure, unspecified Disposition: Admitted As Inpatient Condition: Fair Abdominal Pain HPI - General Chief Complaint: ED Abdominal Pain Stated Complaint: belly pain Time Seen by Provider: 04/16/18 11:00 Source: patient Mode of arrival: ambulatory Limitations: no limitations Nursing Notes Reviewed: Yes Vital Signs Reviewed: Yes - History of Present Illness HPI Narrative: Patient presents today via EMS from home for evaluation of generalized weakness. Patient did have a recent stay within the hospital where I have looked at the discharge summary and my summary of that is dictated below. Appears to be CHF exacerbation which improved with diuretics. Patient states pain in the abdomen as well as the legs. Patient has significant peaking edema including seepage of serous fluid from legs. Blisters are present to the legs. The abdomen is soft with no peritoneal signs however he does complain of significant tenderness. I have looked in the chart and he has had 6 [address] scans within this year. The patient does appear to be somewhat jaundiced. Labs have been sent down for this. He states that he continues to have shortness of breath at home despite his home oxygen which she has turned up to 4-5 L. The patient states that he has had a cough without significant sputum production. No specific fevers. Pain Scale: 10 - Related Data Home Medications Medication Instructions Recorded Confirmed Albuterol Sulfate [Albuterol 2 puff IH Q4HR PRN 05/17/15 04/16/18 Inhaler] Ezetimibe [Zetia] 10 mg PO DAILY 05/17/15 04/16/18 Metformin HCl [Glucophage] 1,000 mg PO BID 05/17/15 04/16/18 Tiotropium [Spiriva] 18 mcg IH DAILY 05/17/15 04/16/18 Clopidogrel [Plavix] 75 mg PO DAILY 10/27/17 04/16/18 Lisinopril [Zestril] 2.5 mg PO DAILY PRN 10/27/17 04/16/18 Metoprolol Succinate [Toprol Xl] 25 mg PO DAILY 10/27/17 04/16/18 Lipase/Protease/Amylase [Omid Dr 1 cap PO BIDWM 11/10/17 04/16/18 12,000 Units Capsule] Cholestyramine 4 g PO BID 01/24/18 04/16/18 Perphenazine [Trilafon] 8 mg PO HS 01/24/18 04/16/18 Aspirin [Lo-Dose Aspirin EC] 81 mg PO DAILY 04/09/18 04/16/18 Furosemide [Lasix] 40 mg PO BID 04/09/18 04/16/18 Previous Rx's Medication Instructions Recorded Tamsulosin [Flomax] 0.4 mg PO DAILY #30 capsule 02/04/18 Bacitracin OINT [Ak-Tracin] 1 appl TP BID 30 Days #1 tube 03/23/18 Nystatin Cream [Mycostatin Cream] 1 appl TP BID 30 Days #1 tube 03/23/18 Lactulose 20 gm PO BID #60 udc 04/14/18 Allergies Allergy/AdvReac Type Severity Reaction Status Date / Time loxapine [From Loxitane] Allergy See Verified 04/16/18 10:55 Comments betamethasone AdvReac Hives Verified 04/16/18 10:55 [From Lotrisone] clotrimazole [From Lotrisone] AdvReac Hives Verified 04/16/18 10:55 Sulfa (Sulfonamide AdvReac Hives Verified 04/16/18 10:55 Antibiotics) Review of Systems: CONSTITUTIONAL: Chills, weakness and fatigue HEENT: Eyes: No visual changes. Ears, Nose, Throat: No hearing loss, difficulty talking or unable to swallow. SKIN: No rash or itching. CARDIOVASCULAR: No chest pain, chest pressure or chest discomfort. No palpitations or edema. RESPIRATORY: Shortness of breath with cough but no sputum production. GASTROINTESTINAL: No anorexia, nausea, vomiting or diarrhea. No abdominal pain or blood. GENITOURINARY: Decreased urination NEUROLOGICAL: No headache, dizziness, syncope, paralysis, ataxia, numbness or tingling in the extremities. No change in bowel or bladder control. MUSCULOSKELETAL: Generalized body aches. Abdominal Pain PMH - Past Medical History Medical history: Reports: cancer, cardiomyopathy, COPD, coronary artery disease , diabetes, hyperlipidemia, hypertension, myocardial infarction, other Male Surgical History: Reports: angioplasty/stent, herniorrhaphy, other Psychiatric history: Reports: no psych history - Social History Smoking status: Current every day smoker Alcohol use: Reports: none Drug use: Reports: none Physical Exam General: Mild distress secondary to pain and fatigue. Head: Normocephalic Atraumatic Eyes: PERRL, EOMI ENT: Airway patent, no stridor Neck: supple, no meningismus Chest: Mild rales and expiratory wheezing worse at the bases bilaterally Cardiac: Regular rhythm Abdomen: soft, mild generalized tenderness, nondistended; no guarding, rebound, or tenderness to percussion Musculoskeletal: Significant swelling of the lower extremities including pitting edema and blistering with serous drainage of fluid. Skin: Skin blisters the lower extremities Neuro: Alert and Oriented to person, place, and time; No focal deficit, Course Course Narrative: Please see complete hospital discharge summary for further details. Summary of recent discharge summary. Hospitalized for acute on chronic systolic heart failure with fluid overload and lower extremity edema. Treated with diuretics. Mildly elevated troponin. Abdominal distention did not show any significant ascites. Underlying hepatic encephalopathy and placed on lactulose. Patient was told to follow-up with cardiology. - Reevaluation(s) Reevaluation #1: Patient has had multiple requests the emergency department including getting up to go to the bedside chair as well as the commode. Patient has requested ice water. Patient does have signs of hepatic encephalopathy as he easily forgets who was just in the room. Reevaluation #2: CT scan with no significant change. The patient discussed with nurse that he does not want to have any sort of surgery. The nonspecific findings within his abdomen may need to continue to be followed however given that he does not want to have surgery, may be better to just trend labs. The patient cirrhosis is unknown at this time. Patient's hepatic encephalopathy is coming from something that I have not been able to find within a chart check to further explain this. CHF is worse. Kidney function is worse. Patient here today specifically because he feels worse and cannot lay down flat. Patient will need further treatment and evaluation. We will discuss with hospitalist. - Consultations Consultation #1: Discussed with hospitalist. Patient accepted for admission. Vital Signs O2 Sat by Pulse Oximetry 98 04/16/18 10:56 Temperature 98.6 F 04/16/18 10:59 Pulse Rate 96 04/16/18 17:33 Respiratory Rate 24 04/16/18 17:33 Blood Pressure 103/87 04/16/18 17:33 O2 Sat by Pulse Oximetry 99 04/16/18 17:33 Oxygen Delivery Oxygen Delivery Nasal Cannula Abdominal Pain - Medical Records Medical records reviewed: Yes I reviewed the patient's medical records. - Lab Data Lab results reviewed: Yes I reviewed the patient's lab results. Result diagrams: 04/16/18 11:16 04/16/18 11:16 Lab Results 04/16/18 04/16/18 04/16/18 Range/Units 11:16 11:16 11:16 WBC 7.8 (4.3-11.1) K/mcL RBC 4.11 L (4.19-5.50) M/mcL Hgb 12.6 L (12.9-16.9) g/dL Hct 40.6 (37.5-50.1) % MCV 98.8 (83.0-100.0) fL MCH 30.7 (28.0-33.3) pg MCHC 31.0 L (31.6-35.5) g/dL RDW 16.6 H (11.5-14.5) % Plt Count 226 (140-400) K/mcL MPV 10.6 (9.4-12.4) fL Immature Gran % 0.4 (0-4) % Seg Neutrophils % 75.7 % Lymphocytes % 12.0 % Monocytes % 10.5 % Eosinophils % 0.9 % Basophils % 0.5 % Neutrophils # 5.9 (1.6-8.9) K/mcL Lymphocytes # 0.9 (0.6-4.6) K/mcL Monocytes # 0.8 (0.0-1.3) K/mcL Eosinophils # 0.1 (0.0-0.6) K/mcL Basophils # 0.0 (0.0-0.2) K/mcL PT 16.5 H (9.4-12.1) Seconds INR 1.5 Sodium 133 L (136-145) mEq/L Potassium 5.6 H (3.5-5.1) mEq/L Chloride 93 L (98-107) mEq/L Carbon Dioxide 31 H (23-29) mEq/L BUN 70 H (8-23) mg/dL Creatinine 1.65 H (0.70-1.30) mg/dL Est GFR ( Amer) 51 L (> 60) Est GFR (Non-Af Amer) 42 L (> 60) BUN/Creatinine Ratio 42 H (6-26) Glucose 178 H (70-105) mg/dL Calculated Osmolality 301 H (280-300) Lactic Acid (0.5-2.2) mmol/L Calcium 9.1 (8.6-10.3) mg/dL Total Bilirubin 1.5 H (0.3-1.0) mg/dL Direct Bilirubin 0.8 H (0.0-0.2) mg/dL Indirect Bilirubin 0.7 (0.0-1.2) mg/dL AST 46 H (13-39) Units/L ALT 36 (7-52) Units/L Alkaline Phosphatase 100 (34-104) Units/L Ammonia (16-53) mcmol/L Troponin I 0.08 H* (< 0.04) ng/mL B-Natriuretic Peptide (Less than 100) pg/mL Serum Total Protein 6.6 (6.4-8.9) g/dL Albumin 3.7 (3.5-5.7) g/dL Globulin 2.9 (2.4-3.5) g/dL Albumin/Globulin Ratio 1.3 (1.1-2.2) Lipase 28 (11-82) Units/L 04/16/18 04/16/18 04/16/18 Range/Units 11:16 11:16 11:16 WBC (4.3-11.1) K/mcL RBC (4.19-5.50) M/mcL Hgb (12.9-16.9) g/dL Hct (37.5-50.1) % MCV (83.0-100.0) fL MCH (28.0-33.3) pg MCHC (31.6-35.5) g/dL RDW (11.5-14.5) % Plt Count (140-400) K/mcL MPV (9.4-12.4) fL Immature Gran % (0-4) % Seg Neutrophils % % Lymphocytes % % Monocytes % % Eosinophils % % Basophils % % Neutrophils # (1.6-8.9) K/mcL Lymphocytes # (0.6-4.6) K/mcL Monocytes # (0.0-1.3) K/mcL Eosinophils # (0.0-0.6) K/mcL Basophils # (0.0-0.2) K/mcL PT (9.4-12.1) Seconds INR Sodium (136-145) mEq/L Potassium (3.5-5.1) mEq/L Chloride (98-107) mEq/L Carbon Dioxide (23-29) mEq/L BUN (8-23) mg/dL Creatinine (0.70-1.30) mg/dL Est GFR ( Amer) (> 60) Est GFR (Non-Af Amer) (> 60) BUN/Creatinine Ratio (6-26) Glucose (70-105) mg/dL Calculated Osmolality (280-300) Lactic Acid 2.1 (0.5-2.2) mmol/L Calcium (8.6-10.3) mg/dL Total Bilirubin (0.3-1.0) mg/dL Direct Bilirubin (0.0-0.2) mg/dL Indirect Bilirubin (0.0-1.2) mg/dL AST (13-39) Units/L ALT (7-52) Units/L Alkaline Phosphatase (34-104) Units/L Ammonia 69 H (16-53) mcmol/L Troponin I (< 0.04) ng/mL B-Natriuretic Peptide 1457 H (Less than 100) pg/mL Serum Total Protein (6.4-8.9) g/dL Albumin (3.5-5.7) g/dL Globulin (2.4-3.5) g/dL Albumin/Globulin Ratio (1.1-2.2) Lipase (11-82) Units/L //18 Range/Units 15:32 WBC (4.3-11.1) K/mcL RBC (4.19-5.50) M/mcL Hgb (12.9-16.9) g/dL Hct (37.5-50.1) % MCV (83.0-100.0) fL MCH (28.0-33.3) pg MCHC (31.6-35.5) g/dL RDW (11.5-14.5) % Plt Count (140-400) K/mcL MPV (9.4-12.4) fL Immature Gran % (0-4) % Seg Neutrophils % % Lymphocytes % % Monocytes % % Eosinophils % % Basophils % % Neutrophils # (1.6-8.9) K/mcL Lymphocytes # (0.6-4.6) K/mcL Monocytes # (0.0-1.3) K/mcL Eosinophils # (0.0-0.6) K/mcL Basophils # (0.0-0.2) K/mcL PT (9.4-12.1) Seconds INR Sodium (136-145) mEq/L Potassium (3.5-5.1) mEq/L Chloride (98-107) mEq/L Carbon Dioxide (23-29) mEq/L BUN (8-23) mg/dL Creatinine (0.70-1.30) mg/dL Est GFR ( Amer) (> 60) Est GFR (Non-Af Amer) (> 60) BUN/Creatinine Ratio (6-26) Glucose (70-105) mg/dL Calculated Osmolality (280-300) Lactic Acid 3.3 H (0.5-2.2) mmol/L Calcium (8.6-10.3) mg/dL Total Bilirubin (0.3-1.0) mg/dL Direct Bilirubin (0.0-0.2) mg/dL Indirect Bilirubin (0.0-1.2) mg/dL AST (13-39) Units/L ALT (7-52) Units/L Alkaline Phosphatase (34-104) Units/L Ammonia (16-53) mcmol/L Troponin I (< 0.04) ng/mL B-Natriuretic Peptide (Less than 100) pg/mL Serum Total Protein (6.4-8.9) g/dL Albumin (3.5-5.7) g/dL Globulin (2.4-3.5) g/dL Albumin/Globulin Ratio (1.1-2.2) Lipase (11-82) Units/L - Radiology Data Radiology results reviewed: Yes I reviewed the patient's radiology results. - EKG Data EKG attestation: Yes I reviewed and interpreted this EKG. EKG results narrative: EKG shows possible atrial flutter. Heart rate 98. QRS 98. QTC 477. Patient has no significant ST elevations or depressions. No EKG at this time.
[2018-04-16 11:38] LABS: Basophils % 0.5 %; Eosinophils # 0.1 K/mcL (0.0-0.6); Eosinophils % 0.9 %; Hematocrit 40.6 % (37.5-50.1); Hemoglobin 12.6 g/dL (12.9-16.9); Immature Granulocytes % 0.4 % (0-4); Lymphocytes # 0.9 K/mcL (0.6-4.6); Mean Corpuscular Hemoglobin 30.7 pg (28.0-33.3); Mean Corpuscular Volume 98.8 fL (83.0-100.0); Mean Platelet Volume 10.6 fL (9.4-12.4); Monocytes # 0.8 K/mcL (0.0-1.3); Monocytes % 10.5 %; Neutrophils # 5.9 K/mcL (1.6-8.9); Platelet Count 226 K/mcL (140-400); Red Blood Count 4.11 M/mcL (4.19-5.50); Red Cell Distribution Width 16.6 % (11.5-14.5); Segmented Neutrophils % 75.7 %
[2018-04-16 11:45] LABS: INR 1.5; Prothrombin Time 16.5 Seconds (9.4-12.1)
[2018-04-16 12:03] LABS: Albumin 3.7 g/dL (3.5-5.7); Albumin/Globulin Ratio 1.3 (1.1-2.2); Bilirubin,Direct 0.8 mg/dL (0.0-0.2); Bilirubin,Indirect 0.7 mg/dL (0.0-1.2); Bilirubin,Total 1.5 mg/dL (0.3-1.0); Calcium 9.1 mg/dL (8.6-10.3); Globulin 2.9 g/dL (2.4-3.5); Potassium 5.6 mEq/L (3.5-5.1); Total Protein 6.6 g/dL (6.4-8.9)
[2018-04-16 12:07] LABS: Troponin I 0.08 ng/mL (< 0.04)
[2018-04-16] MEDS ORDERED: 0.9 % Sodium Chloride 250 ML IVC ONE (12:56)
[2018-04-16] MEDS ORDERED: Lactulose Oral Soln 20 GM/30 ML UDC PO ONE (12:56)
[2018-04-16] MEDS ORDERED: Albuterol 2.5 MG/3 ML NEBULIZER IH ONE ×2 (12:56→12:57)
[2018-04-16] MEDS ORDERED: Naloxone 0.4 MG/ML INJ IVP PRN (18:01)
--- NOTE | 2018-04-16 18:27 | Internal Med History&Physical ---
Date of Encounter: 04/17/18 Time of Encounter: 18:24 Internal Medicine - H&P: HPI Chief complaint: Shortness of breath Admitted From: Home Plans for Post Hospital Care: Home History of present illness: 62 year old male patient with a history of cardiomyopathy with EF of 20-25%, coronary artery disease, status post AICD , diabetes, hypertension, COPD and chronic respiratory failure on 2 L nasal cannula, chronic pancreatitis presented to the ER with complaints of shortness of breath.He was just discharged from this facility for management of RANDA on CKD and CHFE He is seen in the ER and at my evaluation, he is fixated on drinking water, and did endorse shortness of breath with minimal exertion, and at rest. He denies chest pain, he denies nausea and vomiting and reports no abdominal pain. He denies diarrhea. Patient also reports " I am having a nervous breakdown" He denies suicidal or homicidal ideation. He was just discharged from this facility 2 days ago, during that stay , he was also managed for hepatic encephalopathy Work up in the ER shows acute on chronic kidney injury, hyperkalemia, pneumonia level slightly elevated, lactic acidosis(initial lactate was normal), lipase is within normal limit. BNP is elevated above baseline at discharge 2 days ago. Troponin elevated at 0.08. Abdomen CAT scan is nonspecific, however, right upper quadrant shows diffuse inflammation suspicious for acute cholecystitis, acute cystitis. He has a moderate right pleural effusion. There is no bowel obstruction. Liver Function tests was normal Past Med Surg Social Fam HX - Past Medical History Medical history: cancer, cardiomyopathy, COPD, coronary artery disease, diabetes , hyperlipidemia, hypertension, myocardial infarction, other Additional medical history: pancreatitis. short-term memory problems Psychiatric history: no psych history - Past Surgical History Surgical History: angioplasty/stent, cataract, herniorrhaphy, other Additional surgical history: x3 stents - Social History Smoking Status: Current every day smoker Smokeless Tobacco Status: No Alcohol use: none Drug use: none - Family History Father Adopted: No Living Status: Hx Family Cardiac Disorders: No Hx Family Respiratory Disorders: Yes Hx Family Cancer: Yes Hx Family GI Disorders: No Hx Family Endocrine Disorder: No Hx Family Neuromuscular Disorders: No Hx Family Neurologic Disorders: No Hx Family HEENT Disorders: No Hx Family Autoimmune Disorders: No Mother Adopted: No Family Member Ethnicity: Non- Living Status: Hx Family Cardiac Disorders: No Hx Family Respiratory Disorders: Yes Hx Family Cancer: Yes Hx Family GI Disorders: No Hx Family Endocrine Disorder: Yes Hx Family Neuromuscular Disorders: No Hx Family Neurologic Disorders: No Hx Family HEENT Disorders: No Hx Family Autoimmune Disorders: No Internal Medicine - H&P: Meds Albuterol Sulfate [Albuterol Inhaler] 2 puff IH Q4HR PRN 05/17/15 [History] Ezetimibe [Zetia] 10 mg PO DAILY 05/17/15 [History] Metformin HCl [Glucophage] 1,000 mg PO BID 05/17/15 [History] Tiotropium [Spiriva] 18 mcg IH DAILY 05/17/15 [History] Clopidogrel [Plavix] 75 mg PO DAILY 10/27/17 [History] Lisinopril [Zestril] 2.5 mg PO DAILY PRN 10/27/17 [History] Metoprolol Succinate [Toprol Xl] 25 mg PO DAILY 10/27/17 [History] Lipase/Protease/Amylase [[place] Dr 12,000 Units Capsule] 1 cap PO BIDWM 11/10/17 [History] Cholestyramine 4 g PO BID 01/24/18 [History] Perphenazine [Trilafon] 8 mg PO HS 01/24/18 [History] Tamsulosin [Flomax] 0.4 mg PO DAILY #30 capsule 02/04/18 [Rx] Bacitracin OINT [Ak-Tracin] 1 appl TP BID 30 Days #1 tube 03/23/18 [Rx] Nystatin Cream [Mycostatin Cream] 1 appl TP BID 30 Days #1 tube 03/23/18 [Rx] Aspirin [Lo-Dose Aspirin EC] 81 mg PO DAILY 04/09/18 [History] Furosemide [Lasix] 40 mg PO BID 04/09/18 [History] Lactulose 20 gm PO BID #60 udc 04/14/18 [Rx] 3 Allergy/AdvReac Type Severity Reaction Status Date / Time loxapine [From Loxitane] Allergy See Verified 04/16/18 10:55 Comments betamethasone AdvReac Hives Verified 04/16/18 10:55 [From Lotrisone] clotrimazole [From Lotrisone] AdvReac Hives Verified 04/16/18 10:55 Sulfa (Sulfonamide AdvReac Hives Verified 04/16/18 10:55 Antibiotics) All Systems PM: A 10-system review of systems was performed and is negative for pertinent findings except as documented above in the HPI. - Constitutional Constitutional: no chills, no fever(s), no night sweats - EENT Eyes: no change in vision, no discharge, no pain, no photophobia Ears: no ear discharge, no ear pain, no tinnitus Nose, mouth and throat: no dysphagia, no nasal discharge, no neck pain, no sore throat - Cardiovascular Cardiovascular ROS IM: as per HPI - Respiratory Respiratory: as per HPI - Gastrointestinal Gastrointestinal: as per HPI - Musculoskeletal Musculoskeletal ROS IM: as per HPI - Integumentary Integumentary IM: as per HPI - Neurological Neurological ROS: as per HPI - Hematologic/Lymphatic Hematologic/Lymphatic: as per HPI - Constitutional Vitals: Temp Pulse Resp BP Pulse Ox 98.6 F 96 24 103/87 99 04/16/18 10:59 04/16/18 17:33 04/16/18 17:33 04/16/18 17:33 04/16/18 17:33 General appearance: Present: disheveled, A&O X 2, mild distress, morbidly obese Exam: see below - Eye Eye exam: Present: PERRL, conjuntiva pink, sclera anicteric - ENT ENT exam: Present: mucous membranes dry - Neck Neck exam general surgery: Present: normal inspection - Respiratory Respiratory exam: Present: decreased breath sounds, rales (few scattered rales at the bases) - Cardiovascular Cardiovascular exam: Present: RRR, +S1, +S2. Absent: diastolic murmur, gallop, rubs, systolic murmur - GI/Abdominal GI/Abdominal exam: Present: normal bowel sounds, soft, no peritoneal signs. Absent: distended, tenderness Additional comments: abdominal wall edema - Extremities Exam Additional comments: bilateral piting pedal edema up to the groin. Excoriation blistering and peeling of both lower extremities surrounding redness and weeping. - Neurological Exam Neurological exam: Present: alert, no focal deficits. Absent: oriented X3, pronater drift, facial droop, speech deficit - Skin Skin exam: Present: dry, excoriation Internal Med - H&P Results - Labs CBC & Chem 7: 04/17/18 05:48 04/17/18 05:48 - Assessment and plan (1) 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 Current Visit: Yes Status: Acute Assessment and plan: Continue lasix, IV 40mg BID MOnitor I/Os Fluid restriciton diet to L daily Daily weight Patient with multiple recurrent admissions for same CXR with stable congestion BNP 1457 ( higher than level at discharged 2 days ago) Continue O2 at home baseline (2) Elevated troponin Current Visit: Yes Status: Acute Assessment and plan: Chronic, likley due to demand ischemia Cycle X2 EKG is paced Continue to monitor No indication to repeat ECHO (3) Hyperkalemia Current Visit: Yes Status: Acute Assessment and plan: Repeat after lasix and albuterol NO indication for calcium, no EKG changes GIve kayexalate (4) Anasarca Current Visit: Yes Status: Chronic Assessment and plan: management as in CHFE (5) Bipolar 1 disorder, manic, mild Current Visit: Yes Status: Chronic Assessment and plan: continue home meds (6) DVT prophylaxis Current Visit: Yes Status: Acute Assessment and plan: SQ heparin (7) Elevated lactic acid level Current Visit: Yes Status: Acute Assessment and plan: Initial lactate on admissin 2.1 Now 3.3 Difficulty clearance due to liver disease Rpt with a.m labs (8) Ischemic cardiomyopathy Current Visit: Yes Status: Chronic Assessment and plan: as in CHF (9) CAD (coronary artery disease) Current Visit: Yes Status: Chronic Assessment and plan: Known CAD s/p PCI [facility] 03/2017. STRESS TEST 01/25/18: Perfusion defect in the inferolateral wall representing prior infarct. Medium sized, moderate- severe intensity partially fixed defect in the mid-distal anterior wall, apex, and apical inferior wall with some areas worsening with stress, Findings likely represent [place]-infarct ischemia. Continue home meds Qualifiers: Coronary Disease-Associated Artery/Lesion type: [place] artery [place] vs. transplanted heart: [place] heart Associated angina: without angina Qualified Code(s): I25.10 - Atherosclerotic heart disease of [place] coronary artery without angina pectoris (10) COPD without exacerbation Current Visit: Yes Status: Chronic Assessment and plan: duonebs prn, continue home MDIs No indication for steroids or antibiotics (11) Diabetes Current Visit: Yes Status: Chronic Assessment and plan: SSI, ADA diet FS ACHS Monitor FS Qualifiers: Diabetes mellitus type: type 2 Diabetes mellitus long term care social worker insulin use: without group home use Diabetes mellitus complication status: with other specified complication Qualified Code(s): E11.69 - Type 2 diabetes mellitus with other specified complication (12) HTN (hypertension) Current Visit: Yes Status: Chronic Assessment and plan: continue home meds Qualifiers: Hypertension type: essential hypertension Qualified Code(s): I10 - Essential (primary) hypertension (13) Obesity Current Visit: Yes Status: Chronic Assessment and plan: lifestyle modification Qualifiers: Obesity type: due to excess calories Obesity classification: adult class 3 (BMI >= 40) Serious obesity comorbidity presence: without serious comorbidity Body mass index: BMI 40.0-44.9 Qualified Code(s): E66.01 - Morbid (severe) obesity due to excess calories; Z68.41 - Body mass index (BMI) 40.0-44.9, adult (14) Obstructive sleep apnea Current Visit: Yes Status: Chronic Assessment and plan: CPAP at bedtime (15) Acute on chronic renal failure Current Visit: Yes Status: Acute Assessment and plan: likely cardio-renal vs hepatorenal Ammonia level acceptable, continue home dose of lactulose GIve albumin with trial of lasix Send uric acid Continue to monitor Strict I and Os Avoid nephrotoxins Qualifiers: Acute renal failure type: unspecified Chronic kidney disease stage: stage 3 (moderate) Qualified Code(s): N17.9 - Acute kidney failure, unspecified; N18.3 - Chronic kidney disease, stage 3 (moderate) (16) Cellulitis Current Visit: Yes Status: Acute Assessment and plan: start doxycycline 100mg BID IV q12h Patient with multiple excoriations on the LE in the setting of fluid overload and anasarca, as well as chronic venous congestion Continue lasix Consult wound care Qualifiers: Site of cellulitis: extremity Site of cellulitis of extremity: lower extremity Laterality: unspecified laterality Qualified Code(s): L03.119 - Cellulitis of unspecified part of limb - Time Spent With Patient Total time spent is greater than 50% in coordination of care (as documented) at patient's floor/unit and/or counseling patient:
[2018-04-16] MEDS ORDERED: Dextrose Gel 15 GM/37.5 ML TUBE PO PRN ×2 (18:38)
[2018-04-16] MEDS ORDERED: *HR* Dextrose 50 % in Water (Syg) 50 ML SYRINGE IVP PRN (18:38)
[2018-04-16] MEDS ORDERED: D5% in Water 1,000 ML IVC PRN (18:38)
[2018-04-16] MEDS: Albumin 25% 25gram/100mL 25 GM/100 ML IV.SOLN IVPB SCH (23:05)
[2018-04-16] MEDS: Perphenazine 8 MG TABLET PO SCH (23:23)
[2018-04-16] MEDS: Insulin DETEMIR 100 UNIT/ML X5UNITS SQ SCH (23:23)
[2018-04-16] MEDS: Lactulose Oral Soln 20 GM/30 ML UDC PO SCH (23:23)
[2018-04-16] MEDS: *HR* Heparin 5,000 UNIT/ML VIAL SQ SCH (23:24)
[2018-04-16] MEDS: Nystatin Cream 15 GM TUBE TP SCH (23:24)
[2018-04-16] MEDS: Insulin LISPRO 300 UNITS/3 ML VIAL SQ SCH (23:26)
[2018-04-17] MEDS: Cholestyramine 4 GM POWD.PACK PO SCH ×3 (02:49→20:34)
[2018-04-17] MEDS: Furosemide 40 MG/4 ML VIAL IVP SCH ×3 (02:50→16:51)
[2018-04-17] MEDS ORDERED: *HR* Promethazine 25 MG/ML VIAL IVP PRN (03:01)
[2018-04-17 06:13] LABS: Basophils % 0.4 %; Eosinophils # 0.1 K/mcL (0.0-0.6); Eosinophils % 1.6 %; Hematocrit 40.4 % (37.5-50.1); Hemoglobin 12.5 g/dL (12.9-16.9); Immature Granulocytes % 0.4 % (0-4); Lymphocytes # 1.1 K/mcL (0.6-4.6); Lymphocytes % 13.5 %; Mean Corpuscular HGB Conc 30.9 g/dL (31.6-35.5); Mean Corpuscular Hemoglobin 30.6 pg (28.0-33.3); Mean Corpuscular Volume 98.8 fL (83.0-100.0); Mean Platelet Volume 10.7 fL (9.4-12.4); Monocytes # 1.1 K/mcL (0.0-1.3); Platelet Count 209 K/mcL (140-400); Red Blood Count 4.09 M/mcL (4.19-5.50); Red Cell Distribution Width 16.9 % (11.5-14.5); Segmented Neutrophils % 71.1 %
[2018-04-17 06:31] LABS: Calcium 9.3 mg/dL (8.6-10.3); Potassium 5.1 mEq/L (3.5-5.1)
[2018-04-17] MEDS ORDERED: Tiotropium 18 MCG inhalation IH SCH (09:00)
[2018-04-17] MEDS ORDERED: (Ezetimibe [Zetia] 10 MG) PO SCH (09:00)
[2018-04-17] MEDS: Metoprolol XL (24 HR) Succ 25 MG TAB.ER.24H PO SCH (09:29)
[2018-04-17] MEDS: Aspirin Enteric Coated 81 MG Tablet PO SCH (09:29)
[2018-04-17] MEDS: *HR* Heparin 5,000 UNIT/ML VIAL SQ SCH ×2 (09:30→16:51)
[2018-04-17] MEDS: Lactulose Oral Soln 20 GM/30 ML UDC PO SCH ×2 (09:30→20:33)
[2018-04-17] MEDS: Albumin 25% 25gram/100mL 25 GM/100 ML IV.SOLN IVPB SCH ×2 (09:30→16:50)
--- NOTE | 2018-04-17 09:37 | Internal Med Progress Note ---
Hospitalist Progress Note - Encounter Date of Encounter: 04/17/18 Time of Encounter: 09:36 - Subjective Interval History: Patient with CHFrEF, CAD, DM, Chronic venous stasis changes, CKD, Liver cirrhosis who was admitted 04/16 for [facility], RANDA on CKD, Elevated troponin He also likely cellulitis from his LE He was given albumin and lasix, Renal function slowly improving Patient has very poor insight He is seen and examined at the bedside , he denies new complains He is on a fluid restriction diet and is frustrated about not drinking as much as he would want to His is at the bedside, educated about diagnoses - Exam Vitals: Temp Pulse Resp BP Pulse Ox 97 F L 105 16 102/68 92 04/17/18 07:49 04/17/18 07:49 04/17/18 07:50 04/17/18 07:49 04/17/18 07:50 Exam: Gen: VSS, Sitting up in bed, morbidly obese, in no form of distress HEENT: Moist oral mucosa, no cyanosis Neuro: AAOX3, no facial droop, speech WNL, moves all extremities spontaneously Chest: CTAB, no added sounds Heart: S1, S2 only, no m/g/r Abdomen: Soft, not tender Extremities: In wound dressing, dirty, weeping excoriating lesions, surrounding redness and tenderness, no induration or abscess collection noted - Assessment and Plan (1) 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 Current Visit: Yes Status: Acute Assessment and Plan: Continue lasix, IV 40mg BID Monitor I/Os Fluid restriciton diet to 1L daily Daily weight checks Patient with multiple recurrent admissions for same CXR with stable congestion BNP 1457 ( higher than level at discharged 2 days ago) Continue other home meds Continue O2 at home baseline (2) Elevated troponin Current Visit: Yes Status: Acute Assessment and Plan: Chronic, likely due to demand ischemia in the setting of acute on chronic kidney failure 0.07- EKG is paced Continue to monitor No indication to repeat ECHO (3) Hyperkalemia Current Visit: Yes Status: Acute Assessment and Plan: Improving K 5.6 on admission, 5.1 this a.m Give Kayexalate 30mg once po Continue to monitor Chem Keep on tele (4) Anasarca Current Visit: Yes Status: Chronic Assessment and Plan: management as in [facility] (5) Bipolar 1 disorder, manic, mild Current Visit: Yes Status: Chronic Assessment and Plan: continue home meds (6) DVT prophylaxis Current Visit: Yes Status: Acute Assessment and Plan: SQ heparin (7) Elevated lactic acid level Current Visit: Yes Status: Acute Assessment and Plan: Initial lactate on admissin 2.1, increased to 3.3 This a.m 2.1 Difficulty clearance due to liver disease Continue to monitor (8) Ischemic cardiomyopathy Current Visit: Yes Status: Chronic Assessment and Plan: as in CHF (9) CAD (coronary artery disease) Current Visit: Yes Status: Chronic Assessment and Plan: Known CAD s/p PCI [facility] 03/2017. STRESS TEST 01/25/18: Perfusion defect in the inferolateral wall representing prior infarct. Medium sized, moderate- severe intensity partially fixed defect in the mid-distal anterior wall, apex, and apical inferior wall with some areas worsening with stress, Findings likely represent [place]-infarct ischemia. Continue home meds (10) COPD without exacerbation Current Visit: Yes Status: Chronic Assessment and Plan: duonebs prn, continue home MDIs No indication for steroids or antibiotics (11) Diabetes Current Visit: Yes Status: Chronic Assessment and Plan: SSI, ADA diet FS ACHS Monitor FS (12) HTN (hypertension) Current Visit: Yes Status: Chronic Assessment and Plan: continue home meds (13) Obesity Current Visit: Yes Status: Chronic Assessment and Plan: lifestyle modification (14) Obstructive sleep apnea Current Visit: Yes Status: Chronic Assessment and Plan: CPAP at bedtime (15) Acute on chronic renal failure Current Visit: Yes Status: Acute Assessment and Plan: likely cardio-renal vs hepatorenal Ammonia level acceptable, continue home dose of lactulose Uric acid this a.m 9.4 Renal function improving with albumin and lasix Continue same Strict I and Os Avoid nephrotoxins (16) Cellulitis Current Visit: Yes Status: Acute Assessment and Plan: Continue doxycycline 100mg BID IV q12h Patient with multiple excoriations on the LE in the setting of fluid overload and anasarca, as well as chronic venous congestion Continue lasix Consult wound care (17) Cholecystitis Current Visit: Yes Status: Suspected Assessment and Plan: Per CT scan, asymptomatic Gall bladder USS is pending LFTs at baseline - Time Spent with Patient Total time spent is greater than 50% in coordination of care (as documented) at patient's floor/unit and/or counseling patient: Plan of Care Discussed with: patient Internal Medicine: Result - Labs CBC & Chem 7: 04/17/18 05:48 04/17/18 05:48 Labs: Short CBC 04/17/18 Range/Units 05:48 WBC 8.4 (4.3-11.1) K/mcL Hgb 12.5 L (12.9-16.9) g/dL Hct 40.4 (37.5-50.1) % Plt Count 209 (140-400) K/mcL Neutrophils # 6.0 (1.6-8.9) K/mcL BMP 04/17/18 05:48 Sodium 135 L Potassium 5.1 Chloride 96 L Carbon Dioxide 34 H BUN 70 H Creatinine 1.56 H Glucose 148 H Calcium 9.3 Cardiac Enzymes 04/16/18 Range/Units 18:50 Troponin I 0.07 H* (< 0.04) ng/mL - ABG Interpretation ABG results: PT/INR, D-dimer PT 16.5 Seconds (9.4-12.1) H 04/16/18 11:16 Consult Discharge Plan - Plan Referrals: [facility],Zackary Barth MD [Primary Care Provider] - (9) CAD (coronary artery disease) Qualifiers: Coronary Disease-Associated Artery/Lesion type: [place] artery [place] vs. transplanted heart: [place] heart Associated angina: without angina Qualified Code(s): I25.10 - Atherosclerotic heart disease of [place] coronary artery without angina pectoris (11) Diabetes Qualifiers: Diabetes mellitus type: type 2 Diabetes mellitus buttermaker helper insulin use: without nursing home use Diabetes mellitus complication status: with other specified complication Qualified Code(s): E11.69 - Type 2 diabetes mellitus with other specified complication (12) HTN (hypertension) Qualifiers: Hypertension type: essential hypertension Qualified Code(s): I10 - Essential (primary) hypertension (13) Obesity Qualifiers: Obesity type: due to excess calories Obesity classification: adult class 3 ( BMI >= 40) Serious obesity comorbidity presence: without serious comorbidity Body mass index: BMI 40.0-44.9 Qualified Code(s): E66.01 - Morbid (severe) obesity due to excess calories; Z68.41 - Body mass index (BMI) 40.0-44.9, adult (15) Acute on chronic renal failure Qualifiers: Acute renal failure type: unspecified Chronic kidney disease stage: stage 3 ( moderate) Qualified Code(s): N17.9 - Acute kidney failure, unspecified; N18.3 - Chronic kidney disease, stage 3 (moderate) (16) Cellulitis Qualifiers: Site of cellulitis: extremity Site of cellulitis of extremity: lower extremity Laterality: unspecified laterality Qualified Code(s): L03.119 - Cellulitis of unspecified part of limb
[2018-04-17] MEDS: Insulin LISPRO 300 UNITS/3 ML VIAL SQ SCH ×4 (10:15→20:34)
[2018-04-17 11:20] LABS: Troponin I 0.08 ng/mL (< 0.04)
[2018-04-17] MEDS: Nystatin Cream 15 GM TUBE TP SCH ×2 (17:01→21:01)
[2018-04-17] MEDS: Doxycycline 100 MG in 0.9 % Sodium Chloride Mini Bag 100 ML IVPB SCH (18:42)
[2018-04-17] MEDS: Perphenazine 8 MG TABLET PO SCH (20:33)
[2018-04-17] MEDS: Insulin DETEMIR 100 UNIT/ML X5UNITS SQ SCH (20:42)
[2018-04-18] MEDS: *HR* Heparin 5,000 UNIT/ML VIAL SQ SCH ×3 (00:32→17:06)
[2018-04-18 04:50] LABS: Bilirubin,Urine Negative (Negative); Blood,Urine Negative (Negative); Clarity,Urine Clear (Clear); Color,Urine Yellow (Yellow); Glucose,Urine (UA) Normal (Normal); Ketones,Urine Negative (Negative); Leukocyte Esterase,Urine Negative (Negative); Nitrite,Urine Negative (Negative); Protein,Urine Negative (Neg-Trace); Specific Gravity,Urine 1.013 (1.010-1.025); Urobilinogen,Urine Normal (Normal)
[2018-04-18] MEDS: Doxycycline 100 MG in 0.9 % Sodium Chloride Mini Bag 100 ML IVPB SCH ×2 (06:39→18:10)
[2018-04-18] MEDS: Tiotropium 18 MCG inhalation IH SCH (08:01)
[2018-04-18 09:03] LABS: Basophils % 0.3 %; Eosinophils # 0.1 K/mcL (0.0-0.6); Eosinophils % 1.9 %; Hematocrit 38.8 % (37.5-50.1); Hemoglobin 11.7 g/dL (12.9-16.9); Immature Granulocytes % 0.3 % (0-4); Lymphocytes # 0.9 K/mcL (0.6-4.6); Lymphocytes % 13.6 %; Mean Corpuscular HGB Conc 30.2 g/dL (31.6-35.5); Mean Corpuscular Hemoglobin 30.5 pg (28.0-33.3); Mean Platelet Volume 10.7 fL (9.4-12.4); Monocytes # 0.9 K/mcL (0.0-1.3); Monocytes % 13.6 %; Neutrophils # 4.8 K/mcL (1.6-8.9); Platelet Count 177 K/mcL (140-400); Red Blood Count 3.84 M/mcL (4.19-5.50); Red Cell Distribution Width 17.1 % (11.5-14.5); Segmented Neutrophils % 70.3 %
[2018-04-18] MEDS: Insulin LISPRO 300 UNITS/3 ML VIAL SQ SCH ×4 (09:10→21:09)
[2018-04-18 09:21] LABS: BUN/Creatinine Ratio 45 (6-26); Blood Urea Nitrogen 61 mg/dL (8-23); Carbon Dioxide 33 mEq/L (23-29); Chloride 98 mEq/L (98-107); Glucose 115 mg/dL (70-105); Osmolality,Calculated 302 (280-300); Potassium 4.2 mEq/L (3.5-5.1); Sodium 137 mEq/L (136-145); eGFR For Non-African Americans 53 (> 60)
[2018-04-18] MEDS: Metoprolol XL (24 HR) Succ 25 MG TAB.ER.24H PO SCH (09:26)
[2018-04-18] MEDS: Lactulose Oral Soln 20 GM/30 ML UDC PO SCH ×2 (09:26→21:12)
[2018-04-18] MEDS: Aspirin Enteric Coated 81 MG Tablet PO SCH (09:27)
[2018-04-18] MEDS: Furosemide 40 MG/4 ML VIAL IVP SCH ×2 (09:27→18:11)
[2018-04-18] MEDS: Cholestyramine 4 GM POWD.PACK PO SCH ×2 (09:28→21:12)
[2018-04-18] MEDS: Nystatin Cream 15 GM TUBE TP SCH ×2 (09:37→21:22)
--- NOTE | 2018-04-18 10:24 | Internal Med Progress Note ---
Hospitalist Progress Note - Encounter Date of Encounter: 04/18/18 Time of Encounter: 10:24 - Subjective Interval History: Patient with CHFrEF, CAD, DM, Chronic venous stasis changes, CKD, Liver cirrhosis who was admitted 04/16 for [facility], RANDA on CKD, Elevated troponin He also likely cellulitis from his LE He was given albumin and lasix, Renal function slowly improving He is sitting up in chair out of bed this morning on evaluation, insulin complaint is wishing that the quadrant more water. He is awaiting gallbladder ultrasound for incidental finding on CAT scan. Output difficult to document this patient continued to refuse to use a urinal, some weight loss is documented - Exam Vitals: Temp Pulse Resp BP Pulse Ox 97.6 F 94 18 108/70 99 04/17/18 19:36 04/18/18 07:02 04/18/18 08:01 04/18/18 07:02 04/18/18 08:01 Exam: Gen: VSS, Sitting up in bed, morbidly obese, in no form of distress HEENT: Moist oral mucosa, no cyanosis Neuro: AAOX3, no facial droop, speech WNL, moves all extremities spontaneously Chest: CTAB, no added sounds Heart: S1, S2 only, no m/g/r Abdomen: Soft, not tender Extremities: In wound dressing, dirty, weeping excoriating lesions, surrounding redness and tenderness, no induration or abscess collection noted - Assessment and Plan (1) 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 Current Visit: Yes Status: Acute Assessment and Plan: Continue lasix, IV 40mg BID Monitor I/Os Fluid restriction diet to 1L daily Daily weight checks, some weight loss documented Patient with multiple recurrent admissions for same CXR with stable congestion BNP 1457 ( higher than level at discharged 2 days ago) Continue other home meds Continue O2 at home baseline (2) Elevated troponin Current Visit: Yes Status: Acute Assessment and Plan: Chronic, likely due to demand ischemia in the setting of acute on chronic kidney failure 0.07-0.08 EKG is paced Continue to monitor No indication to repeat ECHO (3) Hyperkalemia Current Visit: Yes Status: Resolved Assessment and Plan: Resolved K 5.6 -5.1-4.2 Continue to monitor Chem Continue tele (4) Anasarca Current Visit: Yes Status: Chronic Assessment and Plan: management as in [facility] (5) Bipolar 1 disorder, manic, mild Current Visit: Yes Status: Chronic Assessment and Plan: continue home meds (6) DVT prophylaxis Current Visit: Yes Status: Acute Assessment and Plan: SQ heparin (7) Elevated lactic acid level Current Visit: Yes Status: Resolved Assessment and Plan: Resolved Initial lactate on admission 2.1, increased to 3.3 Difficulty clearance due to liver disease Continue to monitor (8) Ischemic cardiomyopathy Current Visit: Yes Status: Chronic Assessment and Plan: as in CHF (9) CAD (coronary artery disease) Current Visit: Yes Status: Chronic Assessment and Plan: Known CAD s/p PCI [facility] 03/2017. Stress test 01/25/18: Perfusion defect in the inferolateral wall representing prior infarct. Medium sized, moderate- severe intensity partially fixed defect in the mid-distal anterior wall, apex, and apical inferior wall with some areas worsening with stress, Findings likely represent [place]-infarct ischemia. Continue home meds (10) COPD without exacerbation Current Visit: Yes Status: Chronic Assessment and Plan: duonebs prn, continue home MDIs No indication for steroids or antibiotics (11) Diabetes Current Visit: Yes Status: Chronic Assessment and Plan: SSI, ADA diet FS ACHS Monitor FS (12) HTN (hypertension) Current Visit: Yes Status: Chronic Assessment and Plan: continue home meds (13) Obesity Current Visit: Yes Status: Chronic Assessment and Plan: lifestyle modification (14) Obstructive sleep apnea Current Visit: Yes Status: Chronic Assessment and Plan: CPAP at bedtime (15) Acute on chronic renal failure Current Visit: Yes Status: Acute Assessment and Plan: likely cardio-renal vs hepatorenal Ammonia level acceptable, continue home dose of lactulose Uric acid 9.4 Renal function improving with albumin and lasix Continue same Strict I and Os Avoid nephrotoxins (16) Cellulitis Current Visit: Yes Status: Acute Assessment and Plan: Continue doxycycline 100mg BID IV [id number] Patient with multiple excoriations on the LE in the setting of fluid overload and anasarca, as well as chronic venous congestion Continue lasix Consult wound care, eval pending (17) Cholecystitis Current Visit: Yes Status: Suspected Assessment and Plan: Per CT scan, asymptomatic Gall bladder USS is pending LFTs at baseline - Time Spent with Patient Total time spent is greater than 50% in coordination of care (as documented) at patient's floor/unit and/or counseling patient: Plan of Care Discussed with: patient Internal Medicine: Result - Labs CBC & Chem 7: 04/18/18 08:03 04/18/18 08:03 Labs: Short CBC 04/18/18 Range/Units 08:03 WBC 6.8 (4.3-11.1) K/mcL Hgb 11.7 L (12.9-16.9) g/dL Hct 38.8 (37.5-50.1) % Plt Count 177 (140-400) K/mcL Neutrophils # 4.8 (1.6-8.9) K/mcL BMP 04/17/18 04/18/18 05:48 08:03 Sodium 135 L 137 Potassium 5.1 4.2 Chloride 96 L 98 Carbon Dioxide 34 H 33 H BUN 70 H 61 H Creatinine 1.56 H 1.35 H Glucose 148 H 115 H Calcium 9.3 9.0 Cardiac Enzymes 04/17/18 Range/Units 05:48 Troponin I 0.08 H* (< 0.04) ng/mL Urine 04/18/18 Range/Units 04:28 Urine Color Yellow (Yellow) Urine Clarity Clear (Clear) Urine pH 6.0 (5.0-8.0) pH Units Ur Specific [place] 1.013 (1.010-1.025) Urine Protein Negative (Neg-Trace) mg/dL Urine Glucose (UA) Normal (Normal) mg/dL - ABG Interpretation ABG results: PT/INR, D-dimer PT 16.5 Seconds (9.4-12.1) H 04/16/18 11:16 Consult Discharge Plan - Plan Referrals: [facility],Zackary Barth MD [Primary Care Provider] - (9) CAD (coronary artery disease) Qualifiers: Coronary Disease-Associated Artery/Lesion type: [place] artery [place] vs. transplanted heart: [place] heart Associated angina: without angina Qualified Code(s): I25.10 - Atherosclerotic heart disease of [place] coronary artery without angina pectoris (11) Diabetes Qualifiers: Diabetes mellitus type: type 2 Diabetes mellitus group home insulin use: without group home use Diabetes mellitus complication status: with other specified complication Qualified Code(s): E11.69 - Type 2 diabetes mellitus with other specified complication (12) HTN (hypertension) Qualifiers: Hypertension type: essential hypertension Qualified Code(s): I10 - Essential (primary) hypertension (13) Obesity Qualifiers: Obesity type: due to excess calories Obesity classification: adult class 3 ( BMI >= 40) Serious obesity comorbidity presence: without serious comorbidity Body mass index: BMI 40.0-44.9 Qualified Code(s): E66.01 - Morbid (severe) obesity due to excess calories; Z68.41 - Body mass index (BMI) 40.0-44.9, adult (15) Acute on chronic renal failure Qualifiers: Acute renal failure type: unspecified Chronic kidney disease stage: stage 3 ( moderate) Qualified Code(s): N17.9 - Acute kidney failure, unspecified; N18.3 - Chronic kidney disease, stage 3 (moderate) (16) Cellulitis Qualifiers: Site of cellulitis: extremity Site of cellulitis of extremity: lower extremity Laterality: unspecified laterality Qualified Code(s): L03.119 - Cellulitis of unspecified part of limb
--- NOTE | 2018-04-18 17:39 | Electrocardiograph Report ---
[place] [id number] Test Date: 2018-04-16 Pat Name: Deuce Emmanuel Department: [id number] Room: 2A23 Gender: M Secondary Connector Armature: : 1955 Requested By: [id number] Order Number: [id number] Reading MD: Liv Engle Measurements Intervals [place] Rate: 98 P: ND: QRS: -69 QRSD: 98 T: 53 QT: 362 QTc: 477 Interpretive Statements Atrial flutter Left anterior fascicular block Low voltage Electronically Signed On 04-18-2018 17:37:11 EDT by Liv Engle
[2018-04-18] MEDS: Insulin DETEMIR 100 UNIT/ML X5UNITS SQ SCH (21:13)
[2018-04-18] MEDS: Perphenazine 8 MG TABLET PO SCH (21:13)
[2018-04-19] MEDS: *HR* Heparin 5,000 UNIT/ML VIAL SQ SCH ×4 (00:33→23:59)
[2018-04-19] MEDS ORDERED: *HR* OxyCODONE Immed Rel 5 MG TABLET PO PRN (05:59)
[2018-04-19 06:18] LABS: Basophils % 0.4 %; Eosinophils # 0.2 K/mcL (0.0-0.6); Eosinophils % 2.7 %; Hematocrit 37.6 % (37.5-50.1); Hemoglobin 11.4 g/dL (12.9-16.9); Immature Granulocytes % 0.4 % (0-4); Lymphocytes # 0.8 K/mcL (0.6-4.6); Mean Corpuscular HGB Conc 30.3 g/dL (31.6-35.5); Mean Corpuscular Hemoglobin 30.7 pg (28.0-33.3); Mean Corpuscular Volume 101.3 fL (83.0-100.0); Mean Platelet Volume 10.7 fL (9.4-12.4); Monocytes % 13.1 %; Neutrophils # 5.6 K/mcL (1.6-8.9); Platelet Count 169 K/mcL (140-400); Red Blood Count 3.71 M/mcL (4.19-5.50); Red Cell Distribution Width 16.9 % (11.5-14.5); Segmented Neutrophils % 72.4 %
[2018-04-19 06:41] LABS: BUN/Creatinine Ratio 44 (6-26); Blood Urea Nitrogen 53 mg/dL (8-23); Carbon Dioxide 33 mEq/L (23-29); Chloride 99 mEq/L (98-107); Glucose 163 mg/dL (70-105); Osmolality,Calculated 304 (280-300); Potassium 4.4 mEq/L (3.5-5.1); Sodium 138 mEq/L (136-145); eGFR For Non-African Americans > 60 (> 60)
[2018-04-19] MEDS: Insulin LISPRO 300 UNITS/3 ML VIAL SQ SCH ×4 (08:09→20:12)
[2018-04-19] MEDS: Cholestyramine 4 GM POWD.PACK PO SCH ×3 (09:02→17:08)
[2018-04-19] MEDS: Lactulose Oral Soln 20 GM/30 ML UDC PO SCH ×2 (09:05→20:04)
[2018-04-19] MEDS: Doxycycline 100 MG CAPSULE PO SCH ×2 (09:06→20:04)
[2018-04-19] MEDS: Aspirin Enteric Coated 81 MG Tablet PO SCH (09:06)
[2018-04-19] MEDS: Metoprolol XL (24 HR) Succ 25 MG TAB.ER.24H PO SCH (09:06)
[2018-04-19] MEDS: Furosemide 40 MG/4 ML VIAL IVP SCH ×2 (09:06→16:58)
[2018-04-19] MEDS: Nystatin Cream 15 GM TUBE TP SCH ×2 (09:06→20:12)
[2018-04-19] MEDS: Tiotropium 18 MCG inhalation IH SCH (10:11)
--- NOTE | 2018-04-19 18:47 | Internal Med Progress Note ---
Hospitalist Progress Note - Encounter Date of Encounter: 04/19/18 Time of Encounter: 11:00 - Subjective Interval History: Patient with history of cardiomyopathy with LVEF of 20-25%, coronary arterial disease and AICD placement presents with shortness of breath secondary to acute on chronic systolic heart failure. Patient and family was educated again about sodium and fluid restriction. Continuing IV diuresis - Exam Vitals: Temp Pulse Resp BP Pulse Ox 97.4 F L 80 18 112/70 98 04/19/18 17:10 04/19/18 17:10 04/19/18 17:10 04/19/18 17:10 04/19/18 17:10 Exam: Gen.: Nonacute distress, alert and oriented 3 ENT: Mucosal membranes moist Respiratory: Lungs are clear to auscultation bilaterally without any wheezing rhonchi or rales Cardiovascular: Normal S1 and S2 regular rate rhythm no murmurs rubs or gallops Abdomen: Soft, nontender and nondistended with positive bowel sounds Extremities: No lower extremity edema Skin: Normal color - Assessment and Plan (1) 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 Current Visit: Yes Status: Acute Assessment and Plan: Continue lasix, IV 40mg BID Monitor I/Os Fluid restriction diet to 1L daily Daily weight checks, some weight loss documented Patient with multiple recurrent admissions for same CXR with stable congestion BNP 1457 (2) COPD without exacerbation Current Visit: Yes Status: Chronic Assessment and Plan: duonebs prn, continue home MDIs No indication for steroids or antibiotics (3) Elevated troponin Current Visit: Yes Status: Acute Assessment and Plan: Chronic, likely due to demand ischemia in the setting of acute on chronic kidney failure 0.07-0.08 EKG is paced Continue to monitor No indication to repeat ECHO (4) Ischemic cardiomyopathy Current Visit: Yes Status: Chronic Assessment and Plan: Continue home medications and IV diuresis as above (5) HTN (hypertension) Current Visit: Yes Status: Chronic Assessment and Plan: continue home meds (6) Diabetes Current Visit: Yes Status: Chronic Assessment and Plan: SSI, ADA diet (7) Anasarca Current Visit: Yes Status: Chronic Assessment and Plan: management as in [facility] (8) Cellulitis Current Visit: Yes Status: Acute Assessment and Plan: Continue doxycycline 100mg BID IV [id number] 3 Patient with multiple excoriations on the LE in the setting of fluid overload and anasarca, as well as chronic venous congestion Continue lasix Consult wound care, eval pending (9) Acute on chronic renal failure Current Visit: Yes Status: Acute Assessment and Plan: Resolved; continue to monitor (10) Obstructive sleep apnea Current Visit: Yes Status: Chronic Assessment and Plan: CPAP at bedtime (11) Bipolar 1 disorder, manic, mild Current Visit: Yes Status: Chronic Assessment and Plan: continue home meds (12) Obesity Current Visit: Yes Status: Chronic Assessment and Plan: lifestyle modification (13) DVT prophylaxis Current Visit: Yes Status: Acute Assessment and Plan: SQ heparin - Time Spent with Patient Total time spent is greater than 50% in coordination of care (as documented) at patient's floor/unit and/or counseling patient: Internal Medicine: Result - Labs CBC & Chem 7: 04/19/18 06:08 04/19/18 06:08 Labs: Short CBC 04/19/18 Range/Units 06:08 WBC 7.7 (4.3-11.1) K/mcL Hgb 11.4 L (12.9-16.9) g/dL Hct 37.6 (37.5-50.1) % Plt Count 169 (140-400) K/mcL Neutrophils # 5.6 (1.6-8.9) K/mcL BMP 04/19/18 06:08 Sodium 138 Potassium 4.4 Chloride 99 Carbon Dioxide 33 H BUN 53 H Creatinine 1.20 Glucose 163 H Calcium 9.0 - ABG Interpretation ABG results: PT/INR, D-dimer PT 16.5 Seconds (9.4-12.1) H 04/16/18 11:16 - Impressions Impressions Gallbladder Ultrasound 04/18/18 17:30 IMPRESSION: There is nonspecific gallbladder wall thickening. Given the presence of ascites, this may be secondary to systemic congestive heart failure or third-spacing. Nonetheless, it does raise the possibility of acalculous cholecystitis. D/ / Jamel Green MD / Jamel Green MD Interpreting Provider: Jamel Green MD Consult Discharge Plan - Plan Referrals: [facility] [place] [facility] [place]ary F, MD [Primary Care Provider] - (5) HTN (hypertension) Qualifiers: Hypertension type: essential hypertension Qualified Code(s): I10 - Essential (primary) hypertension (6) Diabetes Qualifiers: Diabetes mellitus type: type 2 Diabetes mellitus long winder tender insulin use: without skilled nursing use Diabetes mellitus complication status: with other specified complication Qualified Code(s): E11.69 - Type 2 diabetes mellitus with other specified complication (8) Cellulitis Qualifiers: Site of cellulitis: extremity Site of cellulitis of extremity: lower extremity Laterality: unspecified laterality Qualified Code(s): L03.119 - Cellulitis of unspecified part of limb (9) Acute on chronic renal failure Qualifiers: Acute renal failure type: unspecified Chronic kidney disease stage: stage 3 ( moderate) Qualified Code(s): N17.9 - Acute kidney failure, unspecified; N18.3 - Chronic kidney disease, stage 3 (moderate) (12) Obesity Qualifiers: Obesity type: due to excess calories Obesity classification: adult class 3 ( BMI >= 40) Serious obesity comorbidity presence: without serious comorbidity Body mass index: BMI 40.0-44.9 Qualified Code(s): E66.01 - Morbid (severe) obesity due to excess calories; Z68.41 - Body mass index (BMI) 40.0-44.9, adult
[2018-04-19] MEDS: Perphenazine 8 MG TABLET PO SCH (20:04)
[2018-04-19] MEDS: Insulin DETEMIR 100 UNIT/ML X5UNITS SQ SCH (20:11)
[2018-04-20] MEDS: Insulin LISPRO 300 UNITS/3 ML VIAL SQ SCH ×3 (07:58→17:54)
[2018-04-20 10:39] LABS: Basophils % 0.3 %; Eosinophils # 0.2 K/mcL (0.0-0.6); Eosinophils % 2.9 %; Hematocrit 37.4 % (37.5-50.1); Hemoglobin 10.9 g/dL (12.9-16.9); Immature Granulocytes % 0.3 % (0-4); Lymphocytes # 0.8 K/mcL (0.6-4.6); Mean Corpuscular HGB Conc 29.1 g/dL (31.6-35.5); Mean Corpuscular Hemoglobin 29.8 pg (28.0-33.3); Mean Corpuscular Volume 102.2 fL (83.0-100.0); Mean Platelet Volume 10.5 fL (9.4-12.4); Monocytes # 0.8 K/mcL (0.0-1.3); Monocytes % 12.2 %; Neutrophils # 4.4 K/mcL (1.6-8.9); Platelet Count 160 K/mcL (140-400); Red Blood Count 3.66 M/mcL (4.19-5.50); Red Cell Distribution Width 17.2 % (11.5-14.5); Segmented Neutrophils % 71.3 %
[2018-04-20] MEDS: Tiotropium 18 MCG inhalation IH SCH (11:14)
[2018-04-20 11:32] LABS: BUN/Creatinine Ratio 39 (6-26); Blood Urea Nitrogen 53 mg/dL (8-23); Carbon Dioxide 33 mEq/L (23-29); Chloride 99 mEq/L (98-107); Glucose 139 mg/dL (70-105); Osmolality,Calculated 307 (280-300); Potassium 4.2 mEq/L (3.5-5.1); Sodium 140 mEq/L (136-145); eGFR For Non-African Americans 53 (> 60)
[2018-04-20] MEDS: Cholestyramine 4 GM POWD.PACK PO SCH ×2 (12:24→18:46)
[2018-04-20] MEDS: Doxycycline 100 MG CAPSULE PO SCH ×2 (12:24→21:14)
[2018-04-20] MEDS: Furosemide 40 MG/4 ML VIAL IVP SCH ×2 (12:25→18:46)
[2018-04-20] MEDS: Aspirin Enteric Coated 81 MG Tablet PO SCH (12:25)
[2018-04-20] MEDS: Metoprolol XL (24 HR) Succ 25 MG TAB.ER.24H PO SCH (12:25)
[2018-04-20] MEDS: Lactulose Oral Soln 20 GM/30 ML UDC PO SCH ×2 (12:25→21:14)
[2018-04-20] MEDS: *HR* Heparin 5,000 UNIT/ML VIAL SQ SCH ×2 (12:25→18:46)
--- NOTE | 2018-04-20 14:41 | Palliative - Consult Note ---
Date of Encounter: 04/20/18 Time of Encounter: 14:35 - Assessment and Plan (1) Generalized pain Current Visit: Yes Status: Acute Assessment and plan: Has Oxycodone available if needed - has only utilized x1 last 24 hours. If pain increases, frequency could be increased on Oxycodone, however, would titrate slowly with current mental status and some encephalopathy. (2) Dyspnea Current Visit: No Status: Acute Assessment and plan: He continues with IV diuretics, aerosols, oxygen.. He is not compliant with fluid restrictions, and demands water constantly. If they transition to hospice care at home, they can assist with symptom management and begin low dose opioids, - waiting on that decision. Qualifiers: Dyspnea type: unspecified Qualified Code(s): R06.00 - Dyspnea, unspecified (3) Advance care planning Current Visit: No Status: Acute Assessment and plan: Spoke with Ciarra at bedside - patient is talking constantly demanding water and food constantly. He is difficult to keep focused during conversation. He repeats his words frequently - CT scan of head pending. Discussed goals of care at length including code status. He does not want placed on ventilator and does not want CPR. at bedside in agreement and code status transitioned at this time to DNRCC-Arrest/DNI. I discussed that he is appropriate for hospice care at home, and that this could be in addition to his passport. Discussed ECF placement, as recommended by PT, and pt became upset and said he refuses correction placement and demands to go home. at bedside expressed that she is totally exhausted by his behavior and hasn't slept. Patient does not want her to leave his room. and patient to consider hospice referral and will re-address with them again tomorrow. They both are very limited in their understanding, even after explanation. Will readdress tomorrow. If his CT is negative, (4) Ascites Current Visit: No Status: Acute Qualifiers: Ascites type: other type Qualified Code(s): R18.8 - Other ascites (5) COPD (chronic obstructive pulmonary disease) Current Visit: No Status: Chronic 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 - Other emphysema (6) Cardiomyopathy Current Visit: No Status: Chronic Assessment and plan: Last known EF 20-25%. He follows with cardiology outpt. AICD place earlier this summer. Qualifiers: Cardiomyopathy type: ischemic Qualified Code(s): I25.5 - Ischemic cardiomyopathy Palliative-CN HPI - Data of Consult Requesting Physician: Chris Zelaya Primary Care Provider: Zackary Hale MD - Consult Narrative History of present illness: Mr. Emmanuel is a 62 year old male known to the palliative care team from a previous visit in January, who presented to hospital with abd pain. Patient has been hospitalized x7 since October 2017 with exacerbations of CHF. Palliative saw him this summer for goals of care discussion, when he initially refused AICD placement, however, after discussion with family, he changed his mind and desired the AICD and changed his code status back to full code. He has medical history pertinent for cardiomyopathy (Last known ER 20%), CAD, AICD, Diabetes, COPD, Chronic resp failure on home oxygen, chronic pancreatitis. He was hospitalized earlier this month for CHF exacerbation and RANDA, and a few days ago for hepatic encephalopathy. He and has history of noncompliance with diet and fluid restrictions. He lives with his and they have grandson with mental illness that resides with them also. Upon my visit, is at bedside. She is concerned that he continues to repeat himself, and he does do this while I am in room, however, he is alert and oriented x3 and answers questions appropriately. He is telling me he wants to go home tomorrow. PT is in room, as well as Dr. Zelaya who will be ordering CT of head. He appears in no distress and denies pain at present. CC: Chris Zelaya - Time Spent with Patient Time: Total time spent is greater than 50% in coordination of care (as documented) at patient's floor/unit and/or counseling patient: Greater than 35 minutes Past Med Surg Social Fam HX - Past Medical History Medical history: cancer, cardiomyopathy, COPD, coronary artery disease, diabetes , hyperlipidemia, hypertension, myocardial infarction, other Additional medical history: pancreatitis. short-term memory problems Psychiatric history: no psych history - Past Surgical History Surgical History: angioplasty/stent, cataract, herniorrhaphy, other Additional surgical history: x3 stents - Social History Smoking Status: Current every day smoker Smokeless Tobacco Status: No Alcohol use: none Drug use: none - Family History Father Adopted: No Living Status: Hx Family Cardiac Disorders: No Hx Family Respiratory Disorders: Yes Hx Family Cancer: Yes Hx Family GI Disorders: No Hx Family Endocrine Disorder: No Hx Family Neuromuscular Disorders: No Hx Family Neurologic Disorders: No Hx Family HEENT Disorders: No Hx Family Autoimmune Disorders: No Mother Adopted: No Family Member Ethnicity: Non- Living Status: Hx Family Cardiac Disorders: No Hx Family Respiratory Disorders: Yes Hx Family Cancer: Yes Hx Family GI Disorders: No Hx Family Endocrine Disorder: Yes Hx Family Neuromuscular Disorders: No Hx Family Neurologic Disorders: No Hx Family HEENT Disorders: No Hx Family Autoimmune Disorders: No Medications and Allergies Albuterol Sulfate [Albuterol Inhaler] 2 puff IH Q4HR PRN 05/17/15 [History] Ezetimibe [Zetia] 10 mg PO DAILY 05/17/15 [History] Metformin HCl [Glucophage] 1,000 mg PO BID 05/17/15 [History] Tiotropium [Spiriva] 18 mcg IH DAILY 05/17/15 [History] Clopidogrel [Plavix] 75 mg PO DAILY 10/27/17 [History] Lisinopril [Zestril] 2.5 mg PO DAILY PRN 10/27/17 [History] Metoprolol Succinate [Toprol Xl] 25 mg PO DAILY 10/27/17 [History] Lipase/Protease/Amylase [Creon Dr 12,000 Units Capsule] 1 cap PO BIDWM 11/10/17 [History] Cholestyramine 4 g PO BID 01/24/18 [History] Perphenazine [Trilafon] 8 mg PO HS 01/24/18 [History] Tamsulosin [Flomax] 0.4 mg PO DAILY #30 capsule 02/04/18 [Rx] Bacitracin OINT [Ak-Tracin] 1 appl TP BID 30 Days #1 tube 03/23/18 [Rx] Nystatin Cream [Mycostatin Cream] 1 appl TP BID 30 Days #1 tube 03/23/18 [Rx] Aspirin [Lo-Dose Aspirin EC] 81 mg PO DAILY 04/09/18 [History] Furosemide [Lasix] 40 mg PO BID 04/09/18 [History] Lactulose 20 gm PO BID #60 udc 04/14/18 [Rx] 3 Allergy/AdvReac Type Severity Reaction Status Date / Time loxapine [From Loxitane] Allergy See Verified 04/16/18 10:55 Comments betamethasone AdvReac Hives Verified 04/16/18 10:55 [From Lotrisone] clotrimazole [From Lotrisone] AdvReac Hives Verified 04/16/18 10:55 Sulfa (Sulfonamide AdvReac Hives Verified 04/16/18 10:55 Antibiotics) All systems: reviewed and no additional remarkable complaints except as stated ( occasional abd pain, shortness of breath, lower extremity and abd swelling, weakness) Palliative Care-Exam - Constitutional Vitals: Temp Pulse Resp BP Pulse Ox 97.8 F 101 18 101/68 98 04/20/18 12:02 04/20/18 12:02 04/20/18 12:02 04/20/18 12:02 04/20/18 12:02 General appearance: Present: disheveled, obese - Head Head Exam: Present: normal inspection, normocephalic - Respiratory Respiratory exam: Present: decreased breath sounds Additional comments: Crackles bilateral lower extremities - Cardiovascular Cardiovascular exam: Present: irregular rhythm - GI/Abdominal Exam GI/Abdominal exam: Present: distended, normal bowel sounds - Extremities Exam Additional comments: 2-3+ edema lower extremities. Wrapped with Kerlix from seeping - Neurological Exam Neurological exam: Present: alert, oriented X3, strengths equal and symetr throughout Additional comments: Patient with repetitive speech. Is alert and oriented and follows commands. CT head pending. - Skin Skin exam: Present: dry, warm Internal Medicine - CN: Reslt - Labs CBC & Chem 7: 04/20/18 10:03 04/20/18 10:03 Labs: Short CBC 04/20/18 Range/Units 10:03 WBC 6.2 (4.3-11.1) K/mcL Hgb 10.9 L (12.9-16.9) g/dL Hct 37.4 L (37.5-50.1) % Plt Count 160 (140-400) K/mcL Neutrophils # 4.4 (1.6-8.9) K/mcL BMP 04/20/18 10:03 Sodium 140 Potassium 4.2 Chloride 99 Carbon Dioxide 33 H BUN 53 H Creatinine 1.35 H Glucose 139 H Calcium 9.0 - ABG Interpretation ABG results: PT/INR, D-dimer PT 16.5 Seconds (9.4-12.1) H 04/16/18 11:16 Consult Discharge Plan - Plan Referrals: Zackary Hale MD [Primary Care Provider] - Palliative Quality Palliative Quality: Screen for Code Status: Yes, Screen for Goals of Care: Yes, Screen for Pain: Yes, If Pain Regimen Started, Initiate Bowel Regimen: NA, Screen for Nausea/Vomitting: Yes
[2018-04-20] MEDS: Nystatin Cream 15 GM TUBE TP SCH ×2 (16:40→21:14)
[2018-04-20] MEDS ORDERED: hydrOXYzine pamoate 25 MG CAPSULE PO ONE (18:00)
--- NOTE | 2018-04-20 20:52 | Internal Med Progress Note ---
Hospitalist Progress Note - Encounter Date of Encounter: 04/20/18 Time of Encounter: 11:00 - Subjective Interval History: Patient with history of cardiomyopathy with LVEF of 20-25%, coronary arterial disease and AICD placement presents with shortness of breath secondary to acute on chronic systolic heart failure. Patient and family was educated again about sodium and fluid restriction. Continuing IV diuresis Palliative care consulted for possible home hospice versus ECF - Exam Vitals: Temp Pulse Resp BP Pulse Ox 98.1 F 88 18 99/65 99 04/20/18 19:25 04/20/18 19:25 04/20/18 19:25 04/20/18 19:25 04/20/18 19:25 Exam: Gen.: Nonacute distress, alert and oriented 3 Cardiovascular: Normal S1 and S2 regular rate rhythm no murmurs rubs or gallops Skin: Normal color - Assessment and Plan (1) 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 Current Visit: Yes Status: Acute Assessment and Plan: Continue lasix, IV 40mg BID Monitor I/Os Fluid restriction diet to 1L daily Daily weight checks, some weight loss documented Patient with multiple recurrent admissions for same CXR with stable congestion BNP 1457 (2) COPD without exacerbation Current Visit: Yes Status: Chronic Assessment and Plan: duonebs prn, continue home MDIs No indication for steroids or antibiotics (3) Elevated troponin Current Visit: Yes Status: Acute Assessment and Plan: Chronic, likely due to demand ischemia in the setting of acute on chronic kidney failure 0.07-0.08 EKG is paced Continue to monitor No indication to repeat ECHO (4) Ischemic cardiomyopathy Current Visit: Yes Status: Chronic Assessment and Plan: Continue home medications and IV diuresis as above (5) HTN (hypertension) Current Visit: Yes Status: Chronic Assessment and Plan: continue home meds (6) Diabetes Current Visit: Yes Status: Chronic Assessment and Plan: SSI, ADA diet (7) Anasarca Current Visit: Yes Status: Chronic Assessment and Plan: management as in [facility] (8) Cellulitis Current Visit: Yes Status: Acute Assessment and Plan: Continue doxycycline 100mg BID IV [id number] 3 Patient with multiple excoriations on the LE in the setting of fluid overload and anasarca, as well as chronic venous congestion Continue lasix Consult wound care, eval pending (9) Acute on chronic renal failure Current Visit: Yes Status: Acute Assessment and Plan: Resolved; continue to monitor (10) Obstructive sleep apnea Current Visit: Yes Status: Chronic Assessment and Plan: CPAP at bedtime (11) Bipolar 1 disorder, manic, mild Current Visit: Yes Status: Chronic Assessment and Plan: continue home meds (12) Obesity Current Visit: Yes Status: Chronic Assessment and Plan: lifestyle modification (13) DVT prophylaxis Current Visit: Yes Status: Acute Assessment and Plan: SQ heparin - Time Spent with Patient Total time spent is greater than 50% in coordination of care (as documented) at patient's floor/unit and/or counseling patient: Internal Medicine: Result - Labs CBC & Chem 7: 04/21/18 10:24 04/21/18 10:24 Labs: Short CBC 04/20/18 Range/Units 10:03 WBC 6.2 (4.3-11.1) K/mcL Hgb 10.9 L (12.9-16.9) g/dL Hct 37.4 L (37.5-50.1) % Plt Count 160 (140-400) K/mcL Neutrophils # 4.4 (1.6-8.9) K/mcL BMP 04/20/18 10:03 Sodium 140 Potassium 4.2 Chloride 99 Carbon Dioxide 33 H BUN 53 H Creatinine 1.35 H Glucose 139 H Calcium 9.0 - ABG Interpretation ABG results: PT/INR, D-dimer PT 16.5 Seconds (9.4-12.1) H 04/16/18 11:16 - Impressions Impressions Head CT 04/20/18 15:15 IMPRESSION: No acute intracranial abnormality. D/ / Tasha Mitchell MD / Tasha Mitchell MD Interpreting Provider: Tasha Mitchell MD Consult Discharge Plan - Plan Referrals: Zackary Hale MD [Primary Care Provider] - Prescriptions: Doxycycline 100 mg PO BID #14 capsule (5) HTN (hypertension) Qualifiers: Hypertension type: essential hypertension Qualified Code(s): I10 - Essential (primary) hypertension (6) Diabetes Qualifiers: Diabetes mellitus type: type 2 Diabetes mellitus detention insulin use: without detention use Diabetes mellitus complication status: with other specified complication Qualified Code(s): E11.69 - Type 2 diabetes mellitus with other specified complication (8) Cellulitis Qualifiers: Site of cellulitis: extremity Site of cellulitis of extremity: lower extremity Laterality: unspecified laterality Qualified Code(s): L03.119 - Cellulitis of unspecified part of limb (9) Acute on chronic renal failure Qualifiers: Acute renal failure type: unspecified Chronic kidney disease stage: stage 3 ( moderate) Qualified Code(s): N17.9 - Acute kidney failure, unspecified; N18.3 - Chronic kidney disease, stage 3 (moderate) (12) Obesity Qualifiers: Obesity type: due to excess calories Obesity classification: adult class 3 ( BMI >= 40) Serious obesity comorbidity presence: without serious comorbidity Body mass index: BMI 40.0-44.9 Qualified Code(s): E66.01 - Morbid (severe) obesity due to excess calories; Z68.41 - Body mass index (BMI) 40.0-44.9, adult
[2018-04-20] MEDS: Perphenazine 8 MG TABLET PO SCH (21:14)
[2018-04-20] MEDS: Insulin DETEMIR 100 UNIT/ML X5UNITS SQ SCH (21:15)
[2018-04-21] MEDS: Insulin LISPRO 300 UNITS/3 ML VIAL SQ SCH ×3 (00:11→12:32)
[2018-04-21] MEDS: *HR* Heparin 5,000 UNIT/ML VIAL SQ SCH ×2 (03:17→10:37)
[2018-04-21] MEDS: Tiotropium 18 MCG inhalation IH SCH (07:38)
[2018-04-21] MEDS: Lactulose Oral Soln 20 GM/30 ML UDC PO SCH (10:37)
[2018-04-21] MEDS: Doxycycline 100 MG CAPSULE PO SCH (10:37)
[2018-04-21] MEDS: Furosemide 40 MG/4 ML VIAL IVP SCH (10:38)
[2018-04-21] MEDS: Metoprolol XL (24 HR) Succ 25 MG TAB.ER.24H PO SCH (10:38)
[2018-04-21] MEDS: Aspirin Enteric Coated 81 MG Tablet PO SCH (10:38)
[2018-04-21 10:54] LABS: Basophils % 0.3 %; Eosinophils # 0.2 K/mcL (0.0-0.6); Eosinophils % 2.7 %; Hematocrit 36.4 % (37.5-50.1); Hemoglobin 10.8 g/dL (12.9-16.9); Immature Granulocytes % 0.3 % (0-4); Lymphocytes # 0.8 K/mcL (0.6-4.6); Lymphocytes % 11.2 %; Mean Corpuscular HGB Conc 29.7 g/dL (31.6-35.5); Mean Corpuscular Hemoglobin 30.2 pg (28.0-33.3); Mean Corpuscular Volume 101.7 fL (83.0-100.0); Mean Platelet Volume 10.4 fL (9.4-12.4); Monocytes # 0.9 K/mcL (0.0-1.3); Monocytes % 12.7 %; Neutrophils # 4.9 K/mcL (1.6-8.9); Platelet Count 157 K/mcL (140-400); Red Blood Count 3.58 M/mcL (4.19-5.50); Red Cell Distribution Width 17.1 % (11.5-14.5); Segmented Neutrophils % 72.8 %
[2018-04-21 11:06] LABS: BUN/Creatinine Ratio 36 (6-26); Blood Urea Nitrogen 45 mg/dL (8-23); Carbon Dioxide 36 mEq/L (23-29); Chloride 98 mEq/L (98-107); Glucose 159 mg/dL (70-105); Osmolality,Calculated 303 (280-300); Potassium 4.2 mEq/L (3.5-5.1); Sodium 139 mEq/L (136-145); eGFR For Non-African Americans 58 (> 60)
[2018-04-21] MEDS: Cholestyramine 4 GM POWD.PACK PO SCH (12:32)
[2018-04-21] MEDS: Nystatin Cream 15 GM TUBE TP SCH (12:34)
--- NOTE | 2018-04-21 13:10 | Palliative Progress Note ---
Date of Encounter: 04/21/18 Time of Encounter: 12:00 - Assessment and plan (1) Generalized pain Current Visit: Yes Status: Acute Assessment and plan: Has Oxycodone available but has not utilized in over 24 hours. Monitor (2) Dyspnea Current Visit: No Status: Acute Assessment and plan: Continues with supportive oxygen, diuretics, fluid restrictions. Qualifiers: Dyspnea type: unspecified Qualified Code(s): R06.00 - Dyspnea, unspecified (3) Advance care planning Current Visit: No Status: Acute Assessment and plan: Spoke with pt and this am re: ongoing goals of care discussion and prognosis with CHF. He states he is tired of coming to hospital, but needs help when is in pain and having trouble with breathing. Discussed the options of hospice support at home and he would like to enroll. Desired [facility] to provide services. in agreement. Attempted to educate at length , that the goal of hospice would be to manage his symptoms and try to maintain his care at home. Discussed his AICD - he desires to leave this as is at this time. WE did discuss that if he condition would deteriorate and if he would be close to passing away, hospice can turn off this device in the home, so he does not have repeated shocks while dying. Patient and verbalized understanding. He did repeatly tell me "I want to go home now", during our discussion and difficult time keeping him focused. (4) Ascites Current Visit: No Status: Acute Qualifiers: Ascites type: other type Qualified Code(s): R18.8 - Other ascites (5) COPD (chronic obstructive pulmonary disease) Current Visit: No Status: Chronic 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 - Other emphysema (6) Cardiomyopathy Current Visit: No Status: Chronic Qualifiers: Cardiomyopathy type: ischemic Qualified Code(s): I25.5 - Ischemic cardiomyopathy - Time Spent With Patient Total time spent is greater than 50% in coordination of care (as documented) at patient's floor/unit and/or counseling patient: Greater than 35 minutes - Subjective Interval history: Patient up in chair, eating lunch, at bedside. Anxious and adamant he is going home today. Denies any complaints - states "I feel good". States slept well last night. - Constitutional Vitals: Abnormal lab results RBC 3.58 M/mcL (4.19-5.50) L 04/21/18 10:24 Hgb 10.8 g/dL (12.9-16.9) L 04/21/18 10:24 Hct 36.4 % (37.5-50.1) L 04/21/18 10:24 MCV 101.7 fL (83.0-100.0) H 04/21/18 10:24 MCHC 29.7 g/dL (31.6-35.5) L 04/21/18 10:24 RDW 17.1 % (11.5-14.5) H 04/21/18 10:24 PT 16.5 Seconds (9.4-12.1) H 04/16/18 11:16 Carbon Dioxide 36 mEq/L (23-29) H 04/21/18 10:24 BUN 45 mg/dL (8-23) H 04/21/18 10:24 Est GFR (Non-Af Amer) 58 (> 60) L 04/21/18 10:24 BUN/Creatinine Ratio 36 (6-26) H 04/21/18 10:24 Glucose 159 mg/dL (70-105) H 04/21/18 10:24 POC Glucose 217 mg/dL (70-99) H 04/20/18 20:14 Calculated Osmolality 303 (280-300) H 04/21/18 10:24 Uric Acid 9.4 mg/dL (2.3-7.6) H 04/17/18 05:48 Total Bilirubin 1.5 mg/dL (0.3-1.0) H 04/16/18 11:16 Direct Bilirubin 0.8 mg/dL (0.0-0.2) H 04/16/18 11:16 AST 46 Units/L (13-39) H 04/16/18 11:16 Ammonia 69 mcmol/L (16-53) H 04/16/18 11:16 Troponin I 0.08 ng/mL (< 0.04) H* 04/17/18 05:48 B-Natriuretic Peptide 1457 pg/mL (Less than 100) H 04/16/18 11:16 General appearance: Present: no acute distress - Respiratory Respiratory exam: Present: decreased breath sounds Additional comments: Faint inspiratory crackles to bilateral lower lungs posteriorally - Cardiovascular Cardiovascular exam: Present: +S1, +S2 - GI/Abdominal GI/Abdominal exam: Present: diminished bowel sounds, distended, soft - Extremities Exam Additional comments: Lower legs dressed bilaterally - Wrapped with kerlix. - Neurological Exam Neurological exam: Present: alert, oriented X3, strengths equal and symetr throughout - Skin Skin exam: Present: dry, pallor, warm Palliative Quality Palliative Quality: Screen for Code Status: Yes, Screen for Goals of Care: Yes, Screen for Pain: Yes, If Pain Regimen Started, Initiate Bowel Regimen: NA, Screen for Nausea/Vomitting: Yes Code Status: 04/20/18 15:27 DNR [Resuscitation Status: Active] [RES] Routine Comment: Resuscitation Status: [id number] - Labs CBC & Chem 7: 04/21/18 10:24 04/21/18 10:24 Labs: Laboratory Results - last 24 hr 04/19/18 04/19/18 04/20/18 16:48 20:10 07:43 WBC RBC Hgb Hct MCV MCH MCHC RDW Plt Count MPV Immature Gran % Seg Neutrophils % Lymphocytes % Monocytes % Eosinophils % Basophils % Neutrophils # Lymphocytes # Monocytes # Eosinophils # Basophils # Sodium Potassium Chloride Carbon Dioxide BUN Creatinine Est GFR ( Amer) Est GFR (Non-Af Amer) BUN/Creatinine Ratio Glucose POC Glucose 158 H 162 H 137 H Calculated Osmolality Calcium Specimen Rejected 04/20/18 04/20/18 04/20/18 12:01 16:54 17:30 WBC RBC Hgb Hct MCV MCH MCHC RDW Plt Count MPV Immature Gran % Seg Neutrophils % Lymphocytes % Monocytes % Eosinophils % Basophils % Neutrophils # Lymphocytes # Monocytes # Eosinophils # Basophils # Sodium Potassium Chloride Carbon Dioxide BUN Creatinine Est GFR ( Amer) Est GFR (Non-Af Amer) BUN/Creatinine Ratio Glucose POC Glucose 113 H 169 H Calculated Osmolality Calcium Specimen Rejected Hemolyzed 04/20/18 04/21/18 04/21/18 20:14 10:24 10:24 WBC 6.8 RBC 3.58 L Hgb 10.8 L Hct 36.4 L MCV 101.7 H MCH 30.2 MCHC 29.7 L RDW 17.1 H Plt Count 157 MPV 10.4 Immature Gran % 0.3 Seg Neutrophils % 72.8 Lymphocytes % 11.2 Monocytes % 12.7 Eosinophils % 2.7 Basophils % 0.3 Neutrophils # 4.9 Lymphocytes # 0.8 Monocytes # 0.9 Eosinophils # 0.2 Basophils # 0.0 Sodium 139 Potassium 4.2 Chloride 98 Carbon Dioxide 36 H BUN 45 H Creatinine 1.25 Est GFR ( Amer) > 60 Est GFR (Non-Af Amer) 58 L BUN/Creatinine Ratio 36 H Glucose 159 H POC Glucose 217 H Calculated Osmolality 303 H Calcium 9.0 Specimen Rejected - Impressions Impressions Head CT 04/20/18 15:15 IMPRESSION: No acute intracranial abnormality. D/ / Tasha Mitchell MD / Tasha Mitchell MD Interpreting Provider: Tasha Mitchell MD - ABG Interpretation ABG results: PT/INR, D-dimer PT 16.5 Seconds (9.4-12.1) H 04/16/18 11:16 Consult Discharge Plan - Plan Referrals: Zackary Hale MD [Primary Care Provider] -
--- NOTE | 2018-04-21 14:51 | Discharge Summary ---
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 Priority: Primary Status: Acute (2) COPD without exacerbation Priority: Secondary Status: Chronic (3) Elevated troponin Priority: Secondary Status: Acute (4) Ischemic cardiomyopathy Priority: Secondary Status: Chronic (5) HTN (hypertension) Priority: Secondary Status: Chronic Qualifiers: Hypertension type: essential hypertension Qualified Code(s): I10 - Essential (primary) hypertension (6) Diabetes Priority: Secondary Status: Chronic Qualifiers: Diabetes mellitus type: type 2 Diabetes mellitus snf insulin use: without termite renewal inspector use Diabetes mellitus complication status: with other specified complication Qualified Code(s): E11.69 - Type 2 diabetes mellitus with other specified complication (7) Anasarca Priority: Secondary Status: Chronic (8) Cellulitis Priority: Secondary Status: Acute Qualifiers: Site of cellulitis: extremity Site of cellulitis of extremity: lower extremity Laterality: unspecified laterality Qualified Code(s): L03.119 - Cellulitis of unspecified part of limb (9) Acute on chronic renal failure Priority: Secondary Status: Acute Qualifiers: Acute renal failure type: unspecified Chronic kidney disease stage: stage 3 (moderate) Qualified Code(s): N17.9 - Acute kidney failure, unspecified; N18.3 - Chronic kidney disease, stage 3 (moderate) (10) Obstructive sleep apnea Priority: Secondary Status: Chronic (11) Bipolar 1 disorder, manic, mild Priority: Secondary Status: Chronic (12) Obesity Priority: Secondary Status: Chronic Qualifiers: Obesity type: due to excess calories Obesity classification: adult class 3 (BMI >= 40) Serious obesity comorbidity presence: without serious comorbidity Body mass index: BMI 40.0-44.9 Qualified Code(s): E66.01 - Morbid (severe) obesity due to excess calories; Z68.41 - Body mass index (BMI) 40.0-44.9, adult Hospital course: Patient is a 62-year-old male with past medical history significant for cardiomyopathy with EF of 20-25%, coronary artery disease, status post AICD, diabetes, hypertension, COPD and chronic respiratory failure on 2 L nasal cannula and chronic pancreatitis presented to the ER with complaints of shortness of breath. He was just discharged from this facility for management of RANDA on CKD and CHFE. In the ER, patient was found to have acute on chronic kidney injury, hyperkalemia, pneumonia level slightly elevated, lactic acidosis (initial lactate was normal), lipase is within normal limit. BNP is elevated above baseline at discharge 2 days ago. Troponin elevated at 0.08. Abdomen CAT scan is nonspecific, however, right upper quadrant shows diffuse inflammation suspicious for acute cholecystitis, acute cystitis. He has a moderate right pleural effusion. There is no bowel obstruction. Liver Function tests was normal. Patient was admitted to medical surgical floor for management of acute on chronic heart failure and cellulitis. During patients hospital stay his symptoms of shortness of breath improved with IV diuresis. Palliative care was consulted with recommendations for home hospice which patient and spouse agreed to. Patient will be discharged with home hospice. Patient will also continue a 7 day course of doxycycline for cellulitis. - Time Spent with Patient Total time spent providing and/or coordinating discharge services: Less than 30 minutes - Discharge Medications Prescriptions: Doxycycline 100 mg PO BID #14 capsule Home Medications: Albuterol Sulfate [Albuterol Inhaler] 2 puff IH Q4HR PRN 05/17/15 [History] Ezetimibe [Zetia] 10 mg PO DAILY 05/17/15 [History] Metformin HCl [Glucophage] 1,000 mg PO BID 05/17/15 [History] Tiotropium [Spiriva] 18 mcg IH DAILY 05/17/15 [History] Clopidogrel [Plavix] 75 mg PO DAILY 10/27/17 [History] Lisinopril [Zestril] 2.5 mg PO DAILY PRN 10/27/17 [History] Metoprolol Succinate [Toprol Xl] 25 mg PO DAILY 10/27/17 [History] Lipase/Protease/Amylase [Creon Dr 12,000 Units Capsule] 1 cap PO BIDWM 11/10/17 [History] Cholestyramine 4 g PO BID 01/24/18 [History] Perphenazine [Trilafon] 8 mg PO HS 01/24/18 [History] Tamsulosin [Flomax] 0.4 mg PO DAILY #30 capsule 02/04/18 [Rx] Bacitracin OINT [Ak-Tracin] 1 appl TP BID 30 Days #1 tube 03/23/18 [Rx] Nystatin Cream [Mycostatin Cream] 1 appl TP BID 30 Days #1 tube 03/23/18 [Rx] Aspirin [Lo-Dose Aspirin EC] 81 mg PO DAILY 04/09/18 [History] Furosemide [Lasix] 40 mg PO BID 04/09/18 [History] Lactulose 20 gm PO BID #60 udc 04/14/18 [Rx] Doxycycline 100 mg PO BID #14 capsule 04/21/18 [Rx] Allergies/Adverse Reactions: 3 Allergy/AdvReac Type Severity Reaction Status Date / Time loxapine [From Loxitane] Allergy See Verified 04/16/18 10:55 Comments betamethasone AdvReac Hives Verified 04/16/18 10:55 [From Lotrisone] clotrimazole [From Lotrisone] AdvReac Hives Verified 04/16/18 10:55 Sulfa (Sulfonamide AdvReac Hives Verified 04/16/18 10:55 Antibiotics) Date of admission: 04/16/18 18:28 Primary care physician: Zackary Hale MD Consults: 04/17/18 07:46 Consult to Wound Care [CONS] Routine Reason for Consult: Bilat LE weeping wounds Call Completed: Yes 04/19/18 12:31 Consult to Occupational Therapy [CONS] Routine Comment: Evaluate, develop and implement POC Reason for Consult: eval for poss ecf need Does patient have active BEDREST order?: No Is patient medically & hemodynamically stable?: Yes Consult to Physical Therapy [CONS] Routine Comment: Evaluate, develop and implement POC Reason for Consult: eval for poss ecf need Does patient have active BEDREST order?: No Is patient medically & hemodynamically stable?: Yes 04/20/18 12:13 Consult to Palliative Care [CONS] Routine Comment: Consulting Provider: Palliative Care Silvia Reason for Consult: Possible hospice Call Completed: No - Constitutional Vitals: Temp Pulse Resp BP Pulse Ox 98.2 F 93 18 100/73 96 04/21/18 11:01 04/21/18 11:01 04/21/18 11:01 04/21/18 11:01 04/21/18 11:01 General appearance: Present: disheveled, A&O X 2, mild distress, morbidly obese Exam: Gen.: Nonacute distress, alert and oriented 3 Cardiovascular: Normal S1 and S2 regular rate rhythm no murmurs rubs or gallops Skin: Normal color - Patient Status Disposition: Hospice - Home Condition: Fair - Discharge Instructions Follow Up With: Zackary Hale MD [Primary Care Provider] -
--- NOTE | 2018-04-21 14:52 | Physician Discharge Referral ---
Home Health/Hosp Referral Info Transfer to: Hospice - Diagnosis (1) 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 Status: Acute (2) COPD without exacerbation Status: Chronic (3) Elevated troponin Status: Acute (4) Ischemic cardiomyopathy Status: Chronic (5) HTN (hypertension) Status: Chronic (6) Diabetes Status: Chronic (7) Anasarca Status: Chronic (8) Cellulitis Status: Acute (9) Acute on chronic renal failure Status: Acute (10) Obstructive sleep apnea Status: Chronic (11) Bipolar 1 disorder, manic, mild Status: Chronic (12) Obesity Status: Chronic (13) DVT prophylaxis Status: Acute - Respiratory Orders Smoking Cessation: Smoking cessation has been advised. For more information, call the [employer] Tobacco Quit Line at 7-710-SYLI-NOW. - Transfer Medications Prescriptions: Doxycycline 100 mg PO BID #14 capsule Home Medications: Albuterol Sulfate [Albuterol Inhaler] 2 puff IH Q4HR PRN 05/17/15 [History] Ezetimibe [Zetia] 10 mg PO DAILY 05/17/15 [History] Metformin HCl [Glucophage] 1,000 mg PO BID 05/17/15 [History] Tiotropium [Spiriva] 18 mcg IH DAILY 05/17/15 [History] Clopidogrel [Plavix] 75 mg PO DAILY 10/27/17 [History] Lisinopril [Zestril] 2.5 mg PO DAILY PRN 10/27/17 [History] Metoprolol Succinate [Toprol Xl] 25 mg PO DAILY 10/27/17 [History] Lipase/Protease/Amylase [Creon Dr 12,000 Units Capsule] 1 cap PO BIDWM 11/10/17 [History] Cholestyramine 4 g PO BID 01/24/18 [History] Perphenazine [Trilafon] 8 mg PO HS 01/24/18 [History] Tamsulosin [Flomax] 0.4 mg PO DAILY #30 capsule 02/04/18 [Rx] Bacitracin OINT [Ak-Tracin] 1 appl TP BID 30 Days #1 tube 03/23/18 [Rx] Nystatin Cream [Mycostatin Cream] 1 appl TP BID 30 Days #1 tube 03/23/18 [Rx] Aspirin [Lo-Dose Aspirin EC] 81 mg PO DAILY 04/09/18 [History] Furosemide [Lasix] 40 mg PO BID 04/09/18 [History] Lactulose 20 gm PO BID #60 udc 04/14/18 [Rx] Doxycycline 100 mg PO BID #14 capsule 04/21/18 [Rx] Allergies/Adverse Reactions: 3 Allergy/AdvReac Type Severity Reaction Status Date / Time loxapine [From Loxitane] Allergy See Verified 04/16/18 10:55 Comments betamethasone AdvReac Hives Verified 04/16/18 10:55 [From Lotrisone] clotrimazole [From Lotrisone] AdvReac Hives Verified 04/16/18 10:55 Sulfa (Sulfonamide AdvReac Hives Verified 04/16/18 10:55 Antibiotics) Certification: Further, I certify that my clinical findings support that this patient is homebound (i.e. absences from home require considerable and taxing effort and are for medical reasons or [employer] services or infrequently or short duration when for other reasons) because: Homebound Reason: Patient requires assistance of a person or device to safely leave home Attestation: My signature below is to certify that this patient is under my care and that I, or nurse practitioner, or a physician's mortgage loan assistant working with me, has a face-to -face encounter with this patient.
[2018-04-21 16:18] VITALS: BP 108/71
== END 2018-04-21 17:20 | disposition hospice, home (50) | DRG 291 ==
LOC: EMEROOARM 10:45 → 2ANU 10:45 → SUATTDRO 18:28
PROVIDERS: ADMIT Internal Medicine; ATTEND Hospitalist

== ENCOUNTER 2018-04-29 15:15 | Inpatient (IN) ==
[2018-04-29] MEDS ORDERED: Ipratropium/Albuterol Neb 3 ML IH ONE ×2 (15:28→15:32)
--- NOTE | 2018-04-29 15:33 | Emergency Department Note ---
Disposition Clinical Impression: RANDA (acute kidney injury), Elevated troponin Altered mental status Qualifiers: Altered mental status type: unspecified Qualified Code(s): R41.82 - Altered mental status, unspecified Cellulitis Qualifiers: Site of cellulitis: extremity Site of cellulitis of extremity: lower extremity Laterality: unspecified laterality Qualified Code(s): L03.119 - Cellulitis of unspecified part of limb Pulmonary edema Qualifiers: Chronicity: acute Qualified Code(s): J81.0 - Acute pulmonary edema Disposition: Admitted As Inpatient Condition: Good Altered Mental Status HPI - General Chief Complaint: ED Altered Mental Status Stated Complaint: AMS Time Seen by Provider: 04/29/18 15:27 Source: patient Mode of arrival: ambulatory Limitations: no limitations Nursing Notes Reviewed: Yes Vital Signs Reviewed: Yes - History of Present Illness HPI Narrative: Patient with significant past medical history and comorbidities including bipolar, COPD, diabetes, hypertension, cardiomyopathy, CHF, anasarca, obstructive sleep apnea, hepatic encephalopathy here in the emergency department today from home for evaluation of decreased mental status. The patient was recently within the hospital. Discharged approximately 1 week ago. The family states that they got signed up for hospice under the impression that this would allow him to go home they did not understand that this meant that he was not going to further be treated and continued worsen in decline clinically. They state that they do not want hospice. They state that the patient has made his wishes clear at home which is that he wants to live for his long as possible. The patient today is able to answer to his name. He is able to converse but gets confused easily. He likes to keep his eyes closed. He likes to lay on his right side as this allows him to bring the best. The patient is sitting up on his back the weight of his abdomen pushes on his diaphragm and he is unable to get the breasts that he needs. Patient was initially found by EMS with a pulse ox 78%. Patient was not wearing his home oxygen. The patient received breathing treatments and did improve during his drive to the hospital. The patient's blood sugar was checked and found to be 150. Patient has swelling to lower extremities as well as the abdomen consistent with previous diagnosis of anasarca. Also has a chronic Abrams secondary to his inability to ambulate or get around. He also has cellulitis to the lower extremities with seeping wounds. Workup including blood cultures have been sent. We will need to treat positive results as he has multiple etiologies for mental status this point. Family did arrive at bedside. Family has very unrealistic expectations about overall health. They want everything done for the patient. Patient is now a full code. - Related Data Home Medications Medication Instructions Recorded Confirmed Albuterol Sulfate [Albuterol 2 puff IH Q4HR PRN 05/17/15 04/29/18 Inhaler] Ezetimibe [Zetia] 10 mg PO DAILY 05/17/15 04/29/18 Metformin HCl [Glucophage] 1,000 mg PO BID 05/17/15 04/29/18 Tiotropium [Spiriva] 18 mcg IH DAILY 05/17/15 04/29/18 Clopidogrel [Plavix] 75 mg PO DAILY 10/27/17 04/29/18 Lisinopril [Zestril] 2.5 mg PO DAILY PRN 10/27/17 04/29/18 Metoprolol Succinate [Toprol Xl] 25 mg PO DAILY 10/27/17 04/29/18 Lipase/Protease/Amylase [Creon Dr 1 cap PO BIDWM 11/10/17 04/29/18 12,000 Units Capsule] Cholestyramine 4 g PO BID 01/24/18 04/29/18 Perphenazine [Trilafon] 8 mg PO HS 01/24/18 04/29/18 Aspirin [Lo-Dose Aspirin EC] 81 mg PO DAILY 04/09/18 04/29/18 Furosemide [Lasix] 40 mg PO BID 04/09/18 04/29/18 Previous Rx's Medication Instructions Recorded Tamsulosin [Flomax] 0.4 mg PO DAILY #30 capsule 02/04/18 Bacitracin OINT [Ak-Tracin] 1 appl TP BID 30 Days #1 tube 03/23/18 Nystatin Cream [Mycostatin Cream] 1 appl TP BID 30 Days #1 tube 03/23/18 Lactulose 20 gm PO BID #60 udc 04/14/18 Allergies Allergy/AdvReac Type Severity Reaction Status Date / Time loxapine [From Loxitane] Allergy See Verified 04/16/18 10:55 Comments betamethasone AdvReac Hives Verified 04/16/18 10:55 [From Lotrisone] clotrimazole [From Lotrisone] AdvReac Hives Verified 04/16/18 10:55 Sulfa (Sulfonamide AdvReac Hives Verified 04/16/18 10:55 Antibiotics) Limitations: ROS unobtainable due to patients medical condition Past Medical History - Past Medical History Medical history: Reports: cancer, cardiomyopathy, COPD, coronary artery disease , diabetes, hyperlipidemia, hypertension, myocardial infarction, other Surgical history: Reports: angioplasty/stent, cataract, herniorrhaphy, other Psychiatric history: Reports: no psych history - Social History Smoking Status: Current every day smoker Smokeless Tobacco Status: No Alcohol use: Reports: none Drug use: Reports: none Physical Exam General: Patient able to open his eyes and follow commands, able to converse but moderately confused and distractible. Head: Normocephalic Atraumatic Eyes: PERRL, EOMI, swelling to the face and eyes with periorbital edema without erythema or sign of infection likely from fluid overload. ENT: Airway patent, no stridor Neck: supple, Chest: Wheezing associated Rales but somewhat limited secondary to patient habitus Cardiac: Regular rate and rhythm, no murmurs, rubs or gallops Abdomen: soft, nontender, nondistended; no guarding, rebound, or tenderness to percussion Musculoskeletal: Calves symmetric, nontender; significant swelling to lower extremities with associated erythema and nonhealing ulcers Skin: No rash, normal skin tone Neuro: Alert and Oriented to person but not place or time; No focal deficit Course - Reevaluation(s) Reevaluation #1: I did have discussion with family at bedside. Patient has acute kidney injury as well as concern for worsening cellulitis, worsening effusions and continued anasarca. The family was under the impression that he could go home and that he would continue to get better at home. They did not understand hospice correlated with palliative care and expected poor outcome. The patient is able to voice his decision at bedside. He is able to converse. He does state that he wants to be better. Patient does not want compressions are intubations but everything else. The family at bedside does seem to have a better understanding of his overall poor health after my discussion with him, however, the still has significant only unrealistic but at unrealistic expectations of him being able to go home be healthy. Reevaluation #2: Acute kidney injury with fluid overload in the setting of a normal albumin, the patient was given continuous IV normal saline at 100 along with Lasix. This will need further follow-up and management with the hospitalist team. - Consultations Consultation #1: Discussed with hospitalist. Patient accepted for admission. Vital Signs Temperature 97.7 F 04/29/18 15:23 Pulse Rate 91 04/29/18 15:23 Respiratory Rate 18 04/29/18 15:23 Blood Pressure 103/78 04/29/18 15:23 O2 Sat by Pulse Oximetry 95 04/29/18 15:23 Temperature 97.4 F L 04/29/18 22:55 Pulse Rate 79 04/30/18 01:00 Respiratory Rate 14 04/30/18 01:00 Blood Pressure 90/70 04/30/18 01:00 O2 Sat by Pulse Oximetry 94 04/30/18 01:00 Oxygen Delivery Oxygen Delivery Bipap Altered Mental Status - MDM Narrative Medical decision making narrative: I did take care of this patient in the emergency department during his last visit. Somewhat familiar with his overall condition. The patient does have multiple comorbidities including a depressed EF with chronically elevated troponins repeated acute kidney injury and hepatic encephalopathy. The patient' s kidney function today is significantly elevated from baseline. Patient has chronically elevated troponin. The patient continues to have worsening cellulitis of the lower extremities including the left lower extremity which is getting to seat fluid. The patient has a chronic indwelling catheter with urine cultures pending. The patient's Pulmonary edema with concern for possible infiltrates. The patient has been placed on broad-spectrum antibiotics. Blood cultures are pending. Patient's ammonia as well as CO2 without significant elevated to cause confusion today. CT of the head has been ordered secondaryto another explanation. I do believe is likely more related to his chronic medical conditions. - Lab Data Result diagrams: 04/29/18 22:03 04/29/18 22:03 Lab Results 04/29/18 04/29/18 04/29/18 Range/Units 15:26 15:28 15:28 WBC 9.4 (4.3-11.1) K/mcL RBC 4.04 L (4.19-5.50) M/mcL Hgb 12.2 L (12.9-16.9) g/dL Hct 40.3 (37.5-50.1) % MCV 99.8 (83.0-100.0) fL MCH 30.2 (28.0-33.3) pg MCHC 30.3 L (31.6-35.5) g/dL RDW 18.3 H (11.5-14.5) % Plt Count 181 (140-400) K/mcL MPV 10.4 (9.4-12.4) fL Immature Gran % 0.5 (0-4) % Seg Neutrophils % 76.8 % Lymphocytes % 9.9 % Monocytes % 12.6 % Eosinophils % 0.1 % Basophils % 0.1 % Neutrophils # 7.2 (1.6-8.9) K/mcL Lymphocytes # 0.9 (0.6-4.6) K/mcL Monocytes # 1.2 (0.0-1.3) K/mcL Eosinophils # 0.0 (0.0-0.6) K/mcL Basophils # 0.0 (0.0-0.2) K/mcL Nucleated RBCs/100 WBC 2.3 H (0) /100 WBC PT 21.1 H (9.4-12.1) Seconds INR 1.9 VBG pH (7.32-7.42) pH Units VBG pCO2 (41-51) mmHg VBG pO2 (25-50) mmHg VBG HCO3 (21-27) mEq/L Sodium (136-145) mEq/L Potassium (3.5-5.1) mEq/L Chloride (98-107) mEq/L Carbon Dioxide (23-29) mEq/L BUN (8-23) mg/dL Creatinine (0.70-1.30) mg/dL Est GFR ( Amer) (> 60) Est GFR (Non-Af Amer) (> 60) BUN/Creatinine Ratio (6-26) Glucose (70-105) mg/dL POC Glucose 150 H (70-99) mg/dL Calculated Osmolality (280-300) Lactic Acid (0.5-2.2) mmol/L Calcium (8.6-10.3) mg/dL Total Bilirubin (0.3-1.0) mg/dL Direct Bilirubin (0.0-0.2) mg/dL Indirect Bilirubin (0.0-1.2) mg/dL AST (13-39) Units/L ALT (7-52) Units/L Alkaline Phosphatase (34-104) Units/L Ammonia (16-53) mcmol/L Troponin I (< 0.04) ng/mL B-Natriuretic Peptide (Less than 100) pg/mL Serum Total Protein (6.4-8.9) g/dL Albumin (3.5-5.7) g/dL Globulin (2.4-3.5) g/dL Albumin/Globulin Ratio (1.1-2.2) Urine Color (Yellow) Urine Clarity (Clear) Urine pH (5.0-8.0) pH Units Ur Specific Mcgrath (1.010-1.025) Urine Protein (Neg-Trace) mg/dL Urine Glucose (UA) (Normal) mg/dL Urine Ketones (Negative) mg/dL Urine Blood (Negative) Urine Nitrite (Negative) Urine Bilirubin (Negative) Urine Urobilinogen (Normal) mg/dL Ur Leukocyte Esterase (Negative) Urine Microscopic RBC (0-3) per hpf Urine Microscopic WBC (0-3) per hpf Ur Squamous Epith Cells (None-Few) per lpf Urine Bacteria (None-Few) per hpf Hyaline Casts Urine Yeast Ur Culture Indicated? (NO) 04/29/18 04/29/18 04/29/18 Range/Units 15:28 15:28 15:28 WBC (4.3-11.1) K/mcL RBC (4.19-5.50) M/mcL Hgb (12.9-16.9) g/dL Hct (37.5-50.1) % MCV (83.0-100.0) fL MCH (28.0-33.3) pg MCHC (31.6-35.5) g/dL RDW (11.5-14.5) % Plt Count (140-400) K/mcL MPV (9.4-12.4) fL Immature Gran % (0-4) % Seg Neutrophils % % Lymphocytes % % Monocytes % % Eosinophils % % Basophils % % Neutrophils # (1.6-8.9) K/mcL Lymphocytes # (0.6-4.6) K/mcL Monocytes # (0.0-1.3) K/mcL Eosinophils # (0.0-0.6) K/mcL Basophils # (0.0-0.2) K/mcL Nucleated RBCs/100 WBC (0) /100 WBC PT (9.4-12.1) Seconds INR VBG pH (7.32-7.42) pH Units VBG pCO2 (41-51) mmHg VBG pO2 (25-50) mmHg VBG HCO3 (21-27) mEq/L Sodium 135 L (136-145) mEq/L Potassium 5.0 (3.5-5.1) mEq/L Chloride 98 (98-107) mEq/L Carbon Dioxide 28 (23-29) mEq/L BUN 78 H (8-23) mg/dL Creatinine 2.41 H (0.70-1.30) mg/dL Est GFR ( Amer) 33 L (> 60) Est GFR (Non-Af Amer) 27 L (> 60) BUN/Creatinine Ratio 32 H (6-26) Glucose 155 H (70-105) mg/dL POC Glucose (70-99) mg/dL Calculated Osmolality 306 H (280-300) Lactic Acid 2.5 H (0.5-2.2) mmol/L Calcium 8.7 (8.6-10.3) mg/dL Total Bilirubin 1.6 H (0.3-1.0) mg/dL Direct Bilirubin 0.8 H (0.0-0.2) mg/dL Indirect Bilirubin 0.8 (0.0-1.2) mg/dL AST 62 H (13-39) Units/L ALT 62 H (7-52) Units/L Alkaline Phosphatase 68 (34-104) Units/L Ammonia 41 (16-53) mcmol/L Troponin I 0.11 H* (< 0.04) ng/mL B-Natriuretic Peptide (Less than 100) pg/mL Serum Total Protein 5.9 L (6.4-8.9) g/dL Albumin 3.6 (3.5-5.7) g/dL Globulin 2.3 L (2.4-3.5) g/dL Albumin/Globulin Ratio 1.6 (1.1-2.2) Urine Color (Yellow) Urine Clarity (Clear) Urine pH (5.0-8.0) pH Units Ur Specific Mcgrath (1.010-1.025) Urine Protein (Neg-Trace) mg/dL Urine Glucose (UA) (Normal) mg/dL Urine Ketones (Negative) mg/dL Urine Blood (Negative) Urine Nitrite (Negative) Urine Bilirubin (Negative) Urine Urobilinogen (Normal) mg/dL Ur Leukocyte Esterase (Negative) Urine Microscopic RBC (0-3) per hpf Urine Microscopic WBC (0-3) per hpf Ur Squamous Epith Cells (None-Few) per lpf Urine Bacteria (None-Few) per hpf Hyaline Casts Urine Yeast Ur Culture Indicated? (NO) 04/29/18 04/29/18 04/29/18 Range/Units 15:28 15:43 16:05 WBC (4.3-11.1) K/mcL RBC (4.19-5.50) M/mcL Hgb (12.9-16.9) g/dL Hct (37.5-50.1) % MCV (83.0-100.0) fL MCH (28.0-33.3) pg MCHC (31.6-35.5) g/dL RDW (11.5-14.5) % Plt Count (140-400) K/mcL MPV (9.4-12.4) fL Immature Gran % (0-4) % Seg Neutrophils % % Lymphocytes % % Monocytes % % Eosinophils % % Basophils % % Neutrophils # (1.6-8.9) K/mcL Lymphocytes # (0.6-4.6) K/mcL Monocytes # (0.0-1.3) K/mcL Eosinophils # (0.0-0.6) K/mcL Basophils # (0.0-0.2) K/mcL Nucleated RBCs/100 WBC (0) /100 WBC PT (9.4-12.1) Seconds INR VBG pH 7.31 L (7.32-7.42) pH Units VBG pCO2 54 H (41-51) mmHg VBG pO2 155 H (25-50) mmHg VBG HCO3 28 H (21-27) mEq/L Sodium (136-145) mEq/L Potassium (3.5-5.1) mEq/L Chloride (98-107) mEq/L Carbon Dioxide (23-29) mEq/L BUN (8-23) mg/dL Creatinine (0.70-1.30) mg/dL Est GFR ( Amer) (> 60) Est GFR (Non-Af Amer) (> 60) BUN/Creatinine Ratio (6-26) Glucose (70-105) mg/dL POC Glucose (70-99) mg/dL Calculated Osmolality (280-300) Lactic Acid (0.5-2.2) mmol/L Calcium (8.6-10.3) mg/dL Total Bilirubin (0.3-1.0) mg/dL Direct Bilirubin (0.0-0.2) mg/dL Indirect Bilirubin (0.0-1.2) mg/dL AST (13-39) Units/L ALT (7-52) Units/L Alkaline Phosphatase (34-104) Units/L Ammonia (16-53) mcmol/L Troponin I (< 0.04) ng/mL B-Natriuretic Peptide 2049 H (Less than 100) pg/mL Serum Total Protein (6.4-8.9) g/dL Albumin (3.5-5.7) g/dL Globulin (2.4-3.5) g/dL Albumin/Globulin Ratio (1.1-2.2) Urine Color Yellow (Yellow) Urine Clarity Cloudy A (Clear) Urine pH 5.5 (5.0-8.0) pH Units Ur Specific Mcgrath 1.008 L (1.010-1.025) Urine Protein 30 H (Neg-Trace) mg/dL Urine Glucose (UA) Normal (Normal) mg/dL Urine Ketones Negative (Negative) mg/dL Urine Blood Negative (Negative) Urine Nitrite Negative (Negative) Urine Bilirubin Negative (Negative) Urine Urobilinogen Normal (Normal) mg/dL Ur Leukocyte Esterase Trace H (Negative) Urine Microscopic RBC 0-3 (0-3) per hpf Urine Microscopic WBC 5-15 H (0-3) per hpf Ur Squamous Epith Cells Many H (None-Few) per lpf Urine Bacteria None Seen (None-Few) per hpf Hyaline Casts Test Not Performed Urine Yeast Test Not Performed Ur Culture Indicated? NO. A (NO) TPA Checklist - LKW: 3-4.5 hrs Add. Warnings/Precautions Patient/family understanding: The patient/family members have been counseled and understood the risk, benefit , and alternatives of treatment.
[2018-04-29 15:44] LABS: Basophils % 0.1 %; Eosinophils % 0.1 %; Hematocrit 40.3 % (37.5-50.1); Hemoglobin 12.2 g/dL (12.9-16.9); Immature Granulocytes % 0.5 % (0-4); Lymphocytes # 0.9 K/mcL (0.6-4.6); Lymphocytes % 9.9 %; Mean Corpuscular HGB Conc 30.3 g/dL (31.6-35.5); Mean Corpuscular Hemoglobin 30.2 pg (28.0-33.3); Mean Corpuscular Volume 99.8 fL (83.0-100.0); Mean Platelet Volume 10.4 fL (9.4-12.4); Monocytes # 1.2 K/mcL (0.0-1.3); Monocytes % 12.6 %; Neutrophils # 7.2 K/mcL (1.6-8.9); Nucleated Red Blood Cells 2.3 /100 WBC (0); Platelet Count 181 K/mcL (140-400); Red Blood Count 4.04 M/mcL (4.19-5.50); Red Cell Distribution Width 18.3 % (11.5-14.5); Segmented Neutrophils % 76.8 %
[2018-04-29 15:45] LABS: VBG HCO3 28 mEq/L (21-27); VBG PCO2 54 mmHg (41-51); VBG PH 7.31 pH Units (7.32-7.42); VBG PO2 155 mmHg (25-50)
[2018-04-29 15:51] LABS: INR 1.9; Prothrombin Time 21.1 Seconds (9.4-12.1)
[2018-04-29 16:07] LABS: Albumin 3.6 g/dL (3.5-5.7); Albumin/Globulin Ratio 1.6 (1.1-2.2); Bilirubin,Direct 0.8 mg/dL (0.0-0.2); Bilirubin,Indirect 0.8 mg/dL (0.0-1.2); Bilirubin,Total 1.6 mg/dL (0.3-1.0); Calcium 8.7 mg/dL (8.6-10.3); Globulin 2.3 g/dL (2.4-3.5); Total Protein 5.9 g/dL (6.4-8.9)
[2018-04-29 16:10] LABS: Troponin I 0.11 ng/mL (< 0.04)
[2018-04-29 16:19] LABS: Bilirubin,Urine Negative (Negative); Blood,Urine Negative (Negative); Clarity,Urine Cloudy (Clear); Color,Urine Yellow (Yellow); Glucose,Urine (UA) Normal (Normal); Ketones,Urine Negative (Negative); Leukocyte Esterase,Urine Trace (Negative); Nitrite,Urine Negative (Negative); PH,Urine 5.5 pH Units (5.0-8.0); Protein,Urine 30 mg/dL (Neg-Trace); Specific Gravity,Urine 1.008 (1.010-1.025); Urobilinogen,Urine Normal (Normal)
[2018-04-29 16:20] LABS: Bacteria,Urine None Seen per hpf (None-Few); RBC,Urine 0-3 per hpf (0-3); Squamous Epithelial Cell,Urine Many per lpf (None-Few)
[2018-04-29] MEDS ORDERED: Piperacillin/Tazobactam 3.375 GM in 0.9 % Sodium Chloride Mini Bag 100 ML IVPB ONE (17:08)
[2018-04-29] MEDS ORDERED: Furosemide 40 MG/4 ML VIAL IVP ONE (17:19)
[2018-04-29] MEDS ORDERED: 0.9 % Sodium Chloride 1,000 ML IVC SCH (17:30)
[2018-04-29] MEDS ORDERED: traMADol 50 MG TABLET PO PRN (17:31)
[2018-04-29] MEDS ORDERED: Naloxone 0.4 MG/ML INJ IVP PRN (17:31)
[2018-04-29] MEDS ORDERED: Albuterol 2.5 MG/3 ML NEBULIZER IH PRN (17:39)
[2018-04-29] MEDS ORDERED: *HR* Dextrose 50 % in Water (Syg) 50 ML SYRINGE IVP PRN (17:39)
[2018-04-29] MEDS ORDERED: D5% in Water 1,000 ML IVC PRN (17:39)
[2018-04-29] MEDS ORDERED: Dextrose Gel 15 GM/37.5 ML TUBE PO PRN ×2 (17:39)
[2018-04-29] MEDS ORDERED: *HR* Heparin 5,000 UNIT/ML VIAL SQ SCH (18:00)
[2018-04-29] MEDS ORDERED: D5% in 0.9% NACL 1,000 ML IVC SCH ×3 (18:15→18:45)
--- NOTE | 2018-04-29 18:27 | Internal Med History&Physical ---
Date of Encounter: 04/29/18 Time of Encounter: 18:16 Internal Medicine - H&P: HPI Chief complaint: Altered mental status. Sepsis Admitted From: Home Plans for Post Hospital Care: Home History of present illness: Mr. Emmanuel is a 63 year old male PMH significant for severe HFrEF s/p AICD e.f 20-25, CAD, diabetes, hypertension, COPD, and chronic respiratory failure. Patient was brought to the emergency room from home, due to generalized weakness and poor by mouth intake for the past couple of days, associated with change in mental status, and decreased urinary output. Family denies fever, chills but reports a nonproductive cough, which has been more frequent for the past couple of days. They also reports that he seems that the patient has been swelling. Patient was recently discharged home with home hospice, but the family wants everything to be done during this admission. They stated that they did not understand what hospice was about. Past Med Surg Social Fam HX - Past Medical History Medical history: cancer, cardiomyopathy, COPD, coronary artery disease, diabetes , hyperlipidemia, hypertension, myocardial infarction, other Additional medical history: pancreatitis. short-term memory problems Psychiatric history: no psych history - Past Surgical History Surgical History: angioplasty/stent, cataract, herniorrhaphy, other Additional surgical history: x3 stents - Social History Smoking Status: Current every day smoker Smokeless Tobacco Status: No Alcohol use: none Drug use: none - Family History Father Adopted: No Living Status: Hx Family Cardiac Disorders: No Hx Family Respiratory Disorders: Yes Hx Family Cancer: Yes Hx Family GI Disorders: No Hx Family Endocrine Disorder: No Hx Family Neuromuscular Disorders: No Hx Family Neurologic Disorders: No Hx Family HEENT Disorders: No Hx Family Autoimmune Disorders: No Mother Adopted: No Family Member Ethnicity: Non- Living Status: Hx Family Cardiac Disorders: No Hx Family Respiratory Disorders: Yes Hx Family Cancer: Yes Hx Family GI Disorders: No Hx Family Endocrine Disorder: Yes Hx Family Neuromuscular Disorders: No Hx Family Neurologic Disorders: No Hx Family HEENT Disorders: No Hx Family Autoimmune Disorders: No Internal Medicine - H&P: Meds Albuterol Sulfate [Albuterol Inhaler] 2 puff IH Q4HR PRN 05/17/15 [History] Ezetimibe [Zetia] 10 mg PO DAILY 05/17/15 [History] Metformin HCl [Glucophage] 1,000 mg PO BID 05/17/15 [History] Tiotropium [Spiriva] 18 mcg IH DAILY 05/17/15 [History] Clopidogrel [Plavix] 75 mg PO DAILY 10/27/17 [History] Lisinopril [Zestril] 2.5 mg PO DAILY PRN 10/27/17 [History] Metoprolol Succinate [Toprol Xl] 25 mg PO DAILY 10/27/17 [History] Lipase/Protease/Amylase [Creon Dr 12,000 Units Capsule] 1 cap PO BIDWM 11/10/17 [History] Cholestyramine 4 g PO BID 01/24/18 [History] Perphenazine [Trilafon] 8 mg PO HS 01/24/18 [History] Tamsulosin [Flomax] 0.4 mg PO DAILY #30 capsule 02/04/18 [Rx] Bacitracin OINT [Ak-Tracin] 1 appl TP BID 30 Days #1 tube 03/23/18 [Rx] Nystatin Cream [Mycostatin Cream] 1 appl TP BID 30 Days #1 tube 03/23/18 [Rx] Aspirin [Lo-Dose Aspirin EC] 81 mg PO DAILY 04/09/18 [History] Furosemide [Lasix] 40 mg PO BID 04/09/18 [History] Lactulose 20 gm PO BID #60 udc 04/14/18 [Rx] 3 Allergy/AdvReac Type Severity Reaction Status Date / Time loxapine [From Loxitane] Allergy See Verified 04/16/18 10:55 Comments betamethasone AdvReac Hives Verified 04/16/18 10:55 [From Lotrisone] clotrimazole [From Lotrisone] AdvReac Hives Verified 04/16/18 10:55 Sulfa (Sulfonamide AdvReac Hives Verified 04/16/18 10:55 Antibiotics) ROS unobtainable: due to mental status All Systems PM: A 10-system review of systems was performed and is negative for pertinent findings except as documented above in the HPI. - Constitutional Vitals: Temp Pulse Resp BP Pulse Ox 97.7 F 96 15 98/80 98 04/29/18 15:45 04/29/18 18:06 04/29/18 18:06 04/29/18 18:06 04/29/18 18:06 Exam: General: Awake, not oriented to time or place. In moderate distress due to shortness of breath. Cardiovascular: RRR, Normal S1 & S2, no rubs, murmurs or gallops. Lungs:Cleared to auscultation bilaterally, minimal expiratory wheezes bilaterally. Abdomen: Distended, Soft, non-tender, no rigidity. Extremities: b/l ulcers anteriorly at the rico. non tender. Neurological: encephalopathic Rest of the physical exam is non contributory Internal Med - H&P Results - Labs CBC & Chem 7: 04/29/18 15:28 04/29/18 15:28 - Assessment and plan (1) Respiratory failure Current Visit: Yes Status: Acute Assessment and plan: Possible secondary to Pneumonia vs heart failure. Plan started on Bipap f/u AM ABG Nebs Qualifiers: Chronicity: acute Respiratory failure complication: hypoxia Qualified Code(s): J96.01 - Acute respiratory failure with hypoxia (2) Sepsis Current Visit: Yes Status: Acute Assessment and plan: Most likley due to Pneumonia Plan Patient given 1 litter of normal saline started on broad spectrum antibiotics Strict intake and output UA Urine and blood culture CT of chest for better visualization of lung parenchyma Discussed with Pulm&critical care recommended ICU placement as patient treshold for resuscitation with IV fluids is low due to severe CHF Qualifiers: Sepsis type: sepsis due to unspecified organism Qualified Code(s): A41.9 - Sepsis, unspecified organism (3) Hypotension Current Visit: Yes Status: Acute Assessment and plan: Possible secondary to sepsis from pneumonia vs severe CHF. Patient being resuscitated with IV fluids will attempt gentle cautious hydration with NS boluses with needed due to patient severe CHF. Qualifiers: Hypotension type: unspecified hypotension type Qualified Code(s): I95.9 - Hypotension, unspecified (4) HCAP (healthcare-associated pneumonia) Current Visit: Yes Status: Acute Assessment and plan: Chest X-ray: IMPRESSION: Bilateral pleural effusions, right larger than left, new since prior exam 04/16/2018. There are also new patchy airspace opacities bilaterally, right worse than left, which may relate to atelectasis, multifocal infiltrates and/or pulmonary edema. Stable cardiomegaly. Plan started on broad spectrum antibiotics. Owens cultured. Sputum culture and gram stain. urine for atypical organism. (5) Altered mental status Current Visit: Yes Status: Acute Assessment and plan: Metabolic, due to sepsis. R/O intracraneal process. Head CT ordered. Qualifiers: Altered mental status type: unspecified Qualified Code(s): R41.82 - Altered mental status, unspecified (6) Cellulitis Current Visit: Yes Status: Acute Assessment and plan: Bilateral lower extr cellulitis. Patient on broad spectrum antibiotics. Qualifiers: Site of cellulitis: extremity Site of cellulitis of extremity: lower extremity Laterality: unspecified laterality Qualified Code(s): L03.119 - Cellulitis of unspecified part of limb (7) Acute on chronic renal failure Current Visit: No Status: Acute Assessment and plan: Possible cardiorenal vs sepsis. Started on gentle IV hydration as patient is hypotensive. Qualifiers: Acute renal failure type: unspecified Chronic kidney disease stage: stage 3 (moderate) Qualified Code(s): N17.9 - Acute kidney failure, unspecified; N18.3 - Chronic kidney disease, stage 3 (moderate) (8) Lactic acidosis Current Visit: No Status: Acute Assessment and plan: Possible due to sepsis vs load preload due to severe CHF. (9) COPD (chronic obstructive pulmonary disease) Current Visit: No Status: Chronic Assessment and plan: plan of care as per problem #1. 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 - Other emphysema (10) DVT prophylaxis Current Visit: No Status: Chronic Assessment and plan: Heparin 5000 units SubQ BID for DVT prophylaxis (11) Diabetes Current Visit: No Status: Chronic Assessment and plan: Accu-checks Q6HRs as patient NPO. started on Lispro sliding scale. Qualifiers: Diabetes mellitus type: type 2 Diabetes mellitus manager terminal insulin use: without residential use Diabetes mellitus complication status: without complication Qualified Code(s): E11.9 - Type 2 diabetes mellitus without complications (12) Obesity Current Visit: No Status: Chronic Qualifiers: Obesity type: due to excess calories Obesity classification: adult class 3 (BMI >= 40) Serious obesity comorbidity presence: without serious comorbidity Body mass index: BMI 40.0-44.9 Qualified Code(s): E66.01 - Morbid (severe) obesity due to excess calories; Z68.41 - Body mass index (BMI) 40.0-44.9, adult (13) CHF (congestive heart failure) Current Visit: No Status: Chronic Assessment and plan: Patient with severe Heart failure. E.F 20%. signs of pulmonary congestion on chest x-ray. Unable to diurese due to hypotension. Will Start on low furosemide 20mg/IV daily with holding parameter for SBP <110 when BP more stable. BNP Started on BiPaP to help preload. Serial trops Qualifiers: Heart failure type: systolic Heart failure chronicity: acute on chronic Qualified Code(s): I50.23 - Acute on chronic systolic (congestive) heart failure - Time Spent With Patient Total time spent is greater than 50% in coordination of care (as documented) at patient's floor/unit and/or counseling patient: Greater than 35 minutes
[2018-04-29] MEDS ORDERED: Levofloxacin 750 MG/150 ML 750 MG/150 ML BAG IVPB SCH (19:00)
[2018-04-29] MEDS ORDERED: Furosemide 20 MG/2 ML VIAL IVP SCH ×2 (21:00)
[2018-04-29 21:49] LABS: ABG Base Excess 2 mEq/L (-2 to 3); ABG HCO3 30 mEq/L (21-27); ABG Oxygen Saturation 95 % (95-98); ABG PCO2 58 mmHg (35-45); ABG PH 7.32 pH Units (7.32-7.45); ABG PO2 84 mmHg (85-104); ABG TCO2 32 mEq/L (20-26); Blood Gas Modality BiLevel; Blood Gas PEEP 6 cm H2O
[2018-04-29 22:16] LABS: Basophils % 0.1 %; Hematocrit 38.9 % (37.5-50.1); Hemoglobin 11.8 g/dL (12.9-16.9); Immature Granulocytes % 0.5 % (0-4); Lymphocytes # 0.7 K/mcL (0.6-4.6); Lymphocytes % 7.7 %; Mean Corpuscular HGB Conc 30.3 g/dL (31.6-35.5); Mean Corpuscular Hemoglobin 30.3 pg (28.0-33.3); Mean Platelet Volume 10.4 fL (9.4-12.4); Monocytes # 1.1 K/mcL (0.0-1.3); Monocytes % 11.2 %; Neutrophils # 7.8 K/mcL (1.6-8.9); Nucleated Red Blood Cells 1.2 /100 WBC (0); Platelet Count 152 K/mcL (140-400); Red Blood Count 3.89 M/mcL (4.19-5.50); Red Cell Distribution Width 18.2 % (11.5-14.5); Segmented Neutrophils % 80.5 %
[2018-04-29 22:22] LABS: INR 1.8; Prothrombin Time 20.2 Seconds (9.4-12.1)
[2018-04-29] MEDS: Insulin LISPRO 300 UNITS/3 ML VIAL SQ SCH ×2 (22:25→23:00)
[2018-04-29 22:38] LABS: Albumin 3.3 g/dL (3.5-5.7); Albumin/Globulin Ratio 1.4 (1.1-2.2); Bilirubin,Direct 0.8 mg/dL (0.0-0.2); Bilirubin,Indirect 0.6 mg/dL (0.0-1.2); Bilirubin,Total 1.4 mg/dL (0.3-1.0); Calcium 8.4 mg/dL (8.6-10.3); Globulin 2.4 g/dL (2.4-3.5); Magnesium 2.3 mg/dL (1.6-2.6); Potassium 4.2 mEq/L (3.5-5.1); Total Protein 5.7 g/dL (6.4-8.9)
[2018-04-30] MEDS ORDERED: Dextrose Gel 15 GM/37.5 ML TUBE PO PRN ×2 (04:14)
[2018-04-30] MEDS ORDERED: Albuterol 2.5 MG/3 ML NEBULIZER IH PRN (04:14)
[2018-04-30] MEDS ORDERED: traMADol 50 MG TABLET PO PRN (04:14)
[2018-04-30] MEDS ORDERED: *HR* Dextrose 50 % in Water (Syg) 50 ML SYRINGE IVP PRN (04:14)
[2018-04-30] MEDS ORDERED: Naloxone 0.4 MG/ML INJ IVP PRN (04:14)
[2018-04-30] MEDS ORDERED: D5% in Water 1,000 ML IVC PRN (04:14)
[2018-04-30 04:21] LABS: Hematocrit 36.7 % (37.5-50.1); Mean Corpuscular Hemoglobin 30.2 pg (28.0-33.3); Mean Corpuscular Volume 100.8 fL (83.0-100.0); Mean Platelet Volume 10.1 fL (9.4-12.4); Platelet Count 134 K/mcL (140-400); Red Blood Count 3.64 M/mcL (4.19-5.50); Red Cell Distribution Width 17.8 % (11.5-14.5)
[2018-04-30 04:40] LABS: Calcium 8.2 mg/dL (8.6-10.3); Magnesium 2.3 mg/dL (1.6-2.6); Phosphorous 5.7 mg/dL (2.7-4.5); Potassium 4.3 mEq/L (3.5-5.1)
[2018-04-30] MEDS: Piperacillin/Tazobactam 3.375 GM in 0.9 % Sodium Chloride Mini Bag 100 ML IVPB SCH ×2 (05:02→17:39)
[2018-04-30] MEDS: *HR* Heparin 5,000 UNIT/ML VIAL SQ SCH ×2 (05:02→17:38)
[2018-04-30] MEDS: Insulin LISPRO 300 UNITS/3 ML VIAL SQ SCH ×4 (05:52→23:39)
[2018-04-30] MEDS ORDERED: Piperacillin/Tazobactam 3.375 GM in 0.9 % Sodium Chloride Mini Bag 100 ML IVPB SCH (06:00)
--- NOTE | 2018-04-30 07:53 | Pulmonology Consult Note ---
<Shaun Magdaleno S - Last Filed: 04/30/18 11:34> Date of Encounter: 04/30/18 Time of Encounter: 07:00 Assessment and Plan (1) Sepsis Current Visit: Yes Status: Acute Likely 2/2 pneumonia (evidence on chest CT) Gave 1L fluid Lactic acid improved 2.5 > 1.4 WBC normal 9.6 > 8.7 Temp 97.1 BP 90/55 Caution with IV fluid resuscitation due to severe heart failure Monitor I&Os Continue IV Levofloxacin, Vancomycin, and Zosyn Blood cultures x2 - no growth to date Qualifiers: Sepsis type: sepsis due to unspecified organism Qualified Code(s): A41.9 - Sepsis, unspecified organism (2) HCAP (healthcare-associated pneumonia) Current Visit: Yes Status: Acute CT (04/29) shows focal consolidation in right upper and middle lobe concerning for pneumonia Patient is afebrile with normal WBC count Patient on IV levofloxacin, zosyn, and vanomycin Patient on BIPAP FIO2 30%, saturating at 94% (3) Respiratory failure Current Visit: Yes Status: Acute May be 2/2 pneumonia vs CHF exacerbation vs COPD exacerbation Patient on BIPAP 30% FiO2, saturating at 94% ABG shows pH 7.32, pCO2 58, HCO3 30 On broad spectrum antibiotics Qualifiers: Chronicity: acute Respiratory failure complication: hypoxia Qualified Code(s): J96.01 - Acute respiratory failure with hypoxia (4) CHF (congestive heart failure) Current Visit: No Status: Chronic Severe heart failure with EF of 20% BNP 2048 CT (04/29) shows bilateral pleural effusions, worse on right Patient on BIPAP FiO2 30%, saturating at 94% On IV lasix 20 mg BID, caution with hypotension Qualifiers: Heart failure type: systolic Heart failure chronicity: acute on chronic Qualified Code(s): I50.23 - Acute on chronic systolic (congestive) heart failure (5) Pulmonary edema Current Visit: Yes Status: Acute CT (04/29) shows mod-large right pleural effusion and small left pleural effusion Patient on IV lasix 20 mg BID, may give an additional dose if patient desaturates Patient saturating at 94% on BIPAP Qualifiers: Chronicity: acute Qualified Code(s): J81.0 - Acute pulmonary edema (6) COPD (chronic obstructive pulmonary disease) Current Visit: No Status: Chronic Patient on BIPAP FiO2 30%, saturating at 94% Continue albuterol nebulizer as needed Continue IV levofloxacin 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 - Other emphysema (7) Altered mental status Current Visit: Yes Status: Acute May be 2/2 sepsis, not sure about patient's baseline Head CT (04/29) showed chronic paranasal sinus disease, but no acute intracranial abnormality Patient still confused this morning No significant electrolyte abnormalities Will continue to monitor Qualifiers: Altered mental status type: unspecified Qualified Code(s): R41.82 - Altered mental status, unspecified (8) Ascites Current Visit: No Status: Acute Abdominal US showed moderate amount of ascites in RUQ Patient on IV lasix 20 mg BID Ammonia is ok at 41 AST and ALT mildly elevated, low 50s Will continue to monitor Qualifiers: Ascites type: other type Qualified Code(s): R18.8 - Other ascites (9) Cellulitis Current Visit: Yes Status: Acute Bilateral lower extremity cellulitis with multiple ulcerations Patient on IV vanc, zosyn, and levaquin WBC normal Afebrile Qualifiers: Site of cellulitis: extremity Site of cellulitis of extremity: lower extremity Laterality: unspecified laterality Qualified Code(s): L03.119 - Cellulitis of unspecified part of limb (10) Acute on chronic renal failure Current Visit: No Status: Acute Patient's Cr 2.31 > 2.39 Caution with hydration as patient has severe HF Continue to monitor Qualifiers: Acute renal failure type: unspecified Chronic kidney disease stage: stage 3 (moderate) Qualified Code(s): N17.9 - Acute kidney failure, unspecified; N18.3 - Chronic kidney disease, stage 3 (moderate) (11) Type II diabetes mellitus Current Visit: No Status: Chronic Patient's recent glucose 128 Continue accuchecks Continue low dose sliding scale insulin Qualifiers: Diabetes mellitus prison insulin use: 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 Diabetes mellitus complication status: with circulatory complication Diabetes mellitus complication detail: with other circulatory complications Qualified Code(s): E11.59 - Type 2 diabetes mellitus with other circulatory complications (12) DVT prophylaxis Current Visit: No Status: Chronic Subcutaneous heparin History of Present Illness Consult date: 04/30/18 Requesting physician: Lavelle Lehman Chief complaint: AMS and weakness History of present illness: 63 year old male with PMHx of severe CHF with EF 20-25%, COPD, DM, HTN, hepatic encephalopathy presented to [place] ED via ambulance with decreased mental status and generalized weakness. The patient was recently discharged from the hospital with hospice. Per the notes, the family was under the impression he would be able to leave the hospital if he agreed to Hospice, but they didn't realize he wouldn't be receiving further therapeutic medical treatment. Per the notes, they state the patient wishes to be treated and live as long as possible. Patient's pulse ox was 78% when EMS arrived, he was not wearing his home O2. He was admitted to the ICU for respiratory failure and sepsis. In ICU, patient is awake but not oriented. He believes he is at home. He did recall he has diabetes. He is complaining of some back pain, but we had a difficult time conversing with him. He is resting well on 4L nasal cannula. Past Med Surg Social Fam HX - Past Medical History Medical history: cancer, cardiomyopathy, COPD, coronary artery disease, diabetes , hyperlipidemia, hypertension, myocardial infarction, other Additional medical history: pancreatitis. short-term memory problems Psychiatric history: no psych history - Past Surgical History Surgical History: angioplasty/stent, cataract, herniorrhaphy, other Additional surgical history: x3 stents - Social History Smoking Status: Current every day smoker Packs per day: 1.5 Smokeless Tobacco Status: No Alcohol use: none Drug use: none - Family History Father History Unknown: Yes Adopted: No Living Status: Hx Family Cardiac Disorders: No Hx Family Respiratory Disorders: Yes Hx Family Cancer: Yes Hx Family GI Disorders: No Hx Family Endocrine Disorder: No Hx Family Neuromuscular Disorders: No Hx Family Neurologic Disorders: No Hx Family HEENT Disorders: No Hx Family Autoimmune Disorders: No Mother History Unknown: Yes Adopted: No Family Member Ethnicity: Non- Living Status: Hx Family Cardiac Disorders: No Hx Family Respiratory Disorders: Yes Hx Family Cancer: Yes Hx Family GI Disorders: No Hx Family Endocrine Disorder: Yes Hx Family Neuromuscular Disorders: No Hx Family Neurologic Disorders: No Hx Family HEENT Disorders: No Hx Family Autoimmune Disorders: No Medications and Allergies Albuterol Sulfate [Albuterol Inhaler] 2 puff IH Q4HR PRN 05/17/15 [History] Ezetimibe [Zetia] 10 mg PO DAILY 05/17/15 [History] Metformin HCl [Glucophage] 1,000 mg PO BID 05/17/15 [History] Tiotropium [Spiriva] 18 mcg IH DAILY 05/17/15 [History] Clopidogrel [Plavix] 75 mg PO DAILY 10/27/17 [History] Lisinopril [Zestril] 2.5 mg PO DAILY PRN 10/27/17 [History] Metoprolol Succinate [Toprol Xl] 25 mg PO DAILY 10/27/17 [History] Lipase/Protease/Amylase [Creon Dr 12,000 Units Capsule] 1 cap PO BIDWM 11/10/17 [History] Cholestyramine 4 g PO BID 01/24/18 [History] Perphenazine [Trilafon] 8 mg PO HS 01/24/18 [History] Tamsulosin [Flomax] 0.4 mg PO DAILY #30 capsule 02/04/18 [Rx] Bacitracin OINT [Ak-Tracin] 1 appl TP BID 30 Days #1 tube 03/23/18 [Rx] Nystatin Cream [Mycostatin Cream] 1 appl TP BID 30 Days #1 tube 03/23/18 [Rx] Aspirin [Lo-Dose Aspirin EC] 81 mg PO DAILY 04/09/18 [History] Furosemide [Lasix] 40 mg PO BID 04/09/18 [History] Lactulose 20 gm PO BID #60 udc 04/14/18 [Rx] 3 Allergy/AdvReac Type Severity Reaction Status Date / Time loxapine [From Loxitane] Allergy See Verified 04/16/18 10:55 Comments betamethasone AdvReac Hives Verified 04/16/18 10:55 [From Lotrisone] clotrimazole [From Lotrisone] AdvReac Hives Verified 04/16/18 10:55 Sulfa (Sulfonamide AdvReac Hives Verified 04/16/18 10:55 Antibiotics) All Systems: The remainder of the systems were reviewed and are negative Physical Examination Vital Signs: Vital Signs, Last 4 Hours Temp Pulse Resp BP Pulse Ox 04/30/18 06:51 97.7 F 04/30/18 06:00 78 18 90/62 96 04/30/18 05:00 81 22 88/62 96 04/30/18 04:00 77 18 107/63 98 04/30/18 03:36 14 94/68 94 General appearance: lethargic Eyes: nonicteric Effort: mildly labored Auscultation: bilateral: diminished breath sounds, wheezes Cardiovascular: regular rate and rhythm Gastrointestinal: soft, non-tender, other (distended) Extremities: other (multiple bilateral skin ulcers on LE that are wrapped) other (confused) affect normal Results - Laboratory Findings CBC and BMP: 04/30/18 04:07 04/30/18 04:07 ABG ABG pH 7.32 pH Units (7.32-7.45) 04/29/18 21:47 ABG pCO2 58 mmHg (35-45) H 04/29/18 21:47 ABG pO2 84 mmHg (85-104) L 04/29/18 21:47 ABG O2 Saturation 95 % (95-98) 04/29/18 21:47 PT/INR, D-dimer PT 20.2 Seconds (9.4-12.1) H 04/29/18 22:03 Abnormal lab findings: Abnormal lab results RBC 3.64 M/mcL (4.19-5.50) L 04/30/18 04:07 Hgb 11.0 g/dL (12.9-16.9) L 04/30/18 04:07 Hct 36.7 % (37.5-50.1) L 04/30/18 04:07 MCV 100.8 fL (83.0-100.0) H 04/30/18 04:07 MCHC 30.0 g/dL (31.6-35.5) L 04/30/18 04:07 RDW 17.8 % (11.5-14.5) H 04/30/18 04:07 Plt Count 134 K/mcL (140-400) L 04/30/18 04:07 Nucleated RBCs/100 WBC 1.2 /100 WBC (0) H 04/29/18 22:03 PT 20.2 Seconds (9.4-12.1) H 04/29/18 22:03 ABG pCO2 58 mmHg (35-45) H 04/29/18 21:47 ABG pO2 84 mmHg (85-104) L 04/29/18 21:47 ABG HCO3 30 mEq/L (21-27) H 04/29/18 21:47 ABG Total CO2 32 mEq/L (20-26) H 04/29/18 21:47 VBG pH 7.31 pH Units (7.32-7.42) L 04/29/18 15:43 VBG pCO2 54 mmHg (41-51) H 04/29/18 15:43 VBG pO2 155 mmHg (25-50) H 04/29/18 15:43 VBG HCO3 28 mEq/L (21-27) H 04/29/18 15:43 Carbon Dioxide 32 mEq/L (23-29) H 04/30/18 04:07 BUN 74 mg/dL (8-23) H 04/30/18 04:07 Creatinine 2.39 mg/dL (0.70-1.30) H 04/30/18 04:07 Est GFR ( Amer) 33 (> 60) L 04/30/18 04:07 Est GFR (Non-Af Amer) 27 (> 60) L 04/30/18 04:07 BUN/Creatinine Ratio 31 (6-26) H 04/30/18 04:07 Glucose 128 mg/dL (70-105) H 04/30/18 04:07 POC Glucose 146 mg/dL (70-99) H 04/29/18 22:57 Calculated Osmolality 310 (280-300) H 04/30/18 04:07 Calcium 8.2 mg/dL (8.6-10.3) L 04/30/18 04:07 Phosphorus 5.7 mg/dL (2.7-4.5) H 04/30/18 04:07 Total Bilirubin 1.4 mg/dL (0.3-1.0) H 04/29/18 22:03 Direct Bilirubin 0.8 mg/dL (0.0-0.2) H 04/29/18 22:03 AST 49 Units/L (13-39) H 04/29/18 22:03 ALT 54 Units/L (7-52) H 04/29/18 22:03 Troponin I 0.10 ng/mL (< 0.04) H* 04/29/18 19:44 C-Reactive Protein 10 mg/L (Less than 10) H 04/29/18 18:03 B-Natriuretic Peptide 2049 pg/mL (Less than 100) H 04/29/18 15:28 Serum Total Protein 5.7 g/dL (6.4-8.9) L 04/29/18 22:03 Albumin 3.3 g/dL (3.5-5.7) L 04/29/18 22:03 Urine Clarity Cloudy (Clear) A 04/29/18 16:05 Ur Specific [place] 1.008 (1.010-1.025) L 04/29/18 16:05 Urine Protein 30 mg/dL (Neg-Trace) H 04/29/18 16:05 Ur Leukocyte Esterase Trace (Negative) H 04/29/18 16:05 Urine Microscopic WBC 5-15 per hpf (0-3) H 04/29/18 16:05 Ur Squamous Epith Cells Many per lpf (None-Few) H 04/29/18 16:05 Ur Culture Indicated? NO. (NO) A 04/29/18 16:05 - Clinical Findings Intake & Output: Intake & Output 04/29/18 04/29/18 04/30/18 15:59 23:59 07:59 Intake Total 1600 / 1600 150 / 150 Output Total 1225 / 1225 1225 / 1225 Balance 375 / 375 -1075 / -1075 Weight 122.9 kg 122.9 kg Consult Discharge Plan - Plan Referrals: Zackary Hale MD [Primary Care Provider] - <Lavelle Lehman S - Last Filed: 04/30/18 16:47> Date of Encounter: 04/30/18 All Systems: The remainder of the systems were reviewed and are negative Physical Examination Vital Signs: Vital Signs, Last 4 Hours Temp Pulse Resp BP Pulse Ox 04/30/18 16:13 98.0 F 04/30/18 14:15 83 19 97/68 97 04/30/18 13:15 68 18 94/69 96 Results - Laboratory Findings CBC and BMP: 04/30/18 04:07 04/30/18 04:07 ABG ABG pH 7.32 pH Units (7.32-7.45) 04/29/18 21:47 ABG pCO2 58 mmHg (35-45) H 04/29/18 21:47 ABG pO2 84 mmHg (85-104) L 04/29/18 21:47 ABG O2 Saturation 95 % (95-98) 04/29/18 21:47 PT/INR, D-dimer PT 20.2 Seconds (9.4-12.1) H 04/29/18 22:03 Abnormal lab findings: Abnormal lab results RBC 3.64 M/mcL (4.19-5.50) L 04/30/18 04:07 Hgb 11.0 g/dL (12.9-16.9) L 04/30/18 04:07 Hct 36.7 % (37.5-50.1) L 04/30/18 04:07 MCV 100.8 fL (83.0-100.0) H 04/30/18 04:07 MCHC 30.0 g/dL (31.6-35.5) L 04/30/18 04:07 RDW 17.8 % (11.5-14.5) H 04/30/18 04:07 Plt Count 134 K/mcL (140-400) L 04/30/18 04:07 Nucleated RBCs/100 WBC 1.2 /100 WBC (0) H 04/29/18 22:03 PT 20.2 Seconds (9.4-12.1) H 04/29/18 22:03 ABG pCO2 58 mmHg (35-45) H 04/29/18 21:47 ABG pO2 84 mmHg (85-104) L 04/29/18 21:47 ABG HCO3 30 mEq/L (21-27) H 04/29/18 21:47 ABG Total CO2 32 mEq/L (20-26) H 04/29/18 21:47 VBG pH 7.31 pH Units (7.32-7.42) L 04/29/18 15:43 VBG pCO2 54 mmHg (41-51) H 04/29/18 15:43 VBG pO2 155 mmHg (25-50) H 04/29/18 15:43 VBG HCO3 28 mEq/L (21-27) H 04/29/18 15:43 Carbon Dioxide 32 mEq/L (23-29) H 04/30/18 04:07 BUN 74 mg/dL (8-23) H 04/30/18 04:07 Creatinine 2.39 mg/dL (0.70-1.30) H 04/30/18 04:07 Est GFR ( Amer) 33 (> 60) L 04/30/18 04:07 Est GFR (Non-Af Amer) 27 (> 60) L 04/30/18 04:07 BUN/Creatinine Ratio 31 (6-26) H 04/30/18 04:07 Glucose 128 mg/dL (70-105) H 04/30/18 04:07 POC Glucose 146 mg/dL (70-99) H 04/29/18 22:57 Calculated Osmolality 310 (280-300) H 04/30/18 04:07 Calcium 8.2 mg/dL (8.6-10.3) L 04/30/18 04:07 Phosphorus 5.7 mg/dL (2.7-4.5) H 04/30/18 04:07 Total Bilirubin 1.4 mg/dL (0.3-1.0) H 04/29/18 22:03 Direct Bilirubin 0.8 mg/dL (0.0-0.2) H 04/29/18 22:03 AST 49 Units/L (13-39) H 04/29/18 22:03 ALT 54 Units/L (7-52) H 04/29/18 22:03 Troponin I 0.10 ng/mL (< 0.04) H* 04/29/18 19:44 C-Reactive Protein 10 mg/L (Less than 10) H 04/29/18 18:03 B-Natriuretic Peptide 2049 pg/mL (Less than 100) H 04/29/18 15:28 Serum Total Protein 5.7 g/dL (6.4-8.9) L 04/29/18 22:03 Albumin 3.3 g/dL (3.5-5.7) L 04/29/18 22:03 Urine Clarity Cloudy (Clear) A 04/29/18 16: Ur Specific [place] 1.008 (1.010-1.025) L 04/29/18 16:05 Urine Protein 30 mg/dL (Neg-Trace) H 04/29/18 16:05 Ur Leukocyte Esterase Trace (Negative) H 04/29/18 16:05 Urine Microscopic WBC 5-15 per hpf (0-3) H 04/29/18 16:05 Ur Squamous Epith Cells Many per lpf (None-Few) H 04/29/18 16:05 Ur Culture Indicated? NO. (NO) A 04/29/18 16:05 - Clinical Findings Intake & Output: Intake & Output 10/01/1004/30/18 04/30/18 07:59 15:59 23:59 Intake Total 150 / 150 100 / 100 Output Total 1225 / 1225 550 / 550 900 / 900 Balance -1075 / -1075 -450 / -450 -900 / -900 Weight 122.9 kg - Attending Attestation I saw and evaluated this patient and my medical decision-making was reviewed with the Resident Physician. I agree with the documented findings, disposition and treatment plan as described except to the extent set forth below. We independently had [id number] contact with the patient I spent 35 minutes of Critical Care time with this patient. It involved decision making of high complexity to assess, manipulate, and support vital organ system failure and/or to prevent further life threatening deterioration of the patient's condition. Patient seen and examined at bedside Labs, radiology, chart personally reviewed. Management was reviewed during multidisciplinary critical care rounds. 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 Pulm: Patient V/Q mismatch is contributed by worsening right-sided pleural effusion due to acute on chronic systolic heart failure, complicated by possible pneumonia. Patient can have breaks of BiPAP but he needs to go up on BiPAP during naps and during sleeping. His BiPAP will decrease his afterload and preload and help his cardiovascular hemodynamics.. Since patient is stable in regards to V/Q mismatch will hold off thoracentesis today we will attempt tomorrow if the V/Q mismatch is worsening . Cards: Has acute on chronic systolic heart failure with AICD will do gentle diuresis as tolerated. FEN-GI: Clear liquid diet since patient is on intermittent BiPAP ultrasound aside this showed a pocket of fluid around the right upper quadrant. Renal: Labs and output reviewed ID: Blood cultures to cover with broad-spectrum antibiotics for cellulitis and pneumonia. Heme/Onc: Thromboprophylaxis Endo: Glucose Monitored Integ/MSK: Skin Care per routine ICU Nursing Protocol to prevent ulcers. Lines: All lines examined without evidence of infection : Dispo: To remain in the ICU CODE: Full Code
[2018-04-30] MEDS: Furosemide 20 MG/2 ML VIAL IVP SCH ×2 (08:39→17:38)
[2018-04-30] MEDS ORDERED: Vancomycin (wt based) 1,000 MG VIAL IVPB SCH (09:00)
[2018-05-01 04:35] LABS: Basophils % 0.1 %; Eosinophils # 0.1 K/mcL (0.0-0.6); Eosinophils % 0.9 %; Hematocrit 38.2 % (37.5-50.1); Hemoglobin 11.6 g/dL (12.9-16.9); Immature Granulocytes % 0.2 % (0-4); Lymphocytes # 0.7 K/mcL (0.6-4.6); Lymphocytes % 8.3 %; Mean Corpuscular HGB Conc 30.4 g/dL (31.6-35.5); Mean Corpuscular Hemoglobin 30.5 pg (28.0-33.3); Mean Corpuscular Volume 100.5 fL (83.0-100.0); Mean Platelet Volume 10.2 fL (9.4-12.4); Monocytes # 0.8 K/mcL (0.0-1.3); Monocytes % 9.8 %; Neutrophils # 6.5 K/mcL (1.6-8.9); Nucleated Red Blood Cells 0.2 /100 WBC (0); Platelet Count 103 K/mcL (140-400); Red Cell Distribution Width 17.8 % (11.5-14.5); Segmented Neutrophils % 80.7 %
[2018-05-01 04:51] LABS: Calcium 8.2 mg/dL (8.6-10.3)
[2018-05-01] MEDS: Piperacillin/Tazobactam 3.375 GM in 0.9 % Sodium Chloride Mini Bag 100 ML IVPB SCH ×3 (04:57→23:03)
[2018-05-01] MEDS: *HR* Heparin 5,000 UNIT/ML VIAL SQ SCH ×2 (04:57→17:01)
[2018-05-01] MEDS: Insulin LISPRO 300 UNITS/3 ML VIAL SQ SCH ×4 (05:45→23:08)
--- NOTE | 2018-05-01 07:30 | Pulmonology Progress Note ---
<Eros Herrera R - Last Filed: 05/01/18 16:00> Date of Encounter: 05/01/18 Time of Encounter: 07:55 Assessment and Plan (1) Sepsis Current Visit: Yes Status: Acute Likely secondary to to right-sided pneumonia is visualized on chest CT. Strep pneumonia antigen negative. Legionella antibody pending. Blood cultures negative growth to date. Normalized leukocytosis, afebrile, lactate now within normal limits. Conservative with fluid resuscitation due to severe heart failure Patient is on day 3 of broad-spectrum antibiotics with Levaquin, Zosyn, and vancomycin. will plan to de-escalate as appropriate Qualifiers: Sepsis type: sepsis due to unspecified organism Qualified Code(s): A41.9 - Sepsis, unspecified organism (2) HCAP (healthcare-associated pneumonia) Current Visit: Yes Status: Acute CT chest does demonstrate infiltrate in the right upper and middle lobes concerning for pneumonia. Leukocytosis has normalized, patient is afebrile, lactate normalized On day 3 of broad-spectrum antibiotic coverage with Levaquin, Zosyn, vancomycin. We will de-escalate antibiotics as appropriate. (3) Advance care planning Current Visit: Yes Status: Acute Patient and did meet with palliative care and last admission at the end of March 2018. At that time patient was made DNRCC-arrest/DNI and was discharged home with hospice referral. On 04/29 Patient began feeling sick with progressive shortness of breath which was concerning for the family. Patient and family were unclear that while on hospice he would not undergo further treatment and would continue to worsen clinically. They have stated that they do not want hospice care. Patient was again made full code upon this admission. I have spoken with the patient's , the patient is awake and arousable however he remains quite confused and is unable to carry out appropriate conversation. After extensive discussion, her understanding of the patient's condition and prognosis is limited. She would like to keep the patient full code at this time, however she is open to the idea of DNRCC and we will plan to discuss further tomorrow. We will consider again involving palliative care for further end-of-life and hospice counseling. Patient does have significant comorbidities and prognosis overall is poor (4) Respiratory failure Current Visit: Yes Status: Acute Respiratory failure with hypoxia and hypercapnia in the setting of severe systolic heart failure and health care associated pneumonia. Currently saturating in the high 90s on 4 L by nasal cannula. Will likely require BiPAP while sleeping and resting, this will help optimize his afterload and preload hemodynamics associated with his heart failure. Qualifiers: Chronicity: acute Respiratory failure complication: hypoxia Qualified Code(s): J96.01 - Acute respiratory failure with hypoxia (5) Altered mental status Current Visit: Yes Status: Acute Spoke with patient's today. She reports that patient is not at his baseline, he is very confused today, she states this is not normal. Head CT on 04/29 did not reveal acute intracranial abnormality No significant metabolic abnormalities present We will continue treatment of pneumonia and comorbidities which may be contributing to his altered mental status Repeat ammonia in the a.m. Qualifiers: Altered mental status type: unspecified Qualified Code(s): R41.82 - Altered mental status, unspecified (6) Pleural effusion, right Current Visit: Yes Status: Acute Moderate to large right-sided pleural effusion and small left-sided pleural effusions present on CT chest evaluation. Patient is diuresing well on 20 mg furosemide twice a day. We will continue and monitor renal and electrolyte status. Patient respiratory status is improved today, tolerating for 4L NC. We will consider thoracentesis if indicated for symptom relief. (7) COPD (chronic obstructive pulmonary disease) Current Visit: No Status: Chronic Saturating well on 4L NC Nebulizer albuterol available when necessary 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 - Other emphysema (8) Acute on chronic renal failure Current Visit: No Status: Acute RANDA at admission with serum creatinine of 2.31> 2.39> 2.23. Creatinine is stable. We will continue to monitor especially in the setting of gentle diuresis. Will use caution with regard to fluid resuscitation due to patient's severe heart failure Qualifiers: Acute renal failure type: unspecified Chronic kidney disease stage: stage 3 (moderate) Qualified Code(s): N17.9 - Acute kidney failure, unspecified; N18.3 - Chronic kidney disease, stage 3 (moderate) (9) Cellulitis Current Visit: Yes Status: Acute Erythema of the bilateral lower extremities consistent with cellulitis, multiple ulcerations present with dressings in place during evaluation. Patient is on broad-spectrum antibiotic coverage with IV Levaquin, Zosyn, vancomycin. We will de-escalate antibiotic coverage is appropriate Qualifiers: Site of cellulitis: extremity Site of cellulitis of extremity: lower extremity Laterality: unspecified laterality Qualified Code(s): L03.119 - Cellulitis of unspecified part of limb (10) Type II diabetes mellitus Current Visit: No Status: Chronic Low-dose corrective sliding scale Follow for adequate glycemic control, will adjust as necessary. 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 Tolerating BiPAP while sleeping. Objective PUL Vital signs: Last Vital Signs Temp 97.1 F L 05/01/18 03:00 Pulse 77 05/01/18 05:55 Resp 24 05/01/18 05:55 BP 97/67 05/01/18 05:55 Pulse Ox 98 05/01/18 05:55 General appearance: no acute distress Eyes: nonicteric ENT: oropharynx moist, other (BiPAP in place) Neck: supple Effort: mildly labored (On BiPAP) Auscultation: bilateral: diminished breath sounds, rales (Worse on the right) Cardiovascular: regular rate and rhythm Gastrointestinal: normoactive bowel sounds, soft, non-distended Integumentary: normal Extremities: no cyanosis, pink and warm, edema, other (Lower extremity ulcers with dressing in place.) Musculoskeletal: no deformities Gait: normal posture non-focal exam, other (Confusion, patient believes he is at his home) mood appropriate Results - Laboratory Findings CBC and BMP: 05/01/18 04:18 05/01/18 04:18 ABG ABG pH 7.32 pH Units (7.32-7.45) 04/29/18 21:47 ABG pCO2 58 mmHg (35-45) H 04/29/18 21:47 ABG pO2 84 mmHg (85-104) L 04/29/18 21:47 ABG O2 Saturation 95 % (95-98) 04/29/18 21:47 PT/INR, D-dimer PT 20.2 Seconds (9.4-12.1) H 04/29/18 22:03 Abnormal lab findings: Abnormal lab results RBC 3.80 M/mcL (4.19-5.50) L 05/01/18 04:18 Hgb 11.6 g/dL (12.9-16.9) L 05/01/18 04:18 MCV 100.5 fL (83.0-100.0) H 05/01/18 04:18 MCHC 30.4 g/dL (31.6-35.5) L 05/01/18 04:18 RDW 17.8 % (11.5-14.5) H 05/01/18 04:18 Plt Count 103 K/mcL (140-400) L 05/01/18 04:18 Nucleated RBCs/100 WBC 0.2 /100 WBC (0) H 05/01/18 04:18 PT 20.2 Seconds (9.4-12.1) H 04/29/18 22:03 ABG pCO2 58 mmHg (35-45) H 04/29/18 21:47 ABG pO2 84 mmHg (85-104) L 04/29/18 21:47 ABG HCO3 30 mEq/L (21-27) H 04/29/18 21:47 ABG Total CO2 32 mEq/L (20-26) H 04/29/18 21:47 VBG pH 7.31 pH Units (7.32-7.42) L 04/29/18 15:43 VBG pCO2 54 mmHg (41-51) H 04/29/18 15:43 VBG pO2 155 mmHg (25-50) H 04/29/18 15:43 VBG HCO3 28 mEq/L (21-27) H 04/29/18 15:43 Carbon Dioxide 32 mEq/L (23-29) H 05/01/18 04:18 BUN 65 mg/dL (8-23) H 05/01/18 04:18 Creatinine 2.23 mg/dL (0.70-1.30) H 05/01/18 04:18 Est GFR ( Amer) 36 (> 60) L 05/01/18 04:18 Est GFR (Non-Af Amer) 30 (> 60) L 05/01/18 04:18 BUN/Creatinine Ratio 29 (6-26) H 05/01/18 04:18 Calculated Osmolality 306 (280-300) H 05/01/18 04:18 Calcium 8.2 mg/dL (8.6-10.3) L 05/01/18 04:18 Phosphorus 5.7 mg/dL (2.7-4.5) H 04/30/18 04:07 Total Bilirubin 1.4 mg/dL (0.3-1.0) H 04/29/18 22:03 Direct Bilirubin 0.8 mg/dL (0.0-0.2) H 04/29/18 22:03 AST 49 Units/L (13-39) H 04/29/18 22:03 ALT 54 Units/L (7-52) H 04/29/18 22:03 Troponin I 0.10 ng/mL (< 0.04) H* 04/29/18 19:44 C-Reactive Protein 10 mg/L (Less than 10) H 04/29/18 18:03 B-Natriuretic Peptide 2049 pg/mL (Less than 100) H 04/29/18 15:28 Serum Total Protein 5.7 g/dL (6.4-8.9) L 04/29/18 22:03 Albumin 3.3 g/dL (3.5-5.7) L 04/29/18 22:03 Urine Clarity Cloudy (Clear) A 04/29/18 16:05 Ur Specific [place] 1.008 (1.010-1.025) L 04/29/18 16:05 Urine Protein 30 mg/dL (Neg-Trace) H 04/29/18 16:05 Ur Leukocyte Esterase Trace (Negative) H 04/29/18 16:05 Urine Microscopic WBC 5-15 per hpf (0-3) H 04/29/18 16:05 Ur Squamous Epith Cells Many per lpf (None-Few) H 04/29/18 16:05 Ur Culture Indicated? NO. (NO) A 04/29/18 16:05 - Clinical Findings Intake & Output: Intake & Output 04/30/18 04/30/18 05/01/18 15:59 23:59 07:59 Intake Total 100 / 100 600 / 600 Output Total 550 / 550 2450 / 2450 850 / 850 Balance -450 / -450 -1850 / -1850 -850 / -850 Weight 122.8 kg Consult Discharge Plan - [facility] [place] [facility] Provider[facility] - <Lavelle Lehman S - Last Filed: 05/01/18 21:25> Date of Encounter: 05/01/18 Objective PUL Vital signs: Last Vital Signs Temp 98.5 F 05/01/18 15:24 Pulse 97 05/01/18 13:40 Resp 20 05/01/18 13:40 BP 90/63 05/01/18 13:40 Pulse Ox 96 05/01/18 13:40 Results - Laboratory Findings CBC and BMP: 05/01/18 04:18 05/01/18 04:18 ABG ABG pH 7.32 pH Units (7.32-7.45) 04/29/18 21:47 ABG pCO2 58 mmHg (35-45) H 04/29/18 21:47 ABG pO2 84 mmHg (85-104) L 04/29/18 21:47 ABG O2 Saturation 95 % (95-98) 04/29/18 21:47 PT/INR, D-dimer PT 20.2 Seconds (9.4-12.1) H 04/29/18 22:03 Abnormal lab findings: Abnormal lab results RBC 3.80 M/mcL (4.19-5.50) L 05/01/18 04:18 Hgb 11.6 g/dL (12.9-16.9) L 05/01/18 04:18 MCV 100.5 fL (83.0-100.0) H 05/01/18 04:18 MCHC 30.4 g/dL (31.6-35.5) L 05/01/18 04:18 RDW 17.8 % (11.5-14.5) H 05/01/18 04:18 Plt Count 103 K/mcL (140-400) L 05/01/18 04:18 Nucleated RBCs/100 WBC 0.2 /100 WBC (0) H 05/01/18 04:18 PT 20.2 Seconds (9.4-12.1) H 04/29/18 22:03 ABG pCO2 58 mmHg (35-45) H 04/29/18 21:47 ABG pO2 84 mmHg (85-104) L 04/29/18 21:47 ABG HCO3 30 mEq/L (21-27) H 04/29/18 21:47 ABG Total CO2 32 mEq/L (20-26) H 04/29/18 21:47 VBG pH 7.31 pH Units (7.32-7.42) L 04/29/18 15:43 VBG pCO2 54 mmHg (41-51) H 04/29/18 15:43 VBG pO2 155 mmHg (25-50) H 04/29/18 15:43 VBG HCO3 28 mEq/L (21-27) H 04/29/18 15:43 Carbon Dioxide 32 mEq/L (23-29) H 05/01/18 04:18 BUN 65 mg/dL (8-23) H 05/01/18 04:18 Creatinine 2.23 mg/dL (0.70-1.30) H 05/01/18 04:18 Est GFR ( Amer) 36 (> 60) L 05/01/18 04:18 Est GFR (Non-Af Amer) 30 (> 60) L 05/01/18 04:18 BUN/Creatinine Ratio 29 (6-26) H 05/01/18 04:18 Calculated Osmolality 306 (280-300) H 05/01/18 04:18 Calcium 8.2 mg/dL (8.6-10.3) L 05/01/18 04:18 Phosphorus 5.7 mg/dL (2.7-4.5) H 04/30/18 04:07 Total Bilirubin 1.4 mg/dL (0.3-1.0) H 04/29/18 22:03 Direct Bilirubin 0.8 mg/dL (0.0-0.2) H 04/29/18 22:03 AST 49 Units/L (13-39) H 04/29/18 22:03 ALT 54 Units/L (7-52) H 04/29/18 22:03 Troponin I 0.07 ng/mL (< 0.04) H* 05/01/18 04:18 C-Reactive Protein 10 mg/L (Less than 10) H 04/29/18 18:03 B-Natriuretic Peptide 2049 pg/mL (Less than 100) H 04/29/18 15:28 Serum Total Protein 5.7 g/dL (6.4-8.9) L 04/29/18 22:03 Albumin 3.3 g/dL (3.5-5.7) L 04/29/18 22:03 Urine Clarity Cloudy (Clear) A 04/29/18 16:05 Ur Specific [place] 1.008 (1.010-1.025) L 04/29/18 16:05 Urine Protein 30 mg/dL (Neg-Trace) H 04/29/18 16:05 Ur Leukocyte Esterase Trace (Negative) H 04/29/18 16:05 Urine Microscopic WBC 5-15 per hpf (0-3) H 04/29/18 16:05 Ur Squamous Epith Cells Many per lpf (None-Few) H 04/29/18 16:05 Ur Culture Indicated? NO. (NO) A 04/29/18 16:05 - Clinical Findings Intake & Output: Intake & Output 04/30/18 05/01/18 05/01/18 23:59 07:59 15:59 Intake Total 600 / 600 Output Total 2450 / 2450 900 / 900 2600 / 2600 Balance -1850 / -1850 -900 / -900 -2600 / -2600 Weight 122.8 kg - Attending Attestation I saw and evaluated this patient and my medical decision-making was reviewed with the Resident Physician. I agree with the documented findings, disposition and treatment plan as described except to the extent set forth below. We independently had [id number] contact with the patient Patient seen and examined at bedside Labs, radiology, chart personally reviewed. Management was reviewed during multidisciplinary critical care rounds. DIRECTOR SCRIPT: Patient has arousable but was liberated lethargic on BiPAP had a rough night most of the night he was awake looks like is resting now has altered day and night sleep pattern . We will is contributed by toxic/metabolic encephalopathy due to underlying pneumonia/cellulitis and being in the ICU. Pulm: Patient has acceptable oxygenation and ventilation and is V/Q mismatch is stable complicated by systolic heart failure, pneumonia, bilateral pleural effusion worse on the right side. Patient will need thoracentesis if this diuresis, is not helping as we cannot do aggressive diuresis because of the borderline blood pressure . To continue BiPAP when he sleeps when he is off BiPAP is tolerating at 3 L nasal cannula with stable oxygenation. Cards: Patient has acute on chronic severe systolic heart failure, complicated by sepsis outpatient atrial fibrillation with RVR. To replace electrolytes symptoms as needed FEN-GI: When he is off BiPAP to do a swallow eval and we can advance diet as tolerated Renal: Acute on chronic kidney injury slowly improving with gentle diuresis most likely due to cardiorenal syndrome. ID: To the broad-spectrum antibiotics for cellulitis and pneumonia. Heme/Onc: Continue thromboprophylaxis. Endo: Glucose Monitored Integ/MSK: Skin Care per routine ICU Nursing Protocol to prevent ulcers. Lines: All lines examined without evidence of infection : Dispo: Patient can be ransferred to 2 N. CODE: Full Code
[2018-05-01] MEDS ORDERED: Aminoglycoside Consult 1 EACH MC ONE (07:59)
[2018-05-01 08:19] LABS: Troponin I 0.07 ng/mL (< 0.04)
[2018-05-01] MEDS: Furosemide 20 MG/2 ML VIAL IVP SCH ×2 (09:51→17:01)
[2018-05-01] MEDS ORDERED: Levofloxacin 750 MG/150 ML 750 MG/150 ML BAG IVPB SCH (19:00)
[2018-05-01] MEDS ORDERED: Melatonin 3 MG TABLET PO PRN (20:32)
[2018-05-02 03:48] LABS: Eosinophils % 0.6 %; Hematocrit 38.8 % (37.5-50.1); Hemoglobin 11.6 g/dL (12.9-16.9); Immature Granulocytes % 0.4 % (0-4); Immature Platelets 3.7 % (1.1-6.1); Lymphocytes # 0.7 K/mcL (0.6-4.6); Lymphocytes % 9.5 %; Mean Corpuscular HGB Conc 29.9 g/dL (31.6-35.5); Mean Corpuscular Hemoglobin 30.1 pg (28.0-33.3); Mean Corpuscular Volume 100.8 fL (83.0-100.0); Monocytes # 0.7 K/mcL (0.0-1.3); Monocytes % 9.6 %; Neutrophils # 5.6 K/mcL (1.6-8.9); Red Blood Count 3.85 M/mcL (4.19-5.50); Red Cell Distribution Width 17.9 % (11.5-14.5); Segmented Neutrophils % 79.9 %
[2018-05-02 03:50] LABS: Platelet Count 98 K/mcL (140-400)
[2018-05-02 04:08] LABS: Calcium 8.2 mg/dL (8.6-10.3); Magnesium 1.9 mg/dL (1.6-2.6); Phosphorous 4.5 mg/dL (2.7-4.5); Potassium 3.7 mEq/L (3.5-5.1)
[2018-05-02] MEDS: Insulin LISPRO 300 UNITS/3 ML VIAL SQ SCH ×2 (04:09→20:26)
[2018-05-02 04:10] LABS: Albumin/Globulin Ratio 1.4 (1.1-2.2); Bilirubin,Indirect 0.6 mg/dL (0.0-1.2); Bilirubin,Total 1.6 mg/dL (0.3-1.0); Globulin 2.1 g/dL (2.4-3.5); Total Protein 5.1 g/dL (6.4-8.9)
[2018-05-02] MEDS: *HR* Heparin 5,000 UNIT/ML VIAL SQ SCH ×2 (05:07→18:42)
--- NOTE | 2018-05-02 07:18 | Pulmonology Progress Note ---
<RuyAlberts W - Last Filed: 05/02/18 08:39> Date of Encounter: 05/02/18 Objective PUL Vital signs: Last Vital Signs Temp 97.8 F 05/02/18 03:03 Pulse 77 05/02/18 06:00 Resp 13 05/02/18 06:00 BP 87/58 05/02/18 06:00 Pulse Ox 96 05/02/18 06:00 Results - Laboratory Findings CBC and BMP: 05/02/18 03:34 05/02/18 03:34 ABG ABG pH 7.32 pH Units (7.32-7.45) 04/29/18 21:47 ABG pCO2 58 mmHg (35-45) H 04/29/18 21:47 ABG pO2 84 mmHg (85-104) L 04/29/18 21:47 ABG O2 Saturation 95 % (95-98) 04/29/18 21:47 PT/INR, D-dimer PT 20.2 Seconds (9.4-12.1) H 04/29/18 22:03 Abnormal lab findings: Abnormal lab results RBC 3.85 M/mcL (4.19-5.50) L 05/02/18 03:34 Hgb 11.6 g/dL (12.9-16.9) L 05/02/18 03:34 MCV 100.8 fL (83.0-100.0) H 05/02/18 03:34 MCHC 29.9 g/dL (31.6-35.5) L 05/02/18 03:34 RDW 17.9 % (11.5-14.5) H 05/02/18 03:34 Plt Count 98 K/mcL (140-400) L 05/02/18 03:34 Nucleated RBCs/100 WBC 0.2 /100 WBC (0) H 05/01/18 04:18 PT 20.2 Seconds (9.4-12.1) H 04/29/18 22:03 ABG pCO2 58 mmHg (35-45) H 04/29/18 21:47 ABG pO2 84 mmHg (85-104) L 04/29/18 21:47 ABG HCO3 30 mEq/L (21-27) H 04/29/18 21:47 ABG Total CO2 32 mEq/L (20-26) H 04/29/18 21:47 VBG pH 7.31 pH Units (7.32-7.42) L 04/29/18 15:43 VBG pCO2 54 mmHg (41-51) H 04/29/18 15:43 VBG pO2 155 mmHg (25-50) H 04/29/18 15:43 VBG HCO3 28 mEq/L (21-27) H 04/29/18 15:43 Carbon Dioxide 37 mEq/L (23-29) H 05/02/18 03:34 BUN 55 mg/dL (8-23) H 05/02/18 03:34 Creatinine 2.04 mg/dL (0.70-1.30) H 05/02/18 03:34 Est GFR ( Amer) 40 (> 60) L 05/02/18 03:34 Est GFR (Non-Af Amer) 33 (> 60) L 05/02/18 03:34 BUN/Creatinine Ratio 27 (6-26) H 05/02/18 03:34 Calculated Osmolality 306 (280-300) H 05/02/18 03:34 Calcium 8.2 mg/dL (8.6-10.3) L 05/02/18 03:34 Total Bilirubin 1.6 mg/dL (0.3-1.0) H 05/02/18 03:34 Direct Bilirubin 1.0 mg/dL (0.0-0.2) H 05/02/18 03:34 Troponin I 0.07 ng/mL (< 0.04) H* 05/01/18 04:18 C-Reactive Protein 10 mg/L (Less than 10) H 04/29/18 18:03 B-Natriuretic Peptide 2049 pg/mL (Less than 100) H 04/29/18 15:28 Serum Total Protein 5.1 g/dL (6.4-8.9) L 05/02/18 03:34 Albumin 3.0 g/dL (3.5-5.7) L 05/02/18 03:34 Globulin 2.1 g/dL (2.4-3.5) L 05/02/18 03:34 Urine Clarity Cloudy (Clear) A 04/29/18 16:05 Ur Specific [place] 1.008 (1.010-1.025) L 04/29/18 16:05 Urine Protein 30 mg/dL (Neg-Trace) H 04/29/18 16:05 Ur Leukocyte Esterase Trace (Negative) H 04/29/18 16:05 Urine Microscopic WBC 5-15 per hpf (0-3) H 04/29/18 16:05 Ur Squamous Epith Cells Many per lpf (None-Few) H 04/29/18 16:05 Ur Culture Indicated? NO. (NO) A 04/29/18 16:05 Vancomycin Trough 18 mcg/mL (5-10) H 05/01/18 17:00 - Clinical Findings Intake & Output: Intake & Output 05/01/18 05/01/18 05/02/18 15:59 23:59 07:59 Intake Total 100 / 100 950 / 950 100 / 100 Output Total 2600 / 2600 1450 / 1450 500 / 500 Balance -2500 / -2500 -500 / -500 -400 / -400 Weight 121.9 kg Consult Discharge Plan - Plan Referrals: [facility] – [place],Zackary Barth MD [Primary Care Provider] - - Attending Attestation I examined this patient and my medical decision-making was reviewed with the Resident Physician. I agree with the documented findings, disposition and treatment plan as described except to the extent set forth below. We independently had [id number] contact with the patient Patient seen and examined at bedside Labs, radiology, chart personally reviewed. Management was reviewed during multidisciplinary critical care rounds. INVOICING SPECIALIST: The patient is awake and alert without evidence of focal neurological deficit. I suspect some amount of underlying dementia Pulm: Acute on chronic respiratory failure acceptable oxygenation today continue nasal cannula oxygen during the day and would use BiPAP when sleeping/ at night. Complicated picture of hydrostatic pulmonary edema and acute pneumonia. He has a large right-sided pleural effusion and could consider thoracentesis for comfort this can be scheduled with interventional radiology if needed. I believe that this is secondary to heart failure there is no complex features concerning for empyema Cards: Acute on chronic systolic heart failure borderline blood pressure but excellent perfusion patient is chronically low because of his low output state from heart failure. Recommend continuation of diuresis as tolerated GI: Continue to monitor Nutrition: Advance diet Renal: RANDA improving. UOP Monitored, Cont to Trend sCr and monitor Electrolytes. ID: Continue treatment for pneumonia he is on antibiotics with plan to de- escalate pending microbiological data Heme/Onc: DVT prophylaxis given Endo: Glucose Monitored Integ/MSK: Skin Care per routine ICU Nursing Protocol to prevent ulcers. Lines: All lines examined without evidence of infection : Dispo: Stable for transfer to stepdown for ongoing care CODE: FULL. Overall prognosis poor given patient's multiple underlying comorbid conditions there is been question about the level of aggressiveness and care formal palliative care consultation requested today <Eros Herrera R - Last Filed: 05/02/18 12:49> Date of Encounter: 05/02/18 Time of Encounter: 07:15 Assessment and Plan (1) Sepsis Current Visit: Yes Status: Acute Likely secondary to to right-sided pneumonia is visualized on chest CT. Strep pneumonia antigen negative. Legionella antibody pending. Blood cultures negative growth to date. Normalized leukocytosis, afebrile, lactate now within normal limits. Conservative with fluid resuscitation due to severe heart failure Improving respiratory status and resolving cellulitis. Will de-escalate antibiotics and continue coverage with Levaquin for duration of HCAP treatment. Patient is hemodynamically stable. Will plan for stepdown today Qualifiers: Qualified Code(s): A41.9 - Sepsis, unspecified organism (2) HCAP (healthcare-associated pneumonia) Current Visit: Yes Status: Acute CT chest does demonstrate infiltrate in the right upper and middle lobes concerning for pneumonia. Leukocytosis has normalized, patient is afebrile, lactate normalized Has received 4 days of broad-spectrum about a coverage, will de-escalate therapy and continue with Levaquin (3) Advance care planning Current Visit: Yes Status: Acute Patient and did meet with palliative care and last admission at the end of March 2018. At that time patient was made DNRCC-arrest/DNI and was discharged home with hospice referral. On 04/29 Patient began feeling sick with progressive shortness of breath which was concerning for the family. Patient and family were unclear that while on hospice he would not undergo further treatment and would continue to worsen clinically. They have stated that they do not want hospice care. Patient was again made full code upon this admission. I have spoken with the patient's , the patient is awake and arousable however he remains quite confused and is unable to carry out appropriate conversation. After extensive discussion, her understanding of the patient's condition and prognosis is limited. We will consult palliative care for better understanding and planning of goals of care. (4) Respiratory failure Current Visit: Yes Status: Acute Respiratory failure with hypoxia and hypercapnia in the setting of severe systolic heart failure and health care associated pneumonia. Currently saturating in the 90s on 3L by nasal cannula. Continue BiPAP while sleeping for improved preload and afterload Qualifiers: Qualified Code(s): J96.01 - Acute respiratory failure with hypoxia (5) Altered mental status Current Visit: Yes Status: Acute Spoke with patient's today. She reports that patient is not at his baseline, he is very confused today, she states this is not normal. Head CT on 04/29 did not reveal acute intracranial abnormality No significant metabolic abnormalities present We will continue treatment of pneumonia and comorbidities which may be contributing to his altered mental status, patient may have some underlying dementia. Will resume patient's home antipsychotic Qualifiers: Qualified Code(s): R41.82 - Altered mental status, unspecified (6) Pleural effusion, right Current Visit: Yes Status: Acute Moderate to large right-sided pleural effusion and small left-sided pleural effusions present on CT chest evaluation. Effusion remained stable on chest x- ray Patient is net negative at -7.3 L since this admission. Continues to diurese well on Lasix. Will transition to by mouth Lasix 40 mg twice a day. Continue to monitor patient's renal and electrolyte status. Replete electrolytes as indicated. If respiratory status worsens or is persistently suboptimal patient may benefit from therapeutic thoracentesis. (7) COPD (chronic obstructive pulmonary disease) Current Visit: No Status: Chronic Saturating well on 4L NC, continue BiPAP at night and while sleeping. Nebulizer albuterol available when necessary Qualifiers: Qualified Code(s): J43.8 - Other emphysema (8) Acute on chronic renal failure Current Visit: No Status: Acute RANDA at admission with serum creatinine of 2.31> 2.39> 2.23>2.04. Creatinine is stable. We will continue to monitor especially in the setting of gentle diuresis. Will use caution with regard to fluid resuscitation due to patient's severe heart failure Qualifiers: Qualified Code(s): N17.9 - Acute kidney failure, unspecified; N18.3 - Chronic kidney disease, stage 3 (moderate) (9) Cellulitis Current Visit: Yes Status: Acute Chronic venous stasis and multiple oozing ulcers on bilateral lower extremities are present. Cellulitis and erythema have resolved. Will de-escalate antibiotic coverage at this time. Continue with daily wound care for venous stasis ulcers. Qualifiers: Qualified Code(s): L03.119 - Cellulitis of unspecified part of limb (10) Type II diabetes mellitus Current Visit: No Status: Chronic Low-dose corrective sliding scale Patient will be started on soft diet, will follow for adequate glycemic control and adjust as necessary Qualifiers: Qualified Code(s): E11.59 - Type 2 diabetes mellitus with other circulatory complications (11) DVT prophylaxis Current Visit: No Status: Acute Heparin 5000 units SQ BID Subjective Principal diagnosis: sepsis Interval history: Nursing reports poor sleep overnight. Tolerating BiPAP while sleeping. Objective PUL Vital signs: Last Vital Signs Temp 97.8 F 05/02/18 03:03 Pulse 77 05/02/18 06:00 Resp 13 05/02/18 06:00 BP 87/58 05/02/18 06:00 Pulse Ox 96 05/02/18 06:00 General appearance: no acute distress Eyes: nonicteric ENT: oropharynx moist, other (BiPAP mask in place) Neck: supple Effort: mildly labored Auscultation: bilateral: diminished breath sounds (Worse on right), rales Cardiovascular: regular rate and rhythm Gastrointestinal: normoactive bowel sounds, soft, non-distended Integumentary: other (Bilateral venous stasis ulcers) Extremities: no cyanosis, edema (Venous stasis ulcers bilaterally, erythema of left lower extremity cellulitis has improved is now minimally present.) Musculoskeletal: no deformities Gait: normal posture other (Patient remains alert and oriented 1, is confused, per family this is worse than patient's baseline) other Results - Laboratory Findings CBC and BMP: 05/02/18 03:34 05/02/18 03:34 ABG ABG pH 7.32 pH Units (7.32-7.45) 04/29/18 21:47 ABG pCO2 58 mmHg (35-45) H 04/29/18 21:47 ABG pO2 84 mmHg (85-104) L 04/29/18 21:47 ABG O2 Saturation 95 % (95-98) 04/29/18 21:47 PT/INR, D-dimer PT 20.2 Seconds (9.4-12.1) H 04/29/18 22:03 Abnormal lab findings: Abnormal lab results RBC 3.85 M/mcL (4.19-5.50) L 05/02/18 03:34 Hgb 11.6 g/dL (12.9-16.9) L 05/02/18 03:34 MCV 100.8 fL (83.0-100.0) H 05/02/18 03:34 MCHC 29.9 g/dL (31.6-35.5) L 05/02/18 03:34 RDW 17.9 % (11.5-14.5) H 05/02/18 03:34 Plt Count 98 K/mcL (140-400) L 05/02/18 03:34 Nucleated RBCs/100 WBC 0.2 /100 WBC (0) H 05/01/18 04:18 PT 20.2 Seconds (9.4-12.1) H 04/29/18 22:03 ABG pCO2 58 mmHg (35-45) H 04/29/18 21:47 ABG pO2 84 mmHg (85-104) L 04/29/18 21:47 ABG HCO3 30 mEq/L (21-27) H 04/29/18 21:47 ABG Total CO2 32 mEq/L (20-26) H 04/29/18 21:47 VBG pH 7.31 pH Units (7.32-7.42) L 04/29/18 15:43 VBG pCO2 54 mmHg (41-51) H 04/29/18 15:43 VBG pO2 155 mmHg (25-50) H 04/29/18 15:43 VBG HCO3 28 mEq/L (21-27) H 04/29/18 15:43 Carbon Dioxide 37 mEq/L (23-29) H 05/02/18 03:34 BUN 55 mg/dL (8-23) H 05/02/18 03:34 Creatinine 2.04 mg/dL (0.70-1.30) H 05/02/18 03:34 Est GFR ( Amer) 40 (> 60) L 05/02/18 03:34 Est GFR (Non-Af Amer) 33 (> 60) L 05/02/18 03:34 BUN/Creatinine Ratio 27 (6-26) H 05/02/18 03:34 Calculated Osmolality 306 (280-300) H 05/02/18 03:34 Calcium 8.2 mg/dL (8.6-10.3) L 05/02/18 03:34 Total Bilirubin 1.6 mg/dL (0.3-1.0) H 05/02/18 03:34 Direct Bilirubin 1.0 mg/dL (0.0-0.2) H 05/02/18 03:34 Troponin I 0.07 ng/mL (< 0.04) H* 05/01/18 04:18 C-Reactive Protein 10 mg/L (Less than 10) H 04/29/18 18:03 B-Natriuretic Peptide 2049 pg/mL (Less than 100) H 04/29/18 15:28 Serum Total Protein 5.1 g/dL (6.4-8.9) L 05/02/18 03:34 Albumin 3.0 g/dL (3.5-5.7) L 05/02/18 03:34 Globulin 2.1 g/dL (2.4-3.5) L 05/02/18 03:34 Urine Clarity Cloudy (Clear) A 04/29/18 16:05 Ur Specific [place] 1.008 (1.010-1.025) L 04/29/18 16:05 Urine Protein 30 mg/dL (Neg-Trace) H 04/29/18 16:05 Ur Leukocyte Esterase Trace (Negative) H 04/29/18 16:05 Urine Microscopic WBC 5-15 per hpf (0-3) H 04/29/18 16:05 Ur Squamous Epith Cells Many per lpf (None-Few) H 04/29/18 16:05 Ur Culture Indicated? NO. (NO) A 04/29/18 16:05 Vancomycin Trough 18 mcg/mL (5-10) H 05/01/18 17:00 - Clinical Findings Intake & Output: Intake & Output 05/01/18 05/01/18 05/02/18 15:59 23:59 07:59 Intake Total 100 / 100 950 / 950 100 / 100 Output Total 2600 / 2600 1450 / 1450 500 / 500 Balance -2500 / -2500 -500 / -500 -400 / -400 Weight 121.9 kg
[2018-05-02] MEDS ORDERED: Potassium Effervescent 25 MEQ TABLET.EFF PO ONE (08:29)
[2018-05-02] MEDS: Furosemide 20 MG/2 ML VIAL IVP SCH (08:46)
[2018-05-02] MEDS: Piperacillin/Tazobactam 3.375 GM in 0.9 % Sodium Chloride Mini Bag 100 ML IVPB SCH (08:46)
[2018-05-02] MEDS ORDERED: Dextrose Gel 15 GM/37.5 ML TUBE PO PRN ×2 (09:39)
[2018-05-02] MEDS ORDERED: Naloxone 0.4 MG/ML INJ IVP PRN (09:39)
[2018-05-02] MEDS ORDERED: *HR* Dextrose 50 % in Water (Syg) 50 ML SYRINGE IVP PRN (09:39)
[2018-05-02] MEDS ORDERED: Albuterol 2.5 MG/3 ML NEBULIZER IH PRN (09:39)
[2018-05-02] MEDS ORDERED: D5% in Water 1,000 ML IVC PRN (09:39)
[2018-05-02] MEDS ORDERED: traMADol 50 MG TABLET PO PRN (09:39)
--- NOTE | 2018-05-02 11:24 | Palliative - Consult Note ---
<Nancy Benton N - Last Filed: 05/02/18 15:51> Date of Encounter: 05/02/18 Time of Encounter: 11:23 - Assessment and Plan (1) Goals of care, counseling/discussion Current Visit: Yes Status: Acute Assessment and plan: Palliative care team was consulted regarding goals of care discussion. Patient was discharged from [place] approximately one week ago, at which time he was enrolled in hospice. Upon return to the ED this admission, patient and his reportedly revoked hospice as they were unaware of what that meant. Patient had reportedly stated multiple times that he did not want resuscitation or intubation; however, his DNR order was also revoked when he presented to the ED. Goals of care discussion was conducted today with the patient's and his two sisters present. Patient was unable to participate in the discussion due to altered mental status. Patient's does not appear to have much understanding regarding her 's illness and prognosis, particularly in light of his multiple recent hospitalizations and overall decline. She states that he spends most of his time at home in bed, but does transition to a chair at times; however, this does tend to incite dyspnea. She states that he does not call out and repeat himself at home, and wonders if his mental status at this time might be due to medications or the fact that he is in the hospital again. She states that he expressed to her that he wanted "everything done to live" while in the ED a few days ago, and has been proceeding accordingly. Patient's and sisters were educated regarding his multiple comorbidities, illness trajectory, limited treatment options, and poor overall prognosis. They were advised that he will require additional assistance at home after this admission. The family appears agreeable to short-term ECF placement, with hopes of him regaining enough strength to return home after that. Discussed with the family what hospice care is and what services may be provided; however, they do not appear to be ready for hospice at this time. Will revisit goals of care discussion with family tomorrow. (2) HCAP (healthcare-associated pneumonia) Current Visit: Yes Status: Acute Assessment and plan: CXR performed in the ED demonstrated bilateral pleural effusions that were not present on previous studies. Findings were also significant for new patchy airspace opacities, possibly related to atelectasis, multifocal infiltrates, and /or pulmonary edema. He was started on broad-spectrum antibiotic coverage with zosyn for suspected HCAP due to recent hospitalization. Per pulmonology recommendations, plan for deescalation to [facility] for continued antimicrobial therapy. (3) Altered mental status Current Visit: Yes Status: Acute Assessment and plan: Patient was brought to the ED for evalution of altered mental status. He does have a history of hepatic encephalopathy. Per prior notes, patient has had decreased mental status in the past and was not able to participate fully in goals of care discussions in the past. Plan for continued treatment of his acute pneumonia, as that may be contributing to his mental status change. Will continue to monitor and evaluate for other underlying causes of worsenig mental status, per primary team. Qualifiers: Altered mental status type: unspecified Qualified Code(s): R41.82 - Altered mental status, unspecified (4) CHF (congestive heart failure) Current Visit: No Status: Chronic Assessment and plan: Patient has history of CHF, with his last echocardiogram reportedly demonstrating EF ~20%. He has been receiving diuresis with IV lasix 40mg BID, with good urine output in response. Patient denies any current respiratory difficulties and appears to be comfortable in bed with his head elevated. Will continue current management per primary team. Qualifiers: Heart failure type: systolic Heart failure chronicity: acute on chronic Qualified Code(s): I50.23 - Acute on chronic systolic (congestive) heart failure (5) COPD exacerbation Current Visit: Yes Status: Acute Assessment and plan: Patient has a chronic history of COPD; however, he does not appear to be having an acute exacerbation at this time. His oxygen saturation has remained WNL on 4L continuous via nasal canula. Plan for continued monitoring of respiratory status and albuterol Q4H PRN. Palliative-CN HPI - Data of Consult Patient: known to practice within the last 3 years Consult date: 05/02/18 Requesting Physician: Chacho Martinez MD Primary Care Provider: Zackary Hale MD - Consult Narrative Reason for consult: Goals of care History of present illness: Mr. Emmanuel is a 63 year old male who has an extensive medical history. He has had multiple hospitalizations in the last year, and is known to the palliative service. He enrolled in hospice care prior to discharge from his last admission ; however, upon returning to the hospital this time, he and his revoked both hospice and his prior DNR-CC order. He has stated in the past that he did not want cardiac resuscitation and/or intubation. Palliative care team was consulted during the admission for assistance in determining goals of care. On evaluation today, patient appears to be resting in bed comfortably. He is alert and oriented to self and location, and is able to recite his date of . He is very repetitive, demonstrating palilalia. He denies any acute complaints or concerns at this time, but does request "cold water". Patient's family present during the afternoon; they expresses concern for patient's persistent yelling and repetition of phrases. CC: Chacho Martinez MD - Time Spent with Patient Time: Total time spent is greater than 50% in coordination of care (as documented) at patient's floor/unit and/or counseling patient: Past Med Surg Social Fam HX - Past Medical History Medical history: cancer, cardiomyopathy, COPD, coronary artery disease, diabetes , hyperlipidemia, hypertension, myocardial infarction, other Additional medical history: pancreatitis. short-term memory problems Psychiatric history: no psych history - Past Surgical History Surgical History: angioplasty/stent, cataract, herniorrhaphy, other Additional surgical history: x3 stents - Social History Smoking Status: Current every day smoker Packs per day: 1.5 Smokeless Tobacco Status: No Alcohol use: none Drug use: none - Family History Father History Unknown: Yes Adopted: No Living Status: Hx Family Cardiac Disorders: No Hx Family Respiratory Disorders: Yes Hx Family Cancer: Yes Hx Family GI Disorders: No Hx Family Endocrine Disorder: No Hx Family Neuromuscular Disorders: No Hx Family Neurologic Disorders: No Hx Family HEENT Disorders: No Hx Family Autoimmune Disorders: No Mother History Unknown: Yes Adopted: No Family Member Ethnicity: Non- Living Status: Hx Family Cardiac Disorders: No Hx Family Respiratory Disorders: Yes Hx Family Cancer: Yes Hx Family GI Disorders: No Hx Family Endocrine Disorder: Yes Hx Family Neuromuscular Disorders: No Hx Family Neurologic Disorders: No Hx Family HEENT Disorders: No Hx Family Autoimmune Disorders: No Medications and Allergies Albuterol Sulfate [Albuterol Inhaler] 2 puff IH Q4HR PRN 05/17/15 [History] Ezetimibe [Zetia] 10 mg PO DAILY 05/17/15 [History] Metformin HCl [Glucophage] 1,000 mg PO BID 05/17/15 [History] Tiotropium [Spiriva] 18 mcg IH DAILY 05/17/15 [History] Clopidogrel [Plavix] 75 mg PO DAILY 10/27/17 [History] Lisinopril [Zestril] 2.5 mg PO DAILY PRN 10/27/17 [History] Metoprolol Succinate [Toprol Xl] 25 mg PO DAILY 10/27/17 [History] Lipase/Protease/Amylase [Creon Dr 12,000 Units Capsule] 1 cap PO BIDWM 11/10/17 [History] Cholestyramine 4 g PO BID 01/24/18 [History] Perphenazine [Trilafon] 8 mg PO HS 01/24/18 [History] Tamsulosin [Flomax] 0.4 mg PO DAILY #30 capsule 02/04/18 [Rx] Bacitracin OINT [Ak-Tracin] 1 appl TP BID 30 Days #1 tube 03/23/18 [Rx] Nystatin Cream [Mycostatin Cream] 1 appl TP BID 30 Days #1 tube 03/23/18 [Rx] Aspirin [Lo-Dose Aspirin EC] 81 mg PO DAILY 04/09/18 [History] Furosemide [Lasix] 40 mg PO BID 04/09/18 [History] Lactulose 20 gm PO BID #60 udc 04/14/18 [Rx] 3 Allergy/AdvReac Type Severity Reaction Status Date / Time loxapine [From Loxitane] Allergy See Verified 04/16/18 10:55 Comments betamethasone AdvReac Hives Verified 04/16/18 10:55 [From Lotrisone] clotrimazole [From Lotrisone] AdvReac Hives Verified 04/16/18 10:55 Sulfa (Sulfonamide AdvReac Hives Verified 04/16/18 10:55 Antibiotics) Palliative Care-Exam - Constitutional Vitals: Temp Pulse Resp BP Pulse Ox 98.0 F 86 20 101/65 98 05/02/18 07:00 05/02/18 10:00 05/02/18 10:00 05/02/18 10:00 05/02/18 10:00 Exam: GENERAL: Ill-appearing male resting in bed. He calls out repeatedly; however, he does not appear to be in acute distress. HEENT: Atraumatic and normocephalic. Nasal canula in place. CARDIOVASCULAR: Regular rate and rhythm. S1 and S2 present. No murmurs, rubs, or gallops present. RESPIRATORY: Decreased breath sounds bilaterally. No wheezes noted. ABDOMEN: Active bowel sounds x 4 quadrants. Abdomen is distended and soft. Patient expresses tenderness to palpation in the left lower quadrant. Small superficial bruising present in this area presumably from administration of SQ heparin. EXTREMITIES: Bandages present on bilateral legs. Patient expresses tenderness to palpation in bilateral LE. Mild edema present. NEUROLOGIC: Patient answers questions appropriately and is able to state his name and date of . He demonstrates palilalia and often yells out. Internal Medicine - CN: Reslt - Labs CBC & Chem 7: 05/02/18 03:34 05/02/18 03:34 Labs: Short CBC 05/02/18 Range/Units 03:34 WBC 7.0 (4.3-11.1) K/mcL Hgb 11.6 L (12.9-16.9) g/dL Hct 38.8 (37.5-50.1) % Plt Count 98 L (140-400) K/mcL Neutrophils # 5.6 (1.6-8.9) K/mcL BMP 05/02/18 03:34 Sodium 141 Potassium 3.7 Chloride 99 Carbon Dioxide 37 H BUN 55 H Creatinine 2.04 H Glucose 75 Calcium 8.2 L Liver Function 05/02/18 Range/Units 03:34 Total Bilirubin 1.6 H (0.3-1.0) mg/dL Direct Bilirubin 1.0 H (0.0-0.2) mg/dL AST 22 (13-39) Units/L ALT 30 (7-52) Units/L Alkaline Phosphatase 53 (34-104) Units/L Albumin 3.0 L (3.5-5.7) g/dL - ABG Interpretation ABG results: ABG ABG pH 7.32 pH Units (7.32-7.45) 04/29/18 21:47 ABG pCO2 58 mmHg (35-45) H 04/29/18 21:47 ABG pO2 84 mmHg (85-104) L 04/29/18 21:47 ABG O2 Saturation 95 % (95-98) 04/29/18 21:47 PT/INR, D-dimer PT 20.2 Seconds (9.4-12.1) H 04/29/18 22:03 - Impressions Impressions Chest X-Ray 05/02/18 04:00 IMPRESSION: Patchy airspace opacities bilaterally, right more than left, grossly stable. Stable moderate right pleural effusion. Low lung volumes. D/ / Travis Guevara MD / Travis Guevara MD Interpreting Provider: Travis Guevara MD Consult Discharge Plan - Plan Referrals: Zackary Hale MD [Primary Care Provider] - Palliative Quality Palliative Quality: Screen for Code Status: Yes, Screen for Goals of Care: Yes, Screen for Pain: Yes, If Pain Regimen Started, Initiate Bowel Regimen: NA, Screen for Nausea/Vomitting: Yes Code Status: 04/29/18 17:31 Resuscitation Status: Active [RES] Routine Comment: Patient does not want to be Intubated. Resuscitation Status: Full Code <Patrica Waite - Last Filed: 05/02/18 16:48> Date of Encounter: 05/02/18 Palliative-CN HPI - Data of Consult Requesting Physician: Chacho Martinez MD Primary Care Provider: Zackary Hale MD - Consult Narrative History of present illness: Mr. Emmanuel is a 63 year old male CC: Chacho Martinez MD - Time Spent with Patient Time: Total time spent is greater than 50% in coordination of care (as documented) at patient's floor/unit and/or counseling patient: Palliative Care-Exam - Constitutional Vitals: Temp Pulse Resp BP Pulse Ox 97.8 F 101 20 91/71 97 05/02/18 16:03 05/02/18 16:03 05/02/18 16:03 05/02/18 16:03 05/02/18 16:03 Internal Medicine - CN: Reslt - Labs CBC & Chem 7: 05/02/18 03:34 05/02/18 03:34 Labs: Short CBC 05/02/18 Range/Units 03:34 WBC 7.0 (4.3-11.1) K/mcL Hgb 11.6 L (12.9-16.9) g/dL Hct 38.8 (37.5-50.1) % Plt Count 98 L (140-400) K/mcL Neutrophils # 5.6 (1.6-8.9) K/mcL BMP 05/02/18 03:34 Sodium 141 Potassium 3.7 Chloride 99 Carbon Dioxide 37 H BUN 55 H Creatinine 2.04 H Glucose 75 Calcium 8.2 L Liver Function 05/02/18 Range/Units 03:34 Total Bilirubin 1.6 H (0.3-1.0) mg/dL Direct Bilirubin 1.0 H (0.0-0.2) mg/dL AST 22 (13-39) Units/L ALT 30 (7-52) Units/L Alkaline Phosphatase 53 (34-104) Units/L Albumin 3.0 L (3.5-5.7) g/dL - ABG Interpretation ABG results: ABG ABG pH 7.32 pH Units (7.32-7.45) 04/29/18 21:47 ABG pCO2 58 mmHg (35-45) H 04/29/18 21:47 ABG pO2 84 mmHg (85-104) L 04/29/18 21:47 ABG O2 Saturation 95 % (95-98) 04/29/18 21:47 PT/INR, D-dimer PT 20.2 Seconds (9.4-12.1) H 04/29/18 22:03 - Impressions Impressions Chest X-Ray 05/02/18 04:00 IMPRESSION: Patchy airspace opacities bilaterally, right more than left, grossly stable. Stable moderate right pleural effusion. Low lung volumes. D/ / Travis Guevara MD / Travis Guevara MD Interpreting Provider: Travis Guevara MD - Attending Attestation I was present with resident during history and physical, as well as meeting with pt and family, and I agree with resident's note and plan. Met with pt's and sisters. Patient was confused and unable to participate in the conversation. Pt's has unrealistic expectations, and does not seam to fully comprehend the extent of his multiple comorbidities. She does not grasp the notion that pt has a very poor prognosis of weeks to months at this point. Pt's sisters had a better comprehension, but are still hopeful in a miracle. Family is not ready for hospice. We were unable to define a code status. As per family, pt wants chest compressions, but not intubation. Explained that CPR given pt's clinical conditions will not be recommended, and however would not be effective without intubation. No decision was made and pt remains full code. palliative care will follow. Palliative Quality Code Status: 04/29/18 17:31 Resuscitation Status: Active [RES] Routine Comment: Patient does not want to be Intubated. Resuscitation Status: Full Code
[2018-05-02] MEDS ORDERED: Insulin LISPRO 300 UNITS/3 ML VIAL SQ SCH (12:00)
[2018-05-02] MEDS ORDERED: Piperacillin/Tazobactam 3.375 GM in 0.9 % Sodium Chloride Mini Bag 100 ML IVPB SCH (16:00)
--- NOTE | 2018-05-02 16:43 | Electrocardiograph Report ---
[address] [address] Test Date: 2018-04-29 Pat Name: Deuce Emmanuel Department: [id number] Room: 2N15 Gender: M [employer] Specialist: : [id number] Requested By: [id number] Order Number: [id number] Reading MD: Allen Chambers Measurements Intervals [place] Rate: 94 P: RI: QRS: -89 QRSD: 84 T: 99 QT: 361 QTc: 414 Interpretive Statements Atrial flutter/tachycardia Ventricular premature complex Low voltage, extremity and precordial leads Abnormal R-wave progression, late transition Electronically Signed On 05-02-2018 16:41:28 EDT by Allen Chambers
[2018-05-02] MEDS: Furosemide 40 MG TABLET PO SCH (18:37)
[2018-05-02] MEDS: Nystatin Cream 15 GM TUBE TP SCH (20:27)
[2018-05-02] MEDS: Perphenazine 8 MG TABLET PO SCH (20:29)
[2018-05-02] MEDS: Cholestyramine 4 GM POWD.PACK PO SCH (20:29)
[2018-05-02] MEDS: Lactulose Oral Soln 20 GM/30 ML UDC PO SCH (20:29)
[2018-05-02] MEDS: Melatonin 3 MG TABLET PO PRN (20:29)
[2018-05-03] MEDS ORDERED: *HR* LORazepam 2 MG/ML VIAL IVP ONE (03:02)
[2018-05-03 04:11] LABS: Eosinophils # 0.1 K/mcL (0.0-0.6); Eosinophils % 1.1 %; Hematocrit 37.3 % (37.5-50.1); Hemoglobin 11.2 g/dL (12.9-16.9); Immature Granulocytes % 0.4 % (0-4); Lymphocytes # 0.5 K/mcL (0.6-4.6); Lymphocytes % 7.2 %; Mean Corpuscular Hemoglobin 30.4 pg (28.0-33.3); Mean Corpuscular Volume 101.1 fL (83.0-100.0); Monocytes # 0.7 K/mcL (0.0-1.3); Monocytes % 9.3 %; Neutrophils # 5.8 K/mcL (1.6-8.9); Red Blood Count 3.69 M/mcL (4.19-5.50); Red Cell Distribution Width 17.5 % (11.5-14.5)
[2018-05-03 04:13] LABS: Platelet Count 91 K/mcL (140-400)
[2018-05-03 04:33] LABS: Calcium 8.4 mg/dL (8.6-10.3); Magnesium 1.8 mg/dL (1.6-2.6); Phosphorous 3.8 mg/dL (2.7-4.5)
[2018-05-03] MEDS: *HR* Heparin 5,000 UNIT/ML VIAL SQ SCH ×2 (07:03→17:29)
--- NOTE | 2018-05-03 09:58 | Palliative Progress Note ---
<Nancy Benton N - Last Filed: 05/03/18 10:24> Date of Encounter: 05/03/18 Time of Encounter: 09:56 - Assessment and plan (1) Goals of care, counseling/discussion Current Visit: Yes Status: Acute Assessment and plan: Patient's was present at the bedside at the time of evaluation this morning. She expresses continued concern for the patient's condition, though does appear relieved that he is finally able to sleep. She was reassured that the patient is still receiving treatment for acute pneumonia, as well as his regular medications. She expresses that she is fatigued, as she finds it difficult to rest while her is ill. She was encouraged to nap when possible, and was reassured that nursing staff was keeping a close eye on the patient and his needs. Will discuss goals of care tomorrow, and attempt to further clarify code status. Patient is still full code at this time. (2) Altered mental status Current Visit: Yes Status: Acute Assessment and plan: Patient reportedly had a good deal of confusion and agitation last night, and reportedly spent much of the night calling out. He was given a dose of seroquel ; however, that reportedly had no effect. He also received a dose of ativan, which was successful in alleviating his agitation. At time of exam this morning , patient is sleeping comfortably, though he is difficult to rouse. Will continue monitoring mental status in cooperation with primary team. I Qualifiers: Altered mental status type: unspecified Qualified Code(s): R41.82 - Altered mental status, unspecified (3) HCAP (healthcare-associated pneumonia) Current Visit: Yes Status: Acute Assessment and plan: CXR performed in the ED demonstrated bilateral pleural effusions that were not present on previous studies. Findings were also significant for new patchy airspace opacities, possibly related to atelectasis, multifocal infiltrates, and /or pulmonary edema. He was started on broad-spectrum antibiotic coverage with zosyn for suspected HCAP due to recent hospitalization. Antibiotic therapy has been deescalated, and patient is currently on levaquin. Will continue antimicrobial therapy per primary team. (4) CHF (congestive heart failure) Current Visit: No Status: Chronic Assessment and plan: Patient has history of CHF, with his last echocardiogram reportedly demonstrating EF ~20%. He is reportedly noncompliant with medical recommendations regarding fluid restriction and diuretic use. While in the hospital, he has been receiving diuresis with IV lasix 40mg BID, with good urine output in response. Patient denies any current respiratory difficulties and appears to be comfortable in bed with his head elevated. Will continue current management per primary team. Qualifiers: Heart failure type: systolic Heart failure chronicity: acute on chronic Qualified Code(s): I50.23 - Acute on chronic systolic (congestive) heart failure (5) COPD exacerbation Current Visit: Yes Status: Acute Assessment and plan: Patient has a chronic history of COPD; however, he does not appear to be having an acute exacerbation at this time. His oxygen saturation has remained WNL on 4L continuous via nasal canula. Plan for continued monitoring of respiratory status and albuterol Q4H PRN. - Time Spent With Patient Total time spent is greater than 50% in coordination of care (as documented) at patient's floor/unit and/or counseling patient: - Subjective Interval history: Mr. Emmanuel is sleeping this morning at the time of evaluation. Nursing staff reports that he was restless overnight, and spent most of the night calling out. He did receive a dose of seroquel and a dose of ativan, and was reportedly able to sleep this morning. Per his primary nurse today, patient is somewhat difficult to rouse today, though he does respond when stimulated. Patient's is present at the bedside and confirms that the patient did have a rough night. She states that she is feeling tired as well, as it is difficult for her to sleep when her is ill. She denies any new concerns about her ' s health at this time. - Constitutional Vitals: Abnormal lab results RBC 3.69 M/mcL (4.19-5.50) L 05/03/18 03:59 Hgb 11.2 g/dL (12.9-16.9) L 05/03/18 03:59 Hct 37.3 % (37.5-50.1) L 05/03/18 03:59 MCV 101.1 fL (83.0-100.0) H 05/03/18 03:59 MCHC 30.0 g/dL (31.6-35.5) L 05/03/18 03:59 RDW 17.5 % (11.5-14.5) H 05/03/18 03:59 Plt Count 91 K/mcL (140-400) L 05/03/18 03:59 Lymphocytes # 0.5 K/mcL (0.6-4.6) L 05/03/18 03:59 Nucleated RBCs/100 WBC 0.2 /100 WBC (0) H 05/01/18 04:18 PT 20.2 Seconds (9.4-12.1) H 04/29/18 22:03 ABG pCO2 58 mmHg (35-45) H 04/29/18 21:47 ABG pO2 84 mmHg (85-104) L 04/29/18 21:47 ABG HCO3 30 mEq/L (21-27) H 04/29/18 21:47 ABG Total CO2 32 mEq/L (20-26) H 04/29/18 21:47 VBG pH 7.31 pH Units (7.32-7.42) L 04/29/18 15:43 VBG pCO2 54 mmHg (41-51) H 04/29/18 15:43 VBG pO2 155 mmHg (25-50) H 04/29/18 15:43 VBG HCO3 28 mEq/L (21-27) H 04/29/18 15:43 Chloride 96 mEq/L (98-107) L 05/03/18 03:59 Carbon Dioxide 39 mEq/L (23-29) H 05/03/18 03:59 BUN 47 mg/dL (8-23) H 05/03/18 03:59 Creatinine 1.90 mg/dL (0.70-1.30) H 05/03/18 03:59 Est GFR ( Amer) 43 (> 60) L 05/03/18 03:59 Est GFR (Non-Af Amer) 36 (> 60) L 05/03/18 03:59 Glucose 178 mg/dL (70-105) H 05/03/18 03:59 POC Glucose 141 mg/dL (70-99) H 05/03/18 07:18 Calculated Osmolality 307 (280-300) H 05/03/18 03:59 Calcium 8.4 mg/dL (8.6-10.3) L 05/03/18 03:59 Total Bilirubin 1.6 mg/dL (0.3-1.0) H 05/02/18 03:34 Direct Bilirubin 1.0 mg/dL (0.0-0.2) H 05/02/18 03:34 Troponin I 0.07 ng/mL (< 0.04) H* 05/01/18 04:18 C-Reactive Protein 10 mg/L (Less than 10) H 04/29/18 18:03 B-Natriuretic Peptide 2049 pg/mL (Less than 100) H 04/29/18 15:28 Serum Total Protein 5.1 g/dL (6.4-8.9) L 05/02/18 03:34 Albumin 3.0 g/dL (3.5-5.7) L 05/02/18 03:34 Globulin 2.1 g/dL (2.4-3.5) L 05/02/18 03:34 Urine Clarity Cloudy (Clear) A 04/29/18 16:05 Ur Specific [place] 1.008 (1.010-1.025) L 04/29/18 16:05 Urine Protein 30 mg/dL (Neg-Trace) H 04/29/18 16:05 Ur Leukocyte Esterase Trace (Negative) H 04/29/18 16:05 Urine Microscopic WBC 5-15 per hpf (0-3) H 04/29/18 16:05 Ur Squamous Epith Cells Many per lpf (None-Few) H 04/29/18 16:05 Ur Culture Indicated? NO. (NO) A 04/29/18 16:05 Vancomycin Trough 18 mcg/mL (5-10) H 05/01/18 17:00 Exam: GENERAL: Ill-appearing male sleeping in bed comfortably. He is difficult to rouse, though is responsive to stimuli. HEENT: Atraumatic and normocephalic. Nasal canula in place. CARDIOVASCULAR: Regular rate and rhythm. S1 and S2 present. No murmurs, rubs, or gallops present. RESPIRATORY: Decreased breath sounds bilaterally. No wheezes noted. ABDOMEN: Active bowel sounds x 4 quadrants. Abdomen is distended and soft. EXTREMITIES: Bandages present on bilateral legs. Mild edema present in bilateral LE. Palliative Quality Palliative Quality: Screen for Code Status: Yes, Screen for Goals of Care: Yes, Screen for Pain: Yes, If Pain Regimen Started, Initiate Bowel Regimen: NA, Screen for Nausea/Vomitting: Yes Code Status: 04/29/18 17:31 Resuscitation Status: Active [RES] Routine Comment: Patient does not want to be Intubated. Resuscitation Status: Full Code - Labs CBC & Chem 7: 05/03/18 03:59 05/03/18 03:59 Labs: Laboratory Results - last 24 hr 05/02/18 05/02/18 05/02/18 10:51 16:06 19:58 WBC RBC Hgb Hct MCV MCH MCHC RDW Plt Count MPV Immature Gran % Seg Neutrophils % Lymphocytes % Monocytes % Eosinophils % Basophils % Neutrophils # Lymphocytes # Monocytes # Eosinophils # Basophils # Sodium Potassium Chloride Carbon Dioxide BUN Creatinine Est GFR ( Amer) Est GFR (Non-Af Amer) BUN/Creatinine Ratio Glucose POC Glucose 142 H 135 H 154 H Calculated Osmolality Calcium Phosphorus Magnesium 05/03/18 05/03/18 05/03/18 03:59 03:59 07:18 WBC 7.1 RBC 3.69 L Hgb 11.2 L Hct 37.3 L MCV 101.1 H MCH 30.4 MCHC 30.0 L RDW 17.5 H Plt Count 91 L MPV 10.0 Immature Gran % 0.4 Seg Neutrophils % 82.0 Lymphocytes % 7.2 Monocytes % 9.3 Eosinophils % 1.1 Basophils % 0.0 Neutrophils # 5.8 Lymphocytes # 0.5 L Monocytes # 0.7 Eosinophils # 0.1 Basophils # 0.0 Sodium 140 Potassium 4.0 Chloride 96 L Carbon Dioxide 39 H BUN 47 H Creatinine 1.90 H Est GFR ( Amer) 43 L Est GFR (Non-Af Amer) 36 L BUN/Creatinine Ratio 25 Glucose 178 H POC Glucose 141 H Calculated Osmolality 307 H Calcium 8.4 L Phosphorus 3.8 Magnesium 1.8 - ABG Interpretation ABG results: ABG ABG pH 7.32 pH Units (7.32-7.45) 04/29/18 21:47 ABG pCO2 58 mmHg (35-45) H 04/29/18 21:47 ABG pO2 84 mmHg (85-104) L 04/29/18 21:47 ABG O2 Saturation 95 % (95-98) 04/29/18 21:47 PT/INR, D-dimer PT 20.2 Seconds (9.4-12.1) H 04/29/18 22:03 Consult Discharge Plan - Plan Referrals: Zackary Hale MD [Primary Care Provider] - <Patrica Waite - Last Filed: 05/03/18 12:06> Date of Encounter: 05/03/18 - Time Spent With Patient Total time spent is greater than 50% in coordination of care (as documented) at patient's floor/unit and/or counseling patient: - Constitutional Vitals: Abnormal lab results RBC 3.69 M/mcL (4.19-5.50) L 05/03/18 03:59 Hgb 11.2 g/dL (12.9-16.9) L 05/03/18 03:59 Hct 37.3 % (37.5-50.1) L 05/03/18 03:59 MCV 101.1 fL (83.0-100.0) H 05/03/18 03:59 MCHC 30.0 g/dL (31.6-35.5) L 05/03/18 03:59 RDW 17.5 % (11.5-14.5) H 05/03/18 03:59 Plt Count 91 K/mcL (140-400) L 05/03/18 03:59 Lymphocytes # 0.5 K/mcL (0.6-4.6) L 05/03/18 03:59 Nucleated RBCs/100 WBC 0.2 /100 WBC (0) H 05/01/18 04:18 PT 20.2 Seconds (9.4-12.1) H 04/29/18 22:03 ABG pCO2 58 mmHg (35-45) H 04/29/18 21:47 ABG pO2 84 mmHg (85-104) L 04/29/18 21:47 ABG HCO3 30 mEq/L (21-27) H 04/29/18 21:47 ABG Total CO2 32 mEq/L (20-26) H 04/29/18 21:47 VBG pH 7.31 pH Units (7.32-7.42) L 04/29/18 15:43 VBG pCO2 54 mmHg (41-51) H 04/29/18 15:43 VBG pO2 155 mmHg (25-50) H 04/29/18 15:43 VBG HCO3 28 mEq/L (21-27) H 04/29/18 15:43 Chloride 96 mEq/L (98-107) L 05/03/18 03:59 Carbon Dioxide 39 mEq/L (23-29) H 05/03/18 03:59 BUN 47 mg/dL (8-23) H 05/03/18 03:59 Creatinine 1.90 mg/dL (0.70-1.30) H 05/03/18 03:59 Est GFR ( Amer) 43 (> 60) L 05/03/18 03:59 Est GFR (Non-Af Amer) 36 (> 60) L 05/03/18 03:59 Glucose 178 mg/dL (70-105) H 05/03/18 03:59 POC Glucose 141 mg/dL (70-99) H 05/03/18 07:18 Calculated Osmolality 307 (280-300) H 05/03/18 03:59 Calcium 8.4 mg/dL (8.6-10.3) L 05/03/18 03:59 Total Bilirubin 1.6 mg/dL (0.3-1.0) H 05/02/18 03:34 Direct Bilirubin 1.0 mg/dL (0.0-0.2) H 05/02/18 03:34 Troponin I 0.07 ng/mL (< 0.04) H* 05/01/18 04:18 C-Reactive Protein 10 mg/L (Less than 10) H 04/29/18 18:03 B-Natriuretic Peptide 2049 pg/mL (Less than 100) H 04/29/18 15:28 Serum Total Protein 5.1 g/dL (6.4-8.9) L 05/02/18 03:34 Albumin 3.0 g/dL (3.5-5.7) L 05/02/18 03:34 Globulin 2.1 g/dL (2.4-3.5) L 05/02/18 03:34 Urine Clarity Cloudy (Clear) A 04/29/18 16:05 Ur Specific [place] 1.008 (1.010-1.025) L 04/29/18 16:05 Urine Protein 30 mg/dL (Neg-Trace) H 04/29/18 16:05 Ur Leukocyte Esterase Trace (Negative) H 04/29/18 16:05 Urine Microscopic WBC 5-15 per hpf (0-3) H 04/29/18 16:05 Ur Squamous Epith Cells Many per lpf (None-Few) H 04/29/18 16:05 Ur Culture Indicated? NO. (NO) A 04/29/18 16:05 Vancomycin Trough 18 mcg/mL (5-10) H 05/01/18 17:00 - Attending Attestation I evaluated and examined patient, and I agree with resident's assessment and plan. was present at the bedside, emotional support provided. Palliative Quality Code Status: 04/29/18 17:31 Resuscitation Status: Active [RES] Routine Comment: Patient does not want to be Intubated. Resuscitation Status: Full Code - Labs CBC & Chem 7: 05/03/18 03:59 05/03/18 03:59 Labs: Laboratory Results - last 24 hr 05/02/18 05/02/18 05/02/18 10:51 16:06 19:58 WBC RBC Hgb Hct MCV MCH MCHC RDW Plt Count MPV Immature Gran % Seg Neutrophils % Lymphocytes % Monocytes % Eosinophils % Basophils % Neutrophils # Lymphocytes # Monocytes # Eosinophils # Basophils # Sodium Potassium Chloride Carbon Dioxide BUN Creatinine Est GFR ( Amer) Est GFR (Non-Af Amer) BUN/Creatinine Ratio Glucose POC Glucose 142 H 135 H 154 H Calculated Osmolality Calcium Phosphorus Magnesium 05/03/18 05/03/18 05/03/18 03:59 03:59 07:18 WBC 7.1 RBC 3.69 L Hgb 11.2 L Hct 37.3 L MCV 101.1 H MCH 30.4 MCHC 30.0 L RDW 17.5 H Plt Count 91 L MPV 10.0 Immature Gran % 0.4 Seg Neutrophils % 82.0 Lymphocytes % 7.2 Monocytes % 9.3 Eosinophils % 1.1 Basophils % 0.0 Neutrophils # 5.8 Lymphocytes # 0.5 L Monocytes # 0.7 Eosinophils # 0.1 Basophils # 0.0 Sodium 140 Potassium 4.0 Chloride 96 L Carbon Dioxide 39 H BUN 47 H Creatinine 1.90 H Est GFR ( Amer) 43 L Est GFR (Non-Af Amer) 36 L BUN/Creatinine Ratio 25 Glucose 178 H POC Glucose 141 H Calculated Osmolality 307 H Calcium 8.4 L Phosphorus 3.8 Magnesium 1.8 - ABG Interpretation ABG results: ABG ABG pH 7.32 pH Units (7.32-7.45) 04/29/18 21:47 ABG pCO2 58 mmHg (35-45) H 04/29/18 21:47 ABG pO2 84 mmHg (85-104) L 04/29/18 21:47 ABG O2 Saturation 95 % (95-98) 04/29/18 21:47 PT/INR, D-dimer PT 20.2 Seconds (9.4-12.1) H 04/29/18 22:03
[2018-05-03] MEDS: Tiotropium 18 MCG inhalation IH SCH (10:10)
[2018-05-03] MEDS: Furosemide 40 MG TABLET PO SCH (10:53)
[2018-05-03] MEDS: Insulin LISPRO 300 UNITS/3 ML VIAL SQ SCH ×4 (10:53→21:20)
[2018-05-03] MEDS: Aspirin Enteric Coated 81 MG Tablet PO SCH (10:53)
[2018-05-03] MEDS: Cholestyramine 4 GM POWD.PACK PO SCH ×2 (10:59→23:38)
[2018-05-03] MEDS: Lactulose Oral Soln 20 GM/30 ML UDC PO SCH ×2 (10:59→23:38)
[2018-05-03] MEDS: Nystatin Cream 15 GM TUBE TP SCH ×3 (13:03→21:20)
--- NOTE | 2018-05-03 17:55 | Internal Med Progress Note ---
Hospitalist Progress Note - Encounter Date of Encounter: 05/03/18 Time of Encounter: 09:30 - Subjective Interval History: patient was seen and examined at bedside. is at bedside all questions answered, denies pain, is drowsy not providing much information. - Exam Vitals: Temp Pulse Resp BP Pulse Ox 98.3 F 115 16 106/66 93 05/03/18 16:07 05/03/18 16:07 05/03/18 16:07 05/03/18 16:07 05/03/18 16:07 Exam: General: Patient is easily arrousable, no acute distress, Head: atraumatic, normocephalic, Eye: normal appearance, PERRL, no scleral icterus, no conjunctival injection ENT: mucous membranes moist, normal external ear exam Neck: normal inspection, trachea midline, Chest: normal inspection, symmetric chest rise Respiratory: decreased breathsounds secondary to body habitus, diminished breathsounds in the right and rales R>L Cardiovascular: Regular rate and rhythm. s1 and s2 Abdomen: Bowel sounds present normoactive x-4 quadrants. Abdomen is soft, nondistended. no Epigastric tenderness. No guarding or rebound. No organomegaly noted, obese musculoskeletal: Spontaneously moving all extremities. Skin: warm, dry, intact.Venous stasis ulcers bilaterally, erythema of left lower extremity cellulitis ( wrapped in kerlex, no signs of bleeding or discharge Neuro: Patient remains alert and oriented 1, is confused, per family this is worse than patient's baseline, not following commands at this time - Assessment and Plan (1) Sepsis Current Visit: Yes Status: Acute Assessment and Plan: Likely secondary to to right-sided pneumonia is visualized on chest CT. Strep pneumonia antigen negative. Legionella antigen pending. Blood cultures NGTD Normalized leukocytosis, afebrile, lactate WNL was transferred to step down from ICU on 05/02 Conservative with fluid resuscitation due to severe heart failure antibiotics deescalated to levaquin on 05/02 by the pulmonology team (2) HCAP (healthcare-associated pneumonia) Current Visit: Yes Status: Acute Assessment and Plan: management as per above (3) Respiratory failure Current Visit: Yes Status: Acute Assessment and Plan: Respiratory failure with hypoxia and hypercapnia in the setting of severe systolic heart failure and health care associated pneumonia. Currently saturating in the 90s on 3L by nasal cannula. Continue BiPAP while sleeping for improved preload and afterload will repeat CXR in the AM if right sided pleural effusion worsening or persistent will consider IR guided therapeutic and diagnostic thoracocentesis (4) Pleural effusion, right Current Visit: Yes Status: Acute Assessment and Plan: will repeat CXR in the AM if right sided pleural effusion worsening or persistent will consider IR guided therapeutic and diagnostic thoracocentesis NPO at midight will continue gentle diuresis (5) 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 Current Visit: No Status: Acute Assessment and Plan: HFrEF as below was started on lasix 40 mg BID by the ICU team - will decrease it to 20 BID as he is more tachycardic and borderline hypotensive will continue to monitor I/O will consider starting BB once respiratory status and BP are more stabilized will consult cardiology TTE in 02/2018- LVEF 20-25%. Severely dilated left ventricle. LV apex is not well visualized on this study. Definity echo contrast was not used. RV is mildly dilated by basal dimension. Grossly it demonstrates moderate to severe reduction in function. Consider repeat limited study with imaging enhancement for better visualization of the LV apex. (6) COPD (chronic obstructive pulmonary disease) Current Visit: No Status: Chronic Assessment and Plan: Saturating well on 4L NC, continue BiPAP at night and while sleeping. Nebulizer albuterol available when necessary (7) Altered mental status Current Visit: Yes Status: Acute Assessment and Plan: Head CT on 04/29 did not reveal acute intracranial abnormality No significant metabolic abnormalities present We will continue treatment of pneumonia and comorbidities which may be contributing to his altered mental status, patient may have some underlying dementia. resume home antipsychotic avoid benzos (8) Acute on chronic renal failure Current Visit: No Status: Acute Assessment and Plan: RANDA at admission with serum creatinine of 2.31 now 1.90. trending down We will continue to monitor especially in the setting of gentle diuresis. Will use caution with regard to fluid resuscitation due to patient's severe heart failure (9) Cellulitis Current Visit: Yes Status: Acute Assessment and Plan: Chronic venous stasis and multiple oozing ulcers on bilateral lower extremities are present. Abx deescalated by ICU team Continue with daily wound care for venous stasis ulcers. (10) Diabetes Current Visit: No Status: Chronic Assessment and Plan: Low-dose corrective sliding scale (11) Obesity Current Visit: No Status: Chronic Assessment and Plan: nutrition consult (12) DVT prophylaxis Current Visit: No Status: Chronic Assessment and Plan: heparin sc (13) Advance care planning Current Visit: Yes Status: Acute Assessment and Plan: Patient was discharged from [facility] approximately one week ago, at which time he was enrolled in hospice. it was revoked by on ths admission palliative was consulted as prognosis remains poor I discussed this also Patient is still full code at this time. - Time Spent with Patient Total time spent is greater than 50% in coordination of care (as documented) at patient's floor/unit and/or counseling patient: Internal Medicine: Result - Labs CBC & Chem 7: 05/03/18 03:59 05/03/18 03:59 Labs: Short CBC 05/03/18 Range/Units 03:59 WBC 7.1 (4.3-11.1) K/mcL Hgb 11.2 L (12.9-16.9) g/dL Hct 37.3 L (37.5-50.1) % Plt Count 91 L (140-400) K/mcL Neutrophils # 5.8 (1.6-8.9) K/mcL BMP 05/03/18 03:59 Sodium 140 Potassium 4.0 Chloride 96 L Carbon Dioxide 39 H BUN 47 H Creatinine 1.90 H Glucose 178 H Calcium 8.4 L - ABG Interpretation ABG results: ABG ABG pH 7.32 pH Units (7.32-7.45) 04/29/18 21:47 ABG pCO2 58 mmHg (35-45) H 04/29/18 21:47 ABG pO2 84 mmHg (85-104) L 04/29/18 21:47 ABG O2 Saturation 95 % (95-98) 04/29/18 21:47 PT/INR, D-dimer PT 20.2 Seconds (9.4-12.1) H 04/29/18 22:03 Consult Discharge Plan - Plan Referrals: Alexia,Zackary Barth MD [Primary Care Provider] - (1) Sepsis Qualifiers: Sepsis type: sepsis due to unspecified organism Qualified Code(s): A41.9 - Sepsis, unspecified organism (3) Respiratory failure Qualifiers: Chronicity: acute Respiratory failure complication: hypoxia Qualified Code(s ): J96.01 - Acute respiratory failure with hypoxia (6) COPD (chronic obstructive pulmonary disease) 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 - Other emphysema (7) Altered mental status Qualifiers: Altered mental status type: unspecified Qualified Code(s): R41.82 - Altered mental status, unspecified (8) Acute on chronic renal failure Qualifiers: Acute renal failure type: unspecified Chronic kidney disease stage: stage 3 ( moderate) Qualified Code(s): N17.9 - Acute kidney failure, unspecified; N18.3 - Chronic kidney disease, stage 3 (moderate) (9) Cellulitis Qualifiers: Site of cellulitis: extremity Site of cellulitis of extremity: lower extremity Laterality: unspecified laterality Qualified Code(s): L03.119 - Cellulitis of unspecified part of limb (10) Diabetes Qualifiers: Diabetes mellitus type: type 2 Diabetes mellitus care home insulin use: without test architect use Diabetes mellitus complication status: without complication Qualified Code(s): E11.9 - Type 2 diabetes mellitus without complications (11) Obesity Qualifiers: Obesity type: due to excess calories Obesity classification: adult class 3 ( BMI >= 40) Serious obesity comorbidity presence: without serious comorbidity Body mass index: BMI 40.0-44.9 Qualified Code(s): E66.01 - Morbid (severe) obesity due to excess calories; Z68.41 - Body mass index (BMI) 40.0-44.9, adult
[2018-05-03] MEDS ORDERED: Levofloxacin 750 MG/150 ML 750 MG/150 ML BAG IVPB SCH (19:00)
--- NOTE | 2018-05-03 20:38 | Event Note ---
Date of Encounter: 05/03/18 Time of Encounter: 20:00 bravo was seen at bedside, resting comfortable on BIPAP family at bedside - I discussed plan of care adn we discussed goals of care again at bedside. would like patient to be full code for now VS reviewed HR is in the 90s and BP 93/62 , saturating 95% on bipap General: Patient is easily arrousable, no acute distress, Chest: normal inspection, symmetric chest rise Respiratory: decreased breathsounds secondary to body habitus, diminished breathsounds in the right and rales R>L Cardiovascular: Regular rate and rhythm. s1 and s2 Abdomen: Bowel sounds present normoactive x-4 quadrants. Abdomen is soft, nondistended. no Epigastric tenderness. No guarding or rebound. No organomegaly noted, obese musculoskeletal: Spontaneously moving all extremities. will continue present management family will have discussion in regards to code status understanding that his prognosis
[2018-05-03] MEDS ORDERED: Furosemide 20 MG/2 ML VIAL IVP SCH (21:00)
[2018-05-03] MEDS: Furosemide 20 MG/2 ML VIAL IVP SCH (21:21)
[2018-05-03] MEDS: Levalbuterol Neb 0.63 MG/3 ML IH SCH (21:34)
[2018-05-03] MEDS: Melatonin 3 MG TABLET PO PRN (23:38)
[2018-05-03] MEDS: Perphenazine 8 MG TABLET PO SCH (23:39)
[2018-05-04] MEDS: Levalbuterol Neb 0.63 MG/3 ML IH SCH ×4 (04:03→21:11)
[2018-05-04] MEDS: *HR* Heparin 5,000 UNIT/ML VIAL SQ SCH (05:01)
[2018-05-04] MEDS ORDERED: Ondansetron 4 MG/2 ML VIAL ONE (06:31)
[2018-05-04 06:51] LABS: Hematocrit 38.9 % (37.5-50.1)
[2018-05-04 06:53] LABS: Hemoglobin 11.4 g/dL (12.9-16.9); Immature Platelets 4.9 % (1.1-6.1); Mean Corpuscular HGB Conc 29.3 g/dL (31.6-35.5); Mean Corpuscular Hemoglobin 30.2 pg (28.0-33.3); Mean Corpuscular Volume 102.9 fL (83.0-100.0); Mean Platelet Volume 10.1 fL (9.4-12.4); Red Blood Count 3.78 M/mcL (4.19-5.50); Red Cell Distribution Width 17.5 % (11.5-14.5)
[2018-05-04 07:15] LABS: Calcium 8.8 mg/dL (8.6-10.3); Magnesium 1.9 mg/dL (1.6-2.6); Phosphorous 3.3 mg/dL (2.7-4.5); Potassium 4.3 mEq/L (3.5-5.1)
[2018-05-04] MEDS: Insulin LISPRO 300 UNITS/3 ML VIAL SQ SCH ×4 (07:56→20:57)
[2018-05-04] MEDS: Lactulose Oral Soln 20 GM/30 ML UDC PO SCH ×2 (08:55→20:40)
[2018-05-04] MEDS: Aspirin Enteric Coated 81 MG Tablet PO SCH (08:56)
[2018-05-04] MEDS: Cholestyramine 4 GM POWD.PACK PO SCH ×2 (08:56→20:40)
[2018-05-04] MEDS: Furosemide 20 MG/2 ML VIAL IVP SCH (08:57)
[2018-05-04] MEDS: Tiotropium 18 MCG inhalation IH SCH (08:57)
[2018-05-04] MEDS: Nystatin Cream 15 GM TUBE TP SCH ×2 (08:59→20:57)
--- NOTE | 2018-05-04 09:38 | Electrocardiograph Report ---
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
--- NOTE | 2018-05-04 10:26 | Cardiology Consult Note ---
<Sammi Childs - Last Filed: 05/04/18 10:47> Date of Encounter: 05/04/18 Time of Encounter: 08:30 Assessment and Plan (1) Sepsis Current Visit: Yes Status: Acute Per cardiology: -Admitted with sepsis, pneumonia. -ON ATB. -Management per primary service. 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 Suspect possible fluid/dietary non-compliance. -BNP . Chest x-ray admission with bilateral pleural effusions. X-ray today with somewhat stable pleural effusions. -On IV lasix per primary service. -Has been diuresed > 10L. Near euvolemic on exam and no significant change in pleural effusion. -Hx of ICMP. last LHC at [facility] 03/2017--s/p high risk PCI to prox and mid LAD and PTCA of diag, and PCI to the OM. -TTE 01/2018 with EF 20-25%, severely dilated LV. [place] not well visualized. Moderatley reduced RV function. -Repeat TTE 01/2018 shows EF 20-25%, global systolic dysfunction and no LV thrombus. -Was on BB, now held due to hypotension. Previously on shwetha inhibitor, now off due to hypotension and RANDA. -Has AICD, denies ICD shocks. -Will switch lasix to oral. Can consider evaluation for thoracentesis for pleural effusion. -Consider restarting BB as BP will allow. Consider shwetha inhibitor if BP will allow and if renal function improves. (3) Atrial flutter Current Visit: Yes Status: Acute Per cardiology: -ECG with new onset a.flutter. -Average HR previous 12 hours noted to be 109, a.flutter. -Not on any AV tony blockers due to hypotension. -[id number] score 5 (age, HTN, CHF, vascular disease, DM). Not currently on anticoagulation. Had been on coumadin previously for LV thrombus, concern for non-compliance due to labile INRs. -Of note, on asa, plavix due to CAD. Last PCI 03/2017. -Platelets are down trending, today 81, on admission platelets were 181. -Will attempt to add toprol for rate control, if BP will allow. -Will further decide custodial anticoagulation pending clinical course. Can consider hematology consult. Qualifiers: Atrial flutter type: unspecified Qualified Code(s): I48.92 - Unspecified atrial flutter (4) Acute kidney injury Current Visit: Yes Status: Acute Per cardiology: -RANDA noted on admission, improving today. -Management per primary service. (5) CAD (coronary artery disease) Current Visit: No Status: Chronic Per cardiology: -Known CAD s/p PCI 03/2017 at [facility]. -Had repeat stress test [facility] which was abnormal, however thought to be due to known disease. Qualifiers: Coronary Disease-Associated Artery/Lesion type: resighini artery [place] vs. transplanted heart: resighini heart Associated angina: without angina Qualified Code(s): I25.10 - Atherosclerotic heart disease of resighini coronary artery without angina pectoris Discussion w patient/family: The assessment and plan as outlined above was discussed with the patient and/or family members who expressed understanding and agreement. All questions were answered. Thank you for involving us in the care of your patient. Please call with any questions. Discussed and reviewed with . History of Present Illness Consult date: 05/03/18 Requesting physician: Jeanette Scott Consult reason: CHF Chief complaint: AMS History of present illness: Mr. Emmanuel is a 63 year old male with a relevant past medical history of bi- ventricular heart failure, AICD, non-sustained VT, CAD, [place] s/p PCI, HTN, DM who presented to [facility] due to family's concern for altered mental status. Patient has been diagnosed with sepsis, pneumonia, RANDA. Cardiology has been consulted for CHF. Patient is alert and confused in room. Patient is not answering questions appropriately, responds "yes" to anything he was asked. at bedside states he is looking much better than upon admission. Past Med Surg Social Fam HX - Past Medical History Attestation: Yes The following information was validated with the patient. Source: patient, old records reviewed, obtained from family Medical history: cancer, cardiomyopathy, COPD, coronary artery disease, diabetes , hyperlipidemia, hypertension, myocardial infarction, other Additional medical history: pancreatitis. short-term memory problems Psychiatric history: no psych history - Past Surgical History Surgical History: angioplasty/stent, cataract, herniorrhaphy, other Additional surgical history: x3 stents - Social History Smoking Status: Current every day smoker Packs per day: 1.5 Smokeless Tobacco Status: No Alcohol use: none Drug use: none - Family History Father History Unknown: Yes Adopted: No Living Status: Hx Family Cardiac Disorders: No Hx Family Respiratory Disorders: Yes Hx Family Cancer: Yes Hx Family GI Disorders: No Hx Family Endocrine Disorder: No Hx Family Neuromuscular Disorders: No Hx Family Neurologic Disorders: No Hx Family HEENT Disorders: No Hx Family Autoimmune Disorders: No Mother History Unknown: Yes Adopted: No Family Member Ethnicity: Non- Living Status: Hx Family Cardiac Disorders: No Hx Family Respiratory Disorders: Yes Hx Family Cancer: Yes Hx Family GI Disorders: No Hx Family Endocrine Disorder: Yes Hx Family Neuromuscular Disorders: No Hx Family Neurologic Disorders: No Hx Family HEENT Disorders: No Hx Family Autoimmune Disorders: No Medications and Allergies Albuterol Sulfate [Albuterol Inhaler] 2 puff IH Q4HR PRN 05/17/15 [History] Ezetimibe [Zetia] 10 mg PO DAILY 05/17/15 [History] Metformin HCl [Glucophage] 1,000 mg PO BID 05/17/15 [History] Tiotropium [Spiriva] 18 mcg IH DAILY 05/17/15 [History] Clopidogrel [Plavix] 75 mg PO DAILY 10/27/17 [History] Lisinopril [Zestril] 2.5 mg PO DAILY PRN 10/27/17 [History] Metoprolol Succinate [Toprol Xl] 25 mg PO DAILY 10/27/17 [History] Lipase/Protease/Amylase [Creon Dr 12,000 Units Capsule] 1 cap PO BIDWM 11/10/17 [History] Cholestyramine 4 g PO BID 01/24/18 [History] Perphenazine [Trilafon] 8 mg PO HS 01/24/18 [History] Tamsulosin [Flomax] 0.4 mg PO DAILY #30 capsule 02/04/18 [Rx] Bacitracin OINT [Ak-Tracin] 1 appl TP BID 30 Days #1 tube 03/23/18 [Rx] Nystatin Cream [Mycostatin Cream] 1 appl TP BID 30 Days #1 tube 03/23/18 [Rx] Aspirin [Lo-Dose Aspirin EC] 81 mg PO DAILY 04/09/18 [History] Furosemide [Lasix] 40 mg PO BID 04/09/18 [History] Lactulose 20 gm PO BID #60 c 04/14/18 [Rx] 3 Allergy/AdvReac Type Severity Reaction Status Date / Time loxapine [From Loxitane] Allergy See Verified 04/16/18 10:55 Comments betamethasone AdvReac Hives Verified 04/16/18 10:55 [From Lotrisone] clotrimazole [From Lotrisone] AdvReac Hives Verified 04/16/18 10:55 Sulfa (Sulfonamide AdvReac Hives Verified 04/16/18 10:55 Antibiotics) All Systems Review: The remainder of the systems were reviewed and are negative - Cardiovascular Cardiovascular: as per HPI - Neurological Neurological: other (altered mental status) Physical Examination Vital Signs, Last 4 Hours Temp Pulse Resp BP Pulse Ox 05/04/18 06:51 97.8 F 110 18 116/78 98 General: Conversant, No Apparent Distress HEENT: Atraumatic, Normocephaly, Mucus Membranes Moist Neck: No JVD, Normal carotid pulses Cardiac: Normal S1 and S2, No Murmur, Other (Regularly irregular) Lungs: Other (Patient refused respiratory assessment. ) Neuro: Other (Alert, confused. Does not respond appropriately to questions. ) Abdomen: Soft, Non-Tender Skin: Other (Bilateral lower extremities with multiple scabbed areas. ) Extremities: No Clubbing, No Cyanosis, No Edema, Normal Pulses Results 05/04/18 06:25 05/04/18 06:25 Lab Results Impressions Chest X-Ray 05/04/18 05:00 IMPRESSION: Moderate right effusion, not substantially changed. Multifocal airspace disease, not significantly changed.. D/ / Ronal Moss MD / Ronal Moss MD Interpreting Provider: Ronal Moss MD Active Medications Lipase/Protease/Amylase (Creon Dr 6,000 Units Capsule) 2 each PO BIDWM [facility] Stop: 11/01/18 17:01 Last Admin: 05/04/18 08:56 Dose: 2 each Aspirin (Aspirin Ec) 81 mg PO DAILY [facility] Stop: 11/02/18 09:01 Last Admin: 05/04/18 08:56 Dose: 81 mg Bacitracin (Ak-Tracin) 1 appl TP BID [facility] Stop: 11/01/18 21:01 Last Admin: 05/04/18 08:59 Dose: 1 appl Cholestyramine Resin (Cholestyramine) 4 gm PO BID [facility] Stop: 11/01/18 21:01 Last Admin: 05/04/18 08:56 Dose: 4 gm Clopidogrel Bisulfate (Plavix) 75 mg PO DAILY [facility] Stop: 11/02/18 09:01 Last Admin: 05/04/18 08:56 Dose: 75 mg Dextrose/Water (Dextrose 50% (Syg)) 25 ml IVP AD PRN PRN Reason: Hypoglycemia Stop: 10/29/18 17:40 Furosemide (Lasix) 20 mg IVP BIDDIURETIC [facility] Stop: 11/02/18 21:01 Last Admin: 05/04/18 08:57 Dose: 20 mg Glucagon (Glucagen) 1 mg IM ONCE PRN PRN Reason: Hypoglycemia Stop: 10/29/18 17:40 Glucose (Gluctose) 15 gm PO ONCE PRN PRN Reason: Hypoglycemia Stop: 10/29/18 17:40 Glucose (Gluctose) 30 gm PO ONCE PRN PRN Reason: Hypoglycemia Stop: 10/29/18 17:40 Heparin Sodium (Porcine) (Heparin) 5,000 unit SQ Q12HCO [facility] Stop: 10/29/18 18:01 Last Admin: 05/04/18 05:01 Dose: 5,000 unit Dextrose (Dextrose 5%) 1,000 mls @ 100 mls/hr IVC .Q10H PRN PRN Reason: HYPOGLYCEMIA Stop: 10/29/18 17:40 Levofloxacin/Dextrose (Levaquin Premix 750mg/150 Ml) 750 mg in 150 mls @ 100 mls/hr IVPB Q48H [facility] PRN Reason: Protocol Stop: 10/29/18 19:01 Last Admin: 05/03/18 19:39 Dose: 100 mls/hr Insulin Human Lispro (Humalog) 0 units SQ TIDAC [facility] PRN Reason: Protocol Stop: 11/02/18 07:31 Last Admin: 05/04/18 07:56 Dose: Not Given Insulin Human Lispro (Humalog) 0 units SQ HS [facility] PRN Reason: Protocol Stop: 11/01/18 21:01 Last Admin: 05/03/18 21:20 Dose: Not Given Lactulose (Lactulose) 20 gm PO BID [facility] Stop: 11/01/18 21:01 Last Admin: 05/04/18 08:55 Dose: 20 gm Levalbuterol HCl (Xopenex) 0.63 mg IH [id number] [facility] Stop: 11/02/18 22:01 Last Admin: 05/04/18 04:03 Dose: 0.63 mg Melatonin (Melatonin) 6 mg PO HS PRN PRN Reason: Insomnia Stop: 10/31/18 20:33 Last Admin: 05/03/18 23:38 Dose: 6 mg Naloxone HCl (Narcan) 0.4 mg IVP Q2MIN PRN PRN Reason: SEE COMMENTS Stop: 10/29/18 17:32 Nystatin (Mycostatin Cream) 1 appl TP BID [facility] Stop: 11/01/18 21:01 Last Admin: 05/04/18 08:59 Dose: 1 appl Perphenazine (Trilafon) 8 mg PO HS [facility] Stop: 11/01/18 21:01 Last Admin: 05/03/18 23:39 Dose: 8 mg Tiotropium [place] (Spiriva) 18 mcg IH DAILY [facility] Stop: 11/02/18 09:01 Last Admin: 05/04/18 08:57 Dose: 18 mcg Laboratory Tests 04/30/18 05/04/18 05/04/18 04:07 06:25 06:25 Hgb 11.4 L Plt Count 81 L Potassium 4.3 Creatinine 2.39 H 1.83 H Magnesium 1.9 - Imaging and Cardiology Chest Xray: report reviewed Stress Test: report reviewed Echo: report reviewed Cardiac cath: report reviewed - EKG Interpretation EKG results cardiology: personally reviewed (ECG 05/03/18 1855 with a.flutter, HR 108.), other (Telemetry reviewed with average HR previous 12 hours noted to be 109, a.flutter. PVCs noted.) Consult Discharge Plan - Plan Referrals: Zackary Hale MD [Primary Care Provider] - <Ike Elkins - Last Filed: 05/04/18 19:21> Date of Encounter: 05/04/18 Time of Encounter: 15:15 - Attending Attestation I have personally performed a face to face evaluation on this patient. I have reviewed and agree with the care plan. History and Exam by me shows: CC: confusion HPI: Pt admitted through ER with complaints of increased confusion, was found to be in septic shock due to pneumonia, started on IV antibiotics and diuretics for suspected acute on chronic systolic heart failure due to known ischemic cardiomyopathy. He has improved but remains mildly confused. His at bedside reports he has had significant improvement over last 24 hours. He is current pain free, although confused. He has indwelling AICD for VT and prevention of sudden , no symptoms of delivered therapy. PMH: reviewed ROS: reviewed PE: pt seen and examined, agree with findings as documented. IMP/Plan 1. Sepsis, due to pnuemonia, slowly improving 2. Acute confusion, has improved with improvement in oxygenation and hemodynamics. 3. Biventricular heart failure due to ischemic cardiomyopathy, EF 25% average over last several echo studies, with indwelling AICD, no delivered therapies on interogation, better compensated with aggresive diuresis, appears euvolemic, recommend switch to PO lasix, continue to monitor I&Os, 4. A flutter with 2:1 block, is a candidate to resume beta blockade now that blood pressure has recovered. Pt may benefit from systemic anticoagulation, has been on warfarin in the past as primary stroke risk reduction, would recommend a reversible NOAC rather than warfarin. Assessment and Plan Discussion w patient/family: The assessment and plan as outlined above was discussed with the patient and/or family members who expressed understanding and agreement. All questions were answered. Thank you for involving us in the care of your patient. Please call with any questions. History of Present Illness History of present illness: Mr. Emmanuel is a 63 year old male All Systems Review: The remainder of the systems were reviewed and are negative Physical Examination Vital Signs, Last 4 Hours Temp Pulse Resp BP Pulse Ox 05/04/18 16:00 101 05/04/18 15:51 16 96 05/04/18 15:46 97.8 F 89 18 98/66 96 Results 05/04/18 06:25 05/04/18 06:25 Lab Results 05/04/18 05/04/18 06:25 06:25 WBC 7.1 Hgb 11.4 L Hct 38.9 Plt Count 81 L Sodium 141 Potassium 4.3 Chloride 97 L Carbon Dioxide 40 H* BUN 39 H Creatinine 1.83 H Glucose 125 H Calcium 8.8 Magnesium 1.9
--- NOTE | 2018-05-04 10:36 | Palliative Progress Note ---
<Nancy Benton N - Last Filed: 05/04/18 11:49> Date of Encounter: 05/04/18 Time of Encounter: 10:20 - Assessment and plan (1) Goals of care, counseling/discussion Current Visit: Yes Status: Acute Assessment and plan: Discussed with patient's the possibility of trying to schedule a family meeting to discuss goals of care. She provided contact information for the patient's daughter Tavia ([phone]) and his sister Padmaja ([phone]). Family meeting at 2 tomorrow with mom and daughter. She can only come in the evening today because her is working. Sisters should be here sometime today; however, daughter prefers to have the conversation with just her and her mother, as they are the decision-makers. Daughter is open to hospice, but does want him to have therapy. (2) Altered mental status Current Visit: Yes Status: Acute Assessment and plan: Patient reportedly had a good deal of confusion and agitation last night, and reportedly spent much of the night calling out. He was given a dose of seroquel ; however, that reportedly had no effect. He also received a dose of ativan, which was successful in alleviating his agitation. At time of exam this morning , patient is sleeping comfortably, though he is difficult to rouse. Will continue monitoring mental status in cooperation with primary team. I Qualifiers: Altered mental status type: unspecified Qualified Code(s): R41.82 - Altered mental status, unspecified (3) HCAP (healthcare-associated pneumonia) Current Visit: Yes Status: Acute Assessment and plan: CXR performed in the ED demonstrated bilateral pleural effusions that were not present on previous studies. Findings were also significant for new patchy airspace opacities, possibly related to atelectasis, multifocal infiltrates, and /or pulmonary edema. He was started on broad-spectrum antibiotic coverage with zosyn for suspected HCAP due to recent hospitalization. Antibiotic therapy has been deescalated, and patient is currently on levaquin. Will continue antimicrobial therapy per primary team. (4) CHF (congestive heart failure) Current Visit: No Status: Chronic Assessment and plan: Patient has history of CHF, with his last echocardiogram reportedly demonstrating EF ~20%. He is reportedly noncompliant with medical recommendations regarding fluid restriction and diuretic use. While in the hospital, he has been receiving diuresis with IV lasix 40mg BID, with good urine output in response. Patient denies any current respiratory difficulties and appears to be comfortable in bed with his head elevated. Will continue current management per primary team. Qualifiers: Heart failure type: systolic Heart failure chronicity: acute on chronic Qualified Code(s): I50.23 - Acute on chronic systolic (congestive) heart failure (5) COPD exacerbation Current Visit: Yes Status: Acute Assessment and plan: Patient has a chronic history of COPD; however, he does not appear to be having an acute exacerbation at this time. His oxygen saturation has remained WNL on 4L continuous via nasal canula. Plan for continued monitoring of respiratory status and albuterol Q4H PRN. - Time Spent With Patient Total time spent is greater than 50% in coordination of care (as documented) at patient's floor/unit and/or counseling patient: - Subjective Interval history: Mr. Emmanuel is sleeping this morning at the time of evaluation. Nursing staff reports that he was restless overnight, and spent most of the night calling out. He did receive a dose of seroquel and a dose of ativan, and was reportedly able to sleep this morning. Per his primary nurse today, patient is somewhat difficult to rouse today, though he does respond when stimulated. Patient's is present at the bedside and confirms that the patient did have a rough night. She states that she is feeling tired as well, as it is difficult for her to sleep when her is ill. She denies any new concerns about her ' s health at this time. - Constitutional Vitals: Abnormal lab results RBC 3.78 M/mcL (4.19-5.50) L 05/04/18 06:25 Hgb 11.4 g/dL (12.9-16.9) L 05/04/18 06:25 MCV 102.9 fL (83.0-100.0) H 05/04/18 06:25 MCHC 29.3 g/dL (31.6-35.5) L 05/04/18 06:25 RDW 17.5 % (11.5-14.5) H 05/04/18 06:25 Plt Count 81 K/mcL (140-400) L 05/04/18 06:25 Lymphocytes # 0.5 K/mcL (0.6-4.6) L 05/03/18 03:59 Nucleated RBCs/100 WBC 0.2 /100 WBC (0) H 05/01/18 04:18 PT 20.2 Seconds (9.4-12.1) H 04/29/18 22:03 ABG pCO2 58 mmHg (35-45) H 04/29/18 21:47 ABG pO2 84 mmHg (85-104) L 04/29/18 21:47 ABG HCO3 30 mEq/L (21-27) H 04/29/18 21:47 ABG Total CO2 32 mEq/L (20-26) H 04/29/18 21:47 VBG pH 7.31 pH Units (7.32-7.42) L 04/29/18 15:43 VBG pCO2 54 mmHg (41-51) H 04/29/18 15:43 VBG pO2 155 mmHg (25-50) H 04/29/18 15:43 VBG HCO3 28 mEq/L (21-27) H 04/29/18 15:43 Chloride 97 mEq/L (98-107) L 05/04/18 06:25 Carbon Dioxide 40 mEq/L (23-29) H* 05/04/18 06:25 BUN 39 mg/dL (8-23) H 05/04/18 06:25 Creatinine 1.83 mg/dL (0.70-1.30) H 05/04/18 06:25 Est GFR ( Amer) 45 (> 60) L 05/04/18 06:25 Est GFR (Non-Af Amer) 37 (> 60) L 05/04/18 06:25 Glucose 125 mg/dL (70-105) H 05/04/18 06:25 POC Glucose 123 mg/dL (70-99) H 05/03/18 20:08 Calculated Osmolality 303 (280-300) H 05/04/18 06:25 Total Bilirubin 1.6 mg/dL (0.3-1.0) H 05/02/18 03:34 Direct Bilirubin 1.0 mg/dL (0.0-0.2) H 05/02/18 03:34 Troponin I 0.07 ng/mL (< 0.04) H* 05/01/18 04:18 C-Reactive Protein 10 mg/L (Less than 10) H 04/29/18 18:03 B-Natriuretic Peptide 2049 pg/mL (Less than 100) H 04/29/18 15:28 Serum Total Protein 5.1 g/dL (6.4-8.9) L 05/02/18 03:34 Albumin 3.0 g/dL (3.5-5.7) L 05/02/18 03:34 Globulin 2.1 g/dL (2.4-3.5) L 05/02/18 03:34 Urine Clarity Cloudy (Clear) A 04/29/18 16:05 Ur Specific [place] 1.008 (1.010-1.025) L 04/29/18 16:05 Urine Protein 30 mg/dL (Neg-Trace) H 04/29/18 16:05 Ur Leukocyte Esterase Trace (Negative) H 04/29/18 16:05 Urine Microscopic WBC 5-15 per hpf (0-3) H 04/29/18 16:05 Ur Squamous Epith Cells Many per lpf (None-Few) H 04/29/18 16:05 Ur Culture Indicated? NO. (NO) A 04/29/18 16:05 Vancomycin Trough 18 mcg/mL (5-10) H 05/01/18 17:00 Exam: GENERAL: Ill-appearing male sleeping in bed comfortably. He is difficult to rouse, though is responsive to stimuli. HEENT: Atraumatic and normocephalic. Nasal canula in place. CARDIOVASCULAR: Regular rate and rhythm. S1 and S2 present. No murmurs, rubs, or gallops present. RESPIRATORY: Decreased breath sounds bilaterally. No wheezes noted. ABDOMEN: Active bowel sounds x 4 quadrants. Abdomen is distended and soft. EXTREMITIES: Bandages present on bilateral legs. Mild edema present in bilateral LE. Palliative Quality Palliative Quality: Screen for Code Status: Yes, Screen for Goals of Care: Yes, Screen for Pain: Yes, If Pain Regimen Started, Initiate Bowel Regimen: NA, Screen for Nausea/Vomitting: Yes Code Status: 04/29/18 17:31 Resuscitation Status: Active [RES] Routine Comment: Patient does not want to be Intubated. Resuscitation Status: Full Code - Labs CBC & Chem 7: 05/04/18 06:25 05/04/18 06:25 Labs: Laboratory Results - last 24 hr 05/03/18 05/03/18 05/03/18 11:11 16:12 20:08 WBC RBC Hgb Hct MCV MCH MCHC RDW Plt Count MPV Immature Plt Fraction Sodium Potassium Chloride Carbon Dioxide BUN Creatinine Est GFR ( Amer) Est GFR (Non-Af Amer) BUN/Creatinine Ratio Glucose POC Glucose 146 H 147 H 123 H Calculated Osmolality Calcium Phosphorus Magnesium 05/04/18 05/04/18 06:25 06:25 WBC 7.1 RBC 3.78 L Hgb 11.4 L Hct 38.9 MCV 102.9 H MCH 30.2 MCHC 29.3 L RDW 17.5 H Plt Count 81 L MPV 10.1 Immature Plt Fraction 4.9 Sodium 141 Potassium 4.3 Chloride 97 L Carbon Dioxide 40 H* BUN 39 H Creatinine 1.83 H Est GFR ( Amer) 45 L Est GFR (Non-Af Amer) 37 L BUN/Creatinine Ratio 21 Glucose 125 H POC Glucose Calculated Osmolality 303 H Calcium 8.8 Phosphorus 3.3 Magnesium 1.9 - Impressions Impressions Chest X-Ray 05/04/18 05:00 IMPRESSION: Moderate right effusion, not substantially changed. Multifocal airspace disease, not significantly changed.. D/ / Ronal Moss MD / Ronal Moss MD Interpreting Provider: Ronal Moss MD - ABG Interpretation ABG results: ABG ABG pH 7.32 pH Units (7.32-7.45) 04/29/18 21:47 ABG pCO2 58 mmHg (35-45) H 04/29/18 21:47 ABG pO2 84 mmHg (85-104) L 04/29/18 21:47 ABG O2 Saturation 95 % (95-98) 04/29/18 21:47 PT/INR, D-dimer PT 20.2 Seconds (9.4-12.1) H 04/29/18 22:03 Consult Discharge Plan - Plan Referrals: Zackary fonseca MD [Primary Care Provider] - <Patrica Waite - Last Filed: 05/04/18 14:01> Date of Encounter: 05/04/18 - Time Spent With Patient Total time spent is greater than 50% face to face with pt and family, in coordination of care (as documented) at patient's floor/unit and/or counseling patient: Greater than 35 minutes - Constitutional Vitals: Abnormal lab results RBC 3.78 M/mcL (4.19-5.50) L 05/04/18 06:25 Hgb 11.4 g/dL (12.9-16.9) L 05/04/18 06:25 MCV 102.9 fL (83.0-100.0) H 05/04/18 06:25 MCHC 29.3 g/dL (31.6-35.5) L 05/04/18 06:25 RDW 17.5 % (11.5-14.5) H 05/04/18 06:25 Plt Count 81 K/mcL (140-400) L 05/04/18 06:25 Lymphocytes # 0.5 K/mcL (0.6-4.6) L 05/03/18 03:59 Nucleated RBCs/100 WBC 0.2 /100 WBC (0) H 05/01/18 04:18 PT 20.2 Seconds (9.4-12.1) H 04/29/18 22:03 ABG pCO2 58 mmHg (35-45) H 04/29/18 21:47 ABG pO2 84 mmHg (85-104) L 04/29/18 21:47 ABG HCO3 30 mEq/L (21-27) H 04/29/18 21:47 ABG Total CO2 32 mEq/L (20-26) H 04/29/18 21:47 VBG pH 7.31 pH Units (7.32-7.42) L 04/29/18 15:43 VBG pCO2 54 mmHg (41-51) H 04/29/18 15:43 VBG pO2 155 mmHg (25-50) H 04/29/18 15:43 VBG HCO3 28 mEq/L (21-27) H 04/29/18 15:43 Chloride 97 mEq/L (98-107) L 05/04/18 06:25 Carbon Dioxide 40 mEq/L (23-29) H* 05/04/18 06:25 BUN 39 mg/dL (8-23) H 05/04/18 06:25 Creatinine 1.83 mg/dL (0.70-1.30) H 05/04/18 06:25 Est GFR ( Amer) 45 (> 60) L 05/04/18 06:25 Est GFR (Non-Af Amer) 37 (> 60) L 05/04/18 06:25 Glucose 125 mg/dL (70-105) H 05/04/18 06:25 POC Glucose 123 mg/dL (70-99) H 05/03/18 20:08 Calculated Osmolality 303 (280-300) H 05/04/18 06:25 Total Bilirubin 1.6 mg/dL (0.3-1.0) H 05/02/18 03:34 Direct Bilirubin 1.0 mg/dL (0.0-0.2) H 05/02/18 03:34 Troponin I 0.07 ng/mL (< 0.04) H* 05/01/18 04:18 C-Reactive Protein 10 mg/L (Less than 10) H 04/29/18 18:03 B-Natriuretic Peptide 2049 pg/mL (Less than 100) H 04/29/18 15:28 Serum Total Protein 5.1 g/dL (6.4-8.9) L 05/02/18 03:34 Albumin 3.0 g/dL (3.5-5.7) L 05/02/18 03:34 Globulin 2.1 g/dL (2.4-3.5) L 05/02/18 03:34 Urine Clarity Cloudy (Clear) A 04/29/18 16:05 Ur Specific [place] 1.008 (1.010-1.025) L 04/29/18 16:05 Urine Protein 30 mg/dL (Neg-Trace) H 04/29/18 16:05 Ur Leukocyte Esterase Trace (Negative) H 04/29/18 16:05 Urine Microscopic WBC 5-15 per hpf (0-3) H 04/29/18 16:05 Ur Squamous Epith Cells Many per lpf (None-Few) H 04/29/18 16:05 Ur Culture Indicated? NO. (NO) A 04/29/18 16:05 Vancomycin Trough 18 mcg/mL (5-10) H 05/01/18 17:00 - Attending Attestation I performed a history and physical examination of the patient and discussed his management with the resident. I reviewed the residents note and agree with the documented findings and plan of care. 13:15 I met with pt's and pt's sister Padmaja at the bedside. Discussed pt's current clinical condition, trajectory of illness, treatment options and poor prognosis. Pt was found to be having a new pleural effusion today, and primary team decided for thoracenthesis. Risk and benefits of the procedure were reviewed. Family is agreeable. Discussed code status, including complications from intubation and CPR and the reasons it would not be recommended given pt's underlying condition. Padmaja reiterated that pt never wanted to be on machines. decided for DNRCCA and DNI, as they still want pt to be treated. Padmaja believes that pt still wants to lives, and that his is not able to appropriately take care of him at home. She also believes that pt does not want hospice and would like to ultimately return home with services from [facility] Family meeting with pt's daughter Tavia and tomorrow at 14:00. Palliative Quality Palliative Quality: Screen for Code Status: Yes, Screen for Goals of Care: Yes, Screen for Pain: Yes, If Pain Regimen Started, Initiate Bowel Regimen: NA, Screen for Nausea/Vomitting: Yes Code Status: 04/29/18 17:31 Resuscitation Status: Active [RES] Routine Comment: Patient does not want to be Intubated. Resuscitation Status: Full Code - Labs CBC & Chem 7: 05/04/18 06:25 05/04/18 06:25 Labs: Laboratory Results - last 24 hr 05/03/18 05/03/18 05/03/18 11:11 16:12 20:08 WBC RBC Hgb Hct MCV MCH MCHC RDW Plt Count MPV Immature Plt Fraction Sodium Potassium Chloride Carbon Dioxide BUN Creatinine Est GFR ( Amer) Est GFR (Non-Af Amer) BUN/Creatinine Ratio Glucose POC Glucose 146 H 147 H 123 H Calculated Osmolality Calcium Phosphorus Magnesium 05/04/18 05/04/18 06:25 06:25 WBC 7.1 RBC 3.78 L Hgb 11.4 L Hct 38.9 MCV 102.9 H MCH 30.2 MCHC 29.3 L RDW 17.5 H Plt Count 81 L MPV 10.1 Immature Plt Fraction 4.9 Sodium 141 Potassium 4.3 Chloride 97 L Carbon Dioxide 40 H* BUN 39 H Creatinine 1.83 H Est GFR ( Amer) 45 L Est GFR (Non-Af Amer) 37 L BUN/Creatinine Ratio 21 Glucose 125 H POC Glucose Calculated Osmolality 303 H Calcium 8.8 Phosphorus 3.3 Magnesium 1.9 - Impressions Impressions Chest X-Ray 05/04/18 05:00
--- NOTE | 2018-05-04 12:25 | Internal Med Progress Note ---
Hospitalist Progress Note - Encounter Date of Encounter: 05/04/18 Time of Encounter: 09:00 - Subjective Interval History: Patient was seen and examined at bedside Much smaller awake and alert than yesterday. He knows that he is at [facility], identifies ,that I am the doctor does taking care of him. He is not oriented to time and date. As per at bedside his mental status has improved as compared to yesterday. Currently he has no complaints, tolerated by mouth diet, no overnight events, denies pain i discussed the plan of care with and sister at bedside. all questions answers. - Exam Vitals: Temp Pulse Resp BP Pulse Ox 97.5 F L 109 20 109/74 96 05/04/18 12:12 05/04/18 12:12 05/04/18 12:12 05/04/18 12:12 05/04/18 12:12 Exam: General: Patient is easily arousable, no acute distress, was standing by bed side with assistance Head: atraumatic, normocephalic, Eye: normal appearance, PERRL, no scleral icterus, no conjunctival injection ENT: mucous membranes moist, normal external ear exam Neck: normal inspection, trachea midline, Chest: normal inspection, symmetric chest rise Respiratory: decreased breathsounds secondary to body habitus, diminished breathsounds in the right and rales R>L Cardiovascular: Regular rate and rhythm. s1 and s2 Abdomen: Bowel sounds present normoactive x-4 quadrants. Abdomen is soft, nondistended. no Epigastric tenderness. No guarding or rebound. No organomegaly noted, obese musculoskeletal: Spontaneously moving all extremities. Skin: warm, dry, intact.Venous stasis ulcers bilaterally, erythema of left lower extremity cellulitis ( wrapped in kerlex, no signs of bleeding or discharge ) Neuro: Axox2, moves all extremities, was standing by bedside, however unsteady on his feet. CN2-21 intact - Assessment and Plan (1) Sepsis Current Visit: Yes Status: Acute Assessment and Plan: Likely secondary to to right-sided pneumonia is visualized on chest CT. - resolved Strep pneumonia antigen negative. Legionella antigen pending. Blood cultures NGTD Normalized leukocytosis, afebrile, lactate WNL was transferred to step down from ICU on 05/02 Conservative with fluid resuscitation due to severe heart failure antibiotics deescalated to levaquin on 05/02 by the pulmonology team (2) HCAP (healthcare-associated pneumonia) Current Visit: Yes Status: Acute Assessment and Plan: management as per above (3) Respiratory failure Current Visit: Yes Status: Acute Assessment and Plan: Respiratory failure with hypoxia and hypercapnia in the setting of severe systolic heart failure and health care associated pneumonia. Currently saturating in the 90s on 3L by nasal cannula. Continue BiPAP while sleeping for improved preload and afterload CXR on 05/04-Moderate right effusion, not substantially changed. IR consulted for IR guided thoracocentesis (4) Pleural effusion, right Current Visit: Yes Status: Acute Assessment and Plan: CXR repeated on 05/04/18- Moderate right effusion, not substantially changed. NPO for IR guided thoracocentesis will follow results of pleural fluid (5) 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 Current Visit: No Status: Chronic Assessment and Plan: HFrEF as below was started on lasix 40 mg BID by the ICU team - it was decreased to 20mg BID- but he has develoepd metabolic alkalosis most likely secondary to diuretics lasix discontinued on 05/04 started on metoprolol 12.5 mg BID will continue to monitor I/O cardiology consulted will follow recommendations ischemic cardiomyopathy s/p AICD . last LHC at [facility] 03/2017--s/p high risk PCI to prox and mid LAD and PTCA of diag , and PCI to the OM. -TTE 01/2018 with EF 20-25%, severely dilated LV. Vesper not well visualized. Moderately reduced RV function. -Repeat TTE 01/2018 shows EF 20-25%, global systolic dysfunction and no LV thrombus. (6) Atrial flutter Current Visit: Yes Status: Acute Assessment and Plan: chads vasc 5 (age, HTN, CHF, vascular disease, DM). Not currently on anticoagulation.) will discuss with family about Anticoagulation- is high risk for falls. cardiology on board currently on ASA and plavix ( stopped on 05/04 for thrombocytopenia) - Last PCI 03/2017. started on metoprolol 12.5 mg BID ( hold for HR <60 and SBP <90) Platelets are down trending, today 81, on admission platelets were 181- currently on SCDs (7) COPD (chronic obstructive pulmonary disease) Current Visit: No Status: Chronic Assessment and Plan: Saturating well on 4L NC, continue BiPAP at night and while sleeping. xopenex and spiriva (8) Altered mental status Current Visit: Yes Status: Acute Assessment and Plan: mental status has improved on 05/[address] but not time Head CT on 04/29 did not reveal acute intracranial abnormality No significant metabolic abnormalities present We will continue treatment of pneumonia and comorbidities which may be contributing to his altered mental status, patient may have some underlying dementia. resume home antipsychotic avoid benzos (9) Acute on chronic renal failure Current Visit: No Status: Acute Assessment and Plan: RANDA at admission with serum creatinine of 2.31 now 1.83 trending down lasix discontinued secondary to worsening metabolic alkalosis continue strict I/O continue to monitor renal functions (10) Cellulitis Current Visit: Yes Status: Acute Assessment and Plan: Chronic venous stasis and multiple oozing ulcers on bilateral lower extremities are present. Abx deescalated by ICU team Continue with daily wound care for venous stasis ulcers. (11) Diabetes Current Visit: No Status: Chronic Assessment and Plan: Low-dose corrective sliding scale (12) Obesity Current Visit: No Status: Chronic Assessment and Plan: nutrition consult (13) Bicytopenia Current Visit: Yes Status: Acute Assessment and Plan: macrocytic anemia and thrombocytopenia will send b12, LDH platelets were 181 on admission on 04/29- trended down to 103 on 05/01, now 81 heparin SC stopped - started on SCDs for DVT prophylaxis s/p PCI in 03/2017- on DAPT- stopped plavix (will discuss with family) bravo was admitted fro sepsis secondary to HCAP will continue to monitor platelets HIT panel sent ( low probability was on SC heparin) hematology consulted (14) DVT prophylaxis Current Visit: No Status: Chronic Assessment and Plan: SCDs (15) Advance care planning Current Visit: Yes Status: Acute Assessment and Plan: Patient was discharged from [place] approximately one week ago, at which time he was enrolled in hospice. it was revoked by on this admission palliative was consulted as prognosis remains poor I discussed this / daughter and sister also Patient is still full code at this time. - Time Spent with Patient Total time spent is greater than 50% in coordination of care (as documented) at patient's floor/unit and/or counseling patient: Internal Medicine: Result - Labs CBC & Chem 7: 05/04/18 06:25 05/04/18 06:25 Labs: Short CBC 05/04/18 Range/Units 06:25 WBC 7.1 (4.3-11.1) K/mcL Hgb 11.4 L (12.9-16.9) g/dL Hct 38.9 (37.5-50.1) % Plt Count 81 L (140-400) K/mcL BMP 05/04/18 06:25 Sodium 141 Potassium 4.3 Chloride 97 L Carbon Dioxide 40 H* BUN 39 H Creatinine 1.83 H Glucose 125 H Calcium 8.8 - ABG Interpretation ABG results: ABG ABG pH 7.32 pH Units (7.32-7.45) 04/29/18 21:47 ABG pCO2 58 mmHg (35-45) H 04/29/18 21:47 ABG pO2 84 mmHg (85-104) L 04/29/18 21:47 ABG O2 Saturation 95 % (95-98) 04/29/18 21:47 PT/INR, D-dimer PT 20.2 Seconds (9.4-12.1) H 04/29/18 22:03 - Impressions Impressions Chest X-Ray 05/04/18 05:00 IMPRESSION: Moderate right effusion, not substantially changed. Multifocal airspace disease, not significantly changed.. D/ / Ronal Moss MD / Ronal Moss MD Interpreting Provider: Ronal Moss MD Consult Discharge Plan - Plan [facility] [place] [facility] Provider[facility] - (1) Sepsis Qualifiers: Sepsis type: sepsis due to unspecified organism Qualified Code(s): A41.9 - Sepsis, unspecified organism (3) Respiratory failure Qualifiers: Chronicity: acute Respiratory failure complication: hypoxia Qualified Code(s ): J96.01 - Acute respiratory failure with hypoxia (6) Atrial flutter Qualifiers: Atrial flutter type: unspecified Qualified Code(s): I48.92 - Unspecified atrial flutter (7) COPD (chronic obstructive pulmonary disease) 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 - Other emphysema (8) Altered mental status Qualifiers: Altered mental status type: unspecified Qualified Code(s): R41.82 - Altered mental status, unspecified (9) Acute on chronic renal failure Qualifiers: Acute renal failure type: unspecified Chronic kidney disease stage: stage 3 ( moderate) Qualified Code(s): N17.9 - Acute kidney failure, unspecified; N18.3 - Chronic kidney disease, stage 3 (moderate) (10) Cellulitis Qualifiers: Site of cellulitis: extremity Site of cellulitis of extremity: lower extremity Laterality: unspecified laterality Qualified Code(s): L03.119 - Cellulitis of unspecified part of limb (11) Diabetes Qualifiers: Diabetes mellitus type: type 2 Diabetes mellitus assisted insulin use: without terminal gauger supervisor use Diabetes mellitus complication status: without complication Qualified Code(s): E11.9 - Type 2 diabetes mellitus without complications (12) Obesity Qualifiers: Obesity type: due to excess calories Obesity classification: adult class 3 ( BMI >= 40) Serious obesity comorbidity presence: without serious comorbidity Body mass index: BMI 40.0-44.9 Qualified Code(s): E66.01 - Morbid (severe) obesity due to excess calories; Z68.41 - Body mass index (BMI) 40.0-44.9, adult
--- NOTE | 2018-05-04 15:17 | IR Procedure Note ---
Date of procedure: 05/04/18 Consent Obtained: Verbal consent Timeout: Correct patient and procedure verified, Correct site verified, Time out performed, Skin prep completed Local anesthetic: Lidocaine 1% Indications: Right pleural effusion Procedure Performed: Right thoracentesis Was there an itinerant teacher assistant present: No Estimated blood loss (cc): 0 Complications: None; Tolerated procedure well Post Procedure Treatment Plan: Monitor on floor Specimen: To path
[2018-05-04 16:37] LABS: Appearance of Pleural Fl Clear (Clear)
[2018-05-04 16:49] LABS: Glucose,Pleural Fluid 162 mg/dL (No Ref Range); LDH,Pleural Fluid 65 Units/L (No Ref Range); Total Protein,Pleural Fluid < 3.0 g/dL (No Ref Range)
[2018-05-04 17:05] LABS: RBC,Pleural Fluid < 0.002 M/mcL
--- NOTE | 2018-05-04 18:47 | Oncology Inp Consult Note ---
<Mimi Pierce L - Last Filed: 05/05/18 07:09> Date of Encounter: 05/04/18 Time of Encounter: 18:00 Assessment and Plan (1) Bicytopenia Status: Acute Assessment and plan: Multiple comorbidities and recent infection/sepsis likely causes of Anemia/ Thrombocytopenia Macrocytic anemia and thrombocytopenia B12, Folate-replete Iron borderline low in presence of CKD Platelets downtrending since admission 181--->84 Heparin SQ initiated 05/02 when plt count 98--- 05/03 plt 91---05/04 plt 81 4T's score with low suspicion even with account of prior heparin exposure Recommendation for clearance for SQ prophylactic dose of heparin for DVT prophylaxis given patients high risk, 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 Recommend stopping heparin if platelet count drops <50. In regards to residential AC for cardiac measures- If platelet count can be monitored on continued basis and consistent >50, ok with AC if benefits outweigh risk. Patient apparently was on coumadin previously for LV thrombus, stopped secondary to non-compliance and labile INRs, would need further discussion with patient/family in regards to compliance with medication - Data of Consult Patient: new to practice Consult date: 05/04/18 Requesting Physician: Jeanette Scott MD Primary Care Provider: Zackary Hale MD - Consult Narrative Reason for consult: Bicytopenia History of present illness: Mr. Emmanuel is a 63 year old male with history of multiple comorbidities, including CHF s/p AICD, CAD, Diabetes, HTN, COPD and chronic respiratory failure. Mr. Emmanuel had most recently been discharged home with hospice, however, returned to [facility] ER on 04/29/2018 for AMS, decreased urinary output, generalized weakness and poor intake. Patients family revoked hospice, per records there appears to have been a misconception of details related to hospice. Mr. Emmanuel is in ICU stepdown following a stay in ICU for HCAP with sepsis, respiratory failure, severe systolic CHF, AMS, right pleural effusion, acute on chronic renal failure and cellulitis. 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 short-term memory problems Psychiatric history: no psych history - Past Surgical History Surgical History: angioplasty/stent, cataract, herniorrhaphy, other Additional surgical history: x3 stents - Social History Smoking Status: Current every day smoker Packs per day: 1.5 Smokeless Tobacco Status: No Alcohol use: none Drug use: none - Family History Father History Unknown: Yes Adopted: No Living Status: Hx Family Cardiac Disorders: No Hx Family Respiratory Disorders: Yes Hx Family Cancer: Yes Hx Family GI Disorders: No Hx Family Endocrine Disorder: No Hx Family Neuromuscular Disorders: No Hx Family Neurologic Disorders: No Hx Family HEENT Disorders: No Hx Family Autoimmune Disorders: No Mother History Unknown: Yes Adopted: No Family Member Ethnicity: Non- Living Status: Hx Family Cardiac Disorders: No Hx Family Respiratory Disorders: Yes Hx Family Cancer: Yes Hx Family GI Disorders: No Hx Family Endocrine Disorder: Yes Hx Family Neuromuscular Disorders: No Hx Family Neurologic Disorders: No Hx Family HEENT Disorders: No Hx Family Autoimmune Disorders: No Medications and Allergies Albuterol Sulfate [Albuterol Inhaler] 2 puff IH Q4HR PRN 05/17/15 [History] Ezetimibe [Zetia] 10 mg PO DAILY 05/17/15 [History] Metformin HCl [Glucophage] 1,000 mg PO BID 05/17/15 [History] Tiotropium [Spiriva] 18 mcg IH DAILY 05/17/15 [History] Clopidogrel [Plavix] 75 mg PO DAILY 10/27/17 [History] Lisinopril [Zestril] 2.5 mg PO DAILY PRN 10/27/17 [History] Metoprolol Succinate [Toprol Xl] 25 mg PO DAILY 10/27/17 [History] Lipase/Protease/Amylase [Creon Dr 12,000 Units Capsule] 1 cap PO BIDWM 11/10/17 [History] Cholestyramine 4 g PO BID 01/24/18 [History] Perphenazine [Trilafon] 8 mg PO HS 01/24/18 [History] Tamsulosin [Flomax] 0.4 mg PO DAILY #30 capsule 02/04/18 [Rx] Bacitracin OINT [Ak-Tracin] 1 appl TP BID 30 Days #1 tube 03/23/18 [Rx] Nystatin Cream [Mycostatin Cream] 1 appl TP BID 30 Days #1 tube 03/23/18 [Rx] Aspirin [Lo-Dose Aspirin EC] 81 mg PO DAILY 04/09/18 [History] Furosemide [Lasix] 40 mg PO BID 04/09/18 [History] Lactulose 20 gm PO BID #60 udc 04/14/18 [Rx] 3 Allergy/AdvReac Type Severity Reaction Status Date / Time loxapine [From Loxitane] Allergy See Verified 04/16/18 10:55 Comments betamethasone AdvReac Hives Verified 04/16/18 10:55 [From Lotrisone] clotrimazole [From Lotrisone] AdvReac Hives Verified 04/16/18 10:55 Sulfa (Sulfonamide AdvReac Hives Verified 04/16/18 10:55 Antibiotics) ROS unobtainable: due to mental status Oncology - Exam - Constitutional Vitals: Temp Pulse Resp BP Pulse Ox 97.8 F 101 16 98/66 96 05/04/18 15:46 05/04/18 16:00 05/04/18 15:51 05/04/18 15:46 05/04/18 15:51 General appearance: cooperative, no acute distress, obese, no febrile - Head Head exam: Present: atraumatic - ENT ENT exam: Present: mucous membranes moist - Respiratory Respiratory exam: Present: decreased breath sounds. Absent: respiratory distress - Cardiovascular Cardiovascular exam: Present: irregular rhythm - GI/Abdominal GI/Abdominal exam: Present: normal bowel sounds, soft. Absent: tenderness - Additional comments: boo cath - Extremities Exam Additional comments: see skin assessment - Neurological Exam Neurological exam: Present: alert, no focal deficits Additional comments: confused (trying to drink his ice cream through straw), does not answer questions appropriately, oriented to person only - Psychiatric Psychiatric exam: Present: normal mood - Skin Skin exam: Present: dry, normal color, warm Additional comments: wounds to BLE-wrapped in kerlix Oncology - Results Labs: 3 05/04/18 05/04/18 05/04/18 15:49 15:00 15:00 WBC RBC Hgb Hct MCV MCH MCHC RDW Plt Count MPV Immature Gran % Seg Neutrophils % Lymphocytes % Monocytes % Eosinophils % Basophils % Neutrophils # Lymphocytes # Monocytes # Eosinophils # Basophils # Nucleated RBCs/100 WBC Immature Plt Fraction ESR PT INR Sample Site ABG pH ABG pCO2 ABG pO2 ABG HCO3 ABG Total CO2 ABG O2 Saturation ABG Base Excess Sergio Test O2 Delivery Device Blood Gas Modality Inspired O2 PEEP Sodium Potassium Chloride Carbon Dioxide BUN Creatinine Est GFR ( Amer) Est GFR (Non-Af Amer) BUN/Creatinine Ratio Glucose POC Glucose 104 H Calculated Osmolality Lactic Acid Calcium Phosphorus Magnesium Total Bilirubin Direct Bilirubin Indirect Bilirubin AST ALT Alkaline Phosphatase Ammonia Troponin I C-Reactive Protein Serum Total Protein Albumin Globulin Albumin/Globulin Ratio Pleural Fluid Volume 980.0 Pleural Appearance Clear Pleural pH 6.60 Pleural RBC < 0.002 Pleural Tot Nuc Cell 103 Pleural Neutrophils 20.0 Pleural Band Neuts Test Not Performed Pleural Eosinophils Test Not Performed Pleural Basophils Test Not Performed Pleural Lymphocytes % 24.0 Pleural Monocytes % 3.0 Pleural Other Cells % 53.0 Pleural Total Protein < 3.0 Pleural LDH 65 Pleural Glucose 162 Vancomycin Trough 3 05/04/18 05/04/18 05/04/18 12:15 06:55 06:25 WBC RBC Hgb Hct MCV MCH MCHC RDW Plt Count MPV Immature Gran % Seg Neutrophils % Lymphocytes % Monocytes % Eosinophils % Basophils % Neutrophils # Lymphocytes # Monocytes # Eosinophils # Basophils # Nucleated RBCs/100 WBC Immature Plt Fraction ESR PT INR Sample Site ABG pH ABG pCO2 ABG pO2 ABG HCO3 ABG Total CO2 ABG O2 Saturation ABG Base Excess Sergio Test O2 Delivery Device Blood Gas Modality Inspired O2 PEEP Sodium 141 Potassium 4.3 Chloride 97 L Carbon Dioxide 40 H* BUN 39 H Creatinine 1.83 H Est GFR ( Amer) 45 L Est GFR (Non-Af Amer) 37 L BUN/Creatinine Ratio 21 Glucose 125 H POC Glucose 157 H 112 H Calculated Osmolality 303 H Lactic Acid Calcium 8.8 Phosphorus 3.3 Magnesium 1.9 Total Bilirubin Direct Bilirubin Indirect Bilirubin AST ALT Alkaline Phosphatase Ammonia Troponin I C-Reactive Protein Serum Total Protein Albumin Globulin Albumin/Globulin Ratio Pleural Fluid Volume Pleural Appearance Pleural pH Pleural RBC Pleural Tot Nuc Cell Pleural Neutrophils Pleural Band Neuts Pleural Eosinophils Pleural Basophils Pleural Lymphocytes % Pleural Monocytes % Pleural Other Cells % Pleural Total Protein Pleural LDH Pleural Glucose Vancomycin Trough 3 05/04/18 05/03/18 05/03/18 06:25 20:08 16:12 WBC 7.1 RBC 3.78 L Hgb 11.4 L Hct 38.9 MCV 102.9 H MCH 30.2 MCHC 29.3 L RDW 17.5 H Plt Count 81 L MPV 10.1 Immature Gran % Seg Neutrophils % Lymphocytes % Monocytes % Eosinophils % Basophils % Neutrophils # Lymphocytes # Monocytes # Eosinophils # Basophils # Nucleated RBCs/100 WBC Immature Plt Fraction 4.9 ESR PT INR Sample Site ABG pH ABG pCO2 ABG pO2 ABG HCO3 ABG Total CO2 ABG O2 Saturation ABG Base Excess Sergio Test O2 Delivery Device Blood Gas Modality Inspired O2 PEEP Sodium Potassium Chloride Carbon Dioxide BUN Creatinine Est GFR ( Amer) Est GFR (Non-Af Amer) BUN/Creatinine Ratio Glucose POC Glucose 123 H 147 H Calculated Osmolality Lactic Acid Calcium Phosphorus Magnesium Total Bilirubin Direct Bilirubin Indirect Bilirubin AST ALT Alkaline Phosphatase Ammonia Troponin I C-Reactive Protein Serum Total Protein Albumin Globulin Albumin/Globulin Ratio Pleural Fluid Volume Pleural Appearance Pleural pH Pleural RBC Pleural Tot Nuc Cell Pleural Neutrophils Pleural Band Neuts Pleural Eosinophils Pleural Basophils Pleural Lymphocytes % Pleural Monocytes % Pleural Other Cells % Pleural Total Protein Pleural LDH Pleural Glucose Vancomycin Trough 3 05/03/18 05/03/18 05/03/18 11:11 07:18 03:59 WBC RBC Hgb Hct MCV MCH MCHC RDW Plt Count MPV Immature Gran % Seg Neutrophils % Lymphocytes % Monocytes % Eosinophils % Basophils % Neutrophils # Lymphocytes # Monocytes # Eosinophils # Basophils # Nucleated RBCs/100 WBC Immature Plt Fraction ESR PT INR Sample Site ABG pH ABG pCO2 ABG pO2 ABG HCO3 ABG Total CO2 ABG O2 Saturation ABG Base Excess Sergio Test O2 Delivery Device Blood Gas Modality Inspired O2 PEEP Sodium 140 Potassium 4.0 Chloride 96 L Carbon Dioxide 39 H BUN 47 H Creatinine 1.90 H Est GFR ( Amer) 43 L Est GFR (Non-Af Amer) 36 L BUN/Creatinine Ratio 25 Glucose 178 H POC Glucose 146 H 141 H Calculated Osmolality 307 H Lactic Acid Calcium 8.4 L Phosphorus 3.8 Magnesium 1.8 Total Bilirubin Direct Bilirubin Indirect Bilirubin AST ALT Alkaline Phosphatase Ammonia Troponin I C-Reactive Protein Serum Total Protein Albumin Globulin Albumin/Globulin Ratio Pleural Fluid Volume Pleural Appearance Pleural pH Pleural RBC Pleural Tot Nuc Cell Pleural Neutrophils Pleural Band Neuts Pleural Eosinophils Pleural Basophils Pleural Lymphocytes % Pleural Monocytes % Pleural Other Cells % Pleural Total Protein Pleural LDH Pleural Glucose Vancomycin Trough 3 05/03/18 05/02/18 05/02/18 03:59 19:58 16:06 WBC 7.1 RBC 3.69 L Hgb 11.2 L Hct 37.3 L MCV 101.1 H MCH 30.4 MCHC 30.0 L RDW 17.5 H Plt Count 91 L MPV 10.0 Immature Gran % 0.4 Seg Neutrophils % 82.0 Lymphocytes % 7.2 Monocytes % 9.3 Eosinophils % 1.1 Basophils % 0.0 Neutrophils # 5.8 Lymphocytes # 0.5 L Monocytes # 0.7 Eosinophils # 0.1 Basophils # 0.0 Nucleated RBCs/100 WBC Immature Plt Fraction ESR PT INR Sample Site ABG pH ABG pCO2 ABG pO2 ABG HCO3 ABG Total CO2 ABG O2 Saturation ABG Base Excess Sergio Test O2 Delivery Device Blood Gas Modality Inspired O2 PEEP Sodium Potassium Chloride Carbon Dioxide BUN Creatinine Est GFR ( Amer) Est GFR (Non-Af Amer) BUN/Creatinine Ratio Glucose POC Glucose 154 H 135 H Calculated Osmolality Lactic Acid Calcium Phosphorus Magnesium Total Bilirubin Direct Bilirubin Indirect Bilirubin AST ALT Alkaline Phosphatase Ammonia Troponin I C-Reactive Protein Serum Total Protein Albumin Globulin Albumin/Globulin Ratio Pleural Fluid Volume Pleural Appearance Pleural pH Pleural RBC Pleural Tot Nuc Cell Pleural Neutrophils Pleural Band Neuts Pleural Eosinophils Pleural Basophils Pleural Lymphocytes % Pleural Monocytes % Pleural Other Cells % Pleural Total Protein Pleural LDH Pleural Glucose Vancomycin Trough 3 05/02/18 05/02/18 05/02/18 10:51 03:34 03:34 WBC RBC Hgb Hct MCV MCH MCHC RDW Plt Count MPV Immature Gran % Seg Neutrophils % Lymphocytes % Monocytes % Eosinophils % Basophils % Neutrophils # Lymphocytes # Monocytes # Eosinophils # Basophils # Nucleated RBCs/100 WBC Immature Plt Fraction ESR PT INR Sample Site ABG pH ABG pCO2 ABG pO2 ABG HCO3 ABG Total CO2 ABG O2 Saturation ABG Base Excess Sergio Test O2 Delivery Device Blood Gas Modality Inspired O2 PEEP Sodium Potassium Chloride Carbon Dioxide BUN Creatinine Est GFR ( Amer) Est GFR (Non-Af Amer) BUN/Creatinine Ratio Glucose POC Glucose 142 H Calculated Osmolality Lactic Acid Calcium Phosphorus Magnesium Total Bilirubin 1.6 H Direct Bilirubin 1.0 H Indirect Bilirubin 0.6 AST 22 ALT 30 Alkaline Phosphatase 53 Ammonia 39 Troponin I C-Reactive Protein Serum Total Protein 5.1 L Albumin 3.0 L Globulin 2.1 L Albumin/Globulin Ratio 1.4 Pleural Fluid Volume Pleural Appearance Pleural pH Pleural RBC Pleural Tot Nuc Cell Pleural Neutrophils Pleural Band Neuts Pleural Eosinophils Pleural Basophils Pleural Lymphocytes % Pleural Monocytes % Pleural Other Cells % Pleural Total Protein Pleural LDH Pleural Glucose Vancomycin Trough 3 05/02/18 05/02/18 05/01/18 03:34 03:34 22:55 WBC 7.0 RBC 3.85 L Hgb 11.6 L Hct 38.8 MCV 100.8 H MCH 30.1 MCHC 29.9 L RDW 17.9 H Plt Count 98 L MPV 10.0 Immature Gran % 0.4 Seg Neutrophils % 79.9 Lymphocytes % 9.5 Monocytes % 9.6 Eosinophils % 0.6 Basophils % 0.0 Neutrophils # 5.6 Lymphocytes # 0.7 Monocytes # 0.7 Eosinophils # 0.0 Basophils # 0.0 Nucleated RBCs/100 WBC Immature Plt Fraction 3.7 ESR PT INR Sample Site ABG pH ABG pCO2 ABG pO2 ABG HCO3 ABG Total CO2 ABG O2 Saturation ABG Base Excess Sergio Test O2 Delivery Device Blood Gas Modality Inspired O2 PEEP Sodium 141 Potassium 3.7 Chloride 99 Carbon Dioxide 37 H BUN 55 H Creatinine 2.04 H Est GFR ( Amer) 40 L Est GFR (Non-Af Amer) 33 L BUN/Creatinine Ratio 27 H Glucose 75 POC Glucose 80 Calculated Osmolality 306 H Lactic Acid Calcium 8.2 L Phosphorus 4.5 Magnesium 1.9 Total Bilirubin Direct Bilirubin Indirect Bilirubin AST ALT Alkaline Phosphatase Ammonia Troponin I C-Reactive Protein Serum Total Protein Albumin Globulin Albumin/Globulin Ratio Pleural Fluid Volume Pleural Appearance Pleural pH Pleural RBC Pleural Tot Nuc Cell Pleural Neutrophils Pleural Band Neuts Pleural Eosinophils Pleural Basophils Pleural Lymphocytes % Pleural Monocytes % Pleural Other Cells % Pleural Total Protein Pleural LDH Pleural Glucose Vancomycin Trough 3 05/01/18 05/01/18 05/01/18 17:55 17:00 12:06 WBC RBC Hgb Hct MCV MCH MCHC RDW Plt Count MPV Immature Gran % Seg Neutrophils % Lymphocytes % Monocytes % Eosinophils % Basophils % Neutrophils # Lymphocytes # Monocytes # Eosinophils # Basophils # Nucleated RBCs/100 WBC Immature Plt Fraction ESR PT INR Sample Site ABG pH ABG pCO2 ABG pO2 ABG HCO3 ABG Total CO2 ABG O2 Saturation ABG Base Excess Sergio Test O2 Delivery Device Blood Gas Modality Inspired O2 PEEP Sodium Potassium Chloride Carbon Dioxide BUN Creatinine Est GFR ( Amer) Est GFR (Non-Af Amer) BUN/Creatinine Ratio Glucose POC Glucose 74 86 Calculated Osmolality Lactic Acid Calcium Phosphorus Magnesium Total Bilirubin Direct Bilirubin Indirect Bilirubin AST ALT Alkaline Phosphatase Ammonia Troponin I C-Reactive Protein Serum Total Protein Albumin Globulin Albumin/Globulin Ratio Pleural Fluid Volume Pleural Appearance Pleural pH Pleural RBC Pleural Tot Nuc Cell Pleural Neutrophils Pleural Band Neuts Pleural Eosinophils Pleural Basophils Pleural Lymphocytes % Pleural Monocytes % Pleural Other Cells % Pleural Total Protein Pleural LDH Pleural Glucose Vancomycin Trough 18 H 3 05/01/18 05/01/18 04/30/18 04:18 04:18 23:03 WBC 8.1 RBC 3.80 L Hgb 11.6 L Hct 38.2 MCV 100.5 H MCH 30.5 MCHC 30.4 L RDW 17.8 H Plt Count 103 L MPV 10.2 Immature Gran % 0.2 Seg Neutrophils % 80.7 Lymphocytes % 8.3 Monocytes % 9.8 Eosinophils % 0.9 Basophils % 0.1 Neutrophils # 6.5 Lymphocytes # 0.7 Monocytes # 0.8 Eosinophils # 0.1 Basophils # 0.0 Nucleated RBCs/100 WBC 0.2 H Immature Plt Fraction ESR PT INR Sample Site ABG pH ABG pCO2 ABG pO2 ABG HCO3 ABG Total CO2 ABG O2 Saturation ABG Base Excess Sergio Test O2 Delivery Device Blood Gas Modality Inspired O2 PEEP Sodium 139 Potassium 4.0 Chloride 100 Carbon Dioxide 32 H BUN 65 H Creatinine 2.23 H Est GFR ( Amer) 36 L Est GFR (Non-Af Amer) 30 L BUN/Creatinine Ratio 29 H Glucose 88 POC Glucose 89 Calculated Osmolality 306 H Lactic Acid Calcium 8.2 L Phosphorus Magnesium Total Bilirubin Direct Bilirubin Indirect Bilirubin AST ALT Alkaline Phosphatase Ammonia Troponin I 0.07 H* C-Reactive Protein Serum Total Protein Albumin Globulin Albumin/Globulin Ratio Pleural Fluid Volume Pleural Appearance Pleural pH Pleural RBC Pleural Tot Nuc Cell Pleural Neutrophils Pleural Band Neuts Pleural Eosinophils Pleural Basophils Pleural Lymphocytes % Pleural Monocytes % Pleural Other Cells % Pleural Total Protein Pleural LDH Pleural Glucose Vancomycin Trough 3 04/30/18 04/30/18 04/30/18 17:56 11:59 05:52 WBC RBC Hgb Hct MCV MCH MCHC RDW Plt Count MPV Immature Gran % Seg Neutrophils % Lymphocytes % Monocytes % Eosinophils % Basophils % Neutrophils # Lymphocytes # Monocytes # Eosinophils # Basophils # Nucleated RBCs/100 WBC Immature Plt Fraction ESR PT INR Sample Site ABG pH ABG pCO2 ABG pO2 ABG HCO3 ABG Total CO2 ABG O2 Saturation ABG Base Excess Sergio Test O2 Delivery Device Blood Gas Modality Inspired O2 PEEP Sodium Potassium Chloride Carbon Dioxide BUN Creatinine Est GFR ( Amer) Est GFR (Non-Af Amer) BUN/Creatinine Ratio Glucose POC Glucose 88 112 H 120 H Calculated Osmolality Lactic Acid Calcium Phosphorus Magnesium Total Bilirubin Direct Bilirubin Indirect Bilirubin AST ALT Alkaline Phosphatase Ammonia Troponin I C-Reactive Protein Serum Total Protein Albumin Globulin Albumin/Globulin Ratio Pleural Fluid Volume Pleural Appearance Pleural pH Pleural RBC Pleural Tot Nuc Cell Pleural Neutrophils Pleural Band Neuts Pleural Eosinophils Pleural Basophils Pleural Lymphocytes % Pleural Monocytes % Pleural Other Cells % Pleural Total Protein Pleural LDH Pleural Glucose Vancomycin Trough 3 04/30/18 04/30/18 04/30/18 04:07 04:07 04:07 WBC 8.7 RBC 3.64 L Hgb 11.0 L Hct 36.7 L MCV 100.8 H MCH 30.2 MCHC 30.0 L RDW 17.8 H Plt Count 134 L MPV 10.1 Immature Gran % Seg Neutrophils % Lymphocytes % Monocytes % Eosinophils % Basophils % Neutrophils # Lymphocytes # Monocytes # Eosinophils # Basophils # Nucleated RBCs/100 WBC Immature Plt Fraction ESR PT INR Sample Site ABG pH ABG pCO2 ABG pO2 ABG HCO3 ABG Total CO2 ABG O2 Saturation ABG Base Excess Sergio Test O2 Delivery Device Blood Gas Modality Inspired O2 PEEP Sodium 138 Potassium 4.3 Chloride 99 Carbon Dioxide 32 H BUN 74 H Creatinine 2.39 H Est GFR ( Amer) 33 L Est GFR (Non-Af Amer) 27 L BUN/Creatinine Ratio 31 H Glucose 128 H POC Glucose Calculated Osmolality 310 H Lactic Acid 1.4 Calcium 8.2 L Phosphorus 5.7 H Magnesium 2.3 Total Bilirubin Direct Bilirubin Indirect Bilirubin AST ALT Alkaline Phosphatase Ammonia Troponin I C-Reactive Protein Serum Total Protein Albumin Globulin Albumin/Globulin Ratio Pleural Fluid Volume Pleural Appearance Pleural pH Pleural RBC Pleural Tot Nuc Cell Pleural Neutrophils Pleural Band Neuts Pleural Eosinophils Pleural Basophils Pleural Lymphocytes % Pleural Monocytes % Pleural Other Cells % Pleural Total Protein Pleural LDH Pleural Glucose Vancomycin Trough 3 04/29/18 04/29/18 04/29/18 22:57 22:03 22:03 WBC RBC Hgb Hct MCV MCH MCHC RDW Plt Count MPV Immature Gran % Seg Neutrophils % Lymphocytes % Monocytes % Eosinophils % Basophils % Neutrophils # Lymphocytes # Monocytes # Eosinophils # Basophils # Nucleated RBCs/100 WBC Immature Plt Fraction ESR PT INR Sample Site ABG pH ABG pCO2 ABG pO2 ABG HCO3 ABG Total CO2 ABG O2 Saturation ABG Base Excess Sergio Test O2 Delivery Device Blood Gas Modality Inspired O2 PEEP Sodium 135 L Potassium 4.2 Chloride 100 Carbon Dioxide 26 BUN 74 H Creatinine 2.31 H Est GFR ( Amer) 35 L Est GFR (Non-Af Amer) 29 L BUN/Creatinine Ratio 32 H Glucose 146 H POC Glucose 146 H Calculated Osmolality 305 H Lactic Acid 1.8 Calcium 8.4 L Phosphorus Magnesium 2.3 Total Bilirubin 1.4 H Direct Bilirubin 0.8 H Indirect Bilirubin 0.6 AST 49 H ALT 54 H Alkaline Phosphatase 65 Ammonia Troponin I C-Reactive Protein Serum Total Protein 5.7 L Albumin 3.3 L Globulin 2.4 Albumin/Globulin Ratio 1.4 Pleural Fluid Volume Pleural Appearance Pleural pH Pleural RBC Pleural Tot Nuc Cell Pleural Neutrophils Pleural Band Neuts Pleural Eosinophils Pleural Basophils Pleural Lymphocytes % Pleural Monocytes % Pleural Other Cells % Pleural Total Protein Pleural LDH Pleural Glucose Vancomycin Trough 3 04/29/18 04/29/18 04/29/18 22:03 22:03 21:47 WBC 9.6 RBC 3.89 L Hgb 11.8 L Hct 38.9 MCV 100.0 MCH 30.3 MCHC 30.3 L RDW 18.2 H Plt Count 152 MPV 10.4 Immature Gran % 0.5 Seg Neutrophils % 80.5 Lymphocytes % 7.7 Monocytes % 11.2 Eosinophils % 0.0 Basophils % 0.1 Neutrophils # 7.8 Lymphocytes # 0.7 Monocytes # 1.1 Eosinophils # 0.0 Basophils # 0.0 Nucleated RBCs/100 WBC 1.2 H Immature Plt Fraction ESR PT 20.2 H INR 1.8 Sample Site L Radial ABG pH 7.32 ABG pCO2 58 H ABG pO2 84 L ABG HCO3 30 H ABG Total CO2 32 H ABG O2 Saturation 95 ABG Base Excess 2 Sergio Test N/A O2 Delivery Device BiPAP Blood Gas Modality BiLevel Inspired O2 40.0 PEEP 6 Sodium Potassium Chloride Carbon Dioxide BUN Creatinine Est GFR ( Amer) Est GFR (Non-Af Amer) BUN/Creatinine Ratio Glucose POC Glucose Calculated Osmolality Lactic Acid Calcium Phosphorus Magnesium Total Bilirubin Direct Bilirubin Indirect Bilirubin AST ALT Alkaline Phosphatase Ammonia Troponin I C-Reactive Protein Serum Total Protein Albumin Globulin Albumin/Globulin Ratio Pleural Fluid Volume Pleural Appearance Pleural pH Pleural RBC Pleural Tot Nuc Cell Pleural Neutrophils Pleural Band Neuts Pleural Eosinophils Pleural Basophils Pleural Lymphocytes % Pleural Monocytes % Pleural Other Cells % Pleural Total Protein Pleural LDH Pleural Glucose Vancomycin Trough 3 04/29/18 04/29/18 04/29/18 21:26 19:44 19:44 WBC RBC Hgb Hct MCV MCH MCHC RDW Plt Count MPV Immature Gran % Seg Neutrophils % Lymphocytes % Monocytes % Eosinophils % Basophils % Neutrophils # Lymphocytes # Monocytes # Eosinophils # Basophils # Nucleated RBCs/100 WBC Immature Plt Fraction ESR PT INR Sample Site ABG pH ABG pCO2 ABG pO2 ABG HCO3 ABG Total CO2 ABG O2 Saturation ABG Base Excess Sergio Test O2 Delivery Device Blood Gas Modality Inspired O2 PEEP Sodium Potassium Chloride Carbon Dioxide BUN Creatinine Est GFR ( Amer) Est GFR (Non-Af Amer) BUN/Creatinine Ratio Glucose POC Glucose 129 H Calculated Osmolality Lactic Acid 1.8 Calcium Phosphorus Magnesium Total Bilirubin Direct Bilirubin Indirect Bilirubin AST ALT Alkaline Phosphatase Ammonia Troponin I 0.10 H* C-Reactive Protein Serum Total Protein Albumin Globulin Albumin/Globulin Ratio Pleural Fluid Volume Pleural Appearance Pleural pH Pleural RBC Pleural Tot Nuc Cell Pleural Neutrophils Pleural Band Neuts Pleural Eosinophils Pleural Basophils Pleural Lymphocytes % Pleural Monocytes % Pleural Other Cells % Pleural Total Protein Pleural LDH Pleural Glucose Vancomycin Trough 3 04/29/18 04/29/18 18:03 18:03 WBC RBC Hgb Hct MCV MCH MCHC RDW Plt Count MPV Immature Gran % Seg Neutrophils % Lymphocytes % Monocytes % Eosinophils % Basophils % Neutrophils # Lymphocytes # Monocytes # Eosinophils # Basophils # Nucleated RBCs/100 WBC Immature Plt Fraction ESR 3 PT INR Sample Site ABG pH ABG pCO2 ABG pO2 ABG HCO3 ABG Total CO2 ABG O2 Saturation ABG Base Excess Sergio Test O2 Delivery Device Blood Gas Modality Inspired O2 PEEP Sodium Potassium Chloride Carbon Dioxide BUN Creatinine Est GFR ( Amer) Est GFR (Non-Af Amer) BUN/Creatinine Ratio Glucose POC Glucose Calculated Osmolality Lactic Acid Calcium Phosphorus Magnesium Total Bilirubin Direct Bilirubin Indirect Bilirubin AST ALT Alkaline Phosphatase Ammonia Troponin I C-Reactive Protein 10 H Serum Total Protein Albumin Globulin Albumin/Globulin Ratio Pleural Fluid Volume Pleural Appearance Pleural pH Pleural RBC Pleural Tot Nuc Cell Pleural Neutrophils Pleural Band Neuts Pleural Eosinophils Pleural Basophils Pleural Lymphocytes % Pleural Monocytes % Pleural Other Cells % Pleural Total Protein Pleural LDH Pleural Glucose Vancomycin Trough Consult Discharge Plan - Plan Referrals: Zackary Hale MD [Primary Care Provider] - <Tameka Pritchett - Last Filed: 05/05/18 16:16> Date of Encounter: 05/05/18 - Data of Consult Requesting Physician: Jeanette Scott MD Primary Care Provider: Zackary Hale MD - Consult Narrative History of present illness: I examined this patient and my medical decision-making was reviewed with the Advanced Practice Nurse, Mimi Pierce. I agree with the documented findings, disposition and treatment plan as described except to the extent set forth below. Oncology - Exam - Constitutional Vitals: Temp Pulse Resp BP Pulse Ox 98.3 F 107 20 106/80 97 05/05/18 15:56 05/05/18 15:56 05/05/18 16:01 05/05/18 15:56 05/05/18 16:01 Oncology - Results Labs: 3 05/05/18 05/05/18 05/05/18 16:04 07:18 04:21 WBC RBC Hgb Hct MCV MCH MCHC RDW Plt Count MPV Immature Gran % Seg Neutrophils % Lymphocytes % Monocytes % Eosinophils % Basophils % Neutrophils # Lymphocytes # Monocytes # Eosinophils # Basophils # Nucleated RBCs/100 WBC Immature Plt Fraction ESR PT INR Sample Site ABG pH ABG pCO2 ABG pO2 ABG HCO3 ABG Total CO2 ABG O2 Saturation ABG Base Excess Sergio Test O2 Delivery Device Blood Gas Modality Inspired O2 PEEP Sodium Potassium Chloride Carbon Dioxide BUN Creatinine Est GFR ( Amer) Est GFR (Non-Af Amer) BUN/Creatinine Ratio Glucose POC Glucose 134 H 139 H Calculated Osmolality Lactic Acid Calcium Phosphorus Magnesium Total Bilirubin Direct Bilirubin Indirect Bilirubin AST ALT Alkaline Phosphatase Ammonia Lactate Dehydrogenase Troponin I C-Reactive Protein Serum Total Protein Albumin Globulin Albumin/Globulin Ratio Vitamin B12 580 Folate 7.7 Pleural Fluid Volume Pleural Appearance Pleural pH Pleural RBC Pleural Tot Nuc Cell Pleural Neutrophils Pleural Band Neuts Pleural Eosinophils Pleural Basophils Pleural Lymphocytes % Pleural Monocytes % Pleural Other Cells % Pleural Total Protein Pleural LDH Pleural Glucose Vancomycin Trough 3 05/05/18 05/05/18 05/04/18 04:21 04:21 20:42 WBC 7.9 RBC 3.66 L Hgb 11.0 L Hct 37.3 L MCV 101.9 H MCH 30.1 MCHC 29.5 L RDW 17.4 H Plt Count 84 L MPV 10.6 Immature Gran % Seg Neutrophils % Lymphocytes % Monocytes % Eosinophils % Basophils % Neutrophils # Lymphocytes # Monocytes # Eosinophils # Basophils # Nucleated RBCs/100 WBC Immature Plt Fraction 5.1 ESR PT INR Sample Site ABG pH ABG pCO2 ABG pO2 ABG HCO3 ABG Total CO2 ABG O2 Saturation ABG Base Excess Sergio Test O2 Delivery Device Blood Gas Modality Inspired O2 PEEP Sodium 142 Potassium 4.4 Chloride 97 L Carbon Dioxide 36 H BUN 37 H Creatinine 1.73 H Est GFR ( Amer) 48 L Est GFR (Non-Af Amer) 40 L BUN/Creatinine Ratio 21 Glucose 135 H POC Glucose 210 H Calculated Osmolality 305 H Lactic Acid Calcium 9.1 Phosphorus Magnesium Total Bilirubin Direct Bilirubin Indirect Bilirubin AST ALT Alkaline Phosphatase Ammonia Lactate Dehydrogenase 233 Troponin I C-Reactive Protein Serum Total Protein Albumin Globulin Albumin/Globulin Ratio Vitamin B12 Folate Pleural Fluid Volume Pleural Appearance Pleural pH Pleural RBC Pleural Tot Nuc Cell Pleural Neutrophils Pleural Band Neuts Pleural Eosinophils Pleural Basophils Pleural Lymphocytes % Pleural Monocytes % Pleural Other Cells % Pleural Total Protein Pleural LDH Pleural Glucose Vancomycin Trough 3 05/04/18 05/04/18 05/04/18 15:49 15:00 15:00 WBC RBC Hgb Hct MCV MCH MCHC RDW Plt Count MPV Immature Gran % Seg Neutrophils % Lymphocytes % Monocytes % Eosinophils % Basophils % Neutrophils # Lymphocytes # Monocytes # Eosinophils # Basophils # Nucleated RBCs/100 WBC Immature Plt Fraction ESR PT INR Sample Site ABG pH ABG pCO2 ABG pO2 ABG HCO3 ABG Total CO2 ABG O2 Saturation ABG Base Excess Sergio Test O2 Delivery Device Blood Gas Modality Inspired O2 PEEP Sodium Potassium Chloride Carbon Dioxide BUN Creatinine Est GFR ( Amer) Est GFR (Non-Af Amer) BUN/Creatinine Ratio Glucose POC Glucose 104 H Calculated Osmolality Lactic Acid Calcium Phosphorus Magnesium Total Bilirubin Direct Bilirubin Indirect Bilirubin AST ALT Alkaline Phosphatase Ammonia Lactate Dehydrogenase Troponin I C-Reactive Protein Serum Total Protein Albumin Globulin Albumin/Globulin Ratio Vitamin B12 Folate Pleural Fluid Volume 980.0 Pleural Appearance Clear Pleural pH 6.60 Pleural RBC < 0.002 Pleural Tot Nuc Cell 103 Pleural Neutrophils 20.0 Pleural Band Neuts Test Not Performed Pleural Eosinophils Test Not Performed Pleural Basophils Test Not Performed Pleural Lymphocytes % 24.0 Pleural Monocytes % 3.0 Pleural Other Cells % 53.0 Pleural Total Protein < 3.0 Pleural LDH 65 Pleural Glucose 162 Vancomycin Trough 3 05/04/18 05/04/18 05/04/18 12:15 06:55 06:25 WBC RBC Hgb Hct MCV MCH MCHC RDW Plt Count MPV Immature Gran % Seg Neutrophils % Lymphocytes % Monocytes % Eosinophils % Basophils % Neutrophils # Lymphocytes # Monocytes # Eosinophils # Basophils # Nucleated RBCs/100 WBC Immature Plt Fraction ESR PT INR Sample Site ABG pH ABG pCO2 ABG pO2 ABG HCO3 ABG Total CO2 ABG O2 Saturation ABG Base Excess Sergio Test O2 Delivery Device Blood Gas Modality Inspired O2 PEEP Sodium 141 Potassium 4.3 Chloride 97 L Carbon Dioxide 40 H* BUN 39 H Creatinine 1.83 H Est GFR ( Amer) 45 L Est GFR (Non-Af Amer) 37 L BUN/Creatinine Ratio 21 Glucose 125 H POC Glucose 157 H 112 H Calculated Osmolality 303 H Lactic Acid Calcium 8.8 Phosphorus 3.3 Magnesium 1.9 Total Bilirubin Direct Bilirubin Indirect Bilirubin AST ALT Alkaline Phosphatase Ammonia Lactate Dehydrogenase Troponin I C-Reactive Protein Serum Total Protein Albumin Globulin Albumin/Globulin Ratio Vitamin B12 Folate Pleural Fluid Volume Pleural Appearance Pleural pH Pleural RBC Pleural Tot Nuc Cell Pleural Neutrophils Pleural Band Neuts Pleural Eosinophils Pleural Basophils Pleural Lymphocytes % Pleural Monocytes % Pleural Other Cells % Pleural Total Protein Pleural LDH Pleural Glucose Vancomycin Trough 3 05/04/18 05/03/18 05/03/18 06:25 20:08 16:12 WBC 7.1 RBC 3.78 L Hgb 11.4 L Hct 38.9 MCV 102.9 H MCH 30.2 MCHC 29.3 L RDW 17.5 H Plt Count 81 L MPV 10.1 Immature Gran % Seg Neutrophils % Lymphocytes % Monocytes % Eosinophils % Basophils % Neutrophils # Lymphocytes # Monocytes # Eosinophils # Basophils # Nucleated RBCs/100 WBC Immature Plt Fraction 4.9 ESR PT INR Sample Site ABG pH ABG pCO2 ABG pO2 ABG HCO3 ABG Total CO2 ABG O2 Saturation ABG Base Excess Sergio Test O2 Delivery Device Blood Gas Modality Inspired O2 PEEP Sodium Potassium Chloride Carbon Dioxide BUN Creatinine Est GFR ( Amer) Est GFR (Non-Af Amer) BUN/Creatinine Ratio Glucose POC Glucose 123 H 147 H Calculated Osmolality Lactic Acid Calcium Phosphorus Magnesium Total Bilirubin Direct Bilirubin Indirect Bilirubin AST ALT Alkaline Phosphatase Ammonia Lactate Dehydrogenase Troponin I C-Reactive Protein Serum Total Protein Albumin Globulin Albumin/Globulin Ratio Vitamin B12 Folate Pleural Fluid Volume Pleural Appearance Pleural pH Pleural RBC Pleural Tot Nuc Cell Pleural Neutrophils Pleural Band Neuts Pleural Eosinophils Pleural Basophils Pleural Lymphocytes % Pleural Monocytes % Pleural Other Cells % Pleural Total Protein Pleural LDH Pleural Glucose Vancomycin Trough 3 05/03/18 05/03/18 05/03/18 11:11 07:18 03:59 WBC RBC Hgb Hct MCV MCH MCHC RDW Plt Count MPV Immature Gran % Seg Neutrophils % Lymphocytes % Monocytes % Eosinophils % Basophils % Neutrophils # Lymphocytes # Monocytes # Eosinophils # Basophils # Nucleated RBCs/100 WBC Immature Plt Fraction ESR PT INR Sample Site ABG pH ABG pCO2 ABG pO2 ABG HCO3 ABG Total CO2 ABG O2 Saturation ABG Base Excess Sergio Test O2 Delivery Device Blood Gas Modality Inspired O2 PEEP Sodium 140 Potassium 4.0 Chloride 96 L Carbon Dioxide 39 H BUN 47 H Creatinine 1.90 H Est GFR ( Amer) 43 L Est GFR (Non-Af Amer) 36 L BUN/Creatinine Ratio 25 Glucose 178 H POC Glucose 146 H 141 H Calculated Osmolality 307 H Lactic Acid Calcium 8.4 L Phosphorus 3.8 Magnesium 1.8 Total Bilirubin Direct Bilirubin Indirect Bilirubin AST ALT Alkaline Phosphatase Ammonia Lactate Dehydrogenase Troponin I C-Reactive Protein Serum Total Protein Albumin Globulin Albumin/Globulin Ratio Vitamin B12 Folate Pleural Fluid Volume Pleural Appearance Pleural pH Pleural RBC Pleural Tot Nuc Cell Pleural Neutrophils Pleural Band Neuts Pleural Eosinophils Pleural Basophils Pleural Lymphocytes % Pleural Monocytes % Pleural Other Cells % Pleural Total Protein Pleural LDH Pleural Glucose Vancomycin Trough 3 05/03/18 05/02/18 05/02/18 03:59 19:58 16:06 WBC 7.1 RBC 3.69 L Hgb 11.2 L Hct 37.3 L MCV 101.1 H MCH 30.4 MCHC 30.0 L RDW 17.5 H Plt Count 91 L MPV 10.0 Immature Gran % 0.4 Seg Neutrophils % 82.0 Lymphocytes % 7.2 Monocytes % 9.3 Eosinophils % 1.1 Basophils % 0.0 Neutrophils # 5.8 Lymphocytes # 0.5 L Monocytes # 0.7 Eosinophils # 0.1 Basophils # 0.0 Nucleated RBCs/100 WBC Immature Plt Fraction ESR PT INR Sample Site ABG pH ABG pCO2 ABG pO2 ABG HCO3 ABG Total CO2 ABG O2 Saturation ABG Base Excess Sergio Test O2 Delivery Device Blood Gas Modality Inspired O2 PEEP Sodium Potassium Chloride Carbon Dioxide BUN Creatinine Est GFR ( Amer) Est GFR (Non-Af Amer) BUN/Creatinine Ratio Glucose POC Glucose 154 H 135 H Calculated Osmolality Lactic Acid Calcium Phosphorus Magnesium Total Bilirubin Direct Bilirubin Indirect Bilirubin AST ALT Alkaline Phosphatase Ammonia Lactate Dehydrogenase Troponin I C-Reactive Protein Serum Total Protein Albumin Globulin Albumin/Globulin Ratio Vitamin B12 Folate Pleural Fluid Volume Pleural Appearance Pleural pH Pleural RBC Pleural Tot Nuc Cell Pleural Neutrophils Pleural Band Neuts Pleural Eosinophils Pleural Basophils Pleural Lymphocytes % Pleural Monocytes % Pleural Other Cells % Pleural Total Protein Pleural LDH Pleural Glucose Vancomycin Trough 3 05/02/18 05/02/18 05/02/18 10:51 03:34 03:34 WBC RBC Hgb Hct MCV MCH MCHC RDW Plt Count MPV Immature Gran % Seg Neutrophils % Lymphocytes % Monocytes % Eosinophils % Basophils % Neutrophils # Lymphocytes # Monocytes # Eosinophils # Basophils # Nucleated RBCs/100 WBC Immature Plt Fraction ESR PT INR Sample Site ABG pH ABG pCO2 ABG pO2 ABG HCO3 ABG Total CO2 ABG O2 Saturation ABG Base Excess Sergio Test O2 Delivery Device Blood Gas Modality Inspired O2 PEEP Sodium Potassium Chloride Carbon Dioxide BUN Creatinine Est GFR ( Amer) Est GFR (Non-Af Amer) BUN/Creatinine Ratio Glucose POC Glucose 142 H Calculated Osmolality Lactic Acid Calcium Phosphorus Magnesium Total Bilirubin 1.6 H Direct Bilirubin 1.0 H Indirect Bilirubin 0.6 AST 22 ALT 30 Alkaline Phosphatase 53 Ammonia 39 Lactate Dehydrogenase Troponin I C-Reactive Protein Serum Total Protein 5.1 L Albumin 3.0 L Globulin 2.1 L Albumin/Globulin Ratio 1.4 Vitamin B12 Folate Pleural Fluid Volume Pleural Appearance Pleural pH Pleural RBC Pleural Tot Nuc Cell Pleural Neutrophils Pleural Band Neuts Pleural Eosinophils Pleural Basophils Pleural Lymphocytes % Pleural Monocytes % Pleural Other Cells % Pleural Total Protein Pleural LDH Pleural Glucose Vancomycin Trough 3 05/02/18 05/02/18 05/01/18 03:34 03:34 22:55 WBC 7.0 RBC 3.85 L Hgb 11.6 L Hct 38.8 MCV 100.8 H MCH 30.1 MCHC 29.9 L RDW 17.9 H Plt Count 98 L MPV 10.0 Immature Gran % 0.4 Seg Neutrophils % 79.9 Lymphocytes % 9.5 Monocytes % 9.6 Eosinophils % 0.6 Basophils % 0.0 Neutrophils # 5.6 Lymphocytes # 0.7 Monocytes # 0.7 Eosinophils # 0.0 Basophils # 0.0 Nucleated RBCs/100 WBC Immature Plt Fraction 3.7 ESR PT INR Sample Site ABG pH ABG pCO2 ABG pO2 ABG HCO3 ABG Total CO2 ABG O2 Saturation ABG Base Excess Sergio Test O2 Delivery Device Blood Gas Modality Inspired O2 PEEP Sodium 141 Potassium 3.7 Chloride 99 Carbon Dioxide 37 H BUN 55 H Creatinine 2.04 H Est GFR ( Amer) 40 L Est GFR (Non-Af Amer) 33 L BUN/Creatinine Ratio 27 H Glucose 75 POC Glucose 80 Calculated Osmolality 306 H Lactic Acid Calcium 8.2 L Phosphorus 4.5 Magnesium 1.9 Total Bilirubin Direct Bilirubin Indirect Bilirubin AST ALT Alkaline Phosphatase Ammonia Lactate Dehydrogenase Troponin I C-Reactive Protein Serum Total Protein Albumin Globulin Albumin/Globulin Ratio Vitamin B12 Folate Pleural Fluid Volume Pleural Appearance Pleural pH Pleural RBC Pleural Tot Nuc Cell Pleural Neutrophils Pleural Band Neuts Pleural Eosinophils Pleural Basophils Pleural Lymphocytes % Pleural Monocytes % Pleural Other Cells % Pleural Total Protein Pleural LDH Pleural Glucose Vancomycin Trough 3 05/01/18 05/01/18 05/01/18 17:55 17:00 12:06 WBC RBC Hgb Hct MCV MCH MCHC RDW Plt Count MPV Immature Gran % Seg Neutrophils % Lymphocytes % Monocytes % Eosinophils % Basophils % Neutrophils # Lymphocytes # Monocytes # Eosinophils # Basophils # Nucleated RBCs/100 WBC Immature Plt Fraction ESR PT INR Sample Site ABG pH ABG pCO2 ABG pO2 ABG HCO3 ABG Total CO2 ABG O2 Saturation ABG Base Excess Sergio Test O2 Delivery Device Blood Gas Modality Inspired O2 PEEP Sodium Potassium Chloride Carbon Dioxide BUN Creatinine Est GFR ( Amer) Est GFR (Non-Af Amer) BUN/Creatinine Ratio Glucose POC Glucose 74 86 Calculated Osmolality Lactic Acid Calcium Phosphorus Magnesium Total Bilirubin Direct Bilirubin Indirect Bilirubin AST ALT Alkaline Phosphatase Ammonia Lactate Dehydrogenase Troponin I C-Reactive Protein Serum Total Protein Albumin Globulin Albumin/Globulin Ratio Vitamin B12 Folate Pleural Fluid Volume Pleural Appearance Pleural pH Pleural RBC Pleural Tot Nuc Cell Pleural Neutrophils Pleural Band Neuts Pleural Eosinophils Pleural Basophils Pleural Lymphocytes % Pleural Monocytes % Pleural Other Cells % Pleural Total Protein Pleural LDH Pleural Glucose Vancomycin Trough 18 H 3 05/01/18 05/01/18 04/30/18 04:18 04:18 23:03 WBC 8.1 RBC 3.80 L Hgb 11.6 L Hct 38.2 MCV 100.5 H MCH 30.5 MCHC 30.4 L RDW 17.8 H Plt Count 103 L MPV 10.2 Immature Gran % 0.2 Seg Neutrophils % 80.7 Lymphocytes % 8.3 Monocytes % 9.8 Eosinophils % 0.9 Basophils % 0.1 Neutrophils # 6.5 Lymphocytes # 0.7 Monocytes # 0.8 Eosinophils # 0.1 Basophils # 0.0 Nucleated RBCs/100 WBC 0.2 H Immature Plt Fraction ESR PT INR Sample Site ABG pH ABG pCO2 ABG pO2 ABG HCO3 ABG Total CO2 ABG O2 Saturation ABG Base Excess Sergio Test O2 Delivery Device Blood Gas Modality Inspired O2 PEEP Sodium 139 Potassium 4.0 Chloride 100 Carbon Dioxide 32 H BUN 65 H Creatinine 2.23 H Est GFR ( Amer) 36 L Est GFR (Non-Af Amer) 30 L BUN/Creatinine Ratio 29 H Glucose 88 POC Glucose 89 Calculated Osmolality 306 H Lactic Acid Calcium 8.2 L Phosphorus Magnesium Total Bilirubin Direct Bilirubin Indirect Bilirubin AST ALT Alkaline Phosphatase Ammonia Lactate Dehydrogenase Troponin I 0.07 H* C-Reactive Protein Serum Total Protein Albumin Globulin Albumin/Globulin Ratio Vitamin B12 Folate Pleural Fluid Volume Pleural Appearance Pleural pH Pleural RBC Pleural Tot Nuc Cell Pleural Neutrophils Pleural Band Neuts Pleural Eosinophils Pleural Basophils Pleural Lymphocytes % Pleural Monocytes % Pleural Other Cells % Pleural Total Protein Pleural LDH Pleural Glucose Vancomycin Trough 3 04/30/18 04/30/18 04/30/18 17:56 11:59 05:52 WBC RBC Hgb Hct MCV MCH MCHC RDW Plt Count MPV Immature Gran % Seg Neutrophils % Lymphocytes % Monocytes % Eosinophils % Basophils % Neutrophils # Lymphocytes # Monocytes # Eosinophils # Basophils # Nucleated RBCs/100 WBC Immature Plt Fraction ESR PT INR Sample Site ABG pH ABG pCO2 ABG pO2 ABG HCO3 ABG Total CO2 ABG O2 Saturation ABG Base Excess Sergio Test O2 Delivery Device Blood Gas Modality Inspired O2 PEEP Sodium Potassium Chloride Carbon Dioxide BUN Creatinine Est GFR ( Amer) Est GFR (Non-Af Amer) BUN/Creatinine Ratio Glucose POC Glucose 88 112 H 120 H Calculated Osmolality Lactic Acid Calcium Phosphorus Magnesium Total Bilirubin Direct Bilirubin Indirect Bilirubin AST ALT Alkaline Phosphatase Ammonia Lactate Dehydrogenase Troponin I C-Reactive Protein Serum Total Protein Albumin Globulin Albumin/Globulin Ratio Vitamin B12 Folate Pleural Fluid Volume Pleural Appearance Pleural pH Pleural RBC Pleural Tot Nuc Cell Pleural Neutrophils Pleural Band Neuts Pleural Eosinophils Pleural Basophils Pleural Lymphocytes % Pleural Monocytes % Pleural Other Cells % Pleural Total Protein Pleural LDH Pleural Glucose Vancomycin Trough 3 04/30/18 04/30/18 04/30/18 04:07 04:07 04:07 WBC 8.7 RBC 3.64 L Hgb 11.0 L Hct 36.7 L MCV 100.8 H MCH 30.2 MCHC 30.0 L RDW 17.8 H Plt Count 134 L MPV 10.1 Immature Gran % Seg Neutrophils % Lymphocytes % Monocytes % Eosinophils % Basophils % Neutrophils # Lymphocytes # Monocytes # Eosinophils # Basophils # Nucleated RBCs/100 WBC Immature Plt Fraction ESR PT INR Sample Site ABG pH ABG pCO2 ABG pO2 ABG HCO3 ABG Total CO2 ABG O2 Saturation ABG Base Excess Sergio Test O2 Delivery Device Blood Gas Modality Inspired O2 PEEP Sodium 138 Potassium 4.3 Chloride 99 Carbon Dioxide 32 H BUN 74 H Creatinine 2.39 H Est GFR ( Amer) 33 L Est GFR (Non-Af Amer) 27 L BUN/Creatinine Ratio 31 H Glucose 128 H POC Glucose Calculated Osmolality 310 H Lactic Acid 1.4 Calcium 8.2 L Phosphorus 5.7 H Magnesium 2.3 Total Bilirubin Direct Bilirubin Indirect Bilirubin AST ALT Alkaline Phosphatase Ammonia Lactate Dehydrogenase Troponin I C-Reactive Protein Serum Total Protein Albumin Globulin Albumin/Globulin Ratio Vitamin B12 Folate Pleural Fluid Volume Pleural Appearance Pleural pH Pleural RBC Pleural Tot Nuc Cell Pleural Neutrophils Pleural Band Neuts Pleural Eosinophils Pleural Basophils Pleural Lymphocytes % Pleural Monocytes % Pleural Other Cells % Pleural Total Protein Pleural LDH Pleural Glucose Vancomycin Trough 3 04/29/18 04/29/18 04/29/18 22:57 22:03 22:03 WBC RBC Hgb Hct MCV MCH MCHC RDW Plt Count MPV Immature Gran % Seg Neutrophils % Lymphocytes % Monocytes % Eosinophils % Basophils % Neutrophils # Lymphocytes # Monocytes # Eosinophils # Basophils # Nucleated RBCs/100 WBC Immature Plt Fraction ESR PT INR Sample Site ABG pH ABG pCO2 ABG pO2 ABG HCO3 ABG Total CO2 ABG O2 Saturation ABG Base Excess Sergio Test O2 Delivery Device Blood Gas Modality Inspired O2 PEEP Sodium 135 L Potassium 4.2 Chloride 100 Carbon Dioxide 26 BUN 74 H Creatinine 2.31 H Est GFR ( Amer) 35 L Est GFR (Non-Af Amer) 29 L BUN/Creatinine Ratio 32 H Glucose 146 H POC Glucose 146 H Calculated Osmolality 305 H Lactic Acid 1.8 Calcium 8.4 L Phosphorus Magnesium 2.3 Total Bilirubin 1.4 H Direct Bilirubin 0.8 H Indirect Bilirubin 0.6 AST 49 H ALT 54 H Alkaline Phosphatase 65 Ammonia Lactate Dehydrogenase Troponin I C-Reactive Protein Serum Total Protein 5.7 L Albumin 3.3 L Globulin 2.4 Albumin/Globulin Ratio 1.4 Vitamin B12 Folate Pleural Fluid Volume Pleural Appearance Pleural pH Pleural RBC Pleural Tot Nuc Cell Pleural Neutrophils Pleural Band Neuts Pleural Eosinophils Pleural Basophils Pleural Lymphocytes % Pleural Monocytes % Pleural Other Cells % Pleural Total Protein Pleural LDH Pleural Glucose Vancomycin Trough 3 04/29/18 04/29/18 04/29/18 22:03 22:03 21:47 WBC 9.6 RBC 3.89 L Hgb 11.8 L Hct 38.9 MCV 100.0 MCH 30.3 MCHC 30.3 L RDW 18.2 H Plt Count 152 MPV 10.4 Immature Gran % 0.5 Seg Neutrophils % 80.5 Lymphocytes % 7.7 Monocytes % 11.2 Eosinophils % 0.0 Basophils % 0.1 Neutrophils # 7.8 Lymphocytes # 0.7 Monocytes # 1.1 Eosinophils # 0.0 Basophils # 0.0 Nucleated RBCs/100 WBC 1.2 H Immature Plt Fraction ESR PT 20.2 H INR 1.8 Sample Site L Radial ABG pH 7.32 ABG pCO2 58 H ABG pO2 84 L ABG HCO3 30 H ABG Total CO2 32 H ABG O2 Saturation 95 ABG Base Excess 2 Sergio Test N/A O2 Delivery Device BiPAP Blood Gas Modality BiLevel Inspired O2 40.0 PEEP 6 Sodium Potassium Chloride Carbon Dioxide BUN Creatinine Est GFR ( Amer) Est GFR (Non-Af Amer) BUN/Creatinine Ratio Glucose POC Glucose Calculated Osmolality Lactic Acid Calcium Phosphorus Magnesium Total Bilirubin Direct Bilirubin Indirect Bilirubin AST ALT Alkaline Phosphatase Ammonia Lactate Dehydrogenase Troponin I C-Reactive Protein Serum Total Protein Albumin Globulin Albumin/Globulin Ratio Vitamin B12 Folate Pleural Fluid Volume Pleural Appearance Pleural pH Pleural RBC Pleural Tot Nuc Cell Pleural Neutrophils Pleural Band Neuts Pleural Eosinophils Pleural Basophils Pleural Lymphocytes % Pleural Monocytes % Pleural Other Cells % Pleural Total Protein Pleural LDH Pleural Glucose Vancomycin Trough 3 04/29/18 04/29/18 04/29/18 21:26 19:44 19:44 WBC RBC Hgb Hct MCV MCH MCHC RDW Plt Count MPV Immature Gran % Seg Neutrophils % Lymphocytes % Monocytes % Eosinophils % Basophils % Neutrophils # Lymphocytes # Monocytes # Eosinophils # Basophils # Nucleated RBCs/100 WBC Immature Plt Fraction ESR PT INR Sample Site ABG pH ABG pCO2 ABG pO2 ABG HCO3 ABG Total CO2 ABG O2 Saturation ABG Base Excess Sergio Test O2 Delivery Device Blood Gas Modality Inspired O2 PEEP Sodium Potassium Chloride Carbon Dioxide BUN Creatinine Est GFR ( Amer) Est GFR (Non-Af Amer) BUN/Creatinine Ratio Glucose POC Glucose 129 H Calculated Osmolality Lactic Acid 1.8 Calcium Phosphorus Magnesium Total Bilirubin Direct Bilirubin Indirect Bilirubin AST ALT Alkaline Phosphatase Ammonia Lactate Dehydrogenase Troponin I 0.10 H* C-Reactive Protein Serum Total Protein Albumin Globulin Albumin/Globulin Ratio Vitamin B12 Folate Pleural Fluid Volume Pleural Appearance Pleural pH Pleural RBC Pleural Tot Nuc Cell Pleural Neutrophils Pleural Band Neuts Pleural Eosinophils Pleural Basophils Pleural Lymphocytes % Pleural Monocytes % Pleural Other Cells % Pleural Total Protein Pleural LDH Pleural Glucose Vancomycin Trough 3 04/29/18 04/29/18 18:03 18:03 WBC RBC Hgb Hct MCV MCH MCHC RDW Plt Count MPV Immature Gran % Seg Neutrophils % Lymphocytes % Monocytes % Eosinophils % Basophils % Neutrophils # Lymphocytes # Monocytes # Eosinophils # Basophils # Nucleated RBCs/100 WBC Immature Plt Fraction ESR 3 PT INR Sample Site ABG pH ABG pCO2 ABG pO2 ABG HCO3 ABG Total CO2 ABG O2 Saturation ABG Base Excess Sergio Test O2 Delivery Device Blood Gas Modality Inspired O2 PEEP Sodium Potassium Chloride Carbon Dioxide BUN Creatinine Est GFR ( Amer) Est GFR (Non-Af Amer) BUN/Creatinine Ratio Glucose POC Glucose Calculated Osmolality Lactic Acid Calcium Phosphorus Magnesium Total Bilirubin Direct Bilirubin Indirect Bilirubin AST ALT Alkaline Phosphatase Ammonia Lactate Dehydrogenase Troponin I C-Reactive Protein 10 H Serum Total Protein Albumin Globulin Albumin/Globulin Ratio Vitamin B12 Folate Pleural Fluid Volume Pleural Appearance Pleural pH Pleural RBC Pleural Tot Nuc Cell Pleural Neutrophils Pleural Band Neuts Pleural Eosinophils Pleural Basophils Pleural Lymphocytes % Pleural Monocytes % Pleural Other Cells % Pleural Total Protein Pleural LDH Pleural Glucose Vancomycin Trough Inpatient Charges Provider: Dr. Pati Pritchett Follow up - Inpatient: [id number]
[2018-05-04] MEDS: Melatonin 3 MG TABLET PO PRN (20:40)
[2018-05-04] MEDS: Perphenazine 8 MG TABLET PO SCH (20:57)
[2018-05-05] MEDS: Levalbuterol Neb 0.63 MG/3 ML IH SCH ×4 (04:40→22:10)
[2018-05-05 04:41] LABS: Red Cell Distribution Width 17.4 % (11.5-14.5)
[2018-05-05 04:43] LABS: Hematocrit 37.3 % (37.5-50.1); Immature Platelets 5.1 % (1.1-6.1); Mean Corpuscular HGB Conc 29.5 g/dL (31.6-35.5); Mean Corpuscular Hemoglobin 30.1 pg (28.0-33.3); Mean Corpuscular Volume 101.9 fL (83.0-100.0); Mean Platelet Volume 10.6 fL (9.4-12.4); Red Blood Count 3.66 M/mcL (4.19-5.50)
[2018-05-05 05:01] LABS: Calcium 9.1 mg/dL (8.6-10.3); Potassium 4.4 mEq/L (3.5-5.1)
[2018-05-05 05:25] LABS: Folate 7.7 ng/mL (3.0-16.0)
[2018-05-05] MEDS: Furosemide 20 MG TABLET PO SCH ×2 (07:41→16:27)
[2018-05-05] MEDS: Lactulose Oral Soln 20 GM/30 ML UDC PO SCH ×2 (07:42→21:38)
[2018-05-05] MEDS: Cholestyramine 4 GM POWD.PACK PO SCH ×2 (07:42→21:38)
[2018-05-05] MEDS: Aspirin Enteric Coated 81 MG Tablet PO SCH (07:42)
[2018-05-05] MEDS: Tiotropium 18 MCG inhalation IH SCH (07:43)
[2018-05-05] MEDS: Nystatin Cream 15 GM TUBE TP SCH ×2 (07:43→21:40)
[2018-05-05] MEDS: Insulin LISPRO 300 UNITS/3 ML VIAL SQ SCH ×4 (07:44→21:40)
[2018-05-05] MEDS ORDERED: *HR* LORazepam 2 MG/ML VIAL IVP ONE (09:15)
--- NOTE | 2018-05-05 13:52 | Palliative Progress Note ---
<Nancy Benton N - Last Filed: 05/05/18 15:58> Date of Encounter: 05/05/18 Time of Encounter: 13:52 - Assessment and plan (1) Goals of care, counseling/discussion Current Visit: Yes Status: Acute Assessment and plan: Extensive goals of care discussion this afternoon with the patient's , daughter, and son-in-law. The patient's daughter Tavia states that she does not want him to suffer any more than he has already, though she is still praying daily for a miracle. His daughter and both state that they would like to see him return home, and are hesitant to consider the possibility of skilled nursing placement. His daughter and her appear to have a better grasp on the severity of his disease process, and express understanding that he likely does not have much time left. Per the family present at the meeting today, patient was having difficulty breathing that was not being managed at home, which is why the squad was called to bring him to the hospital. They report that he did fall out of bed at one point and was calling for help. Both the patient's and daughter state that they would like to take the patient home on hospice; however, they would like to have the services of the [facility] as well. In light of his multiple admissions at [facility] over the last several weeks, patient's family was recommended to use [facility], as there are inpatient hospice beds available should his symptoms become uncontrollable at home. The family was encouraged to consider skilled nursing placement if the patient's needs continued to increase, in the event that they were martha no longer able to provide care for him themselves. Family voiced understanding. Plan for discharge home with hospice tomorrow. (2) Altered mental status Current Visit: Yes Status: Acute Assessment and plan: Since admission, patient has had persistent confusion and altered mental status. Per reports, he has been quite agitated overnight, and again required supplemental medication, with a dose of ativan given last night. Per nursing staff, patient reacted well to that medication, with good improvement in symptoms. Patient's also reports that she feels he is resting more comfortably at this time. Recommend continued use of ativan 1mg IVP Q6H PRN agitation. Qualifiers: Altered mental status type: unspecified Qualified Code(s): R41.82 - Altered mental status, unspecified (3) CHF (congestive heart failure) Current Visit: No Status: Chronic Assessment and plan: Patient underwent thoracentesis yesterday, with removal of approximately 1 liter of serous fluid. On exam today, he appear to be resting comfortably with no evidence of respiratory discomfort or distress. Recommend continued diuretic therapy with lasix and adherence to fluid-restricted diet. Qualifiers: Heart failure type: systolic Heart failure chronicity: acute on chronic Qualified Code(s): I50.23 - Acute on chronic systolic (congestive) heart failure (4) COPD exacerbation Current Visit: Yes Status: Acute Assessment and plan: Patient has a chronic history of COPD; however, he does not appear to be having an acute exacerbation at this time. His oxygen saturation has remained WNL while on supplemental oxygen therapy via nasal canula. Plan for continued monitoring of respiratory status and albuterol treatments Q4H PRN. (5) HCAP (healthcare-associated pneumonia) Current Visit: Yes Status: Acute Assessment and plan: Mr. Emmanuel is still on azithromycin therapy for presumed HCAP. Plan to continue that medication as directed per primary team. - Time Spent With Patient Total time spent is greater than 50% in coordination of care (as documented) at patient's floor/unit and/or counseling patient: - Subjective Interval history: Mr. Emmanuel is resting comfortably at the time of evaluation today. His reports that she did go home last night and was able to get some rest. Nursing staff reports that the patient remained agitated throughout the evening, and ultimately required ativan for management. He wakes easily today to voice and touch. He continues to display repetitive speech patterns. Family meeting is scheduled for this afternoon with his and daughter. Nursing staff reports no other significant overnight events. - Constitutional Vitals: Abnormal lab results RBC 3.66 M/mcL (4.19-5.50) L 05/05/18 04:21 Hgb 11.0 g/dL (12.9-16.9) L 05/05/18 04:21 Hct 37.3 % (37.5-50.1) L 05/05/18 04:21 MCV 101.9 fL (83.0-100.0) H 05/05/18 04:21 MCHC 29.5 g/dL (31.6-35.5) L 05/05/18 04:21 RDW 17.4 % (11.5-14.5) H 05/05/18 04:21 Plt Count 84 K/mcL (140-400) L 05/05/18 04:21 Lymphocytes # 0.5 K/mcL (0.6-4.6) L 05/03/18 03:59 Nucleated RBCs/100 WBC 0.2 /100 WBC (0) H 05/01/18 04:18 PT 20.2 Seconds (9.4-12.1) H 04/29/18 22:03 ABG pCO2 58 mmHg (35-45) H 04/29/18 21:47 ABG pO2 84 mmHg (85-104) L 04/29/18 21:47 ABG HCO3 30 mEq/L (21-27) H 04/29/18 21:47 ABG Total CO2 32 mEq/L (20-26) H 04/29/18 21:47 VBG pH 7.31 pH Units (7.32-7.42) L 04/29/18 15:43 VBG pCO2 54 mmHg (41-51) H 04/29/18 15:43 VBG pO2 155 mmHg (25-50) H 04/29/18 15:43 VBG HCO3 28 mEq/L (21-27) H 04/29/18 15:43 Chloride 97 mEq/L (98-107) L 05/05/18 04:21 Carbon Dioxide 36 mEq/L (23-29) H 05/05/18 04:21 BUN 37 mg/dL (8-23) H 05/05/18 04:21 Creatinine 1.73 mg/dL (0.70-1.30) H 05/05/18 04:21 Est GFR ( Amer) 48 (> 60) L 05/05/18 04:21 Est GFR (Non-Af Amer) 40 (> 60) L 05/05/18 04:21 Glucose 135 mg/dL (70-105) H 05/05/18 04:21 POC Glucose 210 mg/dL (70-99) H 05/04/18 20:42 Calculated Osmolality 305 (280-300) H 05/05/18 04:21 Total Bilirubin 1.6 mg/dL (0.3-1.0) H 05/02/18 03:34 Direct Bilirubin 1.0 mg/dL (0.0-0.2) H 05/02/18 03:34 Troponin I 0.07 ng/mL (< 0.04) H* 05/01/18 04:18 C-Reactive Protein 10 mg/L (Less than 10) H 04/29/18 18:03 B-Natriuretic Peptide 2049 pg/mL (Less than 100) H 04/29/18 15:28 Serum Total Protein 5.1 g/dL (6.4-8.9) L 05/02/18 03:34 Albumin 3.0 g/dL (3.5-5.7) L 05/02/18 03:34 Globulin 2.1 g/dL (2.4-3.5) L 05/02/18 03:34 Urine Clarity Cloudy (Clear) A 04/29/18 16:05 Ur Specific [place] 1.008 (1.010-1.025) L 04/29/18 16:05 Urine Protein 30 mg/dL (Neg-Trace) H 04/29/18 16:05 Ur Leukocyte Esterase Trace (Negative) H 04/29/18 16:05 Urine Microscopic WBC 5-15 per hpf (0-3) H 04/29/18 16:05 Ur Squamous Epith Cells Many per lpf (None-Few) H 04/29/18 16:05 Ur Culture Indicated? NO. (NO) A 04/29/18 16:05 Vancomycin Trough 18 mcg/mL (5-10) H 05/01/18 17:00 Exam: GENERAL: Ill-appearing male resting in bed comfortably. He wakes easily to stimuli. He displays repetitive speech. HEENT: Atraumatic and normocephalic. Nasal canula in place. CARDIOVASCULAR: Regular rate and rhythm. S1 and S2 present. No murmurs, rubs, or gallops present. RESPIRATORY: Diffusely decreased breath sounds bilaterally. No wheezes noted. ABDOMEN: Active bowel sounds x 4 quadrants. Abdomen is distended and soft. Patient expresses tenderness to palpation. No rebound or guarding noted. EXTREMITIES: Bandages present on bilateral legs, which show evidence of weeping. Bilateral LE edema present. Palliative Quality Palliative Quality: Screen for Code Status: Yes, Screen for Goals of Care: Yes, Screen for Pain: Yes, If Pain Regimen Started, Initiate Bowel Regimen: NA, Screen for Nausea/Vomitting: Yes Code Status: 04/29/18 17:31 Resuscitation Status: Active [RES] Routine Comment: Patient does not want to be Intubated. Resuscitation Status: Full Code Resuscitation Status: Active [RES] Routine Comment: Patient does not want to be Intubated. Resuscitation Status: [id number] - Labs CBC & Chem 7: 05/05/18 04:21 05/05/18 04:21 Labs: Laboratory Results - last 24 hr 05/04/18 05/04/18 05/04/18 06:55 12:15 15:00 WBC RBC Hgb Hct MCV MCH MCHC RDW Plt Count MPV Immature Plt Fraction Sodium Potassium Chloride Carbon Dioxide BUN Creatinine Est GFR ( Amer) Est GFR (Non-Af Amer) BUN/Creatinine Ratio Glucose POC Glucose 112 H 157 H Calculated Osmolality Calcium Lactate Dehydrogenase Vitamin B12 Folate Pleural Fluid Volume 980.0 Pleural Appearance Clear Pleural pH 6.60 Pleural RBC < 0.002 Pleural Tot Nuc Cell 103 Pleural Neutrophils 20.0 Pleural Band Neuts Test Not Performed Pleural Eosinophils Test Not Performed Pleural Basophils Test Not Performed Pleural Lymphocytes % 24.0 Pleural Monocytes % 3.0 Pleural Other Cells % 53.0 Pleural Total Protein Pleural LDH Pleural Glucose 05/04/18 05/04/18 05/04/18 15:00 15:49 20:42 WBC RBC Hgb Hct MCV MCH MCHC RDW Plt Count MPV Immature Plt Fraction Sodium Potassium Chloride Carbon Dioxide BUN Creatinine Est GFR ( Amer) Est GFR (Non-Af Amer) BUN/Creatinine Ratio Glucose POC Glucose 104 H 210 H Calculated Osmolality Calcium Lactate Dehydrogenase Vitamin B12 Folate Pleural Fluid Volume Pleural Appearance Pleural pH Pleural RBC Pleural Tot Nuc Cell Pleural Neutrophils Pleural Band Neuts Pleural Eosinophils Pleural Basophils Pleural Lymphocytes % Pleural Monocytes % Pleural Other Cells % Pleural Total Protein < 3.0 Pleural LDH 65 Pleural Glucose 162 05/05/18 05/05/18 05/05/18 04:21 04:21 04:21 WBC 7.9 RBC 3.66 L Hgb 11.0 L Hct 37.3 L MCV 101.9 H MCH 30.1 MCHC 29.5 L RDW 17.4 H Plt Count 84 L MPV 10.6 Immature Plt Fraction 5.1 Sodium 142 Potassium 4.4 Chloride 97 L Carbon Dioxide 36 H BUN 37 H Creatinine 1.73 H Est GFR ( Amer) 48 L Est GFR (Non-Af Amer) 40 L BUN/Creatinine Ratio 21 Glucose 135 H POC Glucose Calculated Osmolality 305 H Calcium 9.1 Lactate Dehydrogenase 233 Vitamin B12 580 Folate 7.7 Pleural Fluid Volume Pleural Appearance Pleural pH Pleural RBC Pleural Tot Nuc Cell Pleural Neutrophils Pleural Band Neuts Pleural Eosinophils Pleural Basophils Pleural Lymphocytes % Pleural Monocytes % Pleural Other Cells % Pleural Total Protein Pleural LDH Pleural Glucose - Impressions Impressions Thoracentesis 05/04/18 12:11 IMPRESSION: 1. Successful ultrasound guided right thoracentesis. D/ / Von Pacheco MD / Von Pacheco MD Interpreting Provider: Von Pacheco MD - ABG Interpretation ABG results: ABG ABG pH 7.32 pH Units (7.32-7.45) 04/29/18 21:47 ABG pCO2 58 mmHg (35-45) H 04/29/18 21:47 ABG pO2 84 mmHg (85-104) L 04/29/18 21:47 ABG O2 Saturation 95 % (95-98) 04/29/18 21:47 PT/INR, D-dimer PT 20.2 Seconds (9.4-12.1) H 04/29/18 22:03 Consult Discharge Plan - Plan Referrals: Zackary Hale MD [Primary Care Provider] - <MariannPatrica Sim - Last Filed: 05/05/18 16:58> Date of Encounter: 05/05/18 - Time Spent With Patient Total time spent is greater than 50% in coordination of care (as documented) at patient's floor/unit and/or counseling patient: - Constitutional Vitals: Abnormal lab results RBC 3.66 M/mcL (4.19-5.50) L 05/05/18 04:21 Hgb 11.0 g/dL (12.9-16.9) L 05/05/18 04:21 Hct 37.3 % (37.5-50.1) L 05/05/18 04:21 MCV 101.9 fL (83.0-100.0) H 05/05/18 04:21 MCHC 29.5 g/dL (31.6-35.5) L 05/05/18 04:21 RDW 17.4 % (11.5-14.5) H 05/05/18 04:21 Plt Count 84 K/mcL (140-400) L 05/05/18 04:21 Lymphocytes # 0.5 K/mcL (0.6-4.6) L 05/03/18 03:59 Nucleated RBCs/100 WBC 0.2 /100 WBC (0) H 05/01/18 04:18 PT 20.2 Seconds (9.4-12.1) H 04/29/18 22:03 ABG pCO2 58 mmHg (35-45) H 04/29/18 21:47 ABG pO2 84 mmHg (85-104) L 04/29/18 21:47 ABG HCO3 30 mEq/L (21-27) H 04/29/18 21:47 ABG Total CO2 32 mEq/L (20-26) H 04/29/18 21:47 VBG pH 7.31 pH Units (7.32-7.42) L 04/29/18 15:43 VBG pCO2 54 mmHg (41-51) H 04/29/18 15:43 VBG pO2 155 mmHg (25-50) H 04/29/18 15:43 VBG HCO3 28 mEq/L (21-27) H 04/29/18 15:43 Chloride 97 mEq/L (98-107) L 05/05/18 04:21 Carbon Dioxide 36 mEq/L (23-29) H 05/05/18 04:21 BUN 37 mg/dL (8-23) H 05/05/18 04:21 Creatinine 1.73 mg/dL (0.70-1.30) H 05/05/18 04:21 Est GFR ( Amer) 48 (> 60) L 05/05/18 04:21 Est GFR (Non-Af Amer) 40 (> 60) L 05/05/18 04:21 Glucose 135 mg/dL (70-105) H 05/05/18 04:21 POC Glucose 210 mg/dL (70-99) H 05/04/18 20:42 Calculated Osmolality 305 (280-300) H 05/05/18 04:21 Total Bilirubin 1.6 mg/dL (0.3-1.0) H 05/02/18 03:34 Direct Bilirubin 1.0 mg/dL (0.0-0.2) H 05/02/18 03:34 Troponin I 0.07 ng/mL (< 0.04) H* 05/01/18 04:18 C-Reactive Protein 10 mg/L (Less than 10) H 04/29/18 18:03 B-Natriuretic Peptide 2049 pg/mL (Less than 100) H 04/29/18 15:28 Serum Total Protein 5.1 g/dL (6.4-8.9) L 05/02/18 03:34 Albumin 3.0 g/dL (3.5-5.7) L 05/02/18 03:34 Globulin 2.1 g/dL (2.4-3.5) L 05/02/18 03:34 Urine Clarity Cloudy (Clear) A 04/29/18 16:05 Ur Specific [place] 1.008 (1.010-1.025) L 04/29/18 16:05 Urine Protein 30 mg/dL (Neg-Trace) H 04/29/18 16:05 Ur Leukocyte Esterase Trace (Negative) H 04/29/18 16:05 Urine Microscopic WBC 5-15 per hpf (0-3) H 04/29/18 16:05 Ur Squamous Epith Cells Many per lpf (None-Few) H 04/29/18 16:05 Ur Culture Indicated? NO. (NO) A 04/29/18 16:05 Vancomycin Trough 18 mcg/mL (5-10) H 05/01/18 17:00 - Attending Attestation I was present with the resident during the history and exam. I discussed the case with the resident and agree with the findings and plan as documented in the residents note. Family meeting between palliative care team (Tra Benton, Chaplain Grullon and myself) ant pt's Ciarra, Daughter Tavia and Son-in-law. Discussed pt's current medical condition, trajectory of illness, prognosis and treatment options. Explained to family that pt has deteriorated since last admission, is now more confused, and require more assistance for transfer. Family opted for comfort care only and hospice at home. Family was explained in detail the caring but not curing nature of hospice. Also encouraged to consider an alternative setting such as LTC when will no longer be able to care for pt at home. Family educated to call hospice team in case of symptoms and distress, and made aware that in case of need patient can be admitted as GIP to [facility]. Called [facility] for referral, discussed with hospice nurse Tawnya. Patient has a hospice diagnosis of end stage CHF, with PPS of 40%. Palliative Quality Code Status: 04/29/18 17:31 Resuscitation Status: Active [RES] Routine Comment: Patient does not want to be Intubated. Resuscitation Status: Full Code Resuscitation Status: Active [RES] Routine Comment: Patient does not want to be Intubated. Resuscitation Status: [id number] - Labs CBC & Chem 7: 05/05/18 04:21 05/05/18 04:21 Labs: Laboratory Results - last 24 hr 05/04/18 05/04/18 05/04/18 06:55 12:15 15:00 WBC RBC Hgb Hct MCV MCH MCHC RDW Plt Count MPV Immature Plt Fraction Sodium Potassium Chloride Carbon Dioxide BUN Creatinine Est GFR ( Amer) Est GFR (Non-Af Amer) BUN/Creatinine Ratio Glucose POC Glucose 112 H 157 H Calculated Osmolality Calcium Lactate Dehydrogenase Vitamin B12 Folate Pleural Fluid Volume 980.0 Pleural Appearance Clear Pleural pH 6.60 Pleural RBC < 0.002 Pleural Tot Nuc Cell 103 Pleural Neutrophils 20.0 Pleural Band Neuts Test Not Performed Pleural Eosinophils Test Not Performed Pleural Basophils Test Not Performed Pleural Lymphocytes % 24.0 Pleural Monocytes % 3.0 Pleural Other Cells % 53.0 Pleural Total Protein Pleural LDH Pleural Glucose 05/04/18 05/04/18 05/04/18 15:00 15:49 20:42 WBC RBC Hgb Hct MCV MCH MCHC RDW Plt Count MPV Immature Plt Fraction Sodium Potassium Chloride Carbon Dioxide BUN Creatinine Est GFR ( Amer) Est GFR (Non-Af Amer) BUN/Creatinine Ratio Glucose POC Glucose 104 H 210 H Calculated Osmolality Calcium Lactate Dehydrogenase Vitamin B12 Folate Pleural Fluid Volume Pleural Appearance Pleural pH Pleural RBC Pleural Tot Nuc Cell Pleural Neutrophils Pleural Band Neuts Pleural Eosinophils Pleural Basophils Pleural Lymphocytes % Pleural Monocytes % Pleural Other Cells % Pleural Total Protein < 3.0 Pleural LDH 65 Pleural Glucose 162 05/05/18 05/05/18 05/05/18 04:21 04:21 04:21 WBC 7.9 RBC 3.66 L Hgb 11.0 L Hct 37.3 L MCV 101.9 H MCH 30.1 MCHC 29.5 L RDW 17.4 H Plt Count 84 L MPV 10.6 Immature Plt Fraction 5.1 Sodium 142 Potassium 4.4 Chloride 97 L Carbon Dioxide 36 H BUN 37 H Creatinine 1.73 H Est GFR ( Amer) 48 L Est GFR (Non-Af Amer) 40 L BUN/Creatinine Ratio 21 Glucose 135 H POC Glucose Calculated Osmolality 305 H Calcium 9.1 Lactate Dehydrogenase 233 Vitamin B12 580 Folate 7.7 Pleural Fluid Volume Pleural Appearance Pleural pH Pleural RBC Pleural Tot Nuc Cell Pleural Neutrophils Pleural Band Neuts Pleural Eosinophils Pleural Basophils Pleural Lymphocytes % Pleural Monocytes % Pleural Other Cells % Pleural Total Protein Pleural LDH Pleural Glucose - ABG Interpretation ABG results: ABG ABG pH 7.32 pH Units (7.32-7.45) 04/29/18 21:47 ABG pCO2 58 mmHg (35-45) H 04/29/18 21:47 ABG pO2 84 mmHg (85-104) L 04/29/18 21:47 ABG O2 Saturation 95 % (95-98) 04/29/18 21:47 PT/INR, D-dimer PT 20.2 Seconds (9.4-12.1) H 04/29/18 22:03
--- NOTE | 2018-05-05 14:01 | Cardiology Progress Note ---
Date of Encounter: 05/05/18 Time of Encounter: 13:30 Assessment and Plan (1) Sepsis Current Visit: Yes Status: Acute Per cardiology: -Admitted with sepsis, pneumonia. -ON ATB. -Management per primary service. 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 Suspect possible fluid/dietary non-compliance. -BNP . Chest x-ray admission with bilateral pleural effusions. X-ray today with somewhat stable pleural effusions. -On lasix. -Has been diuresed > 11L. Euvolemic on exam, s/p thoracentesis yesterday. -Hx of ICMP. last LHC at [facility] 03/2017--s/p high risk PCI to prox and mid LAD and PTCA of diag, and PCI to the OM. -TTE 01/2018 with EF 20-25%, severely dilated LV. [place] not well visualized. Moderatley reduced RV function. -Repeat TTE 01/2018 shows EF 20-25%, global systolic dysfunction and no LV thrombus. -On BB. Previously on shwetha inhibitor, now off due to hypotension and RANDA. -Has AICD, denies ICD shocks. -With cardiomyopathy, will switch lopressor to toprol in am. Consider uptitration as BP will allow. -Can consider addition of shwetha if BP/renal function will allow. -Cardiology will sign off, will arrange close outpatient follow up. (3) Atrial flutter Current Visit: Yes Status: Acute Per cardiology: -ECG with new onset a.flutter. -Average HR previous 12 hours noted to be 104, a.flutter. -ON BB. -[id number] score 5 (age, HTN, CHF, vascular disease, DM). Not currently on anticoagulation. Had been on coumadin previously for LV thrombus, concern for non-compliance due to labile INRs. -Of note, on asa, plavix has been held due to thrombocytopenia. Last PCI 2016. -Platelets are down trending, today 84, on admission platelets were 181. -Will switch lopressor to toprol in am. Consider uptitrating if BP will allow. -Discussed and reviewed at length with and pateint regarding high [id number] score and increased risk of CVA/embolic event. Of note, patient has had recent falls, anemia, thrombocytopenia, previous non-compliance. Discussed at length with patient and family regarding risk of CVA/embolic event also educated on risk of bleeding. Patient and state understanding and agree with no anticoagulation at this time. Patient and will follow up outpatient with cardiology, can consider anticoagulation at later date. Qualifiers: Atrial flutter type: unspecified Qualified Code(s): I48.92 - Unspecified atrial flutter (4) Acute kidney injury Current Visit: Yes Status: Acute Per cardiology: -RANDA noted on admission, improving today. -Management per primary service. (5) CAD (coronary artery disease) Current Visit: No Status: Chronic Per cardiology: -Known CAD s/p PCI 03/2017 at [facility]. -Had repeat stress test [facility] which was abnormal, however thought to be due to known disease. Qualifiers: Coronary Disease-Associated Artery/Lesion type: [place] artery [place] vs. transplanted heart: [place]vas[place]ai heart Associated angina: without angina Qualified Code(s): I25.10 - Atherosclerotic heart disease of [place] coronary artery without angina pectoris Discussion w patient/family: The assessment and plan as outlined above was discussed with the patient and/or family members who expressed understanding and agreement. All questions were answered. Thank you for involving us in the care of your patient. Please call with any questions. Discussed and reviewed with Subjective Principal diagnosis: sepsis Interval history: Patient resting comfortably in bed. at bedside. States she feels like he is much improved today. Objective Vital Signs, Last 4 Hours Temp Pulse Resp BP Pulse Ox 05/05/18 12:38 109 05/05/18 11:36 97.6 F 103 18 108/83 95 05/05/18 10:51 20 96 General: Conversant, No Apparent Distress HEENT: Atraumatic, Normocephaly, Mucus Membranes Moist Neck: No JVD, Normal carotid pulses Cardiac: Normal S1 and S2, No Murmur, Other (Regularly irregular) Lungs: Other (Refused respiratory assessment. ) Neuro: Alert and responsive, Other (Oriented to person. ) Abdomen: Soft, Non-Tender Skin: Other (Bilateral lower extremities with multiple small scabbed areas. ) Musculoskeletal: No Chest Wall Tenderness Extremities: No Clubbing, No Cyanosis, No Edema, Normal Pulses Results 05/05/18 04:21 05/05/18 04:21 Lab Results Impressions Thoracentesis 05/04/18 12:11 IMPRESSION: 1. Successful ultrasound guided right thoracentesis. D/ / Von Pacheco MD / Von Pacheco MD Interpreting Provider: Von Pacheco MD Active Medications Lipase/Protease/Amylase (Creon Dr 6,000 Units Capsule) 2 each PO BIDWM CHARMAINE Stop: 11/01/18 17:01 Last Admin: 05/05/18 07:42 Dose: 2 each Aspirin (Aspirin Ec) 81 mg PO DAILY CHARMAINE Stop: 11/02/18 09:01 Last Admin: 05/05/18 07:42 Dose: 81 mg Bacitracin (Ak-Tracin) 1 appl TP BID CHARMAINE Stop: 11/01/18 21:01 Last Admin: 05/05/18 07:43 Dose: 1 appl Cholestyramine Resin (Cholestyramine) 4 gm PO BID CHARMAINE Stop: 11/01/18 21:01 Last Admin: 05/05/18 07:42 Dose: 4 gm Dextrose/Water (Dextrose 50% (Syg)) 25 ml IVP AD PRN PRN Reason: Hypoglycemia Stop: 10/29/18 17:40 Furosemide (Lasix) 20 mg PO BIDDIURETIC CHARMAINE Stop: 11/04/18 08:01 Last Admin: 05/05/18 07:41 Dose: 20 mg Glucagon (Glucagen) 1 mg IM ONCE PRN PRN Reason: Hypoglycemia Stop: 10/29/18 17:40 Glucose (Gluctose) 15 gm PO ONCE PRN PRN Reason: Hypoglycemia Stop: 10/29/18 17:40 Glucose (Gluctose) 30 gm PO ONCE PRN PRN Reason: Hypoglycemia Stop: 10/29/18 17:40 Dextrose (Dextrose 5%) 1,000 mls @ 100 mls/hr IVC .Q10H PRN PRN Reason: HYPOGLYCEMIA Stop: 10/29/18 17:40 Insulin Human Lispro (Humalog) 0 units SQ TIDAC CHARMAINE PRN Reason: Protocol Stop: 11/02/18 07:31 Last Admin: 05/05/18 11:52 Dose: 4 units Insulin Human Lispro (Humalog) 0 units SQ HS CHARMAINE PRN Reason: Protocol Stop: 11/01/18 21:01 Last Admin: 05/04/18 20:57 Dose: 2 units Lactulose (Lactulose) 20 gm PO BID CHARMAINE Stop: 11/01/18 21:01 Last Admin: 05/05/18 07:42 Dose: 20 gm Levalbuterol HCl (Xopenex) 0.63 mg IH [id number] CHARMAINE Stop: 11/02/18 22:01 Last Admin: 05/05/18 10:45 Dose: 0.63 mg Levofloxacin (Levaquin) 750 mg PO Q48H CHARMAINE Stop: 11/04/18 18:01 Melatonin (Melatonin) 6 mg PO HS PRN PRN Reason: Insomnia Stop: 10/31/18 20:33 Last Admin: 05/04/18 20:40 Dose: 6 mg Metoprolol Tartrate (Lopressor) 12.5 mg PO BID CHARMAINE Stop: 11/03/18 13:01 Last Admin: 05/05/18 07:41 Dose: 12.5 mg Naloxone HCl (Narcan) 0.4 mg IVP Q2MIN PRN PRN Reason: SEE COMMENTS Stop: 10/29/18 17:32 Nystatin (Mycostatin Cream) 1 appl TP BID [facility] Stop: 11/01/18 21:01 Last Admin: 05/05/18 07:43 Dose: 1 appl Perphenazine (Trilafon) 8 mg PO HS [facility] Stop: 11/01/18 21:01 Last Admin: 05/04/18 20:57 Dose: 8 mg Tiotropium [place] (Spiriva) 18 mcg IH DAILY [facility] Stop: 11/02/18 09:01 Last Admin: 05/05/18 07:43 Dose: 18 mcg Laboratory Tests 05/04/18 05/04/18 05/05/18 06:25 06:25 04:21 Hgb 11.0 L Plt Count 81 L 84 L Creatinine 1.83 H 05/05/18 04:21 Hgb Plt Count Creatinine 1.73 H - Imaging and Cardiology Chest Xray: report reviewed Stress Test: report reviewed Echo: report reviewed Cardiac cath: report reviewed - EKG Interpretation EKG results cardiology: other (Telemetry reviewed with average HR previous 12 hours noted to be 104,a .flutter. PVCs noted.) Consult Discharge Plan - Plan Referrals: Zackary Hale MD [Primary Care Provider] -
[2018-05-05] MEDS: *HR* LORazepam 2 MG/ML VIAL IVP PRN ×2 (16:27→22:07)
[2018-05-05] MEDS ORDERED: levoFLOXacin 750 MG TABLET PO SCH (18:00)
--- NOTE | 2018-05-05 18:37 | Internal Med Progress Note ---
Hospitalist Progress Note - Encounter Date of Encounter: 05/05/18 Time of Encounter: 08:30 - Subjective Interval History: Patient was seen and examined at bedside Much smaller awake and alert than yesterday. denies pain, Axox 2. believes that its june 1998. at bedside all questions answered he tolerated PO diet not complaining of pain - Exam Vitals: Temp Pulse Resp BP Pulse Ox 98.3 F 116 20 106/80 97 05/05/18 15:56 05/05/18 18:21 05/05/18 16:01 05/05/18 15:56 05/05/18 16:01 Exam: General: Patient is easily arousable, no acute distress, was standing by bed side with assistance Head: atraumatic, normocephalic, Eye: normal appearance, PERRL, no scleral icterus, no conjunctival injection ENT: mucous membranes moist, normal external ear exam Neck: normal inspection, trachea midline, Chest: normal inspection, symmetric chest rise Respiratory: decreased breathsounds secondary to body habitus, diminished breathsounds in the right and rales R>L Cardiovascular: Regular rate and rhythm. s1 and s2 Abdomen: Bowel sounds present normoactive x-4 quadrants. Abdomen is soft, nondistended. no Epigastric tenderness. No guarding or rebound. No organomegaly noted, obese musculoskeletal: Spontaneously moving all extremities. Skin: warm, dry, intact.Venous stasis ulcers bilaterally, erythema of left lower extremity cellulitis ( wrapped in kerlex, no signs of bleeding or discharge ) Neuro: Axox2, moves all extremities, was standing by bedside, however unsteady on his feet. CN2-21 intact - Assessment and Plan (1) Sepsis Current Visit: Yes Status: Acute Assessment and Plan: Likely secondary to to right-sided pneumonia is visualized on chest CT. - resolved Strep pneumonia antigen negative. Legionella antigen pending. Blood cultures NGTD Normalized leukocytosis, afebrile, lactate WNL was transferred to step down from ICU on 05/02 Conservative with fluid resuscitation due to severe heart failure antibiotics deescalated to levaquin on 05/02 by the pulmonology team (2) HCAP (healthcare-associated pneumonia) Current Visit: Yes Status: Acute Assessment and Plan: management as per above (3) Respiratory failure Current Visit: Yes Status: Acute Assessment and Plan: Respiratory failure with hypoxia and hypercapnia in the setting of severe systolic heart failure and health care associated pneumonia. Currently saturating in the 90s on 3L by nasal cannula. Continue BiPAP while sleeping for improved preload and afterload CXR on 05/04-Moderate right effusion, not substantially changed s/p thoracocentesis on 05/04/18 (4) Pleural effusion, right Current Visit: Yes Status: Acute Assessment and Plan: CXR repeated on 05/04/18- Moderate right effusion, not substantially changed. 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 last LHC at [facility] 03/2017--s/p high risk PCI to prox and mid LAD and PTCA of diag , and PCI to the OM. -TTE 01/2018 with EF 20-25%, severely dilated LV. Union not well visualized. Moderately reduced RV function. -Repeat TTE 01/2018 shows EF 20-25%, global systolic dysfunction and no LV thrombus. (6) Atrial flutter Current Visit: Yes Status: Acute Assessment and Plan: chads vasc 5 (age, HTN, CHF, vascular disease, DM). Not currently on anticoagulation. cardiology team discusssed risks and benefits with family and they decided to hold off of cardiology on board currently on ASA and plavix (stopped on 05/04 for thrombocytopenia) - Last PCI . started on metoprolol 12.5 mg BID ( hold for HR <60 and SBP <90) platelets stable in the 80s (7) COPD (chronic obstructive pulmonary disease) Current Visit: No Status: Chronic Assessment and Plan: Saturating well on 4L NC, continue BiPAP at night and while sleeping. xopenex and spiriva (8) Altered mental status Current Visit: Yes Status: Acute Assessment and Plan: mental status has improved on 05/[address] but not time Head CT on 10/5 did not reveal acute intracranial abnormality No significant metabolic abnormalities present We will continue treatment of pneumonia and comorbidities which may be contributing to his altered mental status, patient may have some underlying dementia. resume home antipsychotic avoid benzos (9) Acute on chronic renal failure Current Visit: No Status: Acute Assessment and Plan: RANDA at admission with serum creatinine of 2.31 now 1.7 trending down Jamel lasix discontinued secondary to worsening metabolic alkalosis continue strict I/O continue to monitor renal functions (10) Cellulitis Current Visit: Yes Status: Acute Assessment and Plan: Chronic venous stasis and multiple oozing ulcers on bilateral lower extremities are present. Abx deescalated by ICU team Continue with daily wound care for venous stasis ulcers. (11) Diabetes Current Visit: No Status: Chronic Assessment and Plan: Low-dose corrective sliding scale (12) Obesity Current Visit: No Status: Chronic Assessment and Plan: nutrition consult (13) Bicytopenia Current Visit: Yes Status: Acute Assessment and Plan: macrocytic anemia and thrombocytopenia will send b12, LDH platelets were 181 on admission on 04/29- trended down to 103 on 05/01, now 81 heparin SC restarted s/p PCI in 03/2017- on DAPT- stopped plavix (discussed with family) patient was admitted fro sepsis secondary to HCAP will continue to monitor platelets HIT panel sent ( low probability was on SC heparin) hematology recs appreciated (14) DVT prophylaxis Current Visit: No Status: Chronic Assessment and Plan: SCDs (15) Advance care planning Current Visit: Yes Status: Acute Assessment and Plan: Patient was discharged from [facility] approximately one week ago, at which time he was enrolled in hospice. it was revoked by on this admission palliative was consulted as prognosis remains poor I discussed this / daughter and sister also Patient is DNR/DNI for home hospice in the AM - Time Spent with Patient Total time spent is greater than 50% in coordination of care (as documented) at patient's floor/unit and/or counseling patient: Internal Medicine: Result - Labs CBC & Chem 7: 05/05/18 04:21 05/05/18 04:21 Labs: Short CBC 05/05/18 Range/Units 04:21 WBC 7.9 (4.3-11.1) K/mcL Hgb 11.0 L (12.9-16.9) g/dL Hct 37.3 L (37.5-50.1) % Plt Count 84 L (140-400) K/mcL BMP 05/05/18 04:21 Sodium 142 Potassium 4.4 Chloride 97 L Carbon Dioxide 36 H BUN 37 H Creatinine 1.73 H Glucose 135 H Calcium 9.1 - ABG Interpretation ABG results: ABG ABG pH 7.32 pH Units (7.32-7.45) 04/29/18 21:47 ABG pCO2 58 mmHg (35-45) H 04/29/18 21:47 ABG pO2 84 mmHg (85-104) L 04/29/18 21:47 ABG O2 Saturation 95 % (95-98) 04/29/18 21:47 PT/INR, D-dimer PT 20.2 Seconds (9.4-12.1) H 04/29/18 22:03 Consult Discharge Plan - Plan Referrals: Alexia,Zackary Barth MD [Primary Care Provider] - (1) Sepsis Qualifiers: Sepsis type: sepsis due to unspecified organism Qualified Code(s): A41.9 - Sepsis, unspecified organism (3) Respiratory failure Qualifiers: Chronicity: acute Respiratory failure complication: hypoxia Qualified Code(s ): J96.01 - Acute respiratory failure with hypoxia (6) Atrial flutter Qualifiers: Atrial flutter type: unspecified Qualified Code(s): I48.92 - Unspecified atrial flutter (7) COPD (chronic obstructive pulmonary disease) 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 - Other emphysema (8) Altered mental status Qualifiers: Altered mental status type: unspecified Qualified Code(s): R41.82 - Altered mental status, unspecified (9) Acute on chronic renal failure Qualifiers: Acute renal failure type: unspecified Chronic kidney disease stage: stage 3 ( moderate) Qualified Code(s): N17.9 - Acute kidney failure, unspecified; N18.3 - Chronic kidney disease, stage 3 (moderate) (10) Cellulitis Qualifiers: Site of cellulitis: extremity Site of cellulitis of extremity: lower extremity Laterality: unspecified laterality Qualified Code(s): L03.119 - Cellulitis of unspecified part of limb (11) Diabetes Qualifiers: Diabetes mellitus type: type 2 Diabetes mellitus terminal operations manager insulin use: without terminal operations manager use Diabetes mellitus complication status: without complication Qualified Code(s): E11.9 - Type 2 diabetes mellitus without complications (12) Obesity Qualifiers: Obesity type: due to excess calories Obesity classification: adult class 3 ( BMI >= 40) Serious obesity comorbidity presence: without serious comorbidity Body mass index: BMI 40.0-44.9 Qualified Code(s): E66.01 - Morbid (severe) obesity due to excess calories; Z68.41 - Body mass index (BMI) 40.0-44.9, adult
[2018-05-05] MEDS: Melatonin 3 MG TABLET PO PRN (21:38)
[2018-05-05] MEDS: Perphenazine 8 MG TABLET PO SCH (21:38)
[2018-05-06] MEDS: *HR* LORazepam 2 MG/ML VIAL IVP PRN ×2 (04:21→09:38)
[2018-05-06] MEDS: Levalbuterol Neb 0.63 MG/3 ML IH SCH ×3 (04:51→15:57)
[2018-05-06] MEDS: Furosemide 20 MG TABLET PO SCH (08:00)
[2018-05-06] MEDS: Cholestyramine 4 GM POWD.PACK PO SCH (08:00)
[2018-05-06] MEDS: Lactulose Oral Soln 20 GM/30 ML UDC PO SCH (08:01)
[2018-05-06] MEDS: Aspirin Enteric Coated 81 MG Tablet PO SCH (08:01)
[2018-05-06] MEDS: Nystatin Cream 15 GM TUBE TP SCH (08:13)
[2018-05-06] MEDS: Insulin LISPRO 300 UNITS/3 ML VIAL SQ SCH ×2 (08:17→12:01)
[2018-05-06] MEDS ORDERED: Metoprolol XL (24 HR) Succ 25 MG TAB.ER.24H PO SCH (09:00)
[2018-05-06] MEDS: Tiotropium 18 MCG inhalation IH SCH (11:37)
[2018-05-06 11:45] VITALS: BP 127/77
[2018-05-06 14:24] LABS: Fluid Source for Albumin PEURAL FLUID
--- NOTE | 2018-05-06 14:53 | Discharge Summary ---
Orders not resulted at time of discharge: Pending orders 05/04/18 13:36 Hep Ind Thromb(HIT) PF4 IgG Stat 05/04/18 15:00 Albumin,Body Fluid Routine Date of Encounter: 05/06/18 Time of Encounter: 14:47 - Discharge Diagnosis (1) Sepsis Priority: Primary Status: Acute Qualifiers: Sepsis type: sepsis due to unspecified organism Qualified Code(s): A41.9 - Sepsis, unspecified organism (2) HCAP (healthcare-associated pneumonia) Priority: Secondary Status: Acute (3) Respiratory failure Priority: Secondary Status: Acute Qualifiers: Chronicity: acute Respiratory failure complication: hypoxia Qualified Code(s): J96.01 - Acute respiratory failure with hypoxia (4) Pleural effusion, right Priority: Secondary Status: Acute (5) 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 Priority: Secondary Status: Chronic (6) Atrial flutter Priority: Secondary Status: Acute Qualifiers: Atrial flutter type: unspecified Qualified Code(s): I48.92 - Unspecified atrial flutter (7) COPD (chronic obstructive pulmonary disease) Priority: Secondary Status: Chronic 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 - Other emphysema (8) Altered mental status Priority: Secondary Status: Acute Qualifiers: Altered mental status type: unspecified Qualified Code(s): R41.82 - Altered mental status, unspecified (9) Acute on chronic renal failure Priority: Secondary Status: Acute Qualifiers: Acute renal failure type: unspecified Chronic kidney disease stage: stage 3 (moderate) Qualified Code(s): N17.9 - Acute kidney failure, unspecified; N18.3 - Chronic kidney disease, stage 3 (moderate) (10) Cellulitis Priority: Secondary Status: Acute Qualifiers: Site of cellulitis: extremity Site of cellulitis of extremity: lower extremity Laterality: unspecified laterality Qualified Code(s): L03.119 - Cellulitis of unspecified part of limb (11) Diabetes Priority: Secondary Status: Chronic Qualifiers: Diabetes mellitus type: type 2 Diabetes mellitus terminal supervisor insulin use: without terminal supervisor use Diabetes mellitus complication status: without complication Qualified Code(s): E11.9 - Type 2 diabetes mellitus without complications (12) Obesity Priority: Secondary Status: Chronic Qualifiers: Obesity type: due to excess calories Obesity classification: adult class 3 (BMI >= 40) Serious obesity comorbidity presence: without serious comorbidity Body mass index: BMI 40.0-44.9 Qualified Code(s): E66.01 - Morbid (severe) obesity due to excess calories; Z68.41 - Body mass index (BMI) 40.0-44.9, adult (13) Bicytopenia Priority: Secondary Status: Acute (14) DVT prophylaxis Priority: Secondary Status: Chronic (15) Advance care planning Priority: Secondary Status: Acute Hospital course: "Mr. Emmanuel is a 63 year old male PMH significant for severe HFrEF s/p AICD e.f 20-25, CAD, diabetes, hypertension, COPD, and chronic respiratory failure. Patient was brought to the emergency room from home, due to generalized weakness and poor by mouth intake for the past couple of days, associated with change in mental status, and decreased urinary output. Family denies fever, chills but reports a nonproductive cough, which has been more frequent for the past couple of days. They also reports that he seems that the patient has been swelling. Patient was recently discharged home with home hospice" patient presented with above presentation and was admitted to the ICU for acute on chronic respiratory failure and sepsis secondary to HCAP. he was treated for H, respiratory failure, sepsis, severe systolic CHF, altered mental status, right pleural effusion, and acute on chronic renal failure along with cellulitis while in the ICU and was transferred to stepdown on 05/02/18 for further care. Palliative was consulted for goals of care as patient has multiple comorbidities and was discharged 2 weeks prior to this admission with home hospice. Chest x-ray was repeated on 05/04 which showed persistent right- sided pleural effusion, IR was consulted and thoracocentesis was performed on . Cardiology was consulted due to new onset atrial flutter in setting of heart failure reduced EF and recommendations were followed. He developed thrombocytopenia during admission, he was on dual antiplatelets for PCI performed in March 2017. Plavix was stopped as he had completed one year of dual antiplatelets. Chadsvasc scre was 5 cardiology and I discussed with family and due to his comorbidities he was found to be a poor candidate for anticoagulations and family agreed to hold off anticoagulation for atrial flutter. Family meeting held on 05/05, CODE STATUS was changed to DNR CCA DNI and family decided for him to be discharged home with home hospice. Comfort medication prescriptions was provided by the palliative team. Home hospice was set up by the palliative team. Patient was discharged with home hospice. Discharge discussed with: patient, family, nurse, social work, case management, test consultant - Time Spent with Patient Total time spent providing and/or coordinating discharge services: Greater than 30 minutes (50) - Discharge Medications Prescriptions: Hyoscyamine SL [Levsin Sl] 0.125 mg SL Q4HR PRN 4 Days #30 ml PRN Reason: Secretions LORazepam [Ativan] 1 mg PO Q6HR PRN 3 Days #15 tablet PRN Reason: Anxiety Furosemide [Lasix] 20 mg PO BIDDIURETIC #60 tablet Lactulose 20 gm PO HS #100 mls levoFLOXacin [Levaquin] 750 mg PO Q48H 7 Days #3 tablet Metoprolol XL (24 HR) Succ [Toprol Xl] 12.5 mg PO DAILY #30 tab.er.24h MORPHINE SUL Oral CONC [Roxanol Oral Conc] 5 mg PO Q3H PRN 4 Days #10 oral.syg PRN Reason: Dyspnea Home Medications: Albuterol Sulfate [Albuterol Inhaler] 2 puff IH Q4HR PRN 05/17/15 [History] Ezetimibe [Zetia] 10 mg PO DAILY 05/17/15 [History] Metformin HCl [Glucophage] 1,000 mg PO BID 05/17/15 [History] Tiotropium [Spiriva] 18 mcg IH DAILY 05/17/15 [History] Lipase/Protease/Amylase [Creon Dr 12,000 Units Capsule] 1 cap PO BIDWM 11/10/17 [History] Cholestyramine 4 g PO BID 01/24/18 [History] Perphenazine [Trilafon] 8 mg PO HS 01/24/18 [History] Tamsulosin [Flomax] 0.4 mg PO DAILY #30 capsule 02/04/18 [Rx] Bacitracin OINT [Ak-Tracin] 1 appl TP BID 30 Days #1 tube 03/23/18 [Rx] Nystatin Cream [Mycostatin Cream] 1 appl TP BID 30 Days #1 tube 03/23/18 [Rx] Aspirin [Lo-Dose Aspirin EC] 81 mg PO DAILY 04/09/18 [History] Lactulose 20 gm PO BID #60 udc 04/14/18 [Rx] Furosemide [Lasix] 20 mg PO BIDDIURETIC #60 tablet 05/06/18 [Rx] Hyoscyamine SL [Levsin Sl] 0.125 mg SL Q4HR PRN 4 Days #30 ml 05/06/18 [Rx] LORazepam [Ativan] 1 mg PO Q6HR PRN 3 Days #15 tablet 05/06/18 [Rx] Lactulose 20 gm PO HS #100 mls 05/06/18 [Rx] MORPHINE SUL Oral CONC [Roxanol Oral Conc] 5 mg PO Q3H PRN 4 Days #10 oral.syg 05/06/18 [Rx] Metoprolol XL (24 HR) Succ [Toprol Xl] 12.5 mg PO DAILY #30 tab.er.24h 05/06/18 [Rx] levoFLOXacin [Levaquin] 750 mg PO Q48H 7 Days #3 tablet 05/06/18 [Rx] Allergies/Adverse Reactions: 3 Allergy/AdvReac Type Severity Reaction Status Date / Time loxapine [From Loxitane] Allergy See Verified 04/16/18 10:55 Comments betamethasone AdvReac Hives Verified 04/16/18 10:55 [From Lotrisone] clotrimazole [From Lotrisone] AdvReac Hives Verified 04/16/18 10:55 Sulfa (Sulfonamide AdvReac Hives Verified 04/16/18 10:55 Antibiotics) Date of admission: 04/29/18 17:49 Primary care physician: Zackary Hale MD Consults: 04/29/18 18:23 Consult to Pulmonology [CONS] Stat Consulting Provider: [facility] Reason for Consult: Hypotension. severe CHF. Sepsis. Call Completed: Yes 05/02/18 08:24 Consult to Palliative Care [CONS] Routine Comment: Consulting Provider: Palliative Care [facility] Reason for Consult: advanced care planning Call Completed: Yes 05/03/18 10:11 Consult to Occupational Therapy [CONS] Routine Comment: Evaluate, develop and implement POC Reason for Consult: weakness Does patient have active BEDREST order?: No Is patient medically & hemodynamically stable?: Yes Patient assessed for mobility or mobilized this visit?: Yes Consult to Physical Therapy [CONS] Routine Comment: Evaluate, develop and implement POC Reason for Consult: weakness Does patient have active BEDREST order?: No Is patient medically & hemodynamically stable?: Yes Patient assessed for mobility or mobilized this visit?: Yes 05/03/18 17:41 OT [Consult to Occupational Therapy] [CONS] Routine Comment: Evaluate, develop and implement POC Reason for Consult: disposition Does patient have active BEDREST order?: No Is patient medically & hemodynamically stable?: Yes Patient assessed for mobility or mobilized this visit?: Yes 05/03/18 18:03 Consult to Nutrition [CONS] Routine Comment: Consulting Provider: NUTRITION Reason for Dietary Consult: PO Supplementation 05/03/18 18:10 Consult to Speech Therapy [CONS] Routine Comment: Evaluate, develop and implement POC Reason for Consult: dysphagia Call Completed: No 05/03/18 18:22 Consult to Cardiology [CONS] Routine Comment: Consulting Provider: Card[facility] Reason for Consult: HFref 25%, Call Completed: No 05/04/18 11:48 Consult to Interventional Radiology [CONS] Routine Consulting Provider: Radiology Interventional [facility] Reason for Consult: pleural effusion, diagnostic and therapeutic Call Completed: Yes 05/04/18 12:46 Consult to Oncology Hematology [CONS] Routine Consulting Provider: Mimi Briceno Reason for Consult: thrombocytopenia ? HIT Call Completed: Yes - Constitutional Vitals: Temp Pulse Resp BP Pulse Ox 99.2 F 149 26 127/77 93 05/06/18 11:43 05/06/18 12:14 05/06/18 11:43 05/06/18 11:43 05/06/18 11:43 Exam: General: Patient is easily arousable, no acute distress, was standing by bed side with assistance Head: atraumatic, normocephalic, Eye: normal appearance, PERRL, no scleral icterus, no conjunctival injection ENT: mucous membranes moist, normal external ear exam Neck: normal inspection, trachea midline, Chest: normal inspection, symmetric chest rise Respiratory: decreased breathsounds secondary to body habitus, diminished breathsounds in the right and rales R>L Cardiovascular: Regular rate and rhythm. s1 and s2 Abdomen: Bowel sounds present normoactive x-4 quadrants. Abdomen is soft, nondistended. no Epigastric tenderness. No guarding or rebound. No organomegaly noted, obese musculoskeletal: Spontaneously moving all extremities. Skin: warm, dry, intact.Venous stasis ulcers bilaterally, erythema of left lower extremity cellulitis ( wrapped in kerlex, no signs of bleeding or discharge ) Neuro: Axox2, moves all extremities, was standing by bedside, however unsteady on his feet. CN2-21 intact - Patient Status Disposition: Hospice - Home Condition: Fair Functional capacity at discharge: bed bound Overall status at discharge: patient is not back to baseline - Discharge Instructions Follow Up With: Zackary Hale MD [Primary Care Provider] - Forms: ED Satisfaction Letter - Diet and Activity Activity: as per physical therapy Diet: advance to your usual diet
--- NOTE | 2018-05-06 15:48 | Physician Discharge Referral ---
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 For more information, call the [place] Tobacco Quit Line at 9-554-UKQX-NOW. - Dressing/Wound Care Site: Cleanse leg ulcers daily and apply bacitracin. Cover with nonadhesive dressings - Diet/Nutrition Diet/Nutrition Orders: No Added Salt (EDGAR) - Activity Activity Orders: Bedrest - Transfer Medications Prescriptions: Hyoscyamine SL [Levsin Sl] 0.125 mg SL Q4HR PRN 4 Days #30 ml PRN Reason: Secretions LORazepam [Ativan] 1 mg PO Q6HR PRN 3 Days #15 tablet PRN Reason: Anxiety Furosemide [Lasix] 20 mg PO BIDDIURETIC #60 tablet Lactulose 20 gm PO HS #100 mls levoFLOXacin [Levaquin] 750 mg PO Q48H 7 Days #3 tablet Metoprolol XL (24 HR) Succ [Toprol Xl] 12.5 mg PO DAILY #30 tab.er.24h MORPHINE SUL Oral CONC [Roxanol Oral Conc] 5 mg PO Q3H PRN 4 Days #10 oral.syg PRN Reason: Dyspnea Home Medications: Albuterol Sulfate [Albuterol Inhaler] 2 puff IH Q4HR PRN 05/17/15 [History] Ezetimibe [Zetia] 10 mg PO DAILY 05/17/15 [History] Metformin HCl [Glucophage] 1,000 mg PO BID 05/17/15 [History] Tiotropium [Spiriva] 18 mcg IH DAILY 05/17/15 [History] Lipase/Protease/Amylase [Creon Dr 12,000 Units Capsule] 1 cap PO BIDWM 11/10/17 [History] Cholestyramine 4 g PO BID 01/24/18 [History] Perphenazine [Trilafon] 8 mg PO HS 01/24/18 [History] Tamsulosin [Flomax] 0.4 mg PO DAILY #30 capsule 02/04/18 [Rx] Bacitracin OINT [Ak-Tracin] 1 appl TP BID 30 Days #1 tube 03/23/18 [Rx] Nystatin Cream [Mycostatin Cream] 1 appl TP BID 30 Days #1 tube 03/23/18 [Rx] Aspirin [Lo-Dose Aspirin EC] 81 mg PO DAILY 04/09/18 [History] Lactulose 20 gm PO BID #60 udc 04/14/18 [Rx] Furosemide [Lasix] 20 mg PO BIDDIURETIC #60 tablet 05/06/18 [Rx] Hyoscyamine SL [Levsin Sl] 0.125 mg SL Q4HR PRN 4 Days #30 ml 05/06/18 [Rx] LORazepam [Ativan] 1 mg PO Q6HR PRN 3 Days #15 tablet 05/06/18 [Rx] Lactulose 20 gm PO HS #100 mls 05/06/18 [Rx] MORPHINE SUL Oral CONC [Roxanol Oral Conc] 5 mg PO Q3H PRN 4 Days #10 oral.syg 05/06/18 [Rx] Metoprolol XL (24 HR) Succ [Toprol Xl] 12.5 mg PO DAILY #30 tab.er.24h 05/06/18 [Rx] levoFLOXacin [Levaquin] 750 mg PO Q48H 7 Days #3 tablet 05/06/18 [Rx] Allergies/Adverse Reactions: 3 Allergy/AdvReac Type Severity Reaction Status Date / Time loxapine [From Loxitane] Allergy See Verified 04/16/18 10:55 Comments betamethasone AdvReac Hives Verified 04/16/18 10:55 [From Lotrisone] clotrimazole [From Lotrisone] AdvReac Hives Verified 04/16/18 10:55 Sulfa (Sulfonamide AdvReac Hives Verified 04/16/18 10:55 Antibiotics) Certification: Further, I certify that my clinical findings support that this patient is homebound (i.e. absences from home require considerable and taxing effort and are for medical reasons or yarsanism services or infrequently or short duration when for other reasons) because: Homebound Reason: Patient requires assistance of a person or device to safely leave home, Severity of cardiac or pulmonary status limits activity tolerance Attestation: My signature below is to certify that this patient is under my care and that I, or nurse practitioner, or a physician's assistant auto center manager working with me, has a face-to -face encounter with this patient. 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 For more information, call the [employer] Tobacco Quit Line at 4-789-CCXK-NOW. Certification: Further, I certify that my clinical findings support that this patient is homebound (i.e. absences from home require considerable and taxing effort and are for medical reasons or yarsanism services or infrequently or short duration when for other reasons) because: Attestation: My signature below is to certify that this patient is under my care and that I, or nurse practitioner, or a physician's assistant auto center manager working with me, has a face-to -face encounter with this patient.
== END 2018-05-06 15:15 | disposition hospice, home (50) | DRG 871 ==
LOC: EMEROOARM 15:15 → 2ANU 15:15 → SUATTDRO 17:49 → 2NNU 18:04 → ICNU 19:55 → 2NNU 05-02 13:12
PROVIDERS: ADMIT Internal Medicine; ATTEND Internal Medicine